=== PATIENT | male | born 1955 | race Caucasian/White ===

== ENCOUNTER 2018-01-20 21:43 | Emergency (ER) | payer OTHER, SELFPAY ==
[2018-01-20 21:48] VITALS: BP 196/103; PULSE 80; RESP 18; TEMP 36.9; O2SAT 99; BMI 29.9
[2018-01-20 22:47] VITALS: BP 186/107; PULSE 58; RESP 17; O2SAT 99
--- NOTE | 2018-01-20 23:35 | ED_ITS ---
HPI - Dental/Oral General Chief complaint: Dental/Oral Stated complaint: SWELLING OF LEFT SIDE CONCERN OF INFECTION PAIN Time Seen by Provider: 01/20/18 23:04 Source: patient Mode of arrival: ambulatory Limitations: no limitations History of Present Illness HPI Narrative: patient is a 62-year-old male who presents with left lower tooth pain. He says his it has been ongoing he saw a dentist 2 weeks ago he had a deep cleaning. The he then had increasing pain with the dentist today the dentist actually left but he did see the hygienist. Who repeated x-rays and thought that she saw an abscess. Was unable to prescribe him antibiotics pain progressively gotten worse. He has not had any fever or chills. He is at appointment with the dentist Tuesday morning. MD Complaint: tooth pain 2 1. No abscess no dentin Related Data Home Medications Medication Instructions Recorded Confirmed ASPIRIN (#ASPIRIN) 325 mg PO Q DAY #0 02/18/11 OMEPRAZOLE 20 mg PO Q DAY #0 02/18/11 Previous Rx's Medication Instructions Recorded atenolol 0 PO QDAY #90 tab 04/28/17 dextroamphetamine-amphetamine 20 20 mg PO BID #60 tab 01/02/18 mg tablet amoxicillin 500 mg PO TID #21 cap 01/20/18 Allergies Allergy/AdvReac Type Severity Reaction Status Date / Time No Known Drug Allergies Allergy Verified 01/20/18 21:48 Review of Systems Review of Systems GENERAL: Denies chills,fever HEENT: see HPI RESPIRATORY: Denies dyspnea, cough, wheezing CARDIOVASCULAR: Denies chest pain, palpitations GASTROINTESTINAL: Denies nausea, vomiting MUSCULOSKELETAL: Denies extremity pain, injury SKIN: No rash, no laceration, no pruritus NEUROLOGIC: Denies weakness, dizziness, headache, numbness 8 point review of systems is negative except for those stated above and HPI Exam Initial Vital Signs Initial Vital Signs: Vital Signs Temperature 98.5 F 01/20/18 21:48 Pulse Rate 80 01/20/18 21:48 Respiratory Rate 18 01/20/18 21:48 Blood Pressure 196/103 H 01/20/18 21:48 Pulse Oximetry 99 01/20/18 21:48 GENERAL: Well-appearing, well-nourished and in no acute distress. HENT: is no dental abscess, no trismus significant facial swelling CARDIOVASCULAR: peripheral pulses in tact, cap refill <2 sec RESPIRATORY: No respiratory distress, speaks in full sentences without difficulty EXTREMITIES: Normal range of motion, no clubbing or edema. Neurovascularly intact NEUROLOGICAL: Cranial nerves II through XII grossly intact. Normal gait and speech. SKIN: Warm, dry, no petechiae, no rashes or lesions. Course Orders Ordered: Discontinued Medications Amoxicillin ( Trimox 250mg Prepack) 1 bottle MISC SEEINSTR ONE Stop: 01/20/18 23:36 Last Admin: 01/20/18 23:49 Dose: 1 bottle Vital Signs - 8 hr 01/20/18 21:48 01/20/18 22:47 Temperature 98.5 F Pulse Rate 80 58 L Respiratory Rate 18 17 Blood Pressure 196/103 H Blood Pressure [Right Arm] 186/107 H Pulse Oximetry 99 99 MDM - Dental/Oral MDM Narrative Medical decision making narrative: offered patient a dental block however at this time he declined. Would just like antibiotics. Discharge Plan Departure Patient Disposition: Home Clinical Impression: Dental abscess Discharge Date/Time: 01/20/18 23:52 Interventions: ED Discharge Assessment Last Done: 01/20/18 23:52 Instructions: Tooth Abscess Activity Restrictions/Additional Instructions: *You have been diagnosed with Dental pain *Continue to take medications as directed amoxicillin 500 mg 3 times a day for 7 days Motrin 600 mg every 6-8 hours if needed Tylenol 650 mg every 4-6 hours if needed *Follow up with your primary care provider in 2-3 days, follow up with dentist *Return to ER if you should have increasing pain, facial swelling, or any new, worsening or concerning symptoms Prescriptions: New amoxicillin 500 mg capsule 500 mg PO TID Qty: 21 RF: 0 No Action ASPIRIN (#ASPIRIN) 325 mg PO Q DAY Qty: 0 RF: 0 OMEPRAZOLE 20 mg PO Q DAY Qty: 0 RF: 0 atenolol 50 MG tablet PO QDAY Qty: 90 RF: 3 dextroamphetamine-amphetamine [Adderall] 20 mg tablet 20 mg PO BID Qty: 60 RF: 0
[2018-01-20] MEDS: AMOXICILLIN 250 MG PREPACK 1 BOTTLE MISC (23:49)
== END 2018-01-20 23:52 | disposition home or self-care (01) ==
PROVIDERS: Emergency Provider Emergency Medicine; PCP Family Medicine
DX: K04.7 Periapical abscess without sinus (principal)
CPT/HCPCS: 99282

== ENCOUNTER → 2019-08-17 11:41 | Outpatient (CLI) | payer OTHER, SELFPAY ==
[2019-08-17 12:17] LABS: Add Manual Diff / Slide Review NO; Basophils Absolute Auto 100 /uL (0-100); Basophils Percent Auto 0.8 % (0-2); Eosinophils Absolute Auto 100 /uL (0-450); Eosinophils Percent Auto 2.2 % (2-4); Hematocrit 45.6 % (41-53); Hemoglobin 15.6 g/dL (13.5-17.5); Lymphocytes Absolute Auto 1300 /uL (1100-4500); Lymphocytes Percent Auto 19.3 % (25-40); Mean Corpuscular HGB Conc 34.3 % (30-36); Mean Corpuscular Volume 87.5 fL (80-100); Monocytes Absolute Auto 500 /uL (0-900); Monocytes Percent Auto 8.2 % (3-14); Neutrophils Absolute Auto 4500 /uL (1500-7000); Neutrophils Percent Auto 69.5 % (50-75); Platelet Count 386 X10^3/uL (150-400); Red Blood Cell Count 5.21 X10^6/uL (4.5-5.9); Red Cell Distribution Width 13.3 % (11.6-14.8); White Blood Cell Count 6.5 X10^3/uL (4.5-11.0)
[2019-08-17 13:33] LABS: Alanine Aminotransferase 23 IU/L (<50); Albumin 4.7 g/dL (3.5-5.0); Albumin Globulin Ratio 1.3 (1.0-2.8); Alkaline Phosphatase 56 U/L (38-126); Aspartate Aminotransferase 27 IU/L (17-59); BUN Creatinine Ratio 21.4 (6-22); Bilirubin Total 0.6 mg/dL (0.2-1.3); Blood Urea Nitrogen 21 mg/dL (9-20); Calcium 9.8 mg/dL (8.4-10.2); Carbon Dioxide 28 mmol/L (22-32); Chloride 103 mmol/L (98-107); Cholesterol 273 mg/dL (140-199); Estimated Glomerular Filt Rate > 60.0 mL/min (>60); Globulin 3.5 g/dL (1.7-4.1); Glucose 114 mg/dL (80-110); HDL Cholesterol 33 mg/dL (40-60); HEMOLYSIS < 15 (0-50); LDL Cholesterol Calculated 206 mg/dL (<100); Potassium 4.8 mmol/L (3.4-5.1); Sodium 141 mmol/L (137-145); Total Protein 8.2 g/dL (6.3-8.2); Triglycerides 169 mg/dL (35-150)
[2019-08-17 13:46] LABS: Thyroid Stimulating Hormone 1.14 uIU/mL (0.47-4.68)
[2019-08-17 13:55] LABS: Prostate Specific Antigen Scrn 2.41 ng/mL (0.1-4.0)
== END ==
PROVIDERS: PCP Family Medicine; Referring Provider Family Medicine; Visit Provider Family Medicine
DX: I10 Essential (primary) hypertension (principal)
CPT/HCPCS: 36415; 80053; 80061; 84443; 85025; G0103

== ENCOUNTER → 2020-03-18 11:52 | Outpatient (CLI) | payer OTHER, SELFPAY ==
[2020-03-18 12:54] LABS: Add Manual Diff / Slide Review NO; Basophils Absolute Auto 0 /uL (0-100); Basophils Percent Auto 0.6 % (0-2); Eosinophils Absolute Auto 100 /uL (0-450); Eosinophils Percent Auto 1.2 % (2-4); Hematocrit 40.4 % (41-53); Hemoglobin 13.8 g/dL (13.5-17.5); Lymphocytes Absolute Auto 1200 /uL (1100-4500); Lymphocytes Percent Auto 18.9 % (25-40); Mean Corpuscular HGB Conc 34.2 % (30-36); Mean Corpuscular Hemoglobin 29.6 PG (26-34); Mean Corpuscular Volume 86.6 fL (80-100); Monocytes Absolute Auto 500 /uL (0-900); Monocytes Percent Auto 7.4 % (3-14); Neutrophils Absolute Auto 4600 /uL (1500-7000); Neutrophils Percent Auto 71.9 % (50-75); Platelet Count 348 X10^3/uL (150-400); Red Blood Cell Count 4.66 X10^6/uL (4.5-5.9); Red Cell Distribution Width 12.9 % (11.6-14.8); White Blood Cell Count 6.4 X10^3/uL (4.5-11.0)
[2020-03-18 13:31] LABS: Hemoglobin A1C% w Est Avg Glu 5.4 % (4.0-6.0)
[2020-03-18 13:35] LABS: Alanine Aminotransferase 22 IU/L (<50); Albumin 4.3 g/dL (3.5-5.0); Albumin Globulin Ratio 1.3 (1.0-2.8); Alkaline Phosphatase 66 U/L (38-126); Aspartate Aminotransferase 22 IU/L (17-59); BUN Creatinine Ratio 17.2 (6-22); Bilirubin Total 0.6 mg/dL (0.2-1.3); Blood Urea Nitrogen 15 mg/dL (9-20); Calcium 9.1 mg/dL (8.4-10.2); Carbon Dioxide 32 mmol/L (22-32); Chloride 102 mmol/L (98-107); Cholesterol 257 mg/dL (140-199); Estimated Glomerular Filt Rate > 60.0 mL/min (>60); Globulin 3.2 g/dL (1.7-4.1); Glucose 103 mg/dL (80-110); HDL Cholesterol 42 mg/dL (40-60); HEMOLYSIS < 15 (0-50); LDL Cholesterol Calculated 194 mg/dL (<100); Potassium 4.1 mmol/L (3.4-5.1); Sodium 137 mmol/L (137-145); Total Protein 7.5 g/dL (6.3-8.2); Triglycerides 103 mg/dL (35-150)
[2020-03-18 13:56] LABS: Prostate Specific Antigen Scrn 2.28 ng/mL (0.1-4.0)
== END ==
PROVIDERS: PCP Family Medicine; Referring Provider Family Medicine; Visit Provider Family Medicine
DX: I10 Essential (primary) hypertension (principal); E78.2 Mixed hyperlipidemia
CPT/HCPCS: 36415; 80053; 80061; 83036; 85025; G0103

== ENCOUNTER 2022-07-02 06:19 | Emergency (ER) | payer MEDICARE, SELFPAY ==
[2022-07-02] VITALS (19 sets, daily range): BP systolic 139–232; BP diastolic 65–118; PULSE 71–81; RESP 17–52; TEMP 36.1; O2SAT 83–98; BMI 29.8
--- NOTE | 2022-07-02 06:20 | DI.CT.S_ITS ---
PROCEDURE: CT STROKE INDICATIONS: stroke TECHNIQUE: Noncontrast 4.5 mm thick angled axial sections acquired from the foramen magnum to the vertex, with coronal reformats. For radiation dose reduction, the following was used: automated exposure control, adjustment of mA and/or kV according to patient size. COMPARISON: None. FINDINGS: Image quality: Significant image degradation secondary to severe patient motion artifact. CSF spaces: Basal cisterns are patent. No extra-axial fluid collections. The ventricles are symmetric in size and shape. Brain: No intracranial bleeds or masses. There is cerebral volume loss for age, with resultant ventricular and sulcal prominence. There are periventricular and deep white matter chronic small vessel ischemic changes. There is intracranial internal carotid artery atherosclerosis. There is a small wedge-shaped area of low attenuation within the right temporoparietal region which extends to the cortical surface. Skull and face: Calvarium and visualized facial bones appear intact, without suspicious lesions. Sinuses: Visualized sinuses and mastoids are clear. IMPRESSION: Significantly limited evaluation secondary to severe patient motion artifact. Within these limitations, possible small infarct involving the right temporoparietal region. No acute intracranial hemorrhage identified. Findings were discussed with Dr. Lima by the overnight radiologist at 0649 hrs PST This study fulfills neurological imaging criteria for inclusion or exclusion of acute stroke therapies based on available published neurological guidelines. Dictated by: Albaro Felipe M.D. on 07/02/2022 at 7:47 Approved by: Albaro Felipe M.D. on 07/02/2022 at 8:00
--- NOTE | 2022-07-02 06:23 | ED.NEUROSD ---
HPI - Neuro Symptoms/Deficit General Chief Complaint: Neuro Symptoms/Deficit Stated Complaint: Stroke Time Seen by Provider: 07/02/22 06:20 History of Present Illness HPI Narrative: 66-year-old male former smoker with history of HTN, hyperlipidemia presents by EMS as a code stroke. Patient had been up all night playing video games with his sons and was last seen normal at 4:00 a.m.. EMS found to arrived to find patient in severe distress at the bottom of stairs but absolutely no indication of trauma. Patient states that he was unable to get up and has profound left-sided weakness. He does not take any blood thinners. He denies any pain or injury. He has left-sided facial droop, left arm and left leg weakness with apparent neglect. He is activated as a code stroke and taken straight to CT scan. His pressures in the field were 215 Patient very difficult to keep still in the CT suite, we are unable to obtain a CT angiogram at this time. No obvious bleed on dry head. 0640 -upon arrival back in trauma to his blood pressure is 232/109, patient still with profound left-sided findings including neglect, nicardipine drip ordered 0645 - patient fighting vigoursly with R side of body, L side flaccid. Labetalol 20mg with minimal improvement, Nicardipine started 0649 - HEAD CT READ from radiology, possible infarct 0710 -I have had a lengthy discussion with multiple members of the patient's family discussing the risks and benefits of tPA and all are quick to agree that the potential benefit greatly outweigh the risk. They do confirm that he has no contraindications, takes no blood thinners has had no recent surgeries no prior stroke no recent trauma. Blood pressure is now down 150s over 70s. Patient continues to have profound left-sided upper and lower extremity weakness with associated neglect. I have discussed with you would [facility] stroke neurologist who agrees with administration of tPA and patient remains potential IR candidate pending CT angiogram. TPA has been ordered, pharmacy is mixing. Family understands that patient will require transport to [facility] as we are unable to care for tPA patient's 0734 - Dr. Hays to accept. ANGELA called for weather check. Related Data Home Medications Medication Instructions Recorded Confirmed ASPIRIN (#ASPIRIN) 325 mg PO Q DAY ##0 02/18/11 05/08/20 Previous Rx's Medication Instructions Recorded atorvastatin 10 mg tablet 10 mg PO DAILY #90 tabs 02/18/20 diltiazem HCl 120 mg See Rx Instructions .Route 05/15/20 capsule,extended release 24 hr .COMPLEX #90 caps omeprazole 20 mg capsule,delayed See Rx Instructions .Route 06/09/21 release .COMPLEX #30 caps atenolol 50 mg tablet See Rx Instructions .Route 03/11/22 .COMPLEX #180 tabs dextroamphetamine-amphetamine 20 See Rx Instructions .Route 03/18/22 mg tablet .COMPLEX #270 tabs Allergies Allergy/AdvReac Type Severity Reaction Status Date / Time No Known Drug Allergies Allergy Verified 03/02/21 18:28 bee stings Allergy swelling Uncoded 03/02/21 18:28 Review of Systems Review of Systems ROS Unobtainable: All systems reviewed & are unremarkable except as noted in HPI and below Patient History Medical History Edema Essential hypertension Mixed hyperlipidemia Sympathetic nerve injury, 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 Well-developed patient, in obvious significant distress, profound left-sided weakness, diaphoretic. HEAD: Atraumatic. Normocephalic. EYES: Pupils equal round and reactive. Extraocular motions intact. No scleral icterus. No injection or drainage. ENT: Nose without bleeding, purulent drainage. Throat without erythema, tonsillar hypertrophy or exudate. Airway patent. NECK: Trachea midline. Non tender CARDIOVASCULAR: Regular rate and rhythm without murmurs, gallops, or rubs. RESPIRATORY: Clear to auscultation. Breath sounds equal bilaterally. No wheezes, rales, or rhonchi. GASTROINTESTINAL: Abdomen soft, non-tender, nondistended. EXTREMITIES: No edema or joint tenderness. BACK: Nontender without deformity or crepitance. No flank tenderness. NEURO: see below SKIN: No rash or erythema of visible areas Initial Vital Signs Initial Vital Signs: Vital Signs Pulse Rate 73 07/02/22 06:36 Respiratory Rate 22 07/02/22 06:36 Pulse Oximetry 93 07/02/22 06:36 Scores NIH Stroke Scale Level of Conciousness: Not alert, but arousable by minor stim to obey, answer or respond Ask month/age: Answers one question correctly, intubated follow commands Open/close eyes, close hand: Performs both tasks correctly Best gaze horizontal: Partial gaze palsy, can be overcome by finger tracking, head turning Visual ram: No visual loss Facial palsy: Partial paralysis, total or near total paralysis of lower face Left arm drift: No effort against gravity Right arm drift: No drift for full 10 sec Left leg drift: No effort against gravity Right leg drift: No drift for full 5 sec Limb ataxia: Absent Sensory on face/arms/legs: Severe to total sensory loss, not aware of touch, coma, quadriplegic Best language: Mild to moderate, slurs some words Dysarthria: Mild to mod,some slurring Extinction or inattention: Profound jessica-inattention. Does not recognize own hand, one side Total NIH Stroke scale score: 17 Course Orders Ordered: Discontinued Medications Nicardipine HCl 25 mg/ Sodium (Chloride) 250 mls @ 50 mls/hr IV TITRATE MINGO; Protocol Last Titration: 07/02/22 08:38 Dose: 10 mg/hr, 100 mls/hr Documented By: Titration: 07/02/22 07:50 Dose: 10 mg/hr, 100 mls/hr Documented By: Titration: 07/02/22 07:13 Dose: 12.5 mg/hr, 125 mls/hr Documented By: Titration: 07/02/22 07:05 Dose: 15 mg/hr, 150 mls/hr Documented By: Titration: 07/02/22 07:00 Dose: 12.5 mg/hr, 125 mls/hr Documented By: Titration: 07/02/22 06:57 Dose: 10 mg/hr, 100 mls/hr Documented By: Titration: 07/02/22 06:52 Dose: 7.5 mg/hr, 75 mls/hr Documented By: Admin: 07/02/22 06:46 Dose: 5 mg/hr, 50 mls/hr Documented By: HNG Alteplase, Recombinant (Activase) 9 mg in 9 mls @ 540 mls/hr 0.09 mg/kg (9 mg) IV NOW ONE Stop: 07/02/22 06:58 Last Infusion: 07/02/22 07:29 Dose: 0 mls/hr Documented By: Admin: 07/02/22 07:28 Dose: 540 mls/hr Documented By: JAKE Alteplase, Recombinant (Activase) 80.9 mg in 80.9 mls @ 80.9 mls/hr 0.81 mg/kg (80.9 mg) IV NOW ONE Stop: 07/02/22 07:56 Last Infusion: 07/02/22 08:29 Dose: 0 mls/hr Documented By: Admin: 07/02/22 07:29 Dose: 80.9 mls/hr Documented By: JAKE Labetalol HCl (Labetalol 20 Mg/4 Ml Syringe) 20 mg IV NOW ONE; Protocol Stop: 07/02/22 06:35 Last Admin: 07/02/22 06:45 Dose: 20 mg Documented By: JAKE Lorazepam (Lorazepam 2 Mg/Ml Inj) 1 mg IV NOW ONE Stop: 07/02/22 07:48 Last Admin: 07/02/22 07:50 Dose: 1 mg Documented By: JAKE Lorazepam (Lorazepam 2 Mg/Ml Inj) 1 mg IV NOW ONE Stop: 07/02/22 08:02 Last Admin: 07/02/22 08:02 Dose: 1 mg Documented By: JAKE Vital Signs Vital signs: Vital Signs - 8 hr 07/02/22 06:52 07/02/22 06:36 07/02/22 06:37 Temperature 97 F L Pulse Rate 72 73 Respiratory Rate 35 H 22 Blood Pressure 232/109 H 232/109 H Pulse Oximetry 98 93 Oxygen Delivery Method Room Air Oxygen Flow Rate 07/02/22 06:37 07/02/22 06:47 07/02/22 06:47 Temperature Pulse Rate 77 81 Respiratory Rate 21 37 H Blood Pressure 174/118 H Pulse Oximetry 92 Oxygen Delivery Method Oxygen Flow Rate 07/02/22 06:50 07/02/22 06:50 07/02/22 06:53 Temperature Pulse Rate 74 Respiratory Rate 17 Blood Pressure 194/95 H 203/96 H Pulse Oximetry Oxygen Delivery Method Oxygen Flow Rate 07/02/22 06:53 07/02/22 06:55 07/02/22 06:55 Temperature Pulse Rate 72 71 Respiratory Rate 32 H 34 H Blood Pressure 190/89 H Pulse Oximetry Oxygen Delivery Method Oxygen Flow Rate 07/02/22 07:00 07/02/22 07:00 07/02/22 07:05 Temperature Pulse Rate 78 Respiratory Rate 42 H Blood Pressure 196/93 H 179/81 H Pulse Oximetry Oxygen Delivery Method Oxygen Flow Rate 07/02/22 07:05 07/02/22 07:09 07/02/22 07:09 Temperature Pulse Rate 76 79 Respiratory Rate 44 H 37 H Blood Pressure 158/83 H Pulse Oximetry Oxygen Delivery Method Oxygen Flow Rate 07/02/22 07:10 07/02/22 07:10 07/02/22 07:15 Temperature Pulse Rate 75 Respiratory Rate 33 H Blood Pressure 158/77 H 160/74 H Pulse Oximetry Oxygen Delivery Method Oxygen Flow Rate 07/02/22 07:15 07/02/22 07:20 07/02/22 07:20 Temperature Pulse Rate 75 74 Respiratory Rate 44 H 39 H Blood Pressure 154/87 H Pulse Oximetry 83 L 87 L Oxygen Delivery Method Oxygen Flow Rate 07/02/22 07:25 07/02/22 07:25 07/02/22 07:30 Temperature Pulse Rate 76 Respiratory Rate 40 H Blood Pressure 162/88 H 156/89 H Pulse Oximetry 91 Oxygen Delivery Method Nasal Cannula Oxygen Flow Rate 4 07/02/22 07:30 Temperature Pulse Rate 77 Respiratory Rate 46 H Blood Pressure Pulse Oximetry 91 Oxygen Delivery Method Nasal Cannula Oxygen Flow Rate 4 MDM - Neuro Symptoms/Deficit Lab Data 07/02/22 06:35 07/02/22 06:35 Labs: Lab Results 07/02/22 07/02/22 07/02/22 Range/Units 06:35 06:35 06:35 WBC 16.8 H (4.5-11.0) X10^3/uL RBC 4.74 (4.5-5.9) X10^6/uL Hgb 14.1 (13.5-17.5) g/dL Hct 41.9 (41-53) % MCV 88.5 (80-100) fL MCH 29.8 (26-34) PG MCHC 33.7 (30-36) % RDW 13.7 (11.6-14.8) % Plt Count 393 (150-400) X10^3/uL Neut % (Auto) 78.2 H (50-75) % Lymph % (Auto) 11.6 L (25-40) % [place] % (Auto) 8.4 (3-14) % Eos % (Auto) 1.4 L (2-4) % Baso % (Auto) 0.4 (0-2) % Neut # (Auto) 67932 H (1529-4030) /uL Lymph # (Auto) 1900 (4057-6434) /uL [place] # (Auto) 1400 H (0-900) /uL Eos # (Auto) 200 (0-450) /uL Baso # (Auto) 100 (0-100) /uL PT 11.7 (10.1-12.7) SECONDS INR 1.0 (0.9-1.3) APTT 27 (26-36) SECONDS Sodium 140 (137-145) mmol/L Potassium 4.0 (3.4-5.1) mmol/L Chloride 103 (98-107) mmol/L Carbon Dioxide 27 (22-32) mmol/L BUN 32 H (9-20) mg/dL Creatinine 1.05 (0.66-1.25) mg/dL Estimated GFR > 60 (>60) mL/min BUN/Creatinine Ratio 30.5 H (6-22) Glucose 119 H (80-110) mg/dL Calcium 8.9 (8.4-10.2) mg/dL Total Bilirubin 0.6 (0.2-1.3) mg/dL AST 39 (17-59) IU/L ALT 43 (<50) IU/L Alkaline Phosphatase 57 (38-126) U/L Total Creatine Kinase 163 (55-170) U/L CK-MB (CK-2) 2.31 (<2.37) ng/mL CK-MB (CK-2) Rel Index 1.4 L (1.5-5.0) % Troponin I 0.025 (0.01-0.034) ng/mL Total Protein 7.6 (6.3-8.2) g/dL Albumin 4.2 (3.5-5.0) g/dL Globulin 3.4 (1.7-4.1) g/dL Albumin/Globulin Ratio 1.2 (1.0-2.8) Urine Color Urine Appearance Urine pH (4.5-8.0) Ur Specific [place] (1.000-1.035) Urine Protein (Negative) Urine Glucose (UA) (Negative) g/dL Urine Ketones (NEGATIVE) Urine Occult Blood (Negative) Urine Nitrate (Negative) Urine Bilirubin (NEGATIVE) Urine Urobilinogen (0.2) E.U./dL Ur Leukocyte Esterase (NEGATIVE) Urine RBC (0-5/HPF) Urine WBC (0-5/HPF) Ur Squamous Epith Cells (0-5/HPF) Urine Bacteria (None) Ur Culture Indicated? U Opiates 300ng/mL cut (Negative) Ur Oxycodone Screen (Negative) Urine Methadone Screen (Negative) Ur Barbiturates Screen (Negative) U Tricyclic Antidepress (Negative) Ur Phencyclidine Scrn (Negative) Ur Amphetamines Screen (Negative) U Methamphetamines Scrn (Negative) Ur MDMA Scrn (Ecstasy) (Negative) U Benzodiazepines Scrn (Negative) Urine Cocaine Screen (Negative) U Marijuana (THC) Screen (Negative) Ethyl Alcohol < 10 ( - 10) mg/dL SARS-CoV-2 (PCR) (Negative) 07/02/22 07/02/22 07/02/22 Range/Units 06:59 07:30 07:30 WBC (4.5-11.0) X10^3/uL RBC (4.5-5.9) X10^6/uL Hgb (13.5-17.5) g/dL Hct (41-53) % MCV (80-100) fL MCH (26-34) PG MCHC (30-36) % RDW (11.6-14.8) % Plt Count (150-400) X10^3/uL Neut % (Auto) (50-75) % Lymph % (Auto) (25-40) % [place] % (Auto) (3-14) % Eos % (Auto) (2-4) % Baso % (Auto) (0-2) % Neut # (Auto) (9856-7015) /uL Lymph # (Auto) (9522-3148) /uL [place] # (Auto) (0-900) /uL Eos # (Auto) (0-450) /uL Baso # (Auto) (0-100) /uL PT (10.1-12.7) SECONDS INR (0.9-1.3) APTT (26-36) SECONDS Sodium (137-145) mmol/L Potassium (3.4-5.1) mmol/L Chloride (98-107) mmol/L Carbon Dioxide (22-32) mmol/L BUN (9-20) mg/dL Creatinine (0.66-1.25) mg/dL Estimated GFR (>60) mL/min BUN/Creatinine Ratio (6-22) Glucose (80-110) mg/dL Calcium (8.4-10.2) mg/dL Total Bilirubin (0.2-1.3) mg/dL AST (17-59) IU/L ALT (<50) IU/L Alkaline Phosphatase (38-126) U/L Total Creatine Kinase (55-170) U/L CK-MB (CK-2) (<2.37) ng/mL CK-MB (CK-2) Rel Index (1.5-5.0) % Troponin I (0.01-0.034) ng/mL Total Protein (6.3-8.2) g/dL Albumin (3.5-5.0) g/dL Globulin (1.7-4.1) g/dL Albumin/Globulin Ratio (1.0-2.8) Urine Color Yellow Urine Appearance Clear Urine pH 6.0 (4.5-8.0) Ur Specific [place] 1.025 (1.000-1.035) Urine Protein 1+ H (Negative) Urine Glucose (UA) Negative (Negative) g/dL Urine Ketones Negative (NEGATIVE) Urine Occult Blood Negative (Negative) Urine Nitrate Negative (Negative) Urine Bilirubin Negative (NEGATIVE) Urine Urobilinogen 0.2 (0.2) E.U./dL Ur Leukocyte Esterase Negative (NEGATIVE) Urine RBC None seen (0-5/HPF) Urine WBC None seen (0-5/HPF) Ur Squamous Epith Cells None seen (0-5/HPF) Urine Bacteria None seen (None) Ur Culture Indicated? Cult not indicated U Opiates 300ng/mL cut Negative (Negative) Ur Oxycodone Screen Negative (Negative) Urine Methadone Screen Negative (Negative) Ur Barbiturates Screen Negative (Negative) U Tricyclic Antidepress Negative (Negative) Ur Phencyclidine Scrn Negative (Negative) Ur Amphetamines Screen Positive H (Negative) U Methamphetamines Scrn Negative (Negative) Ur MDMA Scrn (Ecstasy) Negative (Negative) U Benzodiazepines Scrn Negative (Negative) Urine Cocaine Screen Negative (Negative) U Marijuana (THC) Screen Positive H (Negative) Ethyl Alcohol ( - 10) mg/dL SARS-CoV-2 (PCR) Negative (Negative) Point of Care Testing Glucose POC 119 MDM Narrative Medical decision making narrative: 66-year-old male arrives as code stroke, last seen normal somewhere between 4 and 5 this morning and now has profound left-sided weakness. On arrival he is quite hypertensive encephalopathic in his taken directly to the CT suite and we are able to obtain a noncontrasted head CT but he is moving far too much to obtain a reliable CT angiogram. He is taken back to the trauma suite and antihypertensives are administered and he became more calm, once BP below threshhold tPA mixed and administered as noted. I have been in close contact with [facility] stroke provider, we are attempting to acquire CTA prior to his transport. He is becoming a bit restless and Dr. Hays has given permission to administer benzodiazepines if needed. I have had extensive conversation both with the patient and with his family, all are on board with the diagnosis, plan and understand the need for transfer. [facility] is EN route. Patient requires transfer for further evaluation and stabilization Critical Care Time Critical Care Time Critical Care Time: Yes Total Critical Care Time: 30 Attestation: The high probability of a clinically significant, sudden or life threatening deterioration of the [[place]] system(s) required my full and direct attention, intervention and personal management. The aggregate critical care time was [30] minutes. This time is in addition to time spent performing reported procedures but includes the following: [x] Data Review and interpretation [x] Patient assessment and monitoring of vital signs [x] Documentation [x] Medication orders and management Discharge Plan Departure Patient Disposition: [facility] Clinical Impression: Ischemic cerebrovascular accident (CVA) Prescriptions: No Action ASPIRIN (#ASPIRIN) 325 mg PO Q DAY Qty: 0 diltiazem HCl 120 mg capsule,extended release 24hr See Rx Instructions .ROUTE .COMPLEX Qty: 90 2RF Dose Instruction: TAKE 1 CAPSULE BY MOUTH EVERY MORNING Rx Instructions: TAKE 1 CAPSULE BY MOUTH EVERY MORNING omeprazole 20 mg capsule,delayed release(DR/EC) See Rx Instructions .ROUTE .COMPLEX Qty: 30 0RF Dose Instruction: TAKE 1 CAPSULE BY MOUTH DAILY Rx Instructions: TAKE 1 CAPSULE BY MOUTH DAILY atenolol 50 mg tablet See Rx Instructions .ROUTE .COMPLEX Qty: 180 1RF Dose Instruction: TAKE 1 TABLET BY MOUTH TWICE DAILY Rx Instructions: TAKE 1 TABLET BY MOUTH TWICE DAILY dextroamphetamine-amphetamine 20 mg tablet See Rx Instructions .ROUTE .COMPLEX Qty: 270 0RF Dose Instruction: TAKE 2 TABLETS BY MOUTH DAILY IN IN THE MORNING AND 1 TABLET IN THE AFTERNOON. Rx Instructions: TAKE 2 TABLETS BY MOUTH DAILY IN THE MORNING AND 1 TABLET IN THE AFTERNOON. atorvastatin 10 mg tablet 10 mg PO DAILY Qty: 90 3RF Referrals: Kristian Kim MD [Primary Care Provider] -
[2022-07-02] MEDS: LABETALOL 20 MG/4 ML SYRINGE IV (06:45)
[2022-07-02] MEDS: NICARDIPINE 25 MG in SODIUM CHLORIDE 0.9% 240 ML 50 MG IV (06:46)
[2022-07-02 07:00] LABS: Add Manual Diff / Slide Review NO; Basophils Absolute Auto 100 /uL (0-100); Basophils Percent Auto 0.4 % (0-2); Eosinophils Absolute Auto 200 /uL (0-450); Eosinophils Percent Auto 1.4 % (2-4); Hematocrit 41.9 % (41-53); Hemoglobin 14.1 g/dL (13.5-17.5); Lymphocytes Absolute Auto 1900 /uL (1100-4500); Lymphocytes Percent Auto 11.6 % (25-40); Mean Corpuscular HGB Conc 33.7 % (30-36); Mean Corpuscular Hemoglobin 29.8 PG (26-34); Mean Corpuscular Volume 88.5 fL (80-100); Monocytes Absolute Auto 1400 /uL (0-900); Monocytes Percent Auto 8.4 % (3-14); Neutrophils Absolute Auto 13100 /uL (1500-7000); Neutrophils Percent Auto 78.2 % (50-75); Platelet Count 393 X10^3/uL (150-400); Red Blood Cell Count 4.74 X10^6/uL (4.5-5.9); Red Cell Distribution Width 13.7 % (11.6-14.8); White Blood Cell Count 16.8 X10^3/uL (4.5-11.0)
--- NOTE | 2022-07-02 07:24 | DI.RAD.S_ITS ---
PROCEDURE: XR CHEST 1V INDICATIONS: hypoxia stroke TECHNIQUE: One view of the chest was acquired. COMPARISON: [facility], , CHEST 1 VIEW, 02/14/2012, 3:32. FINDINGS: Surgical changes and devices: Surgical clips are present. Lungs and pleura: Mild diffuse lung disease, particularly at the perihilar regions. No drainable effusion. Mediastinum: Mild cardiomegaly Bones and chest wall: No suspicious bony lesions. Overlying soft tissues appear unremarkable. IMPRESSION: Mild lung disease, particularly in the perihilar regions, possibly edema or airspace infection/inflammation. Consider future imaging surveillance to assess for resolution. Cardiomegaly, mild. Dictated by: Steven Weeks M.D. on 07/02/2022 at 8:26 Approved by: Steven Weeks M.D. on 07/02/2022 at 8:27
[2022-07-02] MEDS: ALTEPLASE 9 MG/9 ML VIAL 540 MG IV (07:28)
[2022-07-02] MEDS: ALTEPLASE IV (07:29)
[2022-07-02 07:32] LABS: COVID19 -Nasal RAPID Negative (Negative)
[2022-07-02 07:35] LABS: Alanine Aminotransferase 43 IU/L (<50); Albumin 4.2 g/dL (3.5-5.0); Albumin Globulin Ratio 1.2 (1.0-2.8); Alkaline Phosphatase 57 U/L (38-126); Aspartate Aminotransferase 39 IU/L (17-59); BUN Creatinine Ratio 30.5 (6-22); Bilirubin Total 0.6 mg/dL (0.2-1.3); Blood Urea Nitrogen 32 mg/dL (9-20); Calcium 8.9 mg/dL (8.4-10.2); Carbon Dioxide 27 mmol/L (22-32); Chloride 103 mmol/L (98-107); Creatine Kinase 163 U/L (55-170); Estimated Glomerular Filt Rate > 60 mL/min (>60); Ethanol (ETOH) < 10 mg/dL; Globulin 3.4 g/dL (1.7-4.1); Glucose 119 mg/dL (80-110); HEMOLYSIS 22 (0-50); Sodium 140 mmol/L (137-145); Total Protein 7.6 g/dL (6.3-8.2)
[2022-07-02 07:36] LABS: Prothrombin Time 11.7 SECONDS (10.1-12.7)
[2022-07-02 07:39] LABS: PTT Partial Thromboplastin Tim 27 SECONDS (26-36)
[2022-07-02 07:47] LABS: Troponin I 0.025 ng/mL (0.01-0.034)
[2022-07-02 07:50] LABS: CKMB % Relative Index 1.4 % (1.5-5.0); Creatine Kinase MB 2.31 ng/mL (<2.37)
[2022-07-02] MEDS: LORazepam 2 MG/ML INJ 1 MG IV ×2 (07:50→08:02)
--- NOTE | 2022-07-02 07:50 | PC.NURSE ---
Attempted two doses of ativan per Dr. Lazaro's orders and pt's movement has not improved. Unable to do CTA at this time.
[2022-07-02 08:00] LABS: Appearance Urine UA CLEAR; Bilirubin Urine UA NEGATIVE (NEGATIVE); Color Urine UA YELLOW; Glucose Urine UA NEGATIVE (Negative); Ketones Urine UA NEGATIVE (NEGATIVE); Leukocyte Esterase Urine UA NEGATIVE (NEGATIVE); Nitrite Urine UA NEGATIVE (Negative); Occult Blood Urine UA NEGATIVE (Negative); Protein Urine UA 1+ (Negative); Specific Gravity Urine UA 1.025 (1.000-1.035); Urobilinogen Urine UA 0.2 E.U./dL (0.2)
[2022-07-02 08:16] LABS: Bacteria Urine None Seen; Culture Indicated Urine Cult Not Indicated; RBC Urine None Seen (0-5/HPF); Squamous Epithelial Cell Urine None Seen (0-5/HPF); WBC Urine None Seen (0-5/HPF)
[2022-07-02 08:20] LABS: UR Morphine/Opiate cutoff 300 Negative (Negative); Ur Creatinine Normal (Normal); Ur Specific Gravity Normal (Normal); Urine Amphetamines Positive (Negative); Urine Barbiturates Negative (Negative); Urine Benzodiazepines Negative (Negative); Urine Cocaine Negative (Negative); Urine MDMA Negative (Negative); Urine Methadone Negative (Negative); Urine Methamphetamines Negative (Negative); Urine Oxycodone Negative (Negative); Urine Phencyclidine Negative (Negative); Urine Tetrahydrocannabinol Positive (Negative); Urine Tricyclic Antidepressant Negative (Negative); Urine pH Normal (Normal)
== END 2022-07-02 08:30 | disposition short-term general hospital (02) ==
PROVIDERS: Emergency Provider Emergency Medicine; PCP Family Medicine
DX: I63.9 Cerebral infarction, unspecified (principal); I10 Essential (primary) hypertension; R29.717 NIHSS score 17; Z20.822 Contact with and (suspected) exposure to COVID-19
CPT/HCPCS: 36415; 70450; 71045; 80053; 80305; 80320; 81001; 82550; 82553; 82962; 84484; 85025; 85610; 85730; 87635; 93005; 93010; 96365; 96366; 96368; 96375; 99285; 99291; 99292; C9803; J2060; J2997

== ENCOUNTER → 2023-05-09 09:23 | Outpatient (CLI) | payer MEDICARE, SELFPAY ==
--- NOTE | 2023-05-09 | DI.ECHO.S_ITS ---
[facility] +---------+ : : [address] : : : : [id number] : : : : Phone: [phone]---------+ Echocardiogram Report + + :Name: SHAN LUKE I Study Date: 05/09/2023 Height: 71 in : :[facility] [employer] [facility] ReadingLocation: Weight: 220 lb : : Gender: Male BSA: 2.2 m2 : :: 1955 Age: 67 yrs BP: 123/86 mmHg: :Reason For Study: CARDIOMYOPATHY : :Ordering Physician: CHRIST, : :RIMA Dahl Performed By: Gretta Calderon : :Referring: RIMA ALAS : + + Interpretation Summary The patient was in atrial fibrillation with heart rates between 50-70 bpm during the exam. Left ventricular wall thickness is mildly increased. Left ventricular ejection fraction is estimated to be 40 +/- 5%. There is a significant dyssynchronous contraction pattern, consistent with a conduction abnormality. Diastolic function could not be accurately assessed due to atrial fibrillation. The left atrium is moderately dilated. The right ventricle is mildly dilated. The right ventricular systolic function is normal. The right atrium is mildly dilated. Pulmonary artery pressures cannot be estimated because of the lack of a measurable TR jet velocity but the IVC suggests a CVP of around 3 mmHg. The ascending aorta is mildly enlarged, 3.7 cm. Procedure: A two-dimensional transthoracic echocardiogram with color flow and Doppler was performed. The study quality was technically adequate. There is no prior echocardiogram noted for this patient. The patient was in atrial fibrillation with heart rates between 50-70 bpm during the exam. Left Ventricle: Left ventricular wall thickness is mildly increased. The left ventricle is normal in size. Left ventricular ejection fraction is estimated to be 40 +/- 5%. There is a significant dyssynchronous contraction pattern, consistent with a conduction abnormality. Diastolic function could not be accurately assessed due to atrial fibrillation. Right Ventricle: The right ventricle is mildly dilated. The right ventricular systolic function is normal. Atria: The left atrium is moderately dilated. The right atrium is mildly dilated. There is no Doppler evidence for an interatrial shunt. Mitral Valve: The mitral valve is normal in structure and function. There is trace mitral regurgitation. Aortic Valve: The aortic valve is trileaflet. The aortic valve opens well. There is no aortic valve stenosis. No aortic regurgitation is present. Tricuspid Valve: The tricuspid valve is normal in structure and function. There is mild tricuspid regurgitation. Pulmonary artery pressures cannot be estimated because of the lack of a measurable TR jet velocity but the IVC suggests a CVP of around 3 mmHg. Pulmonic Valve: The pulmonic valve leaflets are thin and pliable; valve motion is normal. There is no pulmonic valvular regurgitation. Great Vessels: The aortic root is normal size. The ascending aorta is mildly enlarged. The IVC is of normal diameter and collapses greater than 50% with a sniff. This suggests a low right atrial pressure of 3 mm Hg. Pericardium/ Pleura There is no pericardial effusion. There is no pleural effusion. MMode/2D Measurements & Calculations LVIDd: 5.1 cm LVOT diam: 2.1 cm LVIDs: 4.1 cm Ao root diam: 3.4 cm FS: 19.6 % asc Aorta Diam: 3.7 cm IVSd: 1.3 cm Ao Arch Diam (Prox Trans): 3.2 cm LVPWd: 1.0 cm LV berger. diameter/BSA (cm/m^2): 2.3 LV sys. diameter/BSA (cm/m^2): 1.9 LA A2 area: 31.2 cm2 RA long axis: 5.9 cm LA A4 area: 23.7 cm2 RA area: 23.7 cm2 LA length (vol): 6.2 cm RA vol: 80.8 ml LA vol: 102.0 ml RA : 36.8 ml/m2 LA vol index: 46.4 ml/m2 IVC diam: 1.7 cm RVD1 (basal): 4.6 cm TAPSE: 1.8 cm Doppler Measurements & Calculations Ao V2 max: 131.4 cm/sec LVOT Max Olaf: 76.5 cm/sec Ao V2 mean: 94.7 cm/sec LV V1 max P.3 mmHg Ao max P.9 mmHg LV V1 VTI: 13.6 cm Ao mean P.0 mmHg MARLIN(I,D): 2.1 cm2 Ao V2 VTI: 22.3 cm MARLIN(V,D): 2.0 cm2 sev ratio: 0.61 MARLIN indexed to BSA (cm^2/m^2): 0.96 MV E max olaf: 83.7 cm/sec TR max olaf: 230.5 cm/sec MV A max olaf: 1.1 cm/sec TR max P.2 mmHg MV E/A: 78.5 PA V2 max: 96.7 cm/sec Med Peak E' Olaf: 5.3 cm/sec PA V2 mean: 65.7 cm/sec E/E' med: 15.9 PA mean P.0 mmHg Lat Peak E' Olaf: 11.3 cm/sec PA pr(Accel): 37.9 mmHg E/E' lat: 7.4 E/e' average: 11.6 MV dec time: 0.26 sec SV(LVOT): 47.2 ml Reading Physician:12:56 PM
--- NOTE | 2023-05-10 03:11 | DI.NM.S_ITS ---
DATE OF SERVICE: 05/09/2023 PHARMACOLOGICAL PERFUSION STUDY: INDICATIONS: Atrial fibrillation, , hypertension, hyperlipidemia, left bundle branch block, CVA. RADIOPHARMACEUTICAL: 27.4 millicurie technetium-99m Myoview IV was injected at stress and 12.8 millicurie technetium-99m Myoview IV was injected at rest. CARDIAC STRESS: The patient underwent IV Lexiscan perfusion study under the supervision of an attending staff as per standard protocol. Baseline rhythm AFib with left bundle branch block with slow ventricular rate. During stress, no convincing new ischemic changes seen. The patient remained in AFib, the heart rate went up to 70s and 80s. Resting heart rate was in 50s. Maximum blood pressure 155/80. The patient had shortness of breath during Lexiscan, but no chest pain. RAW DATA: Breast shadow was seen. There is increased subdiaphragmatic activity. GATED STUDY: Resting LV ejection fraction 59% and stress LV ejection fraction 53%. Septal wall motion abnormalities. Resting end-diastolic volume 160 mL, suggestive of dilated LV. TID ratio 1.06, which is within normal limits. Lung heart ratio 0.30, which is within normal limits. MYOCARDIAL PERFUSION SCAN: Stress supine and resting supine images were compared to each other. There is no stress prone images. Stress supine images revealed small size, mildly decreased perfusion of basal inferior wall. Resting supine images revealed moderate size, moderately decreased perfusion of inferior wall as well as severely decreased perfusion of [id number] anterior wall. No reversible ischemia. Summed stress score 1, and summed rest score 5. CONCLUSION: This is an abnormal myocardial perfusion study. There is no stress prone images. Stress supine and resting supine images were compared to each other. There is a fixed small size basal inferior wall defect. Summed stress score 1 and summed rest score of 5. Stress supine images showed better perfusion than resting supine images. There is an element of diaphragmatic tissue attenuation artifact, as well as breast shadow. However, cannot rule out small size basal inferior wall infarction. Stress left ventricular ejection fraction 53% and resting left ventricular ejection fraction 59%. Underlying left bundle branch block with atrial fibrillation. In absence of reversible ischemia and overall preserved LV function, a low-risk myocardial perfusion scan. Correlate clinically. Kari Figueroa - JIM/sweta/eduardo doc#: [id number]/job#: [id number] dd: 05/09/2023 16:28:00 dt: 05/10/2023 02:39:00 DICTATING MD/COPIES TO: Erich Carmona MD COPIES MNE: SUSI;
== END ==
LOC: ECHO 09:25
PROVIDERS: Family Provider Family Medicine; PCP Family Medicine; Referring Provider Internal Medicine Cardiovascular Disease; Visit Provider Internal Medicine Cardiovascular Disease
DX: I42.9 Cardiomyopathy, unspecified (principal); I07.1 Rheumatic tricuspid insufficiency; I77.89 Other specified disorders of arteries and arterioles; R94.39 Abnormal result of other cardiovascular function study; I48.0 Paroxysmal atrial fibrillation; I10 Essential (primary) hypertension; E78.5 Hyperlipidemia, unspecified; I44.7 Left bundle-branch block, unspecified; I69.354 Hemiplegia and hemiparesis following cerebral infarction affecting left non-dominant side; Z79.01 Long term (current) use of anticoagulants
CPT/HCPCS: 78452; 93017; 93306; A9502; J2785

== ENCOUNTER → 2023-08-26 09:27 | Outpatient (CLI) | payer MEDICARE, SELFPAY ==
[2023-08-26 10:19] LABS: Add Manual Diff / Slide Review NO; Basophils Absolute Auto 0 /uL (0-100); Basophils Percent Auto 0.4 % (0-2); Eosinophils Absolute Auto 100 /uL (0-450); Eosinophils Percent Auto 1.3 % (2-4); Hematocrit 44.2 % (41-53); Hemoglobin 15.1 g/dL (13.5-17.5); Lymphocytes Absolute Auto 1400 /uL (1100-4500); Lymphocytes Percent Auto 17.7 % (25-40); Mean Corpuscular HGB Conc 34.1 % (30-36); Mean Corpuscular Hemoglobin 29.9 PG (26-34); Mean Corpuscular Volume 87.7 fL (80-100); Monocytes Absolute Auto 600 /uL (0-900); Neutrophils Absolute Auto 5900 /uL (1500-7000); Neutrophils Percent Auto 72.6 % (50-75); Platelet Count 304 X10^3/uL (150-400); Red Blood Cell Count 5.03 X10^6/uL (4.5-5.9); Red Cell Distribution Width 13.3 % (11.6-14.8); White Blood Cell Count 8.1 X10^3/uL (4.5-11.0)
[2023-08-26 14:25] LABS: Alanine Aminotransferase 20 IU/L (<50); Albumin 4.3 g/dL (3.5-5.0); Albumin Globulin Ratio 1.5 (1.0-2.8); Alkaline Phosphatase 52 U/L (38-126); Aspartate Aminotransferase 28 IU/L (17-59); BUN Creatinine Ratio 29.8 (6-22); Bilirubin Total 0.8 mg/dL (0.2-1.3); Blood Urea Nitrogen 34 mg/dL (9-20); Calcium 9.1 mg/dL (8.4-10.2); Carbon Dioxide 30 mmol/L (22-32); Chloride 104 mmol/L (98-107); Cholesterol 190 mg/dL (140-199); Estimated Glomerular Filt Rate > 60 mL/min (>60); Globulin 2.9 g/dL (1.7-4.1); Glucose 97 mg/dL (80-110); HDL Cholesterol 42 mg/dL (40-60); HEMOLYSIS < 15 (0-50); LDL Cholesterol Calculated 123 mg/dL (<100); Potassium 3.8 mmol/L (3.4-5.1); Sodium 140 mmol/L (137-145); Total Protein 7.2 g/dL (6.3-8.2); Triglycerides 124 mg/dL (35-150)
[2023-08-26 14:46] LABS: Prostate Specific Antigen Scrn 1.66 ng/mL (0.1-4.0)
[2023-08-26 16:14] LABS: TSH w/ Reflex to FT4 1.07 uIU/mL (0.47-4.68)
[2023-08-26 16:26] LABS: Creatinine Urine Random 126.35 mg/dL
[2023-08-26 16:27] LABS: Microalbumin Urine Random 0.9 mg/dL (0-1.6)
[2023-08-27 08:17] LABS: Apolipoprotein B 102 mg/dL (<90)
== END ==
PROVIDERS: Family Provider Family Medicine; PCP Family Medicine; Referring Provider Family Medicine; Visit Provider Family Medicine
DX: I48.91 Unspecified atrial fibrillation (principal); I63.9 Cerebral infarction, unspecified; Z12.5 Encounter for screening for malignant neoplasm of prostate; Z00.00 Encounter for general adult medical examination without abnormal findings; I10 Essential (primary) hypertension; E78.2 Mixed hyperlipidemia; F90.9 Attention-deficit hyperactivity disorder, unspecified type
CPT/HCPCS: 36415; 80053; 80061; 82043; 82172; 82570; 84443; 85025; G0103

== ENCOUNTER 2023-11-29 14:30 | Outpatient (RCR) | payer MEDICARE, SELFPAY ==
--- NOTE | 2023-03-01 16:00 | OT.OP.EVAL ---
Visit Care Team Role Provider Type Kristian Kim MD Attending Provider Physician Family Provider Primary Care Provider Referring Provider Specialty: Family Practice Address: [address] [place] [address], [facility] Email: [email or web address] Occupational Therapy Initial Evaluation OT Outpatient Adult Evaluation Start: 03/02/23 09:26 Freq: Status: Active Protocol: Document 03/01/23 16:00 [facility] (Rec: 03/02/23 10:04 [facility] [id number]) General Information - Adult Visit Number 04/20; 04/29 --> visit KX Modifier Plan of Care Dates 03/01/23 - 05/24/23 Insurance Information Medicare Visit Start Time 08:45 Visit Stop Time 09:40 Total Visit Minutes 55 Goals Treatment Tone management/wegiht bearing /weight shifting. Short Term Goals 1. Kari will present with improved active range of motion of the left upper extremity, this will be evidenced by the followina. 35 degrees active L shoulder flexion. 1b. 45 degrees active L shoulder abduction. 1c. 10 degrees active L elbow extension. 2. Kari will present with improved functional abilities; this will be evidenced by ability to verbalize and/or demonstrate use of 2 to 3 different AE/ modification/compensatory strategies in the home. Detention Goals 1. Kari will be modified independent with execution of home exercise program utilizing provided written and visual instructions from therapist as needed. Assessment/Plan Treatment Assessment Kari is a 67 year-old R hand dominant male referred to outpatient OT by PCP d/t L UE weakness secondary to stroke that occurred in June of 2022 . Medical history: Blood pressure, CHF, h/o falls, h/o R rotator cuff tear. Kari reported that he resides w/ his and son (Santana) who are available to assist him; they reside in a 4-story home (w/ bedroom and bath on 3rd floor of home) and he is retired. He has modified a brief case to assist w/ transporting of items which is equipped w/ cross body strap; use of countertops to transport items via sliding. ( +) 1-handed buttoning noted w/ R hand. Sleeps on R side since having stroke. completes meal prep in home. He presents ambulating w/ SPC (he progressed from manual w/c --> hemiwalker --> SPC). He has received home health PT and is currently being seen in the outpatient clinic at [facility] by PT. AFO has been rec by PT; he presented without AFO. He was reportedly previously seen by speech and discharged d/t no concerns re : cognition, speech, and/or swallow. He was seen by [facility] OT. He is not using L UE sling and/or distal UE splint. He does have a home e-stim unit; he is actively stretching the L hand/digits into extension to maintain available range of motion. Patient Goals: Address L UE function. Pain Assessment Grid completed ; no pain/discomfort indicated . Denial of any changes in sensation of L UE. QuickDASH UE Outcome Measure Score = 20. 45; QuickDASH Sports/ Performing Arts Module Score = 100.00 (hobbies included pickleball, scuba diving, playing the theAudience, riding motorcycles). (+) mild L g/h/sh subluxation. (+) active L sh elevation; (+) L scapular retraction noted w/ L sh elevation. Goniometer measurements were completed in sitting; 25 degrees active L sh flexion; 20 degrees active L sh extension; 35 degrees active L sh abd; 95 degrees active L elbow flexion; full active L forearm pronation; (- ) active forearm supination; ( -) active L elbow ext; 25 degrees active L wrist flex; ( -) active L wrist ext; full active L sh IR; (-) active L sh ER. 20.0# of force L library historian w / dynamometer II testing w/ elbow in 90 degrees flexion. ( +) flexor tone pattern/typical UE jessica pattern observed w/ active movement. Good weight shifting L <-> R seated at EOM ; able to maintain both feet on floor w/ trunk ext. Outpatient OT is recommended to address L UE function, including but not limited to active range of motion, tone management, motor planning, awareness of L UE in space, education re: AE/modification/ compensatory strategies to support functional abilities. Length of treatment (weeks) 12 Plan of Care Start Date 03/01/23 Plan of Care End Date 05/24/23 Treatment Frequency Once a Week Therapeutic Contents Active Range of Motion, Adaptive Equipment Education, Functional Activities,Home Exercise Program,Joint Protection,Manual Therapy, Education,Neurodevelopment Treatment,Neuromuscular Re- Education,Self-Care,Stretching /Flexibility Activities, Therapeutic Activities, Therapeutic Exercises, Modalities Modalities As Needed,As Prescribed Additional Types of Modalities Heat/Ice/Contrast Baths/ Ultrasound/E-stim
--- NOTE | 2023-03-09 16:05 | OT.OP.TRT ---
Visit Care Team Role Provider Type Kristian Kim MD Attending Provider Physician Family Provider Primary Care Provider Referring Provider Specialty: Family Practice Address: [address] [place] [address], [facility] Email: [email or web address] Occupational Therapy Treatment Note OT Outpatient Treatment Note - Adult Start: 03/02/23 09:26 Freq: Status: Active Protocol: Document 03/09/23 15:50 AMS (Rec: 03/09/23 16:05 AMS [id number]) OT Outpatient Adult Treatment Note Session Time Visit Start Time 13:30 Visit Stop Time 14:25 Total Visit Minutes 55 Visit Information Visit Number 05/21; 05/30 --> visit KX modifier Plan of Care Dates 03/01/23 - 05/24/23 Insurance Information Medicare Setting Treatment Setting Outpatient Care Visit Type Note Type Treatment Note General Information General Information Kari is a 67 year-old R hand dominant male referred to outpatient OT by PCP d/t L UE weakness secondary to stroke that occurred in June of 2022 . Medical history: Blood pressure, CHF, h/o falls, h/o R rotator cuff tear. Kari reported that he resides w/ his and son (Santana) who are available to assist him; they reside in a 4-story home (w/ bedroom and bath on 3rd floor of home) and he is retired. He has modified a brief case to assist w/ transporting of items which is equipped w/ cross body strap; use of countertops to transport items via sliding. ( +) 1-handed buttoning noted w/ R hand. Sleeps on R side since having stroke. completes meal prep in home. He presents ambulating w/ SPC (he progressed from manual w/c --> hemiwalker --> SPC). He has received home health PT and is currently being seen in the outpatient clinic at [facility] by PT. AFO has been rec by PT; he presented without AFO. He was reportedly previously seen by speech and discharged d/t no concerns re : cognition, speech, and/or swallow. He was seen by [facility] OT. He is not using L UE sling and/or distal UE splint. He does have a home e-stim unit; he is actively stretching the L hand/digits into extension to maintain available range of motion. - Subjective Identification Type Name Observations Kari indicated that he had a PT visit immediately following OT visit. Report of need to wear mitten on L hand d/t poor circulation. Monitor for c/o pain L sh given subluxation w/ L sh abduction. Patient Expectation/Goals Address L UE function Patient/Caregiver Compliance with Home Good Exercise Program - Objective Objective Measurements Please refer to below for progress towards meeting established OT goals: Short Term Goals 1. Kari will present with improved active range of motion of the left upper extremity, this will be evidenced by the followina. 35 degrees active L shoulder flexion. 1b. 45 degrees active L shoulder abduction. 1c. 10 degrees active L elbow extension. 2. Kari will present with improved functional abilities; this will be evidenced by ability to verbalize and/or demonstrate use of 2 to 3 different AE/ modification/compensatory strategies in the home. Residential Goals 1. Kari will be modified independent with execution of home exercise program utilizing provided written and visual instructions from therapist as needed. - Treatment 1 Descriptor Yemeni e-stim. 10/10 cycle. Facilitation of L elbow extension in supine. Intensity 40. Skin intact pre- and post - treatment. Variable muscle response to cycle(s) noted. Exercises 2 Descriptor Seated sh add. Use of TT. 1 x 10. Rec addition of pillow vs fleece blanket vs additional alternatives given sensitivities of skin. 1 Descriptor Supine UE exercises. Sh ext. 3 x 10. Min phys assist to facilitate. Sh abd. 3 x 10. Min phys assist to facilitate to 90 degrees sh abd. Elbow flex. Active ROM. 3 x 10 . Clinician facilitated -> approx 100 degrees w/ wrist flexion. Elbow ext. Muscle tapping to facilitate. 3 x 10. Clinician facilitated -> full elbow flexion -> actively ext to 90 degrees of elbow flex. Wrist flex. 3 x 10. Forearm in neutral. Positioning of wrist in ext. Passive ER by clinician. 2 x 10. - Assessment Assessment of Improvement Initiated e-stim protocol to facilitate L elbow ext; variable response to modality w/ elbow ext. Modified supine elbow ext and provided blocking to facilitate active elbow flex given tendency to abduct at sh and IR in typical jessica pattern. Introduced neuro retraining sh add w/ Kari's expression of most success in sitting w/ use of TT (w/ need for modifications given preference for digit extension/sensitivity to textures/decreased circulation ). Overall, good session. Outpatient OT is recommended to address L UE function, including but not limited to active range of motion, tone management, motor planning, awareness of L UE in space, education re: AE/modification/ compensatory strategies to support functional abilities. Home Exercise Program 03/09/23 = Motor planning sh add; rec use of TT 3 x 10 every other day or 3 x a week. - Plan Therapy Recommendations Continue with Current Program, Advance per Rehabilitation Protocol
--- NOTE | 2023-03-16 16:00 | OT.OP.TRT ---
Visit Care Team Role Provider Type Kristian Kim MD Attending Provider Physician Family Provider Primary Care Provider Referring Provider Specialty: Family Practice Address: [address] [place] [address], [facility] Email: [email or web address] Occupational Therapy Treatment Note OT Outpatient Treatment Note - Adult Start: 03/02/23 09:26 Freq: Status: Active Protocol: Document 03/16/23 16:00 AMS (Rec: 03/17/23 10:21 AMS [id number]) OT Outpatient Adult Treatment Note Session Time Visit Start Time 14:40 Visit Stop Time 15:25 Total Visit Minutes 45 Visit Information Visit Number 06/18; 06/27 --> visit KX modifier Plan of Care Dates 03/01/23 - 05/24/23 Insurance Information Medicare Setting Treatment Setting Outpatient Care Visit Type Note Type Treatment Note General Information General Information Kari is a 67 year-old R hand dominant male referred to outpatient OT by PCP d/t L UE weakness secondary to stroke that occurred in June of 2022 . Medical history: Blood pressure, CHF, h/o falls, h/o R rotator cuff tear. Kari reported that he resides w/ his and son (Santana) who are available to assist him; they reside in a 4-story home (w/ bedroom and bath on 3rd floor of home) and he is retired. He has modified a brief case to assist w/ transporting of items which is equipped w/ cross body strap; use of countertops to transport items via sliding. ( +) 1-handed buttoning noted w/ R hand. Sleeps on R side since having stroke. completes meal prep in home. He presents ambulating w/ SPC (he progressed from manual w/c --> hemiwalker --> SPC). He has received home health PT and is currently being seen in the outpatient clinic at [facility] by PT. AFO has been rec by PT; he presented without AFO. He was reportedly previously seen by speech and discharged d/t no concerns re : cognition, speech, and/or swallow. He was seen by [facility] OT. He is not using L UE sling and/or distal UE splint. He does have a home e-stim unit; he is actively stretching the L hand/digits into extension to maintain available range of motion. - Subjective Identification Type Name Observations Kari indicated that he had a PT visit immediately following OT visit. *Monitor for pain w/ R sh abd. Patient Expectation/Goals Address L UE function Patient/Caregiver Compliance with Home Good Exercise Program - Objective Objective Measurements Please refer to below for progress towards meeting established OT goals: Short Term Goals 1. Kari will present with improved active range of motion of the left upper extremity, this will be evidenced by the followina. 35 degrees active L shoulder flexion. 1b. 45 degrees active L shoulder abduction. 1c. 10 degrees active L elbow extension. 2. Kari will present with improved functional abilities; this will be evidenced by ability to verbalize and/or demonstrate use of 2 to 3 different AE/ modification/compensatory strategies in the home. Skilled Nursing Goals 1. Kari will be modified independent with execution of home exercise program utilizing provided written and visual instructions from therapist as needed. - Treatment 1 Descriptor Swedish e-stim. 10/10 cycle. Facilitation of L elbow extension in supine. Intensity 40. Skin intact pre- and post - treatment. Variable muscle response to cycle(s) noted. Exercises 3 Descriptor Tone management/functional weight bearing. EOM. Trunk flexion. 1 x 10. Use of dycem. EOM. Upright sitting. L <-> R weight shift. 1 x 10. 2 Descriptor Seated UE exercises. L sh elevation. 1 x 5. N/A 03/15/23 Use of TT. 1 x 10. Rec addition of pillow vs fleece blanket vs additional alternatives given sensitivities of skin. 1 Descriptor Supine UE exercises. Sh ext. 3 x 10. Min phys assist to facilitate. 1 x 10 focus on controlled descent. CGA to min phys assist. Sh abd. 3 x 10. Min phys assist to facilitate to 90 degrees sh abd. Elbow flex. Active ROM. 3 x 10 . Clinician positioning of elbow in approx 80 degrees elbow flex -> then actively completed thru rest of ROM. Sh add. 2 x 10. Sh medium-sized circles. 1 x 10 in both directions. CGA to min phys assist to support motor control at sh level. Passive ER by clinician. 2 x 10. - Assessment Assessment of Improvement Slightly improved L sh add in supine; however, as elbow becomes loser to lateral trunk begins to IR and flex elbow/ pronate forearm into typical jessica pattern. Demonstrated good ability to maintain elbow extension, as observed w/ sh ext, sh circles in supine. (-) ability to motor plan backwards sh circles; demonstrates some sh elevation and scapular retraction; tendency into elbow flex w/ scapular pinches. Rec trialing use of cane to support motor planning/combining elbow ext and sh ext/scapular retraction /and possibly using w/ backwards sh circles. Use of dycem to facilitate WB seated at EOM; decreased ability to maintain positioning of L hand on mat w/ trunk flexion; thus , modified and/or provided phys support. Instructed in modified ER in supine (R hand assist, w/ use of pillow. could be completed w/ use of heat), improved ER noted w/ prolonged stretch, 2nd trial; no c/o pain/discomfort w/ this stretch in L sh. Overall, good session. Outpatient OT is recommended to address L UE function, including but not limited to active range of motion, tone management, motor planning, awareness of L UE in space, education re: AE/modification/ compensatory strategies to support functional abilities. Home Exercise Program 03/17/23 = Rec completion of UE tone management exercises daily; passively stretching L UE out of typical jessica pattern daily (which would include daily execution of modified ER stretch supine, for 20 to 30+ sec, 2-3 repetitions based on response in today's session, w/ use of pillow support for L elbow w/ support of family member, and possible use of heat for 5-10 minutes as tolerated/w/ temperature skin being monitored given change in UE sensation). 03/09/23 = Motor planning sh add; rec use of TT 3 x 10 every other day or 3 x a week. - Plan Therapy Recommendations Continue with Current Program, Advance per Rehabilitation Protocol
--- NOTE | 2023-03-23 16:00 | OT.OP.TRT ---
Visit Care Team Role Provider Type Kristian Kim MD Attending Provider Physician Family Provider Primary Care Provider Referring Provider Specialty: Family Practice Address: [address] [place] [address], [facility] Email: [email or web address] Occupational Therapy Treatment Note OT Outpatient Treatment Note - Adult Start: 03/02/23 09:26 Freq: Status: Active Protocol: Document 03/23/23 16:00 AMS (Rec: 03/24/23 12:52 AMS [id number]) OT Outpatient Adult Treatment Note Session Time Visit Start Time 13:30 Visit Stop Time 14:25 Total Visit Minutes 55 Visit Information Visit Number 07/19; 07/28 --> visit KX modifier Plan of Care Dates 03/01/23 - 05/24/23 Insurance Information Medicare Setting Treatment Setting Outpatient Care Visit Type Note Type Treatment Note General Information General Information Kari is a 67 year-old R hand dominant male referred to outpatient OT by PCP d/t L UE weakness secondary to stroke that occurred in June of 2022 . Medical history: Blood pressure, CHF, h/o falls, h/o R rotator cuff tear. Kari reported that he resides w/ his and son (Santana) who are available to assist him; they reside in a 4-story home (w/ bedroom and bath on 3rd floor of home) and he is retired. He has modified a brief case to assist w/ transporting of items which is equipped w/ cross body strap; use of countertops to transport items via sliding. ( +) 1-handed buttoning noted w/ R hand. Sleeps on R side since having stroke. completes meal prep in home. He presents ambulating w/ SPC (he progressed from manual w/c --> hemiwalker --> SPC). He has received home health PT and is currently being seen in the outpatient clinic at [facility] by PT. AFO has been rec by PT; he presented without AFO. He was reportedly previously seen by speech and discharged d/t no concerns re : cognition, speech, and/or swallow. He was seen by [facility] OT. He is not using L UE sling and/or distal UE splint. He does have a home e-stim unit; he is actively stretching the L hand/digits into extension to maintain available range of motion. - Subjective Identification Type Name Observations Kari indicated that he had a PT visit immediately following OT visit. *Monitor for pain w/ R sh abd. Patient Expectation/Goals Address L UE function Patient/Caregiver Compliance with Home Good Exercise Program - Objective Objective Measurements Please refer to below for progress towards meeting established OT goals: Short Term Goals 1. Kari will present with improved active range of motion of the left upper extremity, this will be evidenced by the followina. 35 degrees active L shoulder flexion. 1b. 45 degrees active L shoulder abduction. 1c. 10 degrees active L elbow extension. 2. Kari will present with improved functional abilities; this will be evidenced by ability to verbalize and/or demonstrate use of 2 to 3 different AE/ modification/compensatory strategies in the home. Usp Goals 1. Kari will be modified independent with execution of home exercise program utilizing provided written and visual instructions from therapist as needed. - Exercises 3 Descriptor Tone management/functional weight bearing. EOM. Trunk flexion. 1 x 10. Use of dycem. EOM. Upright sitting. L <-> R weight shift. 1 x 10. 2 Descriptor Seated UE exercises. L sh elevation. 1 x 5. N/A 03/15/23 Use of TT. 1 x 10. Rec addition of pillow vs fleece blanket vs additional alternatives given sensitivities of skin. 1 Descriptor Supine UE exercises. Sh ext. 3 x 10. Min phys assist to facilitate. 1 x 10 focus on controlled descent. CGA to min phys assist. Sh ext w/ handle. 2 x 10. TB #1. CGA to min phys assist. Sh abd. 3 x 10. Min phys assist to facilitate to 90 degrees sh abd. Elbow flex. Active ROM. 3 x 10 . Clinician positioning of elbow in approx 80 degrees elbow flex -> then actively completed thru rest of ROM. Sh add. 2 x 10. Sh medium-sized circles. 1 x 10 in both directions. CGA to min phys assist to support motor control at sh level. PNF diagonal. 2 x 10. L hip -> R shoulder. Min phys assist to facilitate. Passive ER by clinician. 2 x 10. Wrist extension. Muscle tapping to facilitate. Elbow in 90 degrees flexion. 2 x 10. Sh add/hor abd. Limited range of motion w/ abd. 2 x 10. - Assessment Assessment of Improvement Advanced L UE therapeutic exercises being completed in treatment session. Intermittent active extension of all digits w/ wrist in fairly neutral position w/ execution of supine exercises noted. Working on coordinating breath with motor planning/ executing exercises w/ the L UE in supine, as well as discouraging neck flexion. Rec revisiting handle w/ UE strengthening exercises. Overall, good session. Outpatient OT is recommended to address L UE function, including but not limited to active range of motion, tone management, motor planning, awareness of L UE in space, education re: AE/modification/ compensatory strategies to support functional abilities. Home Exercise Program 03/17/23 = Rec completion of UE tone management exercises daily; passively stretching L UE out of typical jessica pattern daily (which would include daily execution of modified ER stretch supine, for 20 to 30+ sec, 2-3 repetitions based on response in today's session, w/ use of pillow support for L elbow w/ support of family member, and possible use of heat for 5-10 minutes as tolerated/w/ temperature skin being monitored given change in UE sensation). 03/09/23 = Motor planning sh add; rec use of TT 3 x 10 every other day or 3 x a week. - Plan Therapy Recommendations Continue with Current Program, Advance per Rehabilitation Protocol
--- NOTE | 2023-03-30 15:53 | OT.OP.TRT ---
Visit Care Team Role Provider Type Kristian Kim MD Attending Provider Physician Family Provider Primary Care Provider Referring Provider Specialty: Family Practice Address: [address] [place] [address], [employer] Email: [email or web address] Occupational Therapy Treatment Note OT Outpatient Treatment Note - Adult Start: 03/02/23 09:26 Freq: Status: Active Protocol: Document 03/30/23 15:39 AMS (Rec: 03/30/23 15:53 AMS [id number]) OT Outpatient Adult Treatment Note Session Time Visit Start Time 13:30 Visit Stop Time 14:20 Total Visit Minutes 50 Visit Information Visit Number 08/18; 08/27 --> visit KX modifier Plan of Care Dates 03/01/23 - 05/24/23 Insurance Information Medicare Setting Treatment Setting Outpatient Care Visit Type Note Type Treatment Note General Information General Information Kari is a 67 year-old R hand dominant male referred to outpatient OT by PCP d/t L UE weakness secondary to stroke that occurred in June of 2022 . Medical history: Blood pressure, CHF, h/o falls, h/o R rotator cuff tear. Kari reported that he resides w/ his and son (Santana) who are available to assist him; they reside in a 4-story home (w/ bedroom and bath on 3rd floor of home) and he is retired. He has modified a brief case to assist w/ transporting of items which is equipped w/ cross body strap; use of countertops to transport items via sliding. ( +) 1-handed buttoning noted w/ R hand. Sleeps on R side since having stroke. completes meal prep in home. He presents ambulating w/ SPC (he progressed from manual w/c --> hemiwalker --> SPC). He has received home health PT and is currently being seen in the outpatient clinic at [facility] by PT. AFO has been rec by PT; he presented without AFO. He was reportedly previously seen by speech and discharged d/t no concerns re : cognition, speech, and/or swallow. He was seen by [facility] OT. He is not using L UE sling and/or distal UE splint. He does have a home e-stim unit; he is actively stretching the L hand/digits into extension to maintain available range of motion. - Subjective Identification Type Name Observations Report of getting up 1+ per hour (and moving about). (-) use of L AFO/L orthotic to assist with gait; rec consulting w/ PT. (+) use of SPC w/ elongated base to reportedly assist w/ weight shift w/ gait. *Monitor for pain w/ R sh abd. Patient Expectation/Goals Address L UE function Patient/Caregiver Compliance with Home Good Exercise Program - Objective Objective Measurements Please refer to below for progress towards meeting established OT goals: Short Term Goals 1. Kari will present with improved active range of motion of the left upper extremity, this will be evidenced by the followina. 35 degrees active L shoulder flexion. 1b. 45 degrees active L shoulder abduction. 1c. 10 degrees active L elbow extension. 2. Kari will present with improved functional abilities; this will be evidenced by ability to verbalize and/or demonstrate use of 2 to 3 different AE/ modification/compensatory strategies in the home. Fdc Goals 1. Kari will be modified independent with execution of home exercise program utilizing provided written and visual instructions from therapist as needed. - Exercises 3 Descriptor Tone management/functional weight bearing. EOM. Trunk flexion. 1 x 10. Use of dycem. EOM. Upright sitting. L <-> R weight shift. 1 x 10. 2 Descriptor Seated UE exercises. L sh elevation. 1 x 5. N/A 03/15/23 Use of TT. 1 x 10. Rec addition of pillow vs fleece blanket vs additional alternatives given sensitivities of skin. 1 Descriptor Supine UE exercises. Sh ext. 3 x 10. Min phys assist to facilitate. 1 x 10 focus on controlled descent. CGA to min phys assist. Sh ext w/ handle. 2 x 10. TB #1. CGA to min phys assist. Sh abd. 3 x 10. Min phys assist to facilitate to 90 degrees sh abd. Elbow flex. 3 x 10. Clinician assisting 90 - 110+ degrees to obtain full elbow ext; assist to obtain initial elbow ext. Sh medium-sized circles. 1 x 10 in both directions. CGA to min phys assist to support motor control at level. PNF diagonal. 2 x 10. L hip -> R shoulder. Max phys assist. Passive ER by clinician. 2 x 10. Passive hor abd/ER by clinician. 2 x 10. Wrist extension. Muscle tapping to facilitate. Elbow in 90 degrees flexion. 2 x 10. Sh add/hor abd. Limited range of motion w/ abd. 2 x 10. - Assessment Assessment of Improvement Continue to work on coordination of breath with motor planning/execution of L UE exercises in supine; however, improved coordination of breath compared to previous treatment sessions. Improved resting of head/ ability to dissociate L UE ROM exercises in supine in today' s session (decreased raising of head w/ neck flexion). Improved L active elbow flexion in supine; continues to need assist w/ elbow ext. Cont to do well w/ maintaining elbow in ext w/ sh ext exercise in supine/modified PNF diagonal R hip -> outside of L body of space. Frustration expressed vs inability to play pickleball in standing. Overall, good session. Outpatient OT is recommended to address L UE function, including but not limited to active range of motion, tone management, motor planning, awareness of L UE in space, education re: AE/modification/ compensatory strategies to support functional abilities. Home Exercise Program 03/17/23 = Rec completion of UE tone management exercises daily; passively stretching L UE out of typical jessica pattern daily (which would include daily execution of modified ER stretch supine, for 20 to 30+ sec, 2-3 repetitions based on response in today's session, w/ use of pillow support for L elbow w/ support of family member, and possible use of heat for 5-10 minutes as tolerated/w/ temperature skin being monitored given change in UE sensation). 03/09/23 = Motor planning sh add; rec use of TT 3 x 10 every other day or 3 x a week. - Plan Therapy Recommendations Continue with Current Program, Advance per Rehabilitation Protocol
--- NOTE | 2023-04-07 14:20 | OT.OP.TRT ---
Visit Care Team Role Provider Type Kristian Kim MD Attending Provider Physician Family Provider Primary Care Provider Referring Provider Specialty: Family Practice Address: [address] [place] [address], [facility] Email: [email or web address] Occupational Therapy Treatment Note OT Outpatient Treatment Note - Adult Start: 03/02/23 09:26 Freq: Status: Active Protocol: Document 04/07/23 14:03 AMS (Rec: 04/07/23 14:20 AMS [id number]) OT Outpatient Adult Treatment Note Session Time Visit Start Time 10:30 Visit Stop Time 11:25 Total Visit Minutes 55 Visit Information Visit Number 09/18; 09/27 --> visit KX modifier Plan of Care Dates 03/01/23 - 05/24/23 Insurance Information Medicare Setting Treatment Setting Outpatient Care Visit Type Note Type Treatment Note General Information General Information Kari is a 67 year-old R hand dominant male referred to outpatient OT by PCP d/t L UE weakness secondary to stroke that occurred in June of 2022 . Medical history: Blood pressure, CHF, h/o falls, h/o R rotator cuff tear. Kari reported that he resides w/ his and son (Santana) who are available to assist him; they reside in a 4-story home (w/ bedroom and bath on 3rd floor of home) and he is retired. He has modified a brief case to assist w/ transporting of items which is equipped w/ cross body strap; use of countertops to transport items via sliding. ( +) 1-handed buttoning noted w/ R hand. Sleeps on R side since having stroke. completes meal prep in home. He presents ambulating w/ SPC (he progressed from manual w/c --> hemiwalker --> SPC). He has received home health PT and is currently being seen in the outpatient clinic at [facility] by PT. AFO has been rec by PT; he presented without AFO. He was reportedly previously seen by speech and discharged d/t no concerns re : cognition, speech, and/or swallow. He was seen by [facility] OT. He is not using L UE sling and/or distal UE splint. He does have a home e-stim unit; he is actively stretching the L hand/digits into extension to maintain available range of motion. - Subjective Identification Type Name Observations (+) use of SPC w/ elongated base. *Monitor for pain w/ R sh abd. Patient Expectation/Goals Address L UE function Patient/Caregiver Compliance with Home Good Exercise Program - Objective Objective Measurements Please refer to below for progress towards meeting established OT goals: Short Term Goals 1. Kari will present with improved active range of motion of the left upper extremity, this will be evidenced by the followina. 0-35 degrees active L shoulder flexion. 1b. 0-45 degrees active L shoulder abduction. 1c. 0-10 degrees active L elbow extension. 2. Kari will present with improved functional abilities; 1a. This will be evidenced by Kari's ability to verbalize and/or demonstrate use of 2 to 3 different AE/modification /compensatory strategies in the home. 04/07/23 = Provision of square of dycem Pointer Helper Goals 1. Kari will be modified independent with execution of home exercise program utilizing provided written and visual instructions from therapist as needed. - Exercises 5 Descriptor Tone management/UE neuro retraining. x 5 minutes. Use of horizontal bar. Dycem assist for L hand grasp. Max phys assist for grasping of bar and to release bar. L <-> R weight shift. 1 x 10. Pulling self forward, elbow flex. 1 x 10. Ext ext, leaning slightly backwards. 1 x 10. 4 Descriptor UEB. x 12 minutes forwards direction. Height approx level 2. Seated. Physical assist to facilitate L elbow ext to support maintenance of grasp. Required phys assist x 3 occasions to re-adjust engineer of system development despite facilitation of elbow ext. 3 Descriptor Tone management/functional weight bearing. Tone management/weight shift at wall. Max phys assist for positioning of L hand on wall; min phys assist to facilitate elbow ext. N/A 04/07/23 EOM. Trunk flexion. 1 x 10. Use of dycem. EOM. Upright sitting. L <-> R weight shift. 1 x 10. 2 Descriptor Seated UE exercises. L sh elevation. 1 x 5. N/A 03/15/23 Use of TT. 1 x 10. Rec addition of pillow vs fleece blanket vs additional alternatives given sensitivities of skin. 1 Descriptor Supine UE exercises. Sh flex. 1 x 10 passive. 2 x 10. Min phys assist to facilitate. Sh abd. 2 x 10. Min phys assist to facilitate to 90 degrees sh abd. Passive ER by clinician. 2 x 10. Passive hor abd/ER by clinician. 2 x 10. Wrist extension. Muscle tapping to facilitate. Elbow in 90 degrees flexion. 2 x 10. N/A 04/07/23 Sh ext. 3 x 10. Min phys assist to facilitate. 1 x 10 focus on controlled descent. CGA to min phys assist. Sh ext w/ handle. 2 x 10. TB #1. CGA to min phys assist. Elbow flex. 3 x 10. Clinician assisting 90 - 110+ degrees to obtain full elbow ext; assist to obtain initial elbow ext. Sh medium-sized circles. 1 x 10 in both directions. CGA to min phys assist to support motor control at level. PNF diagonal. 2 x 10. L hip -> R shoulder. Max phys assist. Sh add/hor abd. Limited range of motion w/ abd. 2 x 10. - Assessment Assessment of Improvement Continue to work on coordination of breath with motor planning/execution of L UE exercises in supine; improved resting of head/ ability to dissociate L UE ROM exercises in supine. Trialed UEB w/ good success w/ assist to facilitate elbow ext to support overall, maintenance of L handed grasp; alt option is to use velcro mitt for grasp. Trialed alt weight bearing activities in standing in today's session; (+) response to use of horizontal bar addressing weight shifting L <-> R, L grasp, elbow flex/ ext in more neutral position w / assist of dycem. Overall, good session. Outpatient OT is recommended to address L UE function, including but not limited to active range of motion, tone management, motor planning, awareness of L UE in space, education re: AE/modification/ compensatory strategies to support functional abilities. Home Exercise Program 04/07/23 = Provided with square of dycem for home use to assist w/ L handed grasp or other functional activities ( as identified). Instructed in use of horizontal bar for weight bearing/tone management , motor re-training/grasp; Kari to identify alt option in the home to support carry- over. 03/17/23 = Rec completion of UE tone management exercises daily; passively stretching L UE out of typical jessica pattern daily (which would include daily execution of modified ER stretch supine, for 20 to 30+ sec, 2-3 repetitions based on response in today's session, w/ use of pillow support for L elbow w/ support of family member, and possible use of heat for 5-10 minutes as tolerated/w/ temperature skin being monitored given change in UE sensation). 03/09/23 = Motor planning sh add; rec use of TT 3 x 10 every other day or 3 x a week. - Plan Therapy Recommendations Continue with Current Program, Advance per Rehabilitation Protocol
--- NOTE | 2023-04-15 15:39 | OT.OP.TRT ---
Visit Care Team Role Provider Type Kristian Kim MD Attending Provider Physician Family Provider Primary Care Provider Referring Provider Specialty: Family Practice Address: [address] [place] [address], [facility] Email: [email or web address] Occupational Therapy Treatment Note OT Outpatient Treatment Note - Adult Start: 03/02/23 09:26 Freq: Status: Active Protocol: Document 04/15/23 15:31 AMS (Rec: 04/15/23 15:38 AMS [id number]) OT Outpatient Adult Treatment Note Session Time Visit Start Time 13:45 Visit Stop Time 14:30 Total Visit Minutes 45 Visit Information Visit Number 10/18; 04/29 --> visit KX modifier Plan of Care Dates 03/01/23 - 05/24/23 Insurance Information Medicare Setting Treatment Setting Outpatient Care Visit Type Note Type Treatment Note General Information General Information Kari is a 67 year-old R hand dominant male referred to outpatient OT by PCP d/t L UE weakness secondary to stroke that occurred in June of 2022 . Medical history: Blood pressure, CHF, h/o falls, h/o R rotator cuff tear. Kari reported that he resides w/ his and son (Santana) who are available to assist him; they reside in a 4-story home (w/ bedroom and bath on 3rd floor of home) and he is retired. He has modified a brief case to assist w/ transporting of items which is equipped w/ cross body strap; use of countertops to transport items via sliding. ( +) 1-handed buttoning noted w/ R hand. Sleeps on R side since having stroke. completes meal prep in home. He presents ambulating w/ SPC (he progressed from manual w/c --> hemiwalker --> SPC). He has received home health PT and is currently being seen in the outpatient clinic at [facility] by PT. AFO has been rec by PT; he presented without AFO. He was reportedly previously seen by speech and discharged d/t no concerns re : cognition, speech, and/or swallow. He was seen by [facility] OT. He is not using L UE sling and/or distal UE splint. He does have a home e-stim unit; he is actively stretching the L hand/digits into extension to maintain available range of motion. - Subjective Identification Type Name Observations (+) use of SPC w/ elongated base w/ gait; PT indicated that they are working on posture/standing up tall as well as backwards ambulation. *Monitor for pain w/ R sh abd. Patient Expectation/Goals Address L UE function Patient/Caregiver Compliance with Home Good Exercise Program - Objective Objective Measurements Please refer to below for progress towards meeting established OT goals: Short Term Goals 1. Kari will present with improved active range of motion of the left upper extremity, this will be evidenced by the followina. 0-35 degrees active L shoulder flexion. 1b. 0-45 degrees active L shoulder abduction. 1c. 0-10 degrees active L elbow extension. 2. Kari will present with improved functional abilities; 1a. This will be evidenced by Kari's ability to verbalize and/or demonstrate use of 2 to 3 different AE/modification /compensatory strategies in the home. 04/07/23 = Provision of square of dycem Feed Preparation Operator Goals 1. Kari will be modified independent with execution of home exercise program utilizing provided written and visual instructions from therapist as needed. - Exercises 5 Descriptor Tone management/UE neuro retraining. Use of horizontal bar. Dycem assist for L hand grasp. Max phys assist for grasping of bar and to release bar. L <-> R weight shift. 2 x 10. Min phys assist to facilitate elbow ext. Elbow ext, leaning slightly backwards and pulling self forwards. 2 x 10. Elbow ext, focus on pulsing grasp. 2 x 10. Positioning of both hands on horizontal bar, hands shoulder width apart. Pulling up into standing <-> maintaining grasp w/ sitting/standing. 1 x 10. Modified dip w/ use of bar L UE. 3 x 10. 4 Descriptor UEB. x 10 minutes forwards direction. Height approx level 2. x 5 min R UE assist; x 5 min therapist assist w/ pushing component L UE and maintaining L wrist ext. Seated. Physical assist to facilitate L elbow wrist ext. 3 Descriptor Tone management/functional weight bearing. Tone management/weight shift at wall. Max phys assist for positioning of L hand on wall; min phys assist to facilitate elbow ext. N/A 04/07/23 EOM. Trunk flexion. 1 x 10. Use of dycem. EOM. Upright sitting. L <-> R weight shift. 1 x 10. 1 Descriptor Supine UE exercises. Sh flex. 1 x 10 passive. 2 x 10. Min phys assist to facilitate. Sh abd. 2 x 10. Min phys assist to facilitate to 90 degrees sh abd. Passive ER by clinician. 2 x 10. Passive hor abd/ER by clinician. 2 x 10. Wrist extension. Muscle tapping to facilitate. Elbow in 90 degrees flexion. 2 x 10. N/A 04/07/23 Sh ext. 3 x 10. Min phys assist to facilitate. 1 x 10 focus on controlled descent. CGA to min phys assist. Sh ext w/ handle. 2 x 10. TB #1. CGA to min phys assist. Elbow flex. 3 x 10. Clinician assisting 90 - 110+ degrees to obtain full elbow ext; assist to obtain initial elbow ext. Sh medium-sized circles. 1 x 10 in both directions. CGA to min phys assist to support motor control at sh level. PNF diagonal. 2 x 10. L hip -> R shoulder. Max phys assist. Sh add/hor abd. Limited range of motion w/ abd. 2 x 10. - Assessment Assessment of Improvement Revisited UEB w/ focus on L UE actively participating vs reliance on R UE; Kari indicated that he primarily has difficulty w/ pushing UEB vs pulling; consider use of velcro mitt for L handed grasp . Introduced additional exercises w/ use of horizontal grab bar w/ dycem. Overall, good session. Outpatient OT is recommended to address L UE function, including but not limited to active range of motion, tone management, motor planning, awareness of L UE in space, education re: AE/modification/ compensatory strategies to support functional abilities. Home Exercise Program 04/07/23 = Provided with square of dycem for home use to assist w/ L handed grasp or other functional activities ( as identified). Instructed in use of horizontal bar for weight bearing/tone management , motor re-training/grasp; Kari to identify alt option in the home to support carry- over. 03/17/23 = Rec completion of UE tone management exercises daily; passively stretching L UE out of typical jessica pattern daily (which would include daily execution of modified ER stretch supine, for 20 to 30+ sec, 2-3 repetitions based on response in today's session, w/ use of pillow support for L elbow w/ support of family member, and possible use of heat for 5-10 minutes as tolerated/w/ temperature skin being monitored given change in UE sensation). 03/09/23 = Motor planning sh add; rec use of TT 3 x 10 every other day or 3 x a week. - Plan Therapy Recommendations Continue with Current Program, Advance per Rehabilitation Protocol
--- NOTE | 2023-04-21 15:53 | OT.OP.TRT ---
Visit Care Team Role Provider Type Kristian Kim MD Attending Provider Physician Family Provider Primary Care Provider Referring Provider Specialty: Family Practice Address: [address] [place] [address], [facility] Email: [email or web address] Occupational Therapy Treatment Note OT Outpatient Treatment Note - Adult Start: 03/02/23 09:26 Freq: Status: Active Protocol: Document 04/21/23 15:42 AMS (Rec: 04/21/23 15:53 AMS [id number]) OT Outpatient Adult Treatment Note Session Time Visit Start Time 13:50 Visit Stop Time 14:32 Total Visit Minutes 42 Visit Information Visit Number 11/18; 05/30 --> visit KX modifier Plan of Care Dates 03/01/23 - 05/24/23 Insurance Information Medicare Setting Treatment Setting Outpatient Care Visit Type Note Type Treatment Note General Information General Information Kari is a 67 year-old R hand dominant male referred to outpatient OT by PCP d/t L UE weakness secondary to stroke that occurred in June of 2022 . Medical history: Blood pressure, CHF, h/o falls, h/o R rotator cuff tear. Kari reported that he resides w/ his and son (Santana) who are available to assist him; they reside in a 4-story home (w/ bedroom and bath on 3rd floor of home) and he is retired. He has modified a brief case to assist w/ transporting of items which is equipped w/ cross body strap; use of countertops to transport items via sliding. ( +) 1-handed buttoning noted w/ R hand. Sleeps on R side since having stroke. completes meal prep in home. He presents ambulating w/ SPC (he progressed from manual w/c --> hemiwalker --> SPC). He has received home health PT and is currently being seen in the outpatient clinic at [facility] by PT. AFO has been rec by PT; he presented without AFO. He was reportedly previously seen by speech and discharged d/t no concerns re : cognition, speech, and/or swallow. He was seen by [facility] OT. He is not using L UE sling and/or distal UE splint. He does have a home e-stim unit; he is actively stretching the L hand/digits into extension to maintain available range of motion. - Subjective Identification Type Name Observations (+) use of SPC w/ elongated base w/ gait. Outpatient PT appointment following OT appointment. Report of obtaining a new TENS/e-stim unit for the home; had been previously trained by HH OT w/ 1st recommended unit. *Monitor for pain w/ R sh abd. Patient Expectation/Goals Address L UE function Patient/Caregiver Compliance with Home Good Exercise Program - Objective Objective Measurements Please refer to below for progress towards meeting established OT goals: Short Term Goals 1. Kari will present with improved active range of motion of the left upper extremity, this will be evidenced by the followina. 0-35 degrees active L shoulder flexion. 1b. 0-45 degrees active L shoulder abduction. 1c. 0-10 degrees active L elbow extension. 2. Kari will present with improved functional abilities; 1a. This will be evidenced by Kari's ability to verbalize and/or demonstrate use of 2 to 3 different AE/modification /compensatory strategies in the home. 04/07/23 = Provision of square of dycem Chcf Goals 1. Kari will be modified independent with execution of home exercise program utilizing provided written and visual instructions from therapist as needed. - Treatment 1 Descriptor [place] e-stim. 10/10 cycle. Facilitation of L elbow extension in supine. Intensity 47. Skin intact pre- and post - treatment. Variable muscle response to protocol noted. Exercises 5 Descriptor Tone management/UE neuro retraining. Use of horizontal bar. Dycem assist for L hand grasp. Max phys assist to grasping horizontal bar and release horizontal bar. L <-> R weight shift. 2 x 10. Min phys assist to facilitate elbow ext. Elbow ext, leaning slightly backwards and pulling self forwards. 2 x 10. Sh flex, combined w/ elbow ext , forearm pronation and wrist in slight extension. Pulsing grasp (50% of force of carton folder). 2 x 10. Completed sitting. Positioning of both hands on horizontal bar, hands shoulder width apart. Pulling up into standing <-> maintaining grasp w/ sitting/standing B UEs. 1 x 7. Positioning of both hands on horizontal bar, hands shoulder width apart, pulling up into standing B hands, returning to sitting w/ L UE/L hand positioned on bar only. 1 x 5. Modified dip w/ use of bar L UE. x 10 minutes. Use of e- stim. 4 Descriptor UEB. x 5 minutes forwards direction. Height approx level 2. Seated. Physical assist to facilitate L elbow wrist ext. 3 Descriptor Tone management/functional weight bearing. Tone management/weight shift at wall. Max phys assist for positioning of L hand on wall; min phys assist to facilitate elbow ext. N/A 04/07/23 EOM. Trunk flexion. 1 x 10. Use of dycem. EOM. Upright sitting. L <-> R weight shift. 1 x 10. 2 Descriptor Seated UE exercises. L sh elevation. 1 x 5. N/A 03/15/23 Use of TT. 1 x 10. Rec addition of pillow vs fleece blanket vs additional alternatives given sensitivities of skin. 1 Descriptor Supine UE exercises. Sh flex. 1 x 10 passive. 2 x 10. Min phys assist to facilitate. Sh abd. 2 x 10. Min phys assist to facilitate to 90 degrees sh abd. Passive ER by clinician. 2 x 10. Passive hor abd/ER by clinician. 2 x 10. Wrist extension. Muscle tapping to facilitate. Elbow in 90 degrees flexion. 2 x 10. N/A 04/07/23 Sh ext. 3 x 10. Min phys assist to facilitate. 1 x 10 focus on controlled descent. CGA to min phys assist. Sh ext w/ handle. 2 x 10. TB #1. CGA to min phys assist. Elbow flex. 3 x 10. Clinician assisting 90 - 110+ degrees to obtain full elbow ext; assist to obtain initial elbow ext. Sh medium-sized circles. 1 x 10 in both directions. CGA to min phys assist to support motor control at sh level. PNF diagonal. 2 x 10. L hip -> R shoulder. Max phys assist. Sh add/hor abd. Limited range of motion w/ abd. 2 x 10. - Assessment Assessment of Improvement Has personal e-stim unit at home previously trained in by PT. Trialed e-stim w/ facilitation of elbow extension w/ use of horizontal bar; modified dips/ maintaining elbow ext and weight bearing. (+) need to use both hands to transition into standing w/ horizontal bar; varied control w/ descent w/ L UE assist only ( intermittent success w/ maintaining L handed grasp on horizontal bar). Tendency into typical L UE jessica pattern w/ sh flexion. Overall, good session. Outpatient OT is recommended to address L UE function, including but not limited to active range of motion, tone management, motor planning, awareness of L UE in space, education re: AE/modification/ compensatory strategies to support functional abilities. Home Exercise Program 04/07/23 = Provided with square of dycem for home use to assist w/ L handed grasp or other functional activities ( as identified). Instructed in use of horizontal bar for weight bearing/tone management , motor re-training/grasp; Kari to identify alt option in the home to support carry- over. 03/17/23 = Rec completion of UE tone management exercises daily; passively stretching L UE out of typical jessica pattern daily (which would include daily execution of modified ER stretch supine, for 20 to 30+ sec, 2-3 repetitions based on response in today's session, w/ use of pillow support for L elbow w/ support of family member, and possible use of heat for 5-10 minutes as tolerated/w/ temperature skin being monitored given change in UE sensation). 03/09/23 = Motor planning sh add; rec use of TT 3 x 10 every other day or 3 x a week. - Plan Therapy Recommendations Continue with Current Program, Advance per Rehabilitation Protocol
--- NOTE | 2023-04-26 11:50 | OT.OP.TRT ---
Visit Care Team Role Provider Type Kristian Kim MD Attending Provider Physician Family Provider Primary Care Provider Referring Provider Specialty: Family Practice Address: [address] [place] [address], [facility] Email: [email or web address] Occupational Therapy Treatment Note OT Outpatient Treatment Note - Adult Start: 03/02/23 09:26 Freq: Status: Active Protocol: Document 04/26/23 11:36 AMS (Rec: 04/26/23 11:50 AMS [id number]) OT Outpatient Adult Treatment Note Session Time Visit Start Time 09:45 Visit Stop Time 10:30 Total Visit Minutes 45 Visit Information Visit Number 12/19; 06/27 --> visit KX modifier Plan of Care Dates 03/01/23 - 05/24/23 Insurance Information Medicare Setting Treatment Setting Outpatient Care Visit Type Note Type Treatment Note General Information General Information aKri is a 67 year-old R hand dominant male referred to outpatient OT by PCP d/t L UE weakness secondary to stroke that occurred in June of 2022 . Medical history: Blood pressure, CHF, h/o falls, h/o R rotator cuff tear. Kari reported that he resides w/ his and son (Santana) who are available to assist him; they reside in a 4-story home (w/ bedroom and bath on 3rd floor of home) and he is retired. He has modified a brief case to assist w/ transporting of items which is equipped w/ cross body strap; use of countertops to transport items via sliding. ( +) 1-handed buttoning noted w/ R hand. Sleeps on R side since having stroke. completes meal prep in home. He presents ambulating w/ SPC (he progressed from manual w/c --> hemiwalker --> SPC). He has received home health PT and is currently being seen in the outpatient clinic at [facility] by PT. AFO has been rec by PT; he presented without AFO. He was reportedly previously seen by speech and discharged d/t no concerns re : cognition, speech, and/or swallow. He was seen by [facility] OT. He is not using L UE sling and/or distal UE splint. He does have a home e-stim unit; he is actively stretching the L hand/digits into extension to maintain available range of motion. - Subjective Identification Type Name Observations (+) use of SPC w/ elongated base w/ gait. Outpatient PT appointment following OT appointment. *Monitor for pain w/ R sh abd. Patient Expectation/Goals Address L UE function Patient/Caregiver Compliance with Home Good Exercise Program - Objective Objective Measurements Please refer to below for progress towards meeting established OT goals: Short Term Goals 1. Kari will present with improved active range of motion of the left upper extremity, this will be evidenced by the followina. 0-35 degrees active L shoulder flexion. 1b. 0-45 degrees active L shoulder abduction. 1c. 0-10 degrees active L elbow extension. 2. Kari will present with improved functional abilities; 1a. This will be evidenced by Kari's ability to verbalize and/or demonstrate use of 2 to 3 different AE/modification /compensatory strategies in the home. 04/07/23 = Provision of nolan of dyjosselyn [employer] Goals 1. Kari will be modified independent with execution of home exercise program utilizing provided written and visual instructions from therapist as needed. - Treatment 1 Descriptor German e-stim. 10 cycle. Facilitation of L elbow extension in supine. Intensity 47. Skin intact pre- and post - treatment. Variable muscle response to protocol noted. Exercises 9 Descriptor L UE motor planning. L sh hor abd. Use of mat. Assist to facilitate elbow ext . 2 x 10. 8 Descriptor Seated cane exercises. B seated row. 2 x 10. Elbow flex/ext. forearm pronation. 2 x 10. Elbow flex/ext. forearm supination. 2 x 10. Sh hor abd/add. 2 x 10. 7 Descriptor L UE ROM. Arm pulleys. Hor abd w/ ER. Seated. Use of raised mat. Phys assist to position UE. Self-controlled stretch. 6 Descriptor Arm Pulleys. Seated. x 10 minutes. *Rec use of ball to support posture; given trunk ext/posterior pelvic tilt w/ chair used. x 5 minutes sh flex. CGA to min phys assist to help maintain grasp. x 3 minutes. sh abd. Min to max phys assist to support motor planning/maintenance of grasp. Forearm pronation. x 2 minutes. sh abd. Mod to max phys assist to support motor planning/maintenance of grasp. Thumb up towards ceiling. 5 Descriptor Tone management/UE neuro retraining. Use of horizontal bar. Dycem assist for L hand grasp. Max phys assist to grasping horizontal bar and release horizontal bar. L <-> R weight shift. 2 x 10. Min phys assist to facilitate elbow ext. Elbow ext, leaning slightly backwards and pulling self forwards. 2 x 10. Sh flex, combined w/ elbow ext , forearm pronation and wrist in slight extension. Pulsing grasp (50% of force of construction services technician). 2 x 10. Completed sitting. Positioning of both hands on horizontal bar, hands shoulder width apart. Pulling up into standing <-> maintaining grasp w/ sitting/standing B UEs. 1 x 7. Positioning of both hands on horizontal bar, hands shoulder width apart, pulling up into standing B hands, returning to sitting w/ L UE/L hand positioned on bar only. 1 x 5. Modified dip w/ use of bar L UE. x 10 minutes. Use of e- stim. 4 Descriptor UEB. x 5 minutes forwards direction. Height approx level 2. Seated. Physical assist to facilitate L elbow wrist ext. 3 Descriptor Tone management/functional weight bearing. Tone management/weight shift at wall. Max phys assist for positioning of L hand on wall; min phys assist to facilitate elbow ext. N/A 04/07/23 EOM. Trunk flexion. 1 x 10. Use of dycem. EOM. Upright sitting. L <-> R weight shift. 1 x 10. 2 Descriptor Seated UE exercises. L sh elevation. 1 x 5. N/A 03/15/23 Use of TT. 1 x 10. Rec addition of pillow vs fleece blanket vs additional alternatives given sensitivities of skin. 1 Descriptor Supine UE exercises. Sh flex. 1 x 10 passive. 2 x 10. Min phys assist to facilitate. Sh abd. 2 x 10. Min phys assist to facilitate to 90 degrees sh abd. Passive ER by clinician. 2 x 10. Passive hor abd/ER by clinician. 2 x 10. Wrist extension. Muscle tapping to facilitate. Elbow in 90 degrees flexion. 2 x 10. N/A 04/07/23 Sh ext. 3 x 10. Min phys assist to facilitate. 1 x 10 focus on controlled descent. CGA to min phys assist. Sh ext w/ handle. 2 x 10. TB #1. CGA to min phys assist. Elbow flex. 3 x 10. Clinician assisting 90 - 110+ degrees to obtain full elbow ext; assist to obtain initial elbow ext. Sh medium-sized circles. 1 x 10 in both directions. CGA to min phys assist to support motor control at level. PNF diagonal. 2 x 10. L hip -> R shoulder. Max phys assist. Sh add/hor abd. Limited range of motion w/ abd. 2 x 10. - Assessment Assessment of Improvement (+) response to arm pulleys; good ROM exercise at start of treatment session. Did not complete horizontal grab bar exercises given site of injury of volar/lateral surface of L thumb (and wanting to avoid shearing force to skin). Tendency into typical L UE jessica pattern w/ L UE motor planning; use of cane to discourage typical jessica pattern movement and R UE support for motor planning. Use of ball to support posture in sitting w/ hor abd motor planning; rec for use w/ arm pulleys as needed. Overall, good session. Outpatient OT is recommended to address L UE function, including but not limited to active range of motion, tone management, motor planning, awareness of L UE in space, education re: AE/modification/ compensatory strategies to support functional abilities. Home Exercise Program 04/26/23 = Discussed potential use of arm pulleys for home use; instructed in passive hor abd/ER stretch w/ use of TT w / trunk flex. Rec 2-3 times w/ hold of 20 - 30 sec+. 04/07/23 = Provided with square of dycem for home use to assist w/ L handed grasp or other functional activities ( as identified). Instructed in use of horizontal bar for weight bearing/tone management , motor re-training/grasp; Kari to identify alt option in the home to support carry- over. 03/17/23 = Rec completion of UE tone management exercises daily; passively stretching L UE out of typical jessica pattern daily (which would include daily execution of modified ER stretch supine, for 20 to 30+ sec, 2-3 repetitions based on response in today's session, w/ use of pillow support for L elbow w/ support of family member, and possible use of heat for 5-10 minutes as tolerated/w/ temperature skin being monitored given change in UE sensation). 03/09/23 = Motor planning sh add; rec use of TT 3 x 10 every other day or 3 x a week. - Plan Therapy Recommendations Continue with Current Program, Advance per Rehabilitation Protocol
--- NOTE | 2023-05-04 16:00 | OT.OPPOC ---
Physical, Occupational & Speech Therapy At [facility] Kari Figueroa I [id number] 1955 Visit Care Team Role Provider Type Kristian Kim MD Attending Provider Physician Family Provider Primary Care Provider Referring Provider Address: [address] [place] [address], [id number] Occupational Therapy Plan of Care OT Outpatient Adult Evaluation Start: 03/02/23 09:26 Freq: Status: Active Protocol: Document 03/01/23 16:00 AMS (Rec: 03/02/23 10:04 AMS [id number]) General Information - Adult Visit Information Visit Number 04/20; 04/29 --> visit KX Modifier Plan of Care Dates 03/01/23 - 05/24/23 Insurance Information Medicare Session Time Visit Start Time 08:45 Visit Stop Time 09:40 Total Visit Minutes 55 Goals Treatment Treatment Tone management/wegiht bearing /weight shifting. Short Term Goals Short Term Goals 1. Kari will present with improved active range of motion of the left upper extremity, this will be evidenced by the followina. 35 degrees active L shoulder flexion. 1b. 45 degrees active L shoulder abduction. 1c. 10 degrees active L elbow extension. 2. Kari will present with improved functional abilities; this will be evidenced by ability to verbalize and/or demonstrate use of 2 to 3 different AE/ modification/compensatory strategies in the home. Director Of Student Financial Aid Goals Skilled Nursing Goals 1. Kari will be modified independent with execution of home exercise program utilizing provided written and visual instructions from therapist as needed. Assessment/Plan Assessment Treatment Assessment Kari is a 67 year-old R hand dominant male referred to outpatient OT by PCP d/t L UE weakness secondary to stroke that occurred in June of 2022 . Medical history: Blood pressure, CHF, h/o falls, h/o R rotator cuff tear. Kari reported that he resides w/ his and son (Santana) who are available to assist him; they reside in a 4-story home (w/ bedroom and bath on 3rd floor of home) and he is retired. He has modified a brief case to assist w/ transporting of items which is equipped w/ cross body strap; use of countertops to transport items via sliding. ( +) 1-handed buttoning noted w/ R hand. Sleeps on R side since having stroke. completes meal prep in home. He presents ambulating w/ SPC (he progressed from manual w/c --> hemiwalker --> SPC). He has received home health PT and is currently being seen in the outpatient clinic at [facility] by PT. AFO has been rec by PT; he presented without AFO. He was reportedly previously seen by speech and discharged d/t no concerns re : cognition, speech, and/or swallow. He was seen by [facility] OT. He is not using L UE sling and/or distal UE splint. He does have a home e-stim unit; he is actively stretching the L hand/digits into extension to maintain available range of motion. Patient Goals: Address L UE function. Pain Assessment Grid completed ; no pain/discomfort indicated . Denial of any changes in sensation of L UE. QuickDASH UE Outcome Measure Score = 20. 45; QuickDASH Sports/ Performing Arts Module Score = 100.00 (hobbies included pickleball, scuba diving, playing the [employer], riding motorcycles). (+) mild L g/h/sh subluxation. (+) active L sh elevation; (+) L scapular retraction noted w/ L sh elevation. Goniometer measurements were completed in sitting; 25 degrees active L sh flexion; 20 degrees active L sh extension; 35 degrees active L sh abd; 95 degrees active L elbow flexion; full active L forearm pronation; (- ) active forearm supination; ( -) active L elbow ext; 25 degrees active L wrist flex; ( -) active L wrist ext; full active L sh IR; (-) active L sh ER. 20.0# of force L nursing manager w / dynamometer II testing w/ elbow in 90 degrees flexion. ( +) flexor tone pattern/typical UE jessica pattern observed w/ active movement. Good weight shifting L <-> R seated at EOM ; able to maintain both feet on floor w/ trunk ext. Outpatient OT is recommended to address L UE function, including but not limited to active range of motion, tone management, motor planning, awareness of L UE in space, education re: AE/modification/ compensatory strategies to support functional abilities. Plan Length of treatment (weeks) 12 Plan of Care Start Date 03/01/23 Plan of Care End Date 05/24/23 Treatment Frequency Once a Week Therapeutic Contents Active Range of Motion, Adaptive Equipment Education, Functional Activities,Home Exercise Program,Joint Protection,Manual Therapy, Education,Neurodevelopment Treatment,Neuromuscular Re- Education,Self-Care,Stretching /Flexibility Activities, Therapeutic Activities, Therapeutic Exercises, Modalities Modalities As Needed,As Prescribed Additional Types of Modalities Heat/Ice/Contrast Baths/ Ultrasound/E-stim Functional Wrist/Hand Scan Hand Side Sensory Assessment Sensory Profile2 OT Outpatient Treatment Note - Adult Start: 03/02/23 09:26 Freq: Status: Active Protocol: Document 05/04/23 16:00 AMS (Rec: 05/05/23 08:59 AMS [id number]) OT Outpatient Adult Treatment Note Session Time Visit Start Time 12:25 Visit Stop Time 13:00 Visit Information Visit Number 04/20; 07/28 --> visit KX modifier Plan of Care Dates 05/04/23 - 07/27/23 Insurance Information Medicare Setting Treatment Setting Outpatient Care Visit Type Note Type Progress Note General Information General Information Kari is a 67 year-old R hand dominant male referred to outpatient OT by PCP d/t L UE weakness secondary to stroke that occurred in June of 2022 . Medical history: Blood pressure, CHF, h/o falls, h/o R rotator cuff tear. Kari reported that he resides w/ his and son (Santana) who are available to assist him; they reside in a 4-story home (w/ bedroom and bath on 3rd floor of home) and he is retired. He has modified a brief case to assist w/ transporting of items which is equipped w/ cross body strap; use of countertops to transport items via sliding. ( +) 1-handed buttoning noted w/ R hand. Sleeps on R side since having stroke. completes meal prep in home. He presents ambulating w/ SPC (he progressed from manual w/c --> hemiwalker --> SPC). He has received home health PT and is currently being seen in the outpatient clinic at [facility] by PT. AFO has been rec by PT; he presented without AFO. He was reportedly previously seen by speech and discharged d/t no concerns re : cognition, speech, and/or swallow. He was seen by [facility] OT. He is not using L UE sling and/or distal UE splint. He does have a home e-stim unit; he is actively stretching the L hand/digits into extension to maintain available range of motion. - Subjective Identification Type Name Observations Continued use of SPC w/ elongated base w/ gait. Report of continued difficulty w/ active elbow ext with L UE motor planning. *Monitor for pain w/ R sh abd. Patient Expectation/Goals Address L UE function Patient/Caregiver Compliance with Home Good Exercise Program - Objective Objective Measurements Please refer to below for progress towards meeting established OT goals: Short Term Goals 1. Kari will present with improved active range of motion of the left upper extremity, this will be evidenced by the followina. 0-35 degrees active L shoulder flexion. 1b. 0-45 degrees active L shoulder abduction. 1c. 0-10 degrees active L elbow extension. 2. Kari will present with improved functional abilities; 1a. This will be evidenced by Kari's ability to verbalize and/or demonstrate use of 2 to 3 different AE/modification /compensatory strategies in the home. 04/07/23 = Provision of square of dyce Director Of Student Financial Aid Goals 1. Kari will be modified independent with execution of home exercise program utilizing provided written and visual instructions from therapist as needed. 05/04/23 = 50% met - Exercises 9 Descriptor L UE motor planning. L sh hor abd. Use of mat. Assist to facilitate elbow ext . 2 x 10. 8 Descriptor Seated cane exercises. B seated row w/ active elbow ext w/ visual end point knees. 2 x 10. Elbow flex/ext. forearm pronation. 2 x 10. B sh flexion. 2 x 10. L ER; min phys assist to maintain nursing manager. 2 x 10. Sh hor abd/add. 2 x 10. L sh abd. 2 x 10. 6 Descriptor Arm Pulleys. Seated. x 10 minutes. *Rec use of ball to support posture; given trunk ext/posterior pelvic tilt w/ chair used. - Assessment Assessment of Improvement Kari has positively responded to arm pulleys, although, he does need assist to facilitate and maintain left elbow extension and maintain L handed grasp of handle and would likely benefit from straight back chair and/or ball to support posture and discourage proximal trunk/core compensatory strategies. Kari has also been instructed in use of horizontal bar, use of dycem, cane/dowel exercises and TT exercises w/ focus on movement of L UE to left body of space ; thus, he has been instructed on a number of different UE exercises to supplement previously instructed on HEP. Exercises have been modified/ changed given injury to volar surface of L thumb that appears to be a blood blister which does lead to discomfort w/ horizontal bar motor planning, tone management exercises. Given today's shortened treatment session, therapist did not obtain L UE range of motion therapeutic exercises. Recommend re- assessing L UE ROM at time of next treatment session. Kari has difficulty moving the L UE out of typical jessica pattern and combining elbow extension w/ sh range of motion (as noted w/ sh raises, sh abd, sh flex and sh ext). Thus, exercises have been focusing on motor planning/tone management/motor retraining. Continued outpatient OT is recommended to address L UE function, including but not limited to active range of motion, tone management, motor planning, awareness of L UE in space, education re: AE/ modification/compensatory strategies to support functional abilities. Home Exercise Program 04/26/23 = Discussed potential use of arm pulleys for home use; instructed in passive hor abd/ER stretch w/ use of TT w / trunk flex. Rec 2-3 times w/ hold of 20 - 30 sec+. 04/07/23 = Provided with square of dycem for home use to assist w/ L handed grasp or other functional activities ( as identified). Instructed in use of horizontal bar for weight bearing/tone management , motor re-training/grasp; Kari to identify alt option in the home to support carry- over. 03/17/23 = Rec completion of UE tone management exercises daily; passively stretching L UE out of typical jessica pattern daily (which would include daily execution of modified ER stretch supine, for 20 to 30+ sec, 2-3 repetitions based on response in today's session, w/ use of pillow support for L elbow w/ support of family member, and possible use of heat for 5-10 minutes as tolerated/w/ temperature skin being monitored given change in UE sensation). 03/09/23 = Motor planning sh add; rec use of TT 3 x 10 every other day or 3 x a week. - Plan Therapy Recommendations Continue with Current Program, Advance per Rehabilitation Protocol Comment 12 weeks Frequency of Treatment Once a Week Therapeutic Contents Active Range of Motion, Adaptive Equipment Education, Functional Activities,Home Exercise Program,Joint Protection,Manual Therapy, Education,Neurodevelopment Treatment,Neuromuscular Re- Education,Self-Care,Stretching /Flexibility Activities, Therapeutic Activities, Therapeutic Exercises, Modalities,Sensory Re- education Modalities As Needed,As Prescribed Additional Types of Modalities Heat/Ice/Contrast/Ultrasound/E -stim Electronically Signed by: Juliet Delatorre OT 05/05/23 0859 If you are in agreement with this Plan of Care, please return a signed and dated copy. I have reviewed this Plan of Care and certify that the skilled therapy services above are required to meet the patient?s needs. Physician Signature Date Printed Name and Credentials Clinical Instructor Signature Printed Name and Credentials
--- NOTE | 2023-05-11 15:37 | OT.OP.TRT ---
Visit Care Team Role Provider Type Kristian Kim MD Attending Provider Physician Family Provider Primary Care Provider Referring Provider Specialty: Family Practice Address: [address] [place] [address], [facility] Email: [email or web address] Occupational Therapy Treatment Note OT Outpatient Treatment Note - Adult Start: 03/02/23 09:26 Freq: Status: Active Protocol: Document 05/11/23 15:28 AMS (Rec: 05/11/23 15:37 AMS [id number]) OT Outpatient Adult Treatment Note Session Time Visit Start Time 12:25 Visit Stop Time 13:00 Visit Information Visit Number 05/21; 08/27 --> visit KX modifier Plan of Care Dates 05/04/23 - 07/27/23 Insurance Information Medicare Setting Treatment Setting Outpatient Care Visit Type Note Type Progress Note General Information General Information Kari is a 67 year-old R hand dominant male referred to outpatient OT by PCP d/t L UE weakness secondary to stroke that occurred in June of 2022 . Medical history: Blood pressure, CHF, h/o falls, h/o R rotator cuff tear. Kari reported that he resides w/ his and son (Santana) who are available to assist him; they reside in a 4-story home (w/ bedroom and bath on 3rd floor of home) and he is retired. He has modified a brief case to assist w/ transporting of items which is equipped w/ cross body strap; use of countertops to transport items via sliding. ( +) 1-handed buttoning noted w/ R hand. Sleeps on R side since having stroke. completes meal prep in home. He presents ambulating w/ SPC (he progressed from manual w/c --> hemiwalker --> SPC). He has received home health PT and is currently being seen in the outpatient clinic at [facility] by PT. AFO has been rec by PT; he presented without AFO. He was reportedly previously seen by speech and discharged d/t no concerns re : cognition, speech, and/or swallow. He was seen by [facility] OT. He is not using L UE sling and/or distal UE splint. He does have a home e-stim unit; he is actively stretching the L hand/digits into extension to maintain available range of motion. - Subjective Identification Type Name Observations Continued use of SPC w/ elongated base w/ gait. Report of continued difficulty w/ L UE motor planning. *Monitor for pain w/ R sh abd. Patient Expectation/Goals Address L UE function Patient/Caregiver Compliance with Home Good Exercise Program - Objective Objective Measurements Please refer to below for progress towards meeting established OT goals: Short Term Goals 1. Kari will present with improved active range of motion of the left upper extremity, this will be evidenced by the followina. 0-35 degrees active L shoulder flexion. 1b. 0-45 degrees active L shoulder abduction. 1c. 0-10 degrees active L elbow extension. 2. Kari will present with improved functional abilities; 1a. This will be evidenced by Kari's ability to verbalize and/or demonstrate use of 2 to 3 different AE/modification /compensatory strategies in the home. 04/07/23 = Provision of square of dycem [employer] Goals 1. Kari will be modified independent with execution of home exercise program utilizing provided written and visual instructions from therapist as needed. 05/04/23 = 50% met - Exercises 9 Descriptor L UE motor planning. L sh hor abd. Use of mat. Assist to facilitate elbow ext . 2 x 10. 8 Descriptor Seated cane exercises. B seated row w/ active elbow ext w/ visual end point knees. 2 x 10. Elbow flex/ext. forearm pronation. 2 x 10. B sh flexion. 2 x 10. L ER; min phys assist to maintain division road supervisor. 2 x 10. Sh hor abd/add. 2 x 10. L sh abd. 2 x 10. 6 Descriptor Arm Pulleys. Seated. x 10 minutes. Use of ball to support upright posture/ discourage trunk extension. 5 Descriptor Tone management/UE neuro retraining. Use of horizontal bar. Dycem assist for L hand grasp. Max phys assist to grasping horizontal bar and release horizontal bar. L <-> R weight shift. 2 x 10. Min phys assist to facilitate elbow ext. Elbow ext, leaning slightly backwards and pulling self forwards. 2 x 10. Sh flex, combined w/ elbow ext , forearm pronation and wrist in slight extension. Pulsing grasp (50% of force of division road supervisor). 2 x 10. Completed sitting. Positioning of both hands on horizontal bar, hands shoulder width apart. Pulling up into standing <-> maintaining grasp w/ sitting/standing B UEs. 1 x 7. Positioning of both hands on horizontal bar, hands shoulder width apart, pulling up into standing B hands, returning to sitting w/ L UE/L hand positioned on bar only. 1 x 5. Modified dip w/ use of bar L UE. x 10 minutes. Use of e- stim. 4 Descriptor UEB. x 5 minutes forwards direction. Height approx level 2. Seated. Physical assist to facilitate L elbow wrist ext. 3 Descriptor Tone management/functional weight bearing. Tone management/weight shift at wall. Max phys assist for positioning of L hand on wall; min phys assist to facilitate elbow ext. N/A 04/07/23 EOM. Trunk flexion. 1 x 10. Use of dycem. EOM. Upright sitting. L <-> R weight shift. 1 x 10. 2 Descriptor Seated UE exercises. Pendulum. 2 x 10. Sh flex <-> Sh ext. Sh abd. 2 x 10. Therapist assist to end range of motion. Elbow flex/ext. 2 x 10. Elbow positioned at side by clinician. *(+) benefit of stretch into elbow flex. Elbow flex/ext, elbow positioned at side by clinician. 90 degrees elbow flex -> end range of motion. 3 x 10. Formation of fist, gross digit flexion. Elbow positioned in approximately 90 degrees and forearm supported/blocking to discourage wrist flex/RD. 3 x 10. - Assessment Assessment of Improvement Kari cont to have difficulty moving the L UE out of typical jessica pattern and combining elbow extension w/ sh range of motion (as noted w / sh raises, sh abd, sh flex and sh ext). Revisited seated pendulum exercises, seated elbow range of motion; introduced gross grasp/digit flexion w/ proximal forearm blocked by table. Overall, good session. Given today's shortened treatment session, therapist did not obtain L UE range of motion therapeutic exercises. Recommend re-assessing L UE ROM at time of next treatment session. Continued outpatient OT is recommended to address L UE function, including but not limited to active range of motion, tone management, motor planning, awareness of L UE in space, education re: AE /modification/compensatory strategies to support functional abilities. Home Exercise Program 04/26/23 = Discussed potential use of arm pulleys for home use; instructed in passive hor abd/ER stretch w/ use of TT w / trunk flex. Rec 2-3 times w/ hold of 20 - 30 sec+. 04/07/23 = Provided with square of dycem for home use to assist w/ L handed grasp or other functional activities ( as identified). Instructed in use of horizontal bar for weight bearing/tone management , motor re-training/grasp; Kari to identify alt option in the home to support carry- over. 03/17/23 = Rec completion of UE tone management exercises daily; passively stretching L UE out of typical jessica pattern daily (which would include daily execution of modified ER stretch supine, for 20 to 30+ sec, 2-3 repetitions based on response in today's session, w/ use of pillow support for L elbow w/ support of family member, and possible use of heat for 5-10 minutes as tolerated/w/ temperature skin being monitored given change in UE sensation). 03/09/23 = Motor planning sh add; rec use of TT 3 x 10 every other day or 3 x a week. - Plan Therapy Recommendations Continue with Current Program, Advance per Rehabilitation Protocol Modalities As Needed,As Prescribed Additional Types of Modalities Heat/Ice/Contrast/Ultrasound/E -stim
--- NOTE | 2023-05-18 12:33 | OT.OP.TRT ---
Visit Care Team Role Provider Type Kristian Kim MD Attending Provider Physician Family Provider Primary Care Provider Referring Provider Specialty: Family Practice Address: [address] [place] [address], [facility] Email: [email or web address] Occupational Therapy Treatment Note OT Outpatient Treatment Note - Adult Start: 03/02/23 09:26 Freq: Status: Active Protocol: Document 05/18/23 12:19 AMS (Rec: 05/18/23 12:32 AMS [id number]) OT Outpatient Adult Treatment Note Session Time Visit Start Time 10:30 Visit Stop Time 11:15 Visit Information Visit Number 05/21; 08/27 --> visit KX modifier Plan of Care Dates 05/04/23 - 07/27/23 Insurance Information Medicare Setting Treatment Setting Outpatient Care Visit Type Note Type Treatment Note General Information General Information Kari is a 67 year-old R hand dominant male referred to outpatient OT by PCP d/t L UE weakness secondary to stroke that occurred in June of 2022 . Medical history: Blood pressure, CHF, h/o falls, h/o R rotator cuff tear. Kari reported that he resides w/ his and son (Santana) who are available to assist him; they reside in a 4-story home (w/ bedroom and bath on 3rd floor of home) and he is retired. He has modified a brief case to assist w/ transporting of items which is equipped w/ cross body strap; use of countertops to transport items via sliding. ( +) 1-handed buttoning noted w/ R hand. Sleeps on R side since having stroke. completes meal prep in home. He presents ambulating w/ SPC (he progressed from manual w/c --> hemiwalker --> SPC). He has received home health PT and is currently being seen in the outpatient clinic at [facility] by PT. AFO has been rec by PT; he presented without AFO. He was reportedly previously seen by speech and discharged d/t no concerns re : cognition, speech, and/or swallow. He was seen by [facility] OT. He is not using L UE sling and/or distal UE splint. He does have a home e-stim unit; he is actively stretching the L hand/digits into extension to maintain available range of motion. - Subjective Identification Type Name Observations Report of injury to R hip; denied recent fall. Continued use of SPC w/ elongated base w / gait. *Monitor for pain w/ R sh abd. Patient Expectation/Goals Address L UE function Patient/Caregiver Compliance with Home Good Exercise Program - Objective Objective Measurements Please refer to below for progress towards meeting established OT goals: Short Term Goals 1. Kari will present with improved active range of motion of the left upper extremity, this will be evidenced by the followina. 0-35 degrees active L shoulder flexion. 05/18/23 = 0- 30 degrees active L sh flex ( initial 0-25 degrees) 1b. 0-55 degrees active L shoulder abduction. 05/18/23 = GOAL UPGRADED 1c. 0-10 degrees active L elbow extension. 2. Kari will present with improved functional abilities; 1a. This will be evidenced by Kari's ability to verbalize and/or demonstrate use of 2 to 3 different AE/modification /compensatory strategies in the home. 05/18/23 = Uses notebook for writing; uses AE cutting board equipped w/ 2 prongs, 'jarrett' , and suction cups positioned on bottom of board GOALS MET 0-45 degrees active L shoulder abduction. *MET 05/18/23 vs initial 0-35 degrees L sh abd Longterm Goals 1. Kari will be modified independent with execution of home exercise program utilizing provided written and visual instructions from therapist as needed. 05/18/23 = 50% met - Exercises 6 Descriptor Arm Pulleys. Seated. x 10 minutes. Use of ball to support upright posture/ discourage trunk extension. 2 Descriptor Seated UE exercises. Pendulum. 2 x 10. Sh flex <-> Sh ext. Sh abd. 2 x 10. Therapist assist to end range of motion. Elbow flex/ext. 2 x 10. Elbow positioned at side by clinician. *(+) benefit of stretch into elbow flex. Elbow flex/ext, elbow positioned at side by clinician. 90 degrees elbow flex -> end range of motion. 3 x 10. Formation of fist, gross digit flexion. Elbow positioned in approximately 90 degrees and forearm supported/blocking to discourage wrist flex/RD. 3 x 10. - Assessment Assessment of Improvement Improved left shoulder active range of motion. (+) use of cutting board w/ suction cups on bottom of board and 2 prongs and 'jarrett' (which has been used to assist w/ buttering of toast); report of use of notebook/folder w/ writing w/ observed slant. Discussion re: possible use of dycem underneath notebook to discourage movement w/ writing vs clipboard; rec cont use of notepad/folder vs single piece of paper if having difficulties w/ stabilization of paper. Discussion that slant of writing may be d/t change in positioning of paper w/ writing since stroke given that pre-stroke may have slanted paper based on handedness. (+) stiffness of L UE noted w/ dressing (e.g., donning of jacket) pre- ranging of L UE; may benefit from stretching L UE passively w/ R UE in bed for short duration prior to getting up if tolerable (and/or use of cane, and/or assist from family member). Warm/hot shower and/or hot pack in the mornings may also be beneficial prior to stretching if initially uncomfortable w/ range of motion/too stiff. Use of bedside TT to reduce amount of range of motion moving L UE thru against gravity. May benefit from sliding TT material vs towel. Overall, good session. Given today's shortened treatment session, therapist did not obtain L UE range of motion therapeutic exercises. Recommend re-assessing L UE ROM at time of next treatment session. Continued outpatient OT is recommended to address L UE function, including but not limited to active range of motion, tone management, motor planning, awareness of L UE in space, education re: AE /modification/compensatory strategies to support functional abilities. Home Exercise Program 04/26/23 = Discussed potential use of arm pulleys for home use; instructed in passive hor abd/ER stretch w/ use of TT w / trunk flex. Rec 2-3 times w/ hold of 20 - 30 sec+. 04/07/23 = Provided with square of dycem for home use to assist w/ L handed grasp or other functional activities ( as identified). Instructed in use of horizontal bar for weight bearing/tone management , motor re-training/grasp; Kari to identify alt option in the home to support carry- over. 03/17/23 = Rec completion of UE tone management exercises daily; passively stretching L UE out of typical jessica pattern daily (which would include daily execution of modified ER stretch supine, for 20 to 30+ sec, 2-3 repetitions based on response in today's session, w/ use of pillow support for L elbow w/ support of family member, and possible use of heat for 5-10 minutes as tolerated/w/ temperature skin being monitored given change in UE sensation). 03/09/23 = Motor planning sh add; rec use of TT 3 x 10 every other day or 3 x a week. - Plan Therapy Recommendations Continue with Current Program, Advance per Rehabilitation Protocol Modalities As Needed,As Prescribed Additional Types of Modalities Heat/Ice/Contrast/Ultrasound/E -stim
--- NOTE | 2023-05-25 16:00 | OT.OP.TRT ---
Visit Care Team Role Provider Type Kristian Kim MD Attending Provider Physician Family Provider Primary Care Provider Referring Provider Specialty: Family Practice Address: [address] [place] [address], [facility] Email: [email or web address] Occupational Therapy Treatment Note OT Outpatient Treatment Note - Adult Start: 03/02/23 09:26 Freq: Status: Active Protocol: Document 05/25/23 16:00 AMS (Rec: 05/26/23 09:29 AMS [id number]) OT Outpatient Adult Treatment Note Session Time Visit Start Time 10:30 Visit Stop Time 11:15 Visit Information Visit Number 06/18; 09/27 --> visit KX modifier Plan of Care Dates 05/04/23 - 07/27/23 Insurance Information Medicare Setting Treatment Setting Outpatient Care Visit Type Note Type Treatment Note General Information General Information Kari is a 67 year-old R hand dominant male referred to outpatient OT by PCP d/t L UE weakness secondary to stroke that occurred in June of 2022 . Medical history: Blood pressure, CHF, h/o falls, h/o R rotator cuff tear. Kari reported that he resides w/ his and son (Santana) who are available to assist him; they reside in a 4-story home (w/ bedroom and bath on 3rd floor of home) and he is retired. He has modified a brief case to assist w/ transporting of items which is equipped w/ cross body strap; use of countertops to transport items via sliding. ( +) 1-handed buttoning noted w/ R hand. Sleeps on R side since having stroke. completes meal prep in home. He presents ambulating w/ SPC (he progressed from manual w/c --> hemiwalker --> SPC). He has received home health PT and is currently being seen in the outpatient clinic at [facility] by PT. AFO has been rec by PT; he presented without AFO. He was reportedly previously seen by speech and discharged d/t no concerns re : cognition, speech, and/or swallow. He was seen by [facility] OT. He is not using L UE sling and/or distal UE splint. He does have a home e-stim unit; he is actively stretching the L hand/digits into extension to maintain available range of motion. - Subjective Identification Type Name Observations Continued use of SPC w/ elongated base w/ gait. *Monitor for pain w/ R sh abd. Patient Expectation/Goals Address L UE function Patient/Caregiver Compliance with Home Good Exercise Program - Objective Objective Measurements Please refer to below for progress towards meeting established OT goals: Short Term Goals 1. Kari will present with improved active range of motion of the left upper extremity, this will be evidenced by the followina. 0-35 degrees active L shoulder flexion. 05/18/23 = 0- 30 degrees active L sh flex ( initial 0-25 degrees) 1b. 0-55 degrees active L shoulder abduction. 05/18/23 = GOAL UPGRADED 1c. 0-10 degrees active L elbow extension. 2. Kari will present with improved functional abilities; 1a. This will be evidenced by Kari's ability to verbalize and/or demonstrate use of 2 to 3 different AE/modification /compensatory strategies in the home. 05/18/23 = Uses notebook for writing; uses AE cutting board equipped w/ 2 prongs, 'jarrett' , and suction cups positioned on bottom of board GOALS MET 0-45 degrees active L shoulder abduction. *MET 05/18/23 vs initial 0-35 degrees L sh abd Group Home Goals 1. Kari will be modified independent with execution of home exercise program utilizing provided written and visual instructions from therapist as needed. 05/18/23 = 50% met - Exercises 6 Descriptor UEB seated x 4 minutes. N/A 05/25/23 Arm Pulleys. Seated. x 10 minutes. Use of ball to support upright posture/ discourage trunk extension. 2 Descriptor Seated UE exercises. Elbow flex/ext. 2 x 10. Elbow positioned at side by clinician. *(+) benefit of stretch into elbow flex. Elbow flex/ext, elbow positioned at side by clinician. 90 degrees elbow flex -> end range of motion. 3 x 10. Wrist flex. 3 x 10. Elbow 90 degrees flex; forearm in neutral. Blocking provided by therapist. *Wrist flex. 3 x 10. Elbow 90 degrees flex; forearm in neutral. Blocking provided by therapist. Use of 3 and 1/2- inch ball in palm of hand. *Wrist flex. 3 x 10. Elbow 90 degrees flex; forearm in full pronation. Blocking provided by therapist. Use of 3 and 1/2 -inch ball in palm of hand. Scapular row. 3 x 10. Assist w / full elbow ext. Use of 3 and 1/2-inch ball in palm of hand . Reaching across L -> R hip. 3 x 10. Positioning of L UE at L knee -> R hip. 3 x 10. N/A 05/25/23 Pendulum. 2 x 10. Sh flex <-> Sh ext. Sh abd. 2 x 10. Therapist assist to end range of motion. Formation of fist, gross digit flexion. Elbow positioned in approximately 90 degrees and forearm supported/blocking to discourage wrist flex/RD. 3 x 10. - Assessment Assessment of Improvement (+) response to 3 and 1/2-inch ball in palm of hand with L UE exercises to discourage fisting w/ motor planning. Overall, good session. Given today's shortened treatment session, therapist did not obtain L UE range of motion therapeutic exercises. Recommend re-assessing L UE ROM at time of next treatment session. Continued outpatient OT is recommended to address L UE function, including but not limited to active range of motion, tone management, motor planning, awareness of L UE in space, education re: AE /modification/compensatory strategies to support functional abilities. Home Exercise Program 04/26/23 = Discussed potential use of arm pulleys for home use; instructed in passive hor abd/ER stretch w/ use of TT w / trunk flex. Rec 2-3 times w/ hold of 20 - 30 sec+. 04/07/23 = Provided with square of dycem for home use to assist w/ L handed grasp or other functional activities ( as identified). Instructed in use of horizontal bar for weight bearing/tone management , motor re-training/grasp; Kari to identify alt option in the home to support carry- over. 03/17/23 = Rec completion of UE tone management exercises daily; passively stretching L UE out of typical jessica pattern daily (which would include daily execution of modified ER stretch supine, for 20 to 30+ sec, 2-3 repetitions based on response in today's session, w/ use of pillow support for L elbow w/ support of family member, and possible use of heat for 5-10 minutes as tolerated/w/ temperature skin being monitored given change in UE sensation). 03/09/23 = Motor planning sh add; rec use of TT 3 x 10 every other day or 3 x a week. - Plan Therapy Recommendations Continue with Current Program, Advance per Rehabilitation Protocol Modalities As Needed,As Prescribed Additional Types of Modalities Heat/Ice/Contrast/Ultrasound/E -stim
--- NOTE | 2023-06-01 16:00 | OT.OP.TRT ---
Visit Care Team Role Provider Type Kristian Kim MD Attending Provider Physician Family Provider Primary Care Provider Referring Provider Specialty: Family Practice Address: [address] [place] [address], [facility] Email: [email or web address] Occupational Therapy Treatment Note OT Outpatient Treatment Note - Adult Start: 03/02/23 09:26 Freq: Status: Active Protocol: Document 06/01/23 16:00 AMS (Rec: 06/02/23 09:35 AMS [id number]) OT Outpatient Adult Treatment Note Session Time Visit Start Time 12:20 Visit Stop Time 13:00 Visit Information Visit Number 07/19; 10/27 --> visit KX modifier Plan of Care Dates 05/04/23 - 07/27/23 Insurance Information Medicare Setting Treatment Setting Outpatient Care Visit Type Note Type Treatment Note General Information General Information Kari is a 67 year-old R hand dominant male referred to outpatient OT by PCP d/t L UE weakness secondary to stroke that occurred in June of 2022 . Medical history: Blood pressure, CHF, h/o falls, h/o R rotator cuff tear. Kari reported that he resides w/ his and son (Santana) who are available to assist him; they reside in a 4-story home (w/ bedroom and bath on 3rd floor of home) and he is retired. He has modified a brief case to assist w/ transporting of items which is equipped w/ cross body strap; use of countertops to transport items via sliding. ( +) 1-handed buttoning noted w/ R hand. Sleeps on R side since having stroke. completes meal prep in home. He presents ambulating w/ SPC (he progressed from manual w/c --> hemiwalker --> SPC). He has received home health PT and is currently being seen in the outpatient clinic at [facility] by PT. AFO has been rec by PT; he presented without AFO. He was reportedly previously seen by speech and discharged d/t no concerns re : cognition, speech, and/or swallow. He was seen by [facility] OT. He is not using L UE sling and/or distal UE splint. He does have a home e-stim unit; he is actively stretching the L hand/digits into extension to maintain available range of motion. - Subjective Identification Type Name Observations Continued use of SPC w/ elongated base w/ gait. Kari has family available to support range of motion of upper extremity in the home. *Monitor for pain w/ R sh abd. Patient Expectation/Goals Address L UE function Patient/Caregiver Compliance with Home Good Exercise Program - Objective Objective Measurements Please refer to below for progress towards meeting established OT goals: Short Term Goals 1. Kari will present with improved active range of motion of the left upper extremity, this will be evidenced by the followina. 0-35 degrees active L shoulder flexion. 05/18/23 = 0- 30 degrees active L sh flex ( initial 0-25 degrees) 1b. 0-55 degrees active L shoulder abduction. 05/18/23 = GOAL UPGRADED 1c. 0-10 degrees active L elbow extension. 2. Kari will present with improved functional abilities; 1a. This will be evidenced by Kari's ability to verbalize and/or demonstrate use of 2 to 3 different AE/modification /compensatory strategies in the home. 05/18/23 = Uses notebook for writing; uses AE cutting board equipped w/ 2 prongs, 'jarrett' , and suction cups positioned on bottom of board GOALS MET 0-45 degrees active L shoulder abduction. *MET 05/18/23 vs initial 0-35 degrees L sh abd Stapler Machine Goals 1. Kari will be modified independent with execution of home exercise program utilizing provided written and visual instructions from therapist as needed. 05/18/23 = 50% met - Exercises 6 Descriptor Arm pulleys x 8 minutes. Would benefit from rigid straight back chair vs ball to support maintenance of posture, discourage proximal compensatory strategies. N/A 05/25/23 Arm Pulleys. Seated. x 10 minutes. Use of ball to support upright posture/ discourage trunk extension. 2 Descriptor Seated UE exercises. Passive distal UE stretch at EOM. Combo of sh ext, elbow ext, forearm supination, wrist ext; trunk flex -> sitting up straight w/ blocking at elbow . Elbow flex/ext. 2 x 10. Elbow positioned at side by clinician. *(+) benefit of stretch into elbow flex. Elbow flex/ext, elbow positioned at side by clinician. 90 degrees elbow flex -> end range of motion. 3 x 10. *Wrist flex. 3 x 10. Elbow 90 degrees flex; forearm in neutral. Blocking provided by therapist. Use of 3 and 1/2- inch ball in palm of hand. *Wrist flex. 3 x 10. Elbow 90 degrees flex; forearm in full pronation. Blocking provided by therapist. Use of 3 and 1/2 -inch ball in palm of hand. Scapular row. 3 x 10. Assist w / full elbow ext. Use of 3 and 1/2-inch ball in palm of hand . Reaching across L -> R hip. 3 x 10. Positioning of L UE at L knee -> R hip. 3 x 10. - Assessment Assessment of Improvement (+) response to 3 and 1/2-inch ball in palm of hand with L UE exercises to discourage fisting w/ motor planning. Introduced passive sh ext, elbow ext, forearm sup, and wrist ext seated at EOM w/ blocking of elbow and ability for Kari to control degree of stretch w/ moving from trunk flex -> trunk ext position/or upright sitting. Did position hand/UE to facilitate this exercise; discussed seeking of support of family for blocking elbow and initial positioning of hand/arm. (+) tightness of elbow flexors palpated near proximal to insertion points, thus, manual also provided w/ this stretch to seek lengthening of elbow flexors/ address tone. Overall, good session. Given today's shortened treatment session, therapist did not obtain L UE range of motion therapeutic exercises. Recommend re-assessing L UE ROM at time of next treatment session. Continued outpatient OT is recommended to address L UE function, including but not limited to active range of motion, tone management, motor planning, awareness of L UE in space, education re: AE /modification/compensatory strategies to support functional abilities. Home Exercise Program 06/01/23 = Discussed combo sh ext, elbow ext, forearm sup, wrist ext seated w/ blocking of elbow to support elbow ext w/ ability to modify degree of stretch w/ trunk ext (moving from trunk flexion -> upright seated position). 04/26/23 = Discussed potential use of arm pulleys for home use; instructed in passive hor abd/ER stretch w/ use of TT w / trunk flex. Rec 2-3 times w/ hold of 20 - 30 sec+. 04/07/23 = Provided with square of dycem for home use to assist w/ L handed grasp or other functional activities ( as identified). Instructed in use of horizontal bar for weight bearing/tone management , motor re-training/grasp; Kari to identify alt option in the home to support carry- over. 03/17/23 = Rec completion of UE tone management exercises daily; passively stretching L UE out of typical jessica pattern daily (which would include daily execution of modified ER stretch supine, for 20 to 30+ sec, 2-3 repetitions based on response in today's session, w/ use of pillow support for L elbow w/ support of family member, and possible use of heat for 5-10 minutes as tolerated/w/ temperature skin being monitored given change in UE sensation). 03/09/23 = Motor planning sh add; rec use of TT 3 x 10 every other day or 3 x a week. - Plan Therapy Recommendations Continue with Current Program, Advance per Rehabilitation Protocol Modalities As Needed,As Prescribed Additional Types of Modalities Heat/Ice/Contrast/Ultrasound/E -stim
--- NOTE | 2023-06-08 16:00 | OT.OP.TRT ---
Visit Care Team Role Provider Type Kristian Kim MD Attending Provider Physician Family Provider Primary Care Provider Referring Provider Specialty: Family Practice Address: [address] [place] [address], [facility] Email: [email or web address] Occupational Therapy Treatment Note OT Outpatient Treatment Note - Adult Start: 03/02/23 09:26 Freq: Status: Active Protocol: Document 06/08/23 16:00 AMS (Rec: 06/09/23 11:03 AMS [id number]) OT Outpatient Adult Treatment Note Session Time Visit Start Time 14:35 Visit Stop Time 15:15 Visit Information Visit Number 08/18; 11/27 --> visit KX modifier Plan of Care Dates 05/04/23 - 07/27/23 Insurance Information Medicare Setting Treatment Setting Outpatient Care Visit Type Note Type Treatment Note General Information General Information Kari is a 67 year-old R hand dominant male referred to outpatient OT by PCP d/t L UE weakness secondary to stroke that occurred in June of 2022 . Medical history: Blood pressure, CHF, h/o falls, h/o R rotator cuff tear. Kari reported that he resides w/ his and son (Santana) who are available to assist him; they reside in a 4-story home (w/ bedroom and bath on 3rd floor of home) and he is retired. He has modified a brief case to assist w/ transporting of items which is equipped w/ cross body strap; use of countertops to transport items via sliding. ( +) 1-handed buttoning noted w/ R hand. Sleeps on R side since having stroke. completes meal prep in home. He presents ambulating w/ SPC (he progressed from manual w/c --> hemiwalker --> SPC). He has received home health PT and is currently being seen in the outpatient clinic at [facility] by PT. AFO has been rec by PT; he presented without AFO. He was reportedly previously seen by speech and discharged d/t no concerns re : cognition, speech, and/or swallow. He was seen by [facility] OT. He is not using L UE sling and/or distal UE splint. He does have a home e-stim unit; he is actively stretching the L hand/digits into extension to maintain available range of motion. - Subjective Identification Type Name Observations Continued use of SPC w/ elongated base w/ gait. Kari has family available to support range of motion of upper extremity in the home. *Monitor for pain w/ R sh abd. Patient Expectation/Goals Address L UE function Patient/Caregiver Compliance with Home Good Exercise Program - Objective Objective Measurements Please refer to below for progress towards meeting established OT goals: Short Term Goals 1. Kari will present with improved active range of motion of the left upper extremity, this will be evidenced by the followina. 0-35 degrees active L shoulder flexion. 05/18/23 = 0- 30 degrees active L sh flex ( initial 0-25 degrees) 1b. 0-55 degrees active L shoulder abduction. 05/18/23 = GOAL UPGRADED 1c. 0-10 degrees active L elbow extension. 2. Kari will present with improved functional abilities; 1a. This will be evidenced by Kari's ability to verbalize and/or demonstrate use of 2 to 3 different AE/modification /compensatory strategies in the home. 05/18/23 = Uses notebook for writing; uses AE cutting board equipped w/ 2 prongs, 'jarrett' , and suction cups positioned on bottom of board GOALS MET 0-45 degrees active L shoulder abduction. *MET 05/18/23 vs initial 0-35 degrees L sh abd Lathe Spotter Goals 1. Kari will be modified independent with execution of home exercise program utilizing provided written and visual instructions from therapist as needed. 05/18/23 = 50% met - Exercises 6 Descriptor Arm pulleys x 8 minutes. N/A 05/25/23 Arm Pulleys. Seated. x 10 minutes. Use of ball to support upright posture/ discourage trunk extension. 2 Descriptor Seated UE exercises. Passive distal UE stretch at EOM. Combo of sh ext, elbow ext, forearm supination, wrist ext; trunk flex -> sitting up straight w/ blocking at elbow . Trialed use of cane for execution of this exercise; trialed formation of fist vs use of cane vs opening of hand as another option given pain/ discomfort reported w/ sh ext, elbow ext, forearm supination , wrist ext, digit ext. Elbow flex/ext. 2 x 10. Elbow positioned at side by clinician. *(+) benefit of stretch into elbow flex. Elbow flex/ext, elbow positioned at side by clinician. 90 degrees elbow flex -> end range of motion. 3 x 10. *Wrist flex. 3 x 10. Elbow 90 degrees flex; forearm in neutral. Blocking provided by therapist. Use of 3 and 1/2- inch ball in palm of hand. *Wrist flex. 3 x 10. Elbow 90 degrees flex; forearm in full pronation. Blocking provided by therapist. Use of 3 and 1/2 -inch ball in palm of hand. Scapular row. 3 x 10. Assist w / full elbow ext. Use of 3 and 1/2-inch ball in palm of hand . Reaching across L -> R hip. 3 x 10. Positioning of L UE at L knee -> R hip. 3 x 10. Sh ext. Sh add. - Assessment Assessment of Improvement (+) response to 3 and 1/2-inch ball in palm of hand with L UE exercises to discourage fisting w/ motor planning. Given pain/discomfort reported w/ sh ext, elbow ext, forearm supination, wrist/digit extension at EOM, modified to formation of fist vs use of cane. This approaches may support ability to execute this exercise without assistance and be able to have assist from family with other UE exercises. Continued positive response to arm pulleys; arm pulleys may also be a good option for home exercises, although, he does need support w/ maintaining natural developer of handle, thus, he may need assist to support maintenance of natural developer vs use of velcro mitt or other strategy/ modification. Overall, good session. Given today's shortened treatment session, therapist did not obtain L UE range of motion therapeutic exercises. Recommend re-assessing L UE ROM at time of next treatment session. Continued outpatient OT is recommended to address L UE function, including but not limited to active range of motion, tone management, motor planning, awareness of L UE in space, education re: AE /modification/compensatory strategies to support functional abilities. Home Exercise Program 06/01/23 = Discussed combo sh ext, elbow ext, forearm sup, wrist ext seated w/ blocking of elbow to support elbow ext w/ ability to modify degree of stretch w/ trunk ext (moving from trunk flexion -> upright seated position). 04/26/23 = Discussed potential use of arm pulleys for home use; instructed in passive hor abd/ER stretch w/ use of TT w / trunk flex. Rec 2-3 times w/ hold of 20 - 30 sec+. 04/07/23 = Provided with square of dycem for home use to assist w/ L handed grasp or other functional activities ( as identified). Instructed in use of horizontal bar for weight bearing/tone management , motor re-training/grasp; Kari to identify alt option in the home to support carry- over. 03/17/23 = Rec completion of UE tone management exercises daily; passively stretching L UE out of typical jessica pattern daily (which would include daily execution of modified ER stretch supine, for 20 to 30+ sec, 2-3 repetitions based on response in today's session, w/ use of pillow support for L elbow w/ support of family member, and possible use of heat for 5-10 minutes as tolerated/w/ temperature skin being monitored given change in UE sensation). 03/09/23 = Motor planning sh add; rec use of TT 3 x 10 every other day or 3 x a week. - Plan Therapy Recommendations Continue with Current Program, Advance per Rehabilitation Protocol Modalities As Needed,As Prescribed Additional Types of Modalities Heat/Ice/Contrast/Ultrasound/E -stim
--- NOTE | 2023-06-09 11:03 | OT.OP.TRT ---
Visit Care Team Role Provider Type Kristian Kim MD Attending Provider Physician Family Provider Primary Care Provider Referring Provider Specialty: Family Practice Address: [address] [place] [address], [facility] Email: [email or web address] Occupational Therapy Treatment Note OT Outpatient Treatment Note - Adult Start: 03/02/23 09:26 Freq: Status: Active Protocol: Document 06/08/23 16:00 AMS (Rec: 06/09/23 11:03 AMS [id number]) OT Outpatient Adult Treatment Note Session Time Visit Start Time 14:35 Visit Stop Time 15:15 Visit Information Visit Number 08/18; 11/27 --> visit KX modifier Plan of Care Dates 05/04/23 - 07/27/23 Insurance Information Medicare Setting Treatment Setting Outpatient Care Visit Type Note Type Treatment Note General Information General Information Kari is a 67 year-old R hand dominant male referred to outpatient OT by PCP d/t L UE weakness secondary to stroke that occurred in June of 2022 . Medical history: Blood pressure, CHF, h/o falls, h/o R rotator cuff tear. Kari reported that he resides w/ his and son (Santana) who are available to assist him; they reside in a 4-story home (w/ bedroom and bath on 3rd floor of home) and he is retired. He has modified a brief case to assist w/ transporting of items which is equipped w/ cross body strap; use of countertops to transport items via sliding. ( +) 1-handed buttoning noted w/ R hand. Sleeps on R side since having stroke. completes meal prep in home. He presents ambulating w/ SPC (he progressed from manual w/c --> hemiwalker --> SPC). He has received home health PT and is currently being seen in the outpatient clinic at [facility] by PT. AFO has been rec by PT; he presented without AFO. He was reportedly previously seen by speech and discharged d/t no concerns re : cognition, speech, and/or swallow. He was seen by [facility] OT. He is not using L UE sling and/or distal UE splint. He does have a home e-stim unit; he is actively stretching the L hand/digits into extension to maintain available range of motion. - Subjective Identification Type Name Observations Continued use of SPC w/ elongated base w/ gait. Kari has family available to support range of motion of upper extremity in the home. *Monitor for pain w/ R sh abd. Patient Expectation/Goals Address L UE function Patient/Caregiver Compliance with Home Good Exercise Program - Objective Objective Measurements Please refer to below for progress towards meeting established OT goals: Short Term Goals 1. Kari will present with improved active range of motion of the left upper extremity, this will be evidenced by the followina. 0-35 degrees active L shoulder flexion. 05/18/23 = 0- 30 degrees active L sh flex ( initial 0-25 degrees) 1b. 0-55 degrees active L shoulder abduction. 05/18/23 = GOAL UPGRADED 1c. 0-10 degrees active L elbow extension. 2. Kari will present with improved functional abilities; 1a. This will be evidenced by Kari's ability to verbalize and/or demonstrate use of 2 to 3 different AE/modification /compensatory strategies in the home. 05/18/23 = Uses notebook for writing; uses AE cutting board equipped w/ 2 prongs, 'jarrett' , and suction cups positioned on bottom of board GOALS MET 0-45 degrees active L shoulder abduction. *MET 05/18/23 vs initial 0-35 degrees L sh abd Design Assistant Goals 1. Kari will be modified independent with execution of home exercise program utilizing provided written and visual instructions from therapist as needed. 05/18/23 = 50% met - Exercises 6 Descriptor Arm pulleys x 8 minutes. N/A 05/25/23 Arm Pulleys. Seated. x 10 minutes. Use of ball to support upright posture/ discourage trunk extension. 2 Descriptor Seated UE exercises. Passive distal UE stretch at EOM. Combo of sh ext, elbow ext, forearm supination, wrist ext; trunk flex -> sitting up straight w/ blocking at elbow . Trialed use of cane for execution of this exercise; trialed formation of fist vs use of cane vs opening of hand as another option given pain/ discomfort reported w/ sh ext, elbow ext, forearm supination , wrist ext, digit ext. Elbow flex/ext. 2 x 10. Elbow positioned at side by clinician. *(+) benefit of stretch into elbow flex. Elbow flex/ext, elbow positioned at side by clinician. 90 degrees elbow flex -> end range of motion. 3 x 10. *Wrist flex. 3 x 10. Elbow 90 degrees flex; forearm in neutral. Blocking provided by therapist. Use of 3 and 1/2- inch ball in palm of hand. *Wrist flex. 3 x 10. Elbow 90 degrees flex; forearm in full pronation. Blocking provided by therapist. Use of 3 and 1/2 -inch ball in palm of hand. Scapular row. 3 x 10. Assist w / full elbow ext. Use of 3 and 1/2-inch ball in palm of hand . Reaching across L -> R hip. 3 x 10. Positioning of L UE at L knee -> R hip. 3 x 10. Sh ext. Sh add. - Assessment Assessment of Improvement (+) response to 3 and 1/2-inch ball in palm of hand with L UE exercises to discourage fisting w/ motor planning. Given pain/discomfort reported w/ sh ext, elbow ext, forearm supination, wrist/digit extension at EOM, modified to formation of fist vs use of cane. This approaches may support ability to execute this exercise without assistance and be able to have assist from family with other UE exercises. Continued positive response to arm pulleys; arm pulleys may also be a good option for home exercises, although, he does need support w/ maintaining coffee maker of handle, thus, he may need assist to support maintenance of coffee maker vs use of velcro mitt or other strategy/ modification. Overall, good session. Given today's shortened treatment session, therapist did not obtain L UE range of motion therapeutic exercises. Recommend re-assessing L UE ROM at time of next treatment session. Continued outpatient OT is recommended to address L UE function, including but not limited to active range of motion, tone management, motor planning, awareness of L UE in space, education re: AE /modification/compensatory strategies to support functional abilities. Home Exercise Program 06/01/23 = Discussed combo sh ext, elbow ext, forearm sup, wrist ext seated w/ blocking of elbow to support elbow ext w/ ability to modify degree of stretch w/ trunk ext (moving from trunk flexion -> upright seated position). 04/26/23 = Discussed potential use of arm pulleys for home use; instructed in passive hor abd/ER stretch w/ use of TT w / trunk flex. Rec 2-3 times w/ hold of 20 - 30 sec+. 04/07/23 = Provided with square of dycem for home use to assist w/ L handed grasp or other functional activities ( as identified). Instructed in use of horizontal bar for weight bearing/tone management , motor re-training/grasp; Kari to identify alt option in the home to support carry- over. 03/17/23 = Rec completion of UE tone management exercises daily; passively stretching L UE out of typical jessica pattern daily (which would include daily execution of modified ER stretch supine, for 20 to 30+ sec, 2-3 repetitions based on response in today's session, w/ use of pillow support for L elbow w/ support of family member, and possible use of heat for 5-10 minutes as tolerated/w/ temperature skin being monitored given change in UE sensation). 03/09/23 = Motor planning sh add; rec use of TT 3 x 10 every other day or 3 x a week. - Plan Therapy Recommendations Continue with Current Program, Advance per Rehabilitation Protocol Modalities As Needed,As Prescribed Additional Types of Modalities Heat/Ice/Contrast/Ultrasound/E -stim
--- NOTE | 2023-06-16 15:11 | OT.OP.TRT ---
Visit Care Team Role Provider Type Kristian Kim MD Attending Provider Physician Family Provider Primary Care Provider Referring Provider Specialty: Family Practice Address: [address] [place] [address], [facility] Email: [email or web address] Occupational Therapy Treatment Note OT Outpatient Treatment Note - Adult Start: 03/02/23 09:26 Freq: Status: Active Protocol: Document 06/16/23 14:58 AMS (Rec: 06/16/23 15:10 AMS [id number]) OT Outpatient Adult Treatment Note Session Time Visit Start Time 13:45 Visit Stop Time 14:30 Visit Information Visit Number 09/18; 12/28 --> visit KX modifier Plan of Care Dates 05/04/23 - 07/27/23 Insurance Information Medicare Setting Treatment Setting Outpatient Care Visit Type Note Type Treatment Note General Information General Information Kari is a 67 year-old R hand dominant male referred to outpatient OT by PCP d/t L UE weakness secondary to stroke that occurred in June of 2022 . Medical history: Blood pressure, CHF, h/o falls, h/o R rotator cuff tear. Kari reported that he resides w/ his and son (Santana) who are available to assist him; they reside in a 4-story home (w/ bedroom and bath on 3rd floor of home) and he is retired. He has modified a brief case to assist w/ transporting of items which is equipped w/ cross body strap; use of countertops to transport items via sliding. ( +) 1-handed buttoning noted w/ R hand. Sleeps on R side since having stroke. completes meal prep in home. He presents ambulating w/ SPC (he progressed from manual w/c --> hemiwalker --> SPC). He has received home health PT and is currently being seen in the outpatient clinic at [facility] by PT. AFO has been rec by PT; he presented without AFO. He was reportedly previously seen by speech and discharged d/t no concerns re : cognition, speech, and/or swallow. He was seen by [facility] OT. He is not using L UE sling and/or distal UE splint. He does have a home e-stim unit; he is actively stretching the L hand/digits into extension to maintain available range of motion. - Subjective Identification Type Name Observations Continued use of SPC w/ elongated base w/ gait. Kari reports having sleep difficulties, including management of blankets given sleeping on R side w/ decreased ability to manipulate blankets w/ L UE. Self-ROM of UE includes elbow ext w/ sh flex supine, elbow ext w/ sh flex sidelying on R, passive wrist ext; assist w/ passive wrist/digit ext, passive wrist ext w/ forearm supination/pronation, passive wrist RD/UD w/ wrist ext, distal UE WB seated at EOM w/ forearm in neutral/wrist/digit ext. Observed to passively extend elbow w/ L distal UE stabilized on R LE. *Monitor for pain w/ R sh abd. Patient Expectation/Goals Address L UE function Patient/Caregiver Compliance with Home Good Exercise Program - Objective Objective Measurements Please refer to below for progress towards meeting established OT goals: Short Term Goals 1. Kari will present with improved active range of motion of the left upper extremity, this will be evidenced by the followina. 0-35 degrees active L shoulder flexion. 05/18/23 = 0- 30 degrees active L sh flex ( initial 0-25 degrees) 1b. 0-55 degrees active L shoulder abduction. 05/18/23 = GOAL UPGRADED 1c. 0-10 degrees active L elbow extension. 2. Kari will present with improved functional abilities; 1a. This will be evidenced by Kari's ability to verbalize and/or demonstrate use of 2 to 3 different AE/modification /compensatory strategies in the home. 05/18/23 = Uses notebook for writing; uses AE cutting board equipped w/ 2 prongs, 'jarrett' , and suction cups positioned on bottom of board GOALS MET 0-45 degrees active L shoulder abduction. 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 Kari will be modified independent with execution of home exercise program utilizing provided written and visual instructions from therapist as needed. 05/18/23 = 50% met - Exercises 6 Descriptor Arm pulleys x 10 minutes. N/A 05/25/23 Arm Pulleys. Seated. x 10 minutes. Use of ball to support upright posture/ discourage trunk extension. 2 Descriptor Seated UE exercises. Passive distal UE stretch at EOM. Combo of sh ext, elbow ext, forearm supination, wrist ext, digit flex; trunk flex - > sitting up straight w/ blocking at elbow. Elbow flex/ext. 3 x 10. Elbow positioned at side by clinician. *(+) benefit of stretch into elbow flex. N/A 06/16/23 *Wrist flex. 3 x 10. Elbow 90 degrees flex; forearm in neutral. Blocking provided by therapist. Use of 3 and 1/2- inch ball in palm of hand. *Wrist flex. 3 x 10. Elbow 90 degrees flex; forearm in full pronation. Blocking provided by therapist. Use of 3 and 1/2 -inch ball in palm of hand. Scapular row. 3 x 10. Assist w / full elbow ext. Use of 3 and 1/2-inch ball in palm of hand . Reaching across L -> R hip. 3 x 10. Positioning of L UE at L knee -> R hip. 3 x 10. Sh ext. Sh add. - Assessment Assessment of Improvement Reviewed Kari's current home exercises (exercises that he completes w/ and without assist); increased tolerance for passive sh ext combined w/ elbow ext, forearm supination , wrist/digit ext. Overall, good session. Given today's shortened treatment session, therapist did not obtain L UE range of motion therapeutic exercises. Recommend re-assessing L UE ROM at time of next treatment session. Continued outpatient OT is recommended to address L UE function, including but not limited to active range of motion, tone management, motor planning, awareness of L UE in space, education re: AE /modification/compensatory strategies to support functional abilities. Home Exercise Program 06/01/23 = Discussed combo sh ext, elbow ext, forearm sup, wrist ext seated w/ blocking of elbow to support elbow ext w/ ability to modify degree of stretch w/ trunk ext (moving from trunk flexion -> upright seated position). 04/26/23 = Discussed potential use of arm pulleys for home use; instructed in passive hor abd/ER stretch w/ use of TT w / trunk flex. Rec 2-3 times w/ hold of 20 - 30 sec+. 04/07/23 = Provided with square of dycem for home use to assist w/ L handed grasp or other functional activities ( as identified). Instructed in use of horizontal bar for weight bearing/tone management , motor re-training/grasp; Kari to identify alt option in the home to support carry- over. 03/17/23 = Rec completion of UE tone management exercises daily; passively stretching L UE out of typical jessica pattern daily (which would include daily execution of modified ER stretch supine, for 20 to 30+ sec, 2-3 repetitions based on response in today's session, w/ use of pillow support for L elbow w/ support of family member, and possible use of heat for 5-10 minutes as tolerated/w/ temperature skin being monitored given change in UE sensation). 03/09/23 = Motor planning sh add; rec use of TT 3 x 10 every other day or 3 x a week. - Plan Therapy Recommendations Continue with Current Program, Advance per Rehabilitation Protocol Modalities As Needed,As Prescribed Additional Types of Modalities Heat/Ice/Contrast/Ultrasound/E -stim
--- NOTE | 2023-06-20 16:08 | OT.OP.TRT ---
Visit Care Team Role Provider Type Kristian Kim MD Attending Provider Physician Family Provider Primary Care Provider Referring Provider Specialty: Family Practice Address: [address] [place] [address], [facility] Email: [email or web address] Occupational Therapy Treatment Note OT Outpatient Treatment Note - Adult Start: 03/02/23 09:26 Freq: Status: Active Protocol: Document 06/20/23 16:02 [facility] (Rec: 06/20/23 16:07 [facility] [id number]) OT Outpatient Adult Treatment Note Session Time Visit Start Time 13:00 Visit Stop Time 13:45 Visit Information Visit Number 10/18; 01/27 --> visit KX modifier Plan of Care Dates 05/04/23 - 07/27/23 Insurance Information Medicare Setting Treatment Setting Outpatient Care Visit Type Note Type Treatment Note General Information General Information Kari is a 67 year-old R hand dominant male referred to outpatient OT by PCP d/t L UE weakness secondary to stroke that occurred in June of 2022 . Medical history: Blood pressure, CHF, h/o falls, h/o R rotator cuff tear. Kari reported that he resides w/ his and son (Santana) who are available to assist him; they reside in a 4-story home (w/ bedroom and bath on 3rd floor of home) and he is retired. He has modified a brief case to assist w/ transporting of items which is equipped w/ cross body strap; use of countertops to transport items via sliding. ( +) 1-handed buttoning noted w/ R hand. Sleeps on R side since having stroke. completes meal prep in home. He presents ambulating w/ SPC (he progressed from manual w/c --> hemiwalker --> SPC). He has received home health PT and is currently being seen in the outpatient clinic at [facility] by PT. AFO has been rec by PT; he presented without AFO. He was reportedly previously seen by speech and discharged d/t no concerns re : cognition, speech, and/or swallow. He was seen by [facility] OT. He is not using L UE sling and/or distal UE splint. He does have a home e-stim unit; he is actively stretching the L hand/digits into extension to maintain available range of motion. - Subjective Identification Type Name Observations Continued use of SPC w/ elongated base w/ gait. Self- ROM of UE includes elbow ext w / sh flex supine, elbow ext w/ sh flex sidelying on R, passive wrist ext; assist w/ passive wrist/digit ext, passive wrist ext w/ forearm supination/pronation, passive wrist RD/UD w/ wrist ext, distal UE WB seated at EOM w/ forearm in neutral/wrist/digit ext. *Monitor for pain w/ R sh abd. Patient Expectation/Goals Address L UE function Patient/Caregiver Compliance with Home Good Exercise Program - Objective Objective Measurements Please refer to below for progress towards meeting established OT goals: Short Term Goals 1. Kari will present with improved active range of motion of the left upper extremity, this will be evidenced by the followina. 0-35 degrees active L shoulder flexion. 05/18/23 = 0- 30 degrees active L sh flex ( initial 0-25 degrees) 1b. 0-55 degrees active L shoulder abduction. 05/18/23 = GOAL UPGRADED 1c. 0-10 degrees active L elbow extension. 2. Kari will present with improved functional abilities; 1a. This will be evidenced by Kari's ability to verbalize and/or demonstrate use of 2 to 3 different AE/modification /compensatory strategies in the home. 05/18/23 = Uses notebook for writing; uses AE cutting board equipped w/ 2 prongs, 'jarrett' , and suction cups positioned on bottom of board GOALS MET 0-45 degrees active L shoulder abduction. 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 Kari will be modified independent with execution of home exercise program utilizing provided written and visual instructions from therapist as needed. 05/18/23 = 50% met - Exercises 6 Descriptor Arm bike x 10 min. Intermittent phys assist for repositioning of R hand/R handed grasp. Increased reliance on R UE. Forwards direction. N/A 05/25/23 Arm Pulleys. Seated. x 10 minutes. Use of ball to support upright posture/ discourage trunk extension. 2 Descriptor Seated UE exercises. Passive distal UE stretch at EOM. Combo of sh ext, elbow ext, forearm supination, wrist ext, digit flex/ext; trunk flex -> sitting up straight w/ blocking at elbow. Passive distal UE stretch standing at EOM w/ use of cane . Combo of sh ext, elbow ext, forearm supination, wrist ext, digit flex w/ grasping of SPC bilaterally. Elbow flex/ext. 3 x 10. Elbow positioned at side by clinician. Elbow flex starting w/ elbow in 90 degrees flex - > end range of motion. 3 x 10. Passive ER. Seated row w/ sh abd. 3 x 10. N/A 06/16/23 *Wrist flex. 3 x 10. Elbow 90 degrees flex; forearm in neutral. Blocking provided by therapist. Use of 3 and 1/2- inch ball in palm of hand. *Wrist flex. 3 x 10. Elbow 90 degrees flex; forearm in full pronation. Blocking provided by therapist. Use of 3 and 1/2 -inch ball in palm of hand. Scapular row. 3 x 10. Assist w / full elbow ext. Use of 3 and 1/2-inch ball in palm of hand . Reaching across L -> R hip. 3 x 10. Positioning of L UE at L knee -> R hip. 3 x 10. Sh ext. Sh add. - Assessment Assessment of Improvement Revisited sh ext, elbow ext, forearm supination, wrist ext w/ use of SPC in standing. May want to further explore grasping abilities of the L hand to support movement of the upper extremity. Overall, good session. Given today's shortened treatment session, therapist did not obtain L UE range of motion therapeutic exercises. Recommend re-assessing L UE ROM at time of next treatment session. Continued outpatient OT is recommended to address L UE function, including but not limited to active range of motion, tone management, motor planning, awareness of L UE in space, education re: AE /modification/compensatory strategies to support functional abilities. Home Exercise Program 06/01/23 = Discussed combo sh ext, elbow ext, forearm sup, wrist ext seated w/ blocking of elbow to support elbow ext w/ ability to modify degree of stretch w/ trunk ext (moving from trunk flexion -> upright seated position). 04/26/23 = Discussed potential use of arm pulleys for home use; instructed in passive hor abd/ER stretch w/ use of TT w / trunk flex. Rec 2-3 times w/ hold of 20 - 30 sec+. 04/07/23 = Provided with square of dycem for home use to assist w/ L handed grasp or other functional activities ( as identified). Instructed in use of horizontal bar for weight bearing/tone management , motor re-training/grasp; Kari to identify alt option in the home to support carry- over. 03/17/23 = Rec completion of UE tone management exercises daily; passively stretching L UE out of typical jessica pattern daily (which would include daily execution of modified ER stretch supine, for 20 to 30+ sec, 2-3 repetitions based on response in today's session, w/ use of pillow support for L elbow w/ support of family member, and possible use of heat for 5-10 minutes as tolerated/w/ temperature skin being monitored given change in UE sensation). 03/09/23 = Motor planning sh add; rec use of TT 3 x 10 every other day or 3 x a week. - Plan Therapy Recommendations Continue with Current Program, Advance per Rehabilitation Protocol Modalities As Needed,As Prescribed Additional Types of Modalities Heat/Ice/Contrast/Ultrasound/E -stim
--- NOTE | 2023-06-28 15:30 | OT.OP.TRT ---
Visit Care Team Role Provider Type Kristian Kim MD Attending Provider Physician Family Provider Primary Care Provider Referring Provider Specialty: Family Practice Address: [address] [place] [address], [facility] Email: [email or web address] Occupational Therapy Treatment Note OT Outpatient Treatment Note - Adult Start: 03/02/23 09:26 Freq: Status: Active Protocol: Document 06/28/23 15:23 AMS (Rec: 06/28/23 15:30 AMS [id number]) OT Outpatient Adult Treatment Note Session Time Visit Start Time 13:05 Visit Stop Time 13:43 Visit Information Visit Number 11/18; 02/27 --> visit KX modifier Plan of Care Dates 05/04/23 - 07/27/23 Insurance Information Medicare Setting Treatment Setting Outpatient Care Visit Type Note Type Treatment Note General Information General Information Kari is a 67 year-old R hand dominant male referred to outpatient OT by PCP d/t L UE weakness secondary to stroke that occurred in June of 2022 . Medical history: Blood pressure, CHF, h/o falls, h/o R rotator cuff tear. Kari reported that he resides w/ his and son (Santana) who are available to assist him; they reside in a 4-story home (w/ bedroom and bath on 3rd floor of home) and he is retired. He has modified a brief case to assist w/ transporting of items which is equipped w/ cross body strap; use of countertops to transport items via sliding. ( +) 1-handed buttoning noted w/ R hand. Sleeps on R side since having stroke. completes meal prep in home. He presents ambulating w/ SPC (he progressed from manual w/c --> hemiwalker --> SPC). He has received home health PT and is currently being seen in the outpatient clinic at [facility] by PT. AFO has been rec by PT; he presented without AFO. He was reportedly previously seen by speech and discharged d/t no concerns re : cognition, speech, and/or swallow. He was seen by [facility] OT. He is not using L UE sling and/or distal UE splint. He does have a home e-stim unit; he is actively stretching the L hand/digits into extension to maintain available range of motion. - Subjective Identification Type Name Observations Use of SPC w/ elongated base w / gait. Report of difficulties sleeping. 06/16/23 = Self-ROM of UE includes elbow ext w/ sh flex supine, elbow ext w/ sh flex sidelying on R, passive wrist ext; assist w/ passive wrist/ digit ext, passive wrist ext w / forearm supination/pronation , passive wrist RD/UD w/ wrist ext, distal UE WB seated at EOM w/ forearm in neutral/ wrist/digit ext. Patient Expectation/Goals Address L UE function Patient/Caregiver Compliance with Home Good Exercise Program - Objective Objective Measurements Please refer to below for progress towards meeting established OT goals: Short Term Goals 1. Kari will present with improved active range of motion of the left upper extremity, this will be evidenced by the followina. 0-35 degrees active L shoulder flexion. 05/18/23 = 0- 30 degrees active L sh flex ( initial 0-25 degrees) 1b. 0-55 degrees active L shoulder abduction. 05/18/23 = GOAL UPGRADED 1c. 0-10 degrees active L elbow extension. 2. Kari will present with improved functional abilities; 1a. This will be evidenced by Kari's ability to verbalize and/or demonstrate use of 2 to 3 different AE/modification /compensatory strategies in the home. 05/18/23 = Uses notebook for writing; uses AE cutting board equipped w/ 2 prongs, 'jarrett' , and suction cups positioned on bottom of board GOALS MET 0-45 degrees active L shoulder abduction. *MET 05/18/23 vs initial 0-35 degrees L sh abd Fpc Goals 1. Kari will be modified independent with execution of home exercise program utilizing provided written and visual instructions from therapist as needed. 05/18/23 = 50% met - Exercises 6 Descriptor Arm bike x 10 min. Intermittent phys assist for repositioning of R hand/R handed grasp. Increased reliance on R UE. Forwards direction. N/A 05/25/23 Arm Pulleys. Seated. x 10 minutes. Use of ball to support upright posture/ discourage trunk extension. 2 Descriptor Seated UE exercises. Passive distal UE stretch at EOM. Combo of sh ext, elbow ext, forearm supination, wrist ext, digit flex/ext; trunk flex -> sitting up straight w/ blocking at elbow. Passive distal UE stretch standing at EOM w/ use of cane . Combo of sh ext, elbow ext, forearm supination, wrist ext, digit flex w/ grasping of SPC bilaterally. Elbow flex/ext. 3 x 10. Elbow positioned at side by clinician. Elbow flex starting w/ elbow in 90 degrees flex - > end range of motion. 3 x 10. Passive ER. Seated row w/ sh abd. 3 x 10. N/A 06/16/23 *Wrist flex. 3 x 10. Elbow 90 degrees flex; forearm in neutral. Blocking provided by therapist. Use of 3 and 1/2- inch ball in palm of hand. *Wrist flex. 3 x 10. Elbow 90 degrees flex; forearm in full pronation. Blocking provided by therapist. Use of 3 and 1/2 -inch ball in palm of hand. Scapular row. 3 x 10. Assist w / full elbow ext. Use of 3 and 1/2-inch ball in palm of hand . Reaching across L -> R hip. 3 x 10. Positioning of L UE at L knee -> R hip. 3 x 10. Sh ext. Sh add. - Assessment Assessment of Improvement Cont to work on maintaining L handed grasp w/ use of arm bike; intermittent assist given loss or loosening of senior account clerk; facilitation of elbow ext throughout use of arm bike in forwards direction. Cont to work on range of motion of L UE/weight bearing thru the L UE while seated at EOM. May want to further explore grasping abilities of the L hand to support movement of the upper extremity. Overall, good session. Given today's shortened treatment session, therapist did not obtain L UE range of motion therapeutic exercises. Recommend re-assessing L UE ROM at time of next treatment session. Continued outpatient OT is recommended to address L UE function, including but not limited to active range of motion, tone management, motor planning, awareness of L UE in space, education re: AE /modification/compensatory strategies to support functional abilities. Home Exercise Program 06/01/23 = Discussed combo sh ext, elbow ext, forearm sup, wrist ext seated w/ blocking of elbow to support elbow ext w/ ability to modify degree of stretch w/ trunk ext (moving from trunk flexion -> upright seated position). 04/26/23 = Discussed potential use of arm pulleys for home use; instructed in passive hor abd/ER stretch w/ use of TT w / trunk flex. Rec 2-3 times w/ hold of 20 - 30 sec+. 04/07/23 = Provided with square of dycem for home use to assist w/ L handed grasp or other functional activities ( as identified). Instructed in use of horizontal bar for weight bearing/tone management , motor re-training/grasp; Kari to identify alt option in the home to support carry- over. 03/17/23 = Rec completion of UE tone management exercises daily; passively stretching L UE out of typical jessica pattern daily (which would include daily execution of modified ER stretch supine, for 20 to 30+ sec, 2-3 repetitions based on response in today's session, w/ use of pillow support for L elbow w/ support of family member, and possible use of heat for 5-10 minutes as tolerated/w/ temperature skin being monitored given change in UE sensation). 03/09/23 = Motor planning sh add; rec use of TT 3 x 10 every other day or 3 x a week. - Plan Therapy Recommendations Continue with Current Program, Advance per Rehabilitation Protocol Modalities As Needed,As Prescribed Additional Types of Modalities Heat/Ice/Contrast/Ultrasound/E -stim
--- NOTE | 2023-07-05 15:55 | OT.OP.TRT ---
Visit Care Team Role Provider Type Kristian Kim MD Attending Provider Physician Family Provider Primary Care Provider Referring Provider Specialty: Family Practice Address: [address] [place] [address], [facility] Email: [email or web address] Occupational Therapy Treatment Note OT Outpatient Treatment Note - Adult Start: 03/02/23 09:26 Freq: Status: Active Protocol: Document 07/05/23 15:38 AMS (Rec: 07/05/23 15:55 AMS [id number]) OT Outpatient Adult Treatment Note Session Time Visit Start Time 14:30 Visit Stop Time 15:15 Visit Information Visit Number 12/19; 03/29 --> visit KX modifier Plan of Care Dates 05/04/23 - 07/27/23 Insurance Information Medicare Setting Treatment Setting Outpatient Care Visit Type Note Type Treatment Note General Information General Information Kari is a 67 year-old R hand dominant male referred to outpatient OT by PCP d/t L UE weakness secondary to stroke that occurred in June of 2022 . Medical history: Blood pressure, CHF, h/o falls, h/o R rotator cuff tear. Kari reported that he resides w/ his and son (Santana) who are available to assist him; they reside in a 4-story home (w/ bedroom and bath on 3rd floor of home) and he is retired. He has modified a brief case to assist w/ transporting of items which is equipped w/ cross body strap; use of countertops to transport items via sliding. ( +) 1-handed buttoning noted w/ R hand. Sleeps on R side since having stroke. completes meal prep in home. He presents ambulating w/ SPC (he progressed from manual w/c --> hemiwalker --> SPC). He has received home health PT and is currently being seen in the outpatient clinic at by PT. AFO has been rec by PT; he presented without AFO. He was reportedly previously seen by speech and discharged d/t no concerns re : cognition, speech, and/or swallow. He was seen by [facility] OT. He is not using L UE sling and/or distal UE splint. He does have a home e-stim unit; he is actively stretching the L hand/digits into extension to maintain available range of motion. - Subjective Identification Type Name Observations Use of SPC w/ elongated base w / gait. Kari indicated some frustration in re: lack of progress w/ the L UE. He reported that his daughter was at his home assisting him w/ organization this morning. He reports a change in life style since onset of stroke, including inability to return to skiin and/or actively riding motorcycles. 06/16/23 = Self-ROM of UE includes elbow ext w/ sh flex supine, elbow ext w/ sh flex sidelying on R, passive wrist ext; assist w/ passive wrist/ digit ext, passive wrist ext w / forearm supination/pronation , passive wrist RD/UD w/ wrist ext, distal UE WB seated at EOM w/ forearm in neutral/ wrist/digit ext. Patient Expectation/Goals Address L UE function Patient/Caregiver Compliance with Home Good Exercise Program - Objective Objective Measurements Please refer to below for progress towards meeting established OT goals: Short Term Goals 1. Kari will present with improved active range of motion of the left upper extremity, this will be evidenced by the followina. 0-35 degrees active L shoulder flexion. 05/18/23 = 0- 30 degrees active L sh flex ( initial 0-25 degrees) 1b. 0-55 degrees active L shoulder abduction. 05/18/23 = GOAL UPGRADED 1c. 0-10 degrees active L elbow extension. 2. Kari will present with improved functional abilities; 1a. This will be evidenced by Kari's ability to verbalize and/or demonstrate use of 2 to 3 different AE/modification /compensatory strategies in the home. 05/18/23 = Uses notebook for writing; uses AE cutting board equipped w/ 2 prongs, 'jarrett' , and suction cups positioned on bottom of board GOALS MET 0-45 degrees active L shoulder abduction. *MET 05/18/23 vs initial 0-35 degrees L sh abd Folding Machine Setter Goals 1. Kari will be modified independent with execution of home exercise program utilizing provided written and visual instructions from therapist as needed. 05/18/23 = 50% met - Exercises 8 Descriptor Seated cane exercises. B seated row w/ active elbow ext w/ visual end point knees. 2 x 10. Elbow flex/ext. forearm pronation. 2 x 10. B sh flexion. 2 x 10. L ER; min phys assist to maintain lamp assembler. 2 x 10. Sh hor abd/add. 2 x 10. L sh abd. 2 x 10. 7 Descriptor PROM Passive hook fist x 2, x 30 sec hold. Passive distal UE stretch at EOM. Combo of sh ext, elbow ext, forearm supination, wrist ext, digit flex/ext x 15 sec. Ceased secondary to c/o pain/ discomfort. 6 Descriptor N/A 05/25/23 Arm Pulleys. Seated. x 10 minutes. Use of ball to support upright posture/ discourage trunk extension. 5 Descriptor Tone management/UE neuro retraining. Use of horizontal bar. Dycem assist for L hand grasp. Max phys assist to grasping horizontal bar and release horizontal bar. L <-> R weight shift. 2 x 10. Min phys assist to facilitate elbow ext. Elbow ext, leaning slightly backwards and pulling self forwards. 2 x 10. Sh flex, combined w/ elbow ext , forearm pronation and wrist in slight extension. Pulsing grasp (50% of force of lamp assembler). 2 x 10. Completed sitting. Positioning of both hands on horizontal bar, hands shoulder width apart. Pulling up into standing <-> maintaining grasp w/ sitting/standing B UEs. 1 x 7. Positioning of both hands on horizontal bar, hands shoulder width apart, pulling up into standing B hands, returning to sitting w/ L UE/L hand positioned on bar only. 1 x 5. Modified dip w/ use of bar L UE. x 10 minutes. Use of e- stim. 4 Descriptor Arm bike x 10 min. Intermittent phys assist for repositioning of R hand/R handed grasp. Increased reliance on R UE. Forwards direction. 3 Descriptor Tone management/functional weight bearing. N/A 04/07/23 EOM. Trunk flexion. 1 x 10. Use of dycem. EOM. Upright sitting. L <-> R weight shift. 1 x 10. 2 Descriptor Seated UE exercises. Red flex bar. Pronation. Modified supination. Sustained lamp assembler w/ R handed lamp assembler. 2 x 10 each exercise. N/A 07/05/23 Seated row w/ sh abd. 3 x 10. *Wrist flex. 3 x 10. Elbow 90 degrees flex; forearm in neutral. Blocking provided by therapist. Use of 3 and 1/2- inch ball in palm of hand. *Wrist flex. 3 x 10. Elbow 90 degrees flex; forearm in full pronation. Blocking provided by therapist. Use of 3 and 1/2 -inch ball in palm of hand. Scapular row. 3 x 10. Assist w / full elbow ext. Use of 3 and 1/2-inch ball in palm of hand . Reaching across L -> R hip. 3 x 10. Positioning of L UE at L knee -> R hip. 3 x 10. Sh ext. Sh add. 1 Descriptor Supine UE exercises. Sh flex. 1 x 10 passive. 2 x 10. Min phys assist to facilitate. Sh abd. 2 x 10. Min phys assist to facilitate to 90 degrees sh abd. Passive ER by clinician. 2 x 10. Passive hor abd/ER by clinician. 2 x 10. Wrist extension. Muscle tapping to facilitate. Elbow in 90 degrees flexion. 2 x 10. N/A 04/07/23 Sh ext. 3 x 10. Min phys assist to facilitate. 1 x 10 focus on controlled descent. CGA to min phys assist. Sh ext w/ handle. 2 x 10. TB #1. CGA to min phys assist. Elbow flex. 3 x 10. Clinician assisting 90 - 110+ degrees to obtain full elbow ext; assist to obtain initial elbow ext. Sh medium-sized circles. 1 x 10 in both directions. CGA to min phys assist to support motor control at level. PNF diagonal. 2 x 10. L hip -> R shoulder. Max phys assist. Sh add/hor abd. Limited range of motion w/ abd. 2 x 10. - Assessment Assessment of Improvement Cont to work on maintaining L handed grasp w/ use of arm bike; intermittent assist given loss or loosening of lamp assembler; facilitation of elbow ext throughout use of arm bike in forwards direction. Cont to work on range of motion of L UE/weight bearing thru the L UE while seated at EOM for proprioceptive input for joint sense. Trialed various resistance flex bars available in clinic as an option for working on lamp assembler; Kari trialed yellow, red, and the blue flex bars; he indicated that the red flex bar was a good resistance. Trialed various exercises w/ forearm in different positions, neutral vs pronated vs supinated. Rec monitoring for skin breakdown given response to sustained use of wood grab bar in previous treatment sessions; *rec trialing different methods to reduce abrasiveness. Overall, good session. Continued outpatient OT is recommended to address L UE function, including but not limited to active range of motion, tone management, motor planning, awareness of L UE in space, education re: AE/ modification/compensatory strategies to support functional abilities. Home Exercise Program 06/01/23 = Discussed combo sh ext, elbow ext, forearm sup, wrist ext seated w/ blocking of elbow to support elbow ext w/ ability to modify degree of stretch w/ trunk ext (moving from trunk flexion -> upright seated position). 04/26/23 = Discussed potential use of arm pulleys for home use; instructed in passive hor abd/ER stretch w/ use of TT w / trunk flex. Rec 2-3 times w/ hold of 20 - 30 sec+. 04/07/23 = Provided with square of dycem for home use to assist w/ L handed grasp or other functional activities ( as identified). Instructed in use of horizontal bar for weight bearing/tone management , motor re-training/grasp; Kari to identify alt option in the home to support carry- over. 03/17/23 = Rec completion of UE tone management exercises daily; passively stretching L UE out of typical jessica pattern daily (which would include daily execution of modified ER stretch supine, for 20 to 30+ sec, 2-3 repetitions based on response in today's session, w/ use of pillow support for L elbow w/ support of family member, and possible use of heat for 5-10 minutes as tolerated/w/ temperature skin being monitored given change in UE sensation). 03/09/23 = Motor planning sh add; rec use of TT 3 x 10 every other day or 3 x a week. - Plan Therapy Recommendations Continue with Current Program, Advance per Rehabilitation Protocol Additional Therapy Recommendations Complete POC at time of next session Modalities As Needed,As Prescribed Additional Types of Modalities Heat/Ice/Contrast/Ultrasound/E -stim
--- NOTE | 2023-07-20 11:51 | OT.OP.TRT ---
Visit Care Team Role Provider Type Kristian Kim MD Attending Provider Physician Family Provider Primary Care Provider Referring Provider Specialty: Family Practice Address: [address] [place] [address], [facility] Email: [email or web address] Occupational Therapy Treatment Note OT Outpatient Treatment Note - Adult Start: 03/02/23 09:26 Freq: Status: Active Protocol: Document 07/20/23 11:49 AMS (Rec: 07/20/23 11:51 AMS [id number]) OT Outpatient Adult Treatment Note - Subjective Observations Kari did not attend his 11: 15 a.m. appointment; contacted via [employer] [facility] [employer] and reminded of upcoming scheduled appointment w/ outpatient Kurtis MULLIGAN, on at 2:30 p.m. Therapist to follow-up as appropriate. - - - -
--- NOTE | 2023-07-26 16:20 | OT.OPPOC ---
Physical, Occupational & Speech Therapy At [facility] Kari Figueroa I [id number] Visit Care Team Role Provider Type Kristian Kim MD Attending Provider Physician Family Provider Primary Care Provider Referring Provider Address: [address] [place] [address], [id number] Occupational Therapy Plan of Care OT Outpatient Adult Evaluation Start: 03/02/23 09:26 Freq: Status: Active Protocol: Document 03/01/23 16:00 AMS (Rec: 03/02/23 10:04 AMS [id number]) General Information - Adult Visit Information Visit Number 04/20; 04/29 --> visit KX Modifier Plan of Care Dates 03/01/23 - 05/24/23 Insurance Information Medicare Session Time Visit Start Time 08:45 Visit Stop Time 09:40 Total Visit Minutes 55 Goals Treatment Treatment Tone management/wegiht bearing /weight shifting. Short Term Goals Short Term Goals 1. Kari will present with improved active range of motion of the left upper extremity, this will be evidenced by the followina. 35 degrees active L shoulder flexion. 1b. 45 degrees active L shoulder abduction. 1c. 10 degrees active L elbow extension. 2. Kari will present with improved functional abilities; this will be evidenced by ability to verbalize and/or demonstrate use of 2 to 3 different AE/ modification/compensatory strategies in the home. 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 Kari will be modified independent with execution of home exercise program utilizing provided written and visual instructions from therapist as needed. Assessment/Plan Assessment Treatment Assessment Kari is a 67 year-old R hand dominant male referred to outpatient OT by PCP d/t L UE weakness secondary to stroke that occurred in June of 2022 . Medical history: Blood pressure, CHF, h/o falls, h/o R rotator cuff tear. Kari reported that he resides w/ his and son (Santana) who are available to assist him; they reside in a 4-story home (w/ bedroom and bath on 3rd floor of home) and he is retired. He has modified a brief case to assist w/ transporting of items which is equipped w/ cross body strap; use of countertops to transport items via sliding. ( +) 1-handed buttoning noted w/ R hand. Sleeps on R side since having stroke. completes meal prep in home. He presents ambulating w/ SPC (he progressed from manual w/c --> hemiwalker --> SPC). He has received home health PT and is currently being seen in the outpatient clinic at [facility] by PT. AFO has been rec by PT; he presented without AFO. He was reportedly previously seen by speech and discharged d/t no concerns re : cognition, speech, and/or swallow. He was seen by [facility] OT. He is not using L UE sling and/or distal UE splint. He does have a home e-stim unit; he is actively stretching the L hand/digits into extension to maintain available range of motion. Patient Goals: Address L UE function. Pain Assessment Grid completed ; no pain/discomfort indicated . Denial of any changes in sensation of L UE. QuickDASH UE Outcome Measure Score = 20. 45; QuickDASH Sports/ Performing Arts Module Score = 100.00 (hobbies included pickleball, scuba diving, playing the CohBar, riding motorcycles). (+) mild L g/h/sh subluxation. (+) active L sh elevation; (+) L scapular retraction noted w/ L sh elevation. Goniometer measurements were completed in sitting; 25 degrees active L sh flexion; 20 degrees active L sh extension; 35 degrees active L sh abd; 95 degrees active L elbow flexion; full active L forearm pronation; (- ) active forearm supination; ( -) active L elbow ext; 25 degrees active L wrist flex; ( -) active L wrist ext; full active L sh IR; (-) active L sh ER. 20.0# of force L financial agent w / dynamometer II testing w/ elbow in 90 degrees flexion. ( +) flexor tone pattern/typical UE jessica pattern observed w/ active movement. Good weight shifting L <-> R seated at EOM ; able to maintain both feet on floor w/ trunk ext. Outpatient OT is recommended to address L UE function, including but not limited to active range of motion, tone management, motor planning, awareness of L UE in space, education re: AE/modification/ compensatory strategies to support functional abilities. Plan Length of treatment (weeks) 12 Plan of Care Start Date 03/01/23 Plan of Care End Date 05/24/23 Treatment Frequency Once a Week Therapeutic Contents Active Range of Motion, Adaptive Equipment Education, Functional Activities,Home Exercise Program,Joint Protection,Manual Therapy, Education,Neurodevelopment Treatment,Neuromuscular Re- Education,Self-Care,Stretching /Flexibility Activities, Therapeutic Activities, Therapeutic Exercises, Modalities Modalities As Needed,As Prescribed Additional Types of Modalities Heat/Ice/Contrast Baths/ Ultrasound/E-stim Functional Wrist/Hand Scan Hand Side Sensory Assessment Sensory Profile2 OT Outpatient Treatment Note - Adult Start: 03/02/23 09:26 Freq: Status: Active Protocol: Document 07/26/23 16:00 AMS (Rec: 07/26/23 16:19 AMS [id number]) OT Outpatient Adult Treatment Note Session Time Visit Start Time 14:30 Visit Stop Time 15:15 Visit Information Visit Number 04/20; --> visit KX modifier Plan of Care Dates 07/26/23 - 10/04/23 Insurance Information Medicare Setting Treatment Setting Outpatient Care Visit Type Note Type Progress Note General Information General Information Kari is a 67 year-old R hand dominant male referred to outpatient OT by PCP d/t L UE weakness secondary to stroke that occurred in June of 2022 . Medical history: Blood pressure, CHF, h/o falls, h/o R rotator cuff tear. Kari reported that he resides w/ his and son (Santana) who are available to assist him; they reside in a 4-story home (w/ bedroom and bath on 3rd floor of home) and he is retired. He has modified a brief case to assist w/ transporting of items which is equipped w/ cross body strap; use of countertops to transport items via sliding. ( +) 1-handed buttoning noted w/ R hand. Sleeps on R side since having stroke. completes meal prep in home. He presents ambulating w/ SPC (he progressed from manual w/c --> hemiwalker --> SPC). He has received home health PT and is currently being seen in the outpatient clinic at [facility] by PT. AFO has been rec by PT; he presented without AFO. He was reportedly previously seen by speech and discharged d/t no concerns re : cognition, speech, and/or swallow. He was seen by [facility] OT. He is not using L UE sling and/or distal UE splint. He does have a home e-stim unit; he is actively stretching the L hand/digits into extension to maintain available range of motion. - Subjective Observations Kari did not attend his 11: 15 a.m. appointment; contacted via [employer] and reminded of upcoming scheduled appointment w/ outpatient [facility], on at 2:30 p.m. Therapist to follow-up as appropriate. - Objective Objective Measurements Please refer to below for progress towards meeting established OT goals: 07/26/23 = 40.0# of force L financial agent w/ elbow 90 degrees flex vs initial 20.0# of force. 20 degrees active L sh ext vs initial 20 degrees. 03/01/23 = (+) mild L g/h/sh subluxation. (+) active L sh elevation; (+) L scapular retraction noted w/ L sh elevation. Goniometer measurements were completed in sitting; 25 degrees active L sh flexion; 20 degrees active L sh extension; 35 degrees active L sh abd; 95 degrees active L elbow flexion; full active L forearm pronation; (- ) active forearm supination; ( -) active L elbow ext; 25 degrees active L wrist flex; ( -) active L wrist ext; full active L sh IR; (-) active L sh ER. 20.0# of force L financial agent w / dynamometer II testing w/ elbow in 90 degrees flexion. Short Term Goals 1. Kari will present with improved active range of motion of the left upper extremity, this will be evidenced by the followina. 0-40 degrees active L shoulder flexion. 07/26/23 = GOAL UPGRADED 1b. 0-60 degrees active L shoulder abduction. 07/26/23 = GOAL UPGRADED 1c. 0-10 degrees active L elbow extension. 2. Kari will present with improved functional abilities: 1a. This will be evidenced by Kari's ability to verbalize and/or demonstrate use of 2 to 3 different AE/modification /compensatory strategies in the home. 05/18/23 = Uses notebook for writing; uses AE cutting board equipped w/ 2 prongs, 'jarrett' , and suction cups positioned on bottom of board GOALS MET 0-35 degrees active L shoulder flexion. *MET 4/16/25 vs initial 0-25 degrees L sh flex 0-55 degrees active L shoulder abduction. *MET 07/26/23 vs initial 0-35 degrees L sh abd 0-45 degrees active L shoulder abduction. *MET 05/18/23 vs initial 0-35 degrees L sh abd Amusement Machine Mechanic Goals 1. Kari will be modified independent with execution of home exercise program utilizing provided written and visual instructions from therapist as needed. 07/26/23 = 50% met - Exercises 9 Descriptor L UE motor planning. L sh hor abd. Use of mat. Assist to facilitate elbow ext . 2 x 10. 8 Descriptor Seated cane exercises. B seated row w/ active elbow ext w/ visual end point knees. 2 x 10. Elbow flex/ext. forearm pronation. 2 x 10. B sh flexion. 2 x 10. L ER; min phys assist to maintain financial agent. 2 x 10. Sh hor abd/add. 2 x 10. L sh abd. 2 x 10. 7 Descriptor PROM Passive hook fist x 2, x 30 sec hold. Passive distal UE stretch at EOM. Combo of sh ext, elbow ext, forearm supination, wrist ext, digit flex/ext x 15 sec. Ceased secondary to c/o pain/ discomfort. 6 Descriptor Arm Pulleys. Seated. x 10 minutes. *Rec use of ball to support upright posture/ discourage trunk extension. 5 Descriptor Tone management/UE neuro retraining. Use of horizontal bar. Dycem assist for L hand grasp. Max phys assist to grasping horizontal bar and release horizontal bar. L <-> R weight shift. 2 x 10. Min phys assist to facilitate elbow ext. Elbow ext, leaning slightly backwards and pulling self forwards. 2 x 10. Sh flex, combined w/ elbow ext , forearm pronation and wrist in slight extension. Pulsing grasp (50% of force of financial agent). 2 x 10. Completed sitting. Positioning of both hands on horizontal bar, hands shoulder width apart. Pulling up into standing <-> maintaining grasp w/ sitting/standing B UEs. 1 x 7. Positioning of both hands on horizontal bar, hands shoulder width apart, pulling up into standing B hands, returning to sitting w/ L UE/L hand positioned on bar only. 1 x 5. Modified dip w/ use of bar L UE. x 10 minutes. Use of e- stim. 4 Descriptor Arm bike x 10 min. Intermittent phys assist for repositioning of R hand/R handed grasp. Increased reliance on R UE. Forwards direction. 3 Descriptor Tone management/functional weight bearing. N/A 04/07/23 EOM. Trunk flexion. 1 x 10. Use of dycem. EOM. Upright sitting. L <-> R weight shift. 1 x 10. 2 Descriptor Seated UE exercises. Red flex bar. Pronation. Sustained financial agent w/ R handed financial agent. 2 x 10 each exercise. PNF diagonal. L knee --> R shoulder; facilitated by clinician near end range. Lateral sunshine pinch. TB #4. 1 x 10. N/A 07/05/23 Seated row w/ sh abd. 3 x 10. *Wrist flex. 3 x 10. Elbow 90 degrees flex; forearm in neutral. Blocking provided by therapist. Use of 3 and 1/2- inch ball in palm of hand. *Wrist flex. 3 x 10. Elbow 90 degrees flex; forearm in full pronation. Blocking provided by therapist. Use of 3 and 1/2 -inch ball in palm of hand. Scapular row. 3 x 10. Assist w / full elbow ext. Use of 3 and 1/2-inch ball in palm of hand . Reaching across L -> R hip. 3 x 10. Positioning of L UE at L knee -> R hip. 3 x 10. Sh ext. Sh add. 1 Descriptor Supine UE exercises. Sh flex. 1 x 10 passive. 2 x 10. Min phys assist to facilitate. Sh abd. 2 x 10. Min phys assist to facilitate to 90 degrees sh abd. Passive ER by clinician. 2 x 10. Passive hor abd/ER by clinician. 2 x 10. Wrist extension. Muscle tapping to facilitate. Elbow in 90 degrees flexion. 2 x 10. N/A 04/07/23 Sh ext. 3 x 10. Min phys assist to facilitate. 1 x 10 focus on controlled descent. CGA to min phys assist. Sh ext w/ handle. 2 x 10. TB #1. CGA to min phys assist. Elbow flex. 3 x 10. Clinician assisting 90 - 110+ degrees to obtain full elbow ext; assist to obtain initial elbow ext. Sh medium-sized circles. 1 x 10 in both directions. CGA to min phys assist to support motor control at sh level. PNF diagonal. 2 x 10. L hip -> R shoulder. Max phys assist. Sh add/hor abd. Limited range of motion w/ abd. 2 x 10. - Assessment Assessment of Improvement Kari has made progress since time of previous plan of care /progress note; this is evidenced by Kari meeting some established short term goals, as well as demonstrated gains w/ financial agent strength w/ dynamometer II financial agent strength testing. Goals have been upgraded. Clinician has also introduced red flexbar as option for distal L UE strengthening, as well as financial agent strengthening. Rec cont to monitor for skin breakdown with red flexbar given response to sustained use of wood grab bar in previous treatment sessions; *rec considering different approaches to reduce abrasiveness with use of red flexbar. Clinician has noted improved flexibility/decreased resistance to elbow flexion; thus, Kari has been completing this exercise in the home w/ or without assistance. Returned to PNF diagonal L knee -> R shoulder, as well as provided passive range of motion into this diagonal. Also trialed lateral sunshine pinch strengthening w/ TB #4 which Kari did quite well with. Continued outpatient OT is recommended to address L UE function, including but not limited to active range of motion, tone management, motor planning, awareness of L UE in space, education re: AE/modification/ compensatory strategies to support functional abilities. Home Exercise Program 06/01/23 = Discussed combo sh ext, elbow ext, forearm sup, wrist ext seated w/ blocking of elbow to support elbow ext w/ ability to modify degree of stretch w/ trunk ext (moving from trunk flexion -> upright seated position). 04/26/23 = Discussed potential use of arm pulleys for home use; instructed in passive hor abd/ER stretch w/ use of TT w / trunk flex. Rec 2-3 times w/ hold of 20 - 30 sec+. 04/07/23 = Provided with square of dycem for home use to assist w/ L handed grasp or other functional activities ( as identified). Instructed in use of horizontal bar for weight bearing/tone management , motor re-training/grasp; Kari to identify alt option in the home to support carry- over. 03/17/23 = Rec completion of UE tone management exercises daily; passively stretching L UE out of typical jessica pattern daily (which would include daily execution of modified ER stretch supine, for 20 to 30+ sec, 2-3 repetitions based on response in today's session, w/ use of pillow support for L elbow w/ support of family member, and possible use of heat for 5-10 minutes as tolerated/w/ temperature skin being monitored given change in UE sensation). 03/09/23 = Motor planning sh add; rec use of TT 3 x 10 every other day or 3 x a week. - Plan Therapy Recommendations Continue with Current Program, Advance per Rehabilitation Protocol Comment 10 weeks Frequency of Treatment Once a Week Therapeutic Contents Active Range of Motion, Adaptive Equipment Education, Client Education,Functional Activities,Home Exercise Program,Joint Protection, Manual Therapy,Education, Neurodevelopment Treatment, Neuromuscular Re-Education, Self-Care,Stretching/ Flexibility Activities, Therapeutic Activities, Therapeutic Exercises, Modalities Modalities As Needed,As Prescribed Additional Types of Modalities Heat/Ice/Contrast/Ultrasound/E -stim Electronically Signed by: Juliet Delatorre OT 07/26/23 [id number] If you are in agreement with this Plan of Care, please return a signed and dated copy. I have reviewed this Plan of Care and certify that the skilled therapy services above are required to meet the patient?s needs. Physician Signature Date Printed Name and Credentials Clinical Instructor Signature Printed Name and Credentials
--- NOTE | 2023-08-05 15:37 | OT.OP.TRT ---
Visit Care Team Role Provider Type Kristian Kim MD Attending Provider Physician Family Provider Primary Care Provider Referring Provider Specialty: Family Practice Address: [address] [place] [address], [facility] Email: [email or web address] Occupational Therapy Treatment Note OT Outpatient Treatment Note - Adult Start: 03/02/23 09:26 Freq: Status: Active Protocol: Document 08/05/23 15:25 AMS (Rec: 08/05/23 15:37 AMS [id number]) OT Outpatient Adult Treatment Note Session Time Visit Start Time 13:45 Visit Stop Time 14:30 Visit Information Visit Number 05/21; --> visit KX modifier Plan of Care Dates 07/26/23 - 10/04/23 Insurance Information Medicare Setting Treatment Setting Outpatient Care Visit Type Note Type Treatment Note General Information General Information Kari is a 67 year-old R hand dominant male referred to outpatient OT by PCP d/t L UE weakness secondary to stroke that occurred in June of 2022 . Medical history: Blood pressure, CHF, h/o falls, h/o R rotator cuff tear. Kari reported that he resides w/ his and son (Santana) who are available to assist him; they reside in a 4-story home (w/ bedroom and bath on 3rd floor of home) and he is retired. He has modified a brief case to assist w/ transporting of items which is equipped w/ cross body strap; use of countertops to transport items via sliding. ( +) 1-handed buttoning noted w/ R hand. Sleeps on R side since having stroke. completes meal prep in home. He presents ambulating w/ SPC (he progressed from manual w/c --> hemiwalker --> SPC). He has received home health PT and is currently being seen in the outpatient clinic at [facility] by PT. AFO has been rec by PT; he presented without AFO. He was reportedly previously seen by speech and discharged d/t no concerns re : cognition, speech, and/or swallow. He was seen by [facility] OT. He is not using L UE sling and/or distal UE splint. He does have a home e-stim unit; he is actively stretching the L hand/digits into extension to maintain available range of motion. - Subjective Observations Reported difficulties with actively gripping while extending w/ use of arm bike. - Objective Objective Measurements Please refer to below for progress towards meeting established OT goals: 07/26/23 = 40.0# of force L legal services professional w/ elbow 90 degrees flex vs initial 20.0# of force. 20 degrees active L sh ext vs initial 20 degrees. 03/01/23 = (+) mild L g/h/sh subluxation. (+) active L sh elevation; (+) L scapular retraction noted w/ L sh elevation. Goniometer measurements were completed in sitting; 25 degrees active L sh flexion; 20 degrees active L sh extension; 35 degrees active L sh abd; 95 degrees active L elbow flexion; full active L forearm pronation; (- ) active forearm supination; ( -) active L elbow ext; 25 degrees active L wrist flex; ( -) active L wrist ext; full active L sh IR; (-) active L sh ER. 20.0# of force L legal services professional w / dynamometer II testing w/ elbow in 90 degrees flexion. Short Term Goals 1. Kari will present with improved active range of motion of the left upper extremity, this will be evidenced by the followina. 0-40 degrees active L shoulder flexion. 07/26/23 = GOAL UPGRADED 1b. 0-60 degrees active L shoulder abduction. 07/26/23 = GOAL UPGRADED 1c. 0-10 degrees active L elbow extension. 2. Kari will present with improved functional abilities: 1a. This will be evidenced by Kari's ability to verbalize and/or demonstrate use of 2 to 3 different AE/modification /compensatory strategies in the home. 05/18/23 = Uses notebook for writing; uses AE cutting board equipped w/ 2 prongs, 'jarrett' , and suction cups positioned on bottom of board GOALS MET 0-35 degrees active L shoulder flexion. *MET 07/25/24 vs initial 0-25 degrees L sh flex 0-55 degrees active L shoulder abduction. *MET 07/26/23 vs initial 0-35 degrees L sh abd 0-45 degrees active L shoulder abduction. *MET 05/18/23 vs initial 0-35 degrees L sh abd [facility] Goals 1. Kari will be modified independent with execution of home exercise program utilizing provided written and visual instructions from therapist as needed. 07/26/23 = 50% met - Exercises 9 Descriptor L UE motor planning. L sh hor abd. Use of mat. Assist to facilitate elbow ext . 2 x 10. 8 Descriptor Seated cane exercises. B seated row w/ active elbow ext w/ visual end point knees. 2 x 10. B sh flexion. 2 x 10. Use of bolster/inclined surface. Trunk rotation. 2 x 10. N/A 08/05/23 L ER; min phys assist to maintain legal services professional. 2 x 10. Sh hor abd/add. 2 x 10. L sh abd. 2 x 10. 7 Descriptor PROM Passive hook fist x 2, x 30 sec hold. Passive distal UE stretch at EOM. Combo of sh ext, elbow ext, forearm supination, wrist ext, digit flex/ext x 15 sec. Ceased secondary to c/o pain/ discomfort. 6 Descriptor Arm Pulleys. Seated. x 10 minutes. *Rec use of ball to support upright posture/ discourage trunk extension. 5 Descriptor Tone management/UE neuro retraining. Use of horizontal bar. Dycem assist for L hand grasp. Max phys assist to grasping horizontal bar and release horizontal bar. L <-> R weight shift. 2 x 10. Min phys assist to facilitate elbow ext. Elbow ext, leaning slightly backwards and pulling self forwards. 2 x 10. Sh flex, combined w/ elbow ext , forearm pronation and wrist in slight extension. Pulsing grasp (50% of force of legal services professional). 2 x 10. Completed sitting. Positioning of both hands on horizontal bar, hands shoulder width apart. Pulling up into standing <-> maintaining grasp w/ sitting/standing B UEs. 1 x 7. Positioning of both hands on horizontal bar, hands shoulder width apart, pulling up into standing B hands, returning to sitting w/ L UE/L hand positioned on bar only. 1 x 5. Modified dip w/ use of bar L UE. x 10 minutes. Use of e- stim. 4 Descriptor Arm bike x 5 min. Intermittent phys assist for repositioning of R hand/R handed grasp. Increased reliance on R UE. Forwards direction. 3 Descriptor Tone management/functional weight bearing. N/A 04/07/23 EOM. Trunk flexion. 1 x 10. Use of dycem. EOM. Upright sitting. L <-> R weight shift. 1 x 10. 2 Descriptor Seated UE exercises. Red flex bar. Pronation. Sustained legal services professional w/ R handed legal services professional. 2 x 10 each exercise. PNF diagonal. L knee --> R shoulder; facilitated by clinician near end range. 2 x 10. Scapular row. Assist w/ full elbow ext. 3 x 10. Elbow flex. 90 degrees flex -> end range. 2 x 10. Elbow flex . Slightly > 90 degrees flex - > end range. Wrist flex. 3 x 10. Elbow 90 degrees flex; forearm in neutral. Blocking provided by therapist. Focus on wrist flex -> then relaxation. Forearm supination. 3 x 10. Assist with facilitation. Muscle tapping to facilitate wrist extension. 3 x 10. N/A 07/05/23 Lateral sunshine pinch. TB #4. 1 x 10. Seated row w/ sh abd. 3 x 10. *Wrist flex. 3 x 10. Elbow 90 degrees flex; forearm in full pronation. Blocking provided by therapist. Use of 3 and 1/2 -inch ball in palm of hand. Reaching across L -> R hip. 3 x 10. Positioning of L UE at L knee -> R hip. 3 x 10. Sh ext. Sh add. - Assessment Assessment of Improvement Revisited cane exercises w/ inclusion of half bolster for incline (for sh flex/elbow ext ); use of pillow case to aid w / sliding cane/protect fingers /hand. Motor breakdown w/ wrist flex -> then relax. Incorporated tone management and passive range of motion between exercises w/ cont focus on coordination of breath w/ execution of exercises. Kari cont to verbalize difficulty w/ executing motor plan out of typical jessica pattern w/ sh add , IR, forearm pronation, wrist flex, and tight legal services professional. Rec use of pulleys vs moving in and out of elbow flex w/ arm bike. Rec cont inclusion of slanted /diagonal surfaces and tone management/passive range of motion exercises. Continued outpatient OT is recommended to address L UE function, including but not limited to active range of motion, tone management, motor planning, awareness of L UE in space, education re: AE/ modification/compensatory strategies to support functional abilities. Home Exercise Program 06/01/23 = Discussed combo sh ext, elbow ext, forearm sup, wrist ext seated w/ blocking of elbow to support elbow ext w/ ability to modify degree of stretch w/ trunk ext (moving from trunk flexion -> upright seated position). 04/26/23 = Discussed potential use of arm pulleys for home use; instructed in passive hor abd/ER stretch w/ use of TT w / trunk flex. Rec 2-3 times w/ hold of 20 - 30 sec+. 04/07/23 = Provided with square of dycem for home use to assist w/ L handed grasp or other functional activities ( as identified). Instructed in use of horizontal bar for weight bearing/tone management , motor re-training/grasp; Kari to identify alt option in the home to support carry- over. 03/17/23 = Rec completion of UE tone management exercises daily; passively stretching L UE out of typical jessica pattern daily (which would include daily execution of modified ER stretch supine, for 20 to 30+ sec, 2-3 repetitions based on response in today's session, w/ use of pillow support for L elbow w/ support of family member, and possible use of heat for 5-10 minutes as tolerated/w/ temperature skin being monitored given change in UE sensation). 03/09/23 = Motor planning sh add; rec use of TT 3 x 10 every other day or 3 x a week. - Plan Therapy Recommendations Advance per Rehabilitation Protocol Therapeutic Contents Modalities Modalities As Needed,As Prescribed Additional Types of Modalities Heat/Ice/Contrast/Ultrasound/E -stim
--- NOTE | 2023-08-08 15:51 | OT.OP.TRT ---
Visit Care Team Role Provider Type Kristian Kim MD Attending Provider Physician Family Provider Primary Care Provider Referring Provider Specialty: Family Practice Address: [address] [place] [address], [facility] Email: [email or web address] Occupational Therapy Treatment Note OT Outpatient Treatment Note - Adult Start: 03/02/23 09:26 Freq: Status: Active Protocol: Document 08/08/23 15:43 AMS (Rec: 08/08/23 15:51 AMS [id number]) OT Outpatient Adult Treatment Note Session Time Visit Start Time 13:55 Visit Stop Time 14:30 Visit Information Visit Number 06/18; --> visit KX modifier Plan of Care Dates 07/26/23 - 10/04/23 Insurance Information Medicare Setting Treatment Setting Outpatient Care Visit Type Note Type Treatment Note General Information General Information Kari is a 67 year-old R hand dominant male referred to outpatient OT by PCP d/t L UE weakness secondary to stroke that occurred in June of 2022 . Medical history: Blood pressure, CHF, h/o falls, h/o R rotator cuff tear. Kari reported that he resides w/ his and son (Santana) who are available to assist him; they reside in a 4-story home (w/ bedroom and bath on 3rd floor of home) and he is retired. He has modified a brief case to assist w/ transporting of items which is equipped w/ cross body strap; use of countertops to transport items via sliding. ( +) 1-handed buttoning noted w/ R hand. Sleeps on R side since having stroke. completes meal prep in home. He presents ambulating w/ SPC (he progressed from manual w/c --> hemiwalker --> SPC). He has received home health PT and is currently being seen in the outpatient clinic at [facility] by PT. AFO has been rec by PT; he presented without AFO. He was reportedly previously seen by speech and discharged d/t no concerns re : cognition, speech, and/or swallow. He was seen by [facility] OT. He is not using L UE sling and/or distal UE splint. He does have a home e-stim unit; he is actively stretching the L hand/digits into extension to maintain available range of motion. - Subjective Observations Reported difficulties with moving affected UE out of typical jessica pattern; difficulties with grasp and release, extending elbow fully . 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 20 degrees active L sh ext vs initial 20 degrees. 03/01/23 = (+) mild L g/h/sh subluxation. (+) active L sh elevation; (+) L scapular retraction noted w/ L sh elevation. Goniometer measurements were completed in sitting; 25 degrees active L sh flexion; 20 degrees active L sh extension; 35 degrees active L sh abd; 95 degrees active L elbow flexion; full active L forearm pronation; (- ) active forearm supination; ( -) active L elbow ext; 25 degrees active L wrist flex; ( -) active L wrist ext; full active L sh IR; (-) active L sh ER. 20.0# of force L boiler installer w / dynamometer II testing w/ elbow in 90 degrees flexion. Short Term Goals 1. Kari will present with improved active range of motion of the left upper extremity, this will be evidenced by the followina. 0-40 degrees active L shoulder flexion. 07/26/23 = GOAL UPGRADED 1b. 0-60 degrees active L shoulder abduction. 07/26/23 = GOAL UPGRADED 1c. 0-10 degrees active L elbow extension. 2. Kari will present with improved functional abilities: 1a. This will be evidenced by Kari's ability to verbalize and/or demonstrate use of 2 to 3 different AE/modification /compensatory strategies in the home. 05/18/23 = Uses notebook for writing; uses AE cutting board equipped w/ 2 prongs, 'jarrett' , and suction cups positioned on bottom of board GOALS MET 0-35 degrees active L shoulder flexion. *MET 07/25/24 vs initial 0-25 degrees L sh flex 0-55 degrees active L shoulder abduction. *MET 07/26/23 vs initial 0-35 degrees L sh abd 0-45 degrees active L shoulder abduction. *MET 05/18/23 vs initial 0-35 degrees L sh abd [facility] Goals 1. Kari will be modified independent with execution of home exercise program utilizing provided written and visual instructions from therapist as needed. 07/26/23 = 50% met - Exercises 8 Descriptor Seated cane exercises. B sh flexion. 2 x 10. Use of bolster/inclined surface. Trunk rotation. 2 x 10. N/A 08/05/23 L ER; min phys assist to maintain boiler installer. 2 x 10. Sh hor abd/add. 2 x 10. L sh abd. 2 x 10. 7 Descriptor PROM Passive hook fist x 2, x 30 sec hold. Passive distal UE stretch at EOM. Combo of sh ext, elbow ext, forearm supination, wrist ext, digit flex/ext x 15 sec. Ceased secondary to c/o pain/ discomfort. Passive ER. 4 Descriptor Arm bike x 5 min. Intermittent phys assist for repositioning of R hand/R handed grasp. Increased reliance on R UE. Forwards direction. 3 Descriptor Tone management/functional weight bearing. N/A 04/07/23 EOM. Trunk flexion. 1 x 10. Use of dycem. EOM. Upright sitting. L <-> R weight shift. 1 x 10. 2 Descriptor Seated UE exercises. PNF diagonal. L knee --> R shoulder; facilitated by clinician near end range. 2 x 10. Scapular row. Assist w/ full elbow ext. 3 x 10. Elbow flex. 90 degrees flex -> end range. 2 x 10. Elbow flex . Slightly > 90 degrees flex - > end range. Wrist flex. 3 x 10. Elbow 90 degrees flex; forearm in neutral. Blocking provided by therapist. Focus on wrist flex -> then relaxation. Forearm supination. 3 x 10. Assist with facilitation. Muscle tapping to facilitate wrist extension. 3 x 10. Sh flex -> sh ext. Assist w/ sh flex w/ active ext. 2 x 10. Sh abd -> sh add. Assist w/ sh abd w/ active add. 2 x 10. N/A 08/08/23 Red flex bar. Pronation. Sustained boiler installer w/ R handed boiler installer. 2 x 10 each exercise. Lateral sunshine pinch. TB #4. 1 x 10. Seated row w/ sh abd. 3 x 10. *Wrist flex. 3 x 10. Elbow 90 degrees flex; forearm in full pronation. Blocking provided by therapist. Use of 3 and 1/2 -inch ball in palm of hand. Reaching across L -> R hip. 3 x 10. Positioning of L UE at L knee -> R hip. 3 x 10. Sh ext. Sh add. - Assessment Assessment of Improvement Worked on passive ER, passive sh flex w/ active sh ext, and passive sh abd w/ active sh add. Handling of distal UE influences proximal UE motor planning. Rec use of pulleys vs moving in and out of elbow flex w/ arm bike. Rec cont inclusion of slanted/diagonal surfaces and tone management/ passive range of motion exercises. Continued outpatient OT is recommended to address L UE function, including but not limited to active range of motion, tone management, motor planning, awareness of L UE in space, education re: AE/ modification/compensatory strategies to support functional abilities. Home Exercise Program 06/01/23 = Discussed combo sh ext, elbow ext, forearm sup, wrist ext seated w/ blocking of elbow to support elbow ext w/ ability to modify degree of stretch w/ trunk ext (moving from trunk flexion -> upright seated position). 04/26/23 = Discussed potential use of arm pulleys for home use; instructed in passive hor abd/ER stretch w/ use of TT w / trunk flex. Rec 2-3 times w/ hold of 20 - 30 sec+. 04/07/23 = Provided with square of dycem for home use to assist w/ L handed grasp or other functional activities ( as identified). Instructed in use of horizontal bar for weight bearing/tone management , motor re-training/grasp; Kari to identify alt option in the home to support carry- over. 03/17/23 = Rec completion of UE tone management exercises daily; passively stretching L UE out of typical jessica pattern daily (which would include daily execution of modified ER stretch supine, for 20 to 30+ sec, 2-3 repetitions based on response in today's session, w/ use of pillow support for L elbow w/ support of family member, and possible use of heat for 5-10 minutes as tolerated/w/ temperature skin being monitored given change in UE sensation). 03/09/23 = Motor planning sh add; rec use of TT 3 x 10 every other day or 3 x a week. - Plan Therapy Recommendations Advance per Rehabilitation Protocol Therapeutic Contents Modalities Modalities As Needed,As Prescribed Additional Types of Modalities Heat/Ice/Contrast/Ultrasound/E -stim
--- NOTE | 2023-08-15 14:35 | OT.OP.TRT ---
Visit Care Team Role Provider Type Kristian Kim MD Attending Provider Physician Family Provider Primary Care Provider Referring Provider Specialty: Family Practice Address: [address] [place] [address], [facility] Email: [email or web address] Occupational Therapy Treatment Note OT Outpatient Treatment Note - Adult Start: 03/02/23 09:26 Freq: Status: Active Protocol: Document 08/15/23 14:30 AMS (Rec: 08/16/23 09:07 AMS [id number]) OT Outpatient Adult Treatment Note Session Time Visit Start Time 13:45 Visit Stop Time 14:28 Visit Information Visit Number 07/19; --> visit KX modifier Plan of Care Dates 07/26/23 - 10/04/23 Insurance Information Medicare Setting Treatment Setting Outpatient Care Visit Type Note Type Treatment Note General Information General Information Kari is a 67 year-old R hand dominant male referred to outpatient OT by PCP d/t L UE weakness secondary to stroke that occurred in June of 2022 . Medical history: Blood pressure, CHF, h/o falls, h/o R rotator cuff tear. Kari reported that he resides w/ his and son (Santana) who are available to assist him; they reside in a 4-story home (w/ bedroom and bath on 3rd floor of home) and he is retired. He has modified a brief case to assist w/ transporting of items which is equipped w/ cross body strap; use of countertops to transport items via sliding. ( +) 1-handed buttoning noted w/ R hand. Sleeps on R side since having stroke. completes meal prep in home. He presents ambulating w/ SPC (he progressed from manual w/c --> hemiwalker --> SPC). He has received home health PT and is currently being seen in the outpatient clinic at [facility] by PT. AFO has been rec by PT; he presented without AFO. He was reportedly previously seen by speech and discharged d/t no concerns re : cognition, speech, and/or swallow. He was seen by [facility] OT. He is not using L UE sling and/or distal UE splint. He does have a home e-stim unit; he is actively stretching the L hand/digits into extension to maintain available range of motion. - Subjective Observations Reported difficulties with moving affected UE out of typical jessica pattern; difficulties with grasp and release, extending elbow fully , actively extending wrist. - Objective Objective Measurements Please refer to below for progress towards meeting established OT goals: 07/26/23 = 40.0# of force L fire prevention engineer w/ elbow 90 degrees flex vs initial 20.0# of force. 20 degrees active L sh ext vs initial 20 degrees. 03/01/23 = (+) mild L g/h/sh subluxation. (+) active L sh elevation; (+) L scapular retraction noted w/ L sh elevation. Goniometer measurements were completed in sitting; 25 degrees active L sh flexion; 20 degrees active L sh extension; 35 degrees active L sh abd; 95 degrees active L elbow flexion; full active L forearm pronation; (- ) active forearm supination; ( -) active L elbow ext; 25 degrees active L wrist flex; ( -) active L wrist ext; full active L sh IR; (-) active L sh ER. 20.0# of force L fire prevention engineer w / dynamometer II testing w/ elbow in 90 degrees flexion. Short Term Goals 1. Kari will present with improved active range of motion of the left upper extremity, this will be evidenced by the followina. 0-40 degrees active L shoulder flexion. 07/26/23 = GOAL UPGRADED 1b. 0-60 degrees active L shoulder abduction. 07/26/23 = GOAL UPGRADED 1c. 0-10 degrees active L elbow extension. 2. Kari will present with improved functional abilities: 1a. This will be evidenced by Kari's ability to verbalize and/or demonstrate use of 2 to 3 different AE/modification /compensatory strategies in the home. 05/18/23 = Uses notebook for writing; uses AE cutting board equipped w/ 2 prongs, 'jarrett' , and suction cups positioned on bottom of board GOALS MET 0-35 degrees active L shoulder flexion. *MET 07/25/24 vs initial 0-25 degrees L sh flex 0-55 degrees active L shoulder abduction. *MET 07/26/23 vs initial 0-35 degrees L sh abd 0-45 degrees active L shoulder abduction. *MET 05/18/23 vs initial 0-35 degrees L sh abd Ob/Gyn Physician Goals 1. Kari will be modified independent with execution of home exercise program utilizing provided written and visual instructions from therapist as needed. 07/26/23 = 50% met - Exercises 11 Descriptor Seated UE strengthening. Sh ext. TB #1. 2 x 10. Scapular retraction. Modified. TB #1. 2 x 10. 10 Descriptor Red flex-bar. Supination. 3 x 10. Pronation. 4 x 10. Modified twist. 3 x 10. 9 Descriptor L UE motor planning. L sh hor abd. Use of mat. Assist to facilitate elbow ext . 2 x 10. 8 Descriptor Seated cane exercises. B sh flexion. 2 x 10. Use of bolster/inclined surface. Trunk rotation. 2 x 10. N/A 08/05/23 L ER; min phys assist to maintain fire prevention engineer. 2 x 10. Sh hor abd/add. 2 x 10. L sh abd. 2 x 10. 7 Descriptor PROM Passive hook fist x 2, x 30 sec hold. Passive distal UE stretch at EOM. Combo of sh ext, elbow ext, forearm supination, wrist ext, digit flex/ext x 15 sec. Ceased secondary to c/o pain/ discomfort. Passive ER. 6 Descriptor Arm Pulleys. Seated. x 7 minutes. *Rec use of ball to support upright posture/ discourage trunk extension. 5 Descriptor Tone management/UE neuro retraining. Use of horizontal bar. Dycem assist for L hand grasp. Max phys assist to grasping horizontal bar and release horizontal bar. L <-> R weight shift. 2 x 10. Min phys assist to facilitate elbow ext. Elbow ext, leaning slightly backwards and pulling self forwards. 2 x 10. Sh flex, combined w/ elbow ext , forearm pronation and wrist in slight extension. Pulsing grasp (50% of force of fire prevention engineer). 2 x 10. Completed sitting. Positioning of both hands on horizontal bar, hands shoulder width apart. Pulling up into standing <-> maintaining grasp w/ sitting/standing B UEs. 1 x 7. Positioning of both hands on horizontal bar, hands shoulder width apart, pulling up into standing B hands, returning to sitting w/ L UE/L hand positioned on bar only. 1 x 5. Modified dip w/ use of bar L UE. x 10 minutes. Use of e- stim. 4 Descriptor Arm bike x 5 min. Intermittent phys assist for repositioning of R hand/R handed grasp. Increased reliance on R UE. Forwards direction. 3 Descriptor Tone management/functional weight bearing. N/A 04/07/23 EOM. Trunk flexion. 1 x 10. Use of dycem. EOM. Upright sitting. L <-> R weight shift. 1 x 10. 2 Descriptor Seated UE exercises. Elbow flex. 90 degrees flex -> end range. 2 x 10. Elbow flex . Slightly > 90 degrees flex - > end range. Wrist flex. 3 x 10. Elbow 90 degrees flex; forearm in neutral. Blocking provided by therapist. Focus on wrist flex -> then relaxation. Wrist ext. Muscle tapping to facilitate. 3 x 10. Sh add w/ focus on bringing elbow to side of body vs winging/or typical jessica pattern posturing/motor movement. N/A 08/08/23 Seated row w/ sh abd. 3 x 10. Reaching across L -> R hip. 3 x 10. Positioning of L UE at L knee -> R hip. 3 x 10. Forearm supination. 3 x 10. PNF diagonal. L knee --> R shoulder; facilitated by clinician near end range. 2 x 10. 1 Descriptor Supine UE exercises. Sh flex. 1 x 10 passive. 2 x 10. Min phys assist to facilitate. Sh abd. 2 x 10. Min phys assist to facilitate to 90 degrees sh abd. Passive ER by clinician. 2 x 10. Passive hor abd/ER by clinician. 2 x 10. Wrist extension. Muscle tapping to facilitate. Elbow in 90 degrees flexion. 2 x 10. N/A 04/07/23 Sh ext. 3 x 10. Min phys assist to facilitate. 1 x 10 focus on controlled descent. CGA to min phys assist. Sh ext w/ handle. 2 x 10. TB #1. CGA to min phys assist. Elbow flex. 3 x 10. Clinician assisting 90 - 110+ degrees to obtain full elbow ext; assist to obtain initial elbow ext. Sh medium-sized circles. 1 x 10 in both directions. CGA to min phys assist to support motor control at level. PNF diagonal. 2 x 10. L hip -> R shoulder. Max phys assist. Sh add/hor abd. Limited range of motion w/ abd. 2 x 10. - Assessment Assessment of Improvement Use of towel roll to work on motor breakdown and to discourage pattern of winging (sh abd w/ IR and forearm pronation). Use of handle from lifting equipment w/ TB#1 for UE strengthening; cont to do well w/ maintaining elbow ext w/ resisted sh ext; difficulty motor planning elbow flex <-> ext w/ seated rows, thus, modified scapular retraction exercise. Cont to do well w/ maintaining grasp of flexbar; able to maintain w/ pronation exercise w/ initial positioning in sup and return to this position between reps. Handling of distal UE influences proximal UE motor planning. Rec use of pulleys vs moving in and out of elbow flex w/ arm bike. Rec cont inclusion of slanted/diagonal surfaces and tone management/ passive range of motion exercises. Continued outpatient OT is recommended to address L UE function, including but not limited to active range of motion, tone management, motor planning, awareness of L UE in space, education re: AE/ modification/compensatory strategies to support functional abilities. Home Exercise Program 06/01/23 = Discussed combo sh ext, elbow ext, forearm sup, wrist ext seated w/ blocking of elbow to support elbow ext w/ ability to modify degree of stretch w/ trunk ext (moving from trunk flexion -> upright seated position). 04/26/23 = Discussed potential use of arm pulleys for home use; instructed in passive hor abd/ER stretch w/ use of TT w / trunk flex. Rec 2-3 times w/ hold of 20 - 30 sec+. 04/07/23 = Provided with square of dycem for home use to assist w/ L handed grasp or other functional activities ( as identified). Instructed in use of horizontal bar for weight bearing/tone management , motor re-training/grasp; Kari to identify alt option in the home to support carry- over. 03/17/23 = Rec completion of UE tone management exercises daily; passively stretching L UE out of typical jessica pattern daily (which would include daily execution of modified ER stretch supine, for 20 to 30+ sec, 2-3 repetitions based on response in today's session, w/ use of pillow support for L elbow w/ support of family member, and possible use of heat for 5-10 minutes as tolerated/w/ temperature skin being monitored given change in UE sensation). 03/09/23 = Motor planning sh add; rec use of TT 3 x 10 every other day or 3 x a week. - Plan Therapy Recommendations Advance per Rehabilitation Protocol Therapeutic Contents Modalities Modalities As Needed,As Prescribed Additional Types of Modalities Heat/Ice/Contrast/Ultrasound/E -stim
--- NOTE | 2023-08-23 14:53 | OT.OP.TRT ---
Visit Care Team Role Provider Type Kristian Kim MD Attending Provider Physician Family Provider Primary Care Provider Referring Provider Specialty: Family Practice Address: [address] [place] [address], [facility] Email: [email or web address] Occupational Therapy Treatment Note OT Outpatient Treatment Note - Adult Start: 03/02/23 09:26 Freq: Status: Active Protocol: Document 08/23/23 14:45 AMS (Rec: 08/23/23 14:53 AMS [id number]) OT Outpatient Adult Treatment Note Session Time Visit Start Time 13:45 Visit Stop Time 14:30 Visit Information Visit Number 08/18; --> visit KX modifier Plan of Care Dates 07/26/23 - 10/04/23 Insurance Information Medicare Setting Treatment Setting Outpatient Care Visit Type Note Type Treatment Note General Information General Information Kari is a 67 year-old R hand dominant male referred to outpatient OT by PCP d/t L UE weakness secondary to stroke that occurred in June of 2022 . Medical history: Blood pressure, CHF, h/o falls, h/o R rotator cuff tear. Kari reported that he resides w/ his and son (Santana) who are available to assist him; they reside in a 4-story home (w/ bedroom and bath on 3rd floor of home). The [place] also [place] He is retired. He has modified a brief case to assist w/ transporting of items which is equipped w/ cross body strap; use of countertops to transport items via sliding. (+) 1-handed buttoning noted w/ R hand. Sleeps on R side since having stroke. completes meal prep in home. He presents ambulating w/ SPC (he progressed from manual w/c --> hemiwalker --> SPC). He has received home health PT and is currently being seen in the outpatient clinic at [facility] by PT. AFO has been rec by PT; he presented without AFO. He was reportedly previously seen by speech and discharged d/t no concerns re: cognition, speech, and/or swallow. He was seen by [facility] OT. He is not using L UE sling and/or distal UE splint. He does have a home e-stim unit; he is actively stretching the L hand/digits into extension to maintain available range of motion. - Subjective Observations Cont reported difficulties w/ moving affected UE out of typical jessica pattern; difficulties with grasp and release, elbow extension, shoulder external rotation, shoulder abduction and wrist extension. Denies any L shoulder pain/discomfort associated w/ sh subluxation. 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 20 degrees active L sh ext vs initial 20 degrees. 03/01/23 = (+) mild L g/h/sh subluxation. (+) active L sh elevation; (+) L scapular retraction noted w/ L sh elevation. Goniometer measurements were completed in sitting; 25 degrees active L sh flexion; 20 degrees active L sh extension; 35 degrees active L sh abd; 95 degrees active L elbow flexion; full active L forearm pronation; (- ) active forearm supination; ( -) active L elbow ext; 25 degrees active L wrist flex; ( -) active L wrist ext; full active L sh IR; (-) active L sh ER. 20.0# of force L electrical maintenance worker w / dynamometer II testing w/ elbow in 90 degrees flexion. Short Term Goals 1. Kari will present with improved active range of motion of the left upper extremity, this will be evidenced by the followina. 0-40 degrees active L shoulder flexion. 07/26/23 = GOAL UPGRADED 1b. 0-60 degrees active L shoulder abduction. 07/26/23 = GOAL UPGRADED 1c. 0-10 degrees active L elbow extension. 2. Kari will present with improved functional abilities: 1a. This will be evidenced by Kari's ability to verbalize and/or demonstrate use of 2 to 3 different AE/modification /compensatory strategies in the home. 05/18/23 = Uses notebook for writing; uses AE cutting board equipped w/ 2 prongs, 'jarrett' , and suction cups positioned on bottom of board GOALS MET 0-35 degrees active L shoulder flexion. *MET 07/25/24 vs initial 0-25 degrees L sh flex 0-55 degrees active L shoulder abduction. *MET 07/26/23 vs initial 0-35 degrees L sh abd 0-45 degrees active L shoulder abduction. *MET 05/18/23 vs initial 0-35 degrees L sh abd Retirement Goals 1. Kari will be modified independent with execution of home exercise program utilizing provided written and visual instructions from therapist as needed. 07/26/23 = 50% met - Exercises 11 Descriptor Seated UE strengthening. Sh ext. TB #1. 3 x 10. Scapular retraction. Modified. TB #1. 3 x 10. 10 Descriptor Red flex-bar. Supination. 3 x 10. Pronation. 4 x 10. Modified twist. 3 x 10. 7 Descriptor PROM Passive hook fist x 1, x 30 sec hold. Passive distal UE stretch at EOM. Combo of sh ext, elbow ext, forearm supination, wrist ext, digit flex/ext x 30 sec. Passive ER. Passive sh hor abd & ER w/ use of TT. Pt approached with 2-3 sec hold x 15 reps. Passive UE diagonal R hip -> to L of body. 1 x 10. 6 Descriptor Arm Pulleys. Seated. x 7 minutes. *Rec use of ball to support upright posture/ discourage trunk extension. 3 Descriptor Tone management/functional weight bearing. N/A 04/07/23 EOM. Trunk flexion. 1 x 10. Use of dycem. EOM. Upright sitting. L <-> R weight shift. 1 x 10. 2 Descriptor Seated UE exercises. Elbow flex. 90 degrees flex -> end range. 2 x 10. Sh add w/ focus on bringing elbow to side of body vs winging/or typical jessica pattern posturing/motor movement. 2 x 10. Seated row. Use of half bolster to discourage winging/ or typical jessica pattern posturing/motor movement (IR). 2 x 10. N/A 08/08/23 Wrist flex. 3 x 10. Elbow 90 degrees flex; forearm in neutral. Blocking provided by therapist. Focus on wrist flex -> then relaxation. Wrist ext. Muscle tapping to facilitate. 3 x 10. Seated row w/ sh abd. 3 x 10. Reaching across L -> R hip. 3 x 10. Positioning of L UE at L knee -> R hip. 3 x 10. Forearm supination. 3 x 10. PNF diagonal. L knee --> R shoulder; facilitated by clinician near end range. 2 x 10. - Assessment Assessment of Improvement Use of towel roll to work on motor breakdown and to discourage pattern of winging (sh abd w/ IR and forearm pronation). Use of half bolster/roll for UE motor breakdown and to discourage pattern of winging, sh abd w/ IR and forearm pronation; phys assist to facilitate. Cont use of handle from lifting equipment w/ TB#1 for UE strengthening; cont to do well w/ maintaining elbow ext w/ resisted sh ext. Handling of distal UE influences proximal UE motor planning. Rec use of pulleys vs moving in and out of elbow flex w/ arm bike. Rec cont inclusion of slanted/ diagonal surfaces and tone management/passive range of motion exercises. Continued outpatient OT is recommended to address L UE function, including but not limited to active range of motion, tone management, motor planning, awareness of L UE in space, education re: AE/ modification/compensatory strategies to support functional abilities. Home Exercise Program 06/01/23 = Discussed combo sh ext, elbow ext, forearm sup, wrist ext seated w/ blocking of elbow to support elbow ext w/ ability to modify degree of stretch w/ trunk ext (moving from trunk flexion -> upright seated position). 04/26/23 = Discussed potential use of arm pulleys for home use; instructed in passive hor abd/ER stretch w/ use of TT w / trunk flex. Rec 2-3 times w/ hold of 20 - 30 sec+. 04/07/23 = Provided with square of dycem for home use to assist w/ L handed grasp or other functional activities ( as identified). Instructed in use of horizontal bar for weight bearing/tone management , motor re-training/grasp; Kari to identify alt option in the home to support carry- over. 03/17/23 = Rec completion of UE tone management exercises daily; passively stretching L UE out of typical jessica pattern daily (which would include daily execution of modified ER stretch supine, for 20 to 30+ sec, 2-3 repetitions based on response in today's session, w/ use of pillow support for L elbow w/ support of family member, and possible use of heat for 5-10 minutes as tolerated/w/ temperature skin being monitored given change in UE sensation). 03/09/23 = Motor planning sh add; rec use of TT 3 x 10 every other day or 3 x a week. - Plan Therapy Recommendations Advance per Rehabilitation Protocol Therapeutic Contents Modalities Modalities As Needed,As Prescribed Additional Types of Modalities Heat/Ice/Contrast/Ultrasound/E -stim
--- NOTE | 2023-08-30 14:51 | OT.OP.TRT ---
Visit Care Team Role Provider Type Kristian Kim MD Attending Provider Physician Family Provider Primary Care Provider Referring Provider Specialty: Family Practice Address: [address] [place] [address], [facility] Email: [email or web address] Occupational Therapy Treatment Note OT Outpatient Treatment Note - Adult Start: 03/02/23 09:26 Freq: Status: Active Protocol: Document 08/30/23 14:42 AMS (Rec: 08/30/23 14:50 AMS [id number]) OT Outpatient Adult Treatment Note Session Time Visit Start Time 13:50 Visit Stop Time 14:35 Visit Information Visit Number 09/18; --> visit KX modifier Plan of Care Dates 07/26/23 - 10/04/23 Insurance Information Medicare Setting Treatment Setting Outpatient Care Visit Type Note Type Treatment Note General Information General Information Kari is a 67 year-old R hand dominant male referred to outpatient OT by PCP d/t L UE weakness secondary to stroke that occurred in June of 2022 . Medical history: Blood pressure, CHF, h/o falls, h/o R rotator cuff tear. Kari reported that he resides w/ his and son (Santana) who are available to assist him; they reside in a 4-story home (w/ bedroom and bath on 3rd floor of home). [place] also [place] [address] [place] He is retired. He has modified a brief case to assist w/ transporting of items which is equipped w/ cross body strap; use of countertops to transport items via sliding. (+) 1-handed buttoning noted w/ R hand. Sleeps on R side since having stroke. completes meal prep in home. He presents ambulating w/ SPC (he progressed from manual w/c --> hemiwalker --> SPC). He has received home health PT and is currently being seen in the outpatient clinic at [facility] by PT. AFO has been rec by PT; he presented without AFO. He was reportedly previously seen by speech and discharged d/t no concerns re: cognition, speech, and/or swallow. He was seen by [facility] OT. He is not using L UE sling and/or distal UE splint. He does have a home e-stim unit; he is actively stretching the L hand/digits into extension to maintain available range of motion. - Subjective Observations Cont reported difficulties w/ moving affected UE out of typical jessica pattern; difficulties with grasp and release, elbow extension, shoulder external rotation, shoulder abduction and wrist extension. Denies any L shoulder pain/discomfort associated w/ sh subluxation. Reported enjoying 'pickleball simulation' with PT using uchoose rackets and wiffle balls. Patient/Caregiver Compliance with Home Good Exercise Program - Objective Objective Measurements Please refer to below for progress towards meeting established OT goals: 07/26/23 = 40.0# of force L machine adjuster leader w/ elbow 90 degrees flex vs initial 20.0# of force. 20 degrees active L sh ext vs initial 20 degrees. 03/01/23 = (+) mild L g/h/sh subluxation. (+) active L sh elevation; (+) L scapular retraction noted w/ L sh elevation. Goniometer measurements were completed in sitting; 25 degrees active L sh flexion; 20 degrees active L sh extension; 35 degrees active L sh abd; 95 degrees active L elbow flexion; full active L forearm pronation; (- ) active forearm supination; ( -) active L elbow ext; 25 degrees active L wrist flex; ( -) active L wrist ext; full active L sh IR; (-) active L sh ER. 20.0# of force L machine adjuster leader w / dynamometer II testing w/ elbow in 90 degrees flexion. Short Term Goals 1. Kari will present with improved active range of motion of the left upper extremity, this will be evidenced by the followina. 0-40 degrees active L shoulder flexion. 07/26/23 = GOAL UPGRADED 1b. 0-60 degrees active L shoulder abduction. 07/26/23 = GOAL UPGRADED 1c. 0-10 degrees active L elbow extension. 2. Kari will present with improved functional abilities: 1a. This will be evidenced by Kari's ability to verbalize and/or demonstrate use of 2 to 3 different AE/modification /compensatory strategies in the home. 05/18/23 = Uses notebook for writing; uses AE cutting board equipped w/ 2 prongs, 'jarrett' , and suction cups positioned on bottom of board GOALS MET 0-35 degrees active L shoulder flexion. *MET 07/25/24 vs initial 0-25 degrees L sh flex 0-55 degrees active L shoulder abduction. *MET 07/26/23 vs initial 0-35 degrees L sh abd 0-45 degrees active L shoulder abduction. *MET 05/18/23 vs initial 0-35 degrees L sh abd Usp Goals 1. Kari will be modified independent with execution of home exercise program utilizing provided written and visual instructions from therapist as needed. 07/26/23 = 50% met - Exercises 11 Descriptor Seated UE strengthening. Sh ext. TB #1. 3 x 10. Scapular retraction. Modified. TB #1. 3 x 10. 7 Descriptor PROM Passive hook fist x 1, x 30 sec hold. Passive distal UE stretch at EOM. Combo of sh ext, elbow ext, forearm supination, wrist ext, digit flex/ext x 30 sec. Passive ER. Passive sh hor abd & ER w/ use of yoga ball. Passive UE diagonal R hip -> to L of body. 1 x 10. 6 Descriptor Arm Pulleys. Seated. x 7 minutes. *Rec use of ball to support upright posture/ discourage trunk extension. 2 Descriptor Seated UE exercises. Elbow flex. 90 degrees flex -> end range. 2 x 10. Sh add w/ focus on bringing elbow to side of body vs winging/or typical jessica pattern posturing/motor movement. 2 x 10. Seated row. Use of half bolster to discourage winging/ or typical jessica pattern posturing/motor movement (IR). 2 x 10. N/A 08/08/23 Wrist flex. 3 x 10. Elbow 90 degrees flex; forearm in neutral. Blocking provided by therapist. Focus on wrist flex -> then relaxation. Wrist ext. Muscle tapping to facilitate. 3 x 10. Seated row w/ sh abd. 3 x 10. Reaching across L -> R hip. 3 x 10. Positioning of L UE at L knee -> R hip. 3 x 10. Forearm supination. 3 x 10. PNF diagonal. L knee --> R shoulder; facilitated by clinician near end range. 2 x 10. - Assessment Assessment of Improvement Use of towel roll to work on motor breakdown and to discourage pattern of winging (sh abd w/ IR and forearm pronation). Use of half bolster/roll for UE motor breakdown and to discourage pattern of winging, sh abd w/ IR and forearm pronation; phys assist to facilitate. Use of yoga ball for sh abd ROM, modified rows to left of body w/ scapular retraction w/ decreased assist needed for elbow ext, although, trunk flex noted. Cont use of handle from lifting equipment w/ TB# 1 for UE strengthening; cont to do well w/ maintaining elbow ext w/ resisted sh ext. Handling of distal UE influences proximal UE motor planning. Rec use of pulleys vs moving in and out of elbow flex w/ arm bike. Rec cont inclusion of slanted/diagonal surfaces and tone management/ passive range of motion exercises. Rec consideration of e-stim combined w/ neuro motor retraining/UE motor planning. Continued outpatient OT is recommended to address L UE function, including but not limited to active range of motion, tone management, motor planning, awareness of L UE in space, education re: AE/ modification/compensatory strategies to support functional abilities. Home Exercise Program 06/01/23 = Discussed combo sh ext, elbow ext, forearm sup, wrist ext seated w/ blocking of elbow to support elbow ext w/ ability to modify degree of stretch w/ trunk ext (moving from trunk flexion -> upright seated position). 04/26/23 = Discussed potential use of arm pulleys for home use; instructed in passive hor abd/ER stretch w/ use of TT w / trunk flex. Rec 2-3 times w/ hold of 20 - 30 sec+. 04/07/23 = Provided with square of dycem for home use to assist w/ L handed grasp or other functional activities ( as identified). Instructed in use of horizontal bar for weight bearing/tone management , motor re-training/grasp; Kari to identify alt option in the home to support carry- over. 03/17/23 = Rec completion of UE tone management exercises daily; passively stretching L UE out of typical jessica pattern daily (which would include daily execution of modified ER stretch supine, for 20 to 30+ sec, 2-3 repetitions based on response in today's session, w/ use of pillow support for L elbow w/ support of family member, and possible use of heat for 5-10 minutes as tolerated/w/ temperature skin being monitored given change in UE sensation). 03/09/23 = Motor planning sh add; rec use of TT 3 x 10 every other day or 3 x a week. - Plan Therapy Recommendations Advance per Rehabilitation Protocol Therapeutic Contents Modalities Modalities As Needed,As Prescribed Additional Types of Modalities Heat/Ice/Contrast/Ultrasound/E -stim
--- NOTE | 2023-09-09 15:13 | OT.OP.TRT ---
Visit Care Team Role Provider Type Kristian Kim MD Attending Provider Physician Family Provider Primary Care Provider Referring Provider Specialty: Family Practice Address: [address] [place] [address], [facility] Email: [email or web address] Occupational Therapy Treatment Note OT Outpatient Treatment Note - Adult Start: 03/02/23 09:26 Freq: Status: Active Protocol: Document 09/09/23 15:03 AMS (Rec: 09/09/23 15:13 [facility] [id number]) OT Outpatient Adult Treatment Note Session Time Visit Start Time 13:45 Visit Stop Time 14:30 Visit Information Visit Number 10/18; --> visit KX modifier Plan of Care Dates 07/26/23 - 10/04/23 Insurance Information Medicare Setting Treatment Setting Outpatient Care Visit Type Note Type Treatment Note General Information General Information Kari is a 67 year-old R hand dominant male referred to outpatient OT by PCP d/t L UE weakness secondary to stroke that occurred in June of 2022 . Medical history: Blood pressure, CHF, h/o falls, h/o R rotator cuff tear. Kari reported that he resides w/ his and son (Santana) who are available to assist him; they reside in a 4-story home (w/ bedroom and bath on 3rd floor of home). [place] also [place] [address] [place] He is retired. He has modified a brief case to assist w/ transporting of items which is equipped w/ cross body strap; use of countertops to transport items via sliding. (+) 1-handed buttoning noted w/ R hand. Sleeps on R side since having stroke. completes meal prep in home. He presents ambulating w/ SPC (he progressed from manual w/c --> hemiwalker --> SPC). He has received home health PT and is currently being seen in the outpatient clinic at [facility] by PT. AFO has been rec by PT; he presented without AFO. He was reportedly previously seen by speech and discharged d/t no concerns re: cognition, speech, and/or swallow. He was seen by [facility] OT. He is not using L UE sling and/or distal UE splint. He does have a home e-stim unit; he is actively stretching the L hand/digits into extension to maintain available range of motion. - Subjective Observations Cont reported difficulties w/ moving affected UE out of typical jessica pattern; difficulties with grasp and release, elbow extension, shoulder external rotation, shoulder abduction and wrist extension. Denies any L shoulder pain/discomfort associated w/ sh subluxation. Cont to work on balance w/ PT w/ gait; cont to work towards ambulation without mobility AE (without cane use). Kari reports positively responding to pickle ball simulation to work on balance w/ PT. Patient/Caregiver Compliance with Home Good Exercise Program - Objective Objective Measurements Please refer to below for progress towards meeting established OT goals: 07/26/23 = 40.0# of force L chief unit forester w/ elbow 90 degrees flex vs initial 20.0# of force. 20 degrees active L sh ext vs initial 20 degrees. 03/01/23 = (+) mild L g/h/sh subluxation. (+) active L sh elevation; (+) L scapular retraction noted w/ L sh elevation. Goniometer measurements were completed in sitting; 25 degrees active L sh flexion; 20 degrees active L sh extension; 35 degrees active L sh abd; 95 degrees active L elbow flexion; full active L forearm pronation; (- ) active forearm supination; ( -) active L elbow ext; 25 degrees active L wrist flex; ( -) active L wrist ext; full active L sh IR; (-) active L sh ER. 20.0# of force L chief unit forester w / dynamometer II testing w/ elbow in 90 degrees flexion. Short Term Goals 1. Kari will present with improved active range of motion of the left upper extremity, this will be evidenced by the followina. 0-40 degrees active L shoulder flexion. 07/26/23 = GOAL UPGRADED 1b. 0-60 degrees active L shoulder abduction. 07/26/23 = GOAL UPGRADED 1c. 0-10 degrees active L elbow extension. 2. Kari will present with improved functional abilities: 1a. This will be evidenced by Kari's ability to verbalize and/or demonstrate use of 2 to 3 different AE/modification /compensatory strategies in the home. 05/18/23 = Uses notebook for writing; uses AE cutting board equipped w/ 2 prongs, 'jarrett' , and suction cups positioned on bottom of board GOALS MET 0-35 degrees active L shoulder flexion. *MET 07/25/24 vs initial 0-25 degrees L sh flex 0-55 degrees active L shoulder abduction. *MET 07/26/23 vs initial 0-35 degrees L sh abd 0-45 degrees active L shoulder abduction. *MET 05/18/23 vs initial 0-35 degrees L sh abd Assisted Goals 1Franco Pierce will be modified independent with execution of home exercise program utilizing provided written and visual instructions from therapist as needed. 07/26/23 = 50% met - Exercises 11 Descriptor Seated UE strengthening. Sh ext. TB #2. 3 x 10. Scapular retraction. Modified. TB #2. 3 x 10. Upright row. TB #2. 3 x 10. 10 Descriptor Red flex-bar. Supination. 3 x 10. Pronation. 4 x 10. Modified twist. 3 x 10. 9 Descriptor L UE motor planning. L sh hor abd. Use of mat. Assist to facilitate elbow ext . 2 x 10. 8 Descriptor Seated cane exercises. B sh flexion. 2 x 10. Use of bolster/inclined surface. Trunk rotation. 2 x 10. N/A 08/05/23 L ER; min phys assist to maintain chief unit forester. 2 x 10. Sh hor abd/add. 2 x 10. L sh abd. 2 x 10. 7 Descriptor PROM Passive hook fist x 1, x 30 sec hold. Passive ER. Passive sh hor abd & ER w/ use of yoga ball. Passive UE diagonal R hip -> to L of body. 1 x 10. Passive forearm supination w/ elbow ext w/ use of knee and working towards wrist ext (vs PROM exercise below). Passive wrist/digit extension w/ modified prayer w/ clasped fingers w/ bringing wrists towards base of support. N/A 09/09/23 Passive distal UE stretch at EOM. Combo of sh ext, elbow ext, forearm supination, wrist ext, digit flex/ext x 30 sec. 6 Descriptor Arm Pulleys. Seated. x 7 minutes. *Rec use of ball to support upright posture/ discourage trunk extension. 2 Descriptor Seated UE exercises. Elbow flex. 90 degrees flex -> end range. 2 x 10. Sh add w/ focus on bringing elbow to side of body vs winging/or typical jessica pattern posturing/motor movement. 2 x 10. Seated row. Use of half bolster to discourage winging/ or typical jessica pattern posturing/motor movement (IR). 2 x 10. N/A 08/08/23 Wrist flex. 3 x 10. Elbow 90 degrees flex; forearm in neutral. Blocking provided by therapist. Focus on wrist flex -> then relaxation. Wrist ext. Muscle tapping to facilitate. 3 x 10. Seated row w/ sh abd. 3 x 10. Reaching across L -> R hip. 3 x 10. Positioning of L UE at L knee -> R hip. 3 x 10. Forearm supination. 3 x 10. PNF diagonal. L knee --> R shoulder; facilitated by clinician near end range. 2 x 10. - Assessment Assessment of Improvement Cont use of yoga ball for sh abd ROM, modified rows to left of body w/ scapular retraction w/ decreased assist needed for elbow ext, although, trunk flex noted. Cont use of handle from lifting equipment w/ increase to TB#2 for UE strengthening; introduced upright row w/ trunk flex (assist provided for obtaining full elbow ext). Trialed motor breakdown w/ use of ball in standing; tendency into winging/elbow ext w/ isometrically pushing against ball w/ distal UE; may want to revisit towel roll in standing at elbow level vs distally. Handling of distal UE influences proximal UE motor planning. Rec use of pulleys vs moving in and out of elbow flex w/ arm bike. Rec cont inclusion of slanted/ diagonal surfaces and tone management/passive range of motion exercises. Rec consideration of e-stim combined w/ neuro motor retraining/UE motor planning. Rec revisiting use of half bolster/roll for UE motor breakdown and to discourage pattern of winging, sh abd w/ IR and forearm pronation; phys assist to facilitate. Continued outpatient OT is recommended to address L UE function, including but not limited to active range of motion, tone management, motor planning, awareness of L UE in space, education re: AE/ modification/compensatory strategies to support functional abilities. Home Exercise Program 09/09/23 = Passive elbow ext w/ forearm supination w/ use of ipsilateral L knee for blocking; hold for 20-30 sec or more. Add wrist ext as geo/ as able to do so. Passive wrist ext w/ modified prayer w / fingers clasping if needed and bringing wrists to base of support; hold for 20-30 sec or more. These PROM exercises rec vs positioning of L UE to left of body combinining elbow ext, forearm supination, wrist/digit ext. 06/01/23 = Discussed combo sh ext, elbow ext, forearm sup, wrist ext seated w/ blocking of elbow to support elbow ext w/ ability to modify degree of stretch w/ trunk ext (moving from trunk flexion -> upright seated position). 04/26/23 = Discussed potential use of arm pulleys for home use; instructed in passive hor abd/ER stretch w/ use of TT w / trunk flex. Rec 2-3 times w/ hold of 20 - 30 sec+. 04/07/23 = Provided with square of dycem for home use to assist w/ L handed grasp or other functional activities ( as identified). Instructed in use of horizontal bar for weight bearing/tone management , motor re-training/grasp; Kari to identify alt option in the home to support carry- over. 03/17/23 = Rec completion of UE tone management exercises daily; passively stretching L UE out of typical jessica pattern daily (which would include daily execution of modified ER stretch supine, for 20 to 30+ sec, 2-3 repetitions based on response in today's session, w/ use of pillow support for L elbow w/ support of family member, and possible use of heat for 5-10 minutes as tolerated/w/ temperature skin being monitored given change in UE sensation). 03/09/23 = Motor planning sh add; rec use of TT 3 x 10 every other day or 3 x a week. - Plan Therapy Recommendations Advance per Rehabilitation Protocol Therapeutic Contents Modalities Modalities As Needed,As Prescribed Additional Types of Modalities Heat/Ice/Contrast/Ultrasound/E -stim
--- NOTE | 2023-09-16 15:28 | OT.OP.TRT ---
Visit Care Team Role Provider Type Kristian Kim MD Attending Provider Physician Family Provider Primary Care Provider Referring Provider Specialty: Family Practice Address: [address] [place] [address], [facility] Email: [email or web address] Occupational Therapy Treatment Note OT Outpatient Treatment Note - Adult Start: 03/02/23 09:26 Freq: Status: Active Protocol: Document 09/16/23 15:22 AMS (Rec: 09/16/23 15:28 [facility] [id number]) OT Outpatient Adult Treatment Note Session Time Visit Start Time 13:45 Visit Stop Time 14:30 Visit Information Visit Number 11/18; --> visit KX modifier Plan of Care Dates 07/26/23 - 10/04/23 Insurance Information Medicare Setting Treatment Setting Outpatient Care Visit Type Note Type Treatment Note General Information General Information Kari is a 67 year-old R hand dominant male referred to outpatient OT by PCP d/t L UE weakness secondary to stroke that occurred in June of 2022 . Medical history: Blood pressure, CHF, h/o falls, h/o R rotator cuff tear. Kari reported that he resides w/ his and son (Santana) who are available to assist him; they reside in a 4-story home (w/ bedroom and bath on 3rd floor of home). [place] also [place] [address] [place] He is retired. He has modified a brief case to assist w/ transporting of items which is equipped w/ cross body strap; use of countertops to transport items via sliding. (+) 1-handed buttoning noted w/ R hand. Sleeps on R side since having stroke. completes meal prep in home. He presents ambulating w/ SPC (he progressed from manual w/c --> hemiwalker --> SPC). He has received home health PT and is currently being seen in the outpatient clinic at [facility] by PT. AFO has been rec by PT; he presented without AFO. He was reportedly previously seen by speech and discharged d/t no concerns re: cognition, speech, and/or swallow. He was seen by [facility] OT. He is not using L UE sling and/or distal UE splint. He does have a home e-stim unit; he is actively stretching the L hand/digits into extension to maintain available range of motion. - Subjective Observations Cont reported difficulties w/ moving affected UE out of typical jessica pattern; difficulties with grasp and release, elbow extension, shoulder external rotation, shoulder abduction and wrist extension. Reports inability to actively RD or UD. Denies any L shoulder pain/discomfort associated w/ sh subluxation. Cont to work on balance w/ PT w/ gait; cont to work towards ambulation without mobility AE (without cane use). Kari reports positively responding to pickle ball w/ PT. Patient/Caregiver Compliance with Home Good Exercise Program - Objective Objective Measurements Please refer to below for progress towards meeting established OT goals: 07/26/23 = 40.0# of force L measurement superintendent w/ elbow 90 degrees flex vs initial 20.0# of force. 20 degrees active L sh ext vs initial 20 degrees. 03/01/23 = (+) mild L g/h/sh subluxation. (+) active L sh elevation; (+) L scapular retraction noted w/ L sh elevation. Goniometer measurements were completed in sitting; 25 degrees active L sh flexion; 20 degrees active L sh extension; 35 degrees active L sh abd; 95 degrees active L elbow flexion; full active L forearm pronation; (- ) active forearm supination; ( -) active L elbow ext; 25 degrees active L wrist flex; ( -) active L wrist ext; full active L sh IR; (-) active L sh ER. 20.0# of force L measurement superintendent w / dynamometer II testing w/ elbow in 90 degrees flexion. Short Term Goals 1. Kari will present with improved active range of motion of the left upper extremity, this will be evidenced by the followina. 0-40 degrees active L shoulder flexion. 07/26/23 = GOAL UPGRADED 1b. 0-60 degrees active L shoulder abduction. 07/26/23 = GOAL UPGRADED 1c. 0-10 degrees active L elbow extension. 2. Kari will present with improved functional abilities: 1a. This will be evidenced by Kari's ability to verbalize and/or demonstrate use of 2 to 3 different AE/modification /compensatory strategies in the home. 05/18/23 = Uses notebook for writing; uses AE cutting board equipped w/ 2 prongs, 'jarrett' , and suction cups positioned on bottom of board GOALS MET 0-35 degrees active L shoulder flexion. *MET 07/25/24 vs initial 0-25 degrees L sh flex 0-55 degrees active L shoulder abduction. *MET 07/26/23 vs initial 0-35 degrees L sh abd 0-45 degrees active L shoulder abduction. *MET 05/18/23 vs initial 0-35 degrees L sh abd [facility] Goals 1. Kari will be modified independent with execution of home exercise program utilizing provided written and visual instructions from therapist as needed. 07/26/23 = 50% met - Exercises 12 Descriptor ROM using TT. Scapular protraction/rhomboid stretch. Use of TT. Hold for 45-60 sec. Sh flex w/ elbow ext w/ use of edge of TT. Hold for 45-60 sec. 11 Descriptor Seated UE strengthening. Sh ext. TB #2. 3 x 10. Scapular retraction. Modified. TB #2. 3 x 10. Upright row. TB #2. 3 x 10. 10 Descriptor Red flex-bar. Supination. 3 x 10. Pronation. 4 x 10. Modified twist. 3 x 10. 7 Descriptor PROM Passive hook fist x 1, x 30 sec hold. Passive ER. Passive sh hor abd & ER w/ use of yoga ball. Passive UE diagonal R hip -> to L of body. 1 x 10. Passive forearm supination w/ elbow ext w/ use of knee and working towards wrist ext (vs PROM exercise below). Passive wrist/digit extension w/ modified prayer w/ clasped fingers w/ bringing wrists towards base of support. N/A 09/09/23 Passive distal UE stretch at EOM. Combo of sh ext, elbow ext, forearm supination, wrist ext, digit flex/ext x 30 sec. 6 Descriptor Arm Pulleys. Seated. x 7 minutes. *Rec use of ball to support upright posture/ discourage trunk extension. 2 Descriptor Seated UE exercises. Elbow flex. 90 degrees flex -> end range. 2 x 10. Sh add w/ focus on bringing elbow to side of body vs winging/or typical jessica pattern posturing/motor movement. 2 x 10. Seated row. Use of half bolster to discourage winging/ or typical jessica pattern posturing/motor movement (IR). 2 x 10. N/A 08/08/23 Wrist flex. 3 x 10. Elbow 90 degrees flex; forearm in neutral. Blocking provided by therapist. Focus on wrist flex -> then relaxation. Wrist ext. Muscle tapping to facilitate. 3 x 10. Seated row w/ sh abd. 3 x 10. Reaching across L -> R hip. 3 x 10. Positioning of L UE at L knee -> R hip. 3 x 10. Forearm supination. 3 x 10. PNF diagonal. L knee --> R shoulder; facilitated by clinician near end range. 2 x 10. - Assessment Assessment of Improvement Cont use of yoga ball for range of motion/replication of functional scapular retraction/protraction w/ elbow flex/ext. Handling of distal UE influences proximal UE motor planning. Rec use of pulleys vs moving in and out of elbow flex w/ arm bike. Instructed in use of TT for sh flex w/ elbow ext and rhomboid/post shoulder stretch ; (-) need to maintain L handed grasp of edge of table to successfully execute this exercise. Rec cont inclusion of slanted/ diagonal surfaces and tone management/passive range of motion exercises. Rec consideration of e-stim combined w/ neuro motor retraining/UE motor planning. Rec revisiting use of half bolster/roll for UE motor breakdown and to discourage pattern of winging, sh abd w/ IR and forearm pronation; phys assist to facilitate. Continued outpatient OT is recommended to address L UE function, including but not limited to active range of motion, tone management, motor planning, awareness of L UE in space, education re: AE/ modification/compensatory strategies to support functional abilities. Home Exercise Program 09/16/23 = Rhomboid stretch; use of R UE to facilitate. Rec to complete this stretch on TT to support elbow ext. Hold for 45-60 sec. 09/09/23 = Passive elbow ext w/ forearm supination w/ use of ipsilateral L knee for blocking; hold for 20-30 sec or more. Add wrist ext as geo/ as able to do so. Passive wrist ext w/ modified prayer w / fingers clasping if needed and bringing wrists to base of support; hold for 20-30 sec or more. These PROM exercises rec vs positioning of L UE to left of body combinining elbow ext, forearm supination, wrist/digit ext. 06/01/23 = Discussed combo sh ext, elbow ext, forearm sup, wrist ext seated w/ blocking of elbow to support elbow ext w/ ability to modify degree of stretch w/ trunk ext (moving from trunk flexion -> upright seated position). 04/26/23 = Discussed potential use of arm pulleys for home use; instructed in passive hor abd/ER stretch w/ use of TT w / trunk flex. Rec 2-3 times w/ hold of 20 - 30 sec+. 04/07/23 = Provided with square of dycem for home use to assist w/ L handed grasp or other functional activities ( as identified). Instructed in use of horizontal bar for weight bearing/tone management , motor re-training/grasp; Kari to identify alt option in the home to support carry- over. 03/17/23 = Rec completion of UE tone management exercises daily; passively stretching L UE out of typical jessica pattern daily (which would include daily execution of modified ER stretch supine, for 20 to 30+ sec, 2-3 repetitions based on response in today's session, w/ use of pillow support for L elbow w/ support of family member, and possible use of heat for 5-10 minutes as tolerated/w/ temperature skin being monitored given change in UE sensation). 03/09/23 = Motor planning sh add; rec use of TT 3 x 10 every other day or 3 x a week. - Plan Therapy Recommendations Advance per Rehabilitation Protocol Therapeutic Contents Modalities Modalities As Needed,As Prescribed Additional Types of Modalities Heat/Ice/Contrast/Ultrasound/E -stim
--- NOTE | 2023-09-26 15:48 | OT.OP.TRT ---
Visit Care Team Role Provider Type Kristian Kim MD Attending Provider Physician Family Provider Primary Care Provider Referring Provider Specialty: Family Practice Address: [address] [place] [address], [facility] [place] [facility] Email: [email or web address] Occupational Therapy Treatment Note OT Outpatient Treatment Note - Adult Start: 03/02/23 09:26 Freq: Status: Active Protocol: Document 09/26/23 15:43 AMS (Rec: 09/26/23 15:44 AMS [id number]) OT Outpatient Adult Treatment Note Session Time Visit Start Time 13:45 Visit Stop Time 14:30 Visit Information Visit Number 12/19; --> visit KX modifier Plan of Care Dates 07/26/23 - 10/04/23 Insurance Information Medicare Setting Treatment Setting Outpatient Care Visit Type Note Type Treatment Note General Information General Information Kari is a 67 year-old R hand dominant male referred to outpatient OT by PCP d/t L UE weakness secondary to stroke that occurred in June of 2022 . Medical history: Blood pressure, CHF, h/o falls, h/o R rotator cuff tear. Kari reported that he resides w/ his and son (Santana) who are available to assist him; they reside in a 4-story home (w/ bedroom and bath on 3rd floor of home). The [place] also [place] He is retired. He has modified a brief case to assist w/ transporting of items which is equipped w/ cross body strap; use of countertops to transport items via sliding. (+) 1-handed buttoning noted w/ R hand. Sleeps on R side since having stroke. completes meal prep in home. He presents ambulating w/ SPC (he progressed from manual w/c --> hemiwalker --> SPC). He has received home health PT and is currently being seen in the outpatient clinic at [facility] by PT. AFO has been rec by PT; he presented without AFO. He was reportedly previously seen by speech and discharged d/t no concerns re: cognition, speech, and/or swallow. He was seen by [facility] OT. He is not using L UE sling and/or distal UE splint. He does have a home e-stim unit; he is actively stretching the L hand/digits into extension to maintain available range of motion. - Subjective Observations Cont reported difficulties w/ moving affected UE out of typical jessica pattern; difficulties with grasp and release, elbow extension, shoulder external rotation, shoulder abduction and wrist extension. Reports inability to actively RD or UD. Denies any L shoulder pain/discomfort associated w/ sh subluxation. Cont to work on balance w/ PT w/ gait; cont to work towards ambulation without mobility AE (without cane use). Reported (-) use of cane yesterday in home environment. 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 20 degrees active L sh ext vs initial 20 degrees. 03/01/23 = (+) mild L g/h/sh subluxation. (+) active L sh elevation; (+) L scapular retraction noted w/ L sh elevation. Goniometer measurements were completed in sitting; 25 degrees active L sh flexion; 20 degrees active L sh extension; 35 degrees active L sh abd; 95 degrees active L elbow flexion; full active L forearm pronation; (- ) active forearm supination; ( -) active L elbow ext; 25 degrees active L wrist flex; ( -) active L wrist ext; full active L sh IR; (-) active L sh ER. 20.0# of force L e commerce merchant w / dynamometer II testing w/ elbow in 90 degrees flexion. Short Term Goals 1. Kari will present with improved active range of motion of the left upper extremity, this will be evidenced by the followina. 0-40 degrees active L shoulder flexion. 07/26/23 = GOAL UPGRADED 1b. 0-60 degrees active L shoulder abduction. 07/26/23 = GOAL UPGRADED 1c. 0-10 degrees active L elbow extension. 2. Kari will present with improved functional abilities: 1a. This will be evidenced by Kari's ability to verbalize and/or demonstrate use of 2 to 3 different AE/modification /compensatory strategies in the home. 05/18/23 = Uses notebook for writing; uses AE cutting board equipped w/ 2 prongs, 'jarrett' , and suction cups positioned on bottom of board GOALS MET 0-35 degrees active L shoulder flexion. *MET 07/25/24 vs initial 0-25 degrees L sh flex 0-55 degrees active L shoulder abduction. *MET 07/26/23 vs initial 0-35 degrees L sh abd 0-45 degrees active L shoulder abduction. *MET 05/18/23 vs initial 0-35 degrees L sh abd Special Needs Caregiver Goals 1. Kari will be modified independent with execution of home exercise program utilizing provided written and visual instructions from therapist as needed. 07/26/23 = 50% met - Exercises 12 Descriptor ROM using TT. Scapular protraction/rhomboid stretch. Use of TT. Hold for 45-60 sec. Sh flex w/ elbow ext w/ use of edge of TT. Hold for 45-60 sec. 10 Descriptor Red flex-bar. Supination. 3 x 10. Pronation. 4 x 10. Modified twist. 3 x 10. 7 Descriptor PROM Passive hook fist x 1, x 30 sec hold. Passive ER. Passive sh hor abd & ER w/ use of yoga ball. Passive UE diagonal R hip -> to L of body. 1 x 10. Passive forearm supination w/ elbow ext w/ use of knee and working towards wrist ext (vs PROM exercise below). Passive wrist/digit extension w/ modified prayer w/ clasped fingers w/ bringing wrists towards base of support. N/A 09/09/23 Passive distal UE stretch at EOM. Combo of sh ext, elbow ext, forearm supination, wrist ext, digit flex/ext x 30 sec. 6 Descriptor Arm Pulleys. Seated. x 7 minutes. *Rec use of ball to support upright posture/ discourage trunk extension. 2 Descriptor Seated UE exercises. Elbow flex. 90 degrees flex -> end range. 2 x 10. Sh add w/ focus on bringing elbow to side of body vs winging/or typical jessica pattern posturing/motor movement. 2 x 10. Seated row. Use of half bolster to discourage winging/ or typical jessica pattern posturing/motor movement (IR). 2 x 10. N/A 08/08/23 Wrist flex. 3 x 10. Elbow 90 degrees flex; forearm in neutral. Blocking provided by therapist. Focus on wrist flex -> then relaxation. Wrist ext. Muscle tapping to facilitate. 3 x 10. Seated row w/ sh abd. 3 x 10. Reaching across L -> R hip. 3 x 10. Positioning of L UE at L knee -> R hip. 3 x 10. Forearm supination. 3 x 10. PNF diagonal. L knee --> R shoulder; facilitated by clinician near end range. 2 x 10. - Assessment Assessment of Improvement Report of attempt at use of L hand to hold onto jar w/ R hand opening jar. Cont use of yoga ball for range of motion/ replication of functional scapular retraction/ protraction w/ elbow flex/ext. Handling of distal UE influences proximal UE motor planning. Rec use of pulleys vs moving in and out of elbow flex w/ arm bike. (-) active wrist flexion observed despite elbow ext/use of medial L knee to release steward bag; inability to release steward bag w/ L hand was observed in sitting and in standing. Instructed in use of TT for sh flex w/ elbow ext and rhomboid/post shoulder stretch ; (-) need to maintain L handed grasp of edge of table to successfully execute this exercise. May want to trial retraining sh ext w/ elbow ext w/ use of e-stim program. Rec cont inclusion of slanted/ diagonal surfaces and tone management/passive range of motion exercises. Rec consideration of e-stim combined w/ neuro motor retraining/UE motor planning. Rec revisiting use of half bolster/roll for UE motor breakdown and to discourage pattern of winging, sh abd w/ IR and forearm pronation; phys assist to facilitate. Continued outpatient OT is recommended to address L UE function, including but not limited to active range of motion, tone management, motor planning, awareness of L UE in space, education re: AE/ modification/compensatory strategies to support functional abilities. Home Exercise Program 09/16/23 = Rhomboid stretch; use of R UE to facilitate. Rec to complete this stretch on TT to support elbow ext. Hold for 45-60 sec. 09/09/23 = Passive elbow ext w/ forearm supination w/ use of ipsilateral L knee for blocking; hold for 20-30 sec or more. Add wrist ext as geo/ as able to do so. Passive wrist ext w/ modified prayer w / fingers clasping if needed and bringing wrists to base of support; hold for 20-30 sec or more. These PROM exercises rec vs positioning of L UE to left of body combinining elbow ext, forearm supination, wrist/digit ext. 06/01/23 = Discussed combo sh ext, elbow ext, forearm sup, wrist ext seated w/ blocking of elbow to support elbow ext w/ ability to modify degree of stretch w/ trunk ext (moving from trunk flexion -> upright seated position). 04/26/23 = Discussed potential use of arm pulleys for home use; instructed in passive hor abd/ER stretch w/ use of TT w / trunk flex. Rec 2-3 times w/ hold of 20 - 30 sec+. 04/07/23 = Provided with square of dycem for home use to assist w/ L handed grasp or other functional activities ( as identified). Instructed in use of horizontal bar for weight bearing/tone management , motor re-training/grasp; Kari to identify alt option in the home to support carry- over. 03/17/23 = Rec completion of UE tone management exercises daily; passively stretching L UE out of typical jessica pattern daily (which would include daily execution of modified ER stretch supine, for 20 to 30+ sec, 2-3 repetitions based on response in today's session, w/ use of pillow support for L elbow w/ support of family member, and possible use of heat for 5-10 minutes as tolerated/w/ temperature skin being monitored given change in UE sensation). 03/09/23 = Motor planning sh add; rec use of TT 3 x 10 every other day or 3 x a week. - Plan Therapy Recommendations Advance per Rehabilitation Protocol Additional Therapy Recommendations Complete POC at time of next session Therapeutic Contents Modalities Modalities As Needed,As Prescribed Additional Types of Modalities Heat/Ice/Contrast/Ultrasound/E -stim
--- NOTE | 2023-10-04 16:02 | OT.OPPOC ---
Physical, Occupational & Speech Therapy At [facility] Kari Figueroa I [id number] 1955 Visit Care Team Role Provider Type Kristian Kim MD Attending Provider Physician Family Provider Primary Care Provider Referring Provider Address: [address] [place] [address], [id number] Occupational Therapy Plan of Care OT Outpatient Adult Evaluation Start: 03/02/23 09:26 Freq: Status: Active Protocol: Document 03/01/23 16:00 AMS (Rec: 03/02/23 10:04 AMS [id number]) General Information - Adult Visit Information Visit Number 04/20; 04/29 --> visit KX Modifier Plan of Care Dates 03/01/23 - 05/24/23 Insurance Information Medicare Session Time Visit Start Time 08:45 Visit Stop Time 09:40 Total Visit Minutes 55 Goals Treatment Treatment Tone management/wegiht bearing /weight shifting. Short Term Goals Short Term Goals 1. Kari will present with improved active range of motion of the left upper extremity, this will be evidenced by the followina. 35 degrees active L shoulder flexion. 1b. 45 degrees active L shoulder abduction. 1c. 10 degrees active L elbow extension. 2. Kari will present with improved functional abilities; this will be evidenced by ability to verbalize and/or demonstrate use of 2 to 3 different AE/ modification/compensatory strategies in the home. Hospital Education Coordinator Goals Senior Care Goals 1. Kari will be modified independent with execution of home exercise program utilizing provided written and visual instructions from therapist as needed. Assessment/Plan Assessment Treatment Assessment Kari is a 67 year-old R hand dominant male referred to outpatient OT by PCP d/t L UE weakness secondary to stroke that occurred in June of 2022 . Medical history: Blood pressure, CHF, h/o falls, h/o R rotator cuff tear. Kari reported that he resides w/ his and son (Santana) who are available to assist him; they reside in a 4-story home (w/ bedroom and bath on 3rd floor of home) and he is retired. He has modified a brief case to assist w/ transporting of items which is equipped w/ cross body strap; use of countertops to transport items via sliding. ( +) 1-handed buttoning noted w/ R hand. Sleeps on R side since having stroke. completes meal prep in home. He presents ambulating w/ SPC (he progressed from manual w/c --> hemiwalker --> SPC). He has received home health PT and is currently being seen in the outpatient clinic at [facility] by PT. AFO has been rec by PT; he presented without AFO. He was reportedly previously seen by speech and discharged d/t no concerns re : cognition, speech, and/or swallow. He was seen by [facility] OT. He is not using L UE sling and/or distal UE splint. He does have a home e-stim unit; he is actively stretching the L hand/digits into extension to maintain available range of motion. Patient Goals: Address L UE function. Pain Assessment Grid completed ; no pain/discomfort indicated . Denial of any changes in sensation of L UE. QuickDASH UE Outcome Measure Score = 20. 45; QuickDASH Sports/ Performing Arts Module Score = 100.00 (hobbies included pickleball, scuba diving, playing the [place]ound, riding motorcycles). (+) mild L g/h/sh subluxation. (+) active L sh elevation; (+) L scapular retraction noted w/ L sh elevation. Goniometer measurements were completed in sitting; 25 degrees active L sh flexion; 20 degrees active L sh extension; 35 degrees active L sh abd; 95 degrees active L elbow flexion; full active L forearm pronation; (- ) active forearm supination; ( -) active L elbow ext; 25 degrees active L wrist flex; ( -) active L wrist ext; full active L sh IR; (-) active L sh ER. 20.0# of force L senior media buyer w / dynamometer II testing w/ elbow in 90 degrees flexion. ( +) flexor tone pattern/typical UE jessica pattern observed w/ active movement. Good weight shifting L <-> R seated at EOM ; able to maintain both feet on floor w/ trunk ext. Outpatient OT is recommended to address L UE function, including but not limited to active range of motion, tone management, motor planning, awareness of L UE in space, education re: AE/modification/ compensatory strategies to support functional abilities. Plan Length of treatment (weeks) 12 Plan of Care Start Date 03/01/23 Plan of Care End Date 05/24/23 Treatment Frequency Once a Week Therapeutic Contents Active Range of Motion, Adaptive Equipment Education, Functional Activities,Home Exercise Program,Joint Protection,Manual Therapy, Education,Neurodevelopment Treatment,Neuromuscular Re- Education,Self-Care,Stretching /Flexibility Activities, Therapeutic Activities, Therapeutic Exercises, Modalities Modalities As Needed,As Prescribed Additional Types of Modalities Heat/Ice/Contrast Baths/ Ultrasound/E-stim Functional Wrist/Hand Scan Hand Side Sensory Assessment Sensory Profile2 OT Outpatient Treatment Note - Adult Start: 03/02/23 09:26 Freq: Status: Active Protocol: Document 10/04/23 15:54 AMS (Rec: 10/04/23 16:01 AMS [id number]) OT Outpatient Adult Treatment Note Session Time Visit Start Time 13:45 Visit Stop Time 14:30 Visit Information Visit Number 04/20; --> visit KX modifier Plan of Care Dates 10/04/23 - 12/13/23 Insurance Information Medicare Setting Treatment Setting Outpatient Care Visit Type Note Type Progress Note General Information General Information Kari is a 67 year-old R hand dominant male referred to outpatient OT by PCP d/t L UE weakness secondary to stroke that occurred in June of 2022 . Medical history: Blood pressure, CHF, h/o falls, h/o R rotator cuff tear. Kari reported that he resides w/ his and son (Santana) who are available to assist him; they reside in a 4-story home (w/ bedroom and bath on 3rd floor of home). The [place] also [place] [address] [place] He is retired. He has modified a brief case to assist w/ transporting of items which is equipped w/ cross body strap; use of countertops to transport items via sliding. (+) 1-handed buttoning noted w/ R hand. Sleeps on R side since having stroke. completes meal prep in home. He presents ambulating w/ SPC (he progressed from manual w/c --> hemiwalker --> SPC). He has received home health PT and is currently being seen in the outpatient clinic at [facility] by PT. AFO has been rec by PT; he presented without AFO. He was reportedly previously seen by speech and discharged d/t no concerns re: cognition, speech, and/or swallow. He was seen by [facility] OT. He is not using L UE sling and/or distal UE splint. He does have a home e-stim unit; he is actively stretching the L hand/digits into extension to maintain available range of motion. - Subjective Observations Cont reported difficulties w/ moving affected UE out of typical jessica pattern; difficulties with grasp and release, elbow extension, shoulder external rotation, shoulder abduction and wrist extension. Reports inability to actively RD or UD. Denies any L shoulder pain/discomfort associated w/ sh subluxation. Patient/Caregiver Compliance with Home Good Exercise Program - Objective Objective Measurements Please refer to below for progress towards meeting established OT goals: 07/26/23 = 40.0# of force L senior media buyer w/ elbow 90 degrees flex vs initial 20.0# of force. 20 degrees active L sh ext vs initial 20 degrees. 03/01/23 = (+) mild L g/h/sh subluxation. (+) active L sh elevation; (+) L scapular retraction noted w/ L sh elevation. Goniometer measurements were completed in sitting; 25 degrees active L sh flexion; 20 degrees active L sh extension; 35 degrees active L sh abd; 95 degrees active L elbow flexion; full active L forearm pronation; (- ) active forearm supination; ( -) active L elbow ext; 25 degrees active L wrist flex; ( -) active L wrist ext; full active L sh IR; (-) active L sh ER. 20.0# of force L senior media buyer w / dynamometer II testing w/ elbow in 90 degrees flexion. Short Term Goals 1. Kari will present with improved active range of motion of the left upper extremity, this will be evidenced by the followina. 0-40 degrees active L shoulder flexion. 07/26/23 = GOAL UPGRADED 1b. 0-60 degrees active L shoulder abduction. 07/26/23 = GOAL UPGRADED 1c. 0-10 degrees active L elbow extension. 2. Kari will present with improved functional abilities: 1a. This will be evidenced by Kari's ability to verbalize and/or demonstrate use of 2 to 3 different AE/modification /compensatory strategies in the home. 05/18/23 = Uses notebook for writing; uses AE cutting board equipped w/ 2 prongs, 'jarrett' , and suction cups positioned on bottom of board GOALS MET 0-35 degrees active L shoulder flexion. *MET 07/25/24 vs initial 0-25 degrees L sh flex 0-55 degrees active L shoulder abduction. *MET 07/26/23 vs initial 0-35 degrees L sh abd 0-45 degrees active L shoulder abduction. *MET 05/18/23 vs initial 0-35 degrees L sh abd Hospital Education Coordinator Goals 1. Kari will be modified independent with execution of home exercise program utilizing provided written and visual instructions from therapist as needed. 10/04/23 = 50% met - Exercises 12 Descriptor ROM using TT. Scapular protraction/rhomboid stretch. Use of TT. Hold for 45-60 sec. Sh flex w/ elbow ext w/ use of edge of TT. Hold for 45-60 sec. 10 Descriptor Red flex-bar. Supination. 3 x 10. Pronation. 4 x 10. Modified twist. 3 x 10. 7 Descriptor PROM Passive hook fist x 1, x 30 sec hold. Passive ER. Passive sh hor abd & ER w/ use of yoga ball. Passive UE diagonal R hip -> to L of body. 1 x 10. Passive forearm supination w/ elbow ext w/ use of knee and working towards wrist ext (vs PROM exercise below). Passive wrist/digit extension w/ modified prayer w/ clasped fingers w/ bringing wrists towards base of support. N/A 09/09/23 Passive distal UE stretch at EOM. Combo of sh ext, elbow ext, forearm supination, wrist ext, digit flex/ext x 30 sec. 6 Descriptor Arm Pulleys. Seated. x 7 minutes. *Rec use of ball to support upright posture/ discourage trunk extension. 2 Descriptor Seated UE exercises. Elbow flex. 90 degrees flex -> end range. 2 x 10. Sh add w/ focus on bringing elbow to side of body vs winging/or typical jessica pattern posturing/motor movement. 2 x 10. Seated row. Use of half bolster to discourage winging/ or typical jessica pattern posturing/motor movement (IR). 2 x 10. N/A 08/08/23 Wrist flex. 3 x 10. Elbow 90 degrees flex; forearm in neutral. Blocking provided by therapist. Focus on wrist flex -> then relaxation. Wrist ext. Muscle tapping to facilitate. 3 x 10. Seated row w/ sh abd. 3 x 10. Reaching across L -> R hip. 3 x 10. Positioning of L UE at L knee -> R hip. 3 x 10. Forearm supination. 3 x 10. PNF diagonal. L knee --> R shoulder; facilitated by clinician near end range. 2 x 10. - Assessment Assessment of Improvement Advancement of L UE home exercise program (see below); cont to explore various modifications to support carry -over and Kari's ability to execute some UE exercises without need for extra support /with modified independence. Kari reports actively incorporating the L UE in daily tasks with varying degrees of success. Rec cont inclusion of slanted/diagonal surfaces and tone management/ passive range of motion exercises. Rec consideration of e-stim combined w/ neuro motor retraining/UE motor planning. Rec revisiting use of half bolster/roll for UE motor breakdown and to discourage pattern of winging, sh abd w/ IR and forearm pronation; phys assist to facilitate. Continued outpatient OT is recommended to address L UE function, including but not limited to active range of motion, tone management, motor planning, awareness of L UE in space, education re: AE/ modification/compensatory strategies to support functional abilities. Home Exercise Program 10/04/23 = L UE WB/range of motion. Use of surface in frontal plane (e.g., stool). Trunk flex w/ hands positioned on stool; facilitation of elbow ext and wrist/digit ext. WB. Hold for 20-30 sec +. 09/16/23 = Rhomboid stretch; use of R UE to facilitate. Rec to complete this stretch on TT to support elbow ext. Hold for 45-60 sec. 09/09/23 = Passive elbow ext w/ forearm supination w/ use of ipsilateral L knee for blocking; hold for 20-30 sec or more. Add wrist ext as geo/ as able to do so. Passive wrist ext w/ modified prayer w / fingers clasping if needed and bringing wrists to base of support; hold for 20-30 sec or more. These PROM exercises rec vs positioning of L UE to left of body combinining elbow ext, forearm supination, wrist/digit ext. 06/01/23 = Discussed combo sh ext, elbow ext, forearm sup, wrist ext seated w/ blocking of elbow to support elbow ext w/ ability to modify degree of stretch w/ trunk ext (moving from trunk flexion -> upright seated position). 04/26/23 = Discussed potential use of arm pulleys for home use; instructed in passive hor abd/ER stretch w/ use of TT w / trunk flex. Rec 2-3 times w/ hold of 20 - 30 sec+. 04/07/23 = Provided with square of dycem for home use to assist w/ L handed grasp or other functional activities ( as identified). Instructed in use of horizontal bar for weight bearing/tone management , motor re-training/grasp; Kari to identify alt option in the home to support carry- over. 03/17/23 = Rec completion of UE tone management exercises daily; passively stretching L UE out of typical jessica pattern daily (which would include daily execution of modified ER stretch supine, for 20 to 30+ sec, 2-3 repetitions based on response in today's session, w/ use of pillow support for L elbow w/ support of family member, and possible use of heat for 5-10 minutes as tolerated/w/ temperature skin being monitored given change in UE sensation). 03/09/23 = Motor planning sh add; rec use of TT 3 x 10 every other day or 3 x a week. - Plan Therapy Recommendations Advance per Rehabilitation Protocol Comment 10 weeks Frequency of Treatment Once a Week Therapeutic Contents Active Range of Motion, Adaptive Equipment Education, Client Education,Functional Activities,Home Exercise Program,Joint Protection, Manual Therapy,Education, Neurodevelopment Treatment, Neuromuscular Re-Education, Self-Care,Stretching/ Flexibility Activities, Therapeutic Activities, Therapeutic Exercises, Modalities Modalities As Needed,As Prescribed Additional Types of Modalities Heat/Ice/Contrast/Ultrasound/E -stim Electronically Signed by: Juliet Delatorre, OT 10/04/23 9126 If you are in agreement with this Plan of Care, please return a signed and dated copy. I have reviewed this Plan of Care and certify that the skilled therapy services above are required to meet the patient?s needs. Physician Signature Date Printed Name and Credentials Clinical Instructor Signature Printed Name and Credentials
--- NOTE | 2023-10-10 13:17 | OT.OP.TRT ---
Visit Care Team Role Provider Type Kristian Kim MD Attending Provider Physician Family Provider Primary Care Provider Referring Provider Specialty: Family Practice Address: [address] [place] [address], [facility] Email: [email or web address] Occupational Therapy Treatment Note OT Outpatient Treatment Note - Adult Start: 03/02/23 09:26 Freq: Status: Active Protocol: Document 10/10/23 13:13 AMS (Rec: 10/10/23 13:17 AMS [id number]) OT Outpatient Adult Treatment Note Session Time Visit Start Time 13:45 Visit Stop Time 14:30 Visit Information Visit Number 05/21; --> visit KX modifier Plan of Care Dates 10/04/23 - 12/13/23 Insurance Information Medicare Setting Treatment Setting Outpatient Care Visit Type Note Type Progress Note General Information General Information Kari is a 67 year-old R hand dominant male referred to outpatient OT by PCP d/t L UE weakness secondary to stroke that occurred in June of 2022 . Medical history: Blood pressure, CHF, h/o falls, h/o R rotator cuff tear. Kari reported that he resides w/ his and son (Santana) who are available to assist him; they reside in a 4-story home (w/ bedroom and bath on 3rd floor of home). [place] also [place] [address] [place] He is retired. He has modified a brief case to assist w/ transporting of items which is equipped w/ cross body strap; use of countertops to transport items via sliding. (+) 1-handed buttoning noted w/ R hand. Sleeps on R side since having stroke. completes meal prep in home. He presents ambulating w/ SPC (he progressed from manual w/c --> hemiwalker --> SPC). He has received home health PT and is currently being seen in the outpatient clinic at [facility] by PT. AFO has been rec by PT; he presented without AFO. He was reportedly previously seen by speech and discharged d/t no concerns re: cognition, speech, and/or swallow. He was seen by [facility] OT. He is not using L UE sling and/or distal UE splint. He does have a home e-stim unit; he is actively stretching the L hand/digits into extension to maintain available range of motion. - Subjective Observations (+) awareness and ability to execute 1-handed opening of jar w/ screw top lid. Cont reported difficulties w/ moving affected UE out of typical jsesica pattern; difficulties with grasp and release, elbow extension, shoulder external rotation, shoulder abduction and wrist extension. Reports inability to actively RD or UD. Denies any L shoulder pain/discomfort associated w/ sh subluxation. Patient/Caregiver Compliance with Home Good Exercise Program - Objective Objective Measurements Please refer to below for progress towards meeting established OT goals: 07/26/23 = 40.0# of force L general office dispatcher w/ elbow 90 degrees flex vs initial 20.0# of force. 20 degrees active L sh ext vs initial 20 degrees. 03/01/23 = (+) mild L g/h/sh subluxation. (+) active L sh elevation; (+) L scapular retraction noted w/ L sh elevation. Goniometer measurements were completed in sitting; 25 degrees active L sh flexion; 20 degrees active L sh extension; 35 degrees active L sh abd; 95 degrees active L elbow flexion; full active L forearm pronation; (- ) active forearm supination; ( -) active L elbow ext; 25 degrees active L wrist flex; ( -) active L wrist ext; full active L sh IR; (-) active L sh ER. 20.0# of force L general office dispatcher w / dynamometer II testing w/ elbow in 90 degrees flexion. Short Term Goals 1. Kari will present with improved active range of motion of the left upper extremity, this will be evidenced by the followina. 0-40 degrees active L shoulder flexion. 07/26/23 = GOAL UPGRADED 1b. 0-60 degrees active L shoulder abduction. 07/26/23 = GOAL UPGRADED 1c. 0-10 degrees active L elbow extension. 2. Kari will present with improved functional abilities: 1a. This will be evidenced by Kari's ability to verbalize and/or demonstrate use of 2 to 3 different AE/modification /compensatory strategies in the home. 05/18/23 = Uses notebook for writing; uses AE cutting board equipped w/ 2 prongs, 'jarrett' , and suction cups positioned on bottom of board GOALS MET 0-35 degrees active L shoulder flexion. *MET 07/25/24 vs initial 0-25 degrees L sh flex 0-55 degrees active L shoulder abduction. *MET 07/26/23 vs initial 0-35 degrees L sh abd 0-45 degrees active L shoulder abduction. *MET 05/18/23 vs initial 0-35 degrees L sh abd Crisis Therapist Goals 1. Kari will be modified independent with execution of home exercise program utilizing provided written and visual instructions from therapist as needed. 10/04/23 = 50% met - Exercises 12 Descriptor ROM using TT. Scapular protraction/rhomboid stretch. Use of TT. Hold for 45-60 sec. Sh flex w/ elbow ext w/ use of edge of TT. Hold for 45-60 sec. 10 Descriptor Red flex-bar. Supination. 3 x 10. Pronation. 4 x 10. Modified twist. 3 x 10. 7 Descriptor PROM Passive hook fist x 1, x 30 sec hold. Passive ER. Passive sh hor abd & ER w/ use of yoga ball. Passive UE diagonal R hip -> to L of body. 1 x 10. Passive forearm supination w/ elbow ext w/ use of knee and working towards wrist ext (vs PROM exercise below). Passive wrist/digit extension w/ modified prayer w/ clasped fingers w/ bringing wrists towards base of support. N/A 09/09/23 Passive distal UE stretch at EOM. Combo of sh ext, elbow ext, forearm supination, wrist ext, digit flex/ext x 30 sec. 6 Descriptor Arm Pulleys. Seated. x 7 minutes. *Rec use of ball to support upright posture/ discourage trunk extension. 2 Descriptor Seated UE exercises. Elbow flex. 90 degrees flex -> end range. 2 x 10. Sh add w/ focus on bringing elbow to side of body vs winging/or typical jessica pattern posturing/motor movement. 2 x 10. Seated row. Use of half bolster to discourage winging/ or typical jessica pattern posturing/motor movement (IR). 2 x 10. N/A 08/08/23 Wrist flex. 3 x 10. Elbow 90 degrees flex; forearm in neutral. Blocking provided by therapist. Focus on wrist flex -> then relaxation. Wrist ext. Muscle tapping to facilitate. 3 x 10. Seated row w/ sh abd. 3 x 10. Reaching across L -> R hip. 3 x 10. Positioning of L UE at L knee -> R hip. 3 x 10. Forearm supination. 3 x 10. PNF diagonal. L knee --> R shoulder; facilitated by clinician near end range. 2 x 10. - Assessment Assessment of Improvement Advancement of L UE home exercise program (see below); cont to explore various modifications to support carry -over and Kari's ability to execute some UE exercises without need for extra support /with modified independence. Kari reports actively incorporating the L UE in daily tasks with varying degrees of success. Rec cont inclusion of slanted/diagonal surfaces and tone management/ passive range of motion exercises. Rec consideration of e-stim combined w/ neuro motor retraining/UE motor planning. Rec revisiting use of half bolster/roll for UE motor breakdown and to discourage pattern of winging, sh abd w/ IR and forearm pronation; phys assist to facilitate. Continued outpatient OT is recommended to address L UE function, including but not limited to active range of motion, tone management, motor planning, awareness of L UE in space, education re: AE/ modification/compensatory strategies to support functional abilities. Home Exercise Program 10/10/23 = Trunk flex w/ UE support for balance (bent over rows). 3 x 10. Isometric hold for 3-5 sec to increase diff. Try to fully extend elbow and keep elbow in w/ row. 10/04/23 = Use of surface in frontal plane (e.g., stool). Trunk flex w/ hands positioned on stool; facilitation of elbow ext and wrist/digit ext. WB. Hold for 20-30+ sec. 09/16/23 = Rhomboid stretch; use of R UE to facilitate. Rec to complete this stretch on TT to support elbow ext. Hold for 45-60 sec. 09/09/23 = Passive elbow ext w/ forearm supination w/ use of ipsilateral L knee for blocking; hold for 20-30 sec or more. Add wrist ext as geo/ as able to do so. Passive wrist ext w/ modified prayer w / fingers clasping if needed and bringing wrists to base of support; hold for 20-30 sec or more. These PROM exercises rec vs positioning of L UE to left of body combinining elbow ext, forearm supination, wrist/digit ext. 06/01/23 = Discussed combo sh ext, elbow ext, forearm sup, wrist ext seated w/ blocking of elbow to support elbow ext w/ ability to modify degree of stretch w/ trunk ext (moving from trunk flexion -> upright seated position). 04/26/23 = Discussed potential use of arm pulleys for home use; instructed in passive hor abd/ER stretch w/ use of TT w / trunk flex. Rec 2-3 times w/ hold of 20 - 30 sec+. 04/07/23 = Provided with square of dycem for home use to assist w/ L handed grasp or other functional activities ( as identified). Instructed in use of horizontal bar for weight bearing/tone management , motor re-training/grasp; Kari to identify alt option in the home to support carry- over. 03/17/23 = Rec completion of UE tone management exercises daily; passively stretching L UE out of typical jessica pattern daily (which would include daily execution of modified ER stretch supine, for 20 to 30+ sec, 2-3 repetitions based on response in today's session, w/ use of pillow support for L elbow w/ support of family member, and possible use of heat for 5-10 minutes as tolerated/w/ temperature skin being monitored given change in UE sensation). 03/09/23 = Motor planning sh add; rec use of TT 3 x 10 every other day or 3 x a week. - Plan Therapy Recommendations Advance per Rehabilitation Protocol Modalities As Needed,As Prescribed Additional Types of Modalities Heat/Ice/Contrast/Ultrasound/E -stim
--- NOTE | 2023-11-02 15:29 | OT.OP.TRT ---
Visit Care Team Role Provider Type Kristian Kim MD Attending Provider Physician Family Provider Primary Care Provider Referring Provider Specialty: Family Practice Address: [address] [place] [address], [facility] Email: [email or web address] Occupational Therapy Treatment Note OT Outpatient Treatment Note - Adult Start: 03/02/23 09:26 Freq: Status: Active Protocol: Document 11/02/23 15:25 AMS (Rec: 11/02/23 15:29 AMS [id number]) OT Outpatient Adult Treatment Note Session Time Visit Start Time 11:30 Visit Stop Time 12:00 Visit Information Visit Number 06/18; --> visit KX modifier Plan of Care Dates 10/04/23 - 12/13/23 Insurance Information Medicare Setting Treatment Setting Outpatient Care Visit Type Note Type Treatment Note General Information General Information Kari is a 67 year-old R hand dominant male referred to outpatient OT by PCP d/t L UE weakness secondary to stroke that occurred in June of 2022 . Medical history: Blood pressure, CHF, h/o falls, h/o R rotator cuff tear. Kari reported that he resides w/ his and son (Santana) who are available to assist him; they reside in a 4-story home (w/ bedroom and bath on 3rd floor of home). The [place] also [place] on [facility] [place] He is retired. He has modified a brief case to assist w/ transporting of items which is equipped w/ cross body strap; use of countertops to transport items via sliding. (+) 1-handed buttoning noted w/ R hand. Sleeps on R side since having stroke. completes meal prep in home. He presents ambulating w/ SPC (he progressed from manual w/c --> hemiwalker --> SPC). He has received home health PT and is currently being seen in the outpatient clinic at [facility] by PT. AFO has been rec by PT; he presented without AFO. He was reportedly previously seen by speech and discharged d/t no concerns re: cognition, speech, and/or swallow. He was seen by [facility] OT. He is not using L UE sling and/or distal UE splint. He does have a home e-stim unit; he is actively stretching the L hand/digits into extension to maintain available range of motion. - Subjective Observations Report of illness over the past 3 weeks which has negatively been impacting his sleep; has not yet seen PCP. ( +) awareness and ability to execute 1-handed opening of jar w/ screw top lid. Cont reported difficulties w/ moving affected UE out of typical jessica pattern; difficulties with grasp and release, elbow extension, shoulder external rotation, shoulder abduction and wrist extension. Reports inability to actively RD or UD. Denies any L shoulder pain/discomfort associated w/ L sh subluxation. Patient/Caregiver Compliance with Home Good Exercise Program - Objective Objective Measurements Please refer to below for progress towards meeting established OT goals: 07/26/23 = 40.0# of force L night supervisor w/ elbow 90 degrees flex vs initial 20.0# of force. 20 degrees active L sh ext vs initial 20 degrees. 03/01/23 = (+) mild L g/h/sh subluxation. (+) active L sh elevation; (+) L scapular retraction noted w/ L sh elevation. Goniometer measurements were completed in sitting; 25 degrees active L sh flexion; 20 degrees active L sh extension; 35 degrees active L sh abd; 95 degrees active L elbow flexion; full active L forearm pronation; (- ) active forearm supination; ( -) active L elbow ext; 25 degrees active L wrist flex; ( -) active L wrist ext; full active L sh IR; (-) active L sh ER. 20.0# of force L night supervisor w / dynamometer II testing w/ elbow in 90 degrees flexion. Short Term Goals 1. Kari will present with improved active range of motion of the left upper extremity, this will be evidenced by the followina. 0-40 degrees active L shoulder flexion. 07/26/23 = GOAL UPGRADED 1b. 0-60 degrees active L shoulder abduction. 07/26/23 = GOAL UPGRADED 1c. 0-10 degrees active L elbow extension. 2. Kari will present with improved functional abilities: 1a. This will be evidenced by Kari's ability to verbalize and/or demonstrate use of 2 to 3 different AE/modification /compensatory strategies in the home. 05/18/23 = Uses notebook for writing; uses AE cutting board equipped w/ 2 prongs, 'jarrett' , and suction cups positioned on bottom of board GOALS MET 0-35 degrees active L shoulder flexion. *MET 07/25/24 vs initial 0-25 degrees L sh flex 0-55 degrees active L shoulder abduction. *MET 07/26/23 vs initial 0-35 degrees L sh abd 0-45 degrees active L shoulder abduction. *MET 05/18/23 vs initial 0-35 degrees L sh abd Political Science Instructor Goals 1. Kari will be modified independent with execution of home exercise program utilizing provided written and visual instructions from therapist as needed. 10/04/23 = 50% met - Exercises 12 Descriptor ROM using TT. Scapular protraction/rhomboid stretch. Use of TT. Hold for 45-60 sec. Sh flex w/ elbow ext w/ use of edge of TT. Hold for 45-60 sec. 10 Descriptor Red flex-bar. Supination. 3 x 10. Pronation. 4 x 10. Modified twist. 3 x 10. 7 Descriptor PROM Passive hook fist x 1, x 30 sec hold. Passive ER. Passive sh hor abd & ER w/ use of yoga ball. Passive UE diagonal R hip -> to L of body. 1 x 10. Passive forearm supination w/ elbow ext w/ use of knee and working towards wrist ext (vs PROM exercise below). Passive wrist/digit extension w/ modified prayer w/ clasped fingers w/ bringing wrists towards base of support. N/A 09/09/23 Passive distal UE stretch at EOM. Combo of sh ext, elbow ext, forearm supination, wrist ext, digit flex/ext x 30 sec. 6 Descriptor Arm Pulleys. Seated. x 7 minutes. *Rec use of ball to support upright posture/ discourage trunk extension. 2 Descriptor Seated UE exercises. Elbow flex. 90 degrees flex -> end range. 2 x 10. Sh add w/ focus on bringing elbow to side of body vs winging/or typical jessica pattern posturing/motor movement. 2 x 10. Seated row. Use of half bolster to discourage winging/ or typical jessica pattern posturing/motor movement (IR). 2 x 10. N/A 08/08/23 Wrist flex. 3 x 10. Elbow 90 degrees flex; forearm in neutral. Blocking provided by therapist. Focus on wrist flex -> then relaxation. Wrist ext. Muscle tapping to facilitate. 3 x 10. Seated row w/ sh abd. 3 x 10. Reaching across L -> R hip. 3 x 10. Positioning of L UE at L knee -> R hip. 3 x 10. Forearm supination. 3 x 10. PNF diagonal. L knee --> R shoulder; facilitated by clinician near end range. 2 x 10. - Assessment Assessment of Improvement Kari reported that he has been feeling unwell for the past 3 weeks w/ a stomach ache ; illness has also been negatively impacting his ability to sleep at night. He reports that his is also unwell. He has yet to see his PCP re: the illness. Rec cont inclusion of slanted/diagonal surfaces and tone management/ passive range of motion exercises. Rec consideration of e-stim combined w/ neuro motor retraining/UE motor planning. Rec revisiting use of half bolster/roll for UE motor breakdown and to discourage pattern of winging, sh abd w/ IR and forearm pronation; phys assist to facilitate. Continued outpatient OT is recommended to address L UE function, including but not limited to active range of motion, tone management, motor planning, awareness of L UE in space, education re: AE/ modification/compensatory strategies to support functional abilities. Home Exercise Program 10/10/23 = Trunk flex w/ UE support for balance (bent over rows). 3 x 10. Isometric hold for 3-5 sec to increase diff. Try to fully extend elbow and keep elbow in w/ row. 10/04/23 = Use of surface in frontal plane (e.g., stool). Trunk flex w/ hands positioned on stool; facilitation of elbow ext and wrist/digit ext. WB. Hold for 20-30+ sec. 09/16/23 = Rhomboid stretch; use of R UE to facilitate. Rec to complete this stretch on TT to support elbow ext. Hold for 45-60 sec. 09/09/23 = Passive elbow ext w/ forearm supination w/ use of ipsilateral L knee for blocking; hold for 20-30 sec or more. Add wrist ext as geo/ as able to do so. Passive wrist ext w/ modified prayer w / fingers clasping if needed and bringing wrists to base of support; hold for 20-30 sec or more. These PROM exercises rec vs positioning of L UE to left of body combinining elbow ext, forearm supination, wrist/digit ext. 06/01/23 = Discussed combo sh ext, elbow ext, forearm sup, wrist ext seated w/ blocking of elbow to support elbow ext w/ ability to modify degree of stretch w/ trunk ext (moving from trunk flexion -> upright seated position). 04/26/23 = Discussed potential use of arm pulleys for home use; instructed in passive hor abd/ER stretch w/ use of TT w / trunk flex. Rec 2-3 times w/ hold of 20 - 30 sec+. 04/07/23 = Provided with square of dycem for home use to assist w/ L handed grasp or other functional activities ( as identified). Instructed in use of horizontal bar for weight bearing/tone management , motor re-training/grasp; Kari to identify alt option in the home to support carry- over. 03/17/23 = Rec completion of UE tone management exercises daily; passively stretching L UE out of typical jessica pattern daily (which would include daily execution of modified ER stretch supine, for 20 to 30+ sec, 2-3 repetitions based on response in today's session, w/ use of pillow support for L elbow w/ support of family member, and possible use of heat for 5-10 minutes as tolerated/w/ temperature skin being monitored given change in UE sensation). 03/09/23 = Motor planning sh add; rec use of TT 3 x 10 every other day or 3 x a week. - Plan Therapy Recommendations Advance per Rehabilitation Protocol Modalities As Needed,As Prescribed Additional Types of Modalities Heat/Ice/Contrast/Ultrasound/E -stim
--- NOTE | 2023-11-07 15:50 | OT.OP.TRT ---
Visit Care Team Role Provider Type Kristian Kim MD Attending Provider Physician Family Provider Primary Care Provider Referring Provider Specialty: Family Practice Address: [address] [place] [address], [facility] Email: [email or web address] Occupational Therapy Treatment Note OT Outpatient Treatment Note - Adult Start: 03/02/23 09:26 Freq: Status: Active Protocol: Document 11/07/23 15:42 AMS (Rec: 11/07/23 15:50 AMS [id number]) OT Outpatient Adult Treatment Note Session Time Visit Start Time 14:30 Visit Stop Time 15:15 Visit Information Visit Number 07/19; --> visit KX modifier Plan of Care Dates 10/04/23 - 12/13/23 Insurance Information Medicare Setting Treatment Setting Outpatient Care Visit Type Note Type Treatment Note General Information General Information Kari is a 67 year-old R hand dominant male referred to outpatient OT by PCP d/t L UE weakness secondary to stroke that occurred in June of 2022 . Medical history: Blood pressure, CHF, h/o falls, h/o R rotator cuff tear. Kari reported that he resides w/ his and son (Santana) who are available to assist him; they reside in a 4-story home (w/ bedroom and bath on 3rd floor of home). The [place] also has a [place] on [facility] [place] He is retired. He has modified a brief case to assist w/ transporting of items which is equipped w/ cross body strap; use of countertops to transport items via sliding. (+) 1-handed buttoning noted w/ R hand. Sleeps on R side since having stroke. completes meal prep in home. He presents ambulating w/ SPC (he progressed from manual w/c --> hemiwalker --> SPC). He has received home health PT and is currently being seen in the outpatient clinic at [facility] by PT. AFO has been rec by PT; he presented without AFO. He was reportedly previously seen by speech and discharged d/t no concerns re: cognition, speech, and/or swallow. He was seen by [facility] OT. He is not using L UE sling and/or distal UE splint. He does have a home e-stim unit; he is actively stretching the L hand/digits into extension to maintain available range of motion. - Subjective Observations Report of sleeping 4 hours at night. (+) awareness and ability to execute 1-handed opening of jar w/ screw top lid. Cont reported difficulties w/ moving affected UE out of typical jessica pattern; difficulties with grasp and release, elbow extension, shoulder external rotation, shoulder abduction and wrist extension. Reports inability to actively RD or UD . Denies any L shoulder pain/ discomfort associated w/ L sh subluxation. Patient/Caregiver Compliance with Home Good Exercise Program - Objective Objective Measurements Please refer to below for progress towards meeting established OT goals: 07/26/23 = 40.0# of force L bow machine operator w/ elbow 90 degrees flex vs initial 20.0# of force. 20 degrees active L sh ext vs initial 20 degrees. 03/01/23 = (+) mild L g/h/sh subluxation. (+) active L sh elevation; (+) L scapular retraction noted w/ L sh elevation. Goniometer measurements were completed in sitting; 25 degrees active L sh flexion; 20 degrees active L sh extension; 35 degrees active L sh abd; 95 degrees active L elbow flexion; full active L forearm pronation; (- ) active forearm supination; ( -) active L elbow ext; 25 degrees active L wrist flex; ( -) active L wrist ext; full active L sh IR; (-) active L sh ER. 20.0# of force L bow machine operator w / dynamometer II testing w/ elbow in 90 degrees flexion. Short Term Goals 1. Kari will present with improved active range of motion of the left upper extremity, this will be evidenced by the followina. 0-40 degrees active L shoulder flexion. 07/26/23 = GOAL UPGRADED 1b. 0-60 degrees active L shoulder abduction. 07/26/23 = GOAL UPGRADED 1c. 0-10 degrees active L elbow extension. 2. Kari will present with improved functional abilities: 1a. This will be evidenced by Kari's ability to verbalize and/or demonstrate use of 2 to 3 different AE/modification /compensatory strategies in the home. 05/18/23 = Uses notebook for writing; uses AE cutting board equipped w/ 2 prongs, 'jarrett' , and suction cups positioned on bottom of board GOALS MET 0-35 degrees active L shoulder flexion. *MET 07/25/24 vs initial 0-25 degrees L sh flex 0-55 degrees active L shoulder abduction. *MET 07/26/23 vs initial 0-35 degrees L sh abd 0-45 degrees active L shoulder abduction. *MET 05/18/23 vs initial 0-35 degrees L sh abd Checkroom Attendant Goals 1Franco Pierce will be modified independent with execution of home exercise program utilizing provided written and visual instructions from therapist as needed. 10/04/23 = 50% met - Exercises 12 Descriptor ROM using TT. Scapular protraction/rhomboid stretch. Use of TT. Hold for 45-60 sec. Sh flex w/ elbow ext w/ use of edge of TT. Hold for 45-60 sec. 11 Descriptor Seated UE strengthening. Sh ext. TB #2. 3 x 10. Scapular retraction. Modified. TB #2. 3 x 10. Upright row. TB #2. 3 x 10. 10 Descriptor Red flex-bar. Supination. 3 x 10. Pronation. 4 x 10. Modified twist. 3 x 10. 9 Descriptor L UE motor planning. L sh hor abd. Use of bedside table. Towels. 8 Descriptor Seated cane exercises. L batting stance/approach. N/A 08/05/23 B sh flexion. 2 x 10. Use of bolster/inclined surface. Trunk rotation. 2 x 10. L ER; min phys assist to maintain bow machine operator. 2 x 10. Sh hor abd/add. 2 x 10. L sh abd. 2 x 10. 7 Descriptor PROM Passive hook fist x 1, x 30 sec hold. Passive ER. Passive sh hor abd & ER w/ use of yoga ball. Passive UE diagonal R hip -> to L of body. 1 x 10. Passive forearm supination w/ elbow ext w/ use of knee and working towards wrist ext (vs PROM exercise below). Passive wrist/digit extension w/ modified prayer w/ clasped fingers w/ bringing wrists towards base of support. N/A 09/09/23 Passive distal UE stretch at EOM. Combo of sh ext, elbow ext, forearm supination, wrist ext, digit flex/ext x 30 sec. 6 Descriptor Arm Pulleys. Seated. x 7 minutes. *Rec use of ball to support upright posture/ discourage trunk extension. 5 Descriptor Tone management/UE neuro retraining. Use of horizontal bar. Dycem assist for L hand grasp. Max phys assist to grasping horizontal bar and release horizontal bar. L <-> R weight shift. 2 x 10. Min phys assist to facilitate elbow ext. Elbow ext, leaning slightly backwards and pulling self forwards. 2 x 10. Sh flex, combined w/ elbow ext , forearm pronation and wrist in slight extension. Pulsing grasp (50% of force of bow machine operator). 2 x 10. Completed sitting. Positioning of both hands on horizontal bar, hands shoulder width apart. Pulling up into standing <-> maintaining grasp w/ sitting/standing B UEs. 1 x 7. Positioning of both hands on horizontal bar, hands shoulder width apart, pulling up into standing B hands, returning to sitting w/ L UE/L hand positioned on bar only. 1 x 5. Modified dip w/ use of bar L UE. x 10 minutes. Use of e- stim. 4 Descriptor Arm bike x 5 min. Intermittent phys assist for repositioning of R hand/R handed grasp. Increased reliance on R UE. Forwards direction. 3 Descriptor Tone management/functional weight bearing. N/A 04/07/23 EOM. Trunk flexion. 1 x 10. Use of dycem. EOM. Upright sitting. L <-> R weight shift. 1 x 10. 2 Descriptor Seated UE exercises. Elbow flex. 90 degrees flex -> end range. 2 x 10. Sh add w/ focus on bringing elbow to side of body vs winging/or typical jessica pattern posturing/motor movement. 2 x 10. Seated row. Use of half bolster to discourage winging/ or typical jessica pattern posturing/motor movement (IR). 2 x 10. N/A 08/08/23 Wrist flex. 3 x 10. Elbow 90 degrees flex; forearm in neutral. Blocking provided by therapist. Focus on wrist flex -> then relaxation. Wrist ext. Muscle tapping to facilitate. 3 x 10. Seated row w/ sh abd. 3 x 10. Reaching across L -> R hip. 3 x 10. Positioning of L UE at L knee -> R hip. 3 x 10. Forearm supination. 3 x 10. PNF diagonal. L knee --> R shoulder; facilitated by clinician near end range. 2 x 10. - Assessment Assessment of Improvement Kari reported that he is feeling better then the previous week; he reported increased sleep duration w/ increased active engagement in /execution of UE exercises vs focus on manual/passive ROM by clinician. Use of bedside high low table w/ towel for sh abd/hor sh abd; use of half bolster for facilitation of sh flexion to discourage IR. (+) use of cane L handed approach given that L hand was able to positioned superiorly to R hand to assist w/ maintenance of grasp; encouragement to bring cane from shoulder -> thru body. Rec trialing w/ ball vs sole reliance on balloon for increase in repetitions/increase difficulty of exercise. May want to trial R handed as well /both sides. Particularly enjoys pickleball w/ PT. Rec cont inclusion of slanted/ diagonal surfaces and tone management/passive range of motion exercises. Rec consideration of e-stim combined w/ neuro motor retraining/UE motor planning. Rec revisiting use of half bolster/roll for UE motor breakdown and to discourage pattern of winging, sh abd w/ IR and forearm pronation; phys assist to facilitate. Continued outpatient OT is recommended to address L UE function, including but not limited to active range of motion, tone management, motor planning, awareness of L UE in space, education re: AE/ modification/compensatory strategies to support functional abilities. Home Exercise Program 10/10/23 = Trunk flex w/ UE support for balance (bent over rows). 3 x 10. Isometric hold for 3-5 sec to increase diff. Try to fully extend elbow and keep elbow in w/ row. 10/04/23 = Use of surface in frontal plane (e.g., stool). Trunk flex w/ hands positioned on stool; facilitation of elbow ext and wrist/digit ext. WB. Hold for 20-30+ sec. 09/16/23 = Rhomboid stretch; use of R UE to facilitate. Rec to complete this stretch on TT to support elbow ext. Hold for 45-60 sec. 09/09/23 = Passive elbow ext w/ forearm supination w/ use of ipsilateral L knee for blocking; hold for 20-30 sec or more. Add wrist ext as geo/ as able to do so. Passive wrist ext w/ modified prayer w / fingers clasping if needed and bringing wrists to base of support; hold for 20-30 sec or more. These PROM exercises rec vs positioning of L UE to left of body combinining elbow ext, forearm supination, wrist/digit ext. 06/01/23 = Discussed combo sh ext, elbow ext, forearm sup, wrist ext seated w/ blocking of elbow to support elbow ext w/ ability to modify degree of stretch w/ trunk ext (moving from trunk flexion -> upright seated position). 04/26/23 = Discussed potential use of arm pulleys for home use; instructed in passive hor abd/ER stretch w/ use of TT w / trunk flex. Rec 2-3 times w/ hold of 20 - 30 sec+. 04/07/23 = Provided with square of dycem for home use to assist w/ L handed grasp or other functional activities ( as identified). Instructed in use of horizontal bar for weight bearing/tone management , motor re-training/grasp; Kari to identify alt option in the home to support carry- over. 03/17/23 = Rec completion of UE tone management exercises daily; passively stretching L UE out of typical jessica pattern daily (which would include daily execution of modified ER stretch supine, for 20 to 30+ sec, 2-3 repetitions based on response in today's session, w/ use of pillow support for L elbow w/ support of family member, and possible use of heat for 5-10 minutes as tolerated/w/ temperature skin being monitored given change in UE sensation). 03/09/23 = Motor planning sh add; rec use of TT 3 x 10 every other day or 3 x a week. - Plan Therapy Recommendations Advance per Rehabilitation Protocol Modalities As Needed,As Prescribed Additional Types of Modalities Heat/Ice/Contrast/Ultrasound/E -stim
--- NOTE | 2023-11-22 14:44 | OT.OP.TRT ---
Visit Care Team Role Provider Type Kristian Kim MD Attending Provider Physician Family Provider Primary Care Provider Referring Provider Specialty: Family Practice Address: [address] [place] [address], [facility] Email: [email or web address] Occupational Therapy Treatment Note OT Outpatient Treatment Note - Adult Start: 03/02/23 09:26 Freq: Status: Active Protocol: Document 11/22/23 14:37 AMS (Rec: 11/22/23 14:44 AMS [id number]) OT Outpatient Adult Treatment Note Session Time Visit Start Time 13:00 Visit Stop Time 13:45 Visit Information Visit Number 08/18; --> visit KX modifier Plan of Care Dates 10/04/23 - 12/13/23 Insurance Information Medicare Setting Treatment Setting Outpatient Care Visit Type Note Type Treatment Note General Information General Information Kari is a 67 year-old R hand dominant male referred to outpatient OT by PCP d/t L UE weakness secondary to stroke that occurred in June of 2022 . Medical history: Blood pressure, CHF, h/o falls, h/o R rotator cuff tear. Kari reported that he resides w/ his and son (Santana) who are available to assist him; they reside in a 4-story home (w/ bedroom and bath on 3rd floor of home). [place] also [place] [address] [place] He is retired. He has modified a brief case to assist w/ transporting of items which is equipped w/ cross body strap; use of countertops to transport items via sliding. (+) 1-handed buttoning noted w/ R hand. Sleeps on R side since having stroke. completes meal prep in home. He presents ambulating w/ SPC (he progressed from manual w/c --> hemiwalker --> SPC). He has received home health PT and is currently being seen in the outpatient clinic at [facility] by PT. AFO has been rec by PT; he presented without AFO. He was reportedly previously seen by speech and discharged d/t no concerns re: cognition, speech, and/or swallow. He was seen by [facility] OT. He is not using L UE sling and/or distal UE splint. He does have a home e-stim unit; he is actively stretching the L hand/digits into extension to maintain available range of motion. - Subjective Observations Report of sleeping 4 hours at night. (+) awareness and ability to execute 1-handed opening of jar w/ screw top lid. Cont reported difficulties w/ moving affected UE out of typical jessica pattern; difficulties with grasp and release, elbow extension, shoulder external rotation, shoulder abduction and wrist extension. Reports inability to actively RD or UD . Denies any L shoulder pain/ discomfort associated w/ L sh subluxation. Patient/Caregiver Compliance with Home Good Exercise Program - Objective Objective Measurements Please refer to below for progress towards meeting established OT goals: 07/26/23 = 40.0# of force L optician apprentice dispensing w/ elbow 90 degrees flex vs initial 20.0# of force. 20 degrees active L sh ext vs initial 20 degrees. 03/01/23 = (+) mild L g/h/sh subluxation. (+) active L sh elevation; (+) L scapular retraction noted w/ L sh elevation. Goniometer measurements were completed in sitting; 25 degrees active L sh flexion; 20 degrees active L sh extension; 35 degrees active L sh abd; 95 degrees active L elbow flexion; full active L forearm pronation; (- ) active forearm supination; ( -) active L elbow ext; 25 degrees active L wrist flex; ( -) active L wrist ext; full active L sh IR; (-) active L sh ER. 20.0# of force L optician apprentice dispensing w / dynamometer II testing w/ elbow in 90 degrees flexion. Short Term Goals 1. Kari will present with improved active range of motion of the left upper extremity, this will be evidenced by the followina. 0-40 degrees active L shoulder flexion. 07/26/23 = GOAL UPGRADED 1b. 0-60 degrees active L shoulder abduction. 07/26/23 = GOAL UPGRADED 1c. 0-10 degrees active L elbow extension. 2. Kari will present with improved functional abilities: 1a. This will be evidenced by Kari's ability to verbalize and/or demonstrate use of 2 to 3 different AE/modification /compensatory strategies in the home. 05/18/23 = Uses notebook for writing; uses AE cutting board equipped w/ 2 prongs, 'jarrett' , and suction cups positioned on bottom of board GOALS MET 0-35 degrees active L shoulder flexion. *MET 07/25/24 vs initial 0-25 degrees L sh flex 0-55 degrees active L shoulder abduction. *MET 07/26/23 vs initial 0-35 degrees L sh abd 0-45 degrees active L shoulder abduction. *MET 05/18/23 vs initial 0-35 degrees L sh abd [place] Goals 1Franco Pierce will be modified independent with execution of home exercise program utilizing provided written and visual instructions from therapist as needed. 10/04/23 = 50% met - Exercises 12 Descriptor ROM using TT. Scapular protraction/rhomboid stretch. Use of TT. Hold for 45-60 sec. Sh flex w/ elbow ext w/ use of edge of TT. Hold for 45-60 sec. 9 Descriptor L UE motor planning. L sh hor abd. Use of bedside table. Towels. 8 Descriptor Seated B UE Cane Exercises/ Activities. L handed approach to batting. Bilateral UE. Seated. L handed approach to modified Fit with Friendsg. Hitting of rolled ball. Bilateral UE. Seated. N/A 08/05/23 B sh flexion. 2 x 10. Use of bolster/inclined surface. Trunk rotation. 2 x 10. L ER; min phys assist to maintain optician apprentice dispensing. 2 x 10. Sh hor abd/add. 2 x 10. L sh abd. 2 x 10. 7 Descriptor PROM Passive hook fist x 1, x 30 sec hold. Passive ER. Passive sh hor abd & ER w/ use of yoga ball. Passive UE diagonal R hip -> to L of body. 1 x 10. Passive forearm supination w/ elbow ext w/ use of knee and working towards wrist ext (vs PROM exercise below). Passive wrist/digit extension w/ modified prayer w/ clasped fingers w/ bringing wrists towards base of support. N/A 09/09/23 Passive distal UE stretch at EOM. Combo of sh ext, elbow ext, forearm supination, wrist ext, digit flex/ext x 30 sec. 3 Descriptor Tone management/functional weight bearing. N/A 04/07/23 EOM. Trunk flexion. 1 x 10. Use of dycem. EOM. Upright sitting. L <-> R weight shift. 1 x 10. 2 Descriptor Seated UE exercises. Elbow flex. 90 degrees flex -> end range. 2 x 10. Sh add w/ focus on bringing elbow to side of body vs winging/or typical jessica pattern posturing/motor movement. 2 x 10. Seated row. Use of half bolster to discourage winging/ or typical jessica pattern posturing/motor movement (IR). 2 x 10. N/A 08/08/23 Wrist flex. 3 x 10. Elbow 90 degrees flex; forearm in neutral. Blocking provided by therapist. Focus on wrist flex -> then relaxation. Wrist ext. Muscle tapping to facilitate. 3 x 10. Seated row w/ sh abd. 3 x 10. Reaching across L -> R hip. 3 x 10. Positioning of L UE at L knee -> R hip. 3 x 10. Forearm supination. 3 x 10. PNF diagonal. L knee --> R shoulder; facilitated by clinician near end range. 2 x 10. - Assessment Assessment of Improvement Reported fall 11/21/23 w/ self- directed fall recovery; reportedly fell onto left side while assisting w/ moving his w/ moving sofa within the home. Denies loss of consciousness. Denied going to the ER. Enjoys pickleball; intends on playing darts in the near future; may trial croquet as well. Reported that balance is slightly off since having fall. (+) use of SPC w / ambulation. Repeated L handed approach to batting; modified seated golfing w/ rolled ball w/ focus on L elbow extension and active inclusion. May want to trial R handed approach/both sides. Ceased cane exercises secondary to reported tenderness/discomfort/L hand hurting. Rec cont inclusion of slanted/ diagonal surfaces and tone management/passive range of motion exercises. Rec consideration of e-stim combined w/ neuro motor retraining/UE motor planning. Rec revisiting use of half bolster/roll for UE motor breakdown and to discourage pattern of winging, sh abd w/ IR and forearm pronation; phys assist to facilitate. Continued outpatient OT is recommended to address L UE function, including but not limited to active range of motion, tone management, motor planning, awareness of L UE in space, education re: AE/ modification/compensatory strategies to support functional abilities. Home Exercise Program 10/10/23 = Trunk flex w/ UE support for balance (bent over rows). 3 x 10. Isometric hold for 3-5 sec to increase diff. Try to fully extend elbow and keep elbow in w/ row. 10/04/23 = Use of surface in frontal plane (e.g., stool). Trunk flex w/ hands positioned on stool; facilitation of elbow ext and wrist/digit ext. WB. Hold for 20-30+ sec. 09/16/23 = Rhomboid stretch; use of R UE to facilitate. Rec to complete this stretch on TT to support elbow ext. Hold for 45-60 sec. 09/09/23 = Passive elbow ext w/ forearm supination w/ use of ipsilateral L knee for blocking; hold for 20-30 sec or more. Add wrist ext as geo/ as able to do so. Passive wrist ext w/ modified prayer w / fingers clasping if needed and bringing wrists to base of support; hold for 20-30 sec or more. These PROM exercises rec vs positioning of L UE to left of body combinining elbow ext, forearm supination, wrist/digit ext. 06/01/23 = Discussed combo sh ext, elbow ext, forearm sup, wrist ext seated w/ blocking of elbow to support elbow ext w/ ability to modify degree of stretch w/ trunk ext (moving from trunk flexion -> upright seated position). 04/26/23 = Discussed potential use of arm pulleys for home use; instructed in passive hor abd/ER stretch w/ use of TT w / trunk flex. Rec 2-3 times w/ hold of 20 - 30 sec+. 04/07/23 = Provided with square of dycem for home use to assist w/ L handed grasp or other functional activities ( as identified). Instructed in use of horizontal bar for weight bearing/tone management , motor re-training/grasp; Kari to identify alt option in the home to support carry- over. 03/17/23 = Rec completion of UE tone management exercises daily; passively stretching L UE out of typical jessica pattern daily (which would include daily execution of modified ER stretch supine, for 20 to 30+ sec, 2-3 repetitions based on response in today's session, w/ use of pillow support for L elbow w/ support of family member, and possible use of heat for 5-10 minutes as tolerated/w/ temperature skin being monitored given change in UE sensation). 03/09/23 = Motor planning sh add; rec use of TT 3 x 10 every other day or 3 x a week. - Plan Therapy Recommendations Advance per Rehabilitation Protocol Modalities As Needed,As Prescribed Additional Types of Modalities Heat/Ice/Contrast/Ultrasound/E -stim
--- NOTE | 2023-11-29 15:20 | OT.OP.TRT ---
Visit Care Team Role Provider Type Kristian Kim MD Attending Provider Physician Family Provider Primary Care Provider Referring Provider Specialty: Family Practice Address: [address] [place] [address], [facility] Email: [email or web address] Occupational Therapy Treatment Note OT Outpatient Treatment Note - Adult Start: 03/02/23 09:26 Freq: Status: Active Protocol: Document 11/29/23 15:15 AMS (Rec: 11/30/23 15:34 AMS [id number]) OT Outpatient Adult Treatment Note Session Time Visit Start Time 14:30 Visit Stop Time 15:15 Visit Information Visit Number 09/18; --> visit KX modifier Plan of Care Dates 10/04/23 - 12/13/23 Insurance Information Medicare Setting Treatment Setting Outpatient Care Visit Type Note Type Treatment Note General Information General Information Kari is a 67 year-old R hand dominant male referred to outpatient OT by PCP d/t L UE weakness secondary to stroke that occurred in June of 2022 . Medical history: Blood pressure, CHF, h/o falls, h/o R rotator cuff tear. Kari reported that he resides w/ his and son (Santana) who are available to assist him; they reside in a 4-story home (w/ bedroom and bath on 3rd floor of home). [place] also [place] [facility] [place] He is retired. He has modified a brief case to assist w/ transporting of items which is equipped w/ cross body strap; use of countertops to transport items via sliding. (+) 1-handed buttoning noted w/ R hand. Sleeps on R side since having stroke. completes meal prep in home. He presents ambulating w/ SPC (he progressed from manual w/c --> hemiwalker --> SPC). He has received home health PT and is currently being seen in the outpatient clinic at by PT. AFO has been rec by PT; he presented without AFO. He was reportedly previously seen by speech and discharged d/t no concerns re: cognition, speech, and/or swallow. He was seen by [facility] OT. He is not using L UE sling and/or distal UE splint. He does have a home e-stim unit; he is actively stretching the L hand/digits into extension to maintain available range of motion. - Subjective Observations Cont reported difficulties w/ moving affected UE out of typical jessica pattern; difficulties with grasp and release, elbow extension, shoulder external rotation, shoulder abduction and wrist extension. Reports inability to actively RD or UD. Denies any L shoulder pain/discomfort associated w/ L sh subluxation. Reports reliance on others with picking up, getting clothes/set-up, and transporting items within the home. Reports not using cane in the home w/ ambulation. Patient/Caregiver Compliance with Home Good Exercise Program - Objective Objective Measurements Please refer to below for progress towards meeting established OT goals: 07/26/23 = 40.0# of force L medical billing instructor w/ elbow 90 degrees flex vs initial 20.0# of force. 20 degrees active L sh ext vs initial 20 degrees. 03/01/23 = (+) mild L g/h/sh subluxation. (+) active L sh elevation; (+) L scapular retraction noted w/ L sh elevation. Goniometer measurements were completed in sitting; 25 degrees active L sh flexion; 20 degrees active L sh extension; 35 degrees active L sh abd; 95 degrees active L elbow flexion; full active L forearm pronation; (- ) active forearm supination; ( -) active L elbow ext; 25 degrees active L wrist flex; ( -) active L wrist ext; full active L sh IR; (-) active L sh ER. 20.0# of force L medical billing instructor w / dynamometer II testing w/ elbow in 90 degrees flexion. Short Term Goals 1. Kari will present with improved active range of motion of the left upper extremity, this will be evidenced by the followina. 0-40 degrees active L shoulder flexion. 07/26/23 = GOAL UPGRADED 1b. 0-60 degrees active L shoulder abduction. 07/26/23 = GOAL UPGRADED 1c. 0-10 degrees active L elbow extension. 2. Kari will present with improved functional abilities: 1a. This will be evidenced by Kari's ability to verbalize and/or demonstrate use of 2 to 3 different AE/modification /compensatory strategies in the home. 05/18/23 = Uses notebook for writing; uses AE cutting board equipped w/ 2 prongs, 'jarrett' , and suction cups positioned on bottom of board GOALS MET 0-35 degrees active L shoulder flexion. *MET 07/25/24 vs initial 0-25 degrees L sh flex 0-55 degrees active L shoulder abduction. *MET 07/26/23 vs initial 0-35 degrees L sh abd 0-45 degrees active L shoulder abduction. *MET 05/18/23 vs initial 0-35 degrees L sh abd Usp Goals 1Franco Pierce will be modified independent with execution of home exercise program utilizing provided written and visual instructions from therapist as needed. 10/04/23 = 50% met - Exercises 12 Descriptor ROM using TT. Scapular protraction/rhomboid stretch. Use of TT. Hold for 45-60 sec. Sh flex w/ elbow ext w/ use of edge of TT. Hold for 45-60 sec. 11 Descriptor Seated UE strengthening. Sh ext. TB #2. 3 x 10. Scapular retraction. Modified. TB #2. 3 x 10. Upright row. TB #2. 3 x 10. 10 Descriptor Red flex-bar. Supination. 3 x 10. Pronation. 4 x 10. Modified twist. 3 x 10. 9 Descriptor L UE motor planning. L sh hor abd. Use of bedside table. Towels. 8 Descriptor Seated B UE Cane Exercises/ Activities. L handed approach to batting. Bilateral UE. Seated. L handed approach to modified golClarientg. Hitting of rolled ball. Bilateral UE. Seated. N/A 08/05/23 B sh flexion. 2 x 10. Use of bolster/inclined surface. Trunk rotation. 2 x 10. L ER; min phys assist to maintain medical billing instructor. 2 x 10. Sh hor abd/add. 2 x 10. L sh abd. 2 x 10. 7 Descriptor PROM Passive hook fist x 1, x 30 sec hold. Passive ER. Passive sh hor abd & ER w/ use of yoga ball. Passive UE diagonal R hip -> to L of body. 1 x 10. Passive forearm supination w/ elbow ext w/ use of knee and working towards wrist ext (vs PROM exercise below). Passive wrist/digit extension w/ modified prayer w/ clasped fingers w/ bringing wrists towards base of support. N/A 09/09/23 Passive distal UE stretch at EOM. Combo of sh ext, elbow ext, forearm supination, wrist ext, digit flex/ext x 30 sec. 6 Descriptor Arm Pulleys. Seated. x 7 minutes. *Rec use of ball to support upright posture/ discourage trunk extension. 5 Descriptor Tone management/UE neuro retraining. Use of horizontal bar. Dycem assist for L hand grasp. Max phys assist to grasping horizontal bar and release horizontal bar. L <-> R weight shift. 2 x 10. Min phys assist to facilitate elbow ext. Elbow ext, leaning slightly backwards and pulling self forwards. 2 x 10. Sh flex, combined w/ elbow ext , forearm pronation and wrist in slight extension. Pulsing grasp (50% of force of medical billing instructor). 2 x 10. Completed sitting. Positioning of both hands on horizontal bar, hands shoulder width apart. Pulling up into standing <-> maintaining grasp w/ sitting/standing B UEs. 1 x 7. Positioning of both hands on horizontal bar, hands shoulder width apart, pulling up into standing B hands, returning to sitting w/ L UE/L hand positioned on bar only. 1 x 5. Modified dip w/ use of bar L UE. x 10 minutes. Use of e- stim. 4 Descriptor Arm bike x 5 min. Intermittent phys assist for repositioning of R hand/R handed grasp. Increased reliance on R UE. Forwards direction. 3 Descriptor Tone management/functional weight bearing. N/A 04/07/23 EOM. Trunk flexion. 1 x 10. Use of dycem. EOM. Upright sitting. L <-> R weight shift. 1 x 10. 2 Descriptor Seated UE exercises. Elbow flex. 90 degrees flex -> end range. 2 x 10. Sh add w/ focus on bringing elbow to side of body vs winging/or typical jessica pattern posturing/motor movement. 2 x 10. Seated row. Use of half bolster to discourage winging/ or typical jessica pattern posturing/motor movement (IR). 2 x 10. N/A 08/08/23 Wrist flex. 3 x 10. Elbow 90 degrees flex; forearm in neutral. Blocking provided by therapist. Focus on wrist flex -> then relaxation. Wrist ext. Muscle tapping to facilitate. 3 x 10. Seated row w/ sh abd. 3 x 10. Reaching across L -> R hip. 3 x 10. Positioning of L UE at L knee -> R hip. 3 x 10. Forearm supination. 3 x 10. PNF diagonal. L knee --> R shoulder; facilitated by clinician near end range. 2 x 10. 1 Descriptor Supine UE exercises. Sh flex. 1 x 10. Self ROM. ER. 1 x 10. Self ROM. Bringing of elbows together at midline . Positioning of hand on L side of head/elbow at midline. Stretch. Hold for 30 sec. Chest press. 1 x 10. Self-ROM. Focus on elbow extension. Elbow extension. Self ROM. Modified 'skull repairer screen crusher'. N/A 11/29/23 Sh ext. 3 x 10. Min phys assist to facilitate. 1 x 10 focus on controlled descent. CGA to min phys assist. Sh ext w/ handle. 2 x 10. TB #1. CGA to min phys assist. Elbow flex. 3 x 10. Clinician assisting 90 - 110+ degrees to obtain full elbow ext; assist to obtain initial elbow ext. Sh medium-sized circles. 1 x 10 in both directions. CGA to min phys assist to support motor control at level. PNF diagonal. 2 x 10. L hip -> R shoulder. Max phys assist. Sh add/hor abd. Limited range of motion w/ abd. 2 x 10. Wrist extension. Muscle tapping to facilitate. Elbow in 90 degrees flexion. 2 x 10. - Assessment Assessment of Improvement (+) use of SPC w/ ambulation. Denied any recent falls (since most recent one w/ relocating furniture within the home). ( +) participation in dar[employer]beus w/ reported ability to stand for x 10 minutes --> then needing to rest (sit down) before returning to playing darts. Reviewed supine UE home exercises; discussed alt, including chest press (moving into and out of elbow ext and motor planning of functional reach w/ discouraging IR/going across body), elbow flex -> ext w/ hands positioning above head based on sh flex able to achieve, an alt ER stretch as well -> bringing elbows together at midline vs positioning of hand on head/ elbow at midline). Rec cont inclusion of slanted/ diagonal surfaces and tone management/passive range of motion exercises. Rec consideration of e-stim combined w/ neuro motor retraining/UE motor planning. Rec revisiting use of half bolster/roll for UE motor breakdown and to discourage pattern of winging, sh abd w/ IR and forearm pronation; phys assist to facilitate. Continued outpatient OT is recommended to address L UE function, including but not limited to active range of motion, tone management, motor planning, awareness of L UE in space, education re: AE/ modification/compensatory strategies to support functional abilities. Home Exercise Program 10/10/23 = Trunk flex w/ UE support for balance (bent over rows). 3 x 10. Isometric hold for 3-5 sec to increase diff. Try to fully extend elbow and keep elbow in w/ row. 10/04/23 = Use of surface in frontal plane (e.g., stool). Trunk flex w/ hands positioned on stool; facilitation of elbow ext and wrist/digit ext. WB. Hold for 20-30+ sec. 09/16/23 = Rhomboid stretch; use of R UE to facilitate. Rec to complete this stretch on TT to support elbow ext. Hold for 45-60 sec. 09/09/23 = Passive elbow ext w/ forearm supination w/ use of ipsilateral L knee for blocking; hold for 20-30 sec or more. Add wrist ext as geo/ as able to do so. Passive wrist ext w/ modified prayer w / fingers clasping if needed and bringing wrists to base of support; hold for 20-30 sec or more. These PROM exercises rec vs positioning of L UE to left of body combinining elbow ext, forearm supination, wrist/digit ext. 06/01/23 = Discussed combo sh ext, elbow ext, forearm sup, wrist ext seated w/ blocking of elbow to support elbow ext w/ ability to modify degree of stretch w/ trunk ext (moving from trunk flexion -> upright seated position). 04/26/23 = Discussed potential use of arm pulleys for home use; instructed in passive hor abd/ER stretch w/ use of TT w / trunk flex. Rec 2-3 times w/ hold of 20 - 30 sec+. 04/07/23 = Provided with square of dycem for home use to assist w/ L handed grasp or other functional activities ( as identified). Instructed in use of horizontal bar for weight bearing/tone management , motor re-training/grasp; Kari to identify alt option in the home to support carry- over. 03/17/23 = Rec completion of UE tone management exercises daily; passively stretching L UE out of typical jessica pattern daily (which would include daily execution of modified ER stretch supine, for 20 to 30+ sec, 2-3 repetitions based on response in today's session, w/ use of pillow support for L elbow w/ support of family member, and possible use of heat for 5-10 minutes as tolerated/w/ temperature skin being monitored given change in UE sensation). 03/09/23 = Motor planning sh add; rec use of TT 3 x 10 every other day or 3 x a week. - Plan Therapy Recommendations Advance per Rehabilitation Protocol Modalities As Needed,As Prescribed Additional Types of Modalities Heat/Ice/Contrast/Ultrasound/E -stim
--- NOTE | 2023-12-30 08:58 | OT.OP.DC ---
Visit Care Team Role Provider Type Kristian Kim MD Attending Provider Physician Family Provider Primary Care Provider Referring Provider Address: [address] [place] [address], [id number] Email: [email or web address] Outpatient OT Outpatient Adult Evaluation Start: 03/02/23 09:26 Freq: Status: Active Protocol: Document 03/01/23 16:00 AMS (Rec: 03/02/23 10:04 AMS [id number]) General Information - Adult Visit Information Visit Number 04/20; 04/29 --> visit KX Modifier Plan of Care Dates 03/01/23 - 05/24/23 Insurance Information Medicare Session Time Visit Start Time 08:45 Visit Stop Time 09:40 Total Visit Minutes 55 Goals Treatment Treatment Tone management/wegiht bearing /weight shifting. Short Term Goals Short Term Goals 1. Kari will present with improved active range of motion of the left upper extremity, this will be evidenced by the followina. 35 degrees active L shoulder flexion. 1b. 45 degrees active L shoulder abduction. 1c. 10 degrees active L elbow extension. 2. Kari will present with improved functional abilities; this will be evidenced by ability to verbalize and/or demonstrate use of 2 to 3 different AE/ modification/compensatory strategies in the home. [facility] Goals Division Operations Manager Goals 1. Kari will be modified independent with execution of home exercise program utilizing provided written and visual instructions from therapist as needed. Assessment/Plan Assessment Treatment Assessment Kari is a 67 year-old R hand dominant male referred to outpatient OT by PCP d/t L UE weakness secondary to stroke that occurred in June of 2022 . Medical history: Blood pressure, CHF, h/o falls, h/o R rotator cuff tear. Kari reported that he resides w/ his and son (Santana) who are available to assist him; they reside in a 4-story home (w/ bedroom and bath on 3rd floor of home) and he is retired. He has modified a brief case to assist w/ transporting of items which is equipped w/ cross body strap; use of countertops to transport items via sliding. ( +) 1-handed buttoning noted w/ R hand. Sleeps on R side since having stroke. completes meal prep in home. He presents ambulating w/ SPC (he progressed from manual w/c --> hemiwalker --> SPC). He has received home health PT and is currently being seen in the outpatient clinic at [facility] by PT. AFO has been rec by PT; he presented without AFO. He was reportedly previously seen by speech and discharged d/t no concerns re : cognition, speech, and/or swallow. He was seen by [facility] OT. He is not using L UE sling and/or distal UE splint. He does have a home e-stim unit; he is actively stretching the L hand/digits into extension to maintain available range of motion. Patient Goals: Address L UE function. Pain Assessment Grid completed ; no pain/discomfort indicated . Denial of any changes in sensation of L UE. QuickDASH UE Outcome Measure Score = 20. 45; QuickDASH Sports/ Performing Arts Module Score = 100.00 (hobbies included pickleball, scuba diving, playing the [email or web address], riding motorcycles). (+) mild L g/h/sh subluxation. (+) active L sh elevation; (+) L scapular retraction noted w/ L sh elevation. Goniometer measurements were completed in sitting; 25 degrees active L sh flexion; 20 degrees active L sh extension; 35 degrees active L sh abd; 95 degrees active L elbow flexion; full active L forearm pronation; (- ) active forearm supination; ( -) active L elbow ext; 25 degrees active L wrist flex; ( -) active L wrist ext; full active L sh IR; (-) active L sh ER. 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 ( +) flexor tone pattern/typical UE jessica pattern observed w/ active movement. Good weight shifting L <-> R seated at EOM ; able to maintain both feet on floor w/ trunk ext. Outpatient OT is recommended to address L UE function, including but not limited to active range of motion, tone management, motor planning, awareness of L UE in space, education re: AE/modification/ compensatory strategies to support functional abilities. Plan Length of treatment (weeks) 12 Plan of Care Start Date 03/01/23 Plan of Care End Date 02/13/24 Treatment Frequency Once a Week Therapeutic Contents Active Range of Motion, Adaptive Equipment Education, Functional Activities,Home Exercise Program,Joint Protection,Manual Therapy, Education,Neurodevelopment Treatment,Neuromuscular Re- Education,Self-Care,Stretching /Flexibility Activities, Therapeutic Activities, Therapeutic Exercises, Modalities Modalities As Needed,As Prescribed Additional Types of Modalities Heat/Ice/Contrast Baths/ Ultrasound/E-stim Functional Wrist/Hand Scan Hand Side Sensory Assessment Sensory Profile2 OT Outpatient Treatment Note - Adult Start: 03/02/23 09:26 Freq: Status: Active Protocol: Document 12/30/23 08:55 AMS (Rec: 12/30/23 08:58 AMS [id number]) OT Outpatient Adult Treatment Note Visit Information Visit Number 09/18; --> visit KX modifier Plan of Care Dates 10/04/23 - 12/13/23 Insurance Information Medicare Setting Treatment Setting Outpatient Care Visit Type Note Type Discharge Summary General Information General Information Kari is a 67 year-old R hand dominant male referred to outpatient OT by PCP d/t L UE weakness secondary to stroke that occurred in June of 2022 . Medical history: Blood pressure, CHF, h/o falls, h/o R rotator cuff tear. Kari reported that he resides w/ his and son (Santana) who are available to assist him; they reside in a 4-story home (w/ bedroom and bath on 3rd floor of home). [place] also [place] [address] [place] He is retired. He has modified a brief case to assist w/ transporting of items which is equipped w/ cross body strap; use of countertops to transport items via sliding. (+) 1-handed buttoning noted w/ R hand. Sleeps on R side since having stroke. completes meal prep in home. He presents ambulating w/ SPC (he progressed from manual w/c --> hemiwalker --> SPC). He has received home health PT and is currently being seen in the outpatient clinic at [facility] by PT. AFO has been rec by PT; he presented without AFO. He was reportedly previously seen by speech and discharged d/t no concerns re: cognition, speech, and/or swallow. He was seen by [facility] OT. He is not using L UE sling and/or distal UE splint. He does have a home e-stim unit; he is actively stretching the L hand/digits into extension to maintain available range of motion. - Subjective Observations Kari's OT POC on 12/12; he has not been seen by outpatient OT since 11/29/23 and has no additional appointments scheduled. Thus, recommend d/c from outpatient OT and therapist to re- evaluate as deemed appropriate by PCP with receipt of new referral. - Objective Objective Measurements Please refer to below for progress towards meeting established OT goals: 07/26/23 = 40.0# of force L gravel roofer w/ elbow 90 degrees flex vs initial 20.0# of force. 20 degrees active L sh ext vs initial 20 degrees. 03/01/23 = (+) mild L g/h/sh subluxation. (+) active L sh elevation; (+) L scapular retraction noted w/ L sh elevation. Goniometer measurements were completed in sitting; 25 degrees active L sh flexion; 20 degrees active L sh extension; 35 degrees active L sh abd; 95 degrees active L elbow flexion; full active L forearm pronation; (- ) active forearm supination; ( -) active L elbow ext; 25 degrees active L wrist flex; ( -) active L wrist ext; full active L sh IR; (-) active L sh ER. 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 Short Term Goals GOALS MET 0-35 degrees active L shoulder flexion. *MET 07/25/24 vs initial 0-25 degrees L sh flex 0-55 degrees active L shoulder abduction. *MET 07/26/23 vs initial 0-35 degrees L sh abd 0-45 degrees active L shoulder abduction. *MET 05/18/23 vs initial 0-35 degrees L sh abd GOALS D/C 12/30/23 1. Kari will present with improved active range of motion of the left upper extremity, this will be evidenced by the followina. 0-40 degrees active L shoulder flexion. 07/26/23 = GOAL UPGRADED 1b. 0-60 degrees active L shoulder abduction. 07/26/23 = GOAL UPGRADED 1c. 0-10 degrees active L elbow extension. 2. Kari will present with improved functional abilities: 1a. This will be evidenced by Kari's ability to verbalize and/or demonstrate use of 2 to 3 different AE/modification /compensatory strategies in the home. 05/18/23 = Uses notebook for writing; uses AE cutting board equipped w/ 2 prongs, 'jarrett' , and suction cups positioned on bottom of board Division Operations Manager Goals GOALS D/C 12/30/23 1. Kari will be modified independent with execution of home exercise program utilizing provided written and visual instructions from therapist as needed. 10/04/23 = 50% met - - Assessment Assessment of Improvement Kari's OT POC on 12/12; he has not been seen by outpatient OT since 11/29/23 and has no additional appointments scheduled. Thus, recommend d/c from outpatient OT and therapist to re- evaluate as deemed appropriate by PCP with receipt of new referral. - Plan Therapy Recommendations Discharge from Occupational Therapy
== END 2024-01-03 13:43 | disposition home or self-care (01) ==
LOC: OT 14:30
PROVIDERS: Family Provider Family Medicine; PCP Family Medicine; Referring Provider Family Medicine; Visit Provider Family Medicine
DX: M79.602 Pain in left arm (principal); G81.94 Hemiplegia, unspecified affecting left nondominant side; R27.8 Other lack of coordination
CPT/HCPCS: 97032; 97110; 97165; 97530

== ENCOUNTER → 2023-12-08 14:42 | Outpatient (CLI) | payer MEDICARE, SELFPAY ==
--- NOTE | 2023-12-08 14:47 | DI.US.S_ITS ---
PROCEDURE: US ABDOMINAL AORTA COMPLETE INDICATIONS: FORMER SMOKER TECHNIQUE: Real-time scanning was performed of the abdominal aorta, with image documentation. COMPARISON: None. FINDINGS: The abdominal aorta measures, Proximal: 2.6 centimeter Mid: 1.9 centimeter Distal: 1.7 centimeter . The right common iliac artery measure 1.3 centimeter. The left common iliac artery measures 1.3 centimeter as well. IMPRESSION: No abdominal aortic aneurysm. Dictated by: Chika Agustin M.D. on 12/09/2023 at 9:51 Approved by: Chika Agustin M.D. on 12/09/2023 at 9:53
== END ==
PROVIDERS: Family Provider Family Medicine; PCP Family Medicine; Referring Provider Internal Medicine Cardiovascular Disease; Visit Provider Internal Medicine Cardiovascular Disease
DX: Z87.891 Personal history of nicotine dependence (principal)
CPT/HCPCS: 76770

== ENCOUNTER 2024-03-07 14:30 | Outpatient (RCR) | payer MEDICARE, SELFPAY ==
--- NOTE | 2023-01-19 13:42 | PT.OIE ---
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) Visit Care Team Role Provider Type Kristian Kim MD Attending Provider Physician Family Provider Primary Care Provider Referring Provider Specialty: Family Practice Address: [address] [place] [address], [facility] Email: [email or web address] Physical Therapy Initial Evaluation PT-OP-A Visit Information Start: 01/19/23 09:03 Freq: Status: Active Protocol: Document 01/19/23 13:29 ED (Rec: 01/19/23 13:41 ED [id number]) Out-Patient Physical Therapy Visit Information Visit Information Visit Type Initial Evaluation Visit Note 04/20 Visit Start Time 09:00 Visit Stop Time 09:45 Total Visit Minutes 45 Visit Number 1 Evaluation Information Evaluation Date 01/19/23 PT-OP-B Current Condition Start: 01/19/23 09:03 Freq: Status: Active Protocol: Document 01/19/23 13:29 ED (Rec: 01/19/23 13:41 ED [id number]) Current Condition History of Current Condition Onset Date June Current Complaints L sided hemiplegia History of Current Condition 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 He received home health and recently graduated from that. He states he wants to focus on his L UE as it has not made the same amount of progress as his L LE. He ambulates with a SPC and lives with his . he has to use the stairs constantly at home. He reports a few falls at home since the stroke. He says the only exercise he does at home currently is stairs. PT-OP-C Subjective Start: 01/19/23 09:03 Freq: Status: Active Protocol: Document 01/19/23 13:29 ED (Rec: 01/19/23 13:41 ED [id number]) OP-PT Subjective Patient Comments Patient Comments Improve strength and balance PT-OP-E Functional Tests Start: 01/19/23 09:03 Freq: Status: Active Protocol: Document 01/19/23 13:29 ED (Rec: 01/19/23 13:41 ED [id number]) Functional Tests Five Times Sit to Stand Test Score 49 seconds Timed Up and Go (TUG) Score 12 seconds Comments 13' speed test (4m speed test) Other SPPB Name of Test SPPB Score 4/12 PT-OP-M Strength Start: 01/19/23 09:03 Freq: Status: Active Protocol: Document 01/19/23 13:29 ED (Rec: 01/19/23 13:41 ED [id number]) Knee Strength Knee Manual Muscle Testing Left Flexion (S2) 4- Good- Extension (L3) 4- Good- Comments unable to dissociate hip and knee movements; goes into knee extension AND hip extension PT-OP-T Assessment and Plan Start: 01/19/23 09:03 Freq: Status: Active Protocol: Document 01/19/23 13:29 ED (Rec: 01/19/23 13:41 ED [id number]) Physical Therapy Assessment Rehab Potential Rehabilitation Potential Good Evaluation Complexity Number of Personal Factors/Comorbidities 1-2 Number of Body Systems Impaired 3 Clinical Presentation at Evaluation Evolving Impairments Impairments Activity Tolerance,Balance, Functional Activities, Functional Mobility,Gait, Strength,Tone,Transfers Goals stairs Impairment stair negotiation Usp Goal (LTG) Pt will be able to ascend stairs with step through gait pattern and use single railing . LTG Duration 6 weeks muscle isolation Impairment muscle isolation Impairment unable to extend knee separately from hip extension Usp Goal (LTG) Pt will be able to perform seated knee extensions using 5 # weight without compensatory hip extension. LTG Duration 6 weeks SPPB Impairment SPPB Impairment IE: 4/12 Usp Goal (LTG) Pt will improve SPPB score to >7/12. LTG Duration 6-8 weeks HEP Impairment HEP Short Term Goal (STG) Pt will report performing HEP >3 days/week. STG Duration 3 weeks Building Custodian Goal (LTG) Pt will report performing HEP >3 days/week. LTG Duration 6-8 weeks Assessment Summary Assessment Pt reported to PT to improve his overall functional mobility after having a R sided CVA in June. Pt currently ambulating with a SPC. Pt demonstrated inability decreased balance, L LE strength, and L LE coordination. Pt performed the Short Physical Performance Battery today and recorded a score of 4/12; a score <10/12 indicates mobility disability. Pt's home health rehab was catered towards improving his functional mobility basics such as being able to stand and walk; I believe outpatient PT can ehlp improve his coordination of L LE and be more detailed in exercise selection. Pt stated he would like therapy for his L UE as that has not improved as much as he would like; OT would be a better option to improve his L UE function at this time. PT provided patient with staggered sit<>stands for his HEP this week. Physical Therapy Plan Frequency and Duration Frequency of Treatment 2x/Week Duration of treatment (weeks) 10 Plan of Care Start Date 01/19/23 Plan of Care End Date 04/19/23 Therapeutic Interventions Therapeutic Interventions Gait Training,Home Exercise Program,Manual Therapy, Neuromuscular Re-education, Orthotic/Prosthetic Management ,Patient/Caregiver Education, Self-Care/Home Management,Soft Tissue Mobilization,Taping, Therapeutic Activities, Therapeutic Exercises Next Visit Focus/Plan Next Note Type Treatment Note Next Visit Plan 6 minute walk test, staggered sit<>stand, knee extension, leg press
--- NOTE | 2023-01-19 13:42 | PT.OPPOC ---
Physical, Occupational & Speech Therapy At [facility] Current Diagnoses Cerebral infarction, unspecified (01/19/23) Visit Care Team Role Provider Type Kristian Kim MD Attending Provider Physician Family Provider Primary Care Provider Referring Provider Specialty: Family Practice Address: [address] [place] [address], [facility] Email: [email or web address] Plan Of Care PT-OP-T Assessment and Plan Start: 01/19/23 09:03 Freq: Status: Active Protocol: Document 01/19/23 13:29 ED (Rec: 01/19/23 13:41 ED [id number]) Physical Therapy Assessment Rehab Potential Rehabilitation Potential Good Evaluation Complexity Number of Personal Factors/Comorbidities 1-2 Number of Body Systems Impaired 3 Clinical Presentation at Evaluation Evolving Impairments Impairments Activity Tolerance,Balance, Functional Activities, Functional Mobility,Gait, Strength,Tone,Transfers Goals stairs Impairment stair negotiation Prison Goal (LTG) Pt will be able to ascend stairs with step through gait pattern and use single railing . LTG Duration 6 weeks muscle isolation Impairment muscle isolation Impairment unable to extend knee separately from hip extension Reheater Helper Goal (LTG) Pt will be able to perform seated knee extensions using 5 # weight without compensatory hip extension. LTG Duration 6 weeks SPPB Impairment SPPB Impairment IE: 4/12 Reheater Helper Goal (LTG) Pt will improve SPPB score to >7/12. LTG Duration 6-8 weeks HEP Impairment HEP Short Term Goal (STG) Pt will report performing HEP >3 days/week. STG Duration 3 weeks Reheater Helper Goal (LTG) Pt will report performing HEP >3 days/week. LTG Duration 6-8 weeks Assessment Summary Assessment Pt reported to PT to improve his overall functional mobility after having a R sided CVA in June. Pt currently ambulating with a SPC. Pt demonstrated inability decreased balance, L LE strength, and L LE coordination. Pt performed the Short Physical Performance Battery today and recorded a score of 4/12; a score <10/12 indicates mobility disability. Pt's home health rehab was catered towards improving his functional mobility basics such as being able to stand and walk; I believe outpatient PT can ehlp improve his coordination of L LE and be more detailed in exercise selection. Pt stated he would like therapy for his L UE as that has not improved as much as he would like; OT would be a better option to improve his L UE function at this time. PT provided patient with staggered sit<>stands for his HEP this week. Physical Therapy Plan Frequency and Duration Frequency of Treatment 2x/Week Duration of treatment (weeks) 10 Plan of Care Start Date 01/19/23 Plan of Care End Date 04/19/23 Therapeutic Interventions Therapeutic Interventions Gait Training,Home Exercise Program,Manual Therapy, Neuromuscular Re-education, Orthotic/Prosthetic Management ,Patient/Caregiver Education, Self-Care/Home Management,Soft Tissue Mobilization,Taping, Therapeutic Activities, Therapeutic Exercises Next Visit Focus/Plan Next Note Type Treatment Note Next Visit Plan 6 minute walk test, staggered sit<>stand, knee extension, leg press Plan of Care Dates Plan of Care Start Date 01/19/23 Plan of Care End Date 04/19/23 Electronically Signed by: Tyrese Carter, PT 01/19/23 9208 If you are in agreement with this Plan of Care, please return a signed and dated copy. I have reviewed this Plan of Care and certify that the skilled therapy services above are required to meet the patient?s needs. Physician Signature Date Printed Name and Credentials Clinical Instructor Signature Printed Name and Credentials
--- NOTE | 2023-01-26 12:52 | PT.OTN ---
Current Diagnoses Cerebral infarction, unspecified (01/26/23) Physical Therapy Treatment Note PT-OP-A Visit Information Start: 01/19/23 09:03 Freq: Status: Active Protocol: Document 01/26/23 12:47 ED (Rec: 01/26/23 12:52 ED [id number]) Out-Patient Physical Therapy Visit Information Visit Information Visit Type Treatment Note Visit Note 05/21 Visit Start Time 11:30 Visit Stop Time 12:15 Total Visit Minutes 45 Visit Number 2 PT-OP-B Current Condition Start: 01/19/23 09:03 Freq: Status: Active Protocol: Document 01/19/23 13:29 ED (Rec: 01/19/23 13:41 ED [id number]) Current Condition History of Current Condition Onset Date June Current Complaints L sided hemiplegia History of Current Condition 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 He received home health and recently graduated from that. He states he wants to focus on his L UE as it has not made the same amount of progress as his L LE. He ambulates with a SPC and lives with his . he has to use the stairs constantly at home. He reports a few falls at home since the stroke. He says the only exercise he does at home currently is stairs. PT-OP-C Subjective Start: 01/19/23 09:03 Freq: Status: Active Protocol: Document 01/26/23 12:47 ED (Rec: 01/26/23 12:52 ED [id number]) OP-PT Subjective Patient Comments Patient Comments Pt states he found that the exercises at home were harder than any he did during HH PT. PT-OP-E Functional Tests Start: 01/19/23 09:03 Freq: Status: Active Protocol: Document 01/19/23 13:29 ED (Rec: 01/19/23 13:41 ED [id number]) Functional Tests Five Times Sit to Stand Test Score 49 seconds Timed Up and Go (TUG) Score 12 seconds Comments 13' speed test (4m speed test) Other SPPB Name of Test SPPB Score 07/21 PT-OP-M Strength Start: 01/19/23 09:03 Freq: Status: Active Protocol: Document 01/19/23 13:29 ED (Rec: 01/19/23 13:41 ED [id number]) Knee Strength Knee Manual Muscle Testing Left Flexion (S2) 4- Good- Extension (L3) 4- Good- Comments unable to dissociate hip and knee movements; goes into knee extension AND hip extension PT-OP-Q Treatments Start: 01/19/23 09:03 Freq: Status: Active Protocol: Document 01/26/23 12:47 ED (Rec: 01/26/23 12:52 ED [id number]) Therapeutic Exercises Supine Exercises leg press Supine Exercise Name leg press Side right Resistance 25# Equipment Used leg press Reps/Minutes 2x10 Comments unilateral only Sitting Exercises knee extension Sitting Exercise Name knee extension Side right Resistance 2# Reps/Minutes 3x10 Comments unable to go through full knee ROM Therapeutic Activity Therapeutic Activity squat Name sit <> stand Reps/Minutes 3x10 Comments staggered; L LE closer Gait Training Gait Activity walking Description 6MWT Device Used SPC Level of Assistance SBA Surface flat Distance/Duration 6 minutes Comments ambulated 360 feet PT-OP-T Assessment and Plan Start: 01/19/23 09:03 Freq: Status: Active Protocol: Document 01/26/23 12:47 ED (Rec: 01/26/23 12:52 ED [id number]) Physical Therapy Assessment Goals 6MWT Impairment 6MWT Impairment IE: 360 feet with SPC Short Term Goal (STG) Pt will improve 6MWT by 160 feet (MCID) to a score > 520 feet. STG Duration 3 weeks Fci Goal (LTG) Pt will improve 6MWT by 320 feet (MCID) to a score > 680 feet. LTG Duration 6-8 weeks stairs Impairment stair negotiation Mohs Surgeon/General Dermatologist Goal (LTG) Pt will be able to ascend stairs with step through gait pattern and use single railing . LTG Duration 6 weeks muscle isolation Impairment muscle isolation Impairment unable to extend knee separately from hip extension Mohs Surgeon/General Dermatologist Goal (LTG) Pt will be able to perform seated knee extensions using 5 # weight without compensatory hip extension. LTG Duration 6 weeks SPPB Impairment SPPB Impairment IE: 4/12 Mohs Surgeon/General Dermatologist Goal (LTG) Pt will improve SPPB score to >7/12. LTG Duration 6-8 weeks HEP Impairment HEP Short Term Goal (STG) Pt will report performing HEP >3 days/week. STG Duration 3 weeks Mohs Surgeon/General Dermatologist Goal (LTG) Pt will report performing HEP >3 days/week. LTG Duration 6-8 weeks Assessment Summary Assessment Worked primarily on LE strengthening and isolation exercises to improve patient's dissociation between L hip and knee. Pt demonstrating compensation patterns secondary to CVA. Physical Therapy Plan Frequency and Duration Frequency of Treatment 2x/Week Duration of treatment (weeks) 10 Plan of Care Start Date 01/19/23 Plan of Care End Date 04/19/23 Therapeutic Interventions Therapeutic Interventions Gait Training,Home Exercise Program,Manual Therapy, Neuromuscular Re-education, Orthotic/Prosthetic Management ,Patient/Caregiver Education, Self-Care/Home Management,Soft Tissue Mobilization,Taping, Therapeutic Activities, Therapeutic Exercises Next Visit Focus/Plan Next Note Type Treatment Note Next Visit Plan 6 minute walk test, staggered sit<>stand, knee extension, leg press
--- NOTE | 2023-01-28 10:45 | PT.OTN ---
Current Diagnoses Cerebral infarction, unspecified (01/28/23) Physical Therapy Treatment Note PT-OP-A Visit Information Start: 01/19/23 09:03 Freq: Status: Active Protocol: Document 01/28/23 10:42 ED (Rec: 01/28/23 10:45 ED [id number]) Out-Patient Physical Therapy Visit Information Visit Information Visit Type Treatment Note Visit Note 06/18 Visit Start Time 10:00 Visit Stop Time 10:45 Total Visit Minutes 45 Visit Number 3 PT-OP-B Current Condition Start: 01/19/23 09:03 Freq: Status: Active Protocol: Document 01/19/23 13:29 ED (Rec: 01/19/23 13:41 ED [id number]) Current Condition History of Current Condition Onset Date June Current Complaints L sided hemiplegia History of Current Condition 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 He received home health and recently graduated from that. He states he wants to focus on his L UE as it has not made the same amount of progress as his L LE. He ambulates with a SPC and lives with his . he has to use the stairs constantly at home. He reports a few falls at home since the stroke. He says the only exercise he does at home currently is stairs. PT-OP-C Subjective Start: 01/19/23 09:03 Freq: Status: Active Protocol: Document 01/28/23 10:42 ED (Rec: 01/28/23 10:45 ED [id number]) OP-PT Subjective Patient Comments Patient Comments Pt states that his muscles were sore after last PT session; in his L quads and L calf. PT-OP-E Functional Tests Start: 01/19/23 09:03 Freq: Status: Active Protocol: Document 01/19/23 13:29 ED (Rec: 01/19/23 13:41 ED [id number]) Functional Tests Five Times Sit to Stand Test Score 49 seconds Timed Up and Go (TUG) Score 12 seconds Comments 13' speed test (4m speed test) Other SPPB Name of Test SPPB Score 12 PT-OP-M Strength Start: 01/19/23 09:03 Freq: Status: Active Protocol: Document 01/19/23 13:29 ED (Rec: 01/19/23 13:41 ED [id number]) Knee Strength Knee Manual Muscle Testing Left Flexion (S2) 4- Good- Extension (L3) 4- Good- Comments unable to dissociate hip and knee movements; goes into knee extension AND hip extension PT-OP-Q Treatments Start: 01/19/23 09:03 Freq: Status: Active Protocol: Document 01/28/23 10:42 ED (Rec: 01/28/23 10:45 ED [id number]) Cardio Equipment Recumbent Elliptical (Biodex) Duration (Minutes) 8 Resistance 5 Therapeutic Exercises Supine Exercises bridge Supine Exercise Name bridge w/ adductor squeeze Equipment Used small ball Reps/Minutes 3x10 SAQ Side left Resistance none Equipment Used foam roller Reps/Minutes 3x10 hip flexor Supine Exercise Name banded hip flexion Side left Resistance yellow band Reps/Minutes 3x8 hip flexion Supine Exercise Name PB hip flexion Reps/Minutes 3x10 leg press Supine Exercise Name leg press Side left Resistance 25# Equipment Used leg press Reps/Minutes 2x10 Comments unilateral only PT-OP-T Assessment and Plan Start: 01/19/23 09:03 Freq: Status: Active Protocol: Document 01/28/23 10:42 ED (Rec: 01/28/23 10:45 ED [id number]) Physical Therapy Assessment Goals 6MWT Impairment 6MWT Impairment IE: 360 feet with SPC Short Term Goal (STG) Pt will improve 6MWT by 160 feet (MCID) to a score > 520 feet. STG Duration 3 weeks Lead Pressman [employer] Goal (LTG) Pt will improve 6MWT by 320 feet (MCID) to a score > 680 feet. LTG Duration 6-8 weeks stairs Impairment stair negotiation Lead Pressman [employer] Goal (LTG) Pt will be able to ascend stairs with step through gait pattern and use single railing . LTG Duration 6 weeks muscle isolation Impairment muscle isolation Impairment unable to extend knee separately from hip extension Lead Pressman [employer] Goal (LTG) Pt will be able to perform seated knee extensions using 5 # weight without compensatory hip extension. LTG Duration 6 weeks SPPB Impairment SPPB Impairment IE: 4/12 Halfway Goal (LTG) Pt will improve SPPB score to >7/12. LTG Duration 6-8 weeks HEP Impairment HEP Short Term Goal (STG) Pt will report performing HEP >3 days/week. STG Duration 3 weeks Lead Pressman [employer] Goal (LTG) Pt will report performing HEP >3 days/week. LTG Duration 6-8 weeks Assessment Summary Assessment Worked primarily on LE strengthening and isolation exercises to improve patient's dissociation between L hip and knee. Pt demonstrating compensation patterns secondary to CVA. Physical Therapy Plan Frequency and Duration Frequency of Treatment 2x/Week Duration of treatment (weeks) 10 Plan of Care Start Date 01/19/23 Plan of Care End Date 04/19/23 Therapeutic Interventions Therapeutic Interventions Gait Training,Home Exercise Program,Manual Therapy, Neuromuscular Re-education, Orthotic/Prosthetic Management ,Patient/Caregiver Education, Self-Care/Home Management,Soft Tissue Mobilization,Taping, Therapeutic Activities, Therapeutic Exercises Next Visit Focus/Plan Next Note Type Treatment Note Next Visit Plan 6 minute walk test, staggered sit<>stand, knee extension, leg press
--- NOTE | 2023-02-03 12:17 | PT.OTN ---
Current Diagnoses Cerebral infarction, unspecified (02/03/23) Physical Therapy Treatment Note PT-OP-A Visit Information Start: 01/19/23 09:03 Freq: Status: Active Protocol: Document 02/03/23 12:15 ED (Rec: 02/03/23 12:17 ED [id number]) Out-Patient Physical Therapy Visit Information Visit Information Visit Type Treatment Note Visit Note 07/19 Visit Start Time 10:30 Visit Stop Time 12:15 Total Visit Minutes 45 Visit Number 4 PT-OP-B Current Condition Start: 01/19/23 09:03 Freq: Status: Active Protocol: Document 01/19/23 13:29 ED (Rec: 01/19/23 13:41 ED [id number]) Current Condition History of Current Condition Onset Date June Current Complaints L sided hemiplegia History of Current Condition 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 He received home health and recently graduated from that. He states he wants to focus on his L UE as it has not made the same amount of progress as his L LE. He ambulates with a SPC and lives with his . he has to use the stairs constantly at home. He reports a few falls at home since the stroke. He says the only exercise he does at home currently is stairs. PT-OP-C Subjective Start: 01/19/23 09:03 Freq: Status: Active Protocol: Document 02/03/23 12:15 ED (Rec: 02/03/23 12:17 ED [id number]) OP-PT Subjective Patient Comments Patient Comments Pt states that he is trying to realize the progress he has made and focus less on his ongoing disabilities. PT-OP-E Functional Tests Start: 01/19/23 09:03 Freq: Status: Active Protocol: Document 01/19/23 13:29 ED (Rec: 01/19/23 13:41 ED [id number]) Functional Tests Five Times Sit to Stand Test Score 49 seconds Timed Up and Go (TUG) Score 12 seconds Comments 13' speed test (4m speed test) Other SPPB Name of Test SPPB Score 07/21 PT-OP-M Strength Start: 01/19/23 09:03 Freq: Status: Active Protocol: Document 01/19/23 13:29 ED (Rec: 01/19/23 13:41 ED [id number]) Knee Strength Knee Manual Muscle Testing Left Flexion (S2) 4- Good- Extension (L3) 4- Good- Comments unable to dissociate hip and knee movements; goes into knee extension AND hip extension PT-OP-Q Treatments Start: 01/19/23 09:03 Freq: Status: Active Protocol: Document 02/03/23 12:15 ED (Rec: 02/03/23 12:17 ED [id number]) Cardio Equipment Recumbent Elliptical (Biodex) Duration (Minutes) 8 Resistance 5 Therapeutic Exercises Supine Exercises bridge Supine Exercise Name bridge w/ adductor squeeze Equipment Used small ball Reps/Minutes 3x10 Comments using L LE for knee extension and not knee flexion/hip extension SAQ Side left Resistance none Equipment Used large foam roller Reps/Minutes 3x10 hip flexor Supine Exercise Name banded hip flexion Side left Resistance pink band Reps/Minutes 3x8 Therapeutic Activity Therapeutic Activity squat Name sit <> stand Reps/Minutes 3x10 Comments staggered; L LE closer PT-OP-T Assessment and Plan Start: 01/19/23 09:03 Freq: Status: Active Protocol: Document 02/03/23 12:15 ED (Rec: 02/03/23 12:17 ED [id number]) Physical Therapy Assessment Goals 6MWT Impairment 6MWT Impairment IE: 360 feet with SPC Short Term Goal (STG) Pt will improve 6MWT by 160 feet (MCID) to a score > 520 feet. STG Duration 3 weeks Halfway Goal (LTG) Pt will improve 6MWT by 320 feet (MCID) to a score > 680 feet. LTG Duration 6-8 weeks stairs Impairment stair negotiation Ferry Terminal Supervisor Goal (LTG) Pt will be able to ascend stairs with step through gait pattern and use single railing . LTG Duration 6 weeks muscle isolation Impairment muscle isolation Impairment unable to extend knee separately from hip extension Ferry Terminal Supervisor Goal (LTG) Pt will be able to perform seated knee extensions using 5 # weight without compensatory hip extension. LTG Duration 6 weeks SPPB Impairment SPPB Impairment IE: 4/12 Ferry Terminal Supervisor Goal (LTG) Pt will improve SPPB score to >7/12. LTG Duration 6-8 weeks HEP Impairment HEP Short Term Goal (STG) Pt will report performing HEP >3 days/week. STG Duration 3 weeks Ferry Terminal Supervisor Goal (LTG) Pt will report performing HEP >3 days/week. LTG Duration 6-8 weeks Assessment Summary Assessment Worked primarily on LE strengthening and isolation exercises to improve patient's dissociation between L hip and knee. Pt having difficult time with isolated knee flexion; his isolated knee extension looked better today. Physical Therapy Plan Frequency and Duration Frequency of Treatment 2x/Week Duration of treatment (weeks) 10 Plan of Care Start Date 01/19/23 Plan of Care End Date 04/19/23 Therapeutic Interventions Therapeutic Interventions Gait Training,Home Exercise Program,Manual Therapy, Neuromuscular Re-education, Orthotic/Prosthetic Management ,Patient/Caregiver Education, Self-Care/Home Management,Soft Tissue Mobilization,Taping, Therapeutic Activities, Therapeutic Exercises Next Visit Focus/Plan Next Note Type Treatment Note Next Visit Plan 6 minute walk test, staggered sit<>stand, knee extension, leg press
--- NOTE | 2023-02-09 15:06 | PT.OTN ---
Current Diagnoses Cerebral infarction, unspecified (02/09/23) Physical Therapy Treatment Note PT-OP-A Visit Information Start: 01/19/23 09:03 Freq: Status: Active Protocol: Document 02/09/23 15:03 ED (Rec: 02/09/23 15:06 ED [id number]) Out-Patient Physical Therapy Visit Information Visit Information Visit Type Treatment Note Visit Note 08/18 Visit Start Time 14:15 Visit Stop Time 15:00 Total Visit Minutes 45 Visit Number 5 PT-OP-B Current Condition Start: 01/19/23 09:03 Freq: Status: Active Protocol: Document 01/19/23 13:29 ED (Rec: 01/19/23 13:41 ED [id number]) Current Condition History of Current Condition Onset Date June Current Complaints L sided hemiplegia History of Current Condition 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 He received home health and recently graduated from that. He states he wants to focus on his L UE as it has not made the same amount of progress as his L LE. He ambulates with a SPC and lives with his . he has to use the stairs constantly at home. He reports a few falls at home since the stroke. He says the only exercise he does at home currently is stairs. PT-OP-C Subjective Start: 01/19/23 09:03 Freq: Status: Active Protocol: Document 02/09/23 15:03 ED (Rec: 02/09/23 15:06 ED [id number]) OP-PT Subjective Patient Comments Patient Comments Pt states he has not been doing much of his HEP at home. States that he will try to do better. PT-OP-E Functional Tests Start: 01/19/23 09:03 Freq: Status: Active Protocol: Document 01/19/23 13:29 ED (Rec: 01/19/23 13:41 ED [id number]) Functional Tests Five Times Sit to Stand Test Score 49 seconds Timed Up and Go (TUG) Score 12 seconds Comments 13' speed test (4m speed test) Other SPPB Name of Test SPPB Score /12 PT-OP-M Strength Start: 01/19/23 09:03 Freq: Status: Active Protocol: Document 01/19/23 13:29 ED (Rec: 01/19/23 13:41 ED [id number]) Knee Strength Knee Manual Muscle Testing Left Flexion (S2) 4- Good- Extension (L3) 4- Good- Comments unable to dissociate hip and knee movements; goes into knee extension AND hip extension PT-OP-Q Treatments Start: 01/19/23 09:03 Freq: Status: Active Protocol: Document 02/09/23 15:03 ED (Rec: 02/09/23 15:06 ED [id number]) Cardio Equipment Recumbent Bicycle Duration (Minutes) 6 Resistance 10 Therapeutic Exercises Supine Exercises leg press Supine Exercise Name leg press Side left Resistance 25# Equipment Used leg press Reps/Minutes 2x30 Comments unilateral only Sitting Exercises ankle PF/DF Sitting Exercise Name ankle PF/DF Equipment Used AAROM Reps/Minutes 1x10 knee extension Sitting Exercise Name knee extension Side right Resistance 2# Reps/Minutes 3x10 Comments unable to go through full knee ROM Gait Training Gait Activity walking Description reciprocal stepping practice Device Used FWW; SPC Level of Assistance CGA Surface flat Distance/Duration 2x100' Comments working on symmetrical step lengths PT-OP-T Assessment and Plan Start: 01/19/23 09:03 Freq: Status: Active Protocol: Document 02/09/23 15:03 ED (Rec: 02/09/23 15:06 ED [id number]) Physical Therapy Assessment Goals 6MWT Impairment 6MWT Impairment IE: 360 feet with SPC Short Term Goal (STG) Pt will improve 6MWT by 160 feet (MCID) to a score > 520 feet. STG Duration 3 weeks Fruit Inspector Goal (LTG) Pt will improve 6MWT by 320 feet (MCID) to a score > 680 feet. LTG Duration 6-8 weeks stairs Impairment stair negotiation Intermediate Goal (LTG) Pt will be able to ascend stairs with step through gait pattern and use single railing . LTG Duration 6 weeks muscle isolation Impairment muscle isolation Impairment unable to extend knee separately from hip extension Fruit Inspector Goal (LTG) Pt will be able to perform seated knee extensions using 5 # weight without compensatory hip extension. LTG Duration 6 weeks SPPB Impairment SPPB Impairment IE: 4/12 Intermediate Goal (LTG) Pt will improve SPPB score to >7/12. LTG Duration 6-8 weeks HEP Impairment HEP Short Term Goal (STG) Pt will report performing HEP >3 days/week. STG Duration 3 weeks Fruit Inspector Goal (LTG) Pt will report performing HEP >3 days/week. LTG Duration 6-8 weeks Assessment Summary Assessment Continuing to work on L LE strength and improving ability to isolate muscle groups. Pt demonstrating extensor compensations as he links hip extension, knee extension, and PF together. Unable to isolate much movement of ankle . Is improving in knee extension isolation but still demonstrates hip extension. Physical Therapy Plan Frequency and Duration Frequency of Treatment 2x/Week Duration of treatment (weeks) 10 Plan of Care Start Date 01/19/23 Plan of Care End Date 04/19/23 Therapeutic Interventions Therapeutic Interventions Gait Training,Home Exercise Program,Manual Therapy, Neuromuscular Re-education, Orthotic/Prosthetic Management ,Patient/Caregiver Education, Self-Care/Home Management,Soft Tissue Mobilization,Taping, Therapeutic Activities, Therapeutic Exercises Next Visit Focus/Plan Next Note Type Treatment Note Next Visit Plan 6 minute walk test, staggered sit<>stand, knee extension, leg press
--- NOTE | 2023-02-11 15:10 | PT.OTN ---
Current Diagnoses Cerebral infarction, unspecified (02/11/23) Physical Therapy Treatment Note PT-OP-A Visit Information Start: 01/19/23 09:03 Freq: Status: Active Protocol: Document 02/11/23 15:07 ED (Rec: 02/11/23 15:10 ED [id number]) Out-Patient Physical Therapy Visit Information Visit Information Visit Type Treatment Note Visit Note 09/18 Visit Start Time 14:15 Visit Stop Time 15:00 Total Visit Minutes 45 Visit Number 6 PT-OP-B Current Condition Start: 01/19/23 09:03 Freq: Status: Active Protocol: Document 01/19/23 13:29 ED (Rec: 01/19/23 13:41 ED [id number]) Current Condition History of Current Condition Onset Date June Current Complaints L sided hemiplegia History of Current Condition 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 He received home health and recently graduated from that. He states he wants to focus on his L UE as it has not made the same amount of progress as his L LE. He ambulates with a SPC and lives with his . he has to use the stairs constantly at home. He reports a few falls at home since the stroke. He says the only exercise he does at home currently is stairs. PT-OP-C Subjective Start: 01/19/23 09:03 Freq: Status: Active Protocol: Document 02/11/23 15:07 ED (Rec: 02/11/23 15:10 ED [id number]) OP-PT Subjective Patient Comments Patient Comments Pt notes that he had a difficult time trying to do the step through walking at home. Doesn't know if he is getting better. PT-OP-E Functional Tests Start: 01/19/23 09:03 Freq: Status: Active Protocol: Document 01/19/23 13:29 ED (Rec: 01/19/23 13:41 ED [id number]) Functional Tests Five Times Sit to Stand Test Score 49 seconds Timed Up and Go (TUG) Score 12 seconds Comments 13' speed test (4m speed test) Other SPPB Name of Test SPPB Score 4/12 PT-OP-M Strength Start: 01/19/23 09:03 Freq: Status: Active Protocol: Document 01/19/23 13:29 ED (Rec: 01/19/23 13:41 ED [id number]) Knee Strength Knee Manual Muscle Testing Left Flexion (S2) 4- Good- Extension (L3) 4- Good- Comments unable to dissociate hip and knee movements; goes into knee extension AND hip extension PT-OP-Q Treatments Start: 01/19/23 09:03 Freq: Status: Active Protocol: Document 02/11/23 15:07 ED (Rec: 02/11/23 15:10 ED [id number]) Cardio Equipment Recumbent Bicycle Duration (Minutes) 6 Resistance 10 Therapeutic Exercises Supine Exercises ankle DF Supine Exercise Name ankle DF Equipment Used bolster Reps/Minutes 3x20 bridge Supine Exercise Name bridge w/ adductor squeeze Equipment Used small ball Reps/Minutes 3x10 Comments using L LE for knee extension and not knee flexion/hip extension SAQ Side left Resistance 1# Equipment Used large foam roller Reps/Minutes 3x10 Gait Training Gait Activity walking Description reciprocal stepping practice Device Used SPC Level of Assistance CGA Surface flat Distance/Duration x6' in // bars; x300' SPC Comments working on symmetrical step lengths PT-OP-T Assessment and Plan Start: 01/19/23 09:03 Freq: Status: Active Protocol: Document 02/11/23 15:07 ED (Rec: 02/11/23 15:10 ED [id number]) Physical Therapy Assessment Goals 6MWT Impairment 6MWT Impairment IE: 360 feet with SPC Short Term Goal (STG) Pt will improve 6MWT by 160 feet (MCID) to a score > 520 feet. STG Duration 3 weeks Longterm Goal (LTG) Pt will improve 6MWT by 320 feet (MCID) to a score > 680 feet. LTG Duration 6-8 weeks stairs Impairment stair negotiation Divorce Lawyer Goal (LTG) Pt will be able to ascend stairs with step through gait pattern and use single railing . LTG Duration 6 weeks muscle isolation Impairment muscle isolation Impairment unable to extend knee separately from hip extension Longterm Goal (LTG) Pt will be able to perform seated knee extensions using 5 # weight without compensatory hip extension. LTG Duration 6 weeks SPPB Impairment SPPB Impairment IE: 4/12 Divorce Lawyer Goal (LTG) Pt will improve SPPB score to >7/12. LTG Duration 6-8 weeks HEP Impairment HEP Short Term Goal (STG) Pt will report performing HEP >3 days/week. STG Duration 3 weeks Longterm Goal (LTG) Pt will report performing HEP >3 days/week. LTG Duration 6-8 weeks Assessment Summary Assessment Worked primarily on LE strengthening and isolation exercises to improve patient's dissociation between L hip, ankle, and knee. Pt demonstrated some ability to isolate DF but it was accompanied with L hip flexion . his knee extension is improved. Pt requires cuing throughout for appropriate respiration during repititions . Physical Therapy Plan Frequency and Duration Frequency of Treatment 2x/Week Duration of treatment (weeks) 10 Plan of Care Start Date 01/19/23 Plan of Care End Date 04/19/23 Therapeutic Interventions Therapeutic Interventions Gait Training,Home Exercise Program,Manual Therapy, Neuromuscular Re-education, Orthotic/Prosthetic Management ,Patient/Caregiver Education, Self-Care/Home Management,Soft Tissue Mobilization,Taping, Therapeutic Activities, Therapeutic Exercises Next Visit Focus/Plan Next Note Type Treatment Note Next Visit Plan 6 minute walk test, staggered sit<>stand, knee extension, leg press
--- NOTE | 2023-02-16 15:05 | PT.OTN ---
Current Diagnoses Cerebral infarction, unspecified (02/16/23) Physical Therapy Treatment Note PT-OP-A Visit Information Start: 01/19/23 09:03 Freq: Status: Active Protocol: Document 02/16/23 15:00 ED (Rec: 02/16/23 15:05 ED [id number]) Out-Patient Physical Therapy Visit Information Visit Information Visit Type Treatment Note Visit Note 10/18 Visit Start Time 14:15 Visit Stop Time 15:00 Total Visit Minutes 45 Visit Number 7 PT-OP-B Current Condition Start: 01/19/23 09:03 Freq: Status: Active Protocol: Document 01/19/23 13:29 ED (Rec: 01/19/23 13:41 ED [id number]) Current Condition History of Current Condition Onset Date June Current Complaints L sided hemiplegia History of Current Condition 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 He received home health and recently graduated from that. He states he wants to focus on his L UE as it has not made the same amount of progress as his L LE. He ambulates with a SPC and lives with his . he has to use the stairs constantly at home. He reports a few falls at home since the stroke. He says the only exercise he does at home currently is stairs. PT-OP-C Subjective Start: 01/19/23 09:03 Freq: Status: Active Protocol: Document 02/16/23 15:00 ED (Rec: 02/16/23 15:05 ED [id number]) OP-PT Subjective Patient Comments Patient Comments Pt states he has OT starting next week. Is feeling like he could do his exercise at home more frequently; mentions he hasn't been performing the staggered sit<>stands often. PT-OP-E Functional Tests Start: 01/19/23 09:03 Freq: Status: Active Protocol: Document 01/19/23 13:29 ED (Rec: 01/19/23 13:41 ED [id number]) Functional Tests Five Times Sit to Stand Test Score 49 seconds Timed Up and Go (TUG) Score 12 seconds Comments 13' speed test (4m speed test) Other SPPB Name of Test SPPB Score 4/12 PT-OP-M Strength Start: 01/19/23 09:03 Freq: Status: Active Protocol: Document 01/19/23 13:29 ED (Rec: 01/19/23 13:41 ED [id number]) Knee Strength Knee Manual Muscle Testing Left Flexion (S2) 4- Good- Extension (L3) 4- Good- Comments unable to dissociate hip and knee movements; goes into knee extension AND hip extension PT-OP-Q Treatments Start: 01/19/23 09:03 Freq: Status: Active Protocol: Document 02/16/23 15:00 ED (Rec: 02/16/23 15:05 ED [id number]) Cardio Equipment Recumbent Bicycle Duration (Minutes) 6 Resistance 10 Therapeutic Exercises Supine Exercises ankle DF Supine Exercise Name ankle DF Equipment Used bolster Reps/Minutes 3x20 bridge Supine Exercise Name bridge w/ adductor squeeze Equipment Used small ball Reps/Minutes 3x10 Comments using L LE for knee extension and not knee flexion/hip extension SAQ Side left Resistance 4# Equipment Used large foam roller Reps/Minutes 3x10 hip flexion Supine Exercise Name reverse crunch Equipment Used blue ball Reps/Minutes 3x15 leg press Supine Exercise Name leg press Side left Resistance 50# Equipment Used leg press Reps/Minutes 2x30 Comments unilateral only Therapeutic Activity Therapeutic Activity squat Name sit <> stand Reps/Minutes 3x10 Comments staggered; L LE closer Gait Training Gait Activity walking Description reciprocal stepping practice Device Used SPC Level of Assistance CGA Surface flat Distance/Duration x6' in // bars; x300' SPC Comments working on symmetrical step lengths PT-OP-T Assessment and Plan Start: 01/19/23 09:03 Freq: Status: Active Protocol: Document 02/16/23 15:00 ED (Rec: 02/16/23 15:05 ED [id number]) Physical Therapy Assessment Goals 6MWT Impairment 6MWT Impairment IE: 360 feet with SPC Short Term Goal (STG) Pt will improve 6MWT by 160 feet (MCID) to a score > 520 feet. STG Duration 3 weeks Mcc Goal (LTG) Pt will improve 6MWT by 320 feet (MCID) to a score > 680 feet. LTG Duration 6-8 weeks stairs Impairment stair negotiation Medical Coding Specialist Goal (LTG) Pt will be able to ascend stairs with step through gait pattern and use single railing . LTG Duration 6 weeks muscle isolation Impairment muscle isolation Impairment unable to extend knee separately from hip extension Medical Coding Specialist Goal (LTG) Pt will be able to perform seated knee extensions using 5 # weight without compensatory hip extension. LTG Duration 6 weeks SPPB Impairment SPPB Impairment IE: 4/12 Medical Coding Specialist Goal (LTG) Pt will improve SPPB score to >7/12. LTG Duration 6-8 weeks HEP Impairment HEP Short Term Goal (STG) Pt will report performing HEP >3 days/week. STG Duration 3 weeks Mcc Goal (LTG) Pt will report performing HEP >3 days/week. LTG Duration 6-8 weeks Assessment Summary Assessment Continued to practice step through gait pattern along with isolated strengthening and of hip, knee, and ankle. Pt demonstrates compensation techniques when trying to isolate joint movement so PT has patient performing various isolation movements to improve his motor control. He is demonstrating improvements since first initiating the exercises as he is now able to perform SAQ with less hip extension compensation. Physical Therapy Plan Frequency and Duration Frequency of Treatment 2x/Week Duration of treatment (weeks) 10 Plan of Care Start Date 01/19/23 Plan of Care End Date 04/19/23 Therapeutic Interventions Therapeutic Interventions Gait Training,Home Exercise Program,Manual Therapy, Neuromuscular Re-education, Orthotic/Prosthetic Management ,Patient/Caregiver Education, Self-Care/Home Management,Soft Tissue Mobilization,Taping, Therapeutic Activities, Therapeutic Exercises Next Visit Focus/Plan Next Note Type Progress Note Next Visit Plan 6 MWT; SPPB
--- NOTE | 2023-02-18 15:04 | PT.OTN ---
Current Diagnoses Cerebral infarction, unspecified (02/18/23) Physical Therapy Treatment Note PT-OP-A Visit Information Start: 01/19/23 09:03 Freq: Status: Active Protocol: Document 02/18/23 14:57 ED (Rec: 02/18/23 15:04 ED [id number]) Out-Patient Physical Therapy Visit Information Visit Information Visit Type Progress Note Visit Start Time 14:15 Visit Stop Time 15:00 Total Visit Minutes 45 Visit Number 8 PT-OP-B Current Condition Start: 01/19/23 09:03 Freq: Status: Active Protocol: Document 01/19/23 13:29 ED (Rec: 01/19/23 13:41 ED [id number]) Current Condition History of Current Condition Onset Date June Current Complaints L sided hemiplegia History of Current Condition 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 He received home health and recently graduated from that. He states he wants to focus on his L UE as it has not made the same amount of progress as his L LE. He ambulates with a SPC and lives with his . he has to use the stairs constantly at home. He reports a few falls at home since the stroke. He says the only exercise he does at home currently is stairs. PT-OP-C Subjective Start: 01/19/23 09:03 Freq: Status: Active Protocol: Document 02/18/23 14:57 ED (Rec: 02/18/23 15:04 ED [id number]) OP-PT Subjective Patient Comments Patient Comments Pt states that he feels like he has made some mild improvements since starting PT such as improving his ability to lift his leg in the air which has made negotiating steps easier. Otherwise he feels like he is really fatigued after therapy and it takes 1-2 days to feel back to normal. PT-OP-E Functional Tests Start: 01/19/23 09:03 Freq: Status: Active Protocol: Document 01/19/23 13:29 ED (Rec: 01/19/23 13:41 ED [id number]) Functional Tests Five Times Sit to Stand Test Score 49 seconds Timed Up and Go (TUG) Score 12 seconds Comments 13' speed test (4m speed test) Other SPPB Name of Test SPPB Score 4/12 PT-OP-M Strength Start: 01/19/23 09:03 Freq: Status: Active Protocol: Document 01/19/23 13:29 ED (Rec: 01/19/23 13:41 ED [id number]) Knee Strength Knee Manual Muscle Testing Left Flexion (S2) 4- Good- Extension (L3) 4- Good- Comments unable to dissociate hip and knee movements; goes into knee extension AND hip extension PT-OP-Q Treatments Start: 01/19/23 09:03 Freq: Status: Active Protocol: Document 02/18/23 14:57 ED (Rec: 02/18/23 15:04 ED [id number]) Cardio Equipment Recumbent Elliptical ([employer]) Duration (Minutes) 8 Resistance 5 Therapeutic Exercises Supine Exercises leg press Supine Exercise Name leg press Side left Resistance 50# Equipment Used leg press Reps/Minutes 2x30 Comments unilateral only Sitting Exercises knee extension Sitting Exercise Name knee extension Side right Reps/Minutes 3x10 Comments able to obtain terminal knee extension Therapeutic Activity Therapeutic Activity squat Name sit <> stand Reps/Minutes 3x10 Comments staggered; L LE closer PT-OP-T Assessment and Plan Start: 01/19/23 09:03 Freq: Status: Active Protocol: Document 02/18/23 14:57 ED (Rec: 02/18/23 15:04 ED [id number]) Physical Therapy Assessment Goals 6MWT Impairment 6MWT Impairment IE: 360 feet with SPC Short Term Goal (STG) Pt will improve 6MWT by 160 feet (MCID) to a score > 520 feet. STG Duration 3 weeks Signals Analyst Goal (LTG) Pt will improve 6MWT by 320 feet (MCID) to a score > 680 feet. LTG Duration 6-8 weeks stairs Impairment stair negotiation Signals Analyst Goal (LTG) Pt will be able to ascend stairs with step through gait pattern and use single railing . LTG Duration 6 weeks -MET muscle isolation Impairment muscle isolation Impairment unable to extend knee separately from hip extension Signals Analyst Goal (LTG) Pt will be able to perform seated knee extensions using 5 # weight without compensatory hip extension. LTG Duration 6 weeks SPPB Impairment SPPB Impairment IE: 4/12 Assisted Goal (LTG) Pt will improve SPPB score to >7/12. LTG Duration 6-8 weeks HEP Impairment HEP Short Term Goal (STG) Pt will report performing HEP >3 days/week. STG Duration 3 weeks Assisted Goal (LTG) Pt will report performing HEP >3 days/week. LTG Duration 6-8 weeks Assessment Summary Assessment PT continues to work with patient to improve L LE strength and motor control. Pt has noticeable improvement in ability to recruit knee extensors and as he can now perform a full ROM LAQ albeit without any resistance. Pt was able to negotiate steps today with step through pattern and used single railing for balance. Discussed with patient what an AFO is and that it may be something to consider as he has negligible dorsiflexion strength/AROM currently. PT has also been working on improving gait quality by promoting a step through gait while using SPC. PT will continue to work on LE strength, balance, and motor control to maximize his functional mobility and safety during daily activities. Physical Therapy Plan Frequency and Duration Frequency of Treatment 2x/Week Duration of treatment (weeks) 10 Plan of Care Start Date 01/19/23 Plan of Care End Date 04/19/23 Therapeutic Interventions Therapeutic Interventions Gait Training,Home Exercise Program,Manual Therapy, Neuromuscular Re-education, Orthotic/Prosthetic Management ,Patient/Caregiver Education, Self-Care/Home Management,Soft Tissue Mobilization,Taping, Therapeutic Activities, Therapeutic Exercises Next Visit Focus/Plan Next Note Type Treatment Note
--- NOTE | 2023-02-25 14:31 | PT.OTN ---
Current Diagnoses Cerebral infarction, unspecified (02/25/23) Physical Therapy Treatment Note PT-OP-A Visit Information Start: 01/19/23 09:03 Freq: Status: Active Protocol: Document 02/25/23 13:50 DCW (Rec: 02/25/23 14:31 DCW [id number]) Out-Patient Physical Therapy Visit Information Visit Information Visit Type Treatment Note Visit Start Time 13:50 Visit Stop Time 14:30 Total Visit Minutes 40 Visit Number 9 PT-OP-B Current Condition Start: 01/19/23 09:03 Freq: Status: Active Protocol: Document 01/19/23 13:29 ED (Rec: 01/19/23 13:41 ED [id number]) Current Condition History of Current Condition Onset Date June Current Complaints L sided hemiplegia History of Current Condition 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 He received home health and recently graduated from that. He states he wants to focus on his L UE as it has not made the same amount of progress as his L LE. He ambulates with a SPC and lives with his . he has to use the stairs constantly at home. He reports a few falls at home since the stroke. He says the only exercise he does at home currently is stairs. PT-OP-C Subjective Start: 01/19/23 09:03 Freq: Status: Active Protocol: Document 02/25/23 13:50 DCW (Rec: 02/25/23 14:31 DCW [id number]) OP-PT Subjective Patient Comments Patient Comments Reports he is working on his two-point gait, still not really used to it yet, notes he feels slower, but is hopeful he will speed up as he gets used to it. PT-OP-E Functional Tests Start: 01/19/23 09:03 Freq: Status: Active Protocol: Document 01/19/23 13:29 ED (Rec: 01/19/23 13:41 ED [id number]) Functional Tests Five Times Sit to Stand Test Score 49 seconds Timed Up and Go (TUG) Score 12 seconds Comments 13' speed test (4m speed test) Other SPPB Name of Test SPPB Score 4/12 PT-OP-M Strength Start: 01/19/23 09:03 Freq: Status: Active Protocol: Document 01/19/23 13:29 ED (Rec: 01/19/23 13:41 ED [id number]) Knee Strength Knee Manual Muscle Testing Left Flexion (S2) 4- Good- Extension (L3) 4- Good- Comments unable to dissociate hip and knee movements; goes into knee extension AND hip extension PT-OP-Q Treatments Start: 01/19/23 09:03 Freq: Status: Active Protocol: Document 02/25/23 13:50 DCW (Rec: 02/25/23 14:31 DCW [id number]) Cardio Equipment Recumbent Elliptical (Biodex) Duration (Minutes) 6 Resistance 4 Gym Equipment Shuttle Recovery Bilateral Squats Resistance 50# Shuttle Recovery Platform Unstable Therapeutic Exercises Standing Exercises TKE Standing Exercise Name TKE Side left Resistance Green Other Exercises Side-stepping Other Exercise Name Side-stepping Side bilateral Resistance @ rail Therapeutic Activity Therapeutic Activity squat Name sit <> stand Reps/Minutes 3x10 Comments 2 step under R foot Neuro Re-Education Treatment Balance Activities Tilt board Details Lateral weight shift PT-OP-T Assessment and Plan Start: 01/19/23 09:03 Freq: Status: Active Protocol: Document 02/25/23 13:50 DCW (Rec: 02/25/23 14:31 DCW [id number]) Physical Therapy Assessment Goals 6MWT Impairment 6MWT Impairment IE: 360 feet with SPC Short Term Goal (STG) Pt will improve 6MWT by 160 feet (MCID) to a score > 520 feet. STG Duration 3 weeks [facility] Goal (LTG) Pt will improve 6MWT by 320 feet (MCID) to a score > 680 feet. LTG Duration 6-8 weeks stairs Impairment stair negotiation Extraction Machine Operator Goal (LTG) Pt will be able to ascend stairs with step through gait pattern and use single railing . LTG Duration 6 weeks -MET muscle isolation Impairment muscle isolation Impairment unable to extend knee separately from hip extension [facility] Goal (LTG) Pt will be able to perform seated knee extensions using 5 # weight without compensatory hip extension. LTG Duration 6 weeks SPPB Impairment SPPB Impairment IE: 4/12 Extraction Machine Operator Goal (LTG) Pt will improve SPPB score to >7/12. LTG Duration 6-8 weeks HEP Impairment HEP Short Term Goal (STG) Pt will report performing HEP >3 days/week. STG Duration 3 weeks Extraction Machine Operator Goal (LTG) Pt will report performing HEP >3 days/week. LTG Duration 6-8 weeks Assessment Summary Assessment Pt tolerated new exercises well today, felt like he was slightly less fatigued overall by end of his session today, good response to new balance challenges. Physical Therapy Plan Frequency and Duration Frequency of Treatment 2x/Week Duration of treatment (weeks) 10 Plan of Care Start Date 01/19/23 Plan of Care End Date 04/19/23 Therapeutic Interventions Therapeutic Interventions Gait Training,Home Exercise Program,Manual Therapy, Neuromuscular Re-education, Orthotic/Prosthetic Management ,Patient/Caregiver Education, Self-Care/Home Management,Soft Tissue Mobilization,Taping, Therapeutic Activities, Therapeutic Exercises Next Visit Focus/Plan Next Note Type Treatment Note
--- NOTE | 2023-03-02 16:46 | PT.OTN ---
Current Diagnoses Cerebral infarction, unspecified (03/02/23) Physical Therapy Treatment Note PT-OP-A Visit Information Start: 01/19/23 09:03 Freq: Status: Active Protocol: Document 03/02/23 13:51 (Rec: 03/02/23 16:45 [id number]) Out-Patient Physical Therapy Visit Information Visit Information Visit Type Treatment Note Visit Start Time 13:46 Visit Stop Time 14:28 Total Visit Minutes 42 Visit Number 10 Number of BAR WELDER Visits 1 PT-OP-B Current Condition Start: 01/19/23 09:03 Freq: Status: Active Protocol: Document 01/19/23 13:29 ED (Rec: 01/19/23 13:41 ED [id number]) Current Condition History of Current Condition Onset Date June Current Complaints L sided hemiplegia History of Current Condition 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 He received home health and recently graduated from that. He states he wants to focus on his L UE as it has not made the same amount of progress as his L LE. He ambulates with a SPC and lives with his . he has to use the stairs constantly at home. He reports a few falls at home since the stroke. He says the only exercise he does at home currently is stairs. PT-OP-C Subjective Start: 01/19/23 09:03 Freq: Status: Active Protocol: Document 03/02/23 13:51 (Rec: 03/02/23 16:45 [id number]) OP-PT Subjective Patient Comments Patient Comments Pt reports he really enjoyed his first OT session, feels like he has made progress with his UE. Likes the different perspectives from different therapists. PT-OP-E Functional Tests Start: 01/19/23 09:03 Freq: Status: Active Protocol: Document 01/19/23 13:29 ED (Rec: 01/19/23 13:41 ED [id number]) Functional Tests Five Times Sit to Stand Test Score 49 seconds Timed Up and Go (TUG) Score 12 seconds Comments 13' speed test (4m speed test) Other SPPB Name of Test SPPB Score 4/12 PT-OP-M Strength Start: 01/19/23 09:03 Freq: Status: Active Protocol: Document 01/19/23 13:29 ED (Rec: 01/19/23 13:41 ED [id number]) Knee Strength Knee Manual Muscle Testing Left Flexion (S2) 4- Good- Extension (L3) 4- Good- Comments unable to dissociate hip and knee movements; goes into knee extension AND hip extension PT-OP-Q Treatments Start: 01/19/23 09:03 Freq: Status: Active Protocol: Document 03/02/23 13:51 SW (Rec: 03/02/23 16:45 SW [id number]) Cardio Equipment Recumbent Elliptical (Biodex) Duration (Minutes) 8 Resistance 4 Gym Equipment Shuttle Recovery Bilateral Squats Resistance 50# Shuttle Recovery Platform Unstable Therapeutic Exercises Sitting Exercises knee extension Sitting Exercise Name knee extension Side right Reps/Minutes 3x10 Comments able to obtain terminal knee extension Standing Exercises TKE Standing Exercise Name TKE Side left Resistance Green Other Exercises Side-stepping Other Exercise Name Side-stepping Side bilateral Resistance @ rail Therapeutic Activity Therapeutic Activity squat Name sit <> stand Reps/Minutes 3x10 Comments 2 step under R foot>L foot Neuro Re-Education Treatment Balance Activities Static balance Details Standing Static balance Surface stable Comments Static > lateral weight shifting, CGA, mirror for visual feedback for postural awareness PT-OP-T Assessment and Plan Start: 01/19/23 09:03 Freq: Status: Active Protocol: Document 03/02/23 13:51 SW (Rec: 03/02/23 16:45 SW [id number]) Physical Therapy Assessment Rehab Potential Rehabilitation Potential Good Evaluation Complexity Number of Personal Factors/Comorbidities 1-2 Number of Body Systems Impaired 3 Clinical Presentation at Evaluation Evolving Impairments Impairments Activity Tolerance,Balance, Functional Activities, Functional Mobility,Gait, Strength,Tone,Transfers Goals 6MWT Impairment 6MWT Impairment IE: 360 feet with SPC Short Term Goal (STG) Pt will improve 6MWT by 160 feet (MCID) to a score > 520 feet. STG Duration 3 weeks Egg Producer Goal (LTG) Pt will improve 6MWT by 320 feet (MCID) to a score > 680 feet. LTG Duration 6-8 weeks stairs Impairment stair negotiation Skilled Nursing Goal (LTG) Pt will be able to ascend stairs with step through gait pattern and use single railing . LTG Duration 6 weeks -MET muscle isolation Impairment muscle isolation Impairment unable to extend knee separately from hip extension Skilled Nursing Goal (LTG) Pt will be able to perform seated knee extensions using 5 # weight without compensatory hip extension. LTG Duration 6 weeks SPPB Impairment SPPB Impairment IE: 4/12 Skilled Nursing Goal (LTG) Pt will improve SPPB score to >7/12. LTG Duration 6-8 weeks HEP Impairment HEP Short Term Goal (STG) Pt will report performing HEP >3 days/week. STG Duration 3 weeks Egg Producer Goal (LTG) Pt will report performing HEP >3 days/week. LTG Duration 6-8 weeks Assessment Summary Assessment Continued LLE strengthening today. Worked on standing balance today with visual feedback for postural alignment, progressed to weight shifting with focus on weight shift in LLE, CGA. Physical Therapy Plan Frequency and Duration Frequency of Treatment 2x/Week Duration of treatment (weeks) 10 Plan of Care Start Date 01/19/23 Plan of Care End Date 04/19/23 Therapeutic Interventions Therapeutic Interventions Gait Training,Home Exercise Program,Manual Therapy, Neuromuscular Re-education, Orthotic/Prosthetic Management ,Patient/Caregiver Education, Self-Care/Home Management,Soft Tissue Mobilization,Taping, Therapeutic Activities, Therapeutic Exercises
--- NOTE | 2023-03-09 17:07 | PT.OTN ---
Current Diagnoses Cerebral infarction, unspecified (03/09/23) Physical Therapy Treatment Note PT-OP-A Visit Information Start: 01/19/23 09:03 Freq: Status: Active Protocol: Document 03/09/23 14:38 (Rec: 03/09/23 17:03 [id number]) Out-Patient Physical Therapy Visit Information Visit Information Visit Type Treatment Note Visit Start Time 14:32 Visit Stop Time 15:20 Total Visit Minutes 48 Visit Number 11 Number of COMMUNITY SUPPORT PROFESSIONAL Visits 2 PT-OP-B Current Condition Start: 01/19/23 09:03 Freq: Status: Active Protocol: Document 01/19/23 13:29 ED (Rec: 01/19/23 13:41 ED [id number]) Current Condition History of Current Condition Onset Date June Current Complaints L sided hemiplegia History of Current Condition 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 He received home health and recently graduated from that. He states he wants to focus on his L UE as it has not made the same amount of progress as his L LE. He ambulates with a SPC and lives with his . he has to use the stairs constantly at home. He reports a few falls at home since the stroke. He says the only exercise he does at home currently is stairs. PT-OP-C Subjective Start: 01/19/23 09:03 Freq: Status: Active Protocol: Document 03/09/23 14:38 (Rec: 03/09/23 17:03 [id number]) OP-PT Subjective Patient Comments Patient Comments Pt reports feeling discouraged with progress after pt had tricep activation at home but then did not at OT today, but then looks back on where pt started to where pt is today and how much progress. Pt reports recent onset of spasticity like movement. PT-OP-E Functional Tests Start: 01/19/23 09:03 Freq: Status: Active Protocol: Document 01/19/23 13:29 ED (Rec: 01/19/23 13:41 ED [id number]) Functional Tests Five Times Sit to Stand Test Score 49 seconds Timed Up and Go (TUG) Score 12 seconds Comments 13' speed test (4m speed test) Other SPPB Name of Test SPPB Score 4/12 PT-OP-M Strength Start: 01/19/23 09:03 Freq: Status: Active Protocol: Document 01/19/23 13:29 ED (Rec: 01/19/23 13:41 ED [id number]) Knee Strength Knee Manual Muscle Testing Left Flexion (S2) 4- Good- Extension (L3) 4- Good- Comments unable to dissociate hip and knee movements; goes into knee extension AND hip extension PT-OP-Q Treatments Start: 01/19/23 09:03 Freq: Status: Active Protocol: Document 03/09/23 14:38 SW (Rec: 03/09/23 17:03 SW [id number]) Gym Equipment Shuttle Recovery Bilateral Squats Resistance 50# Shuttle Recovery Platform Stable Therapeutic Exercises Supine Exercises SAQ Side left Resistance 4# Equipment Used large foam roller Reps/Minutes 3x10 Sitting Exercises knee extension Sitting Exercise Name knee extension Side right Reps/Minutes x2 Comments unable to initiate movement, post SAQ able to initiate movement in sitting Standing Exercises Step taps Comments focused on strengthening, weight bearing into LLE f TKE Standing Exercise Name TKE Side left Resistance Green Therapeutic Activity Therapeutic Activity squat Name sit <> stand Reps/Minutes 3x10 Comments 2 step under R foot Neuro Re-Education Treatment Balance Activities Static balance Details Standing Static balance Surface stable Comments Static > lateral weight shifting, CGA, mirror for visual feedback for postural awareness PT-OP-T Assessment and Plan Start: 01/19/23 09:03 Freq: Status: Active Protocol: Document 03/09/23 14:38 SW (Rec: 03/09/23 17:03 SW [id number]) Physical Therapy Assessment Goals 6MWT Impairment 6MWT Impairment IE: 360 feet with SPC Short Term Goal (STG) Pt will improve 6MWT by 160 feet (MCID) to a score > 520 feet. STG Duration 3 weeks Tenterer Goal (LTG) Pt will improve 6MWT by 320 feet (MCID) to a score > 680 feet. LTG Duration 6-8 weeks stairs Impairment stair negotiation Halfway Goal (LTG) Pt will be able to ascend stairs with step through gait pattern and use single railing . LTG Duration 6 weeks -MET muscle isolation Impairment muscle isolation Impairment unable to extend knee separately from hip extension Tenterer Goal (LTG) Pt will be able to perform seated knee extensions using 5 # weight without compensatory hip extension. LTG Duration 6 weeks SPPB Impairment SPPB Impairment IE: 07/21 Halfway Goal (LTG) Pt will improve SPPB score to >7/12. LTG Duration 6-8 weeks HEP Impairment HEP Short Term Goal (STG) Pt will report performing HEP >3 days/week. STG Duration 3 weeks Tenterer Goal (LTG) Pt will report performing HEP >3 days/week. LTG Duration 6-8 weeks Assessment Summary Assessment Initiated step taps with 4 step unable lift LLE, decreased to a 2 step tap, CGA, bilateral with focus on weight shifting into LLE with R foot tap. Pt may benefit from focus on gait mechanics and weight acceptance in LLE next session. Physical Therapy Plan Frequency and Duration Frequency of Treatment 2x/Week Duration of treatment (weeks) 10 Plan of Care Start Date 01/19/23 Plan of Care End Date 04/19/23 Therapeutic Interventions Therapeutic Interventions Gait Training,Home Exercise Program,Manual Therapy, Neuromuscular Re-education, Orthotic/Prosthetic Management ,Patient/Caregiver Education, Self-Care/Home Management,Soft Tissue Mobilization,Taping, Therapeutic Activities, Therapeutic Exercises Next Visit Focus/Plan Next Note Type Treatment Note
--- NOTE | 2023-03-11 10:01 | PT-OP ANOTE ---
Left voicemail re: missed PT appt today and advising next PT appt is Wed 03/16 at 2:30p - Pt arrives for appt and is able to be seen.
--- NOTE | 2023-03-11 11:13 | PT.OTN ---
Current Diagnoses Cerebral infarction, unspecified (03/11/23) Physical Therapy Treatment Note PT-OP-A Visit Information Start: 01/19/23 09:03 Freq: Status: Active Protocol: Document 03/11/23 10:03 [facility] (Rec: 03/11/23 11:12 [facility] [id number]) Out-Patient Physical Therapy Visit Information Visit Information Visit Type Treatment Note Visit Note Pt late. Full session provided . Visit Start Time 10:05 Visit Stop Time 10:50 Total Visit Minutes 45 Visit Number 12 Number of COLLAR RUNNER Visits 3 Evaluation Information Evaluation Date 01/19/23 PT-OP-B Current Condition Start: 01/19/23 09:03 Freq: Status: Active Protocol: Document 01/19/23 13:29 ED (Rec: 01/19/23 13:41 ED [id number]) Current Condition History of Current Condition Onset Date June Current Complaints L sided hemiplegia History of Current Condition 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 He received home health and recently graduated from that. He states he wants to focus on his L UE as it has not made the same amount of progress as his L LE. He ambulates with a SPC and lives with his . he has to use the stairs constantly at home. He reports a few falls at home since the stroke. He says the only exercise he does at home currently is stairs. PT-OP-C Subjective Start: 01/19/23 09:03 Freq: Status: Active Protocol: Document 03/11/23 10:03 [facility] (Rec: 03/11/23 11:12 [facility] [id number]) OP-PT Subjective Patient Comments Patient Comments Kari reports he woke up late and rushed to get to PT, and is feeling fatigued. He did not eat breakfast yet. He has to remind himself how far he's come because he gets frustrated that he's not able to do what he could before the stroke. PT-OP-E Functional Tests Start: 01/19/23 09:03 Freq: Status: Active Protocol: Document 01/19/23 13:29 ED (Rec: 01/19/23 13:41 ED [id number]) Functional Tests Five Times Sit to Stand Test Score 49 seconds Timed Up and Go (TUG) Score 12 seconds Comments 13' speed test (4m speed test) Other SPPB Name of Test SPPB Score 07/21 PT-OP-M Strength Start: 01/19/23 09:03 Freq: Status: Active Protocol: Document 01/19/23 13:29 ED (Rec: 01/19/23 13:41 ED [id number]) Knee Strength Knee Manual Muscle Testing Left Flexion (S2) 4- Good- Extension (L3) 4- Good- Comments unable to dissociate hip and knee movements; goes into knee extension AND hip extension PT-OP-Q Treatments Start: 01/19/23 09:03 Freq: Status: Active Protocol: Document 03/11/23 10:03 N[facility] (Rec: 03/11/23 11:12 NBM [id number]) Cardio Equipment Recumbent Elliptical ([employer]) Duration (Minutes) 8 Resistance 4 Seat Position 12 seen Gym Equipment Shuttle Recovery Unilateral Squats Details L Resistance 50# Shuttle Recovery Platform Stable Reps/Time 2x10, cues for LE alignment and breath Bilateral Squats Details w and w/o ball squeeze Resistance 50# Shuttle Recovery Platform Stable Reps/Time x10 ea Therapeutic Exercises Supine Exercises hamstring curl Side bilateral Equipment Used 65cm green physioball Reps/Minutes x10 Comments cues to dig heels in, Tami for LLE alignment SAQ Side left Resistance 4# Equipment Used large foam roller Reps/Minutes x10 Sitting Exercises Deep breathing ex Sitting Exercise Name Arm out to side>self-hug> gentle rocking> gratitude mantra - added to HEP Reps/Minutes x2 Comments positive feedback response ( Thank you, body, for all you did today. Therapeutic Activity Therapeutic Activity squat Name sit <> stand Reps/Minutes x5 Self-Care/Home Management Treatment Education Patient Education Home Exercise Program,Safety Other Education Pt educated that realistic rehabiliation progress is not linear over time but instead there is progress with fluctuations. Pt is i/s in deep breathing ex w/ gratitude mantra w/ positive feedback response. PT-OP-T Assessment and Plan Start: 01/19/23 09:03 Freq: Status: Active Protocol: Document 03/11/23 10:03 NBM (Rec: 03/11/23 11:12 NBM [id number]) Physical Therapy Assessment Goals 6MWT Impairment 6MWT Impairment IE: 360 feet with SPC Short Term Goal (STG) Pt will improve 6MWT by 160 feet (MCID) to a score > 520 feet. STG Duration 3 weeks Nursing Home Goal (LTG) Pt will improve 6MWT by 320 feet (MCID) to a score > 680 feet. LTG Duration 6-8 weeks stairs Impairment stair negotiation Nursing Home Goal (LTG) Pt will be able to ascend stairs with step through gait pattern and use single railing . LTG Duration 6 weeks -MET muscle isolation Impairment muscle isolation Impairment unable to extend knee separately from hip extension Arch Support Maker Goal (LTG) Pt will be able to perform seated knee extensions using 5 # weight without compensatory hip extension. LTG Duration 6 weeks SPPB Impairment SPPB Impairment IE: 4/12 Nursing Home Goal (LTG) Pt will improve SPPB score to >7/12. LTG Duration 6-8 weeks HEP Impairment HEP Short Term Goal (STG) Pt will report performing HEP >3 days/week. STG Duration 3 weeks Arch Support Maker Goal (LTG) Pt will report performing HEP >3 days/week. LTG Duration 6-8 weeks Assessment Summary Assessment Kari presents today with increased fatigue and decreased activity tolerance as compared to previous sessions; pt sleeping in and rushing to PT without breakfast may be a contributing factor. Treatment focus on LE strengthening and breathing. Pt educated that realistic rehabilitation progress is not linear over time but instead there is progress with fluctuations. Pt is instructed in deep breathing ex w/ gratitude mantra w/ positive feedback response. Physical Therapy Plan Frequency and Duration Frequency of Treatment 2x/Week Duration of treatment (weeks) 10 Plan of Care Start Date 01/19/23 Plan of Care End Date 04/19/23 Therapeutic Interventions Therapeutic Interventions Gait Training,Home Exercise Program,Manual Therapy, Neuromuscular Re-education, Orthotic/Prosthetic Management ,Patient/Caregiver Education, Self-Care/Home Management,Soft Tissue Mobilization,Taping, Therapeutic Activities, Therapeutic Exercises Next Visit Focus/Plan Next Note Type Treatment Note
--- NOTE | 2023-03-16 17:16 | PT.OTN ---
Addendum entered and electronically signed by Dee Ryanins 03/17/23 12:59: Forgot an exercise- STS 2 x 5 high low table, x1 set LLE bias x1 set bilat LE focus on equal weight shift, rest req between sets Original Note: Addendum entered and electronically signed by Dee Ryanins 03/17/23 12:56: forgot an exercise Original Note: Current Diagnoses Cerebral infarction, unspecified (03/16/23) Physical Therapy Treatment Note PT-OP-A Visit Information Start: 01/19/23 09:03 Freq: Status: Active Protocol: Document 03/16/23 15:05 SW (Rec: 03/16/23 17:16 SW [id number]) Out-Patient Physical Therapy Visit Information Visit Information Visit Type Treatment Note Visit Note Pt late d/t OT session. Visit Start Time 14:37 Visit Stop Time 15:15 Total Visit Minutes 38 Visit Number 13 Number of WASTEWATER PLANT OPERATOR Visits 4 PT-OP-B Current Condition Start: 01/19/23 09:03 Freq: Status: Active Protocol: Document 01/19/23 13:29 ED (Rec: 01/19/23 13:41 ED [id number]) Current Condition History of Current Condition Onset Date June Current Complaints L sided hemiplegia History of Current Condition 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 He received [employer] health and recently graduated from that. He states he wants to focus on his L UE as it has not made the same amount of progress as his L LE. He ambulates with a SPC and lives with his . he has to use the stairs constantly at home. He reports a few falls at home since the stroke. He says the only exercise he does at home currently is stairs. PT-OP-C Subjective Start: 01/19/23 09:03 Freq: Status: Active Protocol: Document 03/16/23 15:05 SW (Rec: 03/16/23 17:16 SW [id number]) OP-PT Subjective Patient Comments Patient Comments Pt reports same level of fatigue this week as last week . Wearing a heart monitor. Pt feels like he is doing more at home, pushing himself which could be contributing to fatigue. PT-OP-E Functional Tests Start: 01/19/23 09:03 Freq: Status: Active Protocol: Document 01/19/23 13:29 ED (Rec: 01/19/23 13:41 ED [id number]) Functional Tests Five Times Sit to Stand Test Score 49 seconds Timed Up and Go (TUG) Score 12 seconds Comments 13' speed test (4m speed test) Other SPPB Name of Test SPPB Score 12 PT-OP-M Strength Start: 01/19/23 09:03 Freq: Status: Active Protocol: Document 01/19/23 13:29 ED (Rec: 01/19/23 13:41 ED [id number]) Knee Strength Knee Manual Muscle Testing Left Flexion (S2) 4- Good- Extension (L3) 4- Good- Comments unable to dissociate hip and knee movements; goes into knee extension AND hip extension PT-OP-Q Treatments Start: 01/19/23 09:03 Freq: Status: Active Protocol: Document 03/16/23 15:05 SW (Rec: 03/16/23 17:16 SW [id number]) Therapeutic Exercises Supine Exercises hamstring curl Side bilateral Equipment Used 65cm green physioball Reps/Minutes x10 Comments cues to dig heels in, Tami for LLE alignment SAQ Side left Resistance 4# Equipment Used large foam roller Reps/Minutes x10 Sitting Exercises knee extension Sitting Exercise Name knee extension Side left Equipment Used 4# Reps/Minutes 2x10 Comments Tactile cues to facilitate decreased hip extension Standing Exercises Step taps Standing Exercise Name Step taps with weight shifting Side left Equipment Used 6 step Comments cues for shifting weight in LLE TKE Standing Exercise Name TKE Side left Resistance Green Other Exercises Side-stepping Other Exercise Name Side-stepping Side bilateral Resistance @ rail Comments cues for hip alignment Gait Training Gait Activity walking Description reciprocal stepping practice Device Used // bar prn Level of Assistance CGA Surface flat Distance/Duration x6' in // bars; x300' Comments working on symmetrical step lengths, shifting weight into LLE, cues for upright posture Neuro Re-Education Treatment Balance Activities Static balance Details NBOS Comments Static>weight shifting, focus on weight shifting and maintaining balance with a NBOS Self-Care/Home Management Treatment Education Patient Education Home Exercise Program,Posture, Safety Other Education Pt education on energy conservation techniques and safety. PT-OP-T Assessment and Plan Start: 01/19/23 09:03 Freq: Status: Active Protocol: Document 03/16/23 15:05 SW (Rec: 03/16/23 17:16 [id number]) Physical Therapy Assessment Assessment Summary Assessment Pt continued to present with same level of fatigue as last session. Pt reports wearing heart monitor. Frequent request for pt feedback d/t fatigue level for safety throughout therapeutic exercises. Verbal cues throughout session to breath through exercises to prevent valsalva manuever. Tactile cues with knee extension today to faciliate isolation of quad mm and decrease hip ext working toward, mm isolation goal. Step taps, 6 step with weight shifts into LLE to strengthen, mechanics, and control to work toward stair goal, CGA. Pt quick to fatigue , rest breaks given throughout session. Physical Therapy Plan Frequency and Duration Frequency of Treatment 2x/Week Duration of treatment (weeks) 10 Plan of Care Start Date 01/19/23 Plan of Care End Date 04/19/23 Therapeutic Interventions Therapeutic Interventions Gait Training,Home Exercise Program,Manual Therapy, Neuromuscular Re-education, Orthotic/Prosthetic Management ,Patient/Caregiver Education, Self-Care/Home Management,Soft Tissue Mobilization,Taping, Therapeutic Activities, Therapeutic Exercises Next Visit Focus/Plan Next Note Type Treatment Note
--- NOTE | 2023-03-18 12:02 | PT.OTN ---
Current Diagnoses Cerebral infarction, unspecified (03/18/23) Physical Therapy Treatment Note PT-OP-A Visit Information Start: 01/19/23 09:03 Freq: Status: Active Protocol: Document 03/18/23 11:15 DCW (Rec: 03/18/23 12:02 DCW [id number]) Out-Patient Physical Therapy Visit Information Visit Information Visit Type Treatment Note Visit Start Time 11:15 Visit Stop Time 12:00 Total Visit Minutes 45 Visit Number 14 Number of BLOW TORCH BURNER Visits 0 Evaluation Information Evaluation Date 01/19/23 PT-OP-B Current Condition Start: 01/19/23 09:03 Freq: Status: Active Protocol: Document 01/19/23 13:29 ED (Rec: 01/19/23 13:41 ED [id number]) Current Condition History of Current Condition Onset Date June Current Complaints L sided hemiplegia History of Current Condition 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 He received home health and recently graduated from that. He states he wants to focus on his L UE as it has not made the same amount of progress as his L LE. He ambulates with a SPC and lives with his . he has to use the stairs constantly at home. He reports a few falls at home since the stroke. He says the only exercise he does at home currently is stairs. PT-OP-C Subjective Start: 01/19/23 09:03 Freq: Status: Active Protocol: Document 03/18/23 11:15 DCW (Rec: 03/18/23 12:02 DCW [id number]) OP-PT Subjective Patient Comments Patient Comments I'm making improvement, but maybe not as quickly as I should be. PT-OP-E Functional Tests Start: 01/19/23 09:03 Freq: Status: Active Protocol: Document 01/19/23 13:29 ED (Rec: 01/19/23 13:41 ED [id number]) Functional Tests Five Times Sit to Stand Test Score 49 seconds Timed Up and Go (TUG) Score 12 seconds Comments 13' speed test (4m speed test) Other SPPB Name of Test SPPB Score 4/12 PT-OP-M Strength Start: 01/19/23 09:03 Freq: Status: Active Protocol: Document 01/19/23 13:29 ED (Rec: 01/19/23 13:41 ED [id number]) Knee Strength Knee Manual Muscle Testing Left Flexion (S2) 4- Good- Extension (L3) 4- Good- Comments unable to dissociate hip and knee movements; goes into knee extension AND hip extension PT-OP-Q Treatments Start: 01/19/23 09:03 Freq: Status: Active Protocol: Document 03/18/23 11:15 DCW (Rec: 03/18/23 12:02 DCW [id number]) Cardio Equipment Recumbent Elliptical (Biodex) Duration (Minutes) 8 Resistance 4 Seat Position 12 Gym Equipment Shuttle Recovery Unilateral Squats Details L Resistance 50# Shuttle Recovery Platform Stable Reps/Time 2x10, cues for LE alignment and breath Bilateral Squats Details /c ball squeeze Resistance 75# Shuttle Recovery Platform Unstable Reps/Time x10 ea Therapeutic Exercises Other Exercises Side-stepping Other Exercise Name Side-stepping Side bilateral Resistance @ rail Comments cues for hip alignment Neuro Re-Education Treatment Balance Activities Tandem Stance Details Tandem Stance Equipment // bars Static balance Details NBOS Surface Blue Foam Tilt board Details Lateral weight shift, DF/PF PT-OP-T Assessment and Plan Start: 01/19/23 09:03 Freq: Status: Active Protocol: Document 03/18/23 11:15 DCW (Rec: 03/18/23 12:02 DCW [id number]) Physical Therapy Assessment Impairments Impairments Activity Tolerance,Balance, Functional Activities, Functional Mobility,Gait, Strength,Tone,Transfers Goals 6MWT Impairment 6MWT Impairment IE: 360 feet with SPC Short Term Goal (STG) Pt will improve 6MWT by 160 feet (MCID) to a score > 520 feet. STG Duration 3 weeks Detention Goal (LTG) Pt will improve 6MWT by 320 feet (MCID) to a score > 680 feet. LTG Duration 6-8 weeks stairs Impairment stair negotiation Heel Caser Goal (LTG) Pt will be able to ascend stairs with step through gait pattern and use single railing . LTG Duration 6 weeks -MET muscle isolation Impairment muscle isolation Impairment unable to extend knee separately from hip extension Heel Caser Goal (LTG) Pt will be able to perform seated knee extensions using 5 # weight without compensatory hip extension. LTG Duration 6 weeks SPPB Impairment SPPB Impairment IE: 07/21 Detention Goal (LTG) Pt will improve SPPB score to >7/12. LTG Duration 6-8 weeks HEP Impairment HEP Short Term Goal (STG) Pt will report performing HEP >3 days/week. STG Duration 3 weeks Heel Caser Goal (LTG) Pt will report performing HEP >3 days/week. LTG Duration 6-8 weeks Assessment Summary Assessment Pt noted significant struggle with most balance activities, but was able to perform with minimal assistance from therapist for stability. Plans to practice tandem stance more at home. Is showing good overall response, less fatigue from PT today. Physical Therapy Plan Frequency and Duration Frequency of Treatment 2x/Week Duration of treatment (weeks) 10 Plan of Care Start Date 01/19/23 Plan of Care End Date 04/19/23 Therapeutic Interventions Therapeutic Interventions Gait Training,Home Exercise Program,Manual Therapy, Neuromuscular Re-education, Orthotic/Prosthetic Management ,Patient/Caregiver Education, Self-Care/Home Management,Soft Tissue Mobilization,Taping, Therapeutic Activities, Therapeutic Exercises Next Visit Focus/Plan Next Note Type Treatment Note Next Visit Plan Balance challenges, gait/stair training, strengthening
--- NOTE | 2023-03-23 16:55 | PT.OTN ---
Current Diagnoses Cerebral infarction, unspecified (03/23/23) Physical Therapy Treatment Note PT-OP-A Visit Information Start: 01/19/23 09:03 Freq: Status: Active Protocol: Document 03/23/23 14:39 (Rec: 03/23/23 15:17 [id number]) Out-Patient Physical Therapy Visit Information Visit Information Visit Type Treatment Note Visit Start Time 14:33 Visit Stop Time 15:15 Total Visit Minutes 42 Visit Number 15 Number of ELECTRICAL MAINTENANCE SUPERVISOR Visits 1 PT-OP-B Current Condition Start: 01/19/23 09:03 Freq: Status: Active Protocol: Document 01/19/23 13:29 ED (Rec: 01/19/23 13:41 ED [id number]) Current Condition History of Current Condition Onset Date June Current Complaints L sided hemiplegia History of Current Condition 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 He received home health and recently graduated from that. He states he wants to focus on his L UE as it has not made the same amount of progress as his L LE. He ambulates with a SPC and lives with his . he has to use the stairs constantly at home. He reports a few falls at home since the stroke. He says the only exercise he does at home currently is stairs. PT-OP-C Subjective Start: 01/19/23 09:03 Freq: Status: Active Protocol: Document 03/23/23 14:39 (Rec: 03/23/23 15:17 [id number]) OP-PT Subjective Patient Comments Patient Comments Pt reports feeling ok with all things considering PT-OP-E Functional Tests Start: 01/19/23 09:03 Freq: Status: Active Protocol: Document 01/19/23 13:29 ED (Rec: 01/19/23 13:41 ED [id number]) Functional Tests Five Times Sit to Stand Test Score 49 seconds Timed Up and Go (TUG) Score 12 seconds Comments 13' speed test (4m speed test) Other SPPB Name of Test SPPB Score 07/21 PT-OP-M Strength Start: 01/19/23 09:03 Freq: Status: Active Protocol: Document 01/19/23 13:29 ED (Rec: 01/19/23 13:41 ED [id number]) Knee Strength Knee Manual Muscle Testing Left Flexion (S2) 4- Good- Extension (L3) 4- Good- Comments unable to dissociate hip and knee movements; goes into knee extension AND hip extension PT-OP-Q Treatments Start: 01/19/23 09:03 Freq: Status: Active Protocol: Document 03/23/23 14:39 SW (Rec: 03/23/23 15:17 SW [id number]) Cardio Equipment Recumbent Elliptical (Biodex) Duration (Minutes) 8 Resistance 5 Seat Position 12 Neuro Re-Education Treatment Balance Activities Tandem Stance Details Tandem Stance Equipment // bars Static balance Details NBOS Surface Blue Foam, Stable w/EC Comments NBOS w/EC to decrease visual reliance for balance and challenge proprioceptors Tilt board Details Lateral weight shift, DF/PF PT-OP-T Assessment and Plan Start: 01/19/23 09:03 Freq: Status: Active Protocol: Document 03/23/23 14:39 SW (Rec: 03/23/23 15:17 SW [id number]) Physical Therapy Assessment Goals 6MWT Impairment 6MWT Impairment IE: 360 feet with SPC Short Term Goal (STG) Pt will improve 6MWT by 160 feet (MCID) to a score > 520 feet. STG Duration 3 weeks Care Home Goal (LTG) Pt will improve 6MWT by 320 feet (MCID) to a score > 680 feet. LTG Duration 6-8 weeks stairs Impairment stair negotiation Garbage Depot Worker Goal (LTG) Pt will be able to ascend stairs with step through gait pattern and use single railing . LTG Duration 6 weeks -MET muscle isolation Impairment muscle isolation Impairment unable to extend knee separately from hip extension Care Home Goal (LTG) Pt will be able to perform seated knee extensions using 5 # weight without compensatory hip extension. LTG Duration 6 weeks SPPB Impairment SPPB Impairment IE: 4/12 Garbage Depot Worker Goal (LTG) Pt will improve SPPB score to >7/12. LTG Duration 6-8 weeks HEP Impairment HEP Short Term Goal (STG) Pt will report performing HEP >3 days/week. STG Duration 3 weeks Garbage Depot Worker Goal (LTG) Pt will report performing HEP >3 days/week. LTG Duration 6-8 weeks Assessment Summary Assessment Pt continues to be challenged with balance this session, educated pt on balance systems within the body and proprioception challenge without visual input. Session focused on strengthening and balance toward goals within POC, multiple verbal cues required for extension of LLE during balance challenges, and weight shifting. Physical Therapy Plan Frequency and Duration Frequency of Treatment 2x/Week Duration of treatment (weeks) 10 Plan of Care Start Date 01/19/23 Plan of Care End Date 04/19/23 Therapeutic Interventions Therapeutic Interventions Gait Training,Home Exercise Program,Manual Therapy, Neuromuscular Re-education, Orthotic/Prosthetic Management ,Patient/Caregiver Education, Self-Care/Home Management,Soft Tissue Mobilization,Taping, Therapeutic Activities, Therapeutic Exercises Next Visit Focus/Plan Next Note Type Treatment Note Next Visit Plan Balance challenges, gait/stair training, strengthening
--- NOTE | 2023-03-25 12:25 | PT.OTN ---
Current Diagnoses Cerebral infarction, unspecified (03/25/23) Physical Therapy Treatment Note PT-OP-A Visit Information Start: 01/19/23 09:03 Freq: Status: Active Protocol: Document 03/25/23 11:20 DCW (Rec: 03/25/23 12:25 DCW [id number]) Out-Patient Physical Therapy Visit Information Visit Information Visit Type Treatment Note Visit Start Time 11:20 Visit Stop Time 12:00 Total Visit Minutes 40 Visit Number 16 Number of DITCH REPAIRER Visits 0 Evaluation Information Evaluation Date 01/19/23 PT-OP-B Current Condition Start: 01/19/23 09:03 Freq: Status: Active Protocol: Document 01/19/23 13:29 ED (Rec: 01/19/23 13:41 ED [id number]) Current Condition History of Current Condition Onset Date June Current Complaints L sided hemiplegia History of Current Condition 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 He received home health and recently graduated from that. He states he wants to focus on his L UE as it has not made the same amount of progress as his L LE. He ambulates with a SPC and lives with his . he has to use the stairs constantly at home. He reports a few falls at home since the stroke. He says the only exercise he does at home currently is stairs. PT-OP-C Subjective Start: 01/19/23 09:03 Freq: Status: Active Protocol: Document 03/25/23 11:20 DCW (Rec: 03/25/23 12:25 DCW [id number]) OP-PT Subjective Patient Comments Patient Comments Pt reports he suffered a fall since last visit, has felt more off balance ever since. PT-OP-E Functional Tests Start: 01/19/23 09:03 Freq: Status: Active Protocol: Document 01/19/23 13:29 ED (Rec: 01/19/23 13:41 ED [id number]) Functional Tests Five Times Sit to Stand Test Score 49 seconds Timed Up and Go (TUG) Score 12 seconds Comments 13' speed test (4m speed test) Other SPPB Name of Test SPPB Score 12 PT-OP-M Strength Start: 01/19/23 09:03 Freq: Status: Active Protocol: Document 01/19/23 13:29 ED (Rec: 01/19/23 13:41 ED [id number]) Knee Strength Knee Manual Muscle Testing Left Flexion (S2) 4- Good- Extension (L3) 4- Good- Comments unable to dissociate hip and knee movements; goes into knee extension AND hip extension PT-OP-Q Treatments Start: 01/19/23 09:03 Freq: Status: Active Protocol: Document 03/25/23 11:20 DCW (Rec: 03/25/23 12:25 DCW [id number]) Cardio Equipment Recumbent Elliptical (BiodIndigo Clothing) Duration (Minutes) 8 Resistance 5->6 Seat Position 12 Therapeutic Activity Therapeutic Activity Floor Transfers Reps/Minutes x2 Comments Chair->Kneel->Prone->Quadruped ->Long Kneel->Half-Kneel-> Standing PT-OP-T Assessment and Plan Start: 01/19/23 09:03 Freq: Status: Active Protocol: Document 03/25/23 11:20 DCW (Rec: 03/25/23 12:25 DCW [id number]) Physical Therapy Assessment Impairments Impairments Activity Tolerance,Balance, Functional Activities, Functional Mobility,Gait, Strength,Tone,Transfers Goals 6MWT Impairment 6MWT Impairment IE: 360 feet with SPC Short Term Goal (STG) Pt will improve 6MWT by 160 feet (MCID) to a score > 520 feet. STG Duration 3 weeks Command And Control Systems Integrator Goal (LTG) Pt will improve 6MWT by 320 feet (MCID) to a score > 680 feet. LTG Duration 6-8 weeks stairs Impairment stair negotiation Long-Term Goal (LTG) Pt will be able to ascend stairs with step through gait pattern and use single railing . LTG Duration 6 weeks -MET muscle isolation Impairment muscle isolation Impairment unable to extend knee separately from hip extension Command And Control Systems Integrator Goal (LTG) Pt will be able to perform seated knee extensions using 5 # weight without compensatory hip extension. LTG Duration 6 weeks SPPB Impairment SPPB Impairment IE: 4/12 Command And Control Systems Integrator Goal (LTG) Pt will improve SPPB score to >7/12. LTG Duration 6-8 weeks HEP Impairment HEP Short Term Goal (STG) Pt will report performing HEP >3 days/week. STG Duration 3 weeks Command And Control Systems Integrator Goal (LTG) Pt will report performing HEP >3 days/week. LTG Duration 6-8 weeks Assessment Summary Assessment After pt's fall Wednesday evening, he has been very concerned about how difficult it was for him to get up off the floor. Spent majority of today's session working on floor transfers. Pt showed very good progress, first attempt CGA->Min Ax1, second attempt SBA->CGA. Very happy with techniques learned today. Physical Therapy Plan Frequency and Duration Frequency of Treatment 2x/Week Duration of treatment (weeks) 10 Plan of Care Start Date 01/19/23 Plan of Care End Date 04/19/23 Therapeutic Interventions Therapeutic Interventions Gait Training,Home Exercise Program,Manual Therapy, Neuromuscular Re-education, Orthotic/Prosthetic Management ,Patient/Caregiver Education, Self-Care/Home Management,Soft Tissue Mobilization,Taping, Therapeutic Activities, Therapeutic Exercises Next Visit Focus/Plan Next Note Type Treatment Note Next Visit Plan Balance challenges, gait/stair training, strengthening
--- NOTE | 2023-03-30 15:37 | PT.OTN ---
Current Diagnoses Cerebral infarction, unspecified (03/30/23) Physical Therapy Treatment Note PT-OP-A Visit Information Start: 01/19/23 09:03 Freq: Status: Active Protocol: Document 03/30/23 14:28 (Rec: 03/30/23 15:37 [id number]) Out-Patient Physical Therapy Visit Information Visit Information Visit Type Treatment Note Visit Start Time 14:25 Visit Stop Time 15:10 Total Visit Minutes 45 Visit Number 17 Number of ACID TESTER Visits 1 PT-OP-B Current Condition Start: 01/19/23 09:03 Freq: Status: Active Protocol: Document 01/19/23 13:29 ED (Rec: 01/19/23 13:41 ED [id number]) Current Condition History of Current Condition Onset Date June Current Complaints L sided hemiplegia History of Current Condition 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 He received home health and recently graduated from that. He states he wants to focus on his L UE as it has not made the same amount of progress as his L LE. He ambulates with a SPC and lives with his . he has to use the stairs constantly at home. He reports a few falls at home since the stroke. He says the only exercise he does at home currently is stairs. PT-OP-C Subjective Start: 01/19/23 09:03 Freq: Status: Active Protocol: Document 03/30/23 14:28 (Rec: 03/30/23 15:37 [id number]) OP-PT Subjective Patient Comments Patient Comments Pt reports no complaints today . PT-OP-E Functional Tests Start: 01/19/23 09:03 Freq: Status: Active Protocol: Document 01/19/23 13:29 ED (Rec: 01/19/23 13:41 ED [id number]) Functional Tests Five Times Sit to Stand Test Score 49 seconds Timed Up and Go (TUG) Score 12 seconds Comments 13' speed test (4m speed test) Other SPPB Name of Test SPPB Score 07/21 PT-OP-M Strength Start: 01/19/23 09:03 Freq: Status: Active Protocol: Document 01/19/23 13:29 ED (Rec: 01/19/23 13:41 ED [id number]) Knee Strength Knee Manual Muscle Testing Left Flexion (S2) 4- Good- Extension (L3) 4- Good- Comments unable to dissociate hip and knee movements; goes into knee extension AND hip extension PT-OP-Q Treatments Start: 01/19/23 09:03 Freq: Status: Active Protocol: Document 03/30/23 14:28 SW (Rec: 03/30/23 15:37 [id number]) Cardio Equipment Recumbent Elliptical (Biodex) Duration (Minutes) 8 Resistance 6 Seat Position 12 Other educated pt on RPM goal prior to increasing resistance Therapeutic Exercises Standing Exercises Step ups Standing Exercise Name Step ups Side bilateral Equipment Used Handrail RUE Reps/Minutes x5 ea Therapeutic Activity Therapeutic Activity Stairs Name Stair training Comments Initiated in PT, focused on reciprocal stair training ascending/descending, weight shifting, and safety with foot clearance Gait Training Gait Activity walking Device Used 3rd foot cane Level of Assistance SBA, gait belt donned Surface carpet/tile Distance/Duration 120ft, 150ft Treatment Focus coordination w/AD, gait mechan , foot clearance for safety, weight shifting PT-OP-T Assessment and Plan Start: 01/19/23 09:03 Freq: Status: Active Protocol: Document 03/30/23 14:28 (Rec: 03/30/23 15:37 [id number]) Physical Therapy Assessment Goals 6MWT Impairment 6MWT Impairment IE: 360 feet with SPC Short Term Goal (STG) Pt will improve 6MWT by 160 feet (MCID) to a score > 520 feet. STG Duration 3 weeks Alf Goal (LTG) Pt will improve 6MWT by 320 feet (MCID) to a score > 680 feet. LTG Duration 6-8 weeks stairs Impairment stair negotiation Alf Goal (LTG) Pt will be able to ascend stairs with step through gait pattern and use single railing . LTG Duration 6 weeks -MET muscle isolation Impairment muscle isolation Impairment unable to extend knee separately from hip extension Alf Goal (LTG) Pt will be able to perform seated knee extensions using 5 # weight without compensatory hip extension. LTG Duration 6 weeks SPPB Impairment SPPB Impairment IE: 4/12 High School Music Director Goal (LTG) Pt will improve SPPB score to >7/12. LTG Duration 6-8 weeks HEP Impairment HEP Short Term Goal (STG) Pt will report performing HEP >3 days/week. STG Duration 3 weeks High School Music Director Goal (LTG) Pt will report performing HEP >3 days/week. LTG Duration 6-8 weeks Assessment Summary Assessment Session focused on gait/stair training this session toward pt goals. Initiated gait with pt new 3rd foot cane this session, focusing on reciprical gait, mechanics, weight shifting, stepping, and foot clearance emphasizing heel strike to improve toe drag and increase safety. Pt inquiring about orthotic for L foot to assist with foot drop , discussed with PT, plan to discuss next session. Physical Therapy Plan Frequency and Duration Frequency of Treatment 2x/Week Duration of treatment (weeks) 10 Plan of Care Start Date 01/19/23 Plan of Care End Date 04/19/23 Therapeutic Interventions Therapeutic Interventions Gait Training,Home Exercise Program,Manual Therapy, Neuromuscular Re-education, Orthotic/Prosthetic Management ,Patient/Caregiver Education, Self-Care/Home Management,Soft Tissue Mobilization,Taping, Therapeutic Activities, Therapeutic Exercises Next Visit Focus/Plan Next Note Type Treatment Note Next Visit Plan Balance challenges, gait/stair training, strengthening
--- NOTE | 2023-04-01 14:28 | PT.OTN ---
Current Diagnoses Cerebral infarction, unspecified (04/01/23) Physical Therapy Treatment Note PT-OP-A Visit Information Start: 01/19/23 09:03 Freq: Status: Active Protocol: Document 04/01/23 13:35 DCW (Rec: 04/01/23 14:28 DCW [id number]) Out-Patient Physical Therapy Visit Information Visit Information Visit Type Treatment Note Visit Start Time 13:35 Visit Stop Time 14:20 Total Visit Minutes 45 Visit Number 18 Number of FISHER LOBSTER Visits 0 Evaluation Information Evaluation Date 01/19/23 PT-OP-B Current Condition Start: 01/19/23 09:03 Freq: Status: Active Protocol: Document 01/19/23 13:29 ED (Rec: 01/19/23 13:41 ED [id number]) Current Condition History of Current Condition Onset Date June Current Complaints L sided hemiplegia History of Current Condition 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 He received home health and recently graduated from that. He states he wants to focus on his L UE as it has not made the same amount of progress as his L LE. He ambulates with a SPC and lives with his . he has to use the stairs constantly at home. He reports a few falls at home since the stroke. He says the only exercise he does at home currently is stairs. PT-OP-C Subjective Start: 01/19/23 09:03 Freq: Status: Active Protocol: Document 04/01/23 13:35 DCW (Rec: 04/01/23 14:28 DCW [id number]) OP-PT Subjective Patient Comments Patient Comments A little bit unsteady today, but I think I say that every time I see you. PT-OP-E Functional Tests Start: 01/19/23 09:03 Freq: Status: Active Protocol: Document 01/19/23 13:29 ED (Rec: 01/19/23 13:41 ED [id number]) Functional Tests Five Times Sit to Stand Test Score 49 seconds Timed Up and Go (TUG) Score 12 seconds Comments 13' speed test (4m speed test) Other SPPB Name of Test SPPB Score 4/12 PT-OP-M Strength Start: 01/19/23 09:03 Freq: Status: Active Protocol: Document 01/19/23 13:29 ED (Rec: 01/19/23 13:41 ED [id number]) Knee Strength Knee Manual Muscle Testing Left Flexion (S2) 4- Good- Extension (L3) 4- Good- Comments unable to dissociate hip and knee movements; goes into knee extension AND hip extension PT-OP-Q Treatments Start: 01/19/23 09:03 Freq: Status: Active Protocol: Document 04/01/23 13:35 DCW (Rec: 04/01/23 14:28 DCW [id number]) Cardio Equipment Recumbent Elliptical (Biodex) Duration (Minutes) 8 Resistance 6 Seat Position 12 Therapeutic Activity Therapeutic Activity Stairs Name Stairs Comments Ascend/Descend 6 stairs with reciprocal steps Rail and then SPC Floor Transfers Reps/Minutes x2 Comments Chair->Kneel->Prone->Quadruped ->Long Kneel->Half-Kneel-> Standing PT-OP-T Assessment and Plan Start: 01/19/23 09:03 Freq: Status: Active Protocol: Document 04/01/23 13:35 DCW (Rec: 04/01/23 14:28 DCW [id number]) Physical Therapy Assessment Impairments Impairments Activity Tolerance,Balance, Functional Activities, Functional Mobility,Gait, Strength,Tone,Transfers Goals 6MWT Impairment 6MWT Impairment IE: 360 feet with SPC Short Term Goal (STG) Pt will improve 6MWT by 160 feet (MCID) to a score > 520 feet. STG Duration 3 weeks [facility] Goal (LTG) Pt will improve 6MWT by 320 feet (MCID) to a score > 680 feet. LTG Duration 6-8 weeks stairs Impairment stair negotiation Ground Surveillance Systems Operator Goal (LTG) Pt will be able to ascend stairs with step through gait pattern and use single railing . LTG Duration 6 weeks -MET muscle isolation Impairment muscle isolation Impairment unable to extend knee separately from hip extension [facility] Goal (LTG) Pt will be able to perform seated knee extensions using 5 # weight without compensatory hip extension. LTG Duration 6 weeks SPPB Impairment SPPB Impairment IE: 412 [facility] Goal (LTG) Pt will improve SPPB score to >7/12. LTG Duration 6-8 weeks HEP Impairment HEP Short Term Goal (STG) Pt will report performing HEP >3 days/week. STG Duration 3 weeks [facility] Goal (LTG) Pt will report performing HEP >3 days/week. LTG Duration 6-8 weeks Assessment Summary Assessment Pt had a little more trouble with floor transfers vs last week, due to both increased LE fatigue and increased confidence leading to attempting to perform activity quicker and more impulsively. Improved with second attempt. Pt did well with using SPC on stairs, however still should practice further in PT prior to attempting at home with less available assistance. Physical Therapy Plan Frequency and Duration Frequency of Treatment 2x/Week Duration of treatment (weeks) 10 Plan of Care Start Date 01/19/23 Plan of Care End Date 04/19/23 Therapeutic Interventions Therapeutic Interventions Gait Training,Home Exercise Program,Manual Therapy, Neuromuscular Re-education, Orthotic/Prosthetic Management ,Patient/Caregiver Education, Self-Care/Home Management,Soft Tissue Mobilization,Taping, Therapeutic Activities, Therapeutic Exercises Next Visit Focus/Plan Next Note Type Treatment Note Next Visit Plan Balance challenges, gait/stair training, strengthening
--- NOTE | 2023-04-06 15:45 | PT.OTN ---
Current Diagnoses Cerebral infarction, unspecified (04/06/23) Physical Therapy Treatment Note PT-OP-A Visit Information Start: 01/19/23 09:03 Freq: Status: Active Protocol: Document 04/06/23 14:36 (Rec: 04/06/23 15:45 [id number]) Out-Patient Physical Therapy Visit Information Visit Information Visit Type Treatment Note Visit Note Pt late Visit Start Time 14:38 Visit Stop Time 15:18 Total Visit Minutes 40 Visit Number 19 Number of PRECISION LENS CENTERER AND EDGER Visits 1 PT-OP-B Current Condition Start: 01/19/23 09:03 Freq: Status: Active Protocol: Document 01/19/23 13:29 ED (Rec: 01/19/23 13:41 ED [id number]) Current Condition History of Current Condition Onset Date June Current Complaints L sided hemiplegia History of Current Condition 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 He received home health and recently graduated from that. He states he wants to focus on his L UE as it has not made the same amount of progress as his L LE. He ambulates with a SPC and lives with his . he has to use the stairs constantly at home. He reports a few falls at home since the stroke. He says the only exercise he does at home currently is stairs. PT-OP-C Subjective Start: 01/19/23 09:03 Freq: Status: Active Protocol: Document 04/06/23 14:36 (Rec: 04/06/23 15:45 [id number]) OP-PT Subjective Patient Comments Patient Comments Pt reports tired, had to be woken up by son for apt. PT-OP-E Functional Tests Start: 01/19/23 09:03 Freq: Status: Active Protocol: Document 01/19/23 13:29 ED (Rec: 01/19/23 13:41 ED [id number]) Functional Tests Five Times Sit to Stand Test Score 49 seconds Timed Up and Go (TUG) Score 12 seconds Comments 13' speed test (4m speed test) Other SPPB Name of Test SPPB Score 07/21 PT-OP-M Strength Start: 01/19/23 09:03 Freq: Status: Active Protocol: Document 01/19/23 13:29 ED (Rec: 01/19/23 13:41 ED [id number]) Knee Strength Knee Manual Muscle Testing Left Flexion (S2) 4- Good- Extension (L3) 4- Good- Comments unable to dissociate hip and knee movements; goes into knee extension AND hip extension PT-OP-Q Treatments Start: 01/19/23 09:03 Freq: Status: Active Protocol: Document 04/06/23 14:36 SW (Rec: 04/06/23 15:45 SW [id number]) Cardio Equipment Recumbent Elliptical (Biodex) Duration (Minutes) 8 Resistance 6 Seat Position 12 Other educated pt on LLE alignment with revolutions, verb/tact cues Therapeutic Exercises Standing Exercises Knee Ext Standing Exercise Name Knee extension w/ hip flexed to isolate knee ext Side left Comments to facilitate mm isolation in LLE DF Standing Exercise Name Step taps, heel strike Equipment Used 2 step Comments to promote dorsiflexion, minimal activation Therapeutic Activity Therapeutic Activity Stairs Name Stairs Comments Ascend/Descend 6 stairs with reciprocal steps Rail and then SPC Gait Training Gait Activity walking Device Used SPC Level of Assistance SBA, gait belt donned Surface carpet/tile Distance/Duration x 100 ft, 60 ft Treatment Focus coordination w/AD, gait mechan , foot clearance, safety, weight shifting Comments focus on gait mechanics while ambulating between exercises in gym PT-OP-T Assessment and Plan Start: 01/19/23 09:03 Freq: Status: Active Protocol: Document 04/06/23 14:36 SW (Rec: 04/06/23 15:45 [id number]) Physical Therapy Assessment Goals 6MWT Impairment 6MWT Impairment IE: 360 feet with SPC Short Term Goal (STG) Pt will improve 6MWT by 160 feet (MCID) to a score > 520 feet. STG Duration 3 weeks Custodial Goal (LTG) Pt will improve 6MWT by 320 feet (MCID) to a score > 680 feet. LTG Duration 6-8 weeks stairs Impairment stair negotiation Prototyper Goal (LTG) Pt will be able to ascend stairs with step through gait pattern and use single railing . LTG Duration 6 weeks -MET muscle isolation Impairment muscle isolation Impairment unable to extend knee separately from hip extension Prototyper Goal (LTG) Pt will be able to perform seated knee extensions using 5 # weight without compensatory hip extension. LTG Duration 6 weeks SPPB Impairment SPPB Impairment IE: 07/21 Custodial Goal (LTG) Pt will improve SPPB score to >7/12. LTG Duration 6-8 weeks HEP Impairment HEP Short Term Goal (STG) Pt will report performing HEP >3 days/week. STG Duration 3 weeks Prototyper Goal (LTG) Pt will report performing HEP >3 days/week. LTG Duration 6-8 weeks Assessment Summary Assessment Session focused on stair training with AD/rail. Pt challenged descending> ascending w/SPC, gait belt donned, CGA, verbal cues required for coordination of assisted device and alignment prior to inititating stairs. Educated pt on safety and continued practice in PT for progress prior to initiating at home. Left foot dorsiflexion continues to be a challenge with clearing foot from floor and stairs, trialed dorsiflexion strengthening exercise today to carryover into gait, minimal activation unable to lift against gravity . Pt required mod amount of rest breaks throughout session d/t fatigue. Physical Therapy Plan Frequency and Duration Frequency of Treatment 2x/Week Duration of treatment (weeks) 10 Plan of Care Start Date 01/19/23 Plan of Care End Date 04/19/23 Therapeutic Interventions Therapeutic Interventions Gait Training,Home Exercise Program,Manual Therapy, Neuromuscular Re-education, Orthotic/Prosthetic Management ,Patient/Caregiver Education, Self-Care/Home Management,Soft Tissue Mobilization,Taping, Therapeutic Activities, Therapeutic Exercises Next Visit Focus/Plan Next Note Type Treatment Note Next Visit Plan Balance challenges, gait/stair training, strengthening
--- NOTE | 2023-04-08 12:52 | PT.OTN ---
Current Diagnoses Cerebral infarction, unspecified (04/08/23) Physical Therapy Treatment Note PT-OP-A Visit Information Start: 01/19/23 09:03 Freq: Status: Active Protocol: Document 04/08/23 12:05 DCW (Rec: 04/08/23 12:52 DCW [id number]) Out-Patient Physical Therapy Visit Information Visit Information Visit Type Progress Note Visit Start Time 12:05 Visit Stop Time 12:45 Total Visit Minutes 40 Visit Number 20 Number of HEAD OF MARKETING ADOMETRY Visits 0 Evaluation Information Evaluation Date 01/19/23 PT-OP-B Current Condition Start: 01/19/23 09:03 Freq: Status: Active Protocol: Document 01/19/23 13:29 ED (Rec: 01/19/23 13:41 ED [id number]) Current Condition History of Current Condition Onset Date June Current Complaints L sided hemiplegia History of Current Condition 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 He received home health and recently graduated from that. He states he wants to focus on his L UE as it has not made the same amount of progress as his L LE. He ambulates with a SPC and lives with his . he has to use the stairs constantly at home. He reports a few falls at home since the stroke. He says the only exercise he does at home currently is stairs. PT-OP-C Subjective Start: 01/19/23 09:03 Freq: Status: Active Protocol: Document 04/08/23 12:05 DCW (Rec: 04/08/23 12:52 DCW [id number]) OP-PT Subjective Patient Comments Patient Comments Pt excited for reassessment today PT-OP-E Functional Tests Start: 01/19/23 09:03 Freq: Status: Active Protocol: Document 04/08/23 12:05 DCW (Rec: 04/08/23 12:46 DCW [id number]) Functional Tests 6 Minute Walk Test Distance 412' Device Used SPC Comments 1.14 ft/sec Five Times Sit to Stand Test Score 23 Comments no UEs Timed Up and Go (TUG) Score 24.9 /c SPC Comments Three-trial average (26.3, 24. 1, 24.4) PT-OP-G Mobility & Gait Start: 01/19/23 09:03 Freq: Status: Active Protocol: Document 04/08/23 12:05 DCW (Rec: 04/08/23 12:46 DCW [id number]) OP Gait Assessment Gait Gait Assistance Required: Contact Guard Assist,1 Person Assist Distance (Feet) 412 Able to Maintain Weight Bearing Status No During Gait Assistive Devices Assistive Device Gait Belt,Straight Cane Gait Deviations General Gait Pattern Antalgic,Decreased Stride Length,Decreased Feet Clearance,Lateral Trunk Lean PT-OP-M Strength Start: 01/19/23 09:03 Freq: Status: Active Protocol: Document 04/08/23 12:05 DCW (Rec: 04/08/23 12:46 DCW [id number]) Hip Strength Hip Manual Muscle Testing Right Flexion (L2) 4+ Good+ Extension (S1) 4+ Good+ Abduction 4+ Good+ Adduction 4+ Good+ External Rotation 5 Normal Internal Rotation 5 Normal Left Flexion (L2) 3 Fair Extension (S1) 4- Good- Abduction 3+ Fair+ Adduction 4 Good External Rotation 3- Fair- Internal Rotation 3- Fair- Knee Strength Knee Manual Muscle Testing Right Flexion (S2) 5 Normal Extension (L3) 5 Normal Left Flexion (S2) 2- Poor- Extension (L3) 4- Good- Comments unable to dissociate hip and knee movements; goes into knee extension AND hip extension PT-OP-Q Treatments Start: 01/19/23 09:03 Freq: Status: Active Protocol: Document 04/06/23 14:36 SW (Rec: 04/06/23 15:45 SW [id number]) Cardio Equipment Recumbent Elliptical (Biodex) Duration (Minutes) 8 Resistance 6 Seat Position 12 Other educated pt on LLE alignment with revolutions, verb/tact cues Therapeutic Exercises Standing Exercises Knee Ext Standing Exercise Name Knee extension w/ hip flexed to isolate knee ext Side left Comments to facilitate mm isolation in LLE DF Standing Exercise Name Step taps, heel strike Equipment Used 2 step Comments to promote dorsiflexion, minimal activation Therapeutic Activity Therapeutic Activity Stairs Name Stairs Comments Ascend/Descend 6 stairs with reciprocal steps Rail and then SPC Gait Training Gait Activity walking Device Used SPC Level of Assistance SBA, gait belt donned Surface carpet/tile Distance/Duration x 100 ft, 60 ft Treatment Focus coordination w/AD, gait mechan , foot clearance, safety, weight shifting Comments focus on gait mechanics while ambulating between exercises in gym PT-OP-T Assessment and Plan Start: 01/19/23 09:03 Freq: Status: Active Protocol: Document 04/08/23 12:05 DCW (Rec: 04/08/23 12:52 DCW [id number]) Physical Therapy Assessment Impairments Impairments Activity Tolerance,Balance, Functional Activities, Functional Mobility,Gait, Strength,Tone,Transfers Goals 6MWT Impairment 6MWT Impairment IE: 360 feet with SPC Short Term Goal (STG) Pt will improve 6MWT by 160 feet (MCID) to a score > 520 feet. STG Duration 05/25/23 Intermediate Goal (LTG) Pt will improve 6MWT by 320 feet (MCID) to a score > 680 feet. LTG Duration 07/07/23 stairs Impairment stair negotiation Intermediate Goal (LTG) Pt will be able to ascend stairs with step through gait pattern and use single railing . LTG Duration MET muscle isolation Impairment muscle isolation Impairment unable to extend knee separately from hip extension Marketing Services Rep Goal (LTG) Pt will be able to perform seated knee extensions using 5 # weight without compensatory hip extension. LTG Duration 07/07/23 SPPB Impairment SPPB Impairment IE: 4/12 Intermediate Goal (LTG) Pt will improve SPPB score to >7/12. LTG Duration 07/07/23 HEP Impairment HEP Short Term Goal (STG) Pt will report performing HEP >3 days/week. STG Duration Met Intermediate Goal (LTG) Pt will report performing HEP >3 days/week. LTG Duration 07/07/23 Assessment Summary Assessment Pt did really well with retesting today. 6MWT improved from 360' to 412', 5xStS time improved from 49 to 23. Pt happy with progress overall. Additional testing performed today, including TUG and MMT. Pt still exhibiting limitations in activity tolerance, LE strength, gait quality, and balance, should continue to benefit from skilled therapeutic intervention. Physical Therapy Plan Frequency and Duration Frequency of Treatment 2x/Week Plan of Care Start Date 04/08/23 Plan of Care End Date 07/07/23 Therapeutic Interventions Therapeutic Interventions Gait Training,Home Exercise Program,Manual Therapy, Neuromuscular Re-education, Orthotic/Prosthetic Management ,Patient/Caregiver Education, Self-Care/Home Management,Soft Tissue Mobilization,Taping, Therapeutic Activities, Therapeutic Exercises Next Visit Focus/Plan Next Note Type Treatment Note Next Visit Plan Balance challenges, gait/stair training, strengthening
--- NOTE | 2023-04-08 12:53 | PT.OPPOC ---
Physical, Occupational & Speech Therapy At [facility] Current Diagnoses Cerebral infarction, unspecified (04/08/23) Visit Care Team Role Provider Type Kristian Kim MD Attending Provider Physician Family Provider Primary Care Provider Referring Provider Specialty: Family Practice Address: [address] [place] [address], [id number] Email: [email or web address] Plan Of Care PT-OP-T Assessment and Plan Start: 01/19/23 09:03 Freq: Status: Active Protocol: Document 04/08/23 12:05 DCW (Rec: 04/08/23 12:52 DCW [id number]) Physical Therapy Assessment Impairments Impairments Activity Tolerance,Balance, Functional Activities, Functional Mobility,Gait, Strength,Tone,Transfers Goals 6MWT Impairment 6MWT Impairment IE: 360 feet with SPC Short Term Goal (STG) Pt will improve 6MWT by 160 feet (MCID) to a score > 520 feet. STG Duration 05/25/23 Fdc Goal (LTG) Pt will improve 6MWT by 320 feet (MCID) to a score > 680 feet. LTG Duration 07/07/23 stairs Impairment stair negotiation Fdc Goal (LTG) Pt will be able to ascend stairs with step through gait pattern and use single railing . LTG Duration MET muscle isolation Impairment muscle isolation Impairment unable to extend knee separately from hip extension Templer Head Goal (LTG) Pt will be able to perform seated knee extensions using 5 # weight without compensatory hip extension. LTG Duration 07/07/23 SPPB Impairment SPPB Impairment IE: 4/12 Fdc Goal (LTG) Pt will improve SPPB score to >7/12. LTG Duration 07/07/23 HEP Impairment HEP Short Term Goal (STG) Pt will report performing HEP >3 days/week. STG Duration Met Fdc Goal (LTG) Pt will report performing HEP >3 days/week. LTG Duration 07/07/23 Assessment Summary Assessment Pt did really well with retesting today. 6MWT improved from 360' to 412', 5xStS time improved from 49 to 23. Pt happy with progress overall. Additional testing performed today, including TUG and MMT. Pt still exhibiting limitations in activity tolerance, LE strength, gait quality, and balance, should continue to benefit from skilled therapeutic intervention. Physical Therapy Plan Frequency and Duration Frequency of Treatment 2x/Week Plan of Care Start Date 04/08/23 Plan of Care End Date 07/07/23 Therapeutic Interventions Therapeutic Interventions Gait Training,Home Exercise Program,Manual Therapy, Neuromuscular Re-education, Orthotic/Prosthetic Management ,Patient/Caregiver Education, Self-Care/Home Management,Soft Tissue Mobilization,Taping, Therapeutic Activities, Therapeutic Exercises Next Visit Focus/Plan Next Note Type Treatment Note Next Visit Plan Balance challenges, gait/stair training, strengthening Plan of Care Dates Plan of Care Start Date 04/08/23 Plan of Care End Date 07/07/23 Electronically Signed by: Jasiel Vila, PT 04/08/23 1468 If you are in agreement with this Plan of Care, please return a signed and dated copy. I have reviewed this Plan of Care and certify that the skilled therapy services above are required to meet the patient?s needs. Physician Signature Date Printed Name and Credentials Clinical Instructor Signature Printed Name and Credentials
--- NOTE | 2023-04-13 12:45 | PT.OTN ---
Current Diagnoses Cerebral infarction, unspecified (04/13/23) Physical Therapy Treatment Note PT-OP-A Visit Information Start: 01/19/23 09:03 Freq: Status: Active Protocol: Document 04/13/23 09:43 (Rec: 04/13/23 10:31 [id number]) Out-Patient Physical Therapy Visit Information Visit Information Visit Type Treatment Note Visit Note Pt late Visit Start Time 09:51 Visit Stop Time 10:29 Total Visit Minutes 38 Visit Number 21 Number of MAIL SUPERINTENDENT Visits 1 PT-OP-B Current Condition Start: 01/19/23 09:03 Freq: Status: Active Protocol: Document 01/19/23 13:29 ED (Rec: 01/19/23 13:41 ED [id number]) Current Condition History of Current Condition Onset Date June Current Complaints L sided hemiplegia History of Current Condition 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 He received home health and recently graduated from that. He states he wants to focus on his L UE as it has not made the same amount of progress as his L LE. He ambulates with a SPC and lives with his . he has to use the stairs constantly at home. He reports a few falls at home since the stroke. He says the only exercise he does at home currently is stairs. PT-OP-C Subjective Start: 01/19/23 09:03 Freq: Status: Active Protocol: Document 04/13/23 09:43 (Rec: 04/13/23 10:31 [id number]) OP-PT Subjective Patient Comments Patient Comments Pt reports he is happy, he stated he improved at his assessment last session. PT-OP-E Functional Tests Start: 01/19/23 09:03 Freq: Status: Active Protocol: Document 04/08/23 12:05 DCW (Rec: 04/08/23 12:46 DCW [id number]) Functional Tests 6 Minute Walk Test Distance 412' Device Used SPC Comments 1.14 ft/sec Five Times Sit to Stand Test Score 23 Comments no UEs Timed Up and Go (TUG) Score 24.9 /c SPC Comments Three-trial average (26.3, 24. 1, 24.4) PT-OP-G Mobility & Gait Start: 01/19/23 09:03 Freq: Status: Active Protocol: Document 04/08/23 12:05 DCW (Rec: 04/08/23 12:46 DCW [id number]) OP Gait Assessment Gait Gait Assistance Required: Contact Guard Assist,1 Person Assist Distance (Feet) 412 Able to Maintain Weight Bearing Status No During Gait Assistive Devices Assistive Device Gait Belt,Straight Cane Gait Deviations General Gait Pattern Antalgic,Decreased Stride Length,Decreased Feet Clearance,Lateral Trunk Lean PT-OP-M Strength Start: 01/19/23 09:03 Freq: Status: Active Protocol: Document 04/08/23 12:05 DCW (Rec: 04/08/23 12:46 DCW [id number]) Hip Strength Hip Manual Muscle Testing Right Flexion (L2) 4+ Good+ Extension (S1) 4+ Good+ Abduction 4+ Good+ Adduction 4+ Good+ External Rotation 5 Normal Internal Rotation 5 Normal Left Flexion (L2) 3 Fair Extension (S1) 4- Good- Abduction 3+ Fair+ Adduction 4 Good External Rotation 3- Fair- Internal Rotation 3- Fair- Knee Strength Knee Manual Muscle Testing Right Flexion (S2) 5 Normal Extension (L3) 5 Normal Left Flexion (S2) 2- Poor- Extension (L3) 4- Good- Comments unable to dissociate hip and knee movements; goes into knee extension AND hip extension PT-OP-Q Treatments Start: 01/19/23 09:03 Freq: Status: Active Protocol: Document 04/13/23 09:43 SW (Rec: 04/13/23 10:31 SW [id number]) Cardio Equipment Recumbent Elliptical (Biodex) Duration (Minutes) 8 Resistance 5 Seat Position 12 Therapeutic Exercises Supine Exercises Knee Flexion Supine Exercise Name Knee flexion Side left Reps/Minutes x10 Comments heavy cues for breathwork Hip IR/ER Supine Exercise Name Hip IR/ER strengthening Side left Resistance [place] eliminated position Reps/Minutes x5 x5 hip flexion Supine Exercise Name Hip flexion Side left Reps/Minutes x10 Comments heavy cues for breathwork Other Exercises Sit to stand Other Exercise Name sit to stand Equipment Used mat table Reps/Minutes 2 x 10 Comments extra time for education on mechanics, weight bering LLE, TKE Therapeutic Activity Therapeutic Activity Stairs Name Stairs Comments Ascend/Descend 6 stairs with reciprocal steps SPC Neuro Re-Education Treatment Balance Activities Static balance Details NBOS Surface Blue Foam, Stable w/EC Comments NBOS w/EC to decrease visual reliance for balance and challenge proprioceptors PT-OP-T Assessment and Plan Start: 01/19/23 09:03 Freq: Status: Active Protocol: Document 04/13/23 09:43 SW (Rec: 04/13/23 10:31 SW [id number]) Physical Therapy Assessment Goals 6MWT Impairment 6MWT Impairment IE: 360 feet with SPC Short Term Goal (STG) Pt will improve 6MWT by 160 feet (MCID) to a score > 520 feet. STG Duration 05/25/23 Chemist Internship Goal (LTG) Pt will improve 6MWT by 320 feet (MCID) to a score > 680 feet. LTG Duration 07/07/23 stairs Impairment stair negotiation Longterm Goal (LTG) Pt will be able to ascend stairs with step through gait pattern and use single railing . LTG Duration MET muscle isolation Impairment muscle isolation Impairment unable to extend knee separately from hip extension Longterm Goal (LTG) Pt will be able to perform seated knee extensions using 5 # weight without compensatory hip extension. LTG Duration 07/07/23 SPPB Impairment SPPB Impairment IE: 4/12 Chemist Internship Goal (LTG) Pt will improve SPPB score to >7/12. LTG Duration 07/07/23 HEP Impairment HEP Short Term Goal (STG) Pt will report performing HEP >3 days/week. STG Duration Met Chemist Internship Goal (LTG) Pt will report performing HEP >3 days/week. LTG Duration 07/07/23 Assessment Summary Assessment Pt demonstrated increased difficulty with coordination w /AD during stair training this session, pt felt discouraged with increased this session vs prior session, discussed with patient continued practice in PT for progress, min verbal cues required for AD placement , and to slow down. Continued LE strengthening exercises this session to progress toward pt goals. Physical Therapy Plan Frequency and Duration Frequency of Treatment 2x/Week Plan of Care Start Date 04/08/23 Plan of Care End Date 07/07/23 Therapeutic Interventions Therapeutic Interventions Gait Training,Home Exercise Program,Manual Therapy, Neuromuscular Re-education, Orthotic/Prosthetic Management ,Patient/Caregiver Education, Self-Care/Home Management,Soft Tissue Mobilization,Taping, Therapeutic Activities, Therapeutic Exercises Next Visit Focus/Plan Next Note Type Treatment Note Next Visit Plan Balance challenges, gait/stair training, strengthening
--- NOTE | 2023-04-15 13:47 | PT.OTN ---
Current Diagnoses Cerebral infarction, unspecified (04/18/23) Physical Therapy Treatment Note PT-OP-A Visit Information Start: 01/19/23 09:03 Freq: Status: Active Protocol: Document 04/18/23 16:50 SP (Rec: 04/15/23 13:49 SP [id number]) Out-Patient Physical Therapy Visit Information Visit Information Visit Type Treatment Note Visit Start Time 13:07 Visit Stop Time 13:47 Total Visit Minutes 40 Visit Number 22 Number of SALESPERSON TERRAZZO TILES Visits 2 Evaluation Information Evaluation Date 01/19/23 PT-OP-B Current Condition Start: 01/19/23 09:03 Freq: Status: Active Protocol: Document 01/19/23 13:29 ED (Rec: 01/19/23 13:41 ED [id number]) Current Condition History of Current Condition Onset Date June Current Complaints L sided hemiplegia History of Current Condition 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 He received home health and recently graduated from that. He states he wants to focus on his L UE as it has not made the same amount of progress as his L LE. He ambulates with a SPC and lives with his . he has to use the stairs constantly at home. He reports a few falls at home since the stroke. He says the only exercise he does at home currently is stairs. PT-OP-C Subjective Start: 01/19/23 09:03 Freq: Status: Active Protocol: Document 04/18/23 16:50 SP (Rec: 04/15/23 13:49 SP [id number]) OP-PT Subjective Patient Comments Patient Comments Pt reports was tired after last tx. PT-OP-E Functional Tests Start: 01/19/23 09:03 Freq: Status: Active Protocol: Document 04/08/23 12:05 DCW (Rec: 04/08/23 12:46 DCW [id number]) Functional Tests 6 Minute Walk Test Distance 412' Device Used SPC Comments 1.14 ft/sec Five Times Sit to Stand Test Score 23 Comments no UEs Timed Up and Go (TUG) Score 24.9 /c SPC Comments Three-trial average (26.3, 24. 1, 24.4) PT-OP-G Mobility & Gait Start: 01/19/23 09:03 Freq: Status: Active Protocol: Document 04/08/23 12:05 DCW (Rec: 04/08/23 12:46 DCW [id number]) OP Gait Assessment Gait Gait Assistance Required: Contact Guard Assist,1 Person Assist Distance (Feet) 412 Able to Maintain Weight Bearing Status No During Gait Assistive Devices Assistive Device Gait Belt,Straight Cane Gait Deviations General Gait Pattern Antalgic,Decreased Stride Length,Decreased Feet Clearance,Lateral Trunk Lean PT-OP-M Strength Start: 01/19/23 09:03 Freq: Status: Active Protocol: Document 04/08/23 12:05 DCW (Rec: 04/08/23 12:46 DCW [id number]) Hip Strength Hip Manual Muscle Testing Right Flexion (L2) 4+ Good+ Extension (S1) 4+ Good+ Abduction 4+ Good+ Adduction 4+ Good+ External Rotation 5 Normal Internal Rotation 5 Normal Left Flexion (L2) 3 Fair Extension (S1) 4- Good- Abduction 3+ Fair+ Adduction 4 Good External Rotation 3- Fair- Internal Rotation 3- Fair- Knee Strength Knee Manual Muscle Testing Right Flexion (S2) 5 Normal Extension (L3) 5 Normal Left Flexion (S2) 2- Poor- Extension (L3) 4- Good- Comments unable to dissociate hip and knee movements; goes into knee extension AND hip extension PT-OP-Q Treatments Start: 01/19/23 09:03 Freq: Status: Active Protocol: Document 04/18/23 16:50 SP (Rec: 04/15/23 13:49 SP [id number]) Cardio Equipment Recumbent Elliptical (Biodex) Duration (Minutes) 6 Resistance 5 fro 3 min> 4 Seat Position in 11 (good full sit back in seat & L post knee stretch) Other LEs only, cues maintain 25-32 RPM Therapeutic Exercises Standing Exercises calf stretch Side left Equipment Used CHRISTIANE at side stairs Reps/Minutes 3x 30 SH Comments good calf stretch felt Other Exercises Side-stepping Other Exercise Name Side-stepping Side bilateral Resistance @ rail Comments cues for hip alignment Therapeutic Activity Therapeutic Activity SPT Name stand step transfers Reps/Minutes x4 Comments cues for step back fully with LLE then reach back/slow descent, allow self WB into LLE equally BLE and decreased risk for tipping chair to R and missing chair. Stairs Name Stairs Reps/Minutes 4 steps x6 Comments Ascend/Descend 6 stairs with reciprocal steps SPC, min support lateral hand over hand to limit lateral hand lean into rail support on for progress use SPC stair mgt, no HR home. Cues for TKE eccentric L knee flexion and upright posturing for more stability. Gait Training Gait Activity wt shift into LLE Description lat, f/b Comments cued TKE but not allow LLE lock out, improved wt shift into LLE, better understanding try maintain soft knee, fair carryover into resisted side stepping. walking Device Used SPC Level of Assistance SBA, gait belt donned Surface carpet/tile Distance/Duration x 100 ft, 60 ft Treatment Focus coordination w/AD, gait mechan , foot clearance, safety, weight shifting Comments focus on gait mechanics while ambulating between exercises in gym PT-OP-T Assessment and Plan Start: 01/19/23 09:03 Freq: Status: Active Protocol: Document 04/18/23 16:50 SP (Rec: 04/15/23 13:49 SP [id number]) Physical Therapy Assessment Goals 6MWT Impairment 6MWT Impairment IE: 360 feet with SPC Short Term Goal (STG) Pt will improve 6MWT by 160 feet (MCID) to a score > 520 feet. STG Duration 05/25/23 Black Top Raker Goal (LTG) Pt will improve 6MWT by 320 feet (MCID) to a score > 680 feet. LTG Duration 07/07/23 stairs Impairment stair negotiation Snf Goal (LTG) Pt will be able to ascend stairs with step through gait pattern and use single railing . LTG Duration MET muscle isolation Impairment muscle isolation Impairment unable to extend knee separately from hip extension Snf Goal (LTG) Pt will be able to perform seated knee extensions using 5 # weight without compensatory hip extension. LTG Duration 07/07/23 SPPB Impairment SPPB Impairment IE: 4/12 Black Top Raker Goal (LTG) Pt will improve SPPB score to >7/12. LTG Duration 07/07/23 HEP Impairment HEP Short Term Goal (STG) Pt will report performing HEP >3 days/week. STG Duration Met Black Top Raker Goal (LTG) Pt will report performing HEP >3 days/week. LTG Duration 07/07/23 Assessment Summary Assessment Pt responded well to added calf stretch, didn't know was so tight. Time spent stand step back fully with cues and slow descend to decrease risk for fall into chair demonstrates risk form, improved with reps. Pt improved LLE soft knee awareness during wt shift into LLE. Physical Therapy Plan Frequency and Duration Frequency of Treatment 2x/Week Plan of Care Start Date 04/08/23 Plan of Care End Date 07/07/23 Therapeutic Interventions Therapeutic Interventions Gait Training,Home Exercise Program,Manual Therapy, Neuromuscular Re-education, Orthotic/Prosthetic Management ,Patient/Caregiver Education, Self-Care/Home Management,Soft Tissue Mobilization,Taping, Therapeutic Activities, Therapeutic Exercises Next Visit Focus/Plan Next Note Type Treatment Note Next Visit Plan Balance challenges, gait/stair training, strengthening
--- NOTE | 2023-04-18 16:47 | PT.OTN ---
Current Diagnoses Cerebral infarction, unspecified (04/18/23) Physical Therapy Treatment Note PT-OP-A Visit Information Start: 01/19/23 09:03 Freq: Status: Active Protocol: Document 04/18/23 16:04 DCW (Rec: 04/18/23 16:47 DCW [id number]) Out-Patient Physical Therapy Visit Information Visit Information Visit Start Time 16:04 PT-OP-B Current Condition Start: 01/19/23 09:03 Freq: Status: Active Protocol: Document 01/19/23 13:29 ED (Rec: 01/19/23 13:41 ED [id number]) Current Condition History of Current Condition Onset Date June Current Complaints L sided hemiplegia History of Current Condition 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 He received home health and recently graduated from that. He states he wants to focus on his L UE as it has not made the same amount of progress as his L LE. He ambulates with a SPC and lives with his . he has to use the stairs constantly at home. He reports a few falls at home since the stroke. He says the only exercise he does at home currently is stairs. PT-OP-C Subjective Start: 01/19/23 09:03 Freq: Status: Active Protocol: Document 04/18/23 16:04 DCW (Rec: 04/18/23 16:47 DCW [id number]) OP-PT Subjective Patient Comments Patient Comments No complaints, I think things are going fairly well. PT-OP-E Functional Tests Start: 01/19/23 09:03 Freq: Status: Active Protocol: Document 04/08/23 12:05 DCW (Rec: 04/08/23 12:46 DCW [id number]) Functional Tests 6 Minute Walk Test Distance 412' Device Used SPC Comments 1.14 ft/sec Five Times Sit to Stand Test Score 23 Comments no UEs Timed Up and Go (TUG) Score 24.9 /c SPC Comments Three-trial average (26.3, 24. 1, 24.4) PT-OP-G Mobility & Gait Start: 01/19/23 09:03 Freq: Status: Active Protocol: Document 04/08/23 12:05 DCW (Rec: 04/08/23 12:46 DCW [id number]) OP Gait Assessment Gait Gait Assistance Required: Contact Guard Assist,1 Person Assist Distance (Feet) 412 Able to Maintain Weight Bearing Status No During Gait Assistive Devices Assistive Device Gait Belt,Straight Cane Gait Deviations General Gait Pattern Antalgic,Decreased Stride Length,Decreased Feet Clearance,Lateral Trunk Lean PT-OP-M Strength Start: 01/19/23 09:03 Freq: Status: Active Protocol: Document 04/08/23 12:05 DCW (Rec: 04/08/23 12:46 DCW [id number]) Hip Strength Hip Manual Muscle Testing Right Flexion (L2) 4+ Good+ Extension (S1) 4+ Good+ Abduction 4+ Good+ Adduction 4+ Good+ External Rotation 5 Normal Internal Rotation 5 Normal Left Flexion (L2) 3 Fair Extension (S1) 4- Good- Abduction 3+ Fair+ Adduction 4 Good External Rotation 3- Fair- Internal Rotation 3- Fair- Knee Strength Knee Manual Muscle Testing Right Flexion (S2) 5 Normal Extension (L3) 5 Normal Left Flexion (S2) 2- Poor- Extension (L3) 4- Good- Comments unable to dissociate hip and knee movements; goes into knee extension AND hip extension PT-OP-Q Treatments Start: 01/19/23 09:03 Freq: Status: Active Protocol: Document 04/18/23 16:04 DCW (Rec: 04/18/23 16:47 DCW [id number]) Cardio Equipment Recumbent Elliptical (Biodex) Duration (Minutes) 8 Resistance 5 Seat Position 12 Therapeutic Exercises Standing Exercises calf stretch Side left Equipment Used CHRISTIANE Reps/Minutes 3x 30 SH Comments good calf stretch felt Therapeutic Activity Therapeutic Activity Stairs Name Stairs Reps/Minutes 4 steps x6 Comments Ascend/Descend 6 stairs with reciprocal steps SPC and rail Floor Transfers Reps/Minutes x3 Comments Standing->Kneel->Prone-> Quadruped->Long Kneel->Half- Kneel->Standing PT-OP-T Assessment and Plan Start: 01/19/23 09:03 Freq: Status: Active Protocol: Document 04/18/23 16:04 DCW (Rec: 04/18/23 16:47 DCW [id number]) Physical Therapy Assessment Goals 6MWT Impairment 6MWT Impairment IE: 360 feet with SPC Short Term Goal (STG) Pt will improve 6MWT by 160 feet (MCID) to a score > 520 feet. STG Duration 05/25/23 Residential Goal (LTG) Pt will improve 6MWT by 320 feet (MCID) to a score > 680 feet. LTG Duration 07/07/23 stairs Impairment stair negotiation Complaints Coordinator Goal (LTG) Pt will be able to ascend stairs with step through gait pattern and use single railing . LTG Duration MET muscle isolation Impairment muscle isolation Impairment unable to extend knee separately from hip extension Complaints Coordinator Goal (LTG) Pt will be able to perform seated knee extensions using 5 # weight without compensatory hip extension. LTG Duration 07/07/23 SPPB Impairment SPPB Impairment IE: 4/12 Residential Goal (LTG) Pt will improve SPPB score to >7/12. LTG Duration 07/07/23 HEP Impairment HEP Short Term Goal (STG) Pt will report performing HEP >3 days/week. STG Duration Met Complaints Coordinator Goal (LTG) Pt will report performing HEP >3 days/week. LTG Duration 07/07/23 Assessment Summary Assessment Pt did very well today, substantial improvement in quality and speed of getting onto and off of the floor during floor transfers. Continued to work on sequencing on stairs, step-to using SPC, step-through using rail. Physical Therapy Plan Frequency and Duration Frequency of Treatment 2x/Week Plan of Care Start Date 04/08/23 Plan of Care End Date 07/07/23 Therapeutic Interventions Therapeutic Interventions Gait Training,Home Exercise Program,Manual Therapy, Neuromuscular Re-education, Orthotic/Prosthetic Management ,Patient/Caregiver Education, Self-Care/Home Management,Soft Tissue Mobilization,Taping, Therapeutic Activities, Therapeutic Exercises Next Visit Focus/Plan Next Note Type Treatment Note Next Visit Plan Balance challenges, gait/stair training, strengthening
--- NOTE | 2023-04-21 17:05 | PT.OTN ---
Current Diagnoses Cerebral infarction, unspecified (04/21/23) Physical Therapy Treatment Note PT-OP-A Visit Information Start: 01/19/23 09:03 Freq: Status: Active Protocol: Document 04/21/23 14:33 (Rec: 04/21/23 15:19 [id number]) Out-Patient Physical Therapy Visit Information Visit Information Visit Type Treatment Note Visit Start Time 13:34 Visit Stop Time 14:15 Total Visit Minutes 41 Visit Number 24 Number of UPTWIST SPINNER Visits 1 PT-OP-B Current Condition Start: 01/19/23 09:03 Freq: Status: Active Protocol: Document 01/19/23 13:29 ED (Rec: 01/19/23 13:41 ED [id number]) Current Condition History of Current Condition Onset Date June Current Complaints L sided hemiplegia History of Current Condition 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 He received home health and recently graduated from that. He states he wants to focus on his L UE as it has not made the same amount of progress as his L LE. He ambulates with a SPC and lives with his . he has to use the stairs constantly at home. He reports a few falls at home since the stroke. He says the only exercise he does at home currently is stairs. PT-OP-C Subjective Start: 01/19/23 09:03 Freq: Status: Active Protocol: Document 04/21/23 14:33 (Rec: 04/21/23 15:19 [id number]) OP-PT Subjective Patient Comments Patient Comments Pt reports no complaints. PT-OP-E Functional Tests Start: 01/19/23 09:03 Freq: Status: Active Protocol: Document 04/08/23 12:05 DCW (Rec: 04/08/23 12:46 DCW [id number]) Functional Tests 6 Minute Walk Test Distance 412' Device Used SPC Comments 1.14 ft/sec Five Times Sit to Stand Test Score 23 Comments no UEs Timed Up and Go (TUG) Score 24.9 /c SPC Comments Three-trial average (26.3, 24. 1, 24.4) PT-OP-G Mobility & Gait Start: 01/19/23 09:03 Freq: Status: Active Protocol: Document 04/08/23 12:05 DCW (Rec: 04/08/23 12:46 DCW [id number]) OP Gait Assessment Gait Gait Assistance Required: Contact Guard Assist,1 Person Assist Distance (Feet) 412 Able to Maintain Weight Bearing Status No During Gait Assistive Devices Assistive Device Gait Belt,Straight Cane Gait Deviations General Gait Pattern Antalgic,Decreased Stride Length,Decreased Feet Clearance,Lateral Trunk Lean PT-OP-M Strength Start: 01/19/23 09:03 Freq: Status: Active Protocol: Document 04/08/23 12:05 DCW (Rec: 04/08/23 12:46 DC [id number]) Hip Strength Hip Manual Muscle Testing Right Flexion (L2) 4+ Good+ Extension (S1) 4+ Good+ Abduction 4+ Good+ Adduction 4+ Good+ External Rotation 5 Normal Internal Rotation 5 Normal Left Flexion (L2) 3 Fair Extension (S1) 4- Good- Abduction 3+ Fair+ Adduction 4 Good External Rotation 3- Fair- Internal Rotation 3- Fair- Knee Strength Knee Manual Muscle Testing Right Flexion (S2) 5 Normal Extension (L3) 5 Normal Left Flexion (S2) 2- Poor- Extension (L3) 4- Good- Comments unable to dissociate hip and knee movements; goes into knee extension AND hip extension PT-OP-Q Treatments Start: 01/19/23 09:03 Freq: Status: Active Protocol: Document 04/21/23 14:33 SW (Rec: 04/21/23 15:19 SW [id number]) Cardio Equipment Recumbent Elliptical (Biodex) Duration (Minutes) 8 Resistance 6 Seat Position 12 Other cues for RPM goal Therapeutic Exercises Sitting Exercises knee extension Sitting Exercise Name knee extension, unable to achieve TKE Side left Reps/Minutes x5 Comments Positioning/Tactile cues to facilitate decreased hip extension Standing Exercises calf stretch Side left Equipment Used CHRISTIANE Reps/Minutes 3x 30 SH Comments good calf stretch felt Knee Ext Standing Exercise Name Standing knee ext Side left Resistance AROM/hold Comments Focus on L knee ext standing strength/stability/ control Step ups Standing Exercise Name Step ups Side bilateral Equipment Used Handrail RUE Reps/Minutes x10 Comments strengthening Other Exercises Side-stepping Other Exercise Name Side-stepping Side bilateral Resistance @ rail Comments cues for hip alignment Gait Training Gait Activity wt shift into LLE Description Fwd Device Used // bars prn Level of Assistance Close SBA Surface stable Distance/Duration x200 ft walking Device Used SPC Level of Assistance SBA, gait belt donned Surface carpet/tile Distance/Duration x 100 ft, 60 ft Treatment Focus coordination w/AD, gait mechan , foot clearance, safety, weight shifting Comments focus on gait mechanics while ambulating between exercises in gym PT-OP-T Assessment and Plan Start: 01/19/23 09:03 Freq: Status: Active Protocol: Document 04/21/23 14:33 SW (Rec: 04/21/23 15:19 SW [id number]) Physical Therapy Assessment Goals 6MWT Impairment 6MWT Impairment IE: 360 feet with SPC Short Term Goal (STG) Pt will improve 6MWT by 160 feet (MCID) to a score > 520 feet. STG Duration 05/25/23 Fpc Goal (LTG) Pt will improve 6MWT by 320 feet (MCID) to a score > 680 feet. LTG Duration 07/07/23 stairs Impairment stair negotiation Capture Manager Goal (LTG) Pt will be able to ascend stairs with step through gait pattern and use single railing . LTG Duration MET muscle isolation Impairment muscle isolation Impairment unable to extend knee separately from hip extension Fpc Goal (LTG) Pt will be able to perform seated knee extensions using 5 # weight without compensatory hip extension. LTG Duration 07/07/23 SPPB Impairment SPPB Impairment IE: 4/12 Fpc Goal (LTG) Pt will improve SPPB score to >7/12. LTG Duration 07/07/23 HEP Impairment HEP Short Term Goal (STG) Pt will report performing HEP >3 days/week. STG Duration Met Fpc Goal (LTG) Pt will report performing HEP >3 days/week. LTG Duration 07/07/23 Assessment Summary Assessment Pt continues to be challenged isolating knee ext from hip ext, tactile/positioning to assist with isolation during LAQ today. Continued gait training with focus on equal step length to help facilitate increased stance time on LLE to accept weight. Initiated standing TKE with LLE to increase strength, and increase stability and control to carryover into pt gait, tactile/verbal cues to avoid locking out into hyperextension. Physical Therapy Plan Frequency and Duration Frequency of Treatment 2x/Week Plan of Care Start Date 04/08/23 Plan of Care End Date 07/07/23 Therapeutic Interventions Therapeutic Interventions Gait Training,Home Exercise Program,Manual Therapy, Neuromuscular Re-education, Orthotic/Prosthetic Management ,Patient/Caregiver Education, Self-Care/Home Management,Soft Tissue Mobilization,Taping, Therapeutic Activities, Therapeutic Exercises Next Visit Focus/Plan Next Note Type Treatment Note Next Visit Plan Balance challenges, gait/stair training, strengthening
--- NOTE | 2023-04-26 11:16 | PT.OTN ---
Current Diagnoses Cerebral infarction, unspecified (04/26/23) Physical Therapy Treatment Note PT-OP-A Visit Information Start: 01/19/23 09:03 Freq: Status: Active Protocol: Document 04/26/23 10:32 DCW (Rec: 04/26/23 11:16 DCW [id number]) Out-Patient Physical Therapy Visit Information Visit Information Visit Type Treatment Note Visit Start Time 10:32 Visit Stop Time 11:15 Total Visit Minutes 43 Visit Number 25 Number of TRUCK CATERER Visits 0 PT-OP-B Current Condition Start: 01/19/23 09:03 Freq: Status: Active Protocol: Document 01/19/23 13:29 ED (Rec: 01/19/23 13:41 ED [id number]) Current Condition History of Current Condition Onset Date June Current Complaints L sided hemiplegia History of Current Condition 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 He received home health and recently graduated from that. He states he wants to focus on his L UE as it has not made the same amount of progress as his L LE. He ambulates with a SPC and lives with his . he has to use the stairs constantly at home. He reports a few falls at home since the stroke. He says the only exercise he does at home currently is stairs. PT-OP-C Subjective Start: 01/19/23 09:03 Freq: Status: Active Protocol: Document 04/26/23 10:32 DCW (Rec: 04/26/23 11:16 DCW [id number]) OP-PT Subjective Patient Comments Patient Comments Pt reports he has been practicing step-through gait pattern on stairs at home. PT-OP-E Functional Tests Start: 01/19/23 09:03 Freq: Status: Active Protocol: Document 04/08/23 12:05 DCW (Rec: 04/08/23 12:46 DCW [id number]) Functional Tests 6 Minute Walk Test Distance 412' Device Used SPC Comments 1.14 ft/sec Five Times Sit to Stand Test Score 23 Comments no UEs Timed Up and Go (TUG) Score 24.9 /c SPC Comments Three-trial average (26.3, 24. 1, 24.4) PT-OP-G Mobility & Gait Start: 01/19/23 09:03 Freq: Status: Active Protocol: Document 04/08/23 12:05 DCW (Rec: 04/08/23 12:46 DC [id number]) OP Gait Assessment Gait Gait Assistance Required: Contact Guard Assist,1 Person Assist Distance (Feet) 412 Able to Maintain Weight Bearing Status No During Gait Assistive Devices Assistive Device Gait Belt,Straight Cane Gait Deviations General Gait Pattern Antalgic,Decreased Stride Length,Decreased Feet Clearance,Lateral Trunk Lean PT-OP-M Strength Start: 01/19/23 09:03 Freq: Status: Active Protocol: Document 04/08/23 12:05 DCW (Rec: 04/08/23 12:46 DC [id number]) Hip Strength Hip Manual Muscle Testing Right Flexion (L2) 4+ Good+ Extension (S1) 4+ Good+ Abduction 4+ Good+ Adduction 4+ Good+ External Rotation 5 Normal Internal Rotation 5 Normal Left Flexion (L2) 3 Fair Extension (S1) 4- Good- Abduction 3+ Fair+ Adduction 4 Good External Rotation 3- Fair- Internal Rotation 3- Fair- Knee Strength Knee Manual Muscle Testing Right Flexion (S2) 5 Normal Extension (L3) 5 Normal Left Flexion (S2) 2- Poor- Extension (L3) 4- Good- Comments unable to dissociate hip and knee movements; goes into knee extension AND hip extension PT-OP-Q Treatments Start: 01/19/23 09:03 Freq: Status: Active Protocol: Document 04/26/23 10:32 DCW (Rec: 04/26/23 11:16 DCW [id number]) Cardio Equipment Recumbent Elliptical (Biodex) Duration (Minutes) 8 Resistance 7 Seat Position 12 Other cues for RPM goal Gym Equipment Shuttle Recovery Unilateral Squats Details L Resistance 50# (Two new) Shuttle Recovery Platform Stable Reps/Time x15 Bilateral Squats Details VCs for limiting knee fall out , not locking knee Resistance 75# (Three new) Shuttle Recovery Platform Stable Reps/Time x15 Therapeutic Exercises Standing Exercises calf stretch Side left Equipment Used CHRISTIANE Reps/Minutes 3x 30 SH Comments good calf stretch felt Other Exercises Side-stepping Other Exercise Name Side-stepping Side bilateral Resistance /c and /s rail Comments cues for hip alignment Therapeutic Activity Therapeutic Activity Floor Transfers Reps/Minutes x2 Comments Standing->Kneel->Quadruped-> Half-Kneel->Standing No padding, CGA Gait Training Gait Activity walking Device Used None Level of Assistance SBA Distance/Duration x150', x30' Neuro Re-Education Treatment Balance Activities Static balance Surface Black foam Tilt board Details Lateral weight shift, DF/PF PT-OP-T Assessment and Plan Start: 01/19/23 09:03 Freq: Status: Active Protocol: Document 04/26/23 10:32 DCW (Rec: 04/26/23 11:16 DCW [id number]) Physical Therapy Assessment Goals 6MWT Impairment 6MWT Impairment IE: 360 feet with SPC Short Term Goal (STG) Pt will improve 6MWT by 160 feet (MCID) to a score > 520 feet. STG Duration 05/25/23 Half-Way Goal (LTG) Pt will improve 6MWT by 320 feet (MCID) to a score > 680 feet. LTG Duration 07/07/23 stairs Impairment stair negotiation Radiotelegraph Operator Goal (LTG) Pt will be able to ascend stairs with step through gait pattern and use single railing . LTG Duration MET muscle isolation Impairment muscle isolation Impairment unable to extend knee separately from hip extension Radiotelegraph Operator Goal (LTG) Pt will be able to perform seated knee extensions using 5 # weight without compensatory hip extension. LTG Duration 07/07/23 SPPB Impairment SPPB Impairment IE: 4/12 Half-Way Goal (LTG) Pt will improve SPPB score to >7/12. LTG Duration 07/07/23 HEP Impairment HEP Short Term Goal (STG) Pt will report performing HEP >3 days/week. STG Duration Met Half-Way Goal (LTG) Pt will report performing HEP >3 days/week. LTG Duration 07/07/23 Assessment Summary Assessment Increased AD-free gait today, pt did well with stability and sequencing, however L LE quickly fatigued, and sequencing began to decline. Pt doing better with balance challenges. Physical Therapy Plan Frequency and Duration Frequency of Treatment 2x/Week Plan of Care Start Date 04/08/23 Plan of Care End Date 07/07/23 Therapeutic Interventions Therapeutic Interventions Gait Training,Home Exercise Program,Manual Therapy, Neuromuscular Re-education, Orthotic/Prosthetic Management ,Patient/Caregiver Education, Self-Care/Home Management,Soft Tissue Mobilization,Taping, Therapeutic Activities, Therapeutic Exercises Next Visit Focus/Plan Next Note Type Treatment Note Next Visit Plan Balance challenges, gait/stair training, strengthening
--- NOTE | 2023-05-02 14:33 | PT.OTN ---
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 He received home health and recently graduated from that. He states he wants to focus on his L UE as it has not made the same amount of progress as his L LE. He ambulates with a SPC and lives with his . he has to use the stairs constantly at home. He reports a few falls at home since the stroke. He says the only exercise he does at home currently is stairs. PT-OP-C Subjective Start: 01/19/23 09:03 Freq: Status: Active Protocol: Document 05/02/23 13:55 SP (Rec: 05/02/23 14:33 SP [id number]) OP-PT Subjective Patient Comments Patient Comments Pt reports report pretty tired last tx, PT-OP-E Functional Tests Start: 01/19/23 09:03 Freq: Status: Active Protocol: Document 04/08/23 12:05 DCW (Rec: 04/08/23 12:46 DCW [id number]) Functional Tests 6 Minute Walk Test Distance 412' Device Used SPC Comments 1.14 ft/sec Five Times Sit to Stand Test Score 23 Comments no UEs Timed Up and Go (TUG) Score 24.9 /c SPC Comments Three-trial average (26.3, 24. 1, 24.4) PT-OP-G Mobility & Gait Start: 01/19/23 09:03 Freq: Status: Active Protocol: Document 04/08/23 12:05 DCW (Rec: 04/08/23 12:46 DCW [id number]) OP Gait Assessment Gait Gait Assistance Required: Contact Guard Assist,1 Person Assist Distance (Feet) 412 Able to Maintain Weight Bearing Status No During Gait Assistive Devices Assistive Device Gait Belt,Straight Cane Gait Deviations General Gait Pattern Antalgic,Decreased Stride Length,Decreased Feet Clearance,Lateral Trunk Lean PT-OP-M Strength Start: 01/19/23 09:03 Freq: Status: Active Protocol: Document 04/08/23 12:05 DCW (Rec: 04/08/23 12:46 DCW [id number]) Hip Strength Hip Manual Muscle Testing Right Flexion (L2) 4+ Good+ Extension (S1) 4+ Good+ Abduction 4+ Good+ Adduction 4+ Good+ External Rotation 5 Normal Internal Rotation 5 Normal Left Flexion (L2) 3 Fair Extension (S1) 4- Good- Abduction 3+ Fair+ Adduction 4 Good External Rotation 3- Fair- Internal Rotation 3- Fair- Knee Strength Knee Manual Muscle Testing Right Flexion (S2) 5 Normal Extension (L3) 5 Normal Left Flexion (S2) 2- Poor- Extension (L3) 4- Good- Comments unable to dissociate hip and knee movements; goes into knee extension AND hip extension PT-OP-Q Treatments Start: 01/19/23 09:03 Freq: Status: Active Protocol: Document 05/02/23 13:55 SP (Rec: 05/02/23 14:33 SP [id number]) Gym Equipment Shuttle Recovery Unilateral Squats Details L VMO quiverying Resistance 50# (Two new) Shuttle Recovery Platform Stable Reps/Time x10 Bilateral Squats Details yellow ball between B knees Resistance 75# (Three new) Shuttle Recovery Platform Stable Reps/Time x15 Therapeutic Exercises Standing Exercises calf stretch Standing Exercise Name TKE during gastroc, then soleus Side left Equipment Used CHRISTIANE Reps/Minutes 3x 30 SH each Comments good calf stretch felt Step ups Standing Exercise Name Step ups Side left Resistance 4 steps Equipment Used Handrail RUE- light Reps/Minutes x10 Comments anterior knee support, max cues TKE not locking into ext: quad/glut fac Therapeutic Activity Therapeutic Activity SPT Name stand step transfers Reps/Minutes x4 Comments cued back up fully on L, square up then sit. Tends to sit on R side, unsafe almost miss L side on chair. Stairs Name Stairs Reps/Minutes 4 steps x3 Comments Ascend/Descend 6 stairs with reciprocal steps R HR- last activity Floor Transfers Reps/Minutes x2 Comments Standing->Kneel->Quadruped-> Half-Kneel->Standing use chair No padding/ floor best, CGA Gait Training Gait Activity walking Device Used cane, None Level of Assistance SBA, CGA Distance/Duration 100 ft through clinic /c cane, 50 ft x2 no cane PT-OP-T Assessment and Plan Start: 01/19/23 09:03 Freq: Status: Active Protocol: Document 05/02/23 13:55 SP (Rec: 05/02/23 14:33 SP [id number]) Physical Therapy Assessment Goals 6MWT Impairment 6MWT Impairment IE: 360 feet with SPC Short Term Goal (STG) Pt will improve 6MWT by 160 feet (MCID) to a score > 520 feet. STG Duration 05/25/23 Alf Goal (LTG) Pt will improve 6MWT by 320 feet (MCID) to a score > 680 feet. LTG Duration 07/07/23 stairs Impairment stair negotiation Alf Goal (LTG) Pt will be able to ascend stairs with step through gait pattern and use single railing . LTG Duration MET muscle isolation Impairment muscle isolation Impairment unable to extend knee separately from hip extension Clinical Medical Assistant Goal (LTG) Pt will be able to perform seated knee extensions using 5 # weight without compensatory hip extension. LTG Duration 07/07/23 SPPB Impairment SPPB Impairment IE: 4/12 Alf Goal (LTG) Pt will improve SPPB score to >7/12. LTG Duration 07/07/23 HEP Impairment HEP Short Term Goal (STG) Pt will report performing HEP >3 days/week. STG Duration Met Clinical Medical Assistant Goal (LTG) Pt will report performing HEP >3 days/week. LTG Duration 07/07/23 Assessment Summary Assessment Pt L quad tired quickly during ther ex, cues for TKE during gait and step ups for safety extension but soft unlocked positioning for facilitate strengthening. Pt good feedback to gastroc and soleus stretch, allowed increased DF foot clearance post. Pt required Min A on/off floor 1 rep, decreased to CGA asc/ descend but required chair support to ascend to stand today due to BLE tired post ther ex. Pt continued to progress gait without UE support, improved COG between BLEs better awareness but cues for TKE on L due to last activity tx and quad tiring, max cues for DF toe clearance. Physical Therapy Plan Frequency and Duration Frequency of Treatment 2x/Week Plan of Care Start Date 04/08/23 Plan of Care End Date 07/07/23 Therapeutic Interventions Therapeutic Interventions Gait Training,Home Exercise Program,Manual Therapy, Neuromuscular Re-education, Orthotic/Prosthetic Management ,Patient/Caregiver Education, Self-Care/Home Management,Soft Tissue Mobilization,Taping, Therapeutic Activities, Therapeutic Exercises Next Visit Focus/Plan Next Note Type Treatment Note Next Visit Plan Balance challenges, gait/stair training, strengthening
--- NOTE | 2023-05-04 17:07 | PT.OTN ---
Current Diagnoses Cerebral infarction, unspecified (05/04/23) Physical Therapy Treatment Note PT-OP-A Visit Information Start: 01/19/23 09:03 Freq: Status: Active Protocol: Document 05/04/23 13:04 SW (Rec: 05/04/23 13:47 SW [id number]) Out-Patient Physical Therapy Visit Information Visit Information Visit Type Treatment Note Visit Start Time 13:04 Visit Stop Time 14:42 Visit Number 27 Number of SEPARATOR TENDER Visits 2 PT-OP-B Current Condition Start: 01/19/23 09:03 Freq: Status: Active Protocol: Document 01/19/23 13:29 ED (Rec: 01/19/23 13:41 ED [id number]) Current Condition History of Current Condition Onset Date June Current Complaints L sided hemiplegia History of Current Condition 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 He received home health and recently graduated from that. He states he wants to focus on his L UE as it has not made the same amount of progress as his L LE. He ambulates with a SPC and lives with his . he has to use the stairs constantly at home. He reports a few falls at home since the stroke. He says the only exercise he does at home currently is stairs. PT-OP-C Subjective Start: 01/19/23 09:03 Freq: Status: Active Protocol: Document 05/04/23 13:04 SW (Rec: 05/04/23 13:47 [id number]) OP-PT Subjective Patient Comments Patient Comments Pt reports trying to do more walking without cane, has ups and downs. PT-OP-E Functional Tests Start: 01/19/23 09:03 Freq: Status: Active Protocol: Document 04/08/23 12:05 DCW (Rec: 04/08/23 12:46 DCW [id number]) Functional Tests 6 Minute Walk Test Distance 412' Device Used SPC Comments 1.14 ft/sec Five Times Sit to Stand Test Score 23 Comments no UEs Timed Up and Go (TUG) Score 24.9 /c SPC Comments Three-trial average (26.3, 24. 1, 24.4) PT-OP-G Mobility & Gait Start: 01/19/23 09:03 Freq: Status: Active Protocol: Document 04/08/23 12:05 DCW (Rec: 04/08/23 12:46 DCW [id number]) OP Gait Assessment Gait Gait Assistance Required: Contact Guard Assist,1 Person Assist Distance (Feet) 412 Able to Maintain Weight Bearing Status No During Gait Assistive Devices Assistive Device Gait Belt,Straight Cane Gait Deviations General Gait Pattern Antalgic,Decreased Stride Length,Decreased Feet Clearance,Lateral Trunk Lean PT-OP-M Strength Start: 01/19/23 09:03 Freq: Status: Active Protocol: Document 04/08/23 12:05 DCW (Rec: 04/08/23 12:46 DCW [id number]) Hip Strength Hip Manual Muscle Testing Right Flexion (L2) 4+ Good+ Extension (S1) 4+ Good+ Abduction 4+ Good+ Adduction 4+ Good+ External Rotation 5 Normal Internal Rotation 5 Normal Left Flexion (L2) 3 Fair Extension (S1) 4- Good- Abduction 3+ Fair+ Adduction 4 Good External Rotation 3- Fair- Internal Rotation 3- Fair- Knee Strength Knee Manual Muscle Testing Right Flexion (S2) 5 Normal Extension (L3) 5 Normal Left Flexion (S2) 2- Poor- Extension (L3) 4- Good- Comments unable to dissociate hip and knee movements; goes into knee extension AND hip extension PT-OP-Q Treatments Start: 01/19/23 09:03 Freq: Status: Active Protocol: Document 05/04/23 13:04 SW (Rec: 05/04/23 13:47 [id number]) Cardio Equipment Recumbent Elliptical ([employer]) Duration (Minutes) 5 Resistance 7 Seat Position 12 Other cues for RPM goal Gym Equipment Shuttle Recovery Unilateral Squats Details L VMO quiverying Resistance 50# (Two new) Shuttle Recovery Platform Stable Reps/Time x10 Bilateral Squats Details yellow ball between B knees Resistance 75# (Three new) Shuttle Recovery Platform Stable Reps/Time x15 Therapeutic Exercises Standing Exercises calf stretch Standing Exercise Name TKE during gastroc, then soleus Side left Equipment Used CHRISTIANE Reps/Minutes 3x 30 SH each Comments good calf stretch felt Other Exercises Side-stepping Other Exercise Name Side-stepping Side bilateral Resistance /c and /s rail Comments cues for hip alignment Gait Training Gait Activity walking Device Used None Level of Assistance SBA, CGA Distance/Duration 100 ft through clinic /c cane, 50 ft x2 no cane Comments vc for mechanics w/patient onset of fatigue Neuro Re-Education Treatment Balance Activities Static balance Surface Black foam PT-OP-T Assessment and Plan Start: 01/19/23 09:03 Freq: Status: Active Protocol: Document 05/04/23 13:04 (Rec: 05/04/23 13:47 [id number]) Physical Therapy Assessment Goals 6MWT Impairment 6MWT Impairment IE: 360 feet with SPC Short Term Goal (STG) Pt will improve 6MWT by 160 feet (MCID) to a score > 520 feet. STG Duration 05/25/23 Cattle Alley Worker Goal (LTG) Pt will improve 6MWT by 320 feet (MCID) to a score > 680 feet. LTG Duration 07/07/23 stairs Impairment stair negotiation Fdc Goal (LTG) Pt will be able to ascend stairs with step through gait pattern and use single railing . LTG Duration MET muscle isolation Impairment muscle isolation Impairment unable to extend knee separately from hip extension Cattle Alley Worker Goal (LTG) Pt will be able to perform seated knee extensions using 5 # weight without compensatory hip extension. LTG Duration 07/07/23 SPPB Impairment SPPB Impairment IE: 4/12 Fdc Goal (LTG) Pt will improve SPPB score to >7/12. LTG Duration 07/07/23 HEP Impairment HEP Short Term Goal (STG) Pt will report performing HEP >3 days/week. STG Duration Met Cattle Alley Worker Goal (LTG) Pt will report performing HEP >3 days/week. LTG Duration 07/07/23 Assessment Summary Assessment Pt improved with carryover of step through mechanics during gait training this session, accepting more weight into LLE , verbal cues required for heel strike in RLE to increase foot clearance. Continued strengthening/stretching toward pt goals. Max cues for TKE while avoiding lock into hyperextension. Physical Therapy Plan Frequency and Duration Frequency of Treatment 2x/Week Plan of Care Start Date 04/08/23 Plan of Care End Date 07/07/23 Therapeutic Interventions Therapeutic Interventions Gait Training,Home Exercise Program,Manual Therapy, Neuromuscular Re-education, Orthotic/Prosthetic Management ,Patient/Caregiver Education, Self-Care/Home Management,Soft Tissue Mobilization,Taping, Therapeutic Activities, Therapeutic Exercises Next Visit Focus/Plan Next Note Type Treatment Note Next Visit Plan Balance challenges, gait/stair training, strengthening
--- NOTE | 2023-05-11 15:15 | PT.OTN ---
Current Diagnoses Cerebral infarction, unspecified (05/11/23) Physical Therapy Treatment Note PT-OP-A Visit Information Start: 01/19/23 09:03 Freq: Status: Active Protocol: Document 05/11/23 12:58 SW (Rec: 05/11/23 13:45 [id number]) Out-Patient Physical Therapy Visit Information Visit Information Visit Type Treatment Note Visit Start Time 13:01 Visit Stop Time 14:41 Visit Number 28 Number of TRIMMER AND REINFORCER Visits 3 PT-OP-B Current Condition Start: 01/19/23 09:03 Freq: Status: Active Protocol: Document 01/19/23 13:29 ED (Rec: 01/19/23 13:41 ED [id number]) Current Condition History of Current Condition Onset Date June Current Complaints L sided hemiplegia History of Current Condition 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 He received home health and recently graduated from that. He states he wants to focus on his L UE as it has not made the same amount of progress as his L LE. He ambulates with a SPC and lives with his . he has to use the stairs constantly at home. He reports a few falls at home since the stroke. He says the only exercise he does at home currently is stairs. PT-OP-C Subjective Start: 01/19/23 09:03 Freq: Status: Active Protocol: Document 05/11/23 12:58 (Rec: 05/11/23 13:45 [id number]) OP-PT Subjective Patient Comments Patient Comments Pt reports feels like walking is getting better. PT-OP-E Functional Tests Start: 01/19/23 09:03 Freq: Status: Active Protocol: Document 04/08/23 12:05 DCW (Rec: 04/08/23 12:46 DCW [id number]) Functional Tests 6 Minute Walk Test Distance 412' Device Used SPC Comments 1.14 ft/sec Five Times Sit to Stand Test Score 23 Comments no UEs Timed Up and Go (TUG) Score 24.9 /c SPC Comments Three-trial average (26.3, 24. 1, 24.4) PT-OP-G Mobility & Gait Start: 01/19/23 09:03 Freq: Status: Active Protocol: Document 04/08/23 12:05 DCW (Rec: 04/08/23 12:46 DCW [id number]) OP Gait Assessment Gait Gait Assistance Required: Contact Guard Assist,1 Person Assist Distance (Feet) 412 Able to Maintain Weight Bearing Status No During Gait Assistive Devices Assistive Device Gait Belt,Straight Cane Gait Deviations General Gait Pattern Antalgic,Decreased Stride Length,Decreased Feet Clearance,Lateral Trunk Lean PT-OP-M Strength Start: 01/19/23 09:03 Freq: Status: Active Protocol: Document 04/08/23 12:05 DCW (Rec: 04/08/23 12:46 [facility] [id number]) Hip Strength Hip Manual Muscle Testing Right Flexion (L2) 4+ Good+ Extension (S1) 4+ Good+ Abduction 4+ Good+ Adduction 4+ Good+ External Rotation 5 Normal Internal Rotation 5 Normal Left Flexion (L2) 3 Fair Extension (S1) 4- Good- Abduction 3+ Fair+ Adduction 4 Good External Rotation 3- Fair- Internal Rotation 3- Fair- Knee Strength Knee Manual Muscle Testing Right Flexion (S2) 5 Normal Extension (L3) 5 Normal Left Flexion (S2) 2- Poor- Extension (L3) 4- Good- Comments unable to dissociate hip and knee movements; goes into knee extension AND hip extension PT-OP-Q Treatments Start: 01/19/23 09:03 Freq: Status: Active Protocol: Document 05/11/23 12:58 (Rec: 05/11/23 13:45 [id number]) Cardio Equipment Recumbent Elliptical (Biodex) Duration (Minutes) 8 Resistance 7 Seat Position 12 Other cues for RPM goal Gym Equipment Shuttle Recovery Unilateral Squats Resistance 50# (Two new) Shuttle Recovery Platform Stable Reps/Time x10 Bilateral Squats Details yellow ball between B knees Resistance 75# (Three new) Shuttle Recovery Platform Stable Reps/Time x15 Therapeutic Activity Therapeutic Activity Floor Transfers Reps/Minutes x2 Comments Standing->Kneel->Quadruped-> Half-Kneel->Standing use chair No padding/ floor best, CGA Gait Training Gait Activity walking Device Used None Level of Assistance SBA, CGA Distance/Duration 100 ft through clinic /c cane, 50 ft x2 no cane Comments vc for mechanics w/patient onset of fatigue Neuro Re-Education Treatment Balance Activities Tilt board Details Lateral weight shift, DF/PF PT-OP-T Assessment and Plan Start: 01/19/23 09:03 Freq: Status: Active Protocol: Document 05/11/23 12:58 (Rec: 05/11/23 13:45 [id number]) Physical Therapy Assessment Goals 6MWT Impairment 6MWT Impairment IE: 360 feet with SPC Short Term Goal (STG) Pt will improve 6MWT by 160 feet (MCID) to a score > 520 feet. STG Duration 05/25/23 Long-Term Goal (LTG) Pt will improve 6MWT by 320 feet (MCID) to a score > 680 feet. LTG Duration 07/07/23 stairs Impairment stair negotiation [employer] Aircraft Mechanic Goal (LTG) Pt will be able to ascend stairs with step through gait pattern and use single railing . LTG Duration MET muscle isolation Impairment muscle isolation Impairment unable to extend knee separately from hip extension [employer] Aircraft Mechanic Goal (LTG) Pt will be able to perform seated knee extensions using 5 # weight without compensatory hip extension. LTG Duration 07/07/23 SPPB Impairment SPPB Impairment IE: 4/12 Long-Term Goal (LTG) Pt will improve SPPB score to >7/12. LTG Duration 07/07/23 HEP Impairment HEP Short Term Goal (STG) Pt will report performing HEP >3 days/week. STG Duration Met Long-Term Goal (LTG) Pt will report performing HEP >3 days/week. LTG Duration 07/07/23 Assessment Summary Assessment Continued floor transfer this session, transfered with assist of chair, difficulty sequencing the first attempt, improved with second attempt, minimal cues required. Worked on gait training this session in // bars w/use of 1 HR prn, pt required verbal cues for R foot clearance/heel strike, and accepting weight into LLE. Continued work on balance and weight shifting with use of tilt board, significant improvement with verbal cues and pt bringing LLE into TKE this session. Physical Therapy Plan Frequency and Duration Frequency of Treatment 2x/Week Plan of Care Start Date 04/08/23 Plan of Care End Date 07/07/23 Therapeutic Interventions Therapeutic Interventions Gait Training,Home Exercise Program,Manual Therapy, Neuromuscular Re-education, Orthotic/Prosthetic Management ,Patient/Caregiver Education, Self-Care/Home Management,Soft Tissue Mobilization,Taping, Therapeutic Activities, Therapeutic Exercises Next Visit Focus/Plan Next Note Type Treatment Note Next Visit Plan Balance challenges, gait/stair training, strengthening
--- NOTE | 2023-05-13 12:50 | PT.OTN ---
Current Diagnoses Cerebral infarction, unspecified (05/13/23) Physical Therapy Treatment Note PT-OP-A Visit Information Start: 01/19/23 09:03 Freq: Status: Active Protocol: Document 05/13/23 12:05 DCW (Rec: 05/13/23 12:50 DCW [id number]) Out-Patient Physical Therapy Visit Information Visit Information Visit Type Treatment Note Visit Start Time 12:05 Visit Stop Time 12:45 Visit Number 29 Number of CHEMISTRY ASSOCIATE Visits 0 PT-OP-B Current Condition Start: 01/19/23 09:03 Freq: Status: Active Protocol: Document 01/19/23 13:29 ED (Rec: 01/19/23 13:41 ED [id number]) Current Condition History of Current Condition Onset Date June Current Complaints L sided hemiplegia History of Current Condition 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 He received home health and recently graduated from that. He states he wants to focus on his L UE as it has not made the same amount of progress as his L LE. He ambulates with a SPC and lives with his . he has to use the stairs constantly at home. He reports a few falls at home since the stroke. He says the only exercise he does at home currently is stairs. PT-OP-C Subjective Start: 01/19/23 09:03 Freq: Status: Active Protocol: Document 05/13/23 12:05 DCW (Rec: 05/13/23 12:50 DCW [id number]) OP-PT Subjective Patient Comments Patient Comments I'm feeling a little clunky today, and I don't know why. I just feel low energy. PT-OP-E Functional Tests Start: 01/19/23 09:03 Freq: Status: Active Protocol: Document 04/08/23 12:05 DCW (Rec: 04/08/23 12:46 DCW [id number]) Functional Tests 6 Minute Walk Test Distance 412' Device Used SPC Comments 1.14 ft/sec Five Times Sit to Stand Test Score 23 Comments no UEs Timed Up and Go (TUG) Score 24.9 /c SPC Comments Three-trial average (26.3, 24. 1, 24.4) PT-OP-G Mobility & Gait Start: 01/19/23 09:03 Freq: Status: Active Protocol: Document 04/08/23 12:05 DCW (Rec: 04/08/23 12:46 DCW [id number]) OP Gait Assessment Gait Gait Assistance Required: Contact Guard Assist,1 Person Assist Distance (Feet) 412 Able to Maintain Weight Bearing Status No During Gait Assistive Devices Assistive Device Gait Belt,Straight Cane Gait Deviations General Gait Pattern Antalgic,Decreased Stride Length,Decreased Feet Clearance,Lateral Trunk Lean PT-OP-M Strength Start: 01/19/23 09:03 Freq: Status: Active Protocol: Document 04/08/23 12:05 DCW (Rec: 04/08/23 12:46 DCW [id number]) Hip Strength Hip Manual Muscle Testing Right Flexion (L2) 4+ Good+ Extension (S1) 4+ Good+ Abduction 4+ Good+ Adduction 4+ Good+ External Rotation 5 Normal Internal Rotation 5 Normal Left Flexion (L2) 3 Fair Extension (S1) 4- Good- Abduction 3+ Fair+ Adduction 4 Good External Rotation 3- Fair- Internal Rotation 3- Fair- Knee Strength Knee Manual Muscle Testing Right Flexion (S2) 5 Normal Extension (L3) 5 Normal Left Flexion (S2) 2- Poor- Extension (L3) 4- Good- Comments unable to dissociate hip and knee movements; goes into knee extension AND hip extension PT-OP-Q Treatments Start: 01/19/23 09:03 Freq: Status: Active Protocol: Document 05/13/23 12:05 DCW (Rec: 05/13/23 12:50 DCW [id number]) Cardio Equipment Recumbent Elliptical (Biodex) Duration (Minutes) 6 Resistance 6 Seat Position 12 Other cues for RPM goal Gym Equipment Shuttle Recovery Unilateral Squats Resistance 50# (Two new) Shuttle Recovery Platform Stable Reps/Time x10 Bilateral Squats Details yellow ball between B knees Resistance 75# (Three new) Shuttle Recovery Platform Stable Reps/Time x15 Neuro Re-Education Treatment Balance Activities Dynamic Gait Details Uneven blue pad Equipment /c and /s SPC Static balance Details EO/EC, X1 Surface Black foam PT-OP-T Assessment and Plan Start: 01/19/23 09:03 Freq: Status: Active Protocol: Document 05/13/23 12:05 DCW (Rec: 05/13/23 12:50 DCW [id number]) Physical Therapy Assessment Goals 6MWT Impairment 6MWT Impairment IE: 360 feet with SPC Short Term Goal (STG) Pt will improve 6MWT by 160 feet (MCID) to a score > 520 feet. STG Duration 05/25/23 Residential Goal (LTG) Pt will improve 6MWT by 320 feet (MCID) to a score > 680 feet. LTG Duration 07/07/23 stairs Impairment stair negotiation Residential Goal (LTG) Pt will be able to ascend stairs with step through gait pattern and use single railing . LTG Duration MET muscle isolation Impairment muscle isolation Impairment unable to extend knee separately from hip extension Residential Goal (LTG) Pt will be able to perform seated knee extensions using 5 # weight without compensatory hip extension. LTG Duration 07/07/23 SPPB Impairment SPPB Impairment IE: 412 [employer] Driver Goal (LTG) Pt will improve SPPB score to >7/12. LTG Duration 07/07/23 HEP Impairment HEP Short Term Goal (STG) Pt will report performing HEP >3 days/week. STG Duration Met Residential Goal (LTG) Pt will report performing HEP >3 days/week. LTG Duration 07/07/23 Assessment Summary Assessment Pt got very good challenge ambulating over uneven padded surface. Struggled significantly with addition of head turns/X1 exercises during foam stance. Physical Therapy Plan Frequency and Duration Frequency of Treatment 2x/Week Plan of Care Start Date 04/08/23 Plan of Care End Date 07/07/23 Therapeutic Interventions Therapeutic Interventions Gait Training,Home Exercise Program,Manual Therapy, Neuromuscular Re-education, Orthotic/Prosthetic Management ,Patient/Caregiver Education, Self-Care/Home Management,Soft Tissue Mobilization,Taping, Therapeutic Activities, Therapeutic Exercises Next Visit Focus/Plan Next Note Type Treatment Note Next Visit Plan Balance challenges, gait/stair training, strengthening
--- NOTE | 2023-05-18 12:31 | PT.OTN ---
Current Diagnoses Cerebral infarction, unspecified (05/18/23) Physical Therapy Treatment Note PT-OP-A Visit Information Start: 01/19/23 09:03 Freq: Status: Active Protocol: Document 05/18/23 12:01 (Rec: 05/18/23 12:31 [id number]) Out-Patient Physical Therapy Visit Information Visit Information Visit Type Treatment Note Visit Start Time 11:17 Visit Stop Time 12:57 Visit Number 30 Number of OUTPATIENT PROGRAM COORDINATOR Visits 1 PT-OP-B Current Condition Start: 01/19/23 09:03 Freq: Status: Active Protocol: Document 01/19/23 13:29 ED (Rec: 01/19/23 13:41 ED [id number]) Current Condition History of Current Condition Onset Date June Current Complaints L sided hemiplegia History of Current Condition 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 He received home health and recently graduated from that. He states he wants to focus on his L UE as it has not made the same amount of progress as his L LE. He ambulates with a SPC and lives with his . he has to use the stairs constantly at home. He reports a few falls at home since the stroke. He says the only exercise he does at home currently is stairs. PT-OP-C Subjective Start: 01/19/23 09:03 Freq: Status: Active Protocol: Document 05/18/23 12:01 (Rec: 05/18/23 12:31 [id number]) OP-PT Subjective Patient Comments Patient Comments Pt reports pn standing up from sofa this morning in R hip, feels ok lying down. PT-OP-E Functional Tests Start: 01/19/23 09:03 Freq: Status: Active Protocol: Document 04/08/23 12:05 DCW (Rec: 04/08/23 12:46 DCW [id number]) Functional Tests 6 Minute Walk Test Distance 412' Device Used SPC Comments 1.14 ft/sec Five Times Sit to Stand Test Score 23 Comments no UEs Timed Up and Go (TUG) Score 24.9 /c SPC Comments Three-trial average (26.3, 24. 1, 24.4) PT-OP-G Mobility & Gait Start: 01/19/23 09:03 Freq: Status: Active Protocol: Document 04/08/23 12:05 DCW (Rec: 04/08/23 12:46 DCW [id number]) OP Gait Assessment Gait Gait Assistance Required: Contact Guard Assist,1 Person Assist Distance (Feet) 412 Able to Maintain Weight Bearing Status No During Gait Assistive Devices Assistive Device Gait Belt,Straight Cane Gait Deviations General Gait Pattern Antalgic,Decreased Stride Length,Decreased Feet Clearance,Lateral Trunk Lean PT-OP-M Strength Start: 01/19/23 09:03 Freq: Status: Active Protocol: Document 04/08/23 12:05 DCW (Rec: 04/08/23 12:46 DC [id number]) Hip Strength Hip Manual Muscle Testing Right Flexion (L2) 4+ Good+ Extension (S1) 4+ Good+ Abduction 4+ Good+ Adduction 4+ Good+ External Rotation 5 Normal Internal Rotation 5 Normal Left Flexion (L2) 3 Fair Extension (S1) 4- Good- Abduction 3+ Fair+ Adduction 4 Good External Rotation 3- Fair- Internal Rotation 3- Fair- Knee Strength Knee Manual Muscle Testing Right Flexion (S2) 5 Normal Extension (L3) 5 Normal Left Flexion (S2) 2- Poor- Extension (L3) 4- Good- Comments unable to dissociate hip and knee movements; goes into knee extension AND hip extension PT-OP-Q Treatments Start: 01/19/23 09:03 Freq: Status: Active Protocol: Document 05/18/23 12:01 (Rec: 05/18/23 12:31 [id number]) Cardio Equipment Recumbent Elliptical (Biodex) Duration (Minutes) 6 Resistance 6 Seat Position 12 Other cues for RPM goal Therapeutic Exercises Other Exercises Sit to stand Other Exercise Name sit to stand Equipment Used chair w/foam Reps/Minutes x5 Comments mechanics to help decrease load into R hip, equal weight bearing BLE Gait Training Gait Activity walking Device Used None Level of Assistance SBA, CGA Surface level Treatment Focus mechanics, weight shifting, foot clearance Comments min verbal cues for mechanics and foot clearance, improved with distance/ corrections Manual Therapy Treatment Manual Techniques Stretching Type LLE Body Location Hip/knee/ankle PNF Type D1, D2 Body Location LLE Comments strengthening LLE Neuro Re-Education Treatment Balance Activities Static balance Details EO/EC, X1, weight shifts Surface Black foam Comments mod cues for challenge to TKE w/out hyperextension PT-OP-T Assessment and Plan Start: 01/19/23 09:03 Freq: Status: Active Protocol: Document 05/18/23 12:01 (Rec: 05/18/23 12:31 [id number]) Physical Therapy Assessment Goals 6MWT Impairment 6MWT Impairment IE: 360 feet with SPC Short Term Goal (STG) Pt will improve 6MWT by 160 feet (MCID) to a score > 520 feet. STG Duration 05/25/23 Load Planner Goal (LTG) Pt will improve 6MWT by 320 feet (MCID) to a score > 680 feet. LTG Duration 07/07/23 stairs Impairment stair negotiation Load Planner Goal (LTG) Pt will be able to ascend stairs with step through gait pattern and use single railing . LTG Duration MET muscle isolation Impairment muscle isolation Impairment unable to extend knee separately from hip extension Load Planner Goal (LTG) Pt will be able to perform seated knee extensions using 5 # weight without compensatory hip extension. LTG Duration 07/07/23 SPPB Impairment SPPB Impairment IE: 4/12 Load Planner Goal (LTG) Pt will improve SPPB score to >7/12. LTG Duration 07/07/23 HEP Impairment HEP Short Term Goal (STG) Pt will report performing HEP >3 days/week. STG Duration Met Intermediate Goal (LTG) Pt will report performing HEP >3 days/week. LTG Duration 07/07/23 Assessment Summary Assessment Pt reports discomfort in R hip from earlier in the morning, noticed it getting up from Sofa. Started session with manual stretching/ strengthening d/t pt discomfort. Reviewed STS mechanics with pt to assist with pn in R hip, mod vc for LE alignment and mechanics ascending, improved with repetition/cues, last STS pt reported greater ease with no pain Physical Therapy Plan Frequency and Duration Frequency of Treatment 2x/Week Plan of Care Start Date 04/08/23 Plan of Care End Date 07/07/23 Therapeutic Interventions Therapeutic Interventions Gait Training,Home Exercise Program,Manual Therapy, Neuromuscular Re-education, Orthotic/Prosthetic Management ,Patient/Caregiver Education, Self-Care/Home Management,Soft Tissue Mobilization,Taping, Therapeutic Activities, Therapeutic Exercises Next Visit Focus/Plan Next Note Type Treatment Note Next Visit Plan Balance challenges, gait/stair training, strengthening
--- NOTE | 2023-05-20 13:03 | PT.OTN ---
Current Diagnoses Cerebral infarction, unspecified (05/20/23) Physical Therapy Treatment Note PT-OP-A Visit Information Start: 01/19/23 09:03 Freq: Status: Active Protocol: Document 05/20/23 12:15 SP (Rec: 05/20/23 13:06 SP [id number]) Out-Patient Physical Therapy Visit Information Visit Information Visit Type Treatment Note Visit Start Time 12:15 Visit Stop Time 13:03 Visit Number 31 Number of PARA MACHINE OPERATOR Visits 2 Evaluation Information Evaluation Date 01/19/23 PT-OP-B Current Condition Start: 01/19/23 09:03 Freq: Status: Active Protocol: Document 01/19/23 13:29 ED (Rec: 01/19/23 13:41 ED [id number]) Current Condition History of Current Condition Onset Date June Current Complaints L sided hemiplegia History of Current Condition 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 He received home health and recently graduated from that. He states he wants to focus on his L UE as it has not made the same amount of progress as his L LE. He ambulates with a SPC and lives with his . he has to use the stairs constantly at home. He reports a few falls at home since the stroke. He says the only exercise he does at home currently is stairs. PT-OP-C Subjective Start: 01/19/23 09:03 Freq: Status: Active Protocol: Document 05/20/23 12:15 SP (Rec: 05/20/23 13:06 SP [id number]) OP-PT Subjective Patient Comments Patient Comments Pt utililzes alternate cylindar based walking cane. He reports really tries to work hard during PT to get most out of it, and probably is not doing as much HEP as should. PT-OP-E Functional Tests Start: 01/19/23 09:03 Freq: Status: Active Protocol: Document 04/08/23 12:05 DCW (Rec: 04/08/23 12:46 DCW [id number]) Functional Tests 6 Minute Walk Test Distance 412' Device Used SPC Comments 1.14 ft/sec Five Times Sit to Stand Test Score 23 Comments no UEs Timed Up and Go (TUG) Score 24.9 /c SPC Comments Three-trial average (26.3, 24. 1, 24.4) PT-OP-G Mobility & Gait Start: 01/19/23 09:03 Freq: Status: Active Protocol: Document 04/08/23 12:05 DCW (Rec: 04/08/23 12:46 DCW [id number]) OP Gait Assessment Gait Gait Assistance Required: Contact Guard Assist,1 Person Assist Distance (Feet) 412 Able to Maintain Weight Bearing Status No During Gait Assistive Devices Assistive Device Gait Belt,Straight Cane Gait Deviations General Gait Pattern Antalgic,Decreased Stride Length,Decreased Feet Clearance,Lateral Trunk Lean PT-OP-M Strength Start: 01/19/23 09:03 Freq: Status: Active Protocol: Document 04/08/23 12:05 DCW (Rec: 04/08/23 12:46 DCW [id number]) Hip Strength Hip Manual Muscle Testing Right Flexion (L2) 4+ Good+ Extension (S1) 4+ Good+ Abduction 4+ Good+ Adduction 4+ Good+ External Rotation 5 Normal Internal Rotation 5 Normal Left Flexion (L2) 3 Fair Extension (S1) 4- Good- Abduction 3+ Fair+ Adduction 4 Good External Rotation 3- Fair- Internal Rotation 3- Fair- Knee Strength Knee Manual Muscle Testing Right Flexion (S2) 5 Normal Extension (L3) 5 Normal Left Flexion (S2) 2- Poor- Extension (L3) 4- Good- Comments unable to dissociate hip and knee movements; goes into knee extension AND hip extension PT-OP-Q Treatments Start: 01/19/23 09:03 Freq: Status: Active Protocol: Document 05/20/23 12:15 SP (Rec: 05/20/23 13:06 SP [id number]) Cardio Equipment Recumbent Elliptical (BiodMedityplus) Duration (Minutes) 6 Resistance 6 Seat Position 10- cued equad heel press, equal jonathon Other LEs only, cues for adduction on L, for RPM goal Gym Equipment Shuttle Recovery Unilateral Squats Details L tactile cues lat alignment, heel press asc/desc Resistance 50#>37# 1 navy Shuttle Recovery Platform Stable Reps/Time x10- improved ankle mob Bilateral Squats Details yellow ball between B knees Resistance 75# (Three new) Shuttle Recovery Platform Stable Reps/Time x15 Therapeutic Exercises Standing Exercises L ankle & knee mobility Standing Exercise Name trialed Side left Resistance foot on 16box, R rail side stair trunk stability support Equipment Used therapist supported knee alignment Reps/Minutes 4 reps x10 sec hold Comments post calf stretching, improved knee flexion and ankle DF calf stretch Standing Exercise Name TKE during gastroc, then soleus Side left Equipment Used CHRISTIANE Reps/Minutes 3x 30 SH each Comments good calf stretch felt DF Standing Exercise Name Step taps, heel strike Equipment Used 2 step Comments to promote dorsiflexion, minimal activation Step ups Standing Exercise Name Step ups Side left Resistance 4 steps Equipment Used Handrail RUE- light Reps/Minutes x10 Comments anterior knee support, max cues TKE not locking into ext: quad/glut fac Step taps Standing Exercise Name Step taps with weight shifting Side left Equipment Used 6 step Comments cues for shifting weight in LLE TKE Standing Exercise Name TKE Side left Resistance [place] TB #3 Reps/Minutes 10 sec x10 Comments cued slow control, not into hyperextension and slower eccentric flexion Other Exercises Sit to stand Other Exercise Name sit to stand Equipment Used mesh chair Reps/Minutes 5 x2 Comments cued slow descend last 2, hip hinge Gait Training Gait Activity walking Description f/b Device Used None Level of Assistance SBA, CGA Surface level Distance/Duration //bars, various areas in gym Treatment Focus mechanics, weight shifting, foot clearance Comments min verbal cues for mechanics and L knee flexion, trunk taller wt shift over RLE allow L foot clearance, improved post calf stretch with distance/ corrections. Neuro Re-Education Treatment Balance Activities Static balance Details EC, weight shifts Surface floor stagger stance LLE fwd/ RLE back position Equipment in//bars not needed Comments SBA, contact cues pelvis L/ upper body R/wt shift in to back R LE, improved up to 8, 17 sec, tactile cues for corrections PT-OP-T Assessment and Plan Start: 01/19/23 09:03 Freq: Status: Active Protocol: Document 05/20/23 12:15 SP (Rec: 05/20/23 13:06 SP [id number]) Physical Therapy Assessment Goals 6MWT Impairment 6MWT Impairment IE: 360 feet with SPC Short Term Goal (STG) Pt will improve 6MWT by 160 feet (MCID) to a score > 520 feet. STG Duration 05/25/23 Supervisor Coffee Goal (LTG) Pt will improve 6MWT by 320 feet (MCID) to a score > 680 feet. LTG Duration 07/07/23 stairs Impairment stair negotiation Supervisor Coffee Goal (LTG) Pt will be able to ascend stairs with step through gait pattern and use single railing . LTG Duration MET muscle isolation Impairment muscle isolation Impairment unable to extend knee separately from hip extension Supervisor Coffee Goal (LTG) Pt will be able to perform seated knee extensions using 5 # weight without compensatory hip extension. LTG Duration 07/07/23 SPPB Impairment SPPB Impairment IE: 4/12 Supervisor Coffee Goal (LTG) Pt will improve SPPB score to >7/12. LTG Duration 07/07/23 HEP Impairment HEP Short Term Goal (STG) Pt will report performing HEP >3 days/week. STG Duration Met Mcfp Goal (LTG) Pt will report performing HEP >3 days/week. LTG Duration 07/07/23 Assessment Summary Assessment Pt states R leg tired end tx. Good response to B calf stretch on CHRISTIANE, wants to create same for home. Pt required decrease in resistance with ability to allow increase L ankle DF during SL squat on shuttle recovery today. CUes for awareness for slight knee unlocked, not flexioned nor locked out positioning during step ups/taps to progress stability during gait carryover. Pt improved eyes closed stride stance up to 8 to 17 sec with tactile cues trunk elongation and postural corrections to allow stability without UE support. Physical Therapy Plan Frequency and Duration Frequency of Treatment 2x/Week Plan of Care Start Date 04/08/23 Plan of Care End Date 07/07/23 Therapeutic Interventions Therapeutic Interventions Gait Training,Home Exercise Program,Manual Therapy, Neuromuscular Re-education, Orthotic/Prosthetic Management ,Patient/Caregiver Education, Self-Care/Home Management,Soft Tissue Mobilization,Taping, Therapeutic Activities, Therapeutic Exercises Next Visit Focus/Plan Next Note Type Treatment Note Next Visit Plan Continue EC balance, strengthening mechanics LLE with postural corrections to support energy conservation. POC: Balance challenges, gait/ stair training, strengthening
--- NOTE | 2023-05-25 12:02 | PT.OTN ---
Current Diagnoses Cerebral infarction, unspecified (05/25/23) Physical Therapy Treatment Note PT-OP-A Visit Information Start: 01/19/23 09:03 Freq: Status: Active Protocol: Document 05/25/23 11:15 DCW (Rec: 05/25/23 12:02 DCW [id number]) Out-Patient Physical Therapy Visit Information Visit Information Visit Type Treatment Note Visit Start Time 11:15 Visit Stop Time 12:00 Visit Number 32 Number of MENTAL HEALTH TECH Visits 0 Evaluation Information Evaluation Date 01/19/23 PT-OP-B Current Condition Start: 01/19/23 09:03 Freq: Status: Active Protocol: Document 01/19/23 13:29 ED (Rec: 01/19/23 13:41 ED [id number]) Current Condition History of Current Condition Onset Date June Current Complaints L sided hemiplegia History of Current Condition 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 He received home health and recently graduated from that. He states he wants to focus on his L UE as it has not made the same amount of progress as his L LE. He ambulates with a SPC and lives with his . he has to use the stairs constantly at home. He reports a few falls at home since the stroke. He says the only exercise he does at home currently is stairs. PT-OP-C Subjective Start: 01/19/23 09:03 Freq: Status: Active Protocol: Document 05/25/23 11:15 DCW (Rec: 05/25/23 12:01 DCW [id number]) OP-PT Subjective Patient Comments Patient Comments I feel better today than I have in the past 4-5 days. PT-OP-E Functional Tests Start: 01/19/23 09:03 Freq: Status: Active Protocol: Document 04/08/23 12:05 DCW (Rec: 04/08/23 12:46 DCW [id number]) Functional Tests 6 Minute Walk Test Distance 412' Device Used SPC Comments 1.14 ft/sec Five Times Sit to Stand Test Score 23 Comments no UEs Timed Up and Go (TUG) Score 24.9 /c SPC Comments Three-trial average (26.3, 24. 1, 24.4) PT-OP-G Mobility & Gait Start: 01/19/23 09:03 Freq: Status: Active Protocol: Document 04/08/23 12:05 DCW (Rec: 04/08/23 12:46 DCW [id number]) OP Gait Assessment Gait Gait Assistance Required: Contact Guard Assist,1 Person Assist Distance (Feet) 412 Able to Maintain Weight Bearing Status No During Gait Assistive Devices Assistive Device Gait Belt,Straight Cane Gait Deviations General Gait Pattern Antalgic,Decreased Stride Length,Decreased Feet Clearance,Lateral Trunk Lean PT-OP-M Strength Start: 01/19/23 09:03 Freq: Status: Active Protocol: Document 04/08/23 12:05 DCW (Rec: 04/08/23 12:46 DCW [id number]) Hip Strength Hip Manual Muscle Testing Right Flexion (L2) 4+ Good+ Extension (S1) 4+ Good+ Abduction 4+ Good+ Adduction 4+ Good+ External Rotation 5 Normal Internal Rotation 5 Normal Left Flexion (L2) 3 Fair Extension (S1) 4- Good- Abduction 3+ Fair+ Adduction 4 Good External Rotation 3- Fair- Internal Rotation 3- Fair- Knee Strength Knee Manual Muscle Testing Right Flexion (S2) 5 Normal Extension (L3) 5 Normal Left Flexion (S2) 2- Poor- Extension (L3) 4- Good- Comments unable to dissociate hip and knee movements; goes into knee extension AND hip extension PT-OP-Q Treatments Start: 01/19/23 09:03 Freq: Status: Active Protocol: Document 05/25/23 11:15 DCW (Rec: 05/25/23 12:01 DCW [id number]) Cardio Equipment Recumbent Elliptical (Biodex) Duration (Minutes) 6 Resistance 6 Seat Position 11 Other LEs only, cues for adduction on L Gym Equipment Shuttle Recovery Unilateral Squats Details L tactile cues lat alignment, heel press asc/desc Resistance 37# (One new) Shuttle Recovery Platform Stable Reps/Time x10- improved ankle mob Bilateral Squats Resistance 75# (Three new) Shuttle Recovery Platform Stable Reps/Time x15 Therapeutic Exercises Standing Exercises Step ups Standing Exercise Name Step ups Side left Resistance 4 steps Equipment Used Handrail RUE- light Reps/Minutes x10 Comments anterior knee support, max cues TKE not locking into ext: quad/glut fac Other Exercises Lunge Other Exercise Name Lunge Side left Comments Stacked blue AirEx Side-stepping Other Exercise Name Side-stepping Side bilateral Resistance // bars Comments cues for hip alignment Neuro Re-Education Treatment Balance Activities Tandem Stance Details Tandem Stance Equipment // bars Tilt board Details Lateral weight shift, DF/PF Comments Limited UE support on // bars PT-OP-T Assessment and Plan Start: 01/19/23 09:03 Freq: Status: Active Protocol: Document 05/25/23 11:15 DCW (Rec: 05/25/23 12:01 DCW [id number]) Physical Therapy Assessment Goals 6MWT Impairment 6MWT Impairment IE: 360 feet with SPC Short Term Goal (STG) Pt will improve 6MWT by 160 feet (MCID) to a score > 520 feet. STG Duration 05/25/23 Prison Goal (LTG) Pt will improve 6MWT by 320 feet (MCID) to a score > 680 feet. LTG Duration 07/07/23 stairs Impairment stair negotiation Prison Goal (LTG) Pt will be able to ascend stairs with step through gait pattern and use single railing . LTG Duration MET muscle isolation Impairment muscle isolation Impairment unable to extend knee separately from hip extension Breaker Up Machine Operator Goal (LTG) Pt will be able to perform seated knee extensions using 5 # weight without compensatory hip extension. LTG Duration 07/07/23 SPPB Impairment SPPB Impairment IE: 4/12 Breaker Up Machine Operator Goal (LTG) Pt will improve SPPB score to >7/12. LTG Duration 07/07/23 HEP Impairment HEP Short Term Goal (STG) Pt will report performing HEP >3 days/week. STG Duration Met Prison Goal (LTG) Pt will report performing HEP >3 days/week. LTG Duration 07/07/23 Assessment Summary Assessment Pt showing some good improvement trusting weight bearing thruoogh left leg, improvement with tilt board without UE assist. Physical Therapy Plan Frequency and Duration Frequency of Treatment 2x/Week Plan of Care Start Date 04/08/23 Plan of Care End Date 07/07/23 Therapeutic Interventions Therapeutic Interventions Gait Training,Home Exercise Program,Manual Therapy, Neuromuscular Re-education, Orthotic/Prosthetic Management ,Patient/Caregiver Education, Self-Care/Home Management,Soft Tissue Mobilization,Taping, Therapeutic Activities, Therapeutic Exercises Next Visit Focus/Plan Next Note Type Treatment Note Next Visit Plan Continue EC balance, strengthening mechanics LLE with postural corrections to support energy conservation. POC: Balance challenges, gait/ stair training, strengthening
--- NOTE | 2023-05-27 12:55 | PT.OTN ---
Current Diagnoses Cerebral infarction, unspecified (05/27/23) Physical Therapy Treatment Note PT-OP-A Visit Information Start: 01/19/23 09:03 Freq: Status: Active Protocol: Document 05/27/23 12:18 SP (Rec: 05/27/23 13:00 SP [id number]) Out-Patient Physical Therapy Visit Information Visit Information Visit Type Treatment Note Visit Start Time 12:18 Visit Stop Time 12:55 Visit Number 33 Number of CREDIT AUTHORIZER Visits 1 Evaluation Information Evaluation Date 01/19/23 PT-OP-B Current Condition Start: 01/19/23 09:03 Freq: Status: Active Protocol: Document 01/19/23 13:29 ED (Rec: 01/19/23 13:41 ED [id number]) Current Condition History of Current Condition Onset Date June Current Complaints L sided hemiplegia History of Current Condition 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 He received home health and recently graduated from that. He states he wants to focus on his L UE as it has not made the same amount of progress as his L LE. He ambulates with a SPC and lives with his . he has to use the stairs constantly at home. He reports a few falls at home since the stroke. He says the only exercise he does at home currently is stairs. PT-OP-C Subjective Start: 01/19/23 09:03 Freq: Status: Active Protocol: Document 05/27/23 12:18 SP (Rec: 05/27/23 13:00 SP [id number]) OP-PT Subjective Patient Comments Patient Comments Pt reports was really tired after leg press last tx, almost was unable walk out. But did recovered well, no pain in buttocks onL as did treat prior. PT-OP-E Functional Tests Start: 01/19/23 09:03 Freq: Status: Active Protocol: Document 04/08/23 12:05 DCW (Rec: 04/08/23 12:46 DCW [id number]) Functional Tests 6 Minute Walk Test Distance 412' Device Used SPC Comments 1.14 ft/sec Five Times Sit to Stand Test Score 23 Comments no UEs Timed Up and Go (TUG) Score 24.9 /c SPC Comments Three-trial average (26.3, 24. 1, 24.4) PT-OP-G Mobility & Gait Start: 01/19/23 09:03 Freq: Status: Active Protocol: Document 04/08/23 12:05 DCW (Rec: 04/08/23 12:46 DCW [id number]) OP Gait Assessment Gait Gait Assistance Required: Contact Guard Assist,1 Person Assist Distance (Feet) 412 Able to Maintain Weight Bearing Status No During Gait Assistive Devices Assistive Device Gait Belt,Straight Cane Gait Deviations General Gait Pattern Antalgic,Decreased Stride Length,Decreased Feet Clearance,Lateral Trunk Lean PT-OP-M Strength Start: 01/19/23 09:03 Freq: Status: Active Protocol: Document 04/08/23 12:05 DCW (Rec: 04/08/23 12:46 DCW [id number]) Hip Strength Hip Manual Muscle Testing Right Flexion (L2) 4+ Good+ Extension (S1) 4+ Good+ Abduction 4+ Good+ Adduction 4+ Good+ External Rotation 5 Normal Internal Rotation 5 Normal Left Flexion (L2) 3 Fair Extension (S1) 4- Good- Abduction 3+ Fair+ Adduction 4 Good External Rotation 3- Fair- Internal Rotation 3- Fair- Knee Strength Knee Manual Muscle Testing Right Flexion (S2) 5 Normal Extension (L3) 5 Normal Left Flexion (S2) 2- Poor- Extension (L3) 4- Good- Comments unable to dissociate hip and knee movements; goes into knee extension AND hip extension PT-OP-Q Treatments Start: 01/19/23 09:03 Freq: Status: Active Protocol: Document 05/27/23 12:18 SP (Rec: 05/27/23 13:00 SP [id number]) Cardio Equipment Recumbent Elliptical (BiodLeisureLink) Duration (Minutes) 6 Resistance 6 Seat Position 11 Other LEs only, cues for adduction on L Gym Equipment Shuttle Recovery Unilateral Squats Details L tactile cues lat alignment, heel press asc/desc Resistance 50# (2 navy) Shuttle Recovery Platform Stable Reps/Time x11- improved ankle mob Bilateral Squats Resistance 87# (Three new) Shuttle Recovery Platform Stable Reps/Time x10 Therapeutic Exercises Standing Exercises calf stretch Standing Exercise Name TKE during gastroc, then soleus Side left Equipment Used CHRISTIANE, rail support RUE Reps/Minutes 2x 30 SH each Comments good calf stretch felt Step ups Standing Exercise Name Step ups- concentric and eccentric Side bilateral Resistance 4 steps Equipment Used Handrail RUE- light Reps/Minutes x10 each LE Comments cued scap retraction and TKE during asc/desc stance time Other Exercises Lunge Other Exercise Name Lunge Side bilateral Equipment Used Stacked blue AirEx, Reps/Minutes 6 reps each Comments tactile knee flex stb Sit to stand Other Exercise Name sit to stand Equipment Used mesh chair Reps/Minutes x10 reps Comments cued slow descend last 2, hip hinge Side-stepping Other Exercise Name Side-stepping Side bilateral Resistance // bars Reps/Minutes 15 ft x3 laps Comments cues ft fwd wall, scap retraction, L>R glut& quad for WB into ext PT-OP-T Assessment and Plan Start: 01/19/23 09:03 Freq: Status: Active Protocol: Document 05/27/23 12:18 SP (Rec: 05/27/23 13:00 SP [id number]) Physical Therapy Assessment Goals 6MWT Impairment 6MWT Impairment IE: 360 feet with SPC Short Term Goal (STG) Pt will improve 6MWT by 160 feet (MCID) to a score > 520 feet. STG Duration 05/25/23 Player Development Executive Goal (LTG) Pt will improve 6MWT by 320 feet (MCID) to a score > 680 feet. LTG Duration 07/07/23 stairs Impairment stair negotiation Player Development Executive Goal (LTG) Pt will be able to ascend stairs with step through gait pattern and use single railing . LTG Duration MET muscle isolation Impairment muscle isolation Impairment unable to extend knee separately from hip extension Player Development Executive Goal (LTG) Pt will be able to perform seated knee extensions using 5 # weight without compensatory hip extension. LTG Duration 07/07/23 SPPB Impairment SPPB Impairment IE: 4/12 Player Development Executive Goal (LTG) Pt will improve SPPB score to >7/12. LTG Duration 07/07/23 HEP Impairment HEP Short Term Goal (STG) Pt will report performing HEP >3 days/week. STG Duration Met Player Development Executive Goal (LTG) Pt will report performing HEP >3 days/week. LTG Duration 07/07/23 Assessment Summary Assessment Pt improved WB into LLE during all activities today tactile LLE alignment during step ups and lunges with position corrections to allow increased engagement L quad&glut firing . Physical Therapy Plan Frequency and Duration Frequency of Treatment 2x/Week Plan of Care Start Date 04/08/23 Plan of Care End Date 07/07/23 Therapeutic Interventions Therapeutic Interventions Gait Training,Home Exercise Program,Manual Therapy, Neuromuscular Re-education, Orthotic/Prosthetic Management ,Patient/Caregiver Education, Self-Care/Home Management,Soft Tissue Mobilization,Taping, Therapeutic Activities, Therapeutic Exercises Next Visit Focus/Plan Next Note Type Treatment Note Next Visit Plan Continue EC balance, strengthening mechanics LLE with postural corrections to support energy conservation. POC: Balance challenges, gait/ stair training, strengthening
--- NOTE | 2023-06-01 14:15 | PT.OTN ---
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 He received home health and recently graduated from that. He states he wants to focus on his L UE as it has not made the same amount of progress as his L LE. He ambulates with a SPC and lives with his . he has to use the stairs constantly at home. He reports a few falls at home since the stroke. He says the only exercise he does at home currently is stairs. PT-OP-C Subjective Start: 01/19/23 09:03 Freq: Status: Active Protocol: Document 06/01/23 10:01 AB (Rec: 06/01/23 14:15 AB [id number]) OP-PT Subjective Patient Comments Patient Comments Patient reports he feels he is ahead of the game witht the stairs, reports he side steps down from bedroom down when rail is on left., and side steps up with rail on right. PT-OP-E Functional Tests Start: 01/19/23 09:03 Freq: Status: Active Protocol: Document 04/08/23 12:05 DCW (Rec: 04/08/23 12:46 DCW [id number]) Functional Tests 6 Minute Walk Test Distance 412' Device Used SPC Comments 1.14 ft/sec Five Times Sit to Stand Test Score 23 Comments no UEs Timed Up and Go (TUG) Score 24.9 /c SPC Comments Three-trial average (26.3, 24. 1, 24.4) PT-OP-G Mobility & Gait Start: 01/19/23 09:03 Freq: Status: Active Protocol: Document 04/08/23 12:05 DCW (Rec: 04/08/23 12:46 DCW [id number]) OP Gait Assessment Gait Gait Assistance Required: Contact Guard Assist,1 Person Assist Distance (Feet) 412 Able to Maintain Weight Bearing Status No During Gait Assistive Devices Assistive Device Gait Belt,Straight Cane Gait Deviations General Gait Pattern Antalgic,Decreased Stride Length,Decreased Feet Clearance,Lateral Trunk Lean PT-OP-M Strength Start: 01/19/23 09:03 Freq: Status: Active Protocol: Document 04/08/23 12:05 DCW (Rec: 04/08/23 12:46 DCW [id number]) Hip Strength Hip Manual Muscle Testing Right Flexion (L2) 4+ Good+ Extension (S1) 4+ Good+ Abduction 4+ Good+ Adduction 4+ Good+ External Rotation 5 Normal Internal Rotation 5 Normal Left Flexion (L2) 3 Fair Extension (S1) 4- Good- Abduction 3+ Fair+ Adduction 4 Good External Rotation 3- Fair- Internal Rotation 3- Fair- Knee Strength Knee Manual Muscle Testing Right Flexion (S2) 5 Normal Extension (L3) 5 Normal Left Flexion (S2) 2- Poor- Extension (L3) 4- Good- Comments unable to dissociate hip and knee movements; goes into knee extension AND hip extension PT-OP-Q Treatments Start: 01/19/23 09:03 Freq: Status: Active Protocol: Document 06/01/23 10:01 AB (Rec: 06/01/23 14:15 AB [id number]) Therapeutic Exercises Sitting Exercises stagger stance sit to stand Right LE fwd Sitting Exercise Name with UE use Reps/Minutes 2 X10 Comments Verbal cues for LE position X10 pre and post calf stretch ankle PF/DF Sitting Exercise Name AROM DF Side bilateral Reps/Minutes 2X10 Comments post calf stretch, bilateral for carryover right to left Standing Exercises calf stretch Standing Exercise Name TKE during gastroc, then soleus Side bilateral Equipment Used CHRISTIANE, rail support RUE Reps/Minutes 2x 60 SH each Comments good calf stretch felt Knee Ext Equipment Used x Gait Training Gait Activity ambulation with 3rd foot cane Level of Assistance CGA Surface floor Distance/Duration 52 feet X 2 65 feet X 2 Comments Verbal cues to increase stance phase time left LE and for posture. Verbal cues to stop when left feet are scuffing and lateral weight shift for a minute then proceed Neuro Re-Education Treatment Balance Activities stagger stance Reps/Duration X10 each LE Comments with weight shifting and tapping to facilitate left quad when left LE is positioned fwd Tandem Stance Details Tandem Stance Equipment // bars Comments CGA with eyes open and eyes closed Tilt board Details Lateral weight shift, DF/PF Comments Limited UE support on // bars Other Activities glute med isometric Details manual resistance very light left LE Reps/Duration X1 one minute Comments seated hip abduction PT-OP-T Assessment and Plan Start: 01/19/23 09:03 Freq: Status: Active Protocol: Document 06/01/23 10:01 AB (Rec: 06/01/23 14:15 AB [id number]) Physical Therapy Assessment Goals 6MWT Impairment 6MWT Impairment IE: 360 feet with SPC Short Term Goal (STG) Pt will improve 6MWT by 160 feet (MCID) to a score > 520 feet. STG Duration 05/25/23 Usp Goal (LTG) Pt will improve 6MWT by 320 feet (MCID) to a score > 680 feet. LTG Duration 07/07/23 stairs Impairment stair negotiation Usp Goal (LTG) Pt will be able to ascend stairs with step through gait pattern and use single railing . LTG Duration MET muscle isolation Impairment muscle isolation Impairment unable to extend knee separately from hip extension Usp Goal (LTG) Pt will be able to perform seated knee extensions using 5 # weight without compensatory hip extension. LTG Duration 07/07/23 SPPB Impairment SPPB Impairment IE: 4/12 Airplane Rigger Goal (LTG) Pt will improve SPPB score to >7/12. LTG Duration 07/07/23 HEP Impairment HEP Short Term Goal (STG) Pt will report performing HEP >3 days/week. STG Duration Met Usp Goal (LTG) Pt will report performing HEP >3 days/week. LTG Duration 07/07/23 Physical Therapy Plan Frequency and Duration Frequency of Treatment 2x/Week Plan of Care Start Date 04/08/23 Plan of Care End Date 07/07/23 Next Visit Focus/Plan Next Note Type Treatment Note Next Visit Plan Continue EC balance, strengthening mechanics LLE with postural corrections to support energy conservation. POC: Balance challenges, gait/ stair training, strengthening, calf stretch prior to stagger stance sit to stand next session
--- NOTE | 2023-06-08 16:48 | PT.OTN ---
Current Diagnoses Cerebral infarction, unspecified (06/08/23) Physical Therapy Treatment Note PT-OP-A Visit Information Start: 01/19/23 09:03 Freq: Status: Active Protocol: Document 06/08/23 13:50 SW (Rec: 06/08/23 14:34 SW [id number]) Out-Patient Physical Therapy Visit Information Visit Information Visit Type Treatment Note PT-OP-B Current Condition Start: 01/19/23 09:03 Freq: Status: Active Protocol: Document 01/19/23 13:29 ED (Rec: 01/19/23 13:41 ED [id number]) Current Condition History of Current Condition Onset Date June Current Complaints L sided hemiplegia History of Current Condition 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 He received home health and recently graduated from that. He states he wants to focus on his L UE as it has not made the same amount of progress as his L LE. He ambulates with a SPC and lives with his . he has to use the stairs constantly at home. He reports a few falls at home since the stroke. He says the only exercise he does at home currently is stairs. PT-OP-C Subjective Start: 01/19/23 09:03 Freq: Status: Active Protocol: Document 06/08/23 13:50 SW (Rec: 06/08/23 14:34 SW [id number]) OP-PT Subjective Patient Comments Patient Comments Pt reports hamstring cramping after last session, thinks it may have been a little too much resitance with leg press. PT-OP-E Functional Tests Start: 01/19/23 09:03 Freq: Status: Active Protocol: Document 04/08/23 12:05 DCW (Rec: 04/08/23 12:46 DCW [id number]) Functional Tests 6 Minute Walk Test Distance 412' Device Used SPC Comments 1.14 ft/sec Five Times Sit to Stand Test Score 23 Comments no UEs Timed Up and Go (TUG) Score 24.9 /c SPC Comments Three-trial average (26.3, 24. 1, 24.4) PT-OP-G Mobility & Gait Start: 01/19/23 09:03 Freq: Status: Active Protocol: Document 04/08/23 12:05 DCW (Rec: 04/08/23 12:46 DCW [id number]) OP Gait Assessment Gait Gait Assistance Required: Contact Guard Assist,1 Person Assist Distance (Feet) 412 Able to Maintain Weight Bearing Status No During Gait Assistive Devices Assistive Device Gait Belt,Straight Cane Gait Deviations General Gait Pattern Antalgic,Decreased Stride Length,Decreased Feet Clearance,Lateral Trunk Lean PT-OP-M Strength Start: 01/19/23 09:03 Freq: Status: Active Protocol: Document 04/08/23 12:05 DCW (Rec: 04/08/23 12:46 [facility] [id number]) Hip Strength Hip Manual Muscle Testing Right Flexion (L2) 4+ Good+ Extension (S1) 4+ Good+ Abduction 4+ Good+ Adduction 4+ Good+ External Rotation 5 Normal Internal Rotation 5 Normal Left Flexion (L2) 3 Fair Extension (S1) 4- Good- Abduction 3+ Fair+ Adduction 4 Good External Rotation 3- Fair- Internal Rotation 3- Fair- Knee Strength Knee Manual Muscle Testing Right Flexion (S2) 5 Normal Extension (L3) 5 Normal Left Flexion (S2) 2- Poor- Extension (L3) 4- Good- Comments unable to dissociate hip and knee movements; goes into knee extension AND hip extension PT-OP-Q Treatments Start: 01/19/23 09:03 Freq: Status: Active Protocol: Document 06/08/23 13:50 SW (Rec: 06/08/23 14:34 [id number]) Therapeutic Exercises Sitting Exercises stagger stance sit to stand Right LE fwd Sitting Exercise Name with UE use Reps/Minutes 2 X10 Comments Verbal cues for LE position X10 pre and post calf stretch ankle PF/DF Sitting Exercise Name AROM DF Side bilateral Reps/Minutes 2X10 Comments post calf stretch, bilateral for carryover right to left Standing Exercises calf stretch Standing Exercise Name TKE during gastroc, then soleus Side bilateral Equipment Used CHRISTIANE, rail support RUE Reps/Minutes 2x 60 SH each Comments good calf stretch felt TKE Standing Exercise Name TKE Side left Resistance [place] TB #3 Equipment Used // bars Reps/Minutes 10 sec x10 Comments cued slow control, not into hyperextension and slower eccentric flexion Gait Training Gait Activity ambulation with 3rd foot cane Level of Assistance CGA Surface floor Distance/Duration 120 ft x 2 Comments Verbal cues to increase stance phase time left LE and for posture. Verbal cues to stop when left feet are scuffing and lateral weight shift for a minute then proceed Neuro Re-Education Treatment Balance Activities stagger stance Reps/Duration X10 each LE Comments with weight shifting and tapping to facilitate left quad when left LE is positioned fwd Tandem Stance Details Tandem Stance Equipment // bars Comments CGA with eyes open and eyes closed Tilt board Details Lateral weight shift, DF/PF Comments Limited UE support on // bars Other Activities glute med isometric Details manual resistance very light left LE Reps/Duration X1 one minute Comments seated hip abduction, trialed contralateral side for carryover PT-OP-T Assessment and Plan Start: 01/19/23 09:03 Freq: Status: Active Protocol: Document 06/08/23 13:50 SW (Rec: 06/08/23 14:34 SW [id number]) Physical Therapy Assessment Goals 6MWT Impairment 6MWT Impairment IE: 360 feet with SPC Short Term Goal (STG) Pt will improve 6MWT by 160 feet (MCID) to a score > 520 feet. STG Duration 05/25/23 Medication Aide Goal (LTG) Pt will improve 6MWT by 320 feet (MCID) to a score > 680 feet. LTG Duration 07/07/23 stairs Impairment stair negotiation Skilled Nursing Goal (LTG) Pt will be able to ascend stairs with step through gait pattern and use single railing . LTG Duration MET muscle isolation Impairment muscle isolation Impairment unable to extend knee separately from hip extension Skilled Nursing Goal (LTG) Pt will be able to perform seated knee extensions using 5 # weight without compensatory hip extension. LTG Duration 07/07/23 SPPB Impairment SPPB Impairment IE: 4/12 Skilled Nursing Goal (LTG) Pt will improve SPPB score to >7/12. LTG Duration 07/07/23 HEP Impairment HEP Short Term Goal (STG) Pt will report performing HEP >3 days/week. STG Duration Met Skilled Nursing Goal (LTG) Pt will report performing HEP >3 days/week. LTG Duration 07/07/23 Assessment Summary Assessment Focused on gait, and exercises that strengthen LLE for carryover into gait, verbal cues for foot clearance and pt education on importance of foot clearance for safety during ambulation. Physical Therapy Plan Frequency and Duration Frequency of Treatment 2x/Week Plan of Care Start Date 04/08/23 Plan of Care End Date 07/07/23 Therapeutic Interventions Therapeutic Interventions Gait Training,Home Exercise Program,Manual Therapy, Neuromuscular Re-education, Orthotic/Prosthetic Management ,Patient/Caregiver Education, Self-Care/Home Management,Soft Tissue Mobilization,Taping, Therapeutic Activities, Therapeutic Exercises Next Visit Focus/Plan Next Note Type Treatment Note Next Visit Plan Continue EC balance, strengthening mechanics LLE with postural corrections to support energy conservation. POC: Balance challenges, gait/ stair training, strengthening, calf stretch prior to stagger stance sit to stand next session
--- NOTE | 2023-06-10 12:00 | PT.OTN ---
Current Diagnoses Cerebral infarction, unspecified (06/10/23) Physical Therapy Treatment Note PT-OP-A Visit Information Start: 01/19/23 09:03 Freq: Status: Active Protocol: Document 06/10/23 11:21 SP (Rec: 06/10/23 12:12 SP [id number]) Out-Patient Physical Therapy Visit Information Visit Information Visit Type Treatment Note Visit Start Time 11:21 Visit Stop Time 12:00 Visit Number 39 Number of CENTRAL STERILIZATION TECHNICIAN Visits 3 Evaluation Information Evaluation Date 01/19/23 PT-OP-B Current Condition Start: 01/19/23 09:03 Freq: Status: Active Protocol: Document 01/19/23 13:29 ED (Rec: 01/19/23 13:41 ED [id number]) Current Condition History of Current Condition Onset Date June Current Complaints L sided hemiplegia History of Current Condition 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 He received home health and recently graduated from that. He states he wants to focus on his L UE as it has not made the same amount of progress as his L LE. He ambulates with a SPC and lives with his . he has to use the stairs constantly at home. He reports a few falls at home since the stroke. He says the only exercise he does at home currently is stairs. PT-OP-C Subjective Start: 01/19/23 09:03 Freq: Status: Active Protocol: Document 06/10/23 11:21 SP (Rec: 06/10/23 12:12 SP [id number]) OP-PT Subjective Patient Comments Patient Comments Pt reports missed an appt 2 ago due to calf cramping. Today almost fell going down stairs due to LOB but caught self (side steps R facing LHR) , L foot WB onto R inner sole. PT-OP-E Functional Tests Start: 01/19/23 09:03 Freq: Status: Active Protocol: Document 04/08/23 12:05 DCW (Rec: 04/08/23 12:46 DCW [id number]) Functional Tests 6 Minute Walk Test Distance 412' Device Used SPC Comments 1.14 ft/sec Five Times Sit to Stand Test Score 23 Comments no UEs Timed Up and Go (TUG) Score 24.9 /c SPC Comments Three-trial average (26.3, 24. 1, 24.4) PT-OP-G Mobility & Gait Start: 01/19/23 09:03 Freq: Status: Active Protocol: Document 04/08/23 12:05 DCW (Rec: 04/08/23 12:46 DCW [id number]) OP Gait Assessment Gait Gait Assistance Required: Contact Guard Assist,1 Person Assist Distance (Feet) 412 Able to Maintain Weight Bearing Status No During Gait Assistive Devices Assistive Device Gait Belt,Straight Cane Gait Deviations General Gait Pattern Antalgic,Decreased Stride Length,Decreased Feet Clearance,Lateral Trunk Lean PT-OP-M Strength Start: 01/19/23 09:03 Freq: Status: Active Protocol: Document 04/08/23 12:05 DCW (Rec: 04/08/23 12:46 DCW [id number]) Hip Strength Hip Manual Muscle Testing Right Flexion (L2) 4+ Good+ Extension (S1) 4+ Good+ Abduction 4+ Good+ Adduction 4+ Good+ External Rotation 5 Normal Internal Rotation 5 Normal Left Flexion (L2) 3 Fair Extension (S1) 4- Good- Abduction 3+ Fair+ Adduction 4 Good External Rotation 3- Fair- Internal Rotation 3- Fair- Knee Strength Knee Manual Muscle Testing Right Flexion (S2) 5 Normal Extension (L3) 5 Normal Left Flexion (S2) 2- Poor- Extension (L3) 4- Good- Comments unable to dissociate hip and knee movements; goes into knee extension AND hip extension PT-OP-Q Treatments Start: 01/19/23 09:03 Freq: Status: Active Protocol: Document 06/10/23 11:21 SP (Rec: 06/10/23 12:12 SP [id number]) Cardio Equipment Recumbent Stepper (Sci-Fit) Duration (Minutes) 7 Resistance 3 Seat Position 13 Other LEs only, cued LLE full ext, 40-45 RPMs Gym Equipment Shuttle Recovery Unilateral Squats Details L tactile cues Knee lat alignment, heel press asc/desc Resistance 50# (2 navy) Shuttle Recovery Platform Stable Reps/Time x12 max rep- improved add/abd engagement /c cues midline, & ankle mob Bilateral Squats Details cued unwt RLE allow LLE more active quad/HS/glut heel drive ext/control ret Resistance 87# (Three new)> 75 # (3 navy) Shuttle Recovery Platform Stable Reps/Time x10 Therapeutic Exercises Sitting Exercises knee extension Sitting Exercise Name knee extension, unable to achieve full TKE Side left Resistance on shuttle recovery, 4 step under stationary LE Equipment Used neckwedge& pillow under LUE elbow trunk support midline Reps/Minutes LE x10 target kick to TKE, RLE 5 SH x12 Comments decreased trunk ext, improve VMO hold Other Exercises Side-stepping Other Exercise Name Side-stepping Side bilateral Resistance // bars PRN /c RUE Reps/Minutes 15 ft x2 laps Comments cued tall over RLE stance LE and allow LLE knee bend & foot clearance- impr PT-OP-T Assessment and Plan Start: 01/19/23 09:03 Freq: Status: Active Protocol: Document 06/10/23 11:21 SP (Rec: 06/10/23 12:12 SP [id number]) Physical Therapy Assessment Goals 6MWT Impairment 6MWT Impairment IE: 360 feet with SPC Short Term Goal (STG) Pt will improve 6MWT by 160 feet (MCID) to a score > 520 feet. STG Duration 05/25/23 Tombstone Setter Goal (LTG) Pt will improve 6MWT by 320 feet (MCID) to a score > 680 feet. LTG Duration 07/07/23 stairs Impairment stair negotiation Alf Goal (LTG) Pt will be able to ascend stairs with step through gait pattern and use single railing . LTG Duration MET muscle isolation Impairment muscle isolation Impairment unable to extend knee separately from hip extension Tombstone Setter Goal (LTG) Pt will be able to perform seated knee extensions using 5 # weight without compensatory hip extension. LTG Duration 07/07/23 SPPB Impairment SPPB Impairment IE: 4/12 Tombstone Setter Goal (LTG) Pt will improve SPPB score to >7/12. LTG Duration 07/07/23 HEP Impairment HEP Short Term Goal (STG) Pt will report performing HEP >3 days/week. STG Duration Met Tombstone Setter Goal (LTG) Pt will report performing HEP >3 days/week. LTG Duration 07/07/23 Assessment Summary Assessment Tx focused on quad activation on L>R LE during LAQ (noted more distal VMO engagement during ther ex today, pt pleased seeing), shuttle recovery press and carryover gait fwd and lateral, improved trunk alignment with education and less flexed ankle L knee into flexion stance time during gait leaving. Physical Therapy Plan Frequency and Duration Frequency of Treatment 2x/Week Plan of Care Start Date 04/08/23 Plan of Care End Date 07/07/23 Therapeutic Interventions Therapeutic Interventions Gait Training,Home Exercise Program,Manual Therapy, Neuromuscular Re-education, Orthotic/Prosthetic Management ,Patient/Caregiver Education, Self-Care/Home Management,Soft Tissue Mobilization,Taping, Therapeutic Activities, Therapeutic Exercises Next Visit Focus/Plan Next Note Type Treatment Note Next Visit Plan check response to quad focus last tx. POC: Continue EC balance, strengthening mechanics LLE with postural corrections to support energy conservation. POC: Balance challenges, gait/ stair training, strengthening, calf stretch prior to stagger stance sit to stand next session
--- NOTE | 2023-06-21 16:29 | PT.OTN ---
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 He received home health and recently graduated from that. He states he wants to focus on his L UE as it has not made the same amount of progress as his L LE. He ambulates with a SPC and lives with his . he has to use the stairs constantly at home. He reports a few falls at home since the stroke. He says the only exercise he does at home currently is stairs. PT-OP-C Subjective Start: 01/19/23 09:03 Freq: Status: Active Protocol: Document 06/21/23 13:46 SW (Rec: 06/21/23 14:32 [id number]) OP-PT Subjective Patient Comments Patient Comments Pt reports calf cramping today . Pt reports increased insomnia, noticed sleep lately has been not as good, uncomfortable. PT-OP-E Functional Tests Start: 01/19/23 09:03 Freq: Status: Active Protocol: Document 04/08/23 12:05 DCW (Rec: 04/08/23 12:46 DCW [id number]) Functional Tests 6 Minute Walk Test Distance 412' Device Used SPC Comments 1.14 ft/sec Five Times Sit to Stand Test Score 23 Comments no UEs Timed Up and Go (TUG) Score 24.9 /c SPC Comments Three-trial average (26.3, 24. 1, 24.4) PT-OP-G Mobility & Gait Start: 01/19/23 09:03 Freq: Status: Active Protocol: Document 04/08/23 12:05 DCW (Rec: 04/08/23 12:46 DCW [id number]) OP Gait Assessment Gait Gait Assistance Required: Contact Guard Assist,1 Person Assist Distance (Feet) 412 Able to Maintain Weight Bearing Status No During Gait Assistive Devices Assistive Device Gait Belt,Straight Cane Gait Deviations General Gait Pattern Antalgic,Decreased Stride Length,Decreased Feet Clearance,Lateral Trunk Lean PT-OP-M Strength Start: 01/19/23 09:03 Freq: Status: Active Protocol: Document 04/08/23 12:05 DCW (Rec: 04/08/23 12:46 DCW [id number]) Hip Strength Hip Manual Muscle Testing Right Flexion (L2) 4+ Good+ Extension (S1) 4+ Good+ Abduction 4+ Good+ Adduction 4+ Good+ External Rotation 5 Normal Internal Rotation 5 Normal Left Flexion (L2) 3 Fair Extension (S1) 4- Good- Abduction 3+ Fair+ Adduction 4 Good External Rotation 3- Fair- Internal Rotation 3- Fair- Knee Strength Knee Manual Muscle Testing Right Flexion (S2) 5 Normal Extension (L3) 5 Normal Left Flexion (S2) 2- Poor- Extension (L3) 4- Good- Comments unable to dissociate hip and knee movements; goes into knee extension AND hip extension PT-OP-Q Treatments Start: 01/19/23 09:03 Freq: Status: Active Protocol: Document 06/21/23 13:46 SW (Rec: 06/21/23 14:32 SW [id number]) Cardio Equipment Recumbent Stepper (Sci-Fit) Duration (Minutes) 7 Resistance 3 Seat Position 13 Other LEs only, cued LLE full ext, 40-45 RPMs, pt education Gym Equipment Shuttle Recovery Unilateral Squats Details L tactile cues Knee lat alignment, heel press asc/desc Resistance 50# (2 navy) Shuttle Recovery Platform Stable Reps/Time x12 max rep- improved add/abd engagement /c cues midline, & ankle mob Bilateral Squats Details cued unwt RLE allow LLE more active quad/HS/glut heel drive ext/control ret Resistance 87# (Three new)> 75 # (3 navy) Shuttle Recovery Platform Stable Reps/Time x10 Therapeutic Exercises Sitting Exercises knee extension Sitting Exercise Name knee extension, unable to achieve full TKE Side left Resistance on shuttle recovery, 4 step under stationary LE Equipment Used neckwedge& pillow under LUE elbow trunk support midline Reps/Minutes LE x10 target kick to TKE, RLE 5 SH x12 Comments decreased trunk ext, improve VMO hold Standing Exercises calf stretch Standing Exercise Name TKE during gastroc Side bilateral Equipment Used CHRISTIANE, rail support RUE Reps/Minutes 2x 60 SH each Comments good calf stretch felt TKE Standing Exercise Name TKE Side left Resistance [place] TB #3 Equipment Used // bars Reps/Minutes 10 sec x10 Comments cued slow control, not into hyperextension and slower eccentric flexion Gait Training Gait Activity ambulation with 3rd foot cane Level of Assistance CGA Surface floor Distance/Duration 120 ft Comments Verbal cues to increase stance phase time left LE and for posture. Verbal cues to stop when left feet are scuffing and lateral weight shift for a minute then proceed Neuro Re-Education Treatment Balance Activities Static balance Details weight shifts Surface stable Comments mirror feedback for postural correction, lateral weight shift, focusing on maintaining TKE on LLE PT-OP-T Assessment and Plan Start: 01/19/23 09:03 Freq: Status: Active Protocol: Document 06/21/23 13:46 (Rec: 06/21/23 16:29 [id number]) Physical Therapy Assessment Goals 6MWT Impairment 6MWT Impairment IE: 360 feet with SPC Short Term Goal (STG) Pt will improve 6MWT by 160 feet (MCID) to a score > 520 feet. STG Duration 05/25/23 Mcc Goal (LTG) Pt will improve 6MWT by 320 feet (MCID) to a score > 680 feet. LTG Duration 07/07/23 stairs Impairment stair negotiation Mcc Goal (LTG) Pt will be able to ascend stairs with step through gait pattern and use single railing . LTG Duration MET muscle isolation Impairment muscle isolation Impairment unable to extend knee separately from hip extension Mcc Goal (LTG) Pt will be able to perform seated knee extensions using 5 # weight without compensatory hip extension. LTG Duration 07/07/23 SPPB Impairment SPPB Impairment IE: 4/12 Rib Puller Goal (LTG) Pt will improve SPPB score to >7/12. LTG Duration 07/07/23 HEP Impairment HEP Short Term Goal (STG) Pt will report performing HEP >3 days/week. STG Duration Met Rib Puller Goal (LTG) Pt will report performing HEP >3 days/week. LTG Duration 07/07/23 Assessment Summary Assessment Used mirror feedback for visual cues to upright posture during weight shifting into LLE this session during balance, improved TKE in standing during weight shifting this session, able to mainatin TKE for increased time, tactile cues to prevent hyper extension. Pt required cueing for BLE during gait this session for foot clearance. Physical Therapy Plan Frequency and Duration Frequency of Treatment 2x/Week Plan of Care Start Date 04/08/23 Plan of Care End Date 07/07/23 Therapeutic Interventions Therapeutic Interventions Gait Training,Home Exercise Program,Manual Therapy, Neuromuscular Re-education, Orthotic/Prosthetic Management ,Patient/Caregiver Education, Self-Care/Home Management,Soft Tissue Mobilization,Taping, Therapeutic Activities, Therapeutic Exercises Next Visit Focus/Plan Next Note Type Treatment Note Next Visit Plan check response to quad focus last tx. POC: Continue EC balance, strengthening mechanics LLE with postural corrections to support energy conservation. POC: Balance challenges, gait/ stair training, strengthening, calf stretch prior to stagger stance sit to stand next session
--- NOTE | 2023-07-05 17:46 | PT.OTN ---
Current Diagnoses Cerebral infarction, unspecified (07/05/23) Physical Therapy Treatment Note PT-OP-A Visit Information Start: 01/19/23 09:03 Freq: Status: Active Protocol: Document 07/05/23 15:15 DCW (Rec: 07/05/23 15:54 DCW [id number]) Out-Patient Physical Therapy Visit Information Visit Information Visit Type Progress Note Visit Start Time 15:15 Visit Stop Time 15:50 Visit Number 41 Number of CLAY CASTER Visits 0 Evaluation Information Evaluation Date 01/19/23 PT-OP-B Current Condition Start: 01/19/23 09:03 Freq: Status: Active Protocol: Document 01/19/23 13:29 ED (Rec: 01/19/23 13:41 ED [id number]) Current Condition History of Current Condition Onset Date June Current Complaints L sided hemiplegia History of Current Condition 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 He received home health and recently graduated from that. He states he wants to focus on his L UE as it has not made the same amount of progress as his L LE. He ambulates with a SPC and lives with his . he has to use the stairs constantly at home. He reports a few falls at home since the stroke. He says the only exercise he does at home currently is stairs. PT-OP-C Subjective Start: 01/19/23 09:03 Freq: Status: Active Protocol: Document 07/05/23 15:15 DCW (Rec: 07/05/23 15:54 DCW [id number]) OP-PT Subjective Patient Comments Patient Comments Pt pretty fatigued due to OT immediately prior to PT PT-OP-E Functional Tests Start: 01/19/23 09:03 Freq: Status: Active Protocol: Document 07/05/23 15:15 DCW (Rec: 07/05/23 15:48 DCW [id number]) Functional Tests 6 Minute Walk Test Distance 428' Device Used SPC Comments 1.19 ft/sec Five Times Sit to Stand Test Score 21 Comments no UEs Timed Up and Go (TUG) Score 19.2 /s AD Comments Three-trial average (17.76, 19 .74, 20.14) TUG Impairment Rating 80 to <100% Impaired (Score 18 -19) PT-OP-G Mobility & Gait Start: 01/19/23 09:03 Freq: Status: Active Protocol: Document 07/05/23 15:15 DCW (Rec: 07/05/23 15:48 DCW [id number]) OP Gait Assessment Gait Gait Assistance Required: Contact Guard Assist,1 Person Assist Distance (Feet) 428 Able to Maintain Weight Bearing Status No During Gait Assistive Devices Assistive Device Gait Belt,Straight Cane Gait Deviations General Gait Pattern Antalgic,Decreased Stride Length,Decreased Feet Clearance,Lateral Trunk Lean PT-OP-M Strength Start: 01/19/23 09:03 Freq: Status: Active Protocol: Document 07/05/23 15:15 DCW (Rec: 07/05/23 15:48 DCW [id number]) Hip Strength Hip Manual Muscle Testing Right Flexion (L2) 4+ Good+ Extension (S1) 4+ Good+ Abduction 4+ Good+ Adduction 4+ Good+ External Rotation 5 Normal Internal Rotation 5 Normal Left Flexion (L2) 3+ Fair+ Extension (S1) 4 Good Abduction 3+ Fair+ Adduction 4 Good External Rotation 3 Fair Internal Rotation 3- Fair- Knee Strength Knee Manual Muscle Testing Right Flexion (S2) 5 Normal Extension (L3) 5 Normal Left Flexion (S2) 2+ Poor+ Extension (L3) 4 Good Comments unable to dissociate hip and knee movements; goes into knee extension AND hip extension PT-OP-Q Treatments Start: 01/19/23 09:03 Freq: Status: Active Protocol: Document 07/05/23 15:15 DCW (Rec: 07/05/23 15:54 DCW [id number]) Neuro Re-Education Treatment Other Activities Testing Comments 6MWT, TUG, 5xStS, MMT PT-OP-T Assessment and Plan Start: 01/19/23 09:03 Freq: Status: Active Protocol: Document 07/05/23 15:15 DCW (Rec: 07/05/23 17:45 DCW [id number]) Physical Therapy Assessment Impairments Impairments Activity Tolerance,Balance, Functional Activities, Functional Mobility,Gait, Strength,Tone,Transfers Goals 6MWT Impairment 6MWT Impairment IE: 360 feet with SPC Short Term Goal (STG) Pt will improve 6MWT by 160 feet (MCID) to a score > 520 feet. STG Duration 09/04/23 Acid Adjuster Goal (LTG) Pt will improve 6MWT by 320 feet (MCID) to a score > 680 feet. LTG Duration 10/03/23 stairs Impairment stair negotiation Acid Adjuster Goal (LTG) Pt will be able to ascend stairs with step through gait pattern and use single railing . LTG Duration MET muscle isolation Impairment muscle isolation Impairment unable to extend knee separately from hip extension Acid Adjuster Goal (LTG) Pt will be able to perform seated knee extensions using 5 # weight without compensatory hip extension. LTG Duration 10/03/23 HEP Impairment HEP Short Term Goal (STG) Pt will report performing HEP >3 days/week. STG Duration Met Acid Adjuster Goal (LTG) Pt will report performing HEP >3 days/week. LTG Duration 10/03/23 Assessment Summary Assessment Pt made some minimal-moderate progress with re-testing today . Five second improvement with TUG, in addition to no longer using his AD during the test. 5 second StS also showing improvement by two seconds. LE strength also improving. Minimal change with 6MWT. Pt should benefit from skilled therapy continuing to focus on strengthening, gait, balance, activity tolerance, and functional activity. Physical Therapy Plan Frequency and Duration Frequency of Treatment 2x/Week Plan of Care Start Date 07/05/23 Plan of Care End Date 10/03/23 Therapeutic Interventions Therapeutic Interventions Gait Training,Home Exercise Program,Manual Therapy, Neuromuscular Re-education, Orthotic/Prosthetic Management ,Patient/Caregiver Education, Self-Care/Home Management,Soft Tissue Mobilization,Taping, Therapeutic Activities, Therapeutic Exercises Next Visit Focus/Plan Next Note Type Treatment Note Next Visit Plan check response to quad focus last tx. POC: Continue EC balance, strengthening mechanics LLE with postural corrections to support energy conservation. POC: Balance challenges, gait/ stair training, strengthening, calf stretch prior to stagger stance sit to stand next session
--- NOTE | 2023-07-05 17:46 | PT.OPPOC ---
Physical, Occupational & Speech Therapy At [facility] Current Diagnoses Cerebral infarction, unspecified (07/05/23) Visit Care Team Role Provider Type Kristian Kim MD Attending Provider Physician Family Provider Primary Care Provider Referring Provider Specialty: Family Practice Address: [address] [place] [address], [id number] Email: [email or web address] Plan Of Care PT-OP-T Assessment and Plan Start: 01/19/23 09:03 Freq: Status: Active Protocol: Document 07/05/23 15:15 DCW (Rec: 07/05/23 17:45 DCW [id number]) Physical Therapy Assessment Impairments Impairments Activity Tolerance,Balance, Functional Activities, Functional Mobility,Gait, Strength,Tone,Transfers Goals 6MWT Impairment 6MWT Impairment IE: 360 feet with SPC Short Term Goal (STG) Pt will improve 6MWT by 160 feet (MCID) to a score > 520 feet. STG Duration 09/04/23 Usp Goal (LTG) Pt will improve 6MWT by 320 feet (MCID) to a score > 680 feet. LTG Duration 10/03/23 stairs Impairment stair negotiation Usp Goal (LTG) Pt will be able to ascend stairs with step through gait pattern and use single railing . LTG Duration MET muscle isolation Impairment muscle isolation Impairment unable to extend knee separately from hip extension Lathe Set Up Operator Goal (LTG) Pt will be able to perform seated knee extensions using 5 # weight without compensatory hip extension. LTG Duration 10/03/23 HEP Impairment HEP Short Term Goal (STG) Pt will report performing HEP >3 days/week. STG Duration Met Lathe Set Up Operator Goal (LTG) Pt will report performing HEP >3 days/week. LTG Duration 10/03/23 Assessment Summary Assessment Pt made some minimal-moderate progress with re-testing today . Five second improvement with TUG, in addition to no longer using his AD during the test. 5 second StS also showing improvement by two seconds. LE strength also improving. Minimal change with 6MWT. Pt should benefit from skilled therapy continuing to focus on strengthening, gait, balance, activity tolerance, and functional activity. Physical Therapy Plan Frequency and Duration Frequency of Treatment 2x/Week Plan of Care Start Date 07/05/23 Plan of Care End Date 10/03/23 Therapeutic Interventions Therapeutic Interventions Gait Training,Home Exercise Program,Manual Therapy, Neuromuscular Re-education, Orthotic/Prosthetic Management ,Patient/Caregiver Education, Self-Care/Home Management,Soft Tissue Mobilization,Taping, Therapeutic Activities, Therapeutic Exercises Next Visit Focus/Plan Next Note Type Treatment Note Next Visit Plan check response to quad focus last tx. POC: Continue EC balance, strengthening mechanics LLE with postural corrections to support energy conservation. POC: Balance challenges, gait/ stair training, strengthening, calf stretch prior to stagger stance sit to stand next session Plan of Care Dates Plan of Care Start Date 07/05/23 Plan of Care End Date 10/03/23 Electronically Signed by: Jasiel Vila, PT 07/05/23 9630 If you are in agreement with this Plan of Care, please return a signed and dated copy. I have reviewed this Plan of Care and certify that the skilled therapy services above are required to meet the patient?s needs. Physician Signature Date Printed Name and Credentials Clinical Instructor Signature Printed Name and Credentials
--- NOTE | 2023-07-12 16:19 | PT.OTN ---
Current Diagnoses Cerebral infarction, unspecified (07/12/23) Physical Therapy Treatment Note PT-OP-A Visit Information Start: 01/19/23 09:03 Freq: Status: Active Protocol: Document 07/12/23 08:56 AB (Rec: 07/12/23 16:19 AB [id number]) Out-Patient Physical Therapy Visit Information Visit Information Visit Type Treatment Note Visit Start Time 10:33 Visit Stop Time 11:15 Visit Number 42 Number of MARKETING AND DEVELOPMENT COORDINATOR Visits 2 Evaluation Information Evaluation Date 01/19/23 PT-OP-B Current Condition Start: 01/19/23 09:03 Freq: Status: Active Protocol: Document 01/19/23 13:29 ED (Rec: 01/19/23 13:41 ED [id number]) Current Condition History of Current Condition Onset Date June Current Complaints L sided hemiplegia History of Current Condition 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 He received home health and recently graduated from that. He states he wants to focus on his L UE as it has not made the same amount of progress as his L LE. He ambulates with a SPC and lives with his . he has to use the stairs constantly at home. He reports a few falls at home since the stroke. He says the only exercise he does at home currently is stairs. PT-OP-C Subjective Start: 01/19/23 09:03 Freq: Status: Active Protocol: Document 07/12/23 08:56 AB (Rec: 07/12/23 16:19 AB [id number]) OP-PT Subjective Patient Comments Patient Comments Patient reports he was happy and surprised with finding out he did better on his testing previous session, but comments it is hard for him to tell if he is getting better. Patient reports he gets soreness a couple of days post using the leg press. PT-OP-E Functional Tests Start: 01/19/23 09:03 Freq: Status: Active Protocol: Document 07/05/23 15:15 DCW (Rec: 07/05/23 15:48 DCW [id number]) Functional Tests 6 Minute Walk Test Distance 428' Device Used SPC Comments 1.19 ft/sec Five Times Sit to Stand Test Score 21 Comments no UEs Timed Up and Go (TUG) Score 19.2 /s AD Comments Three-trial average (17.76, 19 .74, 20.14) TUG Impairment Rating 80 to <100% Impaired (Score 18 -19) PT-OP-G Mobility & Gait Start: 01/19/23 09:03 Freq: Status: Active Protocol: Document 07/05/23 15:15 DCW (Rec: 07/05/23 15:48 DCW [id number]) OP Gait Assessment Gait Gait Assistance Required: Contact Guard Assist,1 Person Assist Distance (Feet) 428 Able to Maintain Weight Bearing Status No During Gait Assistive Devices Assistive Device Gait Belt,Straight Cane Gait Deviations General Gait Pattern Antalgic,Decreased Stride Length,Decreased Feet Clearance,Lateral Trunk Lean PT-OP-M Strength Start: 01/19/23 09:03 Freq: Status: Active Protocol: Document 07/05/23 15:15 DCW (Rec: 07/05/23 15:48 DCW [id number]) Hip Strength Hip Manual Muscle Testing Right Flexion (L2) 4+ Good+ Extension (S1) 4+ Good+ Abduction 4+ Good+ Adduction 4+ Good+ External Rotation 5 Normal Internal Rotation 5 Normal Left Flexion (L2) 3+ Fair+ Extension (S1) 4 Good Abduction 3+ Fair+ Adduction 4 Good External Rotation 3 Fair Internal Rotation 3- Fair- Knee Strength Knee Manual Muscle Testing Right Flexion (S2) 5 Normal Extension (L3) 5 Normal Left Flexion (S2) 2+ Poor+ Extension (L3) 4 Good Comments unable to dissociate hip and knee movements; goes into knee extension AND hip extension PT-OP-Q Treatments Start: 01/19/23 09:03 Freq: Status: Active Protocol: Document 07/12/23 08:56 AB (Rec: 07/12/23 16:19 AB [id number]) Therapeutic Exercises Sitting Exercises seated hamstring stretch Side left Reps/Minutes 60 seconds X 2 Comments prior to step ups seated hip abduction with band Resistance light blue band then manual Reps/Minutes X10 and then one minute hold X 1 Comments Verbal cues ankle PF/DF Sitting Exercise Name AROM DF Side bilateral Reps/Minutes 2X10 Comments post calf stretch, bilateral for carryover right to left Standing Exercises side stepping Side bilateral Reps/Minutes 10 feet X 3 left and right Comments VC to avoid toeing out, tapping to facilitate quad retro stepping Standing Exercise Name CGA Side bilateral Reps/Minutes 10 feet X 3 calf stretch Standing Exercise Name TKE during gastroc Side bilateral Equipment Used CHRISTIANE, rail support RUE Reps/Minutes 3x 60 SH each Comments verbal cues Step ups Standing Exercise Name Step ups- concentric and eccentric Side bilateral Resistance 2 steps then with scale Equipment Used Handrail RUE- light Reps/Minutes 5 min Comments repeated 180 lb force through left LE to 200 X 1 during trials Other Exercises Sit to stand Other Exercise Name CGA Side bilateral Reps/Minutes X10 Comments stagger stance left Le back PT-OP-T Assessment and Plan Start: 01/19/23 09:03 Freq: Status: Active Protocol: Document 07/12/23 08:56 AB (Rec: 07/12/23 16:19 AB [id number]) Physical Therapy Assessment Goals 6MWT Impairment 6MWT Impairment IE: 360 feet with SPC Short Term Goal (STG) Pt will improve 6MWT by 160 feet (MCID) to a score > 520 feet. STG Duration 09/04/23 Wastewater Project Engineer Goal (LTG) Pt will improve 6MWT by 320 feet (MCID) to a score > 680 feet. LTG Duration 10/03/23 stairs Impairment stair negotiation Mcc Goal (LTG) Pt will be able to ascend stairs with step through gait pattern and use single railing . LTG Duration MET muscle isolation Impairment muscle isolation Impairment unable to extend knee separately from hip extension Wastewater Project Engineer Goal (LTG) Pt will be able to perform seated knee extensions using 5 # weight without compensatory hip extension. LTG Duration 10/03/23 HEP Impairment HEP Short Term Goal (STG) Pt will report performing HEP >3 days/week. STG Duration Met Mcc Goal (LTG) Pt will report performing HEP >3 days/week. LTG Duration 10/03/23 Assessment Summary Assessment Patient reports he feels better than he thought he would end of session Physical Therapy Plan Frequency and Duration Frequency of Treatment 2x/Week Plan of Care Start Date 07/05/23 Plan of Care End Date 10/03/23 Next Visit Focus/Plan Next Note Type Treatment Note Next Visit Plan POC: Continue EC balance, strengthening mechanics LLE with postural corrections to support energy conservation. POC: Balance challenges, gait/ stair training, strengthening, calf stretch prior to stagger stance sit to stand next session
--- NOTE | 2023-07-19 15:44 | PT.OTN ---
Current Diagnoses Cerebral infarction, unspecified (07/19/23) Physical Therapy Treatment Note PT-OP-A Visit Information Start: 01/19/23 09:03 Freq: Status: Active Protocol: Document 07/19/23 14:37 SW (Rec: 07/19/23 15:20 [id number]) Out-Patient Physical Therapy Visit Information Visit Information Visit Type Treatment Note Visit Start Time 14:34 Visit Stop Time 15:12 Visit Number 38 Number of POULTRY FARMER EGG Visits 3 PT-OP-B Current Condition Start: 01/19/23 09:03 Freq: Status: Active Protocol: Document 01/19/23 13:29 ED (Rec: 01/19/23 13:41 ED [id number]) Current Condition History of Current Condition Onset Date June Current Complaints L sided hemiplegia History of Current Condition 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 He received home health and recently graduated from that. He states he wants to focus on his L UE as it has not made the same amount of progress as his L LE. He ambulates with a SPC and lives with his . he has to use the stairs constantly at home. He reports a few falls at home since the stroke. He says the only exercise he does at home currently is stairs. PT-OP-C Subjective Start: 01/19/23:03 Freq: Status: Active Protocol: Document 07/19/23 14:37 SW (Rec: 07/19/23 15:20 [id number]) OP-PT Subjective Patient Comments Patient Comments Pt reports pain after last session that pt had to cancel two sessions after, but feels much better. Pt thinks it might be from weight shifting activity that he could have over did it, but unsure if it was related or not. PT-OP-E Functional Tests Start: 01/19/23 09:03 Freq: Status: Active Protocol: Document 07/05/23 15:15 DCW (Rec: 07/05/23 15:48 DCW [id number]) Functional Tests 6 Minute Walk Test Distance 428' Device Used SPC Comments 1.19 ft/sec Five Times Sit to Stand Test Score 21 Comments no UEs Timed Up and Go (TUG) Score 19.2 /s AD Comments Three-trial average (17.76, 19 .74, 20.14) TUG Impairment Rating 80 to <100% Impaired (Score 18 -19) PT-OP-G Mobility & Gait Start: 01/19/23 09:03 Freq: Status: Active Protocol: Document 07/05/23 15:15 DCW (Rec: 07/05/23 15:48 DCW [id number]) OP Gait Assessment Gait Gait Assistance Required: Contact Guard Assist,1 Person Assist Distance (Feet) 428 Able to Maintain Weight Bearing Status No During Gait Assistive Devices Assistive Device Gait Belt,Straight Cane Gait Deviations General Gait Pattern Antalgic,Decreased Stride Length,Decreased Feet Clearance,Lateral Trunk Lean PT-OP-M Strength Start: 01/19/23 09:03 Freq: Status: Active Protocol: Document 07/05/23 15:15 DCW (Rec: 07/05/23 15:48 DCW [id number]) Hip Strength Hip Manual Muscle Testing Right Flexion (L2) 4+ Good+ Extension (S1) 4+ Good+ Abduction 4+ Good+ Adduction 4+ Good+ External Rotation 5 Normal Internal Rotation 5 Normal Left Flexion (L2) 3+ Fair+ Extension (S1) 4 Good Abduction 3+ Fair+ Adduction 4 Good External Rotation 3 Fair Internal Rotation 3- Fair- Knee Strength Knee Manual Muscle Testing Right Flexion (S2) 5 Normal Extension (L3) 5 Normal Left Flexion (S2) 2+ Poor+ Extension (L3) 4 Good Comments unable to dissociate hip and knee movements; goes into knee extension AND hip extension PT-OP-Q Treatments Start: 01/19/23 09:03 Freq: Status: Active Protocol: Document 07/19/23 14:37 SW (Rec: 07/19/23 15:20 SW [id number]) Cardio Equipment Recumbent Elliptical (Biodex) Duration (Minutes) 6 Resistance 6 Seat Position 11 Other LEs only, pull into adduction cues for alignment focus Therapeutic Exercises Sitting Exercises seated hamstring stretch Side left Reps/Minutes 60 seconds X 2 Comments prior to step ups seated hip abduction with band Resistance AROM, no resistance>AAROM Reps/Minutes X10 and then one minute hold X 1 Comments Verbal cues, contralateral> ipsilateral for carryover ankle PF/DF Sitting Exercise Name AROM DF Side bilateral Reps/Minutes 2X10 Comments post calf stretch, bilateral for carryover right to left knee extension Sitting Exercise Name knee extension, unable to achieve full TKE Side left Resistance AAROM Comments verbal cues for compensation/ breathing Other Exercises Sit to stand Other Exercise Name CGA Side bilateral Equipment Used ball between knees to prevent valgus Reps/Minutes 3 x 10 Comments stagger stance left Le back> alignment Gait Training Gait Activity ambulation with 3rd foot cane Level of Assistance CGA Surface floor Distance/Duration 300 ft Comments Endurance, gait mechanics, balance toward 6mwt goal PT-OP-T Assessment and Plan Start: 01/19/23 09:03 Freq: Status: Active Protocol: Document 07/19/23 14:37 SW (Rec: 07/19/23 15:20 SW [id number]) Physical Therapy Assessment Goals 6MWT Impairment 6MWT Impairment IE: 360 feet with SPC Short Term Goal (STG) Pt will improve 6MWT by 160 feet (MCID) to a score > 520 feet. STG Duration 09/04/23 Motel Keeper Goal (LTG) Pt will improve 6MWT by 320 feet (MCID) to a score > 680 feet. LTG Duration 10/03/23 stairs Impairment stair negotiation Alf Goal (LTG) Pt will be able to ascend stairs with step through gait pattern and use single railing . LTG Duration MET muscle isolation Impairment muscle isolation Impairment unable to extend knee separately from hip extension Alf Goal (LTG) Pt will be able to perform seated knee extensions using 5 # weight without compensatory hip extension. LTG Duration 10/03/23 HEP Impairment HEP Short Term Goal (STG) Pt will report performing HEP >3 days/week. STG Duration Met Motel Keeper Goal (LTG) Pt will report performing HEP >3 days/week. LTG Duration 10/03/23 Assessment Summary Assessment Treatment focus on strength, endurance, and gait training this session toward pt goals. Continued focus on sit to stands to further progress toward pt goal, trialed ball between knees to prevent valgus when ascending, good feedback pt tolerated well, denies pain in hip. Revisited gait this session to increase pt endurance, strength, mechanics, and for progress toward 6MWT, pt had difficulty maintaining good gait mechanics with increasing distance and onset of fatigue, decreased foot clearance, improved post rest break. Physical Therapy Plan Frequency and Duration Frequency of Treatment 2x/Week Plan of Care Start Date 07/05/23 Plan of Care End Date 10/03/23 Therapeutic Interventions Therapeutic Interventions Gait Training,Home Exercise Program,Manual Therapy, Neuromuscular Re-education, Orthotic/Prosthetic Management ,Patient/Caregiver Education, Self-Care/Home Management,Soft Tissue Mobilization,Taping, Therapeutic Activities, Therapeutic Exercises Next Visit Focus/Plan Next Note Type Treatment Note Next Visit Plan POC: Continue EC balance, strengthening mechanics LLE with postural corrections to support energy conservation. POC: Balance challenges, gait/ stair training, strengthening, calf stretch prior to stagger stance sit to stand next session
--- NOTE | 2023-07-21 15:16 | PT.OTN ---
Current Diagnoses Cerebral infarction, unspecified (07/21/23) Physical Therapy Treatment Note PT-OP-A Visit Information Start: 01/19/23 09:03 Freq: Status: Active Protocol: Document 07/21/23 14:35 DCW (Rec: 07/21/23 15:16 DCW [id number]) Out-Patient Physical Therapy Visit Information Visit Information Visit Type Treatment Note Visit Start Time 14:35 Visit Stop Time 15:15 Visit Number 44 Number of LEARNING SPECIALIST Visits 0 Evaluation Information Evaluation Date 01/19/23 PT-OP-B Current Condition Start: 01/19/23 09:03 Freq: Status: Active Protocol: Document 01/19/23 13:29 ED (Rec: 01/19/23 13:41 ED [id number]) Current Condition History of Current Condition Onset Date June Current Complaints L sided hemiplegia History of Current Condition 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 He received home health and recently graduated from that. He states he wants to focus on his L UE as it has not made the same amount of progress as his L LE. He ambulates with a SPC and lives with his . he has to use the stairs constantly at home. He reports a few falls at home since the stroke. He says the only exercise he does at home currently is stairs. PT-OP-C Subjective Start: 01/19/23 09:03 Freq: Status: Active Protocol: Document 07/21/23 14:35 DCW (Rec: 07/21/23 15:16 DCW [id number]) OP-PT Subjective Patient Comments Patient Comments Pt reports his hip is feeling a bit back to normal after having pain last week, although does admit he feels like he is still moving a little slower. PT-OP-E Functional Tests Start: 01/19/23 09:03 Freq: Status: Active Protocol: Document 07/05/23 15:15 DCW (Rec: 07/05/23 15:48 DCW [id number]) Functional Tests 6 Minute Walk Test Distance 428' Device Used SPC Comments 1.19 ft/sec Five Times Sit to Stand Test Score 21 Comments no UEs Timed Up and Go (TUG) Score 19.2 /s AD Comments Three-trial average (17.76, 19 .74, 20.14) TUG Impairment Rating 80 to <100% Impaired (Score 18 -19) PT-OP-G Mobility & Gait Start: 01/19/23 09:03 Freq: Status: Active Protocol: Document 07/05/23 15:15 DCW (Rec: 07/05/23 15:48 DCW [id number]) OP Gait Assessment Gait Gait Assistance Required: Contact Guard Assist,1 Person Assist Distance (Feet) 428 Able to Maintain Weight Bearing Status No During Gait Assistive Devices Assistive Device Gait Belt,Straight Cane Gait Deviations General Gait Pattern Antalgic,Decreased Stride Length,Decreased Feet Clearance,Lateral Trunk Lean PT-OP-M Strength Start: 01/19/23 09:03 Freq: Status: Active Protocol: Document 07/05/23 15:15 DCW (Rec: 07/05/23 15:48 DCW [id number]) Hip Strength Hip Manual Muscle Testing Right Flexion (L2) 4+ Good+ Extension (S1) 4+ Good+ Abduction 4+ Good+ Adduction 4+ Good+ External Rotation 5 Normal Internal Rotation 5 Normal Left Flexion (L2) 3+ Fair+ Extension (S1) 4 Good Abduction 3+ Fair+ Adduction 4 Good External Rotation 3 Fair Internal Rotation 3- Fair- Knee Strength Knee Manual Muscle Testing Right Flexion (S2) 5 Normal Extension (L3) 5 Normal Left Flexion (S2) 2+ Poor+ Extension (L3) 4 Good Comments unable to dissociate hip and knee movements; goes into knee extension AND hip extension PT-OP-Q Treatments Start: 01/19/23 09:03 Freq: Status: Active Protocol: Document 07/21/23 14:35 DCW (Rec: 07/21/23 15:16 DCW [id number]) Cardio Equipment Recumbent Elliptical (Biodex) Duration (Minutes) 6 Resistance 6 Seat Position 12 Other LEs only, pull into adduction cues for alignment focus Therapeutic Exercises Standing Exercises Hip Extension Standing Exercise Name Foot up on stool, Retro-kick Side right Comments Focus on upright posture, stretching hip flexors Step ups Standing Exercise Name Step-ups Side left Resistance 6 step Equipment Used Handrail RUE- light TKE Standing Exercise Name TKE Side left Resistance [place] TB #3 Equipment Used // bars Reps/Minutes 10 sec x10 Comments cued slow control, not into hyperextension and slower eccentric flexion Neuro Re-Education Treatment Balance Activities stagger stance Details Long Tandem Equipment Two AirEx Tilt board Details Lateral weight shift Comments No UE support on // bars PT-OP-T Assessment and Plan Start: 01/19/23 09:03 Freq: Status: Active Protocol: Document 07/21/23 14:35 DCW (Rec: 07/21/23 15:16 DCW [id number]) Physical Therapy Assessment Impairments Impairments Activity Tolerance,Balance, Functional Activities, Functional Mobility,Gait, Strength,Tone,Transfers Goals 6MWT Impairment 6MWT Impairment IE: 360 feet with SPC Short Term Goal (STG) Pt will improve 6MWT by 160 feet (MCID) to a score > 520 feet. STG Duration 09/04/23 Face Painter Goal (LTG) Pt will improve 6MWT by 320 feet (MCID) to a score > 680 feet. LTG Duration 10/03/23 stairs Impairment stair negotiation Assisted Goal (LTG) Pt will be able to ascend stairs with step through gait pattern and use single railing . LTG Duration MET muscle isolation Impairment muscle isolation Impairment unable to extend knee separately from hip extension Face Painter Goal (LTG) Pt will be able to perform seated knee extensions using 5 # weight without compensatory hip extension. LTG Duration 10/03/23 HEP Impairment HEP Short Term Goal (STG) Pt will report performing HEP >3 days/week. STG Duration Met Assisted Goal (LTG) Pt will report performing HEP >3 days/week. LTG Duration 10/03/23 Assessment Summary Assessment Pt had noted difficulty with upright posture, feeling like he has too much hip flexion, so worked today on hip extension and hip flexor stretching. Pt did well with new and adjusted exercises. Physical Therapy Plan Frequency and Duration Frequency of Treatment 2x/Week Plan of Care Start Date 07/05/23 Plan of Care End Date 10/03/23 Therapeutic Interventions Therapeutic Interventions Gait Training,Home Exercise Program,Manual Therapy, Neuromuscular Re-education, Orthotic/Prosthetic Management ,Patient/Caregiver Education, Self-Care/Home Management,Soft Tissue Mobilization,Taping, Therapeutic Activities, Therapeutic Exercises Next Visit Focus/Plan Next Note Type Treatment Note Next Visit Plan POC: Continue EC balance, strengthening mechanics LLE with postural corrections to support energy conservation. POC: Balance challenges, gait/ stair training, strengthening, calf stretch prior to stagger stance sit to stand next session
--- NOTE | 2023-08-02 11:20 | PT.OTN ---
Current Diagnoses Cerebral infarction, unspecified (08/02/23) Physical Therapy Treatment Note PT-OP-A Visit Information Start: 01/19/23 09:03 Freq: Status: Active Protocol: Document 08/02/23 10:38 SP (Rec: 08/02/23 11:21 SP [id number]) Out-Patient Physical Therapy Visit Information Visit Information Visit Type Treatment Note Visit Start Time 10:38 Visit Stop Time 11:20 Visit Number 40 Number of MOTORIZED SQUAD SERGEANT Visits 1 Evaluation Information Evaluation Date 01/19/23 PT-OP-B Current Condition Start: 01/19/23 09:03 Freq: Status: Active Protocol: Document 01/19/23 13:29 ED (Rec: 01/19/23 13:41 ED [id number]) Current Condition History of Current Condition Onset Date June Current Complaints L sided hemiplegia History of Current Condition 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 He received home health and recently graduated from that. He states he wants to focus on his L UE as it has not made the same amount of progress as his L LE. He ambulates with a SPC and lives with his . he has to use the stairs constantly at home. He reports a few falls at home since the stroke. He says the only exercise he does at home currently is stairs. PT-OP-C Subjective Start: 01/19/23 09:03 Freq: Status: Active Protocol: Document 08/02/23 10:38 SP (Rec: 08/02/23 11:21 SP [id number]) OP-PT Subjective Patient Comments Patient Comments Pt reports his L hip flexor tightness when woke up, strain WB on LLE. PT-OP-E Functional Tests Start: 01/19/23 09:03 Freq: Status: Active Protocol: Document 07/05/23 15:15 DCW (Rec: 07/05/23 15:48 DCW [id number]) Functional Tests 6 Minute Walk Test Distance 428' Device Used SPC Comments 1.19 ft/sec Five Times Sit to Stand Test Score 21 Comments no UEs Timed Up and Go (TUG) Score 19.2 /s AD Comments Three-trial average (17.76, 19 .74, 20.14) TUG Impairment Rating 80 to <100% Impaired (Score 18 -19) PT-OP-G Mobility & Gait Start: 01/19/23 09:03 Freq: Status: Active Protocol: Document 07/05/23 15:15 DCW (Rec: 07/05/23 15:48 DCW [id number]) OP Gait Assessment Gait Gait Assistance Required: Contact Guard Assist,1 Person Assist Distance (Feet) 428 Able to Maintain Weight Bearing Status No During Gait Assistive Devices Assistive Device Gait Belt,Straight Cane Gait Deviations General Gait Pattern Antalgic,Decreased Stride Length,Decreased Feet Clearance,Lateral Trunk Lean PT-OP-M Strength Start: 01/19/23 09:03 Freq: Status: Active Protocol: Document 07/05/23 15:15 DCW (Rec: 07/05/23 15:48 DCW [id number]) Hip Strength Hip Manual Muscle Testing Right Flexion (L2) 4+ Good+ Extension (S1) 4+ Good+ Abduction 4+ Good+ Adduction 4+ Good+ External Rotation 5 Normal Internal Rotation 5 Normal Left Flexion (L2) 3+ Fair+ Extension (S1) 4 Good Abduction 3+ Fair+ Adduction 4 Good External Rotation 3 Fair Internal Rotation 3- Fair- Knee Strength Knee Manual Muscle Testing Right Flexion (S2) 5 Normal Extension (L3) 5 Normal Left Flexion (S2) 2+ Poor+ Extension (L3) 4 Good Comments unable to dissociate hip and knee movements; goes into knee extension AND hip extension PT-OP-Q Treatments Start: 01/19/23 09:03 Freq: Status: Active Protocol: Document 08/02/23 10:38 SP (Rec: 08/02/23 11:21 SP [id number]) Therapeutic Exercises Supine Exercises amy stretch Supine Exercise Name trialed post manual Side left Reps/Minutes 30 SH Comments good stretch Knee Flexion Supine Exercise Name Knee & hip flexion Side left Reps/Minutes 5 x2 Comments heavy cues for breathwork Hip IR/ER Supine Exercise Name Hip KFO Side left Equipment Used knee bent Reps/Minutes x10 Comments KFO ed 1st thing in AM for increase hip mobility before walking. Standing Exercises Step ups Standing Exercise Name Step-ups Side left Resistance 6 step Equipment Used Handrail RUE- light Reps/Minutes x10 TKE Standing Exercise Name TKE Side left Resistance 1 rail support, [place] TB #3 Equipment Used at bottom step rail, therapist anchored Reps/Minutes 10 sec x10 Comments cued slow control, not into hyperextension and slower eccentric flexion Gait Training Gait Activity stair mgt Description assimulation home environment Device Used 1 HR Level of Assistance SBA Distance/Duration 4 steps x3 sets Treatment Focus TKE LLE Comments R HR receiprocal ascend, step to descend L HR step to ascend, receiprocal descend *Occ cues for TKE on L and tall posturing Manual Therapy Treatment Soft Tissue Mobilization L hip flexors Body Location RF, TFL, Iliacus Mobilization Type Rolling,Sustained Pressure, Other Body Position Supine Comments STMs, MWM hip IR/ER PT-OP-T Assessment and Plan Start: 01/19/23 09:03 Freq: Status: Active Protocol: Document 08/02/23 10:38 SP (Rec: 08/02/23 11:21 SP [id number]) Physical Therapy Assessment Goals 6MWT Impairment 6MWT Impairment IE: 360 feet with SPC Short Term Goal (STG) Pt will improve 6MWT by 160 feet (MCID) to a score > 520 feet. STG Duration 09/04/23 Gun Synchronizer Goal (LTG) Pt will improve 6MWT by 320 feet (MCID) to a score > 680 feet. LTG Duration 10/03/23 stairs Impairment stair negotiation Nursing Home Goal (LTG) Pt will be able to ascend stairs with step through gait pattern and use single railing . LTG Duration MET muscle isolation Impairment muscle isolation Impairment unable to extend knee separately from hip extension Gun Synchronizer Goal (LTG) Pt will be able to perform seated knee extensions using 5 # weight without compensatory hip extension. LTG Duration 10/03/23 HEP Impairment HEP Short Term Goal (STG) Pt will report performing HEP >3 days/week. STG Duration Met Nursing Home Goal (LTG) Pt will report performing HEP >3 days/week. LTG Duration 10/03/23 Assessment Summary Assessment Pt improved graded LLE TKE during step ups, only 1 slight hyperextension demo'd. Beginning focused on releases of L hip flexor manual then end with HOs with performance LLE AROM pre getting out of bed to lessen tension prior to WB. Ed for taller posturing throughout tx for allowance TKE on LLE. Pt reported L hip flexor pain gone end tx. Physical Therapy Plan Frequency and Duration Frequency of Treatment 2x/Week Plan of Care Start Date 07/05/23 Plan of Care End Date 10/03/23 Therapeutic Interventions Therapeutic Interventions Gait Training,Home Exercise Program,Manual Therapy, Neuromuscular Re-education, Orthotic/Prosthetic Management ,Patient/Caregiver Education, Self-Care/Home Management,Soft Tissue Mobilization,Taping, Therapeutic Activities, Therapeutic Exercises Next Visit Focus/Plan Next Note Type Treatment Note Next Visit Plan Manual as needed, ask how AROM pre getting out of bed for reduction L hip flexion tightness/pain: KFO, HS, Amy stretch. POC: Continue EC balance, strengthening mechanics LLE with postural corrections to support energy conservation. POC: Balance challenges, gait/ stair training, strengthening, calf stretch prior to stagger stance sit to stand next session
--- NOTE | 2023-08-12 12:39 | PT.OTN ---
Current Diagnoses Cerebral infarction, unspecified (08/12/23) Physical Therapy Treatment Note PT-OP-A Visit Information Start: 01/19/23 09:03 Freq: Status: Active Protocol: Document 08/12/23 08:08 AB (Rec: 08/12/23 12:39 AB [id number]) Out-Patient Physical Therapy Visit Information Visit Information Visit Type Treatment Note Visit Start Time 09:49 Visit Stop Time 10:32 Visit Number 41 Number of BULK FLUIDS HANDLER Visits 2 Evaluation Information Evaluation Date 01/19/23 PT-OP-B Current Condition Start: 01/19/23 09:03 Freq: Status: Active Protocol: Document 01/19/23 13:29 ED (Rec: 01/19/23 13:41 ED [id number]) Current Condition History of Current Condition Onset Date June Current Complaints L sided hemiplegia History of Current Condition 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 He received home health and recently graduated from that. He states he wants to focus on his L UE as it has not made the same amount of progress as his L LE. He ambulates with a SPC and lives with his . he has to use the stairs constantly at home. He reports a few falls at home since the stroke. He says the only exercise he does at home currently is stairs. PT-OP-C Subjective Start: 01/19/23 09:03 Freq: Status: Active Protocol: Document 08/12/23 08:08 AB (Rec: 08/12/23 12:39 AB [id number]) OP-PT Subjective Patient Comments Patient Comments Patient reports left calf is cramping and he almost cancelled today, comments this is impacting walking and causing him to walk slower. Patient reports pain is with walking and standing not at rest, stretching helps, but has difficulty holding the stretch. Pt reports having 2 falls at sons home may have caused the calf pain post STM initiated. PT Kurtis Vila in to assess patient. PT-OP-E Functional Tests Start: 01/19/23 09:03 Freq: Status: Active Protocol: Document 07/05/23 15:15 DCW (Rec: 07/05/23 15:48 DCW [id number]) Functional Tests 6 Minute Walk Test Distance 428' Device Used SPC Comments 1.19 ft/sec Five Times Sit to Stand Test Score 21 Comments no UEs Timed Up and Go (TUG) Score 19.2 /s AD Comments Three-trial average (17.76, 19 .74, 20.14) TUG Impairment Rating 80 to <100% Impaired (Score 18 -19) PT-OP-G Mobility & Gait Start: 01/19/23 09:03 Freq: Status: Active Protocol: Document 07/05/23 15:15 DCW (Rec: 07/05/23 15:48 DCW [id number]) OP Gait Assessment Gait Gait Assistance Required: Contact Guard Assist,1 Person Assist Distance (Feet) 428 Able to Maintain Weight Bearing Status No During Gait Assistive Devices Assistive Device Gait Belt,Straight Cane Gait Deviations General Gait Pattern Antalgic,Decreased Stride Length,Decreased Feet Clearance,Lateral Trunk Lean PT-OP-M Strength Start: 01/19/23 09:03 Freq: Status: Active Protocol: Document 07/05/23 15:15 DCW (Rec: 07/05/23 15:48 DCW [id number]) Hip Strength Hip Manual Muscle Testing Right Flexion (L2) 4+ Good+ Extension (S1) 4+ Good+ Abduction 4+ Good+ Adduction 4+ Good+ External Rotation 5 Normal Internal Rotation 5 Normal Left Flexion (L2) 3+ Fair+ Extension (S1) 4 Good Abduction 3+ Fair+ Adduction 4 Good External Rotation 3 Fair Internal Rotation 3- Fair- Knee Strength Knee Manual Muscle Testing Right Flexion (S2) 5 Normal Extension (L3) 5 Normal Left Flexion (S2) 2+ Poor+ Extension (L3) 4 Good Comments unable to dissociate hip and knee movements; goes into knee extension AND hip extension PT-OP-Q Treatments Start: 01/19/23 09:03 Freq: Status: Active Protocol: Document 08/12/23 08:08 AB (Rec: 08/12/23 12:39 AB [id number]) Therapeutic Exercises Supine Exercises lower trunk rotation Equipment Used X10 Comments Verbal cues, performed to relax muscles ankle pumps Side bilateral Reps/Minutes X16 Comments with and without tactile cues nevin stretch Supine Exercise Name trialed post manual Side left Reps/Minutes 60 seconds Comments good stretch Sitting Exercises ankle PF/DF Sitting Exercise Name AROM DF Side bilateral Reps/Minutes X10 Comments post calf stretch, bilateral for carryover right to left Standing Exercises calf stretch Standing Exercise Name gastroc and soleus Side bilateral Equipment Used CHRISTIANE, rail support RUE Reps/Minutes 3x 60 each Comments verbal cues Gait Training Gait Activity ambulation with 3rd foot cane Distance/Duration 25 feet and 8 feet Comments Verbal cues to increase force on cane as needed to decrease pain left calf stance phase. Manual Therapy Treatment Soft Tissue Mobilization left calf Intensity/Depth Moderate L hip flexors Body Location RF, Iliacus Mobilization Type Cross-Friction,Rolling Body Position Hooklying PT-OP-T Assessment and Plan Start: 01/19/23 09:03 Freq: Status: Active Protocol: Document 08/12/23 08:08 AB (Rec: 08/12/23 12:39 AB [id number]) Physical Therapy Assessment Goals 6MWT Impairment 6MWT Impairment IE: 360 feet with SPC Short Term Goal (STG) Pt will improve 6MWT by 160 feet (MCID) to a score > 520 feet. STG Duration 09/04/23 Fdc Goal (LTG) Pt will improve 6MWT by 320 feet (MCID) to a score > 680 feet. LTG Duration 10/03/23 stairs Impairment stair negotiation Steam Hammer Operator Goal (LTG) Pt will be able to ascend stairs with step through gait pattern and use single railing . LTG Duration MET muscle isolation Impairment muscle isolation Impairment unable to extend knee separately from hip extension Fdc Goal (LTG) Pt will be able to perform seated knee extensions using 5 # weight without compensatory hip extension. LTG Duration 10/03/23 HEP Impairment HEP Short Term Goal (STG) Pt will report performing HEP >3 days/week. STG Duration Met Steam Hammer Operator Goal (LTG) Pt will report performing HEP >3 days/week. LTG Duration 10/03/23 Assessment Summary Assessment Patient reports the calf feels better end of session, ambulating out of session with 3rd foot cane. Physical Therapy Plan Frequency and Duration Frequency of Treatment 2x/Week Plan of Care Start Date 07/05/23 Plan of Care End Date 10/03/23 Next Visit Focus/Plan Next Note Type Treatment Note Next Visit Plan Manual as needed, ask how AROM pre getting out of bed for reduction L hip flexion tightness/pain: KFO, HS, Nevin stretch. POC: Continue EC balance, strengthening mechanics LLE with postural corrections to support energy conservation. POC: Balance challenges, gait/ stair training, strengthening, calf stretch prior to stagger stance sit to stand next session
--- NOTE | 2023-08-17 16:04 | PT.OTN ---
Current Diagnoses Cerebral infarction, unspecified (08/17/23) Physical Therapy Treatment Note PT-OP-A Visit Information Start: 01/19/23 09:03 Freq: Status: Active Protocol: Document 08/17/23 15:18 DCW (Rec: 08/17/23 16:04 DCW [id number]) Out-Patient Physical Therapy Visit Information Visit Information Visit Type Treatment Note Visit Start Time 15:18 Visit Stop Time 16:00 Visit Number 47 Number of BENZENE WASHER Visits 0 Evaluation Information Evaluation Date 01/19/23 PT-OP-B Current Condition Start: 01/19/23 09:03 Freq: Status: Active Protocol: Document 01/19/23 13:29 ED (Rec: 01/19/23 13:41 ED [id number]) Current Condition History of Current Condition Onset Date June Current Complaints L sided hemiplegia History of Current Condition 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 He received home health and recently graduated from that. He states he wants to focus on his L UE as it has not made the same amount of progress as his L LE. He ambulates with a SPC and lives with his . he has to use the stairs constantly at home. He reports a few falls at home since the stroke. He says the only exercise he does at home currently is stairs. PT-OP-C Subjective Start: 01/19/23 09:03 Freq: Status: Active Protocol: Document 08/17/23 15:18 DCW (Rec: 08/17/23 16:04 DCW [id number]) OP-PT Subjective Patient Comments Patient Comments Pt admits his calf is still giving him trouble. PT-OP-E Functional Tests Start: 01/19/23 09:03 Freq: Status: Active Protocol: Document 07/05/23 15:15 DCW (Rec: 07/05/23 15:48 DCW [id number]) Functional Tests 6 Minute Walk Test Distance 428' Device Used SPC Comments 1.19 ft/sec Five Times Sit to Stand Test Score 21 Comments no UEs Timed Up and Go (TUG) Score 19.2 /s AD Comments Three-trial average (17.76, 19 .74, 20.14) TUG Impairment Rating 80 to <100% Impaired (Score 18 -19) PT-OP-G Mobility & Gait Start: 01/19/23 09:03 Freq: Status: Active Protocol: Document 07/05/23 15:15 DCW (Rec: 07/05/23 15:48 DCW [id number]) OP Gait Assessment Gait Gait Assistance Required: Contact Guard Assist,1 Person Assist Distance (Feet) 428 Able to Maintain Weight Bearing Status No During Gait Assistive Devices Assistive Device Gait Belt,Straight Cane Gait Deviations General Gait Pattern Antalgic,Decreased Stride Length,Decreased Feet Clearance,Lateral Trunk Lean PT-OP-M Strength Start: 01/19/23 09:03 Freq: Status: Active Protocol: Document 07/05/23 15:15 DCW (Rec: 07/05/23 15:48 [facility] [id number]) Hip Strength Hip Manual Muscle Testing Right Flexion (L2) 4+ Good+ Extension (S1) 4+ Good+ Abduction 4+ Good+ Adduction 4+ Good+ External Rotation 5 Normal Internal Rotation 5 Normal Left Flexion (L2) 3+ Fair+ Extension (S1) 4 Good Abduction 3+ Fair+ Adduction 4 Good External Rotation 3 Fair Internal Rotation 3- Fair- Knee Strength Knee Manual Muscle Testing Right Flexion (S2) 5 Normal Extension (L3) 5 Normal Left Flexion (S2) 2+ Poor+ Extension (L3) 4 Good Comments unable to dissociate hip and knee movements; goes into knee extension AND hip extension PT-OP-Q Treatments Start: 01/19/23 09:03 Freq: Status: Active Protocol: Document 08/17/23 15:18 DCW (Rec: 08/17/23 16:04 DCW [id number]) Gym Equipment Shuttle Recovery Unilateral Squats Details L tactile cues Knee lat alignment, heel press asc/desc Resistance 37# (1 navy) Shuttle Recovery Platform Stable Bilateral Squats Details Adductor ball squeeze Resistance 75 # (3 navy) Shuttle Recovery Platform Stable Reps/Time x10 Therapeutic Exercises Supine Exercises ankle DF Supine Exercise Name DF stretch Side left Standing Exercises Step taps Standing Exercise Name Step taps with weight shifting Side left Equipment Used 6 step Comments cues for shifting weight in LLE Manual Therapy Treatment Soft Tissue Mobilization left calf Mobilization Type Instrument Assisted,Rolling, Sustained Pressure,Trigger Point Release Intensity/Depth Moderate Body Position Hooklying Neuro Re-Education Treatment Balance Activities Static balance Details EO/EC Surface AirEx PT-OP-T Assessment and Plan Start: 01/19/23 09:03 Freq: Status: Active Protocol: Document 08/17/23 15:18 DC (Rec: 08/17/23 16:04 [facility] [id number]) Physical Therapy Assessment Impairments Impairments Activity Tolerance,Balance, Functional Activities, Functional Mobility,Gait, Strength,Tone,Transfers Goals 6MWT Impairment 6MWT Impairment IE: 360 feet with SPC Short Term Goal (STG) Pt will improve 6MWT by 160 feet (MCID) to a score > 520 feet. STG Duration 09/04/23 Usp Goal (LTG) Pt will improve 6MWT by 320 feet (MCID) to a score > 680 feet. LTG Duration 10/03/23 stairs Impairment stair negotiation Safety Coordinator Goal (LTG) Pt will be able to ascend stairs with step through gait pattern and use single railing . LTG Duration MET muscle isolation Impairment muscle isolation Impairment unable to extend knee separately from hip extension Usp Goal (LTG) Pt will be able to perform seated knee extensions using 5 # weight without compensatory hip extension. LTG Duration 10/03/23 HEP Impairment HEP Short Term Goal (STG) Pt will report performing HEP >3 days/week. STG Duration Met Usp Goal (LTG) Pt will report performing HEP >3 days/week. LTG Duration 10/03/23 Assessment Summary Assessment Pt putting in good effort with functional mobility exercises today. Did well with toe taps and step-ups, attempting to use R UE less for support. Continued to spend some time with manual STM to decrease L calf tone following his fall last week, does appear to be improving. Physical Therapy Plan Frequency and Duration Frequency of Treatment 2x/Week Plan of Care Start Date 07/05/23 Plan of Care End Date 10/03/23 Therapeutic Interventions Therapeutic Interventions Gait Training,Home Exercise Program,Manual Therapy, Neuromuscular Re-education, Orthotic/Prosthetic Management ,Patient/Caregiver Education, Self-Care/Home Management,Soft Tissue Mobilization,Taping, Therapeutic Activities, Therapeutic Exercises Next Visit Focus/Plan Next Note Type Treatment Note Next Visit Plan Manual as needed, ask how AROM pre getting out of bed for reduction L hip flexion tightness/pain: KFO, HS, Amy stretch. POC: Continue EC balance, strengthening mechanics LLE with postural corrections to support energy conservation. POC: Balance challenges, gait/ stair training, strengthening, calf stretch prior to stagger stance sit to stand next session
--- NOTE | 2023-08-19 16:37 | PT.OTN ---
Current Diagnoses Cerebral infarction, unspecified (08/19/23) Physical Therapy Treatment Note PT-OP-A Visit Information Start: 01/19/23 09:03 Freq: Status: Active Protocol: Document 08/19/23 12:39 AB (Rec: 08/19/23 15:03 AB [id number]) Out-Patient Physical Therapy Visit Information Visit Information Visit Type Treatment Note Visit Note 11/18 for PN Visit Start Time 13:04 Visit Stop Time 13:46 Visit Number 48 Number of DUMPSTER OPERATOR Visits 1 Evaluation Information Evaluation Date 01/19/23 PT-OP-B Current Condition Start: 01/19/23 09:03 Freq: Status: Active Protocol: Document 01/19/23 13:29 ED (Rec: 01/19/23 13:41 ED [id number]) Current Condition History of Current Condition Onset Date June Current Complaints L sided hemiplegia History of Current Condition 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 He received home health and recently graduated from that. He states he wants to focus on his L UE as it has not made the same amount of progress as his L LE. He ambulates with a SPC and lives with his . he has to use the stairs constantly at home. He reports a few falls at home since the stroke. He says the only exercise he does at home currently is stairs. PT-OP-C Subjective Start: 01/19/23 09:03 Freq: Status: Active Protocol: Document 08/19/23 12:39 AB (Rec: 08/19/23 15:03 AB [id number]) OP-PT Subjective Patient Comments Patient Comments Patient reports the exercises for his hip prior to getting out of bed were helpful. Patient reports he continues to have difficulties with the left calf, comments he finds himeself standing on the ball of his foot in the morning and the calf cramping limits ability to trim his barraza. PT-OP-E Functional Tests Start: 01/19/23 09:03 Freq: Status: Active Protocol: Document 07/05/23 15:15 DCW (Rec: 07/05/23 15:48 DCW [id number]) Functional Tests 6 Minute Walk Test Distance 428' Device Used SPC Comments 1.19 ft/sec Five Times Sit to Stand Test Score 21 Comments no UEs Timed Up and Go (TUG) Score 19.2 /s AD Comments Three-trial average (17.76, 19 .74, 20.14) TUG Impairment Rating 80 to <100% Impaired (Score 18 -19) PT-OP-G Mobility & Gait Start: 01/19/23 09:03 Freq: Status: Active Protocol: Document 07/05/23 15:15 DCW (Rec: 07/05/23 15:48 DCW [id number]) OP Gait Assessment Gait Gait Assistance Required: Contact Guard Assist,1 Person Assist Distance (Feet) 428 Able to Maintain Weight Bearing Status No During Gait Assistive Devices Assistive Device Gait Belt,Straight Cane Gait Deviations General Gait Pattern Antalgic,Decreased Stride Length,Decreased Feet Clearance,Lateral Trunk Lean PT-OP-M Strength Start: 01/19/23 09:03 Freq: Status: Active Protocol: Document 07/05/23 15:15 DCW (Rec: 07/05/23 15:48 DCW [id number]) Hip Strength Hip Manual Muscle Testing Right Flexion (L2) 4+ Good+ Extension (S1) 4+ Good+ Abduction 4+ Good+ Adduction 4+ Good+ External Rotation 5 Normal Internal Rotation 5 Normal Left Flexion (L2) 3+ Fair+ Extension (S1) 4 Good Abduction 3+ Fair+ Adduction 4 Good External Rotation 3 Fair Internal Rotation 3- Fair- Knee Strength Knee Manual Muscle Testing Right Flexion (S2) 5 Normal Extension (L3) 5 Normal Left Flexion (S2) 2+ Poor+ Extension (L3) 4 Good Comments unable to dissociate hip and knee movements; goes into knee extension AND hip extension PT-OP-Q Treatments Start: 01/19/23 09:03 Freq: Status: Active Protocol: Document 08/19/23 12:39 AB (Rec: 08/19/23 15:03 AB [id number]) Therapeutic Exercises Supine Exercises amy stretch Side bilateral Reps/Minutes 60 seconds with AROM knee flexion Comments good stretch Sitting Exercises ankle PF/DF Sitting Exercise Name AROM DF Side bilateral Reps/Minutes X15 Comments post calf stretch, bilateral for carryover right to left Standing Exercises side stepping Side bilateral Reps/Minutes 10 feet X 4 left Comments VC to avoid toeing out, tapping to facilitate quad L ankle & knee mobility Standing Exercise Name trialed Side left Resistance foot on 16box, R rail side stair trunk stability support Equipment Used therapist supported knee alignment Reps/Minutes 4 reps x10 sec hold Comments post calf stretching, improved knee flexion and ankle DF calf stretch Standing Exercise Name gastroc and soleus Side bilateral Equipment Used CHRISTIANE, rail support RUE Reps/Minutes 3x 60 each Comments verbal cues Other Exercises Sit to stand Other Exercise Name CGA Side bilateral Reps/Minutes 3 x 10 Comments stagger stance left Le back> alignment Manual Therapy Treatment Soft Tissue Mobilization left calf Mobilization Type Cross-Friction,Rolling, Sustained Pressure Intensity/Depth Moderate Body Position Hooklying PT-OP-T Assessment and Plan Start: 01/19/23 09:03 Freq: Status: Active Protocol: Document 08/19/23 12:39 AB (Rec: 08/19/23 15:03 AB [id number]) Physical Therapy Assessment Goals 6MWT Impairment 6MWT Impairment IE: 360 feet with SPC Short Term Goal (STG) Pt will improve 6MWT by 160 feet (MCID) to a score > 520 feet. STG Duration 09/04/23 Lithographic General Worker Goal (LTG) Pt will improve 6MWT by 320 feet (MCID) to a score > 680 feet. LTG Duration 10/03/23 stairs Impairment stair negotiation Shelter Goal (LTG) Pt will be able to ascend stairs with step through gait pattern and use single railing . LTG Duration MET muscle isolation Impairment muscle isolation Impairment unable to extend knee separately from hip extension Shelter Goal (LTG) Pt will be able to perform seated knee extensions using 5 # weight without compensatory hip extension. LTG Duration 10/03/23 HEP Impairment HEP Short Term Goal (STG) Pt will report performing HEP >3 days/week. STG Duration Met Shelter Goal (LTG) Pt will report performing HEP >3 days/week. LTG Duration 10/03/23 Assessment Summary Assessment Kari reports he feels much better, can feel his foot on the floor vs ball of foot. Physical Therapy Plan Frequency and Duration Frequency of Treatment 2x/Week Plan of Care Start Date 07/05/23 Plan of Care End Date 10/03/23 Next Visit Focus/Plan Next Note Type Treatment Note Next Visit Plan Manual as needed, : KFO, HS, Amy stretch. POC: Continue EC balance, strengthening mechanics LLE with postural corrections to support energy conservation. POC: Balance challenges, gait/ stair training, strengthening, calf stretch prior to stagger stance sit to stand next session
--- NOTE | 2023-08-22 15:58 | PT.OTN ---
Current Diagnoses Cerebral infarction, unspecified (08/22/23) Physical Therapy Treatment Note PT-OP-A Visit Information Start: 01/19/23 09:03 Freq: Status: Active Protocol: Document 08/22/23 15:16 DCW (Rec: 08/22/23 15:57 DCW [id number]) Out-Patient Physical Therapy Visit Information Visit Information Visit Type Progress Note Visit Start Time 15:16 Visit Stop Time 16:00 Visit Number 49 Number of BACK TUFTER Visits 0 Evaluation Information Evaluation Date 01/19/23 PT-OP-B Current Condition Start: 01/19/23 09:03 Freq: Status: Active Protocol: Document 01/19/23 13:29 ED (Rec: 01/19/23 13:41 ED [id number]) Current Condition History of Current Condition Onset Date June Current Complaints L sided hemiplegia History of Current Condition 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 He received home health and recently graduated from that. He states he wants to focus on his L UE as it has not made the same amount of progress as his L LE. He ambulates with a SPC and lives with his . he has to use the stairs constantly at home. He reports a few falls at home since the stroke. He says the only exercise he does at home currently is stairs. PT-OP-C Subjective Start: 01/19/23 09:03 Freq: Status: Active Protocol: Document 08/22/23 15:16 DCW (Rec: 08/22/23 15:58 DCW [id number]) OP-PT Subjective Patient Comments Patient Comments Reports his calf is still sore , but improving. PT-OP-E Functional Tests Start: 01/19/23 09:03 Freq: Status: Active Protocol: Document 07/05/23 15:15 DCW (Rec: 07/05/23 15:48 DCW [id number]) Functional Tests 6 Minute Walk Test Distance 428' Device Used SPC Comments 1.19 ft/sec Five Times Sit to Stand Test Score 21 Comments no UEs Timed Up and Go (TUG) Score 19.2 /s AD Comments Three-trial average (17.76, 19 .74, 20.14) TUG Impairment Rating 80 to <100% Impaired (Score 18 -19) PT-OP-G Mobility & Gait Start: 01/19/23 09:03 Freq: Status: Active Protocol: Document 07/05/23 15:15 DCW (Rec: 07/05/23 15:48 DCW [id number]) OP Gait Assessment Gait Gait Assistance Required: Contact Guard Assist,1 Person Assist Distance (Feet) 428 Able to Maintain Weight Bearing Status No During Gait Assistive Devices Assistive Device Gait Belt,Straight Cane Gait Deviations General Gait Pattern Antalgic,Decreased Stride Length,Decreased Feet Clearance,Lateral Trunk Lean PT-OP-M Strength Start: 01/19/23 09:03 Freq: Status: Active Protocol: Document 07/05/23 15:15 DCW (Rec: 07/05/23 15:48 DCW [id number]) Hip Strength Hip Manual Muscle Testing Right Flexion (L2) 4+ Good+ Extension (S1) 4+ Good+ Abduction 4+ Good+ Adduction 4+ Good+ External Rotation 5 Normal Internal Rotation 5 Normal Left Flexion (L2) 3+ Fair+ Extension (S1) 4 Good Abduction 3+ Fair+ Adduction 4 Good External Rotation 3 Fair Internal Rotation 3- Fair- Knee Strength Knee Manual Muscle Testing Right Flexion (S2) 5 Normal Extension (L3) 5 Normal Left Flexion (S2) 2+ Poor+ Extension (L3) 4 Good Comments unable to dissociate hip and knee movements; goes into knee extension AND hip extension PT-OP-Q Treatments Start: 01/19/23 09:03 Freq: Status: Active Protocol: Document 08/22/23 15:16 DCW (Rec: 08/22/23 15:57 DCW [id number]) Gym Equipment Shuttle Recovery Unilateral Squats Details L tactile cues Knee lat alignment, heel press asc/desc Resistance 37# (1 navy) Shuttle Recovery Platform Stable Bilateral Squats Details Adductor ball squeeze Resistance 75 # (3 navy) Shuttle Recovery Platform Stable Reps/Time x10 Therapeutic Exercises Sitting Exercises seated hamstring stretch Side left Reps/Minutes 60 seconds X 2 Comments prior to step ups ankle PF/DF Sitting Exercise Name PROM DF Side bilateral Reps/Minutes X15 Comments calf stretch, bilateral for carryover right to left Standing Exercises side stepping Side bilateral Reps/Minutes 10 feet X 4 left Comments VC to avoid toeing out Other Exercises Lunge Other Exercise Name Step Lunge Side bilateral Manual Therapy Treatment Soft Tissue Mobilization left calf Mobilization Type Cross-Friction,Rolling, Sustained Pressure Intensity/Depth Moderate Body Position Hooklying PT-OP-T Assessment and Plan Start: 01/19/23 09:03 Freq: Status: Active Protocol: Document 08/22/23 15:16 DCW (Rec: 08/22/23 15:57 DCW [id number]) Physical Therapy Assessment Impairments Impairments Activity Tolerance,Balance, Functional Activities, Functional Mobility,Gait, Strength,Tone,Transfers Goals 6MWT Impairment 6MWT Impairment IE: 360 feet with SPC Short Term Goal (STG) Pt will improve 6MWT by 160 feet (MCID) to a score > 520 feet. STG Duration 09/04/23 Associate Sales Representative Goal (LTG) Pt will improve 6MWT by 320 feet (MCID) to a score > 680 feet. LTG Duration 10/03/23 stairs Impairment stair negotiation Mcfp Goal (LTG) Pt will be able to ascend stairs with step through gait pattern and use single railing . LTG Duration MET muscle isolation Impairment muscle isolation Impairment unable to extend knee separately from hip extension Associate Sales Representative Goal (LTG) Pt will be able to perform seated knee extensions using 5 # weight without compensatory hip extension. LTG Duration 10/03/23 HEP Impairment HEP Short Term Goal (STG) Pt will report performing HEP >3 days/week. STG Duration Met Mcfp Goal (LTG) Pt will report performing HEP >3 days/week. LTG Duration 10/03/23 Assessment Summary Assessment Continues to struggle a little bit more with gait due to ongoing calf tightness causing difficulty with heel strike. Otherwise, is showing some improvement with gait speed. Pt admits difficulty with activity tolerance. Continue to focus on gait and balance, doing well with HEP. Physical Therapy Plan Frequency and Duration Frequency of Treatment 2x/Week Plan of Care Start Date 07/05/23 Plan of Care End Date 10/03/23 Therapeutic Interventions Therapeutic Interventions Gait Training,Home Exercise Program,Manual Therapy, Neuromuscular Re-education, Orthotic/Prosthetic Management ,Patient/Caregiver Education, Self-Care/Home Management,Soft Tissue Mobilization,Taping, Therapeutic Activities, Therapeutic Exercises Next Visit Focus/Plan Next Note Type Treatment Note Next Visit Plan Manual as needed, ask how AROM pre getting out of bed for reduction L hip flexion tightness/pain: KFO, HS, Amy stretch. POC: Continue EC balance, strengthening mechanics LLE with postural corrections to support energy conservation. POC: Balance challenges, gait/ stair training, strengthening, calf stretch prior to stagger stance sit to stand next session
--- NOTE | 2023-08-24 16:15 | PT.OTN ---
Current Diagnoses Cerebral infarction, unspecified (08/24/23) Physical Therapy Treatment Note PT-OP-A Visit Information Start: 01/19/23 09:03 Freq: Status: Active Protocol: Document 08/24/23 15:16 AB (Rec: 08/24/23 16:15 AB [id number]) Out-Patient Physical Therapy Visit Information Visit Information Visit Type Treatment Note Visit Start Time 15:17 Visit Stop Time 16:01 Visit Number 50 Number of CASINO BEVERAGE SERVER Visits 1 Evaluation Information Evaluation Date 01/19/23 PT-OP-B Current Condition Start: 01/19/23 09:03 Freq: Status: Active Protocol: Document 01/19/23 13:29 ED (Rec: 01/19/23 13:41 ED [id number]) Current Condition History of Current Condition Onset Date June Current Complaints L sided hemiplegia History of Current Condition 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 He received home health and recently graduated from that. He states he wants to focus on his L UE as it has not made the same amount of progress as his L LE. He ambulates with a SPC and lives with his . he has to use the stairs constantly at home. He reports a few falls at home since the stroke. He says the only exercise he does at home currently is stairs. PT-OP-C Subjective Start: 01/19/23 09:03 Freq: Status: Active Protocol: Document 08/24/23 15:16 AB (Rec: 08/24/23 16:15 AB [id number]) OP-PT Subjective Patient Comments Patient Comments Patient reports continued difficulty with heel strike during ambulation and the calf feels like he is on it all the time and it is tightening up. PT-OP-E Functional Tests Start: 01/19/23 09:03 Freq: Status: Active Protocol: Document 07/05/23 15:15 DCW (Rec: 07/05/23 15:48 DCW [id number]) Functional Tests 6 Minute Walk Test Distance 428' Device Used SPC Comments 1.19 ft/sec Five Times Sit to Stand Test Score 21 Comments no UEs Timed Up and Go (TUG) Score 19.2 /s AD Comments Three-trial average (17.76, 19 .74, 20.14) TUG Impairment Rating 80 to <100% Impaired (Score 18 -19) PT-OP-G Mobility & Gait Start: 01/19/23 09:03 Freq: Status: Active Protocol: Document 07/05/23 15:15 DCW (Rec: 07/05/23 15:48 DCW [id number]) OP Gait Assessment Gait Gait Assistance Required: Contact Guard Assist,1 Person Assist Distance (Feet) 428 Able to Maintain Weight Bearing Status No During Gait Assistive Devices Assistive Device Gait Belt,Straight Cane Gait Deviations General Gait Pattern Antalgic,Decreased Stride Length,Decreased Feet Clearance,Lateral Trunk Lean PT-OP-M Strength Start: 01/19/23 09:03 Freq: Status: Active Protocol: Document 07/05/23 15:15 DCW (Rec: 07/05/23 15:48 DCW [id number]) Hip Strength Hip Manual Muscle Testing Right Flexion (L2) 4+ Good+ Extension (S1) 4+ Good+ Abduction 4+ Good+ Adduction 4+ Good+ External Rotation 5 Normal Internal Rotation 5 Normal Left Flexion (L2) 3+ Fair+ Extension (S1) 4 Good Abduction 3+ Fair+ Adduction 4 Good External Rotation 3 Fair Internal Rotation 3- Fair- Knee Strength Knee Manual Muscle Testing Right Flexion (S2) 5 Normal Extension (L3) 5 Normal Left Flexion (S2) 2+ Poor+ Extension (L3) 4 Good Comments unable to dissociate hip and knee movements; goes into knee extension AND hip extension PT-OP-Q Treatments Start: 01/19/23 09:03 Freq: Status: Active Protocol: Document 08/24/23 15:16 AB (Rec: 08/24/23 16:15 AB [id number]) Therapeutic Exercises Supine Exercises amy stretch Side left Reps/Minutes 60 seconds with AROM knee flexion Standing Exercises retro stepping Standing Exercise Name CGA Reps/Minutes 15 feet X 2 Comments 3rd foot cane used calf stretch Standing Exercise Name gastroc and soleus Side bilateral Equipment Used CHRISTIANE, rail support RUE Reps/Minutes 3x 60 each Comments verbal cues Step ups Standing Exercise Name Step-ups Side left Resistance on scale Equipment Used using 3rd pt cane Reps/Minutes x10 Comments to 160 lb Other Exercises Sit to stand Other Exercise Name CGA Side bilateral Reps/Minutes 10 Comments stagger stance left Le back> tact cues for knee alignment Gait Training Gait Activity ambulation with 3rd foot cane Distance/Duration 12 feet X 3 Comments ambulating between tasks, VC for posture, facilitation at left glut and pelvis for swing phase, VC to increase stance time left LE Manual Therapy Treatment Soft Tissue Mobilization left calf Mobilization Type Cross-Friction,Rolling, Sustained Pressure Intensity/Depth Moderate Body Position Hooklying Manual Techniques Stretching Type LLE Body Location hamstring Reps/Duration contract relax with one min hold X 2 PT-OP-T Assessment and Plan Start: 01/19/23 09:03 Freq: Status: Active Protocol: Document 08/24/23 15:16 AB (Rec: 08/24/23 16:15 AB [id number]) Physical Therapy Assessment Goals 6MWT Impairment 6MWT Impairment IE: 360 feet with SPC Short Term Goal (STG) Pt will improve 6MWT by 160 feet (MCID) to a score > 520 feet. STG Duration 09/04/23 Die Setter Goal (LTG) Pt will improve 6MWT by 320 feet (MCID) to a score > 680 feet. LTG Duration 10/03/23 stairs Impairment stair negotiation Die Setter Goal (LTG) Pt will be able to ascend stairs with step through gait pattern and use single railing . LTG Duration MET muscle isolation Impairment muscle isolation Impairment unable to extend knee separately from hip extension [facility] Goal (LTG) Pt will be able to perform seated knee extensions using 5 # weight without compensatory hip extension. LTG Duration 10/03/23 HEP Impairment HEP Short Term Goal (STG) Pt will report performing HEP >3 days/week. STG Duration Met [facility] Goal (LTG) Pt will report performing HEP >3 days/week. LTG Duration 10/03/23 Physical Therapy Plan Frequency and Duration Frequency of Treatment 2x/Week Plan of Care Start Date 07/05/23 Plan of Care End Date 10/03/23 Next Visit Focus/Plan Next Note Type Treatment Note Next Visit Plan Manual as needed, KFO, HS, Amy stretch. POC: Continue EC balance, strengthening mechanics LLE with postural corrections to support energy conservation. POC: Balance challenges, gait/ stair training, strengthening, calf stretch prior to stagger stance sit to stand next session
--- NOTE | 2023-08-29 16:00 | PT.OTN ---
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 He received home health and recently graduated from that. He states he wants to focus on his L UE as it has not made the same amount of progress as his L LE. He ambulates with a SPC and lives with his . he has to use the stairs constantly at home. He reports a few falls at home since the stroke. He says the only exercise he does at home currently is stairs. PT-OP-C Subjective Start: 01/19/23 09:03 Freq: Status: Active Protocol: Document 08/29/23 15:17 DCW (Rec: 08/29/23 16:00 DCW [id number]) OP-PT Subjective Patient Comments Patient Comments Pt still struggling with his calf. Has appt with PCP upcoming this week, plans to discuss with him. PT-OP-E Functional Tests Start: 01/19/23 09:03 Freq: Status: Active Protocol: Document 07/05/23 15:15 DCW (Rec: 07/05/23 15:48 DCW [id number]) Functional Tests 6 Minute Walk Test Distance 428' Device Used SPC Comments 1.19 ft/sec Five Times Sit to Stand Test Score 21 Comments no UEs Timed Up and Go (TUG) Score 19.2 /s AD Comments Three-trial average (17.76, 19 .74, 20.14) TUG Impairment Rating 80 to <100% Impaired (Score 18 -19) PT-OP-G Mobility & Gait Start: 01/19/23 09:03 Freq: Status: Active Protocol: Document 07/05/23 15:15 DCW (Rec: 07/05/23 15:48 DCW [id number]) OP Gait Assessment Gait Gait Assistance Required: Contact Guard Assist,1 Person Assist Distance (Feet) 428 Able to Maintain Weight Bearing Status No During Gait Assistive Devices Assistive Device Gait Belt,Straight Cane Gait Deviations General Gait Pattern Antalgic,Decreased Stride Length,Decreased Feet Clearance,Lateral Trunk Lean PT-OP-M Strength Start: 01/19/23 09:03 Freq: Status: Active Protocol: Document 07/05/23 15:15 DCW (Rec: 07/05/23 15:48 DCW [id number]) Hip Strength Hip Manual Muscle Testing Right Flexion (L2) 4+ Good+ Extension (S1) 4+ Good+ Abduction 4+ Good+ Adduction 4+ Good+ External Rotation 5 Normal Internal Rotation 5 Normal Left Flexion (L2) 3+ Fair+ Extension (S1) 4 Good Abduction 3+ Fair+ Adduction 4 Good External Rotation 3 Fair Internal Rotation 3- Fair- Knee Strength Knee Manual Muscle Testing Right Flexion (S2) 5 Normal Extension (L3) 5 Normal Left Flexion (S2) 2+ Poor+ Extension (L3) 4 Good Comments unable to dissociate hip and knee movements; goes into knee extension AND hip extension PT-OP-Q Treatments Start: 01/19/23 09:03 Freq: Status: Active Protocol: Document 08/29/23 15:17 DCW (Rec: 08/29/23 16:00 DCW [id number]) Manual Therapy Treatment Soft Tissue Mobilization left calf Mobilization Type Cross-Friction,Rolling, Sustained Pressure Intensity/Depth Moderate Body Position Hooklying Manual Techniques Stretching Type LLE Body Location hamstring, calf Neuro Re-Education Treatment Balance Activities Ball hit Details Ball hit with [place] paddle Comments PickleBall practice stagger stance Details Long Tandem Equipment Two AirEx Tandem Stance Details Tandem Stance Equipment // bars Comments CGA with eyes open and eyes closed Static balance Details EO/EC Surface AirEx PT-OP-T Assessment and Plan Start: 01/19/23 09:03 Freq: Status: Active Protocol: Document 08/29/23 15:17 DCW (Rec: 08/29/23 16:00 DCW [id number]) Physical Therapy Assessment Impairments Impairments Activity Tolerance,Balance, Functional Activities, Functional Mobility,Gait, Strength,Tone,Transfers Goals 6MWT Impairment 6MWT Impairment IE: 360 feet with SPC Short Term Goal (STG) Pt will improve 6MWT by 160 feet (MCID) to a score > 520 feet. STG Duration 09/04/23 Office Mover Goal (LTG) Pt will improve 6MWT by 320 feet (MCID) to a score > 680 feet. LTG Duration 10/03/23 stairs Impairment stair negotiation Snf Goal (LTG) Pt will be able to ascend stairs with step through gait pattern and use single railing . LTG Duration MET muscle isolation Impairment muscle isolation Impairment unable to extend knee separately from hip extension Snf Goal (LTG) Pt will be able to perform seated knee extensions using 5 # weight without compensatory hip extension. LTG Duration 10/03/23 HEP Impairment HEP Short Term Goal (STG) Pt will report performing HEP >3 days/week. STG Duration Met Snf Goal (LTG) Pt will report performing HEP >3 days/week. LTG Duration 10/03/23 Assessment Summary Assessment Trial of hitting ball with paddle for pickle ball practice. Pt tolerated well. Continue with balance challenges and coordination training. Physical Therapy Plan Frequency and Duration Frequency of Treatment 2x/Week Plan of Care Start Date 07/05/23 Plan of Care End Date 10/03/23 Therapeutic Interventions Therapeutic Interventions Gait Training,Home Exercise Program,Manual Therapy, Neuromuscular Re-education, Orthotic/Prosthetic Management ,Patient/Caregiver Education, Self-Care/Home Management,Soft Tissue Mobilization,Taping, Therapeutic Activities, Therapeutic Exercises Next Visit Focus/Plan Next Note Type Treatment Note Next Visit Plan Manual as needed, STAN CHAMORRO, Amy kohler. POC: Continue EC balance, strengthening mechanics LLE with postural corrections to support energy conservation. POC: Balance challenges, gait/ stair training, strengthening, calf stretch prior to stagger stance sit to stand next session
--- NOTE | 2023-08-31 16:01 | PT.OTN ---
Current Diagnoses Cerebral infarction, unspecified (08/31/23) Physical Therapy Treatment Note PT-OP-A Visit Information Start: 01/19/23 09:03 Freq: Status: Active Protocol: Document 08/31/23 15:18 DCW (Rec: 08/31/23 16:01 DCW [id number]) Out-Patient Physical Therapy Visit Information Visit Information Visit Type Treatment Note Visit Start Time 15:18 Visit Stop Time 16:00 Visit Number 52 Number of RECORDS CLERK Visits 0 Evaluation Information Evaluation Date 01/19/23 PT-OP-B Current Condition Start: 01/19/23 09:03 Freq: Status: Active Protocol: Document 01/19/23 13:29 ED (Rec: 01/19/23 13:41 ED [id number]) Current Condition History of Current Condition Onset Date June Current Complaints L sided hemiplegia History of Current Condition 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 He received home health and recently graduated from that. He states he wants to focus on his L UE as it has not made the same amount of progress as his L LE. He ambulates with a SPC and lives with his . he has to use the stairs constantly at home. He reports a few falls at home since the stroke. He says the only exercise he does at home currently is stairs. PT-OP-C Subjective Start: 01/19/23 09:03 Freq: Status: Active Protocol: Document 08/31/23 15:18 DCW (Rec: 08/31/23 16:01 DCW [id number]) OP-PT Subjective Patient Comments Patient Comments Pt reports he ditched the cane for the remainder of the day following his last visit, until I got tired. PT-OP-E Functional Tests Start: 01/19/23 09:03 Freq: Status: Active Protocol: Document 07/05/23 15:15 DCW (Rec: 07/05/23 15:48 DCW [id number]) Functional Tests 6 Minute Walk Test Distance 428' Device Used SPC Comments 1.19 ft/sec Five Times Sit to Stand Test Score 21 Comments no UEs Timed Up and Go (TUG) Score 19.2 /s AD Comments Three-trial average (17.76, 19 .74, 20.14) TUG Impairment Rating 80 to <100% Impaired (Score 18 -19) PT-OP-G Mobility & Gait Start: 01/19/23 09:03 Freq: Status: Active Protocol: Document 07/05/23 15:15 DCW (Rec: 07/05/23 15:48 DCW [id number]) OP Gait Assessment Gait Gait Assistance Required: Contact Guard Assist,1 Person Assist Distance (Feet) 428 Able to Maintain Weight Bearing Status No During Gait Assistive Devices Assistive Device Gait Belt,Straight Cane Gait Deviations General Gait Pattern Antalgic,Decreased Stride Length,Decreased Feet Clearance,Lateral Trunk Lean PT-OP-M Strength Start: 01/19/23 09:03 Freq: Status: Active Protocol: Document 07/05/23 15:15 DCW (Rec: 07/05/23 15:48 DCW [id number]) Hip Strength Hip Manual Muscle Testing Right Flexion (L2) 4+ Good+ Extension (S1) 4+ Good+ Abduction 4+ Good+ Adduction 4+ Good+ External Rotation 5 Normal Internal Rotation 5 Normal Left Flexion (L2) 3+ Fair+ Extension (S1) 4 Good Abduction 3+ Fair+ Adduction 4 Good External Rotation 3 Fair Internal Rotation 3- Fair- Knee Strength Knee Manual Muscle Testing Right Flexion (S2) 5 Normal Extension (L3) 5 Normal Left Flexion (S2) 2+ Poor+ Extension (L3) 4 Good Comments unable to dissociate hip and knee movements; goes into knee extension AND hip extension PT-OP-Q Treatments Start: 01/19/23 09:03 Freq: Status: Active Protocol: Document 08/31/23 15:18 DCW (Rec: 08/31/23 16:01 DCW [id number]) Gym Equipment Shuttle Recovery Unilateral Squats Details L tactile cues Knee lat alignment, heel press asc/desc Resistance 37# (1 navy) Shuttle Recovery Platform Stable Bilateral Squats Details Adductor ball squeeze Resistance 75 # (3 navy) Shuttle Recovery Platform Stable Reps/Time x10 Shuttle Balance Red Details WBOS Therapeutic Exercises Standing Exercises calf stretch Standing Exercise Name gastroc and soleus Side bilateral Equipment Used CHRISTIANE, rail support RUE Reps/Minutes 3x 60 each Comments verbal cues Manual Therapy Treatment Soft Tissue Mobilization left calf Mobilization Type Cross-Friction,Rolling, Sustained Pressure Intensity/Depth Moderate Body Position Sitting Manual Techniques Stretching Type LLE Body Location hamstring, calf Neuro Re-Education Treatment Balance Activities Ball hit Details Ball hit with Badminton paddle Comments PickleBall practice PT-OP-T Assessment and Plan Start: 01/19/23 09:03 Freq: Status: Active Protocol: Document 08/31/23 15:18 DC (Rec: 08/31/23 16:01 [facility] [id number]) Physical Therapy Assessment Impairments Impairments Activity Tolerance,Balance, Functional Activities, Functional Mobility,Gait, Strength,Tone,Transfers Goals 6MWT Impairment 6MWT Impairment IE: 360 feet with SPC Short Term Goal (STG) Pt will improve 6MWT by 160 feet (MCID) to a score > 520 feet. STG Duration 09/04/23 Pedicurist Goal (LTG) Pt will improve 6MWT by 320 feet (MCID) to a score > 680 feet. LTG Duration 10/03/23 stairs Impairment stair negotiation Pedicurist Goal (LTG) Pt will be able to ascend stairs with step through gait pattern and use single railing . LTG Duration MET muscle isolation Impairment muscle isolation Impairment unable to extend knee separately from hip extension Pedicurist Goal (LTG) Pt will be able to perform seated knee extensions using 5 # weight without compensatory hip extension. LTG Duration 10/03/23 HEP Impairment HEP Short Term Goal (STG) Pt will report performing HEP >3 days/week. STG Duration Met Pedicurist Goal (LTG) Pt will report performing HEP >3 days/week. LTG Duration 10/03/23 Assessment Summary Assessment Pt showed good response to new activities, was a little hesitant with Shuttle Balance, but did well WBOS. Continues to show good stability, although minimal weight-shift, with Badminton racquet. Physical Therapy Plan Frequency and Duration Frequency of Treatment 2x/Week Plan of Care Start Date 07/05/23 Plan of Care End Date 10/03/23 Therapeutic Interventions Therapeutic Interventions Gait Training,Home Exercise Program,Manual Therapy, Neuromuscular Re-education, Orthotic/Prosthetic Management ,Patient/Caregiver Education, Self-Care/Home Management,Soft Tissue Mobilization,Taping, Therapeutic Activities, Therapeutic Exercises Next Visit Focus/Plan Next Note Type Treatment Note Next Visit Plan Manual as needed, KFO, HS, Amy stretch. POC: Continue EC balance, strengthening mechanics LLE with postural corrections to support energy conservation. POC: Balance challenges, gait/ stair training, strengthening, calf stretch prior to stagger stance sit to stand next session
--- NOTE | 2023-09-06 16:21 | PT.OTN ---
Current Diagnoses Cerebral infarction, unspecified (09/06/23) Physical Therapy Treatment Note PT-OP-A Visit Information Start: 01/19/23 09:03 Freq: Status: Active Protocol: Document 09/06/23 15:23 AB (Rec: 09/06/23 16:21 AB [id number]) Out-Patient Physical Therapy Visit Information Visit Information Visit Type Treatment Note Visit Start Time 15:23 Visit Stop Time 16:06 Visit Number 53 Number of NON LINEAR EDITOR Visits 1 Evaluation Information Evaluation Date 01/19/23 PT-OP-B Current Condition Start: 01/19/23 09:03 Freq: Status: Active Protocol: Document 01/19/23 13:29 ED (Rec: 01/19/23 13:41 ED [id number]) Current Condition History of Current Condition Onset Date June Current Complaints L sided hemiplegia History of Current Condition 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 He received home health and recently graduated from that. He states he wants to focus on his L UE as it has not made the same amount of progress as his L LE. He ambulates with a SPC and lives with his . he has to use the stairs constantly at home. He reports a few falls at home since the stroke. He says the only exercise he does at home currently is stairs. PT-OP-C Subjective Start: 01/19/23 09:03 Freq: Status: Active Protocol: Document 09/06/23 15:23 AB (Rec: 09/06/23 16:21 AB [id number]) OP-PT Subjective Patient Comments Patient Comments Patient into session with pickle ball paddle and balls. Patient request practice without use of SPC for balance training. Patient reports the calf is feeling better, is not realling cramping today. PT-OP-E Functional Tests Start: 01/19/23 09:03 Freq: Status: Active Protocol: Document 07/05/23 15:15 DCW (Rec: 07/05/23 15:48 DCW [id number]) Functional Tests 6 Minute Walk Test Distance 428' Device Used SPC Comments 1.19 ft/sec Five Times Sit to Stand Test Score 21 Comments no UEs Timed Up and Go (TUG) Score 19.2 /s AD Comments Three-trial average (17.76, 19 .74, 20.14) TUG Impairment Rating 80 to <100% Impaired (Score 18 -19) PT-OP-G Mobility & Gait Start: 01/19/23 09:03 Freq: Status: Active Protocol: Document 07/05/23 15:15 DCW (Rec: 07/05/23 15:48 DCW [id number]) OP Gait Assessment Gait Gait Assistance Required: Contact Guard Assist,1 Person Assist Distance (Feet) 428 Able to Maintain Weight Bearing Status No During Gait Assistive Devices Assistive Device Gait Belt,Straight Cane Gait Deviations General Gait Pattern Antalgic,Decreased Stride Length,Decreased Feet Clearance,Lateral Trunk Lean PT-OP-M Strength Start: 01/19/23 09:03 Freq: Status: Active Protocol: Document 07/05/23 15:15 DCW (Rec: 07/05/23 15:48 DCW [id number]) Hip Strength Hip Manual Muscle Testing Right Flexion (L2) 4+ Good+ Extension (S1) 4+ Good+ Abduction 4+ Good+ Adduction 4+ Good+ External Rotation 5 Normal Internal Rotation 5 Normal Left Flexion (L2) 3+ Fair+ Extension (S1) 4 Good Abduction 3+ Fair+ Adduction 4 Good External Rotation 3 Fair Internal Rotation 3- Fair- Knee Strength Knee Manual Muscle Testing Right Flexion (S2) 5 Normal Extension (L3) 5 Normal Left Flexion (S2) 2+ Poor+ Extension (L3) 4 Good Comments unable to dissociate hip and knee movements; goes into knee extension AND hip extension PT-OP-Q Treatments Start: 01/19/23 09:03 Freq: Status: Active Protocol: Document 09/06/23 15:23 AB (Rec: 09/06/23 16:21 AB [id number]) Therapeutic Exercises Supine Exercises ankle DF Supine Exercise Name AROM Side bilateral Reps/Minutes X4 trials Comments in standing with UE support, unable Sitting Exercises ankle PF/DF Sitting Exercise Name AROM post stretch Side bilateral Reps/Minutes X15 X 2 Comments second bout post increasing knee flexion Standing Exercises calf stretch Standing Exercise Name gastroc and soleus Side bilateral Equipment Used CHRISTIANE, rail support RUE Reps/Minutes 3x 60 each Comments verbal cues Step ups Standing Exercise Name Step-ups Side left Resistance on scale Equipment Used with UE support Reps/Minutes x10 X2 Comments to 190 lb, VC to fully extend knee, tapping to faciliate quad Neuro Re-Education Treatment Balance Activities wall fall Reps/Duration X20 Comments pillow behind back, to mimic hip strategy and increased DF post stretch Ball hit Details with pickle ball paddle and balls Comments 2 bouts, in WBOS, stagger stance and stepping right then stepping left prior to hitting ball CGA to very minimal assist with step left when fatigued. PT-OP-T Assessment and Plan Start: 01/19/23 09:03 Freq: Status: Active Protocol: Document 09/06/23 15:23 AB (Rec: 09/06/23 16:21 AB [id number]) Physical Therapy Assessment Goals 6MWT Impairment 6MWT Impairment IE: 360 feet with SPC Short Term Goal (STG) Pt will improve 6MWT by 160 feet (MCID) to a score > 520 feet. STG Duration 09/04/[address] [employer] Goal (LTG) Pt will improve 6MWT by 320 feet (MCID) to a score > 680 feet. LTG Duration 10/03/23 stairs Impairment stair negotiation [employer] [address] [address] [employer] Goal (LTG) Pt will be able to ascend stairs with step through gait pattern and use single railing . LTG Duration MET muscle isolation Impairment muscle isolation Impairment unable to extend knee separately from hip extension [employer] [address] [address] [employer] Goal (LTG) Pt will be able to perform seated knee extensions using 5 # weight without compensatory hip extension. LTG Duration 10/03/23 HEP Impairment HEP Short Term Goal (STG) Pt will report performing HEP >3 days/week. STG Duration Met [employer] [address] [address] [employer] Goal (LTG) Pt will report performing HEP >3 days/week. LTG Duration 10/03/23 Assessment Summary Assessment Good response to stepping prior to hitting ball, but fatigues quickly with stepping to the left. Physical Therapy Plan Frequency and Duration Frequency of Treatment 2x/Week Plan of Care Start Date 07/05/23 Plan of Care End Date 10/03/23 Next Visit Focus/Plan Next Note Type Treatment Note Next Visit Plan Manual as needed, KFO, HS, Amy stretch. POC: Continue EC balance, strengthening mechanics LLE with postural corrections to support energy conservation. POC: Balance challenges, gait/ stair training, strengthening, calf stretch prior to stagger stance sit to stand next session, retro stepping hands above bars
--- NOTE | 2023-09-08 16:01 | PT.OTN ---
Current Diagnoses Cerebral infarction, unspecified (09/08/23) Physical Therapy Treatment Note PT-OP-A Visit Information Start: 01/19/23 09:03 Freq: Status: Active Protocol: Document 09/08/23 15:18 DCW (Rec: 09/08/23 16:01 DCW [id number]) Out-Patient Physical Therapy Visit Information Visit Information Visit Type Treatment Note Visit Start Time 15:18 Visit Stop Time 16:00 Visit Number 54 Number of CLIENT RELATIONS SPECIALIST Visits 0 Evaluation Information Evaluation Date 01/19/23 PT-OP-B Current Condition Start: 01/19/23 09:03 Freq: Status: Active Protocol: Document 01/19/23 13:29 ED (Rec: 01/19/23 13:41 ED [id number]) Current Condition History of Current Condition Onset Date June Current Complaints L sided hemiplegia History of Current Condition 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 He received home health and recently graduated from that. He states he wants to focus on his L UE as it has not made the same amount of progress as his L LE. He ambulates with a SPC and lives with his . he has to use the stairs constantly at home. He reports a few falls at home since the stroke. He says the only exercise he does at home currently is stairs. PT-OP-C Subjective Start: 01/19/23 09:03 Freq: Status: Active Protocol: Document 09/08/23 15:18 DCW (Rec: 09/08/23 16:01 DCW [id number]) OP-PT Subjective Patient Comments Patient Comments Pt wearing lace-up shoes today PT-OP-E Functional Tests Start: 01/19/23 09:03 Freq: Status: Active Protocol: Document 07/05/23 15:15 DCW (Rec: 07/05/23 15:48 DCW [id number]) Functional Tests 6 Minute Walk Test Distance 428' Device Used SPC Comments 1.19 ft/sec Five Times Sit to Stand Test Score 21 Comments no UEs Timed Up and Go (TUG) Score 19.2 /s AD Comments Three-trial average (17.76, 19 .74, 20.14) TUG Impairment Rating 80 to <100% Impaired (Score 18 -19) PT-OP-G Mobility & Gait Start: 01/19/23 09:03 Freq: Status: Active Protocol: Document 07/05/23 15:15 DCW (Rec: 07/05/23 15:48 DCW [id number]) OP Gait Assessment Gait Gait Assistance Required: Contact Guard Assist,1 Person Assist Distance (Feet) 428 Able to Maintain Weight Bearing Status No During Gait Assistive Devices Assistive Device Gait Belt,Straight Cane Gait Deviations General Gait Pattern Antalgic,Decreased Stride Length,Decreased Feet Clearance,Lateral Trunk Lean PT-OP-M Strength Start: 01/19/23 09:03 Freq: Status: Active Protocol: Document 07/05/23 15:15 DCW (Rec: 07/05/23 15:48 DCW [id number]) Hip Strength Hip Manual Muscle Testing Right Flexion (L2) 4+ Good+ Extension (S1) 4+ Good+ Abduction 4+ Good+ Adduction 4+ Good+ External Rotation 5 Normal Internal Rotation 5 Normal Left Flexion (L2) 3+ Fair+ Extension (S1) 4 Good Abduction 3+ Fair+ Adduction 4 Good External Rotation 3 Fair Internal Rotation 3- Fair- Knee Strength Knee Manual Muscle Testing Right Flexion (S2) 5 Normal Extension (L3) 5 Normal Left Flexion (S2) 2+ Poor+ Extension (L3) 4 Good Comments unable to dissociate hip and knee movements; goes into knee extension AND hip extension PT-OP-Q Treatments Start: 01/19/23 09:03 Freq: Status: Active Protocol: Document 09/08/23 15:18 DCW (Rec: 09/08/23 16:01 DCW [id number]) Gym Equipment Shuttle Balance Red Details Staggered Stance Therapeutic Exercises Other Exercises Side-stepping Other Exercise Name Side-stepping, Retro ambulation Side bilateral Resistance No rail, no AD Neuro Re-Education Treatment Balance Activities Ball hit Details with pickle ball paddle and balls Comments WBOS, fifi step to right, backhand step to left, overhead hit, WBOS with right foot on [employer] PT-OP-T Assessment and Plan Start: 01/19/23 09:03 Freq: Status: Active Protocol: Document 09/08/23 15:18 DCW (Rec: 09/08/23 16:01 DCW [id number]) Physical Therapy Assessment Impairments Impairments Activity Tolerance,Balance, Functional Activities, Functional Mobility,Gait, Strength,Tone,Transfers Goals 6MWT Impairment 6MWT Impairment IE: 360 feet with SPC Short Term Goal (STG) Pt will improve 6MWT by 160 feet (MCID) to a score > 520 feet. STG Duration 09/04/23 Production Stage Manager Goal (LTG) Pt will improve 6MWT by 320 feet (MCID) to a score > 680 feet. LTG Duration 10/03/23 stairs Impairment stair negotiation Intermediate Goal (LTG) Pt will be able to ascend stairs with step through gait pattern and use single railing . LTG Duration MET muscle isolation Impairment muscle isolation Impairment unable to extend knee separately from hip extension Intermediate Goal (LTG) Pt will be able to perform seated knee extensions using 5 # weight without compensatory hip extension. LTG Duration 10/03/23 HEP Impairment HEP Short Term Goal (STG) Pt will report performing HEP >3 days/week. STG Duration Met Intermediate Goal (LTG) Pt will report performing HEP >3 days/week. LTG Duration 10/03/23 Assessment Summary Assessment Continued to focus on stabilization, reach, and step while hitting Pickle Ball, pt much more involved when given task to work toward. Pt demonstrating improvement on Shuttle Balance, less reliance on UE support. Physical Therapy Plan Frequency and Duration Frequency of Treatment 2x/Week Plan of Care Start Date 07/05/23 Plan of Care End Date 10/03/23 Therapeutic Interventions Therapeutic Interventions Gait Training,Home Exercise Program,Manual Therapy, Neuromuscular Re-education, Orthotic/Prosthetic Management ,Patient/Caregiver Education, Self-Care/Home Management,Soft Tissue Mobilization,Taping, Therapeutic Activities, Therapeutic Exercises Next Visit Focus/Plan Next Note Type Treatment Note Next Visit Plan Manual as needed, KFO, HS, Amy kohler. POC: Continue EC balance, strengthening mechanics LLE with postural corrections to support energy conservation. POC: Balance challenges, gait/ stair training, strengthening, calf stretch prior to stagger stance sit to stand next session
--- NOTE | 2023-09-14 16:23 | PT.OTN ---
Current Diagnoses Cerebral infarction, unspecified (09/14/23) Physical Therapy Treatment Note PT-OP-A Visit Information Start: 01/19/23 09:03 Freq: Status: Active Protocol: Document 09/14/23 15:19 AB (Rec: 09/14/23 16:22 AB [id number]) Out-Patient Physical Therapy Visit Information Visit Information Visit Type Treatment Note Visit Note 10/18 for PN Visit Start Time 15:20 Visit Stop Time 16:03 Visit Number 55 Number of PHYSICIANS ASSISTANT Visits 1 Evaluation Information Evaluation Date 01/19/23 PT-OP-B Current Condition Start: 01/19/23 09:03 Freq: Status: Active Protocol: Document 01/19/23 13:29 ED (Rec: 01/19/23 13:41 ED [id number]) Current Condition History of Current Condition Onset Date June Current Complaints L sided hemiplegia History of Current Condition 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 He received home health and recently graduated from that. He states he wants to focus on his L UE as it has not made the same amount of progress as his L LE. He ambulates with a SPC and lives with his . he has to use the stairs constantly at home. He reports a few falls at home since the stroke. He says the only exercise he does at home currently is stairs. PT-OP-C Subjective Start: 01/19/23 09:03 Freq: Status: Active Protocol: Document 09/14/23 15:19 AB (Rec: 09/14/23 16:22 AB [id number]) OP-PT Subjective Patient Comments Patient Comments Pat reports having no pain, no falls, hasn't had any falls. PT-OP-E Functional Tests Start: 01/19/23 09:03 Freq: Status: Active Protocol: Document 07/05/23 15:15 DCW (Rec: 07/05/23 15:48 DCW [id number]) Functional Tests 6 Minute Walk Test Distance 428' Device Used SPC Comments 1.19 ft/sec Five Times Sit to Stand Test Score 21 Comments no UEs Timed Up and Go (TUG) Score 19.2 /s AD Comments Three-trial average (17.76, 19 .74, 20.14) TUG Impairment Rating 80 to <100% Impaired (Score 18 -19) PT-OP-G Mobility & Gait Start: 01/19/23 09:03 Freq: Status: Active Protocol: Document 07/05/23 15:15 DCW (Rec: 07/05/23 15:48 DCW [id number]) OP Gait Assessment Gait Gait Assistance Required: Contact Guard Assist,1 Person Assist Distance (Feet) 428 Able to Maintain Weight Bearing Status No During Gait Assistive Devices Assistive Device Gait Belt,Straight Cane Gait Deviations General Gait Pattern Antalgic,Decreased Stride Length,Decreased Feet Clearance,Lateral Trunk Lean PT-OP-M Strength Start: 01/19/23 09:03 Freq: Status: Active Protocol: Document 07/05/23 15:15 DCW (Rec: 07/05/23 15:48 DCW [id number]) Hip Strength Hip Manual Muscle Testing Right Flexion (L2) 4+ Good+ Extension (S1) 4+ Good+ Abduction 4+ Good+ Adduction 4+ Good+ External Rotation 5 Normal Internal Rotation 5 Normal Left Flexion (L2) 3+ Fair+ Extension (S1) 4 Good Abduction 3+ Fair+ Adduction 4 Good External Rotation 3 Fair Internal Rotation 3- Fair- Knee Strength Knee Manual Muscle Testing Right Flexion (S2) 5 Normal Extension (L3) 5 Normal Left Flexion (S2) 2+ Poor+ Extension (L3) 4 Good Comments unable to dissociate hip and knee movements; goes into knee extension AND hip extension PT-OP-Q Treatments Start: 01/19/23 09:03 Freq: Status: Active Protocol: Document 09/14/23 15:19 AB (Rec: 09/14/23 16:22 AB [id number]) Gym Equipment Shuttle Balance Red Details Staggered Stance and WBOS with head turns and visual scanning Reps/Duration 3 min Comments CGA to minimal assist Therapeutic Exercises Sitting Exercises stagger stance sit to stand Right LE fwd Sitting Exercise Name with UE use Reps/Minutes 2 X10 Comments Verbal cues for LE position X10 pre and post calf stretch Standing Exercises side stepping Side bilateral Reps/Minutes 10 feet X 2 left and right Comments VC to avoid toeing out retro stepping Standing Exercise Name CGA Reps/Minutes 15 feet X 4 Comments in parallel bars Step ups Standing Exercise Name Step-ups Side left Resistance on scale Equipment Used with UE support Reps/Minutes x10 X2 Comments to 190 lb, VC to fully extend knee, tapping to faciliate quad Therapeutic Activity Therapeutic Activity sit to stand Reps/Minutes X4 Comments start of session from lobby and once seated in gym. Patient ed left LE must be bent just past 90 deg during sit to stand, and if it is extended weight bearing is decreased/decreasing strength overall. Gait Training Gait Activity ambulation with 3rd foot cane Level of Assistance CGA Distance/Duration 15 feet Treatment Focus increased left knee extension and weightbearing Neuro Re-Education Treatment Balance Activities Ball hit Details with pickle ball paddle and balls Comments 2 bouts, in WBOS, stagger stance and stepping right then stepping left prior to hitting ball, ball thrown short with step right only. CGA to minimal assist step left and step right when ball was thrown short. PT-OP-T Assessment and Plan Start: 01/19/23 09:03 Freq: Status: Active Protocol: Document 09/14/23 15:19 AB (Rec: 09/14/23 16:22 AB [id number]) Physical Therapy Assessment Goals 6MWT Impairment 6MWT Impairment IE: 360 feet with SPC Short Term Goal (STG) Pt will improve 6MWT by 160 feet (MCID) to a score > 520 feet. STG Duration 09/04/23 Longterm Goal (LTG) Pt will improve 6MWT by 320 feet (MCID) to a score > 680 feet. LTG Duration 10/03/23 stairs Impairment stair negotiation Longterm Goal (LTG) Pt will be able to ascend stairs with step through gait pattern and use single railing . LTG Duration MET muscle isolation Impairment muscle isolation Impairment unable to extend knee separately from hip extension Longterm Goal (LTG) Pt will be able to perform seated knee extensions using 5 # weight without compensatory hip extension. LTG Duration 10/03/23 HEP Impairment HEP Short Term Goal (STG) Pt will report performing HEP >3 days/week. STG Duration Met Stenographic Court Reporter Goal (LTG) Pt will report performing HEP >3 days/week. LTG Duration 10/03/23 Assessment Summary Assessment Noted increased difficulty with weight shift fwd (ball thrown short) and step right during pickle ball, ie requires increased assist, not yet attempted with step left this session. step up on scale with left LE with UE support to nearly 190 lbs during step up training this session. Physical Therapy Plan Frequency and Duration Frequency of Treatment 2x/Week Plan of Care Start Date 07/05/23 Plan of Care End Date 10/03/23 Next Visit Focus/Plan Next Note Type Treatment Note Next Visit Plan Manual as needed, EBENEZERO, STAN, Amy kohler. POC: Continue EC balance, strengthening mechanics LLE with postural corrections to support energy conservation. POC: Balance challenges, gait/ stair training, strengthening, calf stretch prior to stagger stance sit to stand next session
--- NOTE | 2023-09-19 16:17 | PT.OTN ---
Current Diagnoses Cerebral infarction, unspecified (09/19/23) Physical Therapy Treatment Note PT-OP-A Visit Information Start: 01/19/23 09:03 Freq: Status: Active Protocol: Document 09/19/23 15:18 AB (Rec: 09/19/23 16:17 AB [id number]) Out-Patient Physical Therapy Visit Information Visit Information Visit Type Treatment Note Visit Note 11/18 Visit Start Time 15:20 Visit Stop Time 16:06 Visit Number 56 Number of LUMP ROLLER Visits 2 PT-OP-B Current Condition Start: 01/19/23 09:03 Freq: Status: Active Protocol: Document 01/19/23 13:29 ED (Rec: 01/19/23 13:41 ED [id number]) Current Condition History of Current Condition Onset Date June Current Complaints L sided hemiplegia History of Current Condition 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 He received home health and recently graduated from that. He states he wants to focus on his L UE as it has not made the same amount of progress as his L LE. He ambulates with a SPC and lives with his . he has to use the stairs constantly at home. He reports a few falls at home since the stroke. He says the only exercise he does at home currently is stairs. PT-OP-C Subjective Start: 01/19/23 09:03 Freq: Status: Active Protocol: Document 09/19/23 15:18 AB (Rec: 09/19/23 16:17 AB [id number]) OP-PT Subjective Patient Comments Patient Comments Patient into session with excessively decreased weight shift left stance phase, left LE in excessive ER, catching forefoot X 2 amublating into session with 3rd foot cane. Patient reports having no falls. Patient reports the left calf is tight today. Patient reports some days he does not feel as coordinated today, comments he did not sleep last night, reports feeling uncomfortable. PT-OP-E Functional Tests Start: 01/19/23 09:03 Freq: Status: Active Protocol: Document 07/05/23 15:15 DCW (Rec: 07/05/23 15:48 DCW [id number]) Functional Tests 6 Minute Walk Test Distance 428' Device Used SPC Comments 1.19 ft/sec Five Times Sit to Stand Test Score 21 Comments no UEs Timed Up and Go (TUG) Score 19.2 /s AD Comments Three-trial average (17.76, 19 .74, 20.14) TUG Impairment Rating 80 to <100% Impaired (Score 18 -19) PT-OP-G Mobility & Gait Start: 01/19/23 09:03 Freq: Status: Active Protocol: Document 07/05/23 15:15 DCW (Rec: 07/05/23 15:48 DCW [id number]) OP Gait Assessment Gait Gait Assistance Required: Contact Guard Assist,1 Person Assist Distance (Feet) 428 Able to Maintain Weight Bearing Status No During Gait Assistive Devices Assistive Device Gait Belt,Straight Cane Gait Deviations General Gait Pattern Antalgic,Decreased Stride Length,Decreased Feet Clearance,Lateral Trunk Lean PT-OP-M Strength Start: 01/19/23 09:03 Freq: Status: Active Protocol: Document 07/05/23 15:15 DCW (Rec: 07/05/23 15:48 DCW [id number]) Hip Strength Hip Manual Muscle Testing Right Flexion (L2) 4+ Good+ Extension (S1) 4+ Good+ Abduction 4+ Good+ Adduction 4+ Good+ External Rotation 5 Normal Internal Rotation 5 Normal Left Flexion (L2) 3+ Fair+ Extension (S1) 4 Good Abduction 3+ Fair+ Adduction 4 Good External Rotation 3 Fair Internal Rotation 3- Fair- Knee Strength Knee Manual Muscle Testing Right Flexion (S2) 5 Normal Extension (L3) 5 Normal Left Flexion (S2) 2+ Poor+ Extension (L3) 4 Good Comments unable to dissociate hip and knee movements; goes into knee extension AND hip extension PT-OP-Q Treatments Start: 01/19/23 09:03 Freq: Status: Active Protocol: Document 09/19/23 15:18 AB (Rec: 09/19/23 16:17 AB [id number]) Therapeutic Exercises Sitting Exercises seated hip abduction with band Resistance manual resistance Reps/Minutes one minute hold X 1 Comments verbal cues ankle PF/DF Sitting Exercise Name AROM post stretch DF Side bilateral Reps/Minutes X15 X 2 Comments second bout post increasing knee flexion Standing Exercises calf stretch Standing Exercise Name gastroc and soleus Side bilateral Equipment Used CHRISTIANE, rail support RUE Reps/Minutes 3x 60 each Comments verbal cues Step ups Standing Exercise Name Step-ups Side left Resistance on scale Equipment Used with UE support Reps/Minutes x10 Comments to 205 lb, VC to fully extend knee Gait Training Gait Activity ambulation with 3rd foot cane Level of Assistance CGA Distance/Duration 15 feet x2 Comments Verbal cues to note the pressure under the foot on right LE and mimic the pattern on the left foot during ambulation Manual Therapy Treatment Soft Tissue Mobilization left calf Mobilization Type Cross-Friction,Rolling, Sustained Pressure Intensity/Depth Moderate Body Position Sidelying Neuro Re-Education Treatment Balance Activities wall fall Reps/Duration X10 Comments pillow behind back, to mimic hip strategy and increased DF post stretch Ball hit Details with pickle ball paddle and balls Comments 1 bouts in normal LAUREN then, stepping right then stepping left prior to hitting ball, ball thrown short with step right and left this session, also added bilateral UE's clasped on paddle end of ball toss. CGA to minimal assist step left and step right when ball was thrown short. PT-OP-T Assessment and Plan Start: 01/19/23 09:03 Freq: Status: Active Protocol: Document 09/19/23 15:18 AB (Rec: 09/19/23 16:17 AB [id number]) Physical Therapy Assessment Assessment Summary Assessment Kari ambulates out of session with 3rd foot cane, left LE in less ER at hip ie nearly neutral, no scuffing/ improved clearance left LE through swing phase. End of ball toss with bilateral UE's on paddle this session, with improved color left hand end ball toss. Physical Therapy Plan Next Visit Focus/Plan Next Visit Plan Manual as needed, KFO, HS, Amy kohler. POC: Continue EC balance, strengthening mechanics LLE with postural corrections to support energy conservation. POC: Balance challenges, gait/ stair training, strengthening, calf stretch prior to stagger stance sit to stand next session
--- NOTE | 2023-09-28 16:02 | PT.OTN ---
Current Diagnoses Cerebral infarction, unspecified (09/28/23) Physical Therapy Treatment Note PT-OP-A Visit Information Start: 01/19/23 09:03 Freq: Status: Active Protocol: Document 09/28/23 15:20 DCW (Rec: 09/28/23 16:02 DCW [id number]) Out-Patient Physical Therapy Visit Information Visit Information Visit Type Progress Note Visit Start Time 15:20 Visit Stop Time 16:00 Visit Number 57 Number of CREDIT RISK ANALYTICS MANAGER Visits 0 Evaluation Information Evaluation Date 01/19/23 PT-OP-B Current Condition Start: 01/19/23 09:03 Freq: Status: Active Protocol: Document 01/19/23 13:29 ED (Rec: 01/19/23 13:41 ED [id number]) Current Condition History of Current Condition Onset Date June Current Complaints L sided hemiplegia History of Current Condition 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 He received home health and recently graduated from that. He states he wants to focus on his L UE as it has not made the same amount of progress as his L LE. He ambulates with a SPC and lives with his . he has to use the stairs constantly at home. He reports a few falls at home since the stroke. He says the only exercise he does at home currently is stairs. PT-OP-C Subjective Start: 01/19/23 09:03 Freq: Status: Active Protocol: Document 09/28/23 15:20 DCW (Rec: 09/28/23 16:02 DCW [id number]) OP-PT Subjective Patient Comments Patient Comments Pt worried that he is walking a little slower recently. PT-OP-E Functional Tests Start: 01/19/23 09:03 Freq: Status: Active Protocol: Document 09/28/23 15:20 DCW (Rec: 09/28/23 15:46 DCW [id number]) Functional Tests 6 Minute Walk Test Distance 512' Device Used SPC Comments 1.42 ft/sec Five Times Sit to Stand Test Score 19.9 Comments no UEs Timed Up and Go (TUG) Score 19.3 /s AD Comments Three-trial average (18.99, 22 .06, 17.04) TUG Impairment Rating 80 to <100% Impaired (Score 18 -19) PT-OP-G Mobility & Gait Start: 01/19/23 09:03 Freq: Status: Active Protocol: Document 09/28/23 15:20 DCW (Rec: 09/28/23 15:46 DCW [id number]) OP Gait Assessment Gait Gait Assistance Required: Contact Guard Assist,1 Person Assist Distance (Feet) 512 Able to Maintain Weight Bearing Status No During Gait Assistive Devices Assistive Device Gait Belt,Straight Cane Gait Deviations General Gait Pattern Antalgic,Decreased Stride Length,Decreased Feet Clearance,Lateral Trunk Lean PT-OP-M Strength Start: 01/19/23 09:03 Freq: Status: Active Protocol: Document 07/05/23 15:15 DCW (Rec: 07/05/23 15:48 DCW [id number]) Hip Strength Hip Manual Muscle Testing Right Flexion (L2) 4+ Good+ Extension (S1) 4+ Good+ Abduction 4+ Good+ Adduction 4+ Good+ External Rotation 5 Normal Internal Rotation 5 Normal Left Flexion (L2) 3+ Fair+ Extension (S1) 4 Good Abduction 3+ Fair+ Adduction 4 Good External Rotation 3 Fair Internal Rotation 3- Fair- Knee Strength Knee Manual Muscle Testing Right Flexion (S2) 5 Normal Extension (L3) 5 Normal Left Flexion (S2) 2+ Poor+ Extension (L3) 4 Good Comments unable to dissociate hip and knee movements; goes into knee extension AND hip extension PT-OP-Q Treatments Start: 01/19/23 09:03 Freq: Status: Active Protocol: Document 09/28/23 15:20 DCW (Rec: 09/28/23 16:02 DCW [id number]) Neuro Re-Education Treatment Balance Activities Ball hit Details with pickle ball paddle and balls Comments 2 bouts, in WBOS, fifi and backhand to work on weight shift and trunk mobility PT-OP-T Assessment and Plan Start: 01/19/23 09:03 Freq: Status: Active Protocol: Document 09/28/23 15:20 DCW (Rec: 09/28/23 16:02 DCW [id number]) Physical Therapy Assessment Goals 6MWT Impairment 6MWT Impairment IE: 360 feet with SPC Short Term Goal (STG) Pt will improve 6MWT by 160 feet (MCID) to a score > 520 feet. STG Duration 11/26/23 - Improving (512') Fish Hatchery Worker Goal (LTG) Pt will improve 6MWT by 320 feet (MCID) to a score > 680 feet. LTG Duration 12/27/23 stairs Impairment stair negotiation Alf Goal (LTG) Pt will be able to ascend stairs with step through gait pattern and use single railing . LTG Duration MET muscle isolation Impairment muscle isolation Impairment unable to extend knee separately from hip extension Fish Hatchery Worker Goal (LTG) Pt will be able to perform seated knee extensions using 5 # weight without compensatory hip extension. LTG Duration 12/27/23 HEP Impairment HEP Short Term Goal (STG) Pt will report performing HEP >3 days/week. STG Duration Met Progress Towards Goals Progress Towards Goals Slow Progress due to Medical Issues Assessment Summary Assessment Pt continues to demonstrate slow but fairly consistent progress toward goals. Gait speed and quality is improving , 5xStS score since initial evaluation has dropped from 49 to 19, 6MWTscore of 512' nearly reached goal of 520'. Continue to focus on weight- shift, gait training, strengthening, and return to preferred functional activities like playing pickleball with his son. Physical Therapy Plan Frequency and Duration Frequency of Treatment 2x/Week Plan of Care Start Date 09/28/23 Plan of Care End Date 12/27/23 Next Visit Focus/Plan Next Note Type Treatment Note Next Visit Plan Manual as needed, KFO, HS, Amy kohler. POC: Continue EC balance, strengthening mechanics LLE with postural corrections to support energy conservation. POC: Balance challenges, gait/ stair training, strengthening, calf stretch prior to stagger stance sit to stand next session
--- NOTE | 2023-09-28 16:02 | PT.OPPOC ---
Physical, Occupational & Speech Therapy At [facility] Current Diagnoses Cerebral infarction, unspecified (09/28/23) Visit Care Team Role Provider Type Kristian Kim MD Attending Provider Physician Family Provider Primary Care Provider Referring Provider Specialty: Family Practice Address: [address] [place] [address], [id number] Email: [email or web address] Plan Of Care PT-OP-T Assessment and Plan Start: 01/19/23 09:03 Freq: Status: Active Protocol: Document 09/28/23 15:20 DCW (Rec: 09/28/23 16:02 DCW [id number]) Physical Therapy Assessment Goals 6MWT Impairment 6MWT Impairment IE: 360 feet with SPC Short Term Goal (STG) Pt will improve 6MWT by 160 feet (MCID) to a score > 520 feet. STG Duration 11/26/23 - Improving (512') Residential Goal (LTG) Pt will improve 6MWT by 320 feet (MCID) to a score > 680 feet. LTG Duration 12/27/23 stairs Impairment stair negotiation Residential Goal (LTG) Pt will be able to ascend stairs with step through gait pattern and use single railing . LTG Duration MET muscle isolation Impairment muscle isolation Impairment unable to extend knee separately from hip extension Sports Statistician Goal (LTG) Pt will be able to perform seated knee extensions using 5 # weight without compensatory hip extension. LTG Duration 12/27/23 HEP Impairment HEP Short Term Goal (STG) Pt will report performing HEP >3 days/week. STG Duration Met Progress Towards Goals Progress Towards Goals Slow Progress due to Medical Issues Assessment Summary Assessment Pt continues to demonstrate slow but fairly consistent progress toward goals. Gait speed and quality is improving , 5xStS score since initial evaluation has dropped from 49 to 19, 6MWTscore of 512' nearly reached goal of 520'. Continue to focus on weight- shift, gait training, strengthening, and return to preferred functional activities like playing pickleball with his son. Physical Therapy Plan Frequency and Duration Frequency of Treatment 2x/Week Plan of Care Start Date 09/28/23 Plan of Care End Date 12/27/23 Next Visit Focus/Plan Next Note Type Treatment Note Next Visit Plan Manual as needed, KFO, HS, Amy stretch. POC: Continue EC balance, strengthening mechanics LLE with postural corrections to support energy conservation. POC: Balance challenges, gait/ stair training, strengthening, calf stretch prior to stagger stance sit to stand next session Plan of Care Dates Plan of Care Start Date 09/28/23 Plan of Care End Date 12/27/23 Electronically Signed by: Jasiel Vila, PT 09/28/23 2080 If you are in agreement with this Plan of Care, please return a signed and dated copy. I have reviewed this Plan of Care and certify that the skilled therapy services above are required to meet the patient?s needs. Physician Signature Date Printed Name and Credentials Clinical Instructor Signature Printed Name and Credentials
--- NOTE | 2023-10-05 12:44 | PT.OTN ---
Current Diagnoses Cerebral infarction, unspecified (10/05/23) Physical Therapy Treatment Note PT-OP-A Visit Information Start: 01/19/23 09:03 Freq: Status: Active Protocol: Document 10/05/23 12:07 DCW (Rec: 10/05/23 12:44 DCW [id number]) Out-Patient Physical Therapy Visit Information Visit Information Visit Type Treatment Note Visit Start Time 12:07 Visit Stop Time 12:45 Visit Number 58 Number of SWITCHGEAR REPAIRER Visits 0 Evaluation Information Evaluation Date 01/19/23 PT-OP-B Current Condition Start: 01/19/23 09:03 Freq: Status: Active Protocol: Document 01/19/23 13:29 ED (Rec: 01/19/23 13:41 ED [id number]) Current Condition History of Current Condition Onset Date June Current Complaints L sided hemiplegia History of Current Condition 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 He received home health and recently graduated from that. He states he wants to focus on his L UE as it has not made the same amount of progress as his L LE. He ambulates with a SPC and lives with his . he has to use the stairs constantly at home. He reports a few falls at home since the stroke. He says the only exercise he does at home currently is stairs. PT-OP-C Subjective Start: 01/19/23 09:03 Freq: Status: Active Protocol: Document 10/05/23 12:07 DCW (Rec: 10/05/23 12:44 DCW [id number]) OP-PT Subjective Patient Comments Patient Comments Pt admits he is feeling a little bit unsteady today. PT-OP-E Functional Tests Start: 01/19/23 09:03 Freq: Status: Active Protocol: Document 09/28/23 15:20 DCW (Rec: 09/28/23 15:46 DCW [id number]) Functional Tests 6 Minute Walk Test Distance 512' Device Used SPC Comments 1.42 ft/sec Five Times Sit to Stand Test Score 19.9 Comments no UEs Timed Up and Go (TUG) Score 19.3 /s AD Comments Three-trial average (18.99, 22 .06, 17.04) TUG Impairment Rating 80 to <100% Impaired (Score 18 -19) PT-OP-G Mobility & Gait Start: 01/19/23 09:03 Freq: Status: Active Protocol: Document 09/28/23 15:20 DCW (Rec: 09/28/23 15:46 DCW [id number]) OP Gait Assessment Gait Gait Assistance Required: Contact Guard Assist,1 Person Assist Distance (Feet) 512 Able to Maintain Weight Bearing Status No During Gait Assistive Devices Assistive Device Gait Belt,Straight Cane Gait Deviations General Gait Pattern Antalgic,Decreased Stride Length,Decreased Feet Clearance,Lateral Trunk Lean PT-OP-M Strength Start: 01/19/23 09:03 Freq: Status: Active Protocol: Document 07/05/23 15:15 DCW (Rec: 07/05/23 15:48 DCW [id number]) Hip Strength Hip Manual Muscle Testing Right Flexion (L2) 4+ Good+ Extension (S1) 4+ Good+ Abduction 4+ Good+ Adduction 4+ Good+ External Rotation 5 Normal Internal Rotation 5 Normal Left Flexion (L2) 3+ Fair+ Extension (S1) 4 Good Abduction 3+ Fair+ Adduction 4 Good External Rotation 3 Fair Internal Rotation 3- Fair- Knee Strength Knee Manual Muscle Testing Right Flexion (S2) 5 Normal Extension (L3) 5 Normal Left Flexion (S2) 2+ Poor+ Extension (L3) 4 Good Comments unable to dissociate hip and knee movements; goes into knee extension AND hip extension PT-OP-Q Treatments Start: 01/19/23 09:03 Freq: Status: Active Protocol: Document 10/05/23 12:07 DCW (Rec: 10/05/23 12:44 DCW [id number]) Therapeutic Exercises Supine Exercises lower trunk rotation Supine Exercise Name LTR Equipment Used X10 Comments Verbal cues, performed to relax muscles Sitting Exercises Piriformis Sitting Exercise Name Seated Figure-4 Side left Neuro Re-Education Treatment Balance Activities wall fall Details Retro fall to wall Reps/Duration x10 Ball hit Details with pickle ball paddle and balls Comments 2 bouts, in WBOS, fifi and backhand to work on weight shift and trunk mobility PT-OP-T Assessment and Plan Start: 01/19/23 09:03 Freq: Status: Active Protocol: Document 10/05/23 12:07 DCW (Rec: 10/05/23 12:44 DCW [id number]) Physical Therapy Assessment Impairments Impairments Activity Tolerance,Balance, Functional Activities, Functional Mobility,Gait, Strength,Tone,Transfers Goals 6MWT Impairment 6MWT Short Term Goal (STG) Pt will improve 6MWT by 160 feet (MCID) to a score > 520 feet. STG Duration 11/26/23 - Improving (512') [facility] Goal (LTG) Pt will improve 6MWT by 320 feet (MCID) to a score > 680 feet. LTG Duration 12/27/23 stairs Impairment stair negotiation Materials Assistant Goal (LTG) Pt will be able to ascend stairs with step through gait pattern and use single railing . LTG Duration MET muscle isolation Impairment muscle isolation Impairment unable to extend knee separately from hip extension [facility] Goal (LTG) Pt will be able to perform seated knee extensions using 5 # weight without compensatory hip extension. LTG Duration 12/27/23 HEP Impairment HEP Short Term Goal (STG) Pt will report performing HEP >3 days/week. STG Duration Met Assessment Summary Assessment Pt doing better with weight shifting and twisting body fot pickle ball hitting, still struggling with fatigue and balance on shuttle balance Physical Therapy Plan Frequency and Duration Frequency of Treatment 2x/Week Plan of Care Start Date 09/28/23 Plan of Care End Date 12/27/23 Next Visit Focus/Plan Next Note Type Treatment Note Next Visit Plan Manual as needed, KFO, HS, Amy kohler. POC: Continue EC balance, strengthening mechanics LLE with postural corrections to support energy conservation. POC: Balance challenges, gait/ stair training, strengthening, calf stretch prior to stagger stance sit to stand next session
--- NOTE | 2023-10-27 17:33 | PT.OTN ---
Current Diagnoses Cerebral infarction, unspecified (10/27/23) Physical Therapy Treatment Note PT-OP-A Visit Information Start: 01/19/23 09:03 Freq: Status: Active Protocol: Document 10/27/23 16:48 DCW (Rec: 10/27/23 17:33 DCW [id number]) Out-Patient Physical Therapy Visit Information Visit Information Visit Type Treatment Note Visit Start Time 16:48 Visit Stop Time 17:30 Visit Number 59 Number of EBD SPECIAL EDUCATION TEACHER Visits 0 Evaluation Information Evaluation Date 01/19/23 PT-OP-B Current Condition Start: 01/19/23 09:03 Freq: Status: Active Protocol: Document 01/19/23 13:29 ED (Rec: 01/19/23 13:41 ED [id number]) Current Condition History of Current Condition Onset Date June Current Complaints L sided hemiplegia History of Current Condition 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 He received home health and recently graduated from that. He states he wants to focus on his L UE as it has not made the same amount of progress as his L LE. He ambulates with a SPC and lives with his . he has to use the stairs constantly at home. He reports a few falls at home since the stroke. He says the only exercise he does at home currently is stairs. PT-OP-C Subjective Start: 01/19/23 09:03 Freq: Status: Active Protocol: Document 10/27/23 16:48 DCW (Rec: 10/27/23 17:33 DCW [id number]) OP-PT Subjective Patient Comments Patient Comments Pt recovering from recent COVID infection. PT-OP-E Functional Tests Start: 01/19/23 09:03 Freq: Status: Active Protocol: Document 09/28/23 15:20 DCW (Rec: 09/28/23 15:46 DCW [id number]) Functional Tests 6 Minute Walk Test Distance 512' Device Used SPC Comments 1.42 ft/sec Five Times Sit to Stand Test Score 19.9 Comments no UEs Timed Up and Go (TUG) Score 19.3 /s AD Comments Three-trial average (18.99, 22 .06, 17.04) TUG Impairment Rating 80 to <100% Impaired (Score 18 -19) PT-OP-G Mobility & Gait Start: 01/19/23 09:03 Freq: Status: Active Protocol: Document 09/28/23 15:20 DCW (Rec: 09/28/23 15:46 DCW [id number]) OP Gait Assessment Gait Gait Assistance Required: Contact Guard Assist,1 Person Assist Distance (Feet) 512 Able to Maintain Weight Bearing Status No During Gait Assistive Devices Assistive Device Gait Belt,Straight Cane Gait Deviations General Gait Pattern Antalgic,Decreased Stride Length,Decreased Feet Clearance,Lateral Trunk Lean PT-OP-M Strength Start: 01/19/23 09:03 Freq: Status: Active Protocol: Document 07/05/23 15:15 DCW (Rec: 07/05/23 15:48 DCW [id number]) Hip Strength Hip Manual Muscle Testing Right Flexion (L2) 4+ Good+ Extension (S1) 4+ Good+ Abduction 4+ Good+ Adduction 4+ Good+ External Rotation 5 Normal Internal Rotation 5 Normal Left Flexion (L2) 3+ Fair+ Extension (S1) 4 Good Abduction 3+ Fair+ Adduction 4 Good External Rotation 3 Fair Internal Rotation 3- Fair- Knee Strength Knee Manual Muscle Testing Right Flexion (S2) 5 Normal Extension (L3) 5 Normal Left Flexion (S2) 2+ Poor+ Extension (L3) 4 Good Comments unable to dissociate hip and knee movements; goes into knee extension AND hip extension PT-OP-Q Treatments Start: 01/19/23 09:03 Freq: Status: Active Protocol: Document 10/27/23 16:48 DCW (Rec: 10/27/23 17:33 DCW [id number]) Cardio Equipment Recumbent Elliptical (Biodex) Duration (Minutes) 6 Resistance 6 Seat Position 14 Other LEs only, pull into adduction cues for alignment focus Gym Equipment Shuttle Recovery Unilateral Squats Details L tactile cues Knee lat alignment, heel press asc/desc Resistance 37# (1 navy) Shuttle Recovery Platform Stable Bilateral Squats Details Adductor ball squeeze Resistance 75 # (3 navy) Shuttle Recovery Platform Stable Reps/Time x10 Shuttle Balance Red Details Staggered Stance and WBOS with head turns and visual scanning Reps/Duration 3 min Comments CGA to minimal assist Neuro Re-Education Treatment Balance Activities Ball hit Details with pickle ball paddle and balls Comments Staggered stance on AirEx and firm ground, fifi and backhand, aim at cone targets PT-OP-T Assessment and Plan Start: 01/19/23 09:03 Freq: Status: Active Protocol: Document 10/27/23 16:48 DCW (Rec: 10/27/23 17:33 DCW [id number]) Physical Therapy Assessment Impairments Impairments Activity Tolerance,Balance, Functional Activities, Functional Mobility,Gait, Strength,Tone,Transfers Goals 6MWT Impairment 6MWT Short Term Goal (STG) Pt will improve 6MWT by 160 feet (MCID) to a score > 520 feet. STG Duration 11/26/23 - Improving (512') Blending Tank Helper Goal (LTG) Pt will improve 6MWT by 320 feet (MCID) to a score > 680 feet. LTG Duration 12/27/23 stairs Impairment stair negotiation Residential Goal (LTG) Pt will be able to ascend stairs with step through gait pattern and use single railing . LTG Duration MET muscle isolation Impairment muscle isolation Impairment unable to extend knee separately from hip extension Residential Goal (LTG) Pt will be able to perform seated knee extensions using 5 # weight without compensatory hip extension. LTG Duration 12/27/23 HEP Impairment HEP Short Term Goal (STG) Pt will report performing HEP >3 days/week. STG Duration Met Assessment Summary Assessment Good response to pickle ball today, increased pt participation and mood. Minimal LOB, L LE very fatigued by end of session. Physical Therapy Plan Frequency and Duration Frequency of Treatment 2x/Week Plan of Care Start Date 09/28/23 Plan of Care End Date 12/27/23 Therapeutic Interventions Therapeutic Interventions Gait Training,Home Exercise Program,Manual Therapy, Neuromuscular Re-education, Orthotic/Prosthetic Management ,Patient/Caregiver Education, Self-Care/Home Management,Soft Tissue Mobilization,Taping, Therapeutic Activities, Therapeutic Exercises Next Visit Focus/Plan Next Note Type Treatment Note Next Visit Plan Manual as needed, KFO, HS, Amy stretch. POC: Continue EC balance, strengthening mechanics LLE with postural corrections to support energy conservation. POC: Balance challenges, gait/ stair training, strengthening, calf stretch prior to stagger stance sit to stand next session
--- NOTE | 2023-10-31 16:45 | PT.OTN ---
Current Diagnoses Cerebral infarction, unspecified (10/31/23) Physical Therapy Treatment Note PT-OP-A Visit Information Start: 01/19/23 09:03 Freq: Status: Active Protocol: Document 10/31/23 16:02 DCW (Rec: 10/31/23 16:44 DCW [id number]) Out-Patient Physical Therapy Visit Information Visit Information Visit Type Treatment Note Visit Start Time 16:02 Visit Stop Time 16:45 Visit Number 60 Number of AIRPORT SKILLED MAINTENANCE SUPERVISOR Visits 0 Evaluation Information Evaluation Date 01/19/23 PT-OP-B Current Condition Start: 01/19/23 09:03 Freq: Status: Active Protocol: Document 01/19/23 13:29 ED (Rec: 01/19/23 13:41 ED [id number]) Current Condition History of Current Condition Onset Date June Current Complaints L sided hemiplegia History of Current Condition 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 He received home health and recently graduated from that. He states he wants to focus on his L UE as it has not made the same amount of progress as his L LE. He ambulates with a SPC and lives with his . he has to use the stairs constantly at home. He reports a few falls at home since the stroke. He says the only exercise he does at home currently is stairs. PT-OP-C Subjective Start: 01/19/23 09:03 Freq: Status: Active Protocol: Document 10/31/23 16:02 DCW (Rec: 10/31/23 16:45 DCW [id number]) OP-PT Subjective Patient Comments Patient Comments Pt feeling pretty good today, no complaints PT-OP-E Functional Tests Start: 01/19/23 09:03 Freq: Status: Active Protocol: Document 09/28/23 15:20 DCW (Rec: 09/28/23 15:46 DCW [id number]) Functional Tests 6 Minute Walk Test Distance 512' Device Used SPC Comments 1.42 ft/sec Five Times Sit to Stand Test Score 19.9 Comments no UEs Timed Up and Go (TUG) Score 19.3 /s AD Comments Three-trial average (18.99, 22 .06, 17.04) TUG Impairment Rating 80 to <100% Impaired (Score 18 -19) PT-OP-G Mobility & Gait Start: 01/19/23 09:03 Freq: Status: Active Protocol: Document 09/28/23 15:20 DCW (Rec: 09/28/23 15:46 DCW [id number]) OP Gait Assessment Gait Gait Assistance Required: Contact Guard Assist,1 Person Assist Distance (Feet) 512 Able to Maintain Weight Bearing Status No During Gait Assistive Devices Assistive Device Gait Belt,Straight Cane Gait Deviations General Gait Pattern Antalgic,Decreased Stride Length,Decreased Feet Clearance,Lateral Trunk Lean PT-OP-M Strength Start: 01/19/23 09:03 Freq: Status: Active Protocol: Document 07/05/23 15:15 DCW (Rec: 07/05/23 15:48 DCW [id number]) Hip Strength Hip Manual Muscle Testing Right Flexion (L2) 4+ Good+ Extension (S1) 4+ Good+ Abduction 4+ Good+ Adduction 4+ Good+ External Rotation 5 Normal Internal Rotation 5 Normal Left Flexion (L2) 3+ Fair+ Extension (S1) 4 Good Abduction 3+ Fair+ Adduction 4 Good External Rotation 3 Fair Internal Rotation 3- Fair- Knee Strength Knee Manual Muscle Testing Right Flexion (S2) 5 Normal Extension (L3) 5 Normal Left Flexion (S2) 2+ Poor+ Extension (L3) 4 Good Comments unable to dissociate hip and knee movements; goes into knee extension AND hip extension PT-OP-Q Treatments Start: 01/19/23 09:03 Freq: Status: Active Protocol: Document 10/31/23 16:02 DCW (Rec: 10/31/23 16:44 DC [id number]) Gym Equipment Shuttle Recovery Unilateral Squats Details L tactile cues Knee lat alignment, heel press asc/desc Resistance 37# (1 navy) Shuttle Recovery Platform Stable Bilateral Squats Details Adductor ball squeeze Resistance 75 # (3 navy) Shuttle Recovery Platform Stable Shuttle Balance Red Details Staggered Stance and WBOS with head turns and visual scanning Comments CGA to minimal assist Therapeutic Exercises Sitting Exercises Hip Abduction Sitting Exercise Name Seated hip abduction Side bilateral Resistance Green loop Hip Flexion Sitting Exercise Name Resisted hip flexion Side left Resistance Green loop Neuro Re-Education Treatment Balance Activities Ball hit Details with pickle ball paddle and balls Comments Staggered stance on AirEx and firm ground, fifi and backhand, aim at cone targets PT-OP-T Assessment and Plan Start: 01/19/23 09:03 Freq: Status: Active Protocol: Document 10/31/23 16:02 DCW (Rec: 10/31/23 16:44 DC [id number]) Physical Therapy Assessment Impairments Impairments Activity Tolerance,Balance, Functional Activities, Functional Mobility,Gait, Strength,Tone,Transfers Goals 6MWT Impairment 6MWT Short Term Goal (STG) Pt will improve 6MWT by 160 feet (MCID) to a score > 520 feet. STG Duration 11/26/23 - Improving (512') Brim Plater Goal (LTG) Pt will improve 6MWT by 320 feet (MCID) to a score > 680 feet. LTG Duration 12/27/23 stairs Impairment stair negotiation Brim Plater Goal (LTG) Pt will be able to ascend stairs with step through gait pattern and use single railing . LTG Duration MET muscle isolation Impairment muscle isolation Impairment unable to extend knee separately from hip extension Brim Plater Goal (LTG) Pt will be able to perform seated knee extensions using 5 # weight without compensatory hip extension. LTG Duration 12/27/23 HEP Impairment HEP Short Term Goal (STG) Pt will report performing HEP >3 days/week. STG Duration Met Assessment Summary Assessment Pt happy with functional mobility during today's visit, admitted very fatigued. Good response to balance challenges and trunk rotation. Physical Therapy Plan Frequency and Duration Frequency of Treatment 2x/Week Plan of Care Start Date 09/28/23 Plan of Care End Date 12/27/23 Therapeutic Interventions Therapeutic Interventions Gait Training,Home Exercise Program,Manual Therapy, Neuromuscular Re-education, Orthotic/Prosthetic Management ,Patient/Caregiver Education, Self-Care/Home Management,Soft Tissue Mobilization,Taping, Therapeutic Activities, Therapeutic Exercises Next Visit Focus/Plan Next Note Type Treatment Note Next Visit Plan Manual as needed, KFO, HS, Amy kohler. POC: Continue EC balance, strengthening mechanics LLE with postural corrections to support energy conservation. POC: Balance challenges, gait/ stair training, strengthening, calf stretch prior to stagger stance sit to stand next session
--- NOTE | 2023-11-07 16:01 | PT.OTN ---
Current Diagnoses Cerebral infarction, unspecified (11/07/23) Physical Therapy Treatment Note PT-OP-A Visit Information Start: 01/19/23 09:03 Freq: Status: Active Protocol: Document 11/07/23 15:16 DCW (Rec: 11/07/23 16:01 DCW [id number]) Out-Patient Physical Therapy Visit Information Visit Information Visit Type Treatment Note Visit Start Time 15:16 Visit Stop Time 16:00 Visit Number 61 Number of THEATER MANAGER Visits 0 Evaluation Information Evaluation Date 01/19/23 PT-OP-B Current Condition Start: 01/19/23 09:03 Freq: Status: Active Protocol: Document 01/19/23 13:29 ED (Rec: 01/19/23 13:41 ED [id number]) Current Condition History of Current Condition Onset Date June Current Complaints L sided hemiplegia History of Current Condition 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 He received home health and recently graduated from that. He states he wants to focus on his L UE as it has not made the same amount of progress as his L LE. He ambulates with a SPC and lives with his . he has to use the stairs constantly at home. He reports a few falls at home since the stroke. He says the only exercise he does at home currently is stairs. PT-OP-C Subjective Start: 01/19/23 09:03 Freq: Status: Active Protocol: Document 11/07/23 15:16 DCW (Rec: 11/07/23 16:01 DCW [id number]) OP-PT Subjective Patient Comments Patient Comments Pt notes he had a stomach ache last week that was limiting his sleep. PT-OP-E Functional Tests Start: 01/19/23 09:03 Freq: Status: Active Protocol: Document 09/28/23 15:20 DCW (Rec: 09/28/23 15:46 DCW [id number]) Functional Tests 6 Minute Walk Test Distance 512' Device Used SPC Comments 1.42 ft/sec Five Times Sit to Stand Test Score 19.9 Comments no UEs Timed Up and Go (TUG) Score 19.3 /s AD Comments Three-trial average (18.99, 22 .06, 17.04) TUG Impairment Rating 80 to <100% Impaired (Score 18 -19) PT-OP-G Mobility & Gait Start: 01/19/23 09:03 Freq: Status: Active Protocol: Document 09/28/23 15:20 DCW (Rec: 09/28/23 15:46 DCW [id number]) OP Gait Assessment Gait Gait Assistance Required: Contact Guard Assist,1 Person Assist Distance (Feet) 512 Able to Maintain Weight Bearing Status No During Gait Assistive Devices Assistive Device Gait Belt,Straight Cane Gait Deviations General Gait Pattern Antalgic,Decreased Stride Length,Decreased Feet Clearance,Lateral Trunk Lean PT-OP-M Strength Start: 01/19/23 09:03 Freq: Status: Active Protocol: Document 07/05/23 15:15 DCW (Rec: 07/05/23 15:48 DCW [id number]) Hip Strength Hip Manual Muscle Testing Right Flexion (L2) 4+ Good+ Extension (S1) 4+ Good+ Abduction 4+ Good+ Adduction 4+ Good+ External Rotation 5 Normal Internal Rotation 5 Normal Left Flexion (L2) 3+ Fair+ Extension (S1) 4 Good Abduction 3+ Fair+ Adduction 4 Good External Rotation 3 Fair Internal Rotation 3- Fair- Knee Strength Knee Manual Muscle Testing Right Flexion (S2) 5 Normal Extension (L3) 5 Normal Left Flexion (S2) 2+ Poor+ Extension (L3) 4 Good Comments unable to dissociate hip and knee movements; goes into knee extension AND hip extension PT-OP-Q Treatments Start: 01/19/23 09:03 Freq: Status: Active Protocol: Document 11/07/23 15:16 DCW (Rec: 11/07/23 16:01 DCW [id number]) Gym Equipment Shuttle Recovery Unilateral Squats Details L tactile cues Knee lat alignment, heel press asc/desc Resistance 37# (1 navy) Shuttle Recovery Platform Stable Bilateral Squats Details Adductor ball squeeze Resistance 75 # (3 navy) Shuttle Recovery Platform Stable Shuttle Balance Red Details Staggered Stance and WBOS with head turns and visual scanning Comments CGA to minimal assist Therapeutic Exercises Other Exercises Retro Ambulation Other Exercise Name Retro ambulation Equipment Used // bars ER/IR Other Exercise Name Hip ER/IR - Half-kneel on stool Side left Equipment Used // bars Neuro Re-Education Treatment Balance Activities Ball hit Details with pickle ball paddle and balls Comments Staggered stance on AirEx and firm ground, fifi and backhand, aim at cone targets PT-OP-T Assessment and Plan Start: 01/19/23 09:03 Freq: Status: Active Protocol: Document 11/07/23 15:16 DCW (Rec: 11/07/23 16:01 DCW [id number]) Physical Therapy Assessment Impairments Impairments Activity Tolerance,Balance, Functional Activities, Functional Mobility,Gait, Strength,Tone,Transfers Goals 6MWT Impairment 6MWT Short Term Goal (STG) Pt will improve 6MWT by 160 feet (MCID) to a score > 520 feet. STG Duration 11/26/23 - Improving (512') [address] Deputy Clerk Goal (LTG) Pt will improve 6MWT by 320 feet (MCID) to a score > 680 feet. LTG Duration 12/27/23 stairs Impairment stair negotiation Half-Way Goal (LTG) Pt will be able to ascend stairs with step through gait pattern and use single railing . LTG Duration MET muscle isolation Impairment muscle isolation Impairment unable to extend knee separately from hip extension Justice [address] Deputy Clerk Goal (LTG) Pt will be able to perform seated knee extensions using 5 # weight without compensatory hip extension. LTG Duration 12/27/23 HEP Impairment HEP Short Term Goal (STG) Pt will report performing HEP >3 days/week. STG Duration Met Assessment Summary Assessment Good challenge with both half- kneel ER/IR and retro ambulation. Pt continues to have good response and increased motivation for participation with [employer] . Physical Therapy Plan Frequency and Duration Frequency of Treatment 2x/Week Plan of Care Start Date 09/28/23 Plan of Care End Date 12/27/23 Therapeutic Interventions Therapeutic Interventions Gait Training,Home Exercise Program,Manual Therapy, Neuromuscular Re-education, Orthotic/Prosthetic Management ,Patient/Caregiver Education, Self-Care/Home Management,Soft Tissue Mobilization,Taping, Therapeutic Activities, Therapeutic Exercises Next Visit Focus/Plan Next Note Type Treatment Note Next Visit Plan Manual as needed, KFO, HS, Amy stretch. POC: Continue EC balance, strengthening mechanics LLE with postural corrections to support energy conservation. POC: Balance challenges, gait/ stair training, strengthening, calf stretch prior to stagger stance sit to stand next session
--- NOTE | 2023-11-09 15:59 | PT.OTN ---
Current Diagnoses Cerebral infarction, unspecified (11/09/23) Physical Therapy Treatment Note PT-OP-A Visit Information Start: 01/19/23 09:03 Freq: Status: Active Protocol: Document 11/09/23 15:30 DCW (Rec: 11/09/23 15:59 DCW [id number]) Out-Patient Physical Therapy Visit Information Visit Information Visit Type Treatment Note Visit Note 15 minutes late Visit Start Time 15:30 Visit Stop Time 16:00 Visit Number 62 Number of INTERNET MARKETING EXECUTIVE Visits 0 Evaluation Information Evaluation Date 01/19/23 PT-OP-B Current Condition Start: 01/19/23 09:03 Freq: Status: Active Protocol: Document 01/19/23 13:29 ED (Rec: 01/19/23 13:41 ED [id number]) Current Condition History of Current Condition Onset Date June Current Complaints L sided hemiplegia History of Current Condition 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 He received home health and recently graduated from that. He states he wants to focus on his L UE as it has not made the same amount of progress as his L LE. He ambulates with a SPC and lives with his . he has to use the stairs constantly at home. He reports a few falls at home since the stroke. He says the only exercise he does at home currently is stairs. PT-OP-C Subjective Start: 01/19/23 09:03 Freq: Status: Active Protocol: Document 11/09/23 15:30 DCW (Rec: 11/09/23 15:59 DCW [id number]) OP-PT Subjective Patient Comments Patient Comments My left leg is hurting a bit, I think it stiffened doing the leg press last time. PT-OP-E Functional Tests Start: 01/19/23 09:03 Freq: Status: Active Protocol: Document 09/28/23 15:20 DCW (Rec: 09/28/23 15:46 DCW [id number]) Functional Tests 6 Minute Walk Test Distance 512' Device Used SPC Comments 1.42 ft/sec Five Times Sit to Stand Test Score 19.9 Comments no UEs Timed Up and Go (TUG) Score 19.3 /s AD Comments Three-trial average (18.99, 22 .06, 17.04) TUG Impairment Rating 80 to <100% Impaired (Score 18 -19) PT-OP-G Mobility & Gait Start: 01/19/23 09:03 Freq: Status: Active Protocol: Document 09/28/23 15:20 DCW (Rec: 09/28/23 15:46 DCW [id number]) OP Gait Assessment Gait Gait Assistance Required: Contact Guard Assist,1 Person Assist Distance (Feet) 512 Able to Maintain Weight Bearing Status No During Gait Assistive Devices Assistive Device Gait Belt,Straight Cane Gait Deviations General Gait Pattern Antalgic,Decreased Stride Length,Decreased Feet Clearance,Lateral Trunk Lean PT-OP-M Strength Start: 01/19/23 09:03 Freq: Status: Active Protocol: Document 07/05/23 15:15 DCW (Rec: 07/05/23 15:48 DCW [id number]) Hip Strength Hip Manual Muscle Testing Right Flexion (L2) 4+ Good+ Extension (S1) 4+ Good+ Abduction 4+ Good+ Adduction 4+ Good+ External Rotation 5 Normal Internal Rotation 5 Normal Left Flexion (L2) 3+ Fair+ Extension (S1) 4 Good Abduction 3+ Fair+ Adduction 4 Good External Rotation 3 Fair Internal Rotation 3- Fair- Knee Strength Knee Manual Muscle Testing Right Flexion (S2) 5 Normal Extension (L3) 5 Normal Left Flexion (S2) 2+ Poor+ Extension (L3) 4 Good Comments unable to dissociate hip and knee movements; goes into knee extension AND hip extension PT-OP-Q Treatments Start: 01/19/23 09:03 Freq: Status: Active Protocol: Document 11/09/23 15:30 DCW (Rec: 11/09/23 15:59 DCW [id number]) Cardio Equipment Recumbent Elliptical (Biodex) Duration (Minutes) 6 Resistance 5 Seat Position 12 Other LEs only, pull into adduction cues for alignment focus Neuro Re-Education Treatment Balance Activities Ball hit Details with pickle ball paddle and balls Comments Staggered stance on AirEx and firm ground, fifi and backhand, aim at cone targets PT-OP-T Assessment and Plan Start: 01/19/23 09:03 Freq: Status: Active Protocol: Document 11/09/23 15:30 DCW (Rec: 11/09/23 15:59 DCW [id number]) Physical Therapy Assessment Impairments Impairments Activity Tolerance,Balance, Functional Activities, Functional Mobility,Gait, Strength,Tone,Transfers Goals 6MWT Impairment 6MWT Short Term Goal (STG) Pt will improve 6MWT by 160 feet (MCID) to a score > 520 feet. STG Duration 11/26/23 - Improving (512') Pricing Actuary Goal (LTG) Pt will improve 6MWT by 320 feet (MCID) to a score > 680 feet. LTG Duration 12/27/23 stairs Impairment stair negotiation Pricing Actuary Goal (LTG) Pt will be able to ascend stairs with step through gait pattern and use single railing . LTG Duration MET muscle isolation Impairment muscle isolation Impairment unable to extend knee separately from hip extension Pricing Actuary Goal (LTG) Pt will be able to perform seated knee extensions using 5 # weight without compensatory hip extension. LTG Duration 12/27/23 HEP Impairment HEP Short Term Goal (STG) Pt will report performing HEP >3 days/week. STG Duration Met Assessment Summary Assessment Shortened session due to late arrival, did well with trunk rotation, weight-shifting, and coordination with hitting pickle balls today. Physical Therapy Plan Frequency and Duration Frequency of Treatment 2x/Week Plan of Care Start Date 09/28/23 Plan of Care End Date 12/27/23 Therapeutic Interventions Therapeutic Interventions Gait Training,Home Exercise Program,Manual Therapy, Neuromuscular Re-education, Orthotic/Prosthetic Management ,Patient/Caregiver Education, Self-Care/Home Management,Soft Tissue Mobilization,Taping, Therapeutic Activities, Therapeutic Exercises Next Visit Focus/Plan Next Note Type Treatment Note Next Visit Plan Manual as needed, STAN CHAMORRO, Amy kohler. POC: Continue EC balance, strengthening mechanics LLE with postural corrections to support energy conservation. POC: Balance challenges, gait/ stair training, strengthening, calf stretch prior to stagger stance sit to stand next session
--- NOTE | 2023-11-18 15:07 | PT.OTN ---
Current Diagnoses Cerebral infarction, unspecified (11/18/23) Physical Therapy Treatment Note PT-OP-A Visit Information Start: 01/19/23 09:03 Freq: Status: Active Protocol: Document 11/18/23 14:20 DCW (Rec: 11/18/23 15:07 DCW [id number]) Out-Patient Physical Therapy Visit Information Visit Information Visit Type Treatment Note Visit Start Time 14:20 Visit Stop Time 15:05 Visit Number 63 Number of ANIMAL CAREGIVER Visits 0 Evaluation Information Evaluation Date 01/19/23 PT-OP-B Current Condition Start: 01/19/23 09:03 Freq: Status: Active Protocol: Document 01/19/23 13:29 ED (Rec: 01/19/23 13:41 ED [id number]) Current Condition History of Current Condition Onset Date June Current Complaints L sided hemiplegia History of Current Condition 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 He received home health and recently graduated from that. He states he wants to focus on his L UE as it has not made the same amount of progress as his L LE. He ambulates with a SPC and lives with his . he has to use the stairs constantly at home. He reports a few falls at home since the stroke. He says the only exercise he does at home currently is stairs. PT-OP-C Subjective Start: 01/19/23 09:03 Freq: Status: Active Protocol: Document 11/18/23 14:20 DCW (Rec: 11/18/23 15:07 DCW [id number]) OP-PT Subjective Patient Comments Patient Comments Pt reports he has been practicing throwing darts. PT-OP-E Functional Tests Start: 01/19/23 09:03 Freq: Status: Active Protocol: Document 09/28/23 15:20 DCW (Rec: 09/28/23 15:46 DCW [id number]) Functional Tests 6 Minute Walk Test Distance 512' Device Used SPC Comments 1.42 ft/sec Five Times Sit to Stand Test Score 19.9 Comments no UEs Timed Up and Go (TUG) Score 19.3 /s AD Comments Three-trial average (18.99, 22 .06, 17.04) TUG Impairment Rating 80 to <100% Impaired (Score 18 -19) PT-OP-G Mobility & Gait Start: 01/19/23 09:03 Freq: Status: Active Protocol: Document 09/28/23 15:20 DCW (Rec: 09/28/23 15:46 DCW [id number]) OP Gait Assessment Gait Gait Assistance Required: Contact Guard Assist,1 Person Assist Distance (Feet) 512 Able to Maintain Weight Bearing Status No During Gait Assistive Devices Assistive Device Gait Belt,Straight Cane Gait Deviations General Gait Pattern Antalgic,Decreased Stride Length,Decreased Feet Clearance,Lateral Trunk Lean PT-OP-M Strength Start: 01/19/23 09:03 Freq: Status: Active Protocol: Document 07/05/23 15:15 DCW (Rec: 07/05/23 15:48 DCW [id number]) Hip Strength Hip Manual Muscle Testing Right Flexion (L2) 4+ Good+ Extension (S1) 4+ Good+ Abduction 4+ Good+ Adduction 4+ Good+ External Rotation 5 Normal Internal Rotation 5 Normal Left Flexion (L2) 3+ Fair+ Extension (S1) 4 Good Abduction 3+ Fair+ Adduction 4 Good External Rotation 3 Fair Internal Rotation 3- Fair- Knee Strength Knee Manual Muscle Testing Right Flexion (S2) 5 Normal Extension (L3) 5 Normal Left Flexion (S2) 2+ Poor+ Extension (L3) 4 Good Comments unable to dissociate hip and knee movements; goes into knee extension AND hip extension PT-OP-Q Treatments Start: 01/19/23 09:03 Freq: Status: Active Protocol: Document 11/18/23 14:20 DCW (Rec: 11/18/23 15:07 DCW [id number]) Cardio Equipment Recumbent Elliptical (Biodmodu) Duration (Minutes) 6 Resistance 5 Seat Position 12 Other LEs only, pull into adduction cues for alignment focus Gym Equipment Shuttle Balance Red Details WBOS, Lateral Therapeutic Exercises Standing Exercises Hip Flexion Standing Exercise Name Hip Flexion - tap // bar with knee Side bilateral Equipment Used // bar at 38 Other Exercises ER/IR Other Exercise Name Hip ER/IR - Half-kneel on stool Side left Equipment Used // bars Neuro Re-Education Treatment Balance Activities Ball hit Details with pickle ball paddle and balls Comments Staggered stance on Blue pad, fifi and backhand, aim at cone targets PT-OP-T Assessment and Plan Start: 01/19/23 09:03 Freq: Status: Active Protocol: Document 11/18/23 14:20 DCW (Rec: 11/18/23 15:07 DC [id number]) Physical Therapy Assessment Impairments Impairments Activity Tolerance,Balance, Functional Activities, Functional Mobility,Gait, Strength,Tone,Transfers Goals 6MWT Impairment 6MWT Short Term Goal (STG) Pt will improve 6MWT by 160 feet (MCID) to a score > 520 feet. STG Duration 11/26/23 - Improving (512') Intermediate Goal (LTG) Pt will improve 6MWT by 320 feet (MCID) to a score > 680 feet. LTG Duration 12/27/23 stairs Impairment stair negotiation [employer] Goal (LTG) Pt will be able to ascend stairs with step through gait pattern and use single railing . LTG Duration MET muscle isolation Impairment muscle isolation Impairment unable to extend knee separately from hip extension [employer]man Goal (LTG) Pt will be able to perform seated knee extensions using 5 # weight without compensatory hip extension. LTG Duration 12/27/23 HEP Impairment HEP Short Term Goal (STG) Pt will report performing HEP >3 days/week. STG Duration Met Assessment Summary Assessment Addition of standing hip flexion, pt struggled initially shifting weight and supporting himself onto left leg, but after a few tries, was doing well. Continue to work on gait, balance, and activity tolerance Physical Therapy Plan Frequency and Duration Frequency of Treatment 2x/Week Plan of Care Start Date 09/28/23 Plan of Care End Date 12/27/23 Therapeutic Interventions Therapeutic Interventions Gait Training,Home Exercise Program,Manual Therapy, Neuromuscular Re-education, Orthotic/Prosthetic Management ,Patient/Caregiver Education, Self-Care/Home Management,Soft Tissue Mobilization,Taping, Therapeutic Activities, Therapeutic Exercises Next Visit Focus/Plan Next Note Type Treatment Note Next Visit Plan Manual as needed, KFO, HS, Amy kohler. POC: Continue EC balance, strengthening mechanics LLE with postural corrections to support energy conservation. POC: Balance challenges, gait/ stair training, strengthening, calf stretch prior to stagger stance sit to stand next session
--- NOTE | 2023-11-23 10:33 | PT.OTN ---
Current Diagnoses Cerebral infarction, unspecified (11/23/23) Physical Therapy Treatment Note PT-OP-A Visit Information Start: 01/19/23 09:03 Freq: Status: Active Protocol: Document 11/23/23 09:50 DCW (Rec: 11/23/23 10:33 DCW [id number]) Out-Patient Physical Therapy Visit Information Visit Information Visit Type Treatment Note Visit Start Time 09:50 Visit Stop Time 10:30 Visit Number 64 Number of ELECTRIC POWER LINE REPAIRER Visits 0 Evaluation Information Evaluation Date 01/19/23 PT-OP-B Current Condition Start: 01/19/23 09:03 Freq: Status: Active Protocol: Document 01/19/23 13:29 ED (Rec: 01/19/23 13:41 ED [id number]) Current Condition History of Current Condition Onset Date June Current Complaints L sided hemiplegia History of Current Condition 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 He received home health and recently graduated from that. He states he wants to focus on his L UE as it has not made the same amount of progress as his L LE. He ambulates with a SPC and lives with his . he has to use the stairs constantly at home. He reports a few falls at home since the stroke. He says the only exercise he does at home currently is stairs. PT-OP-C Subjective Start: 01/19/23 09:03 Freq: Status: Active Protocol: Document 11/23/23 09:50 DCW (Rec: 11/23/23 10:33 DCW [id number]) OP-PT Subjective Patient Comments Patient Comments Pt had fall over the weekend, was helping his move furniture to clean their rugs, and pushing the sofa made it move more than expected, and he lost his balance and fell onto the carpet. Feels a little more off balance, but overall okay. PT-OP-E Functional Tests Start: 01/19/23 09:03 Freq: Status: Active Protocol: Document 09/28/23 15:20 DCW (Rec: 09/28/23 15:46 DCW [id number]) Functional Tests 6 Minute Walk Test Distance 512' Device Used SPC Comments 1.42 ft/sec Five Times Sit to Stand Test Score 19.9 Comments no UEs Timed Up and Go (TUG) Score 19.3 /s AD Comments Three-trial average (18.99, 22 .06, 17.04) TUG Impairment Rating 80 to <100% Impaired (Score 18 -19) PT-OP-G Mobility & Gait Start: 01/19/23 09:03 Freq: Status: Active Protocol: Document 09/28/23 15:20 DCW (Rec: 09/28/23 15:46 DCW [id number]) OP Gait Assessment Gait Gait Assistance Required: Contact Guard Assist,1 Person Assist Distance (Feet) 512 Able to Maintain Weight Bearing Status No During Gait Assistive Devices Assistive Device Gait Belt,Straight Cane Gait Deviations General Gait Pattern Antalgic,Decreased Stride Length,Decreased Feet Clearance,Lateral Trunk Lean PT-OP-M Strength Start: 01/19/23 09:03 Freq: Status: Active Protocol: Document 07/05/23 15:15 DCW (Rec: 07/05/23 15:48 DCW [id number]) Hip Strength Hip Manual Muscle Testing Right Flexion (L2) 4+ Good+ Extension (S1) 4+ Good+ Abduction 4+ Good+ Adduction 4+ Good+ External Rotation 5 Normal Internal Rotation 5 Normal Left Flexion (L2) 3+ Fair+ Extension (S1) 4 Good Abduction 3+ Fair+ Adduction 4 Good External Rotation 3 Fair Internal Rotation 3- Fair- Knee Strength Knee Manual Muscle Testing Right Flexion (S2) 5 Normal Extension (L3) 5 Normal Left Flexion (S2) 2+ Poor+ Extension (L3) 4 Good Comments unable to dissociate hip and knee movements; goes into knee extension AND hip extension PT-OP-Q Treatments Start: 01/19/23 09:03 Freq: Status: Active Protocol: Document 11/23/23 09:50 DCW (Rec: 11/23/23 10:33 DCW [id number]) Cardio Equipment Recumbent Elliptical (Biodex) Duration (Minutes) 7 Resistance 6 Seat Position 12 Other LEs only, pull into adduction cues for alignment focus Gym Equipment Shuttle Recovery Unilateral Squats Details L tactile cues Knee lat alignment, heel press asc/desc Resistance 37# (1 navy) Shuttle Recovery Platform Stable Bilateral Squats Details Adductor ball squeeze Resistance 75 # (3 navy) Shuttle Recovery Platform Stable Shuttle Balance Red Details WBOS, Lateral PT-OP-T Assessment and Plan Start: 01/19/23 09:03 Freq: Status: Active Protocol: Document 11/23/23 09:50 DCW (Rec: 11/23/23 10:33 DCW [id number]) Physical Therapy Assessment Impairments Impairments Activity Tolerance,Balance, Functional Activities, Functional Mobility,Gait, Strength,Tone,Transfers Goals 6MWT Impairment 6MWT Short Term Goal (STG) Pt will improve 6MWT by 160 feet (MCID) to a score > 520 feet. STG Duration 11/26/23 - Improving (512') Director Counseling Bureau Goal (LTG) Pt will improve 6MWT by 320 feet (MCID) to a score > 680 feet. LTG Duration 12/27/23 stairs Impairment stair negotiation Director Counseling Bureau Goal (LTG) Pt will be able to ascend stairs with step through gait pattern and use single railing . LTG Duration MET muscle isolation Impairment muscle isolation Impairment unable to extend knee separately from hip extension Fpc Goal (LTG) Pt will be able to perform seated knee extensions using 5 # weight without compensatory hip extension. LTG Duration 12/27/23 HEP Impairment HEP Short Term Goal (STG) Pt will report performing HEP >3 days/week. STG Duration Met Assessment Summary Assessment Admits feeling off balance following his fall over the weekend, but happy with his performance today. Pt continues to feel more confident with weight shifting and reaching using paddle to work toward returning to playing Pickle Ball. Physical Therapy Plan Frequency and Duration Frequency of Treatment 2x/Week Plan of Care Start Date 09/28/23 Plan of Care End Date 12/27/23 Therapeutic Interventions Therapeutic Interventions Gait Training,Home Exercise Program,Manual Therapy, Neuromuscular Re-education, Orthotic/Prosthetic Management ,Patient/Caregiver Education, Self-Care/Home Management,Soft Tissue Mobilization,Taping, Therapeutic Activities, Therapeutic Exercises Next Visit Focus/Plan Next Note Type Treatment Note Next Visit Plan Manual as needed, KFO, HS, Amy stretch. POC: Continue EC balance, strengthening mechanics LLE with postural corrections to support energy conservation. POC: Balance challenges, gait/ stair training, strengthening, calf stretch prior to stagger stance sit to stand next session
--- NOTE | 2023-12-05 16:21 | PT.OTN ---
Current Diagnoses Cerebral infarction, unspecified (12/05/23) Physical Therapy Treatment Note PT-OP-A Visit Information Start: 01/19/23 09:03 Freq: Status: Active Protocol: Document 12/05/23 12:53 AB (Rec: 12/05/23 13:48 AB [id number]) Out-Patient Physical Therapy Visit Information Visit Information Visit Type Treatment Note Visit Start Time 13:02 Visit Stop Time 13:47 Visit Number 65 Number of MACHINE SET UP OPERATOR Visits 1 Evaluation Information Evaluation Date 01/19/23 PT-OP-B Current Condition Start: 01/19/23 09:03 Freq: Status: Active Protocol: Document 01/19/23 13:29 ED (Rec: 01/19/23 13:41 ED [id number]) Current Condition History of Current Condition Onset Date June Current Complaints L sided hemiplegia History of Current Condition 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 He received home health and recently graduated from that. He states he wants to focus on his L UE as it has not made the same amount of progress as his L LE. He ambulates with a SPC and lives with his . he has to use the stairs constantly at home. He reports a few falls at home since the stroke. He says the only exercise he does at home currently is stairs. PT-OP-C Subjective Start: 01/19/23 09:03 Freq: Status: Active Protocol: Document 12/05/23 12:53 AB (Rec: 12/05/23 13:48 AB [id number]) OP-PT Subjective Patient Comments Patient Comments Patient reports he was thinking about how to perform a dink shot with pickle ball. Patient reports having no falls since previous PT-OP-E Functional Tests Start: 01/19/23 09:03 Freq: Status: Active Protocol: Document 09/28/23 15:20 DCW (Rec: 09/28/23 15:46 DCW [id number]) Functional Tests 6 Minute Walk Test Distance 512' Device Used SPC Comments 1.42 ft/sec Five Times Sit to Stand Test Score 19.9 Comments no UEs Timed Up and Go (TUG) Score 19.3 /s AD Comments Three-trial average (18.99, 22 .06, 17.04) TUG Impairment Rating 80 to <100% Impaired (Score 18 -19) PT-OP-G Mobility & Gait Start: 01/19/23 09:03 Freq: Status: Active Protocol: Document 09/28/23 15:20 DCW (Rec: 09/28/23 15:46 DCW [id number]) OP Gait Assessment Gait Gait Assistance Required: Contact Guard Assist,1 Person Assist Distance (Feet) 512 Able to Maintain Weight Bearing Status No During Gait Assistive Devices Assistive Device Gait Belt,Straight Cane Gait Deviations General Gait Pattern Antalgic,Decreased Stride Length,Decreased Feet Clearance,Lateral Trunk Lean PT-OP-M Strength Start: 01/19/23 09:03 Freq: Status: Active Protocol: Document 07/05/23 15:15 DCW (Rec: 07/05/23 15:48 DCW [id number]) Hip Strength Hip Manual Muscle Testing Right Flexion (L2) 4+ Good+ Extension (S1) 4+ Good+ Abduction 4+ Good+ Adduction 4+ Good+ External Rotation 5 Normal Internal Rotation 5 Normal Left Flexion (L2) 3+ Fair+ Extension (S1) 4 Good Abduction 3+ Fair+ Adduction 4 Good External Rotation 3 Fair Internal Rotation 3- Fair- Knee Strength Knee Manual Muscle Testing Right Flexion (S2) 5 Normal Extension (L3) 5 Normal Left Flexion (S2) 2+ Poor+ Extension (L3) 4 Good Comments unable to dissociate hip and knee movements; goes into knee extension AND hip extension PT-OP-Q Treatments Start: 01/19/23 09:03 Freq: Status: Active Protocol: Document 12/05/23 12:53 AB (Rec: 12/05/23 13:48 AB [id number]) Gym Equipment Shuttle Rebound pickle ball Exercise Details 1. toss 2. with paddle Comments increased focus on patient retriving balls from floor cga Therapeutic Exercises Supine Exercises lower trunk rotation Supine Exercise Name LTR Equipment Used [id number] Comments Verbal cues, performed to relax muscles amy stretch Side left Reps/Minutes 60 seconds with AROM knee flexion Hip IR/ER Supine Exercise Name knee to chest then away Side left Equipment Used knee bent Reps/Minutes x10 Sidelying Exercises left knee extension Resistance level one band Reps/Minutes X8 Sitting Exercises ankle PF/DF Sitting Exercise Name AROM post stretch DF Side bilateral Reps/Minutes x30 Standing Exercises calf stretch Standing Exercise Name gastroc and soleus Side bilateral Equipment Used CHRISTIANE, rail support RUE Reps/Minutes 3x 60 each Comments verbal cues Manual Therapy Treatment Soft Tissue Mobilization paraspinals Body Location left lumbar and lower thoracic Intensity/Depth Moderate Manual Techniques Stretching Type left HS Reps/Duration X1 contract relax PT-OP-T Assessment and Plan Start: 01/19/23 09:03 Freq: Status: Active Protocol: Document 12/05/23 12:53 AB (Rec: 12/05/23 13:48 AB [id number]) Physical Therapy Assessment Goals 6MWT Impairment 6MWT Impairment IE: 360 feet with SPC Short Term Goal (STG) Pt will improve 6MWT by 160 feet (MCID) to a score > 520 feet. STG Duration 11/26/23 - Improving (512') Skilled Nursing Goal (LTG) Pt will improve 6MWT by 320 feet (MCID) to a score > 680 feet. LTG Duration 12/27/23 stairs Impairment stair negotiation Green Building Architect Goal (LTG) Pt will be able to ascend stairs with step through gait pattern and use single railing . LTG Duration MET muscle isolation Impairment muscle isolation Impairment unable to extend knee separately from hip extension Green Building Architect Goal (LTG) Pt will be able to perform seated knee extensions using 5 # weight without compensatory hip extension. LTG Duration 12/27/23 Physical Therapy Plan Frequency and Duration Frequency of Treatment 2x/Week Plan of Care Start Date 09/28/23 Plan of Care End Date 12/27/23 Next Visit Focus/Plan Next Note Type Treatment Note Next Visit Plan Manual as needed, KFO, HS, Amy stretch. POC: Continue EC balance, strengthening mechanics LLE with postural corrections to support energy conservation. POC: Balance challenges, gait/ stair training, strengthening, calf stretch prior to stagger stance sit to stand next session
--- NOTE | 2023-12-09 15:12 | PT-OP ANOTE ---
Phoned regarding no show with no answer. Left message regarding no show this session; 2 discharge after 2 no shows, and fee for no show. Also left Date and time of next physical therapy appointment.
--- NOTE | 2023-12-19 17:34 | PT.OTN ---
Current Diagnoses Cerebral infarction, unspecified (12/19/23) Physical Therapy Treatment Note PT-OP-A Visit Information Start: 01/19/23 09:03 Freq: Status: Active Protocol: Document 12/19/23 16:50 DCW (Rec: 12/19/23 17:34 DCW [id number]) Out-Patient Physical Therapy Visit Information Visit Information Visit Type Treatment Note Visit Start Time 16:50 Visit Stop Time 17:30 Visit Number 66 Number of TRANSPLANT IMMUNOLOGIST Visits 0 Evaluation Information Evaluation Date 01/19/23 PT-OP-B Current Condition Start: 01/19/23 09:03 Freq: Status: Active Protocol: Document 01/19/23 13:29 ED (Rec: 01/19/23 13:41 ED [id number]) Current Condition History of Current Condition Onset Date June Current Complaints L sided hemiplegia History of Current Condition 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 He received home health and recently graduated from that. He states he wants to focus on his L UE as it has not made the same amount of progress as his L LE. He ambulates with a SPC and lives with his . he has to use the stairs constantly at home. He reports a few falls at home since the stroke. He says the only exercise he does at home currently is stairs. PT-OP-C Subjective Start: 01/19/23 09:03 Freq: Status: Active Protocol: Document 12/19/23 16:50 DCW (Rec: 12/19/23 17:34 DCW [id number]) OP-PT Subjective Patient Comments Patient Comments I think I'm doing alright, it 's a little difficult for me to assess. PT-OP-E Functional Tests Start: 01/19/23 09:03 Freq: Status: Active Protocol: Document 09/28/23 15:20 DCW (Rec: 09/28/23 15:46 DCW [id number]) Functional Tests 6 Minute Walk Test Distance 512' Device Used SPC Comments 1.42 ft/sec Five Times Sit to Stand Test Score 19.9 Comments no UEs Timed Up and Go (TUG) Score 19.3 /s AD Comments Three-trial average (18.99, 22 .06, 17.04) TUG Impairment Rating 80 to <100% Impaired (Score 18 -19) PT-OP-G Mobility & Gait Start: 01/19/23 09:03 Freq: Status: Active Protocol: Document 09/28/23 15:20 DCW (Rec: 09/28/23 15:46 DCW [id number]) OP Gait Assessment Gait Gait Assistance Required: Contact Guard Assist,1 Person Assist Distance (Feet) 512 Able to Maintain Weight Bearing Status No During Gait Assistive Devices Assistive Device Gait Belt,Straight Cane Gait Deviations General Gait Pattern Antalgic,Decreased Stride Length,Decreased Feet Clearance,Lateral Trunk Lean PT-OP-M Strength Start: 01/19/23 09:03 Freq: Status: Active Protocol: Document 07/05/23 15:15 DCW (Rec: 07/05/23 15:48 DCW [id number]) Hip Strength Hip Manual Muscle Testing Right Flexion (L2) 4+ Good+ Extension (S1) 4+ Good+ Abduction 4+ Good+ Adduction 4+ Good+ External Rotation 5 Normal Internal Rotation 5 Normal Left Flexion (L2) 3+ Fair+ Extension (S1) 4 Good Abduction 3+ Fair+ Adduction 4 Good External Rotation 3 Fair Internal Rotation 3- Fair- Knee Strength Knee Manual Muscle Testing Right Flexion (S2) 5 Normal Extension (L3) 5 Normal Left Flexion (S2) 2+ Poor+ Extension (L3) 4 Good Comments unable to dissociate hip and knee movements; goes into knee extension AND hip extension PT-OP-Q Treatments Start: 01/19/23 09:03 Freq: Status: Active Protocol: Document 12/19/23 16:50 DCW (Rec: 12/19/23 17:34 DCW [id number]) Cardio Equipment Recumbent Elliptical (Biodex) Duration (Minutes) 7 Resistance 6 Seat Position 12 Other LEs only, pull into adduction cues for alignment focus Gym Equipment Shuttle Balance Red Details WBOS, Lateral Neuro Re-Education Treatment Balance Activities Ball hit Details with pickle ball paddle and balls Comments Staggered stance on Blue pad, fifi and backhand, aim at cone targets Tandem Stance Details Tandem Stance Equipment // bars Comments CGA with eyes open and eyes closed Static balance Details EO/EC Surface AirEx PT-OP-T Assessment and Plan Start: 01/19/23 09:03 Freq: Status: Active Protocol: Document 12/19/23 16:50 DCW (Rec: 12/19/23 17:34 DCW [id number]) Physical Therapy Assessment Impairments Impairments Activity Tolerance,Balance, Functional Activities, Functional Mobility,Gait, Strength,Tone,Transfers Goals 6MWT Impairment 6MWT Short Term Goal (STG) Pt will improve 6MWT by 160 feet (MCID) to a score > 520 feet. STG Duration 11/26/23 - Improving (512') Emissions Testing And Repair Technician Goal (LTG) Pt will improve 6MWT by 320 feet (MCID) to a score > 680 feet. LTG Duration 12/27/23 stairs Impairment stair negotiation Emissions Testing And Repair Technician Goal (LTG) Pt will be able to ascend stairs with step through gait pattern and use single railing . LTG Duration MET muscle isolation Impairment muscle isolation Impairment unable to extend knee separately from hip extension Emissions Testing And Repair Technician Goal (LTG) Pt will be able to perform seated knee extensions using 5 # weight without compensatory hip extension. LTG Duration 12/27/23 HEP Impairment HEP Short Term Goal (STG) Pt will report performing HEP >3 days/week. STG Duration Met Assessment Summary Assessment Pt showing some improvement on Shuttle Balance, however still fatigues fairly quickly. Continue to work on balance and weight-shifting, as well as leg strengthening. Physical Therapy Plan Frequency and Duration Frequency of Treatment 2x/Week Plan of Care Start Date 09/28/23 Plan of Care End Date 12/27/23 Therapeutic Interventions Therapeutic Interventions Gait Training,Home Exercise Program,Manual Therapy, Neuromuscular Re-education, Orthotic/Prosthetic Management ,Patient/Caregiver Education, Self-Care/Home Management,Soft Tissue Mobilization,Taping, Therapeutic Activities, Therapeutic Exercises Next Visit Focus/Plan Next Note Type Treatment Note Next Visit Plan Manual as needed, KFO, HS, Amy kohler. POC: Continue EC balance, strengthening mechanics LLE with postural corrections to support energy conservation. POC: Balance challenges, gait/ stair training, strengthening, calf stretch prior to stagger stance sit to stand next session
--- NOTE | 2023-12-26 17:34 | PT.OTN ---
Current Diagnoses Cerebral infarction, unspecified (12/26/23) Physical Therapy Treatment Note PT-OP-A Visit Information Start: 01/19/23 09:03 Freq: Status: Active Protocol: Document 12/26/23 16:47 DCW (Rec: 12/26/23 17:34 [facility] [id number]) Out-Patient Physical Therapy Visit Information Visit Information Visit Type Progress Note Visit Start Time 16:47 Visit Stop Time 17:30 Visit Number 67 Number of FACILITY SUPERVISOR Visits 0 Evaluation Information Evaluation Date 01/19/23 PT-OP-B Current Condition Start: 01/19/23 09:03 Freq: Status: Active Protocol: Document 01/19/23 13:29 ED (Rec: 01/19/23 13:41 ED [id number]) Current Condition History of Current Condition Onset Date June Current Complaints L sided hemiplegia History of Current Condition 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 He received home health and recently graduated from that. He states he wants to focus on his L UE as it has not made the same amount of progress as his L LE. He ambulates with a SPC and lives with his . he has to use the stairs constantly at home. He reports a few falls at home since the stroke. He says the only exercise he does at home currently is stairs. PT-OP-C Subjective Start: 01/19/23 09:03 Freq: Status: Active Protocol: Document 12/26/23 16:47 DCW (Rec: 12/26/23 17:34 DCW [id number]) OP-PT Subjective Patient Comments Patient Comments I'm working on standing up straighter. PT-OP-E Functional Tests Start: 01/19/23 09:03 Freq: Status: Active Protocol: Document 12/26/23 16:47 DCW (Rec: 12/26/23 17:10 DCW [id number]) Functional Tests 6 Minute Walk Test Distance 430' Device Used SPC Comments 1.19 ft/sec Five Times Sit to Stand Test Score 17.07 Comments no UEs Timed Up and Go (TUG) Score 19.7 /s AD Comments Three-trial average (20.5, 20. 84, 17.66) TUG Impairment Rating 80 to <100% Impaired (Score 18 -19) PT-OP-G Mobility & Gait Start: 01/19/23 09:03 Freq: Status: Active Protocol: Document 12/26/23 16:47 DCW (Rec: 12/26/23 17:10 DCW [id number]) OP Gait Assessment Gait Gait Assistance Required: Contact Guard Assist,1 Person Assist Distance (Feet) 430 Able to Maintain Weight Bearing Status No During Gait Assistive Devices Assistive Device Gait Belt,Straight Cane Gait Deviations General Gait Pattern Antalgic,Decreased Stride Length,Decreased Feet Clearance PT-OP-M Strength Start: 01/19/23 09:03 Freq: Status: Active Protocol: Document 07/05/23 15:15 DCW (Rec: 07/05/23 15:48 DCW [id number]) Hip Strength Hip Manual Muscle Testing Right Flexion (L2) 4+ Good+ Extension (S1) 4+ Good+ Abduction 4+ Good+ Adduction 4+ Good+ External Rotation 5 Normal Internal Rotation 5 Normal Left Flexion (L2) 3+ Fair+ Extension (S1) 4 Good Abduction 3+ Fair+ Adduction 4 Good External Rotation 3 Fair Internal Rotation 3- Fair- Knee Strength Knee Manual Muscle Testing Right Flexion (S2) 5 Normal Extension (L3) 5 Normal Left Flexion (S2) 2+ Poor+ Extension (L3) 4 Good Comments unable to dissociate hip and knee movements; goes into knee extension AND hip extension PT-OP-Q Treatments Start: 01/19/23 09:03 Freq: Status: Active Protocol: Document 12/26/23 16:47 DCW (Rec: 12/26/23 17:34 [facility] [id number]) Neuro Re-Education Treatment Balance Activities Ball hit Details with pickle ball paddle and balls Comments Staggered stance on Blue pad, fifi and backhand, aim at cone targets PT-OP-T Assessment and Plan Start: 01/19/23 09:03 Freq: Status: Active Protocol: Document 12/26/23 16:47 DCW (Rec: 12/26/23 17:34 DCW [id number]) Physical Therapy Assessment Impairments Impairments Activity Tolerance,Balance, Functional Activities, Functional Mobility,Gait, Strength,Tone,Transfers Goals 6MWT Impairment 6MWT Short Term Goal (STG) Pt will improve 6MWT by 160 feet (MCID) to a score > 520 feet. STG Duration 11/26/23 - Improving (512') Mcfp Goal (LTG) Pt will improve 6MWT by 320 feet (MCID) to a score > 680 feet. LTG Duration 03/25/24 stairs Impairment stair negotiation Mcfp Goal (LTG) Pt will be able to ascend stairs with step through gait pattern and use single railing . LTG Duration MET muscle isolation Impairment muscle isolation Impairment unable to extend knee separately from hip extension Seal Mixer Goal (LTG) Pt will be able to perform seated knee extensions using 5 # weight without compensatory hip extension. LTG Duration 03/25/24 HEP Impairment HEP Short Term Goal (STG) Pt will report performing HEP >3 days/week. STG Duration Met Assessment Summary Assessment Pt largely plateaued with some testing, is showing some improvement with 5xStS, unchanged TUG. Slight decline in distance during 6MWT. However, pt is exhibiting improved quality of gait, specifically improved safety with limiting lateral and forward trunk flexion during gait, which has helped limit uncontrolled forward motion. Should benefit from continued skilled therapeutic intervention in order to improve both quality and jonathon of gait, as well as weight shifting, balance, and LE functional mobility. Physical Therapy Plan Frequency and Duration Frequency of Treatment 2x/Week Plan of Care Start Date 12/26/23 Plan of Care End Date 03/25/24 Therapeutic Interventions Therapeutic Interventions Gait Training,Home Exercise Program,Manual Therapy, Neuromuscular Re-education, Orthotic/Prosthetic Management ,Patient/Caregiver Education, Self-Care/Home Management,Soft Tissue Mobilization,Taping, Therapeutic Activities, Therapeutic Exercises Next Visit Focus/Plan Next Note Type Treatment Note Next Visit Plan Manual as needed, STAN CHAMORRO, Amy kohler. POC: Continue EC balance, strengthening mechanics LLE with postural corrections to support energy conservation. POC: Balance challenges, gait/ stair training, strengthening, calf stretch prior to stagger stance sit to stand next session
--- NOTE | 2023-12-26 17:34 | PT.OPPOC ---
Physical, Occupational & Speech Therapy At [facility] Current Diagnoses Cerebral infarction, unspecified (12/26/23) Visit Care Team Role Provider Type Kristian Kim MD Attending Provider Physician Family Provider Primary Care Provider Referring Provider Specialty: Family Practice Address: [address] [place] [address], [id number] Email: [email or web address] Plan Of Care PT-OP-B Current Condition Start: 01/19/23 09:03 Freq: Status: Active Protocol: Document 01/19/23 13:29 ED (Rec: 01/19/23 13:41 ED [id number]) Current Condition History of Current Condition Onset Date June Current Complaints L sided hemiplegia History of Current Condition 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 He received home health and recently graduated from that. He states he wants to focus on his L UE as it has not made the same amount of progress as his L LE. He ambulates with a SPC and lives with his . he has to use the stairs constantly at home. He reports a few falls at home since the stroke. He says the only exercise he does at home currently is stairs. PT-OP-T Assessment and Plan Start: 01/19/23 09:03 Freq: Status: Active Protocol: Document 12/26/23 16:47 DCW (Rec: 12/26/23 17:34 DCW [id number]) Physical Therapy Assessment Impairments Impairments Activity Tolerance,Balance, Functional Activities, Functional Mobility,Gait, Strength,Tone,Transfers Goals 6MWT Impairment 6MWT Short Term Goal (STG) Pt will improve 6MWT by 160 feet (MCID) to a score > 520 feet. STG Duration 11/26/23 - Improving (512') Legislative Aide Goal (LTG) Pt will improve 6MWT by 320 feet (MCID) to a score > 680 feet. LTG Duration 03/25/24 stairs Impairment stair negotiation Legislative Aide Goal (LTG) Pt will be able to ascend stairs with step through gait pattern and use single railing . LTG Duration MET muscle isolation Impairment muscle isolation Impairment unable to extend knee separately from hip extension Legislative Aide Goal (LTG) Pt will be able to perform seated knee extensions using 5 # weight without compensatory hip extension. LTG Duration 03/25/24 HEP Impairment HEP Short Term Goal (STG) Pt will report performing HEP >3 days/week. STG Duration Met Assessment Summary Assessment Pt largely plateaued with some testing, is showing some improvement with 5xStS, unchanged TUG. Slight decline in distance during 6MWT. However, pt is exhibiting improved quality of gait, specifically improved safety with limiting lateral and forward trunk flexion during gait, which has helped limit uncontrolled forward motion. Should benefit from continued skilled therapeutic intervention in order to improve both quality and jonathon of gait, as well as weight shifting, balance, and LE functional mobility. Physical Therapy Plan Frequency and Duration Frequency of Treatment 2x/Week Plan of Care Start Date 12/26/23 Plan of Care End Date 03/25/24 Therapeutic Interventions Therapeutic Interventions Gait Training,Home Exercise Program,Manual Therapy, Neuromuscular Re-education, Orthotic/Prosthetic Management ,Patient/Caregiver Education, Self-Care/Home Management,Soft Tissue Mobilization,Taping, Therapeutic Activities, Therapeutic Exercises Next Visit Focus/Plan Next Note Type Treatment Note Next Visit Plan Manual as needed, KFO, HS, Amy stretch. POC: Continue EC balance, strengthening mechanics LLE with postural corrections to support energy conservation. POC: Balance challenges, gait/ stair training, strengthening, calf stretch prior to stagger stance sit to stand next session Plan of Care Dates Plan of Care Start Date 12/26/23 Plan of Care End Date 03/25/24 Electronically Signed by: Jasiel Vila, PT 12/26/23 2250 If you are in agreement with this Plan of Care, please return a signed and dated copy. I have reviewed this Plan of Care and certify that the skilled therapy services above are required to meet the patient?s needs. Physician Signature Date Printed Name and Credentials Clinical Instructor Signature Printed Name and Credentials
--- NOTE | 2024-01-04 16:00 | PT.OTN ---
Current Diagnoses Cerebral infarction, unspecified (01/04/24) Physical Therapy Treatment Note PT-OP-A Visit Information Start: 01/19/23 09:03 Freq: Status: Active Protocol: Document 01/04/24 15:21 DCW (Rec: 01/04/24 15:59 [facility] [id number]) Out-Patient Physical Therapy Visit Information Visit Information Visit Type Treatment Note Visit Start Time 15:21 Visit Stop Time 16:00 Visit Number 68 Number of ICE CREAM MAN Visits 0 Evaluation Information Evaluation Date 01/19/23 PT-OP-B Current Condition Start: 01/19/23 09:03 Freq: Status: Active Protocol: Document 01/19/23 13:29 ED (Rec: 01/19/23 13:41 ED [id number]) Current Condition History of Current Condition Onset Date June Current Complaints L sided hemiplegia History of Current Condition 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 He received home health and recently graduated from that. He states he wants to focus on his L UE as it has not made the same amount of progress as his L LE. He ambulates with a SPC and lives with his . he has to use the stairs constantly at home. He reports a few falls at home since the stroke. He says the only exercise he does at home currently is stairs. PT-OP-C Subjective Start: 01/19/23 09:03 Freq: Status: Active Protocol: Document 01/04/24 15:21 DCW (Rec: 01/04/24 15:59 GAW [id number]) OP-PT Subjective Patient Comments Patient Comments Pt feeling pretty good today. PT-OP-E Functional Tests Start: 01/19/23 09:03 Freq: Status: Active Protocol: Document 12/26/23 16:47 DCW (Rec: 12/26/23 17:10 DCW [id number]) Functional Tests 6 Minute Walk Test Distance 430' Device Used SPC Comments 1.19 ft/sec Five Times Sit to Stand Test Score 17.07 Comments no UEs Timed Up and Go (TUG) Score 19.7 /s AD Comments Three-trial average (20.5, 20. 84, 17.66) TUG Impairment Rating 80 to <100% Impaired (Score 18 -19) PT-OP-G Mobility & Gait Start: 01/19/23 09:03 Freq: Status: Active Protocol: Document 12/26/23 16:47 DCW (Rec: 12/26/23 17:10 DCW [id number]) OP Gait Assessment Gait Gait Assistance Required: Contact Guard Assist,1 Person Assist Distance (Feet) 430 Able to Maintain Weight Bearing Status No During Gait Assistive Devices Assistive Device Gait Belt,Straight Cane Gait Deviations General Gait Pattern Antalgic,Decreased Stride Length,Decreased Feet Clearance PT-OP-M Strength Start: 01/19/23 09:03 Freq: Status: Active Protocol: Document 07/05/23 15:15 DCW (Rec: 07/05/23 15:48 DCW [id number]) Hip Strength Hip Manual Muscle Testing Right Flexion (L2) 4+ Good+ Extension (S1) 4+ Good+ Abduction 4+ Good+ Adduction 4+ Good+ External Rotation 5 Normal Internal Rotation 5 Normal Left Flexion (L2) 3+ Fair+ Extension (S1) 4 Good Abduction 3+ Fair+ Adduction 4 Good External Rotation 3 Fair Internal Rotation 3- Fair- Knee Strength Knee Manual Muscle Testing Right Flexion (S2) 5 Normal Extension (L3) 5 Normal Left Flexion (S2) 2+ Poor+ Extension (L3) 4 Good Comments unable to dissociate hip and knee movements; goes into knee extension AND hip extension PT-OP-Q Treatments Start: 01/19/23 09:03 Freq: Status: Active Protocol: Document 01/04/24 15:21 DCW (Rec: 01/04/24 15:59 DCW [id number]) Cardio Equipment Recumbent Elliptical (Biodex) Duration (Minutes) 7 Resistance 5 Seat Position 13 Gym Equipment Shuttle Recovery Unilateral Squats Details L tactile cues Knee lat alignment, heel press asc/desc Resistance 50# Shuttle Recovery Platform Stable Bilateral Squats Details Adductor ball squeeze Resistance 100# Shuttle Recovery Platform Stable Shuttle Balance Red Details Staggered Neuro Re-Education Treatment Balance Activities Ball hit Details with pickle ball paddle and balls Comments Staggered stance on AirEx, fifi, overhead, and backhand, aim at cone targets PT-OP-T Assessment and Plan Start: 01/19/23 09:03 Freq: Status: Active Protocol: Document 01/04/24 15:21 DCW (Rec: 01/04/24 15:59 DCW [id number]) Physical Therapy Assessment Impairments Impairments Activity Tolerance,Balance, Functional Activities, Functional Mobility,Gait, Strength,Tone,Transfers Goals 6MWT Impairment 6MWT Short Term Goal (STG) Pt will improve 6MWT by 160 feet (MCID) to a score > 520 feet. STG Duration 11/26/23 - Improving (512') Nursing Home Goal (LTG) Pt will improve 6MWT by 320 feet (MCID) to a score > 680 feet. LTG Duration 03/25/24 stairs Impairment stair negotiation Brick Offbearer Goal (LTG) Pt will be able to ascend stairs with step through gait pattern and use single railing . LTG Duration MET muscle isolation Impairment muscle isolation Impairment unable to extend knee separately from hip extension Nursing Home Goal (LTG) Pt will be able to perform seated knee extensions using 5 # weight without compensatory hip extension. LTG Duration 03/25/24 HEP Impairment HEP Short Term Goal (STG) Pt will report performing HEP >3 days/week. STG Duration Met Assessment Summary Assessment Pt did well today, experiencing improved stability when on Shuttle Balance. Continue to focus on balance, activity tolerance, and stability. Physical Therapy Plan Frequency and Duration Frequency of Treatment 2x/Week Plan of Care Start Date 12/26/23 Plan of Care End Date 03/25/24 Therapeutic Interventions Therapeutic Interventions Gait Training,Home Exercise Program,Manual Therapy, Neuromuscular Re-education, Orthotic/Prosthetic Management ,Patient/Caregiver Education, Self-Care/Home Management,Soft Tissue Mobilization,Taping, Therapeutic Activities, Therapeutic Exercises Next Visit Focus/Plan Next Note Type Treatment Note Next Visit Plan Manual as needed, KFO, HS, Amy kohler. POC: Continue EC balance, strengthening mechanics LLE with postural corrections to support energy conservation. POC: Balance challenges, gait/ stair training, strengthening, calf stretch prior to stagger stance sit to stand next session
--- NOTE | 2024-01-11 10:42 | PT.OTN ---
Current Diagnoses Cerebral infarction, unspecified (01/11/24) Physical Therapy Treatment Note PT-OP-A Visit Information Start: 01/19/23 09:03 Freq: Status: Active Protocol: Document 01/11/24 08:49 AB (Rec: 01/11/24 10:41 AB [id number]) Out-Patient Physical Therapy Visit Information Visit Information Visit Type Treatment Note Visit Start Time 09:01 Visit Stop Time 09:45 Visit Number 69 Number of YARD CLEANER Visits 1 Evaluation Information Evaluation Date 01/19/23 PT-OP-B Current Condition Start: 01/19/23 09:03 Freq: Status: Active Protocol: Document 01/19/23 13:29 ED (Rec: 01/19/23 13:41 ED [id number]) Current Condition History of Current Condition Onset Date June Current Complaints L sided hemiplegia History of Current Condition 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 He received home health and recently graduated from that. He states he wants to focus on his L UE as it has not made the same amount of progress as his L LE. He ambulates with a SPC and lives with his . he has to use the stairs constantly at home. He reports a few falls at home since the stroke. He says the only exercise he does at home currently is stairs. PT-OP-C Subjective Start: 01/19/23 09:03 Freq: Status: Active Protocol: Document 01/11/24 08:49 AB (Rec: 01/11/24 10:41 AB [id number]) OP-PT Subjective Patient Comments Patient Comments Patient comments he feels about the same today, reports he had a period he felt he was not getting better, then followed by a period of getting better, but doesn't feel he is back to his highest point of improvement yet. PT-OP-E Functional Tests Start: 01/19/23 09:03 Freq: Status: Active Protocol: Document 12/26/23 16:47 DCW (Rec: 12/26/23 17:10 DCW [id number]) Functional Tests 6 Minute Walk Test Distance 430' Device Used SPC Comments 1.19 ft/sec Five Times Sit to Stand Test Score 17.07 Comments no UEs Timed Up and Go (TUG) Score 19.7 /s AD Comments Three-trial average (20.5, 20. 84, 17.66) TUG Impairment Rating 80 to <100% Impaired (Score 18 -19) PT-OP-G Mobility & Gait Start: 01/19/23 09:03 Freq: Status: Active Protocol: Document 12/26/23 16:47 DCW (Rec: 12/26/23 17:10 DCW [id number]) OP Gait Assessment Gait Gait Assistance Required: Contact Guard Assist,1 Person Assist Distance (Feet) 430 Able to Maintain Weight Bearing Status No During Gait Assistive Devices Assistive Device Gait Belt,Straight Cane Gait Deviations General Gait Pattern Antalgic,Decreased Stride Length,Decreased Feet Clearance PT-OP-M Strength Start: 01/19/23 09:03 Freq: Status: Active Protocol: Document 07/05/23 15:15 DCW (Rec: 07/05/23 15:48 DCW [id number]) Hip Strength Hip Manual Muscle Testing Right Flexion (L2) 4+ Good+ Extension (S1) 4+ Good+ Abduction 4+ Good+ Adduction 4+ Good+ External Rotation 5 Normal Internal Rotation 5 Normal Left Flexion (L2) 3+ Fair+ Extension (S1) 4 Good Abduction 3+ Fair+ Adduction 4 Good External Rotation 3 Fair Internal Rotation 3- Fair- Knee Strength Knee Manual Muscle Testing Right Flexion (S2) 5 Normal Extension (L3) 5 Normal Left Flexion (S2) 2+ Poor+ Extension (L3) 4 Good Comments unable to dissociate hip and knee movements; goes into knee extension AND hip extension PT-OP-Q Treatments Start: 01/19/23 09:03 Freq: Status: Active Protocol: Document 01/11/24 08:49 AB (Rec: 01/11/24 10:41 AB [id number]) Gym Equipment Shuttle Recovery Bilateral Squats Details Adductor ball squeeze Resistance 100# Shuttle Recovery Platform Stable Reps/Time X10 X3 first set w/o ball tactile cues Shuttle Balance Red Details Staggered Comments red right blue left with visual scanning and head movement, CGA Therapeutic Exercises Sitting Exercises seated hip abduction with band Resistance manual resistance Reps/Minutes one minute hold X 1 Comments verbal cues Standing Exercises calf stretch Standing Exercise Name gastroc and soleus Side bilateral Equipment Used CHRISTIANE, rail support RUE Reps/Minutes 2x 60 each Comments verbal cues Other Exercises Sit to stand Other Exercise Name CGA stand up step left then stand up step right into // using bar once upri Side bilateral Reps/Minutes 6 each direction Neuro Re-Education Treatment Balance Activities Ball hit Surface on floor for step and hit, on green therapads for target Comments Stagger on therapads with pads touching right LE back, 2 inches between bads with left LE back, CGA to very minimal assist. PT-OP-T Assessment and Plan Start: 01/19/23 09:03 Freq: Status: Active Protocol: Document 01/11/24 08:49 AB (Rec: 01/11/24 10:41 AB [id number]) Physical Therapy Assessment Goals 6MWT Impairment 6MWT Impairment IE: 360 feet with SPC Short Term Goal (STG) Pt will improve 6MWT by 160 feet (MCID) to a score > 520 feet. STG Duration 11/26/23 - Improving (512') Nursing Program Coordinator Goal (LTG) Pt will improve 6MWT by 320 feet (MCID) to a score > 680 feet. LTG Duration 03/25/24 stairs Impairment stair negotiation Longterm Goal (LTG) Pt will be able to ascend stairs with step through gait pattern and use single railing . LTG Duration MET muscle isolation Impairment muscle isolation Impairment unable to extend knee separately from hip extension Nursing Program Coordinator Goal (LTG) Pt will be able to perform seated knee extensions using 5 # weight without compensatory hip extension. LTG Duration 03/25/24 HEP Impairment HEP Short Term Goal (STG) Pt will report performing HEP >3 days/week. STG Duration Met Assessment Summary Assessment Kari reports having no pain end of session. Decreased geo to left LE back with modified tandem ie had to position pads ~2 inches aparts prior to initiation of pickle ball exercise. Physical Therapy Plan Frequency and Duration Frequency of Treatment 2x/Week Plan of Care Start Date 12/26/23 Plan of Care End Date 03/25/24 Next Visit Focus/Plan Next Note Type Treatment Note Next Visit Plan Manual as needed, KFO, HS, Amy stretch. POC: Continue EC balance, strengthening mechanics LLE with postural corrections to support energy conservation. POC: Balance challenges, gait/ stair training, strengthening, calf stretch prior to stagger stance sit to stand next session
--- NOTE | 2024-01-17 11:31 | PT.OTN ---
Current Diagnoses Cerebral infarction, unspecified (01/17/24) Physical Therapy Treatment Note PT-OP-A Visit Information Start: 01/19/23 09:03 Freq: Status: Active Protocol: Document 01/17/24 10:45 DCW (Rec: 01/17/24 11:31 DCW [id number]) Out-Patient Physical Therapy Visit Information Visit Information Visit Type Treatment Note Visit Start Time 10:45 Visit Stop Time 11:30 Visit Number 70 Number of [employer]ICE Visits 0 Evaluation Information Evaluation Date 01/19/23 PT-OP-B Current Condition Start: 01/19/23 09:03 Freq: Status: Active Protocol: Document 01/19/23 13:29 ED (Rec: 01/19/23 13:41 ED [id number]) Current Condition History of Current Condition Onset Date June Current Complaints L sided hemiplegia History of Current Condition 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 He received home health and recently graduated from that. He states he wants to focus on his L UE as it has not made the same amount of progress as his L LE. He ambulates with a SPC and lives with his . he has to use the stairs constantly at home. He reports a few falls at home since the stroke. He says the only exercise he does at home currently is stairs. PT-OP-C Subjective Start: 01/19/23 09:03 Freq: Status: Active Protocol: Document 01/17/24 10:45 DCW (Rec: 01/17/24 11:31 DCW [id number]) OP-PT Subjective Patient Comments Patient Comments Pt a little frustrated, notes he forgot his good cane over in [facility], [place], using his back-up, but knows where his cane is, just needs to go get it. PT-OP-E Functional Tests Start: 01/19/23 09:03 Freq: Status: Active Protocol: Document 12/26/23 16:47 DCW (Rec: 12/26/23 17:10 DCW [id number]) Functional Tests 6 Minute Walk Test Distance 430' Device Used SPC Comments 1.19 ft/sec Five Times Sit to Stand Test Score 17.07 Comments no UEs Timed Up and Go (TUG) Score 19.7 /s AD Comments Three-trial average (20.5, 20. 84, 17.66) TUG Impairment Rating 80 to <100% Impaired (Score 18 -19) PT-OP-G Mobility & Gait Start: 01/19/23 09:03 Freq: Status: Active Protocol: Document 12/26/23 16:47 DCW (Rec: 12/26/23 17:10 DCW [id number]) OP Gait Assessment Gait Gait Assistance Required: Contact Guard Assist,1 Person Assist Distance (Feet) 430 Able to Maintain Weight Bearing Status No During Gait Assistive Devices Assistive Device Gait Belt,Straight Cane Gait Deviations General Gait Pattern Antalgic,Decreased Stride Length,Decreased Feet Clearance PT-OP-M Strength Start: 01/19/23 09:03 Freq: Status: Active Protocol: Document 07/05/23 15:15 DCW (Rec: 07/05/23 15:48 DCW [id number]) Hip Strength Hip Manual Muscle Testing Right Flexion (L2) 4+ Good+ Extension (S1) 4+ Good+ Abduction 4+ Good+ Adduction 4+ Good+ External Rotation 5 Normal Internal Rotation 5 Normal Left Flexion (L2) 3+ Fair+ Extension (S1) 4 Good Abduction 3+ Fair+ Adduction 4 Good External Rotation 3 Fair Internal Rotation 3- Fair- Knee Strength Knee Manual Muscle Testing Right Flexion (S2) 5 Normal Extension (L3) 5 Normal Left Flexion (S2) 2+ Poor+ Extension (L3) 4 Good Comments unable to dissociate hip and knee movements; goes into knee extension AND hip extension PT-OP-Q Treatments Start: 01/19/23 09:03 Freq: Status: Active Protocol: Document 01/17/24 10:45 DCW (Rec: 01/17/24 11:31 DCW [id number]) Cardio Equipment Recumbent Elliptical (Biodex) Duration (Minutes) 6 Resistance 5 Seat Position 11 Gym Equipment Shuttle Recovery Unilateral Squats Resistance 50# Shuttle Recovery Platform Stable Bilateral Squats Resistance 100# Shuttle Recovery Platform Stable Shuttle Balance Red Details Staggered Therapeutic Exercises Standing Exercises calf stretch Standing Exercise Name gastroc and soleus Side bilateral Equipment Used CHRISTIANE, rail support RUE Reps/Minutes 2x 60 each Comments verbal cues Neuro Re-Education Treatment Balance Activities Ball hit Details with pickle ball paddle and balls Comments Adjust to varied tosses to hit balls to targets. Combined overhead, fifi, and backhand PT-OP-T Assessment and Plan Start: 01/19/23 09:03 Freq: Status: Active Protocol: Document 01/17/24 10:45 DCW (Rec: 01/17/24 11:31 DCW [id number]) Physical Therapy Assessment Impairments Impairments Activity Tolerance,Balance, Functional Activities, Functional Mobility,Gait, Strength,Tone,Transfers Goals 6MWT Impairment 6MWT Short Term Goal (STG) Pt will improve 6MWT by 160 feet (MCID) to a score > 520 feet. STG Duration 11/26/23 - Improving (512') Afloat Cryptologic Manager Goal (LTG) Pt will improve 6MWT by 320 feet (MCID) to a score > 680 feet. LTG Duration 03/25/24 stairs Impairment stair negotiation Skilled Nursing Goal (LTG) Pt will be able to ascend stairs with step through gait pattern and use single railing . LTG Duration MET muscle isolation Impairment muscle isolation Impairment unable to extend knee separately from hip extension Afloat Cryptologic Manager Goal (LTG) Pt will be able to perform seated knee extensions using 5 # weight without compensatory hip extension. LTG Duration 03/25/24 HEP Impairment HEP Short Term Goal (STG) Pt will report performing HEP >3 days/week. STG Duration Met Assessment Summary Assessment Pt had good response to increased variety in swings while attempting to hit pickle balls, had to adjust to varied heights and sides with no warning. Did not experience any LOB with weight shifts. Physical Therapy Plan Frequency and Duration Frequency of Treatment 2x/Week Plan of Care Start Date 12/26/23 Plan of Care End Date 03/25/24 Therapeutic Interventions Therapeutic Interventions Gait Training,Home Exercise Program,Manual Therapy, Neuromuscular Re-education, Orthotic/Prosthetic Management ,Patient/Caregiver Education, Self-Care/Home Management,Soft Tissue Mobilization,Taping, Therapeutic Activities, Therapeutic Exercises Next Visit Focus/Plan Next Note Type Treatment Note Next Visit Plan Manual as needed, KFO, HS, Amy stretch. POC: Continue EC balance, strengthening mechanics LLE with postural corrections to support energy conservation. POC: Balance challenges, gait/ stair training, strengthening, calf stretch prior to stagger stance sit to stand next session
--- NOTE | 2024-01-26 15:18 | PT.OTN ---
Current Diagnoses Cerebral infarction, unspecified (01/26/24) Physical Therapy Treatment Note PT-OP-A Visit Information Start: 01/19/23 09:03 Freq: Status: Active Protocol: Document 01/26/24 14:35 DCW (Rec: 01/26/24 15:18 DCW [id number]) Out-Patient Physical Therapy Visit Information Visit Information Visit Type Treatment Note Visit Start Time 14:35 Visit Stop Time 15:15 Visit Number 71 Number of [employer] ELECT[employer] SUPERVISOR Visits 0 Evaluation Information Evaluation Date 01/19/23 PT-OP-B Current Condition Start: 01/19/23 09:03 Freq: Status: Active Protocol: Document 01/19/23 13:29 ED (Rec: 01/19/23 13:41 ED [id number]) Current Condition History of Current Condition Onset Date June Current Complaints L sided hemiplegia History of Current Condition 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 He received home health and recently graduated from that. He states he wants to focus on his L UE as it has not made the same amount of progress as his L LE. He ambulates with a SPC and lives with his . he has to use the stairs constantly at home. He reports a few falls at home since the stroke. He says the only exercise he does at home currently is stairs. PT-OP-C Subjective Start: 01/19/23 09:03 Freq: Status: Active Protocol: Document 01/26/24 14:35 DCW (Rec: 01/26/24 15:18 DCW [id number]) OP-PT Subjective Patient Comments Patient Comments Pt notes he is doing well, despite sleeping poorly last night. PT-OP-E Functional Tests Start: 01/19/23 09:03 Freq: Status: Active Protocol: Document 12/26/23 16:47 DCW (Rec: 12/26/23 17:10 DCW [id number]) Functional Tests 6 Minute Walk Test Distance 430' Device Used SPC Comments 1.19 ft/sec Five Times Sit to Stand Test Score 17.07 Comments no UEs Timed Up and Go (TUG) Score 19.7 /s AD Comments Three-trial average (20.5, 20. 84, 17.66) TUG Impairment Rating 80 to <100% Impaired (Score 18 -19) PT-OP-G Mobility & Gait Start: 01/19/23 09:03 Freq: Status: Active Protocol: Document 12/26/23 16:47 DCW (Rec: 12/26/23 17:10 DCW [id number]) OP Gait Assessment Gait Gait Assistance Required: Contact Guard Assist,1 Person Assist Distance (Feet) 430 Able to Maintain Weight Bearing Status No During Gait Assistive Devices Assistive Device Gait Belt,Straight Cane Gait Deviations General Gait Pattern Antalgic,Decreased Stride Length,Decreased Feet Clearance PT-OP-M Strength Start: 01/19/23 09:03 Freq: Status: Active Protocol: Document 07/05/23 15:15 DCW (Rec: 07/05/23 15:48 DCW [id number]) Hip Strength Hip Manual Muscle Testing Right Flexion (L2) 4+ Good+ Extension (S1) 4+ Good+ Abduction 4+ Good+ Adduction 4+ Good+ External Rotation 5 Normal Internal Rotation 5 Normal Left Flexion (L2) 3+ Fair+ Extension (S1) 4 Good Abduction 3+ Fair+ Adduction 4 Good External Rotation 3 Fair Internal Rotation 3- Fair- Knee Strength Knee Manual Muscle Testing Right Flexion (S2) 5 Normal Extension (L3) 5 Normal Left Flexion (S2) 2+ Poor+ Extension (L3) 4 Good Comments unable to dissociate hip and knee movements; goes into knee extension AND hip extension PT-OP-Q Treatments Start: 01/19/23 09:03 Freq: Status: Active Protocol: Document 01/26/24 14:35 DCW (Rec: 01/26/24 15:18 DCW [id number]) Cardio Equipment Recumbent Stepper (Sci-Fit) Duration (Minutes) 6 Resistance 3 Seat Position 13 Gym Equipment Shuttle Balance Red Details Staggered (uneven 4) Therapeutic Exercises Standing Exercises Squats Standing Exercise Name Squats Equipment Used R UE support on side of shuttle balance Comments VCs for left foot positioning Neuro Re-Education Treatment Balance Activities Ball hit Details with pickle ball paddle and balls Comments Adjust to varied tosses to hit balls to targets. Combined overhead, fifi, and backhand PT-OP-T Assessment and Plan Start: 01/19/23 09:03 Freq: Status: Active Protocol: Document 01/26/24 14:35 DCW (Rec: 01/26/24 15:18 DCW [id number]) Physical Therapy Assessment Impairments Impairments Activity Tolerance,Balance, Functional Activities, Functional Mobility,Gait, Strength,Tone,Transfers Goals 6MWT Impairment 6MWT Short Term Goal (STG) Pt will improve 6MWT by 160 feet (MCID) to a score > 520 feet. STG Duration 11/26/23 - Improving (512') Care Home Goal (LTG) Pt will improve 6MWT by 320 feet (MCID) to a score > 680 feet. LTG Duration 03/25/24 stairs Impairment stair negotiation Care Home Goal (LTG) Pt will be able to ascend stairs with step through gait pattern and use single railing . LTG Duration MET muscle isolation Impairment muscle isolation Impairment unable to extend knee separately from hip extension Relocation Manager Goal (LTG) Pt will be able to perform seated knee extensions using 5 # weight without compensatory hip extension. LTG Duration 03/25/24 HEP Impairment HEP Short Term Goal (STG) Pt will report performing HEP >3 days/week. STG Duration Met Assessment Summary Assessment Pt did well with squats following therapist cues for repositioning of left foot. Continues to get better with weight-shift and balance hitting pickle balls using varied locations of the toss. Physical Therapy Plan Frequency and Duration Frequency of Treatment 2x/Week Plan of Care Start Date 12/26/23 Plan of Care End Date 03/25/24 Therapeutic Interventions Therapeutic Interventions Gait Training,Home Exercise Program,Manual Therapy, Neuromuscular Re-education, Orthotic/Prosthetic Management ,Patient/Caregiver Education, Self-Care/Home Management,Soft Tissue Mobilization,Taping, Therapeutic Activities, Therapeutic Exercises Next Visit Focus/Plan Next Note Type Treatment Note Next Visit Plan Manual as needed, EBENEZERO, STAN, Amy kohler. POC: Continue EC balance, strengthening mechanics LLE with postural corrections to support energy conservation. POC: Balance challenges, gait/ stair training, strengthening, calf stretch prior to stagger stance sit to stand next session
--- NOTE | 2024-02-01 10:40 | PT.OTN ---
Current Diagnoses Cerebral infarction, unspecified (02/01/24) Physical Therapy Treatment Note PT-OP-A Visit Information Start: 01/19/23 09:03 Freq: Status: Active Protocol: Document 02/01/24 08:50 AB (Rec: 02/01/24 10:40 AB [id number]) Out-Patient Physical Therapy Visit Information Visit Information Visit Type Treatment Note Visit Start Time 09:09 Visit Stop Time 09:45 Visit Number 72 Number of PLATE CLEANER Visits 1 Evaluation Information Evaluation Date 01/19/23 PT-OP-B Current Condition Start: 01/19/23 09:03 Freq: Status: Active Protocol: Document 01/19/23 13:29 ED (Rec: 01/19/23 13:41 ED [id number]) Current Condition History of Current Condition Onset Date June Current Complaints L sided hemiplegia History of Current Condition 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 He received home health and recently graduated from that. He states he wants to focus on his L UE as it has not made the same amount of progress as his L LE. He ambulates with a SPC and lives with his . he has to use the stairs constantly at home. He reports a few falls at home since the stroke. He says the only exercise he does at home currently is stairs. PT-OP-C Subjective Start: 01/19/23 09:03 Freq: Status: Active Protocol: Document 02/01/24 08:50 AB (Rec: 02/01/24 10:40 AB [id number]) OP-PT Subjective Patient Comments Patient Comments Patient ambulates with 3rd foot cane into session, slight stepping strategy noted X 1. Patient reports he is not sleeping, has people staying at house, dog has fleas too much exercise, legs are tired. Patient reports he has had no falls. PT-OP-E Functional Tests Start: 01/19/23 09:03 Freq: Status: Active Protocol: Document 12/26/23 16:47 DCW (Rec: 12/26/23 17:10 DCW [id number]) Functional Tests 6 Minute Walk Test Distance 430' Device Used SPC Comments 1.19 ft/sec Five Times Sit to Stand Test Score 17.07 Comments no UEs Timed Up and Go (TUG) Score 19.7 /s AD Comments Three-trial average (20.5, 20. 84, 17.66) TUG Impairment Rating 80 to <100% Impaired (Score 18 -19) PT-OP-G Mobility & Gait Start: 01/19/23 09:03 Freq: Status: Active Protocol: Document 12/26/23 16:47 DCW (Rec: 12/26/23 17:10 DCW [id number]) OP Gait Assessment Gait Gait Assistance Required: Contact Guard Assist,1 Person Assist Distance (Feet) 430 Able to Maintain Weight Bearing Status No During Gait Assistive Devices Assistive Device Gait Belt,Straight Cane Gait Deviations General Gait Pattern Antalgic,Decreased Stride Length,Decreased Feet Clearance PT-OP-M Strength Start: 01/19/23 09:03 Freq: Status: Active Protocol: Document 07/05/23 15:15 DCW (Rec: 07/05/23 15:48 DCW [id number]) Hip Strength Hip Manual Muscle Testing Right Flexion (L2) 4+ Good+ Extension (S1) 4+ Good+ Abduction 4+ Good+ Adduction 4+ Good+ External Rotation 5 Normal Internal Rotation 5 Normal Left Flexion (L2) 3+ Fair+ Extension (S1) 4 Good Abduction 3+ Fair+ Adduction 4 Good External Rotation 3 Fair Internal Rotation 3- Fair- Knee Strength Knee Manual Muscle Testing Right Flexion (S2) 5 Normal Extension (L3) 5 Normal Left Flexion (S2) 2+ Poor+ Extension (L3) 4 Good Comments unable to dissociate hip and knee movements; goes into knee extension AND hip extension PT-OP-Q Treatments Start: 01/19/23 09:03 Freq: Status: Active Protocol: Document 02/01/24 08:50 AB (Rec: 02/01/24 10:40 AB [id number]) Therapeutic Exercises Supine Exercises lower trunk rotation Supine Exercise Name LTR Equipment Used 2 min Comments Verbal cues, performed to relax muscles amy stretch Supine Exercise Name right LE on bolster and folded pillow left on mat Side left Reps/Minutes 2 min Comments VC for breathing from diahpragm Sitting Exercises seated hip abduction with band Resistance manual resistance Reps/Minutes one minute hold X 1 Comments verbal cues Standing Exercises bilateral heel raise Standing Exercise Name with UE support Reps/Minutes X10 Comments CGA vc to lower heels to floor slowly Squats Standing Exercise Name stagger stance left LE retro, with UE support Reps/Minutes X5 X3 calf stretch Standing Exercise Name gastroc and soleus Side bilateral Equipment Used CHRISTIANE, rail support RUE Reps/Minutes 3x 60 each Comments verbal cues Neuro Re-Education Treatment Balance Activities Ball hit Details with pickle ball paddle and balls Comments Adjust to varied tosses to hit balls to targets. Combined overhead, fifi, and backhand, also step and hit ball, and mini stagger left LE back on foam CGA throughout, to minimal assist for step and air ex. Other Activities glute med isometric Details manual resistance very light left LE Reps/Duration X1 one minute Comments seated hip abduction, trialed contralateral side for carryover PT-OP-T Assessment and Plan Start: 01/19/23 09:03 Freq: Status: Active Protocol: Document 02/01/24 08:50 AB (Rec: 02/01/24 10:40 AB [id number]) Physical Therapy Assessment Goals 6MWT Impairment 6MWT Impairment IE: 360 feet with SPC Short Term Goal (STG) Pt will improve 6MWT by 160 feet (MCID) to a score > 520 feet. STG Duration 11/26/23 - Improving (512') Drawing Checker Goal (LTG) Pt will improve 6MWT by 320 feet (MCID) to a score > 680 feet. LTG Duration 03/25/24 stairs Impairment stair negotiation Detention Goal (LTG) Pt will be able to ascend stairs with step through gait pattern and use single railing . LTG Duration MET muscle isolation Impairment muscle isolation Impairment unable to extend knee separately from hip extension Drawing Checker Goal (LTG) Pt will be able to perform seated knee extensions using 5 # weight without compensatory hip extension. LTG Duration 03/25/24 HEP Impairment HEP Short Term Goal (STG) Pt will report performing HEP >3 days/week. STG Duration Met Assessment Summary Assessment Good geo to ball hit activities CGA to very minimal assist with stepping and air ex. Physical Therapy Plan Frequency and Duration Frequency of Treatment 2x/Week Plan of Care Start Date 12/26/23 Plan of Care End Date 03/25/24 Next Visit Focus/Plan Next Note Type Treatment Note Next Visit Plan Manual as needed, KFO, STAN, Amy stretch. POC: Continue EC balance, strengthening mechanics LLE with postural corrections to support energy conservation. POC: Balance challenges, gait/ stair training, strengthening, calf stretch prior to stagger stance sit to stand next session
--- NOTE | 2024-02-07 16:35 | PT.OTN ---
Current Diagnoses Cerebral infarction, unspecified (02/07/24) Physical Therapy Treatment Note PT-OP-A Visit Information Start: 01/19/23 09:03 Freq: Status: Active Protocol: Document 02/07/24 12:58 AB (Rec: 02/07/24 16:35 AB [id number]) Out-Patient Physical Therapy Visit Information Visit Information Visit Type Treatment Note Visit Start Time 14:33 Visit Stop Time 15:15 Visit Number 73 Number of LANDFILL GAS TECHNICIAN Visits 2 Evaluation Information Evaluation Date 01/19/23 PT-OP-B Current Condition Start: 01/19/23 09:03 Freq: Status: Active Protocol: Document 01/19/23 13:29 ED (Rec: 01/19/23 13:41 ED [id number]) Current Condition History of Current Condition Onset Date June Current Complaints L sided hemiplegia History of Current Condition 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 He received home health and recently graduated from that. He states he wants to focus on his L UE as it has not made the same amount of progress as his L LE. He ambulates with a SPC and lives with his . he has to use the stairs constantly at home. He reports a few falls at home since the stroke. He says the only exercise he does at home currently is stairs. PT-OP-C Subjective Start: 01/19/23 09:03 Freq: Status: Active Protocol: Document 02/07/24 12:58 AB (Rec: 02/07/24 16:35 AB [id number]) OP-PT Subjective Patient Comments Patient Comments Patient reports feeling uncoordinated, reports he slept not even an hour last night due to flea problem at home. PT-OP-E Functional Tests Start: 01/19/23 09:03 Freq: Status: Active Protocol: Document 12/26/23 16:47 DCW (Rec: 12/26/23 17:10 DCW [id number]) Functional Tests 6 Minute Walk Test Distance 430' Device Used SPC Comments 1.19 ft/sec Five Times Sit to Stand Test Score 17.07 Comments no UEs Timed Up and Go (TUG) Score 19.7 /s AD Comments Three-trial average (20.5, 20. 84, 17.66) TUG Impairment Rating 80 to <100% Impaired (Score 18 -19) PT-OP-G Mobility & Gait Start: 01/19/23 09:03 Freq: Status: Active Protocol: Document 12/26/23 16:47 DCW (Rec: 12/26/23 17:10 DCW [id number]) OP Gait Assessment Gait Gait Assistance Required: Contact Guard Assist,1 Person Assist Distance (Feet) 430 Able to Maintain Weight Bearing Status No During Gait Assistive Devices Assistive Device Gait Belt,Straight Cane Gait Deviations General Gait Pattern Antalgic,Decreased Stride Length,Decreased Feet Clearance PT-OP-M Strength Start: 01/19/23 09:03 Freq: Status: Active Protocol: Document 07/05/23 15:15 DCW (Rec: 07/05/23 15:48 DCW [id number]) Hip Strength Hip Manual Muscle Testing Right Flexion (L2) 4+ Good+ Extension (S1) 4+ Good+ Abduction 4+ Good+ Adduction 4+ Good+ External Rotation 5 Normal Internal Rotation 5 Normal Left Flexion (L2) 3+ Fair+ Extension (S1) 4 Good Abduction 3+ Fair+ Adduction 4 Good External Rotation 3 Fair Internal Rotation 3- Fair- Knee Strength Knee Manual Muscle Testing Right Flexion (S2) 5 Normal Extension (L3) 5 Normal Left Flexion (S2) 2+ Poor+ Extension (L3) 4 Good Comments unable to dissociate hip and knee movements; goes into knee extension AND hip extension PT-OP-Q Treatments Start: 01/19/23 09:03 Freq: Status: Active Protocol: Document 02/07/24 12:58 AB (Rec: 02/07/24 16:35 AB [id number]) Gym Equipment Shuttle Recovery Unilateral Squats Resistance 50# Shuttle Recovery Platform Stable Bilateral Squats Resistance 100# Shuttle Recovery Platform Stable Shuttle Balance Red Details Staggered (uneven 4) Therapeutic Exercises Supine Exercises lower trunk rotation Supine Exercise Name LTR Equipment Used 2 min Comments Verbal cues, performed to relax muscles amy stretch Supine Exercise Name right LE on bolster and folded pillow left on mat Side bilateral Reps/Minutes 2 min Comments VC for breathing from diahpragm Sitting Exercises seated hip abduction with band Resistance manual resistance Reps/Minutes one minute hold X 1 Comments verbal cues ankle PF/DF Sitting Exercise Name AROM post stretch DF only Side bilateral Reps/Minutes x20 Standing Exercises side stepping Side bilateral Reps/Minutes 10 feet X 2 left and right Comments VC to avoid toeing out calf stretch Standing Exercise Name gastroc and soleus Side bilateral Equipment Used CHRISTIANE, rail support RUE Reps/Minutes 3x 60 each Comments verbal cues Neuro Re-Education Treatment Balance Activities step up taps Details CGA without UE use Reps/Duration X2 6 inch step then X 11 on 2 inch step Comments alternting LE in // bars retro stepping Reps/Duration 10 feet X 2 Comments CGA one UE use on // ar air ex Details 1. Romberg 2. marching Reps/Duration with eyes closed 1-2 min march X 12 Comments CGA Tandem Stance Details stepping Equipment // bars hand on bars Comments CGA 10 feet X 2 PT-OP-T Assessment and Plan Start: 01/19/23 09:03 Freq: Status: Active Protocol: Document 02/07/24 12:58 AB (Rec: 02/07/24 16:35 AB [id number]) Physical Therapy Assessment Goals 6MWT Impairment 6MWT Impairment IE: 360 feet with SPC Short Term Goal (STG) Pt will improve 6MWT by 160 feet (MCID) to a score > 520 feet. STG Duration 11/26/23 - Improving (512') Shredding Floor Equipment Operator Goal (LTG) Pt will improve 6MWT by 320 feet (MCID) to a score > 680 feet. LTG Duration 03/25/24 stairs Impairment stair negotiation Shredding Floor Equipment Operator Goal (LTG) Pt will be able to ascend stairs with step through gait pattern and use single railing . LTG Duration MET muscle isolation Impairment muscle isolation Impairment unable to extend knee separately from hip extension Shredding Floor Equipment Operator Goal (LTG) Pt will be able to perform seated knee extensions using 5 # weight without compensatory hip extension. LTG Duration 03/25/24 HEP Impairment HEP Short Term Goal (STG) Pt will report performing HEP >3 days/week. STG Duration Met Assessment Summary Assessment Kari rates pain 0/10 pain end of session. Kari into session reporting feeling uncoordinated, due to fatigue. Good particpation this session, but ball hit not performed due to patient feeling tired and uncoordinated. Physical Therapy Plan Frequency and Duration Frequency of Treatment 2x/Week Plan of Care Start Date 12/26/23 Plan of Care End Date 03/25/24 Next Visit Focus/Plan Next Note Type Treatment Note Next Visit Plan Manual as needed, KFO, HS, Amy stretch. POC: Continue EC balance, strengthening mechanics LLE with postural corrections to support energy conservation. POC: Balance challenges, gait/ stair training, strengthening, calf stretch prior to stagger stance sit to stand next session
--- NOTE | 2024-02-15 16:10 | PT.OTN ---
Current Diagnoses Cerebral infarction, unspecified (02/15/24) Physical Therapy Treatment Note PT-OP-A Visit Information Start: 01/19/23 09:03 Freq: Status: Active Protocol: Document 02/15/24 14:06 AB (Rec: 02/15/24 16:10 AB [id number]) Out-Patient Physical Therapy Visit Information Visit Information Visit Type Treatment Note Visit Start Time 14:37 Visit Stop Time 15:15 Visit Number 74 Number of DATA ENTRY ASSISTANT Visits 3 Evaluation Information Evaluation Date 01/19/23 PT-OP-B Current Condition Start: 01/19/23 09:03 Freq: Status: Active Protocol: Document 01/19/23 13:29 ED (Rec: 01/19/23 13:41 ED [id number]) Current Condition History of Current Condition Onset Date June Current Complaints L sided hemiplegia History of Current Condition 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 He received home health and recently graduated from that. He states he wants to focus on his L UE as it has not made the same amount of progress as his L LE. He ambulates with a SPC and lives with his . he has to use the stairs constantly at home. He reports a few falls at home since the stroke. He says the only exercise he does at home currently is stairs. PT-OP-C Subjective Start: 01/19/23 09:03 Freq: Status: Active Protocol: Document 02/15/24 14:06 AB (Rec: 02/15/24 16:10 AB [id number]) OP-PT Subjective Patient Comments Patient Comments Patient reports he feels a little better than he did previous session, but is still not sleeping well and doesn't feel that much better. Patient reports having no pain start of session. Patient did not bring his pickle ball stuff as it is in 's car, and he doesn't feel up to it today. PT-OP-E Functional Tests Start: 01/19/23 09:03 Freq: Status: Active Protocol: Document 12/26/23 16:47 DCW (Rec: 12/26/23 17:10 DCW [id number]) Functional Tests 6 Minute Walk Test Distance 430' Device Used SPC Comments 1.19 ft/sec Five Times Sit to Stand Test Score 17.07 Comments no UEs Timed Up and Go (TUG) Score 19.7 /s AD Comments Three-trial average (20.5, 20. 84, 17.66) TUG Impairment Rating 80 to <100% Impaired (Score 18 -19) PT-OP-G Mobility & Gait Start: 01/19/23 09:03 Freq: Status: Active Protocol: Document 12/26/23 16:47 DCW (Rec: 12/26/23 17:10 DCW [id number]) OP Gait Assessment Gait Gait Assistance Required: Contact Guard Assist,1 Person Assist Distance (Feet) 430 Able to Maintain Weight Bearing Status No During Gait Assistive Devices Assistive Device Gait Belt,Straight Cane Gait Deviations General Gait Pattern Antalgic,Decreased Stride Length,Decreased Feet Clearance PT-OP-M Strength Start: 01/19/23 09:03 Freq: Status: Active Protocol: Document 07/05/23 15:15 DCW (Rec: 07/05/23 15:48 DCW [id number]) Hip Strength Hip Manual Muscle Testing Right Flexion (L2) 4+ Good+ Extension (S1) 4+ Good+ Abduction 4+ Good+ Adduction 4+ Good+ External Rotation 5 Normal Internal Rotation 5 Normal Left Flexion (L2) 3+ Fair+ Extension (S1) 4 Good Abduction 3+ Fair+ Adduction 4 Good External Rotation 3 Fair Internal Rotation 3- Fair- Knee Strength Knee Manual Muscle Testing Right Flexion (S2) 5 Normal Extension (L3) 5 Normal Left Flexion (S2) 2+ Poor+ Extension (L3) 4 Good Comments unable to dissociate hip and knee movements; goes into knee extension AND hip extension PT-OP-Q Treatments Start: 01/19/23 09:03 Freq: Status: Active Protocol: Document 02/15/24 14:06 AB (Rec: 02/15/24 16:10 AB [id number]) Therapeutic Exercises Sitting Exercises seated hip abduction with band Resistance manual resistance Reps/Minutes one minute hold X 1 Comments verbal cues stagger stance sit to stand Right LE fwd Sitting Exercise Name with UE use Equipment Used with tapping to facilitate quad left LE Reps/Minutes 1 X10 Comments post calf stretch, set up for left LE retro right fwd ankle PF/DF Sitting Exercise Name AROM post stretch DF only Side bilateral Reps/Minutes x15 Standing Exercises calf stretch Standing Exercise Name gastroc and soleus Side bilateral Equipment Used CHRISTIANE, rail support BUE Reps/Minutes 3x 60 each Comments verbal cues Therapeutic Activity Therapeutic Activity wall posture Comments back to wall with 3rd foot cane. Verbal cues for shoulders and head back then to hold that position and notice where eyes are when stepping away from wall. Neuro Re-Education Treatment Balance Activities step up taps Details CGA without UE use Reps/Duration 2 inch block X retro stepping Reps/Duration 10 feet X 1 Comments left UE CREATIVE ENGAGEMENT DIRECTOR right initiates with hand above bar wall fall Details Retro fall to wall Reps/Duration x10 Comments CGA Tandem Stance Details stepping Equipment initiates right UE above, left hand held assist Comments CGA 10 feet X 3 Tilt board Details Lateral weight shift and AP Reps/Duration X10 each Comments No UE support on // bar CGA PT-OP-T Assessment and Plan Start: 01/19/23 09:03 Freq: Status: Active Protocol: Document 02/15/24 14:06 AB (Rec: 02/15/24 16:10 AB [id number]) Physical Therapy Assessment Goals 6MWT Impairment 6MWT Impairment IE: 360 feet with SPC Short Term Goal (STG) Pt will improve 6MWT by 160 feet (MCID) to a score > 520 feet. STG Duration 11/26/23 - Improving (512') Commission Clerk Goal (LTG) Pt will improve 6MWT by 320 feet (MCID) to a score > 680 feet. LTG Duration 03/25/24 stairs Impairment stair negotiation Retirement Goal (LTG) Pt will be able to ascend stairs with step through gait pattern and use single railing . LTG Duration MET muscle isolation Impairment muscle isolation Impairment unable to extend knee separately from hip extension Commission Clerk Goal (LTG) Pt will be able to perform seated knee extensions using 5 # weight without compensatory hip extension. LTG Duration 03/25/24 HEP Impairment HEP Short Term Goal (STG) Pt will report performing HEP >3 days/week. STG Duration Met Assessment Summary Assessment Kari reports having no pain end of session, improved clearance left LE with verbal cues for posture and post wall posture check. Physical Therapy Plan Frequency and Duration Frequency of Treatment 2x/Week Plan of Care Start Date 12/26/23 Plan of Care End Date 03/25/24 Next Visit Focus/Plan Next Note Type Treatment Note Next Visit Plan Manual as needed, KFO, HS, Amy stretch. POC: Continue EC balance, strengthening mechanics LLE with postural corrections to support energy conservation. POC: Balance challenges, gait/ stair training, strengthening, calf stretch prior to stagger stance sit to stand next session
--- NOTE | 2024-02-21 17:55 | PT.OTN ---
Current Diagnoses Cerebral infarction, unspecified (02/21/24) Physical Therapy Treatment Note PT-OP-A Visit Information Start: 01/19/23 09:03 Freq: Status: Active Protocol: Document 02/21/24 17:05 DCW (Rec: 02/21/24 17:54 DCW [id number]) Out-Patient Physical Therapy Visit Information Visit Information Visit Start Time 17:05 Visit Stop Time 17:45 Visit Number 75 Number of BEACH LIFEGUARD Visits 0 Evaluation Information Evaluation Date 01/19/23 PT-OP-B Current Condition Start: 01/19/23 09:03 Freq: Status: Active Protocol: Document 01/19/23 13:29 ED (Rec: 01/19/23 13:41 ED [id number]) Current Condition History of Current Condition Onset Date June Current Complaints L sided hemiplegia History of Current Condition 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 He received home health and recently graduated from that. He states he wants to focus on his L UE as it has not made the same amount of progress as his L LE. He ambulates with a SPC and lives with his . he has to use the stairs constantly at home. He reports a few falls at home since the stroke. He says the only exercise he does at home currently is stairs. PT-OP-C Subjective Start: 01/19/23 09:03 Freq: Status: Active Protocol: Document 02/21/24 17:05 DCW (Rec: 02/21/24 17:54 DCW [id number]) OP-PT Subjective Patient Comments Patient Comments Pt notes he is still not sleeping as well as he usually does, which he notices affects his balance. PT-OP-E Functional Tests Start: 01/19/23 09:03 Freq: Status: Active Protocol: Document 12/26/23 16:47 DCW (Rec: 12/26/23 17:10 DCW [id number]) Functional Tests 6 Minute Walk Test Distance 430' Device Used SPC Comments 1.19 ft/sec Five Times Sit to Stand Test Score 17.07 Comments no UEs Timed Up and Go (TUG) Score 19.7 /s AD Comments Three-trial average (20.5, 20. 84, 17.66) TUG Impairment Rating 80 to <100% Impaired (Score 18 -19) PT-OP-G Mobility & Gait Start: 01/19/23 09:03 Freq: Status: Active Protocol: Document 12/26/23 16:47 DCW (Rec: 12/26/23 17:10 DCW [id number]) OP Gait Assessment Gait Gait Assistance Required: Contact Guard Assist,1 Person Assist Distance (Feet) 430 Able to Maintain Weight Bearing Status No During Gait Assistive Devices Assistive Device Gait Belt,Straight Cane Gait Deviations General Gait Pattern Antalgic,Decreased Stride Length,Decreased Feet Clearance PT-OP-M Strength Start: 01/19/23 09:03 Freq: Status: Active Protocol: Document 07/05/23 15:15 DCW (Rec: 07/05/23 15:48 DCW [id number]) Hip Strength Hip Manual Muscle Testing Right Flexion (L2) 4+ Good+ Extension (S1) 4+ Good+ Abduction 4+ Good+ Adduction 4+ Good+ External Rotation 5 Normal Internal Rotation 5 Normal Left Flexion (L2) 3+ Fair+ Extension (S1) 4 Good Abduction 3+ Fair+ Adduction 4 Good External Rotation 3 Fair Internal Rotation 3- Fair- Knee Strength Knee Manual Muscle Testing Right Flexion (S2) 5 Normal Extension (L3) 5 Normal Left Flexion (S2) 2+ Poor+ Extension (L3) 4 Good Comments unable to dissociate hip and knee movements; goes into knee extension AND hip extension PT-OP-Q Treatments Start: 01/19/23 09:03 Freq: Status: Active Protocol: Document 02/21/24 17:05 DCW (Rec: 02/21/24 17:54 DCW [id number]) Cardio Equipment Recumbent Elliptical (Biodex) Duration (Minutes) 6 Resistance 5 Seat Position 11 Gym Equipment Shuttle Recovery Unilateral Squats Resistance 50# Shuttle Recovery Platform Stable Bilateral Squats Resistance 100# Shuttle Recovery Platform Stable Neuro Re-Education Treatment Balance Activities Ball hit Details with pickle ball paddle and balls Comments Ball toss from left side to work on left visual tracking PT-OP-T Assessment and Plan Start: 01/19/23 09:03 Freq: Status: Active Protocol: Document 02/21/24 17:05 DCW (Rec: 02/21/24 17:54 DCW [id number]) Physical Therapy Assessment Impairments Impairments Activity Tolerance,Balance, Functional Activities, Functional Mobility,Gait, Strength,Tone,Transfers Goals 6MWT Impairment 6MWT Impairment IE: 360 feet with SPC Short Term Goal (STG) Pt will improve 6MWT by 160 feet (MCID) to a score > 520 feet. STG Duration 11/26/23 - Improving (512') Field Talent Qualification Specialist Goal (LTG) Pt will improve 6MWT by 320 feet (MCID) to a score > 680 feet. LTG Duration 03/25/24 stairs Impairment stair negotiation Field Talent Qualification Specialist Goal (LTG) Pt will be able to ascend stairs with step through gait pattern and use single railing . LTG Duration MET muscle isolation Impairment muscle isolation Impairment unable to extend knee separately from hip extension Field Talent Qualification Specialist Goal (LTG) Pt will be able to perform seated knee extensions using 5 # weight without compensatory hip extension. LTG Duration 03/25/24 HEP Impairment HEP Short Term Goal (STG) Pt will report performing HEP >3 days/week. STG Duration Met Assessment Summary Assessment Tossing ball from left side to challenge visual tracking from left added increased difficulty for pt to hit ball with paddle. Continue to work on balance, activity tolerance , gait, and functional mobility. Physical Therapy Plan Frequency and Duration Frequency of Treatment 2x/Week Plan of Care Start Date 12/26/23 Plan of Care End Date 03/25/24 Next Visit Focus/Plan Next Note Type Treatment Note Next Visit Plan Manual as needed, EBENEZERO, STAN, Amy kohler. POC: Continue EC balance, strengthening mechanics LLE with postural corrections to support energy conservation. POC: Balance challenges, gait/ stair training, strengthening, calf stretch prior to stagger stance sit to stand next session
--- NOTE | 2024-02-27 16:00 | PT.OTN ---
Current Diagnoses Cerebral infarction, unspecified (02/27/24) Physical Therapy Treatment Note PT-OP-A Visit Information Start: 01/19/23 09:03 Freq: Status: Active Protocol: Document 02/27/24 12:52 AB (Rec: 02/27/24 14:22 AB [id number]) Out-Patient Physical Therapy Visit Information Visit Information Visit Type Treatment Note Visit Start Time 13:02 Visit Stop Time 13:45 Visit Number 76 Number of SPECIMEN ACCESSIONER Visits 1 Evaluation Information Evaluation Date 01/19/23 PT-OP-B Current Condition Start: 01/19/23 09:03 Freq: Status: Active Protocol: Document 01/19/23 13:29 ED (Rec: 01/19/23 13:41 ED [id number]) Current Condition History of Current Condition Onset Date June Current Complaints L sided hemiplegia History of Current Condition 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 He received home health and recently graduated from that. He states he wants to focus on his L UE as it has not made the same amount of progress as his L LE. He ambulates with a SPC and lives with his . he has to use the stairs constantly at home. He reports a few falls at home since the stroke. He says the only exercise he does at home currently is stairs. PT-OP-C Subjective Start: 01/19/23 09:03 Freq: Status: Active Protocol: Document 02/27/24 12:52 AB (Rec: 02/27/24 14:22 AB [id number]) OP-PT Subjective Patient Comments Patient Comments Patient reports he did not sleep well last night, feels unsteady today. Patient reports he has had no falls since previous session. Patient ambulates into session with 3rd foot cane scuffing left foot X 10. PT-OP-E Functional Tests Start: 01/19/23 09:03 Freq: Status: Active Protocol: Document 12/26/23 16:47 DCW (Rec: 12/26/23 17:10 DCW [id number]) Functional Tests 6 Minute Walk Test Distance 430' Device Used SPC Comments 1.19 ft/sec Five Times Sit to Stand Test Score 17.07 Comments no UEs Timed Up and Go (TUG) Score 19.7 /s AD Comments Three-trial average (20.5, 20. 84, 17.66) TUG Impairment Rating 80 to <100% Impaired (Score 18 -19) PT-OP-G Mobility & Gait Start: 01/19/23 09:03 Freq: Status: Active Protocol: Document 12/26/23 16:47 DCW (Rec: 12/26/23 17:10 DCW [id number]) OP Gait Assessment Gait Gait Assistance Required: Contact Guard Assist,1 Person Assist Distance (Feet) 430 Able to Maintain Weight Bearing Status No During Gait Assistive Devices Assistive Device Gait Belt,Straight Cane Gait Deviations General Gait Pattern Antalgic,Decreased Stride Length,Decreased Feet Clearance PT-OP-M Strength Start: 01/19/23 09:03 Freq: Status: Active Protocol: Document 07/05/23 15:15 DCW (Rec: 07/05/23 15:48 DCW [id number]) Hip Strength Hip Manual Muscle Testing Right Flexion (L2) 4+ Good+ Extension (S1) 4+ Good+ Abduction 4+ Good+ Adduction 4+ Good+ External Rotation 5 Normal Internal Rotation 5 Normal Left Flexion (L2) 3+ Fair+ Extension (S1) 4 Good Abduction 3+ Fair+ Adduction 4 Good External Rotation 3 Fair Internal Rotation 3- Fair- Knee Strength Knee Manual Muscle Testing Right Flexion (S2) 5 Normal Extension (L3) 5 Normal Left Flexion (S2) 2+ Poor+ Extension (L3) 4 Good Comments unable to dissociate hip and knee movements; goes into knee extension AND hip extension PT-OP-Q Treatments Start: 01/19/23 09:03 Freq: Status: Active Protocol: Document 02/27/24 12:52 AB (Rec: 02/27/24 14:22 AB [id number]) Gym Equipment Shuttle Recovery Unilateral Squats Details L tactile cues Knee lat alignment, heel press asc/desc Shuttle Recovery Platform Stable Bilateral Squats Resistance 100# Shuttle Recovery Platform Stable Reps/Time X15 Shuttle Balance Red Details Staggered Comments with left UE support catch with right Stagger with visual scanning and head turns CGA throughout. Therapeutic Exercises Sitting Exercises seated hip abduction with band Resistance manual resistance and level one band Reps/Minutes one minute and X 6 X 2 in and out with band and manual resistance Standing Exercises bilateral heel raise Standing Exercise Name with UE support Reps/Minutes X10 Comments CGA vc to lower heels to floor slowly calf stretch Standing Exercise Name gastroc and soleus Side bilateral Equipment Used CHRISTIANE, rail support BUE Reps/Minutes 2x 60 each Comments verbal cues Neuro Re-Education Treatment Balance Activities Ball hit Details with pickle ball paddle and balls Comments Ball toss from left side to work on left visual tracking with stepping then with slight stagger Left LE back bilateral UE on paddle Tilt board Details Lateral weight shift Reps/Duration X10 each Comments No UE support on // bar CGA PT-OP-T Assessment and Plan Start: 01/19/23 09:03 Freq: Status: Active Protocol: Document 02/27/24 12:52 AB (Rec: 02/27/24 14:22 AB [id number]) Physical Therapy Assessment Goals 6MWT Impairment 6MWT Impairment IE: 360 feet with SPC Short Term Goal (STG) Pt will improve 6MWT by 160 feet (MCID) to a score > 520 feet. STG Duration 11/26/23 - Improving (512') Detention Goal (LTG) Pt will improve 6MWT by 320 feet (MCID) to a score > 680 feet. LTG Duration 03/25/24 stairs Impairment stair negotiation Panel Raiser Operator Goal (LTG) Pt will be able to ascend stairs with step through gait pattern and use single railing . LTG Duration MET muscle isolation Impairment muscle isolation Impairment unable to extend knee separately from hip extension Detention Goal (LTG) Pt will be able to perform seated knee extensions using 5 # weight without compensatory hip extension. LTG Duration 03/25/24 HEP Impairment HEP Short Term Goal (STG) Pt will report performing HEP >3 days/week. STG Duration Met Assessment Summary Assessment Patient reports he feels betterh than when he came in. Physical Therapy Plan Frequency and Duration Frequency of Treatment 2x/Week Plan of Care Start Date 12/26/23 Plan of Care End Date 03/25/24 Next Visit Focus/Plan Next Note Type Progress Note Next Visit Plan Manual as needed, KFO, HS, Amy stretch. POC: Continue EC balance, strengthening mechanics LLE with postural corrections to support energy conservation. POC: Balance challenges, gait/ stair training, strengthening, calf stretch prior to stagger stance sit to stand next session
--- NOTE | 2024-02-29 16:03 | PT.OTN ---
Current Diagnoses Cerebral infarction, unspecified (02/29/24) Physical Therapy Treatment Note PT-OP-A Visit Information Start: 01/19/23 09:03 Freq: Status: Active Protocol: Document 02/29/24 15:25 DCW (Rec: 02/29/24 16:02 DCW [id number]) Out-Patient Physical Therapy Visit Information Visit Information Visit Type Progress Note Visit Note 10 minutes late Visit Start Time 15:25 Visit Stop Time 16:00 Visit Number 77 Number of ALLERGIST/PEDIATRIC PULMONOLOGIST Visits 0 Evaluation Information Evaluation Date 01/19/23 PT-OP-B Current Condition Start: 01/19/23 09:03 Freq: Status: Active Protocol: Document 01/19/23 13:29 ED (Rec: 01/19/23 13:41 ED [id number]) Current Condition History of Current Condition Onset Date June Current Complaints L sided hemiplegia History of Current Condition 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 He received home health and recently graduated from that. He states he wants to focus on his L UE as it has not made the same amount of progress as his L LE. He ambulates with a SPC and lives with his . he has to use the stairs constantly at home. He reports a few falls at home since the stroke. He says the only exercise he does at home currently is stairs. PT-OP-C Subjective Start: 01/19/23 09:03 Freq: Status: Active Protocol: Document 02/29/24 15:25 DCW (Rec: 02/29/24 16:02 DCW [id number]) OP-PT Subjective Patient Comments Patient Comments I finally got some sleep last night, I got about 7 hours, thats the mopst sleep I've had in weeks. PT-OP-E Functional Tests Start: 01/19/23 09:03 Freq: Status: Active Protocol: Document 12/26/23 16:47 DCW (Rec: 12/26/23 17:10 DCW [id number]) Functional Tests 6 Minute Walk Test Distance 430' Device Used SPC Comments 1.19 ft/sec Five Times Sit to Stand Test Score 17.07 Comments no UEs Timed Up and Go (TUG) Score 19.7 /s AD Comments Three-trial average (20.5, 20. 84, 17.66) TUG Impairment Rating 80 to <100% Impaired (Score 18 -19) PT-OP-G Mobility & Gait Start: 01/19/23 09:03 Freq: Status: Active Protocol: Document 12/26/23 16:47 DCW (Rec: 12/26/23 17:10 DCW [id number]) OP Gait Assessment Gait Gait Assistance Required: Contact Guard Assist,1 Person Assist Distance (Feet) 430 Able to Maintain Weight Bearing Status No During Gait Assistive Devices Assistive Device Gait Belt,Straight Cane Gait Deviations General Gait Pattern Antalgic,Decreased Stride Length,Decreased Feet Clearance PT-OP-M Strength Start: 01/19/23 09:03 Freq: Status: Active Protocol: Document 07/05/23 15:15 DCW (Rec: 07/05/23 15:48 DCW [id number]) Hip Strength Hip Manual Muscle Testing Right Flexion (L2) 4+ Good+ Extension (S1) 4+ Good+ Abduction 4+ Good+ Adduction 4+ Good+ External Rotation 5 Normal Internal Rotation 5 Normal Left Flexion (L2) 3+ Fair+ Extension (S1) 4 Good Abduction 3+ Fair+ Adduction 4 Good External Rotation 3 Fair Internal Rotation 3- Fair- Knee Strength Knee Manual Muscle Testing Right Flexion (S2) 5 Normal Extension (L3) 5 Normal Left Flexion (S2) 2+ Poor+ Extension (L3) 4 Good Comments unable to dissociate hip and knee movements; goes into knee extension AND hip extension PT-OP-Q Treatments Start: 01/19/23 09:03 Freq: Status: Active Protocol: Document 02/29/24 15:25 DCW (Rec: 02/29/24 16:02 DCW [id number]) Cardio Equipment Recumbent Elliptical (Biodex) Duration (Minutes) 6 Resistance 5 Seat Position 11 Gym Equipment Shuttle Balance Red Details WBOS, Staggered Neuro Re-Education Treatment Balance Activities Ball hit Details with pickle ball paddle and balls Comments Adjust to varied tosses to hit balls to targets. Combined overhead, fifi, and backhand, also step and hit ball, and mini stagger left LE back on foam CGA throughout, to minimal assist for step and air ex. PT-OP-T Assessment and Plan Start: 01/19/23 09:03 Freq: Status: Active Protocol: Document 02/29/24 15:25 DCW (Rec: 02/29/24 16:02 DCW [id number]) Physical Therapy Assessment Impairments Impairments Activity Tolerance,Balance, Functional Activities, Functional Mobility,Gait, Strength,Tone,Transfers Goals 6MWT Impairment 6MWT Impairment IE: 360 feet with SPC Short Term Goal (STG) Pt will improve 6MWT by 160 feet (MCID) to a score > 520 feet. STG Duration 11/26/23 - Improving (512') [facility] Goal (LTG) Pt will improve 6MWT by 320 feet (MCID) to a score > 680 feet. LTG Duration 03/25/24 stairs Impairment stair negotiation Credit Collections Rep Goal (LTG) Pt will be able to ascend stairs with step through gait pattern and use single railing . LTG Duration MET muscle isolation Impairment muscle isolation Impairment unable to extend knee separately from hip extension [facility] Goal (LTG) Pt will be able to perform seated knee extensions using 5 # weight without compensatory hip extension. LTG Duration 03/25/24 HEP Impairment HEP Short Term Goal (STG) Pt will report performing HEP >3 days/week. STG Duration Met Assessment Summary Assessment Pt admits continued struggle with shuttle balance. hitting pickle balls doing good with working on weight shift and visual tracking. Continue to focus on balance, activity tolerance, gait, and visual tracking. Minimal recent change to gait speed, pt still somewhat inconsistent with HEP. Physical Therapy Plan Frequency and Duration Frequency of Treatment 2x/Week Plan of Care Start Date 12/26/23 Plan of Care End Date 03/25/24 Therapeutic Interventions Therapeutic Interventions Gait Training,Home Exercise Program,Manual Therapy, Neuromuscular Re-education, Orthotic/Prosthetic Management ,Patient/Caregiver Education, Self-Care/Home Management,Soft Tissue Mobilization,Taping, Therapeutic Activities, Therapeutic Exercises Next Visit Focus/Plan Next Note Type Treatment Note Next Visit Plan Manual as needed, KFO, STAN, Amy kohler. POC: Continue EC balance, strengthening mechanics LLE with postural corrections to support energy conservation. POC: Balance challenges, gait/ stair training, strengthening, calf stretch prior to stagger stance sit to stand next session
--- NOTE | 2024-03-05 14:26 | PT.OTN ---
Current Diagnoses Cerebral infarction, unspecified (03/05/24) Physical Therapy Treatment Note PT-OP-A Visit Information Start: 01/19/23 09:03 Freq: Status: Active Protocol: Document 03/05/24 13:50 DCW (Rec: 03/05/24 14:26 DCW [id number]) Out-Patient Physical Therapy Visit Information Visit Information Visit Type Treatment Note Visit Start Time 13:50 Visit Stop Time 14:30 Visit Number 78 Number of COMMUNITY HEALTH DIRECTOR Visits 0 Evaluation Information Evaluation Date 01/19/23 PT-OP-B Current Condition Start: 01/19/23 09:03 Freq: Status: Active Protocol: Document 01/19/23 13:29 ED (Rec: 01/19/23 13:41 ED [id number]) Current Condition History of Current Condition Onset Date June Current Complaints L sided hemiplegia History of Current Condition 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 He received home health and recently graduated from that. He states he wants to focus on his L UE as it has not made the same amount of progress as his L LE. He ambulates with a SPC and lives with his . he has to use the stairs constantly at home. He reports a few falls at home since the stroke. He says the only exercise he does at home currently is stairs. PT-OP-C Subjective Start: 01/19/23 09:03 Freq: Status: Active Protocol: Document 03/05/24 13:50 DCW (Rec: 03/05/24 14:26 DCW [id number]) OP-PT Subjective Patient Comments Patient Comments I don't know, I don't think I 'm progressing as much any more. PT-OP-E Functional Tests Start: 01/19/23 09:03 Freq: Status: Active Protocol: Document 12/26/23 16:47 DCW (Rec: 12/26/23 17:10 DCW [id number]) Functional Tests 6 Minute Walk Test Distance 430' Device Used SPC Comments 1.19 ft/sec Five Times Sit to Stand Test Score 17.07 Comments no UEs Timed Up and Go (TUG) Score 19.7 /s AD Comments Three-trial average (20.5, 20. 84, 17.66) TUG Impairment Rating 80 to <100% Impaired (Score 18 -19) PT-OP-G Mobility & Gait Start: 01/19/23 09:03 Freq: Status: Active Protocol: Document 12/26/23 16:47 DCW (Rec: 12/26/23 17:10 DCW [id number]) OP Gait Assessment Gait Gait Assistance Required: Contact Guard Assist,1 Person Assist Distance (Feet) 430 Able to Maintain Weight Bearing Status No During Gait Assistive Devices Assistive Device Gait Belt,Straight Cane Gait Deviations General Gait Pattern Antalgic,Decreased Stride Length,Decreased Feet Clearance PT-OP-M Strength Start: 01/19/23 09:03 Freq: Status: Active Protocol: Document 07/05/23 15:15 DCW (Rec: 07/05/23 15:48 DCW [id number]) Hip Strength Hip Manual Muscle Testing Right Flexion (L2) 4+ Good+ Extension (S1) 4+ Good+ Abduction 4+ Good+ Adduction 4+ Good+ External Rotation 5 Normal Internal Rotation 5 Normal Left Flexion (L2) 3+ Fair+ Extension (S1) 4 Good Abduction 3+ Fair+ Adduction 4 Good External Rotation 3 Fair Internal Rotation 3- Fair- Knee Strength Knee Manual Muscle Testing Right Flexion (S2) 5 Normal Extension (L3) 5 Normal Left Flexion (S2) 2+ Poor+ Extension (L3) 4 Good Comments unable to dissociate hip and knee movements; goes into knee extension AND hip extension PT-OP-Q Treatments Start: 01/19/23 09:03 Freq: Status: Active Protocol: Document 03/05/24 13:50 DCW (Rec: 03/05/24 14:26 DCW [id number]) Cardio Equipment Recumbent Elliptical (Biodex) Duration (Minutes) 6 Resistance 5 Seat Position 13 Gym Equipment Shuttle Recovery Unilateral Squats Resistance 50# Shuttle Recovery Platform Stable Reps/Time x15 Bilateral Squats Resistance 100# Shuttle Recovery Platform Stable Reps/Time x15 Shuttle Balance Red Details WBOS, Staggered Neuro Re-Education Treatment Balance Activities Ball hit Details with pickle ball paddle and balls Comments Adjust to varied tosses to hit balls to targets. Combined overhead, fifi, and backhand, also step and hit ball, and mini stagger left LE back on foam CGA throughout, to minimal assist for step and air ex. PT-OP-T Assessment and Plan Start: 01/19/23 09:03 Freq: Status: Active Protocol: Document 03/05/24 13:50 DCW (Rec: 03/05/24 14:26 DCW [id number]) Physical Therapy Assessment Impairments Impairments Activity Tolerance,Balance, Functional Activities, Functional Mobility,Gait, Strength,Tone,Transfers Goals 6MWT Impairment 6MWT Impairment IE: 360 feet with SPC Short Term Goal (STG) Pt will improve 6MWT by 160 feet (MCID) to a score > 520 feet. STG Duration 11/26/23 - Improving (512') Training Program Developer Goal (LTG) Pt will improve 6MWT by 320 feet (MCID) to a score > 680 feet. LTG Duration 03/25/24 stairs Impairment stair negotiation [facility] Goal (LTG) Pt will be able to ascend stairs with step through gait pattern and use single railing . LTG Duration MET muscle isolation Impairment muscle isolation Impairment unable to extend knee separately from hip extension Training Program Developer Goal (LTG) Pt will be able to perform seated knee extensions using 5 # weight without compensatory hip extension. LTG Duration 03/25/24 HEP Impairment HEP Short Term Goal (STG) Pt will report performing HEP >3 days/week. STG Duration Met Assessment Summary Assessment Pt demonstrating significant improvement on Shuttle Balance today, able to self-correct much more quickly. Fatigued by leg press, but did well with iit. Physical Therapy Plan Frequency and Duration Frequency of Treatment 2x/Week Plan of Care Start Date 12/26/23 Plan of Care End Date 03/25/24 Therapeutic Interventions Therapeutic Interventions Gait Training,Home Exercise Program,Manual Therapy, Neuromuscular Re-education, Orthotic/Prosthetic Management ,Patient/Caregiver Education, Self-Care/Home Management,Soft Tissue Mobilization,Taping, Therapeutic Activities, Therapeutic Exercises Next Visit Focus/Plan Next Note Type Treatment Note Next Visit Plan Manual as needed, KFO, HS, Amy kohler. POC: Continue EC balance, strengthening mechanics LLE with postural corrections to support energy conservation. POC: Balance challenges, gait/ stair training, strengthening, calf stretch prior to stagger stance sit to stand next session
--- NOTE | 2024-03-07 15:17 | PT.OTN ---
Current Diagnoses Cerebral infarction, unspecified (03/07/24) Physical Therapy Treatment Note PT-OP-A Visit Information Start: 01/19/23 09:03 Freq: Status: Active Protocol: Document 03/07/24 14:40 DCW (Rec: 03/07/24 15:16 DCW [id number]) Out-Patient Physical Therapy Visit Information Visit Information Visit Type Treatment Note Visit Note 10 minutes late Visit Start Time 14:40 Visit Stop Time 15:15 Visit Number 79 Number of AIX ARCHITECT Visits 0 Evaluation Information Evaluation Date 01/19/23 PT-OP-B Current Condition Start: 01/19/23 09:03 Freq: Status: Active Protocol: Document 01/19/23 13:29 ED (Rec: 01/19/23 13:41 ED [id number]) Current Condition History of Current Condition Onset Date June Current Complaints L sided hemiplegia History of Current Condition 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 He received home health and recently graduated from that. He states he wants to focus on his L UE as it has not made the same amount of progress as his L LE. He ambulates with a SPC and lives with his . he has to use the stairs constantly at home. He reports a few falls at home since the stroke. He says the only exercise he does at home currently is stairs. PT-OP-C Subjective Start: 01/19/23 09:03 Freq: Status: Active Protocol: Document 03/07/24 14:40 DCW (Rec: 03/07/24 15:17 DCW [id number]) OP-PT Subjective Patient Comments Patient Comments Pt reports he is doing well today, looking forward ot Thanksgiving tomorrow. PT-OP-E Functional Tests Start: 01/19/23 09:03 Freq: Status: Active Protocol: Document 12/26/23 16:47 DCW (Rec: 12/26/23 17:10 DCW [id number]) Functional Tests 6 Minute Walk Test Distance 430' Device Used SPC Comments 1.19 ft/sec Five Times Sit to Stand Test Score 17.07 Comments no UEs Timed Up and Go (TUG) Score 19.7 /s AD Comments Three-trial average (20.5, 20. 84, 17.66) TUG Impairment Rating 80 to <100% Impaired (Score 18 -19) PT-OP-G Mobility & Gait Start: 01/19/23 09:03 Freq: Status: Active Protocol: Document 12/26/23 16:47 DCW (Rec: 12/26/23 17:10 DCW [id number]) OP Gait Assessment Gait Gait Assistance Required: Contact Guard Assist,1 Person Assist Distance (Feet) 430 Able to Maintain Weight Bearing Status No During Gait Assistive Devices Assistive Device Gait Belt,Straight Cane Gait Deviations General Gait Pattern Antalgic,Decreased Stride Length,Decreased Feet Clearance PT-OP-M Strength Start: 01/19/23 09:03 Freq: Status: Active Protocol: Document 07/05/23 15:15 DCW (Rec: 07/05/23 15:48 DCW [id number]) Hip Strength Hip Manual Muscle Testing Right Flexion (L2) 4+ Good+ Extension (S1) 4+ Good+ Abduction 4+ Good+ Adduction 4+ Good+ External Rotation 5 Normal Internal Rotation 5 Normal Left Flexion (L2) 3+ Fair+ Extension (S1) 4 Good Abduction 3+ Fair+ Adduction 4 Good External Rotation 3 Fair Internal Rotation 3- Fair- Knee Strength Knee Manual Muscle Testing Right Flexion (S2) 5 Normal Extension (L3) 5 Normal Left Flexion (S2) 2+ Poor+ Extension (L3) 4 Good Comments unable to dissociate hip and knee movements; goes into knee extension AND hip extension PT-OP-Q Treatments Start: 01/19/23 09:03 Freq: Status: Active Protocol: Document 03/07/24 14:40 DCW (Rec: 03/07/24 15:16 DCW [id number]) Cardio Equipment Recumbent Elliptical (Biodex) Duration (Minutes) 6 Resistance 5 Seat Position 13 Gym Equipment Shuttle Balance Red Details WBOS, Staggered Neuro Re-Education Treatment Balance Activities Ball hit Details with pickle ball paddle and balls Comments Adjust to varied tosses to hit balls to targets. Combined overhead, fifi, and backhand, also step and hit ball, and mini stagger left LE back on foam CGA throughout, to minimal assist for step and air ex. PT-OP-T Assessment and Plan Start: 01/19/23 09:03 Freq: Status: Active Protocol: Document 03/07/24 14:40 DCW (Rec: 03/07/24 15:16 DCW [id number]) Physical Therapy Assessment Impairments Impairments Activity Tolerance,Balance, Functional Activities, Functional Mobility,Gait, Strength,Tone,Transfers Goals 6MWT Impairment 6MWT Impairment IE: 360 feet with SPC Short Term Goal (STG) Pt will improve 6MWT by 160 feet (MCID) to a score > 520 feet. STG Duration 11/26/23 - Improving (512') Shelter Goal (LTG) Pt will improve 6MWT by 320 feet (MCID) to a score > 680 feet. LTG Duration 03/25/24 stairs Impairment stair negotiation Shelter Goal (LTG) Pt will be able to ascend stairs with step through gait pattern and use single railing . LTG Duration MET muscle isolation Impairment muscle isolation Impairment unable to extend knee separately from hip extension Shelter Goal (LTG) Pt will be able to perform seated knee extensions using 5 # weight without compensatory hip extension. LTG Duration 03/25/24 HEP Impairment HEP Short Term Goal (STG) Pt will report performing HEP >3 days/week. STG Duration Met Assessment Summary Assessment Pt getting much more active with weight shifting and visual tracking when trying to hit pickle balls. Continue to focus on activity tolerance, balance, strength, and gait training. Physical Therapy Plan Frequency and Duration Frequency of Treatment 2x/Week Plan of Care Start Date 12/26/23 Plan of Care End Date 03/25/24 Therapeutic Interventions Therapeutic Interventions Gait Training,Home Exercise Program,Manual Therapy, Neuromuscular Re-education, Orthotic/Prosthetic Management ,Patient/Caregiver Education, Self-Care/Home Management,Soft Tissue Mobilization,Taping, Therapeutic Activities, Therapeutic Exercises Next Visit Focus/Plan Next Note Type Treatment Note Next Visit Plan Manual as needed, KFO, HS, Amy kohler. POC: Continue EC balance, strengthening mechanics LLE with postural corrections to support energy conservation. POC: Balance challenges, gait/ stair training, strengthening, calf stretch prior to stagger stance sit to stand next session
--- NOTE | 2024-07-16 15:02 | PT.OPDS ---
Current Diagnoses Cerebral infarction, unspecified (03/07/24) Visit Care Team Role Provider Type Kristian Kim MD Attending Provider Physician Family Provider Primary Care Provider Referring Provider Specialty: Family Practice Address: [address] [place] [address], [facility] Email: [email or web address] Visit Number Visit Number [id number] Discharge Summary PT-OP-B Current Condition Start: 01/19/23 09:03 Freq: Status: Active Protocol: Document 01/19/23 13:29 ED (Rec: 01/19/23 13:41 ED [id number]) Current Condition History of Current Condition Onset Date June Current Complaints L sided hemiplegia History of Current Condition 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 He received home health and recently graduated from that. He states he wants to focus on his L UE as it has not made the same amount of progress as his L LE. He ambulates with a SPC and lives with his . he has to use the stairs constantly at home. He reports a few falls at home since the stroke. He says the only exercise he does at home currently is stairs. PT-OP-C Subjective Start: 01/19/23 09:03 Freq: Status: Active Protocol: Document 03/07/24 14:40 DCW (Rec: 03/07/24 15:17 DCW [id number]) OP-PT Subjective Patient Comments Patient Comments Pt reports he is doing well today, looking forward ot Thanksgiving tomorrow. PT-OP-E Functional Tests Start: 01/19/23 09:03 Freq: Status: Active Protocol: Document 12/26/23 16:47 DCW (Rec: 12/26/23 17:10 DCW [id number]) Functional Tests 6 Minute Walk Test Distance 430' Device Used SPC Comments 1.19 ft/sec Five Times Sit to Stand Test Score 17.07 Comments no UEs Timed Up and Go (TUG) Score 19.7 /s AD Comments Three-trial average (20.5, 20. 84, 17.66) TUG Impairment Rating 80 to <100% Impaired (Score 18 -19) PT-OP-G Mobility & Gait Start: 01/19/23 09:03 Freq: Status: Active Protocol: Document 12/26/23 16:47 DCW (Rec: 12/26/23 17:10 DCW [id number]) OP Gait Assessment Gait Gait Assistance Required: Contact Guard Assist,1 Person Assist Distance (Feet) 430 Able to Maintain Weight Bearing Status No During Gait Assistive Devices Assistive Device Gait Belt,Straight Cane Gait Deviations General Gait Pattern Antalgic,Decreased Stride Length,Decreased Feet Clearance PT-OP-M Strength Start: 01/19/23 09:03 Freq: Status: Active Protocol: Document 07/05/23 15:15 DCW (Rec: 07/05/23 15:48 DCW [id number]) Hip Strength Hip Manual Muscle Testing Right Flexion (L2) 4+ Good+ Extension (S1) 4+ Good+ Abduction 4+ Good+ Adduction 4+ Good+ External Rotation 5 Normal Internal Rotation 5 Normal Left Flexion (L2) 3+ Fair+ Extension (S1) 4 Good Abduction 3+ Fair+ Adduction 4 Good External Rotation 3 Fair Internal Rotation 3- Fair- Knee Strength Knee Manual Muscle Testing Right Flexion (S2) 5 Normal Extension (L3) 5 Normal Left Flexion (S2) 2+ Poor+ Extension (L3) 4 Good Comments unable to dissociate hip and knee movements; goes into knee extension AND hip extension PT-OP-T Assessment and Plan Start: 01/19/23 09:03 Freq: Status: Active Protocol: Document 07/16/24 15:01 DCW (Rec: 07/16/24 15:02 DCW [id number]) Physical Therapy Assessment Assessment Summary Assessment Pt unfortunately decided to shop attending PT due to associated cost. Pt will require a new referral in order to return in the future. Pt to be discharged from skilled PT at this time. Physical Therapy Plan Discharge Physical Therapy Discharge Reasons No Longer Attending PT Next Visit Focus/Plan Next Note Type Discharge Summary
== END 2024-07-16 15:11 | disposition home or self-care (01) ==
LOC: PHYS 14:30
PROVIDERS: Family Provider Family Medicine; PCP Family Medicine; Referring Provider Family Medicine; Visit Provider Family Medicine
DX: I63.9 Cerebral infarction, unspecified (principal)
CPT/HCPCS: 97110; 97112; 97116; 97140; 97162; 97530; 97535